=== PATIENT | male | born 1950 | race African-American/Black ===

== ENCOUNTER 2017-05-01 11:02 | Emergency (ER) | payer MEDICARE ==
--- NOTE | 2017-05-01 12:18 | RAD ---
PA AND LATERAL CHEST: INDICATIONS: Shortness of breath and upper back pain. COMPARISON: Prior exam dated 04/22/2005. FINDINGS: There is mild cardiomegaly, which has developed in the interim. Pulmonary vasculature is within nor mal limits. No air space consolidation or pleural effusion is evident. There is spondylosis of the thoracic spine. IMPRESSION: 1. Interval development of mild to moderate cardiomegaly. 2. No definite acute abnormality. POS: KATHY
[2017-05-01] MEDS ORDERED: Acetaminophen/Codeine 30-300mg Tablet ONE (13:12)
[2017-05-01] MEDS ORDERED: Diazepam 5 MG TAB ONE (13:13)
== END 2017-05-01 13:20 | disposition home or self-care (01) ==
LOC: SCSER 11:02
DX: T14.8XXA Other injury of unspecified body region, initial encounter (principal); M54.9 Dorsalgia, unspecified; E11.9 Type 2 diabetes mellitus without complications; E78.5 Hyperlipidemia, unspecified; I10 Essential (primary) hypertension; Z85.46 Personal history of malignant neoplasm of prostate
CPT/HCPCS: 71020; 93005

== ENCOUNTER 2017-05-27 09:46 | Outpatient (CLI) | payer MEDICARE ==
--- NOTE | 2017-05-27 15:34 | NM ---
WHOLE BODY BONE SCAN: HISTORY: Prostate cancer with bone mets. RADIOPHARMACEUTICAL: 33 mCi Technetium 99m-MDP injected intravenously. COMPARISON: 09/08/16. FINDINGS: There has been interval reduction in the number of foci of increased uptake in the skeleton including the skull, rib cage, spine, sacrum, sternum, and scapulae. There is tracer in the urinary bladder. Poor visualization of the kidneys is noted on the current and the comparison study. IMPRESSION: Interval improvement in osseous metastatic disease since 09/08/16. POS: ABDOUL
== END 2017-05-27 09:47 | disposition home or self-care (01) ==
LOC: NM 09:46
PROVIDERS: ATTEND Internal Medicine Hematology & Oncology
DX: C79.51 Secondary malignant neoplasm of bone (principal); Z85.46 Personal history of malignant neoplasm of prostate
CPT/HCPCS: 78306; A9503

== ENCOUNTER 2017-06-10 11:36 | Outpatient (CLI) | payer MEDICARE | END 2017-06-10 11:37 | disposition home or self-care (01) | LOC: BICRAD 11:36 | PROVIDERS: ATTEND Internal Medicine Gastroenterology | DX: K59.09 Other constipation (principal); K57.30 Diverticulosis of large intestine without perforation or abscess without bleeding; R14.0 Abdominal distension (gaseous); Z98.890 Other specified postprocedural states | CPT/HCPCS: 74020 ==

== ENCOUNTER 2017-10-02 15:06 | Outpatient (CLI) | payer MEDICARE | END 2017-10-02 15:07 | disposition home or self-care (01) | LOC: BICRAD 15:06 | PROVIDERS: ATTEND Family Medicine | DX: J20.8 Acute bronchitis due to other specified organisms (principal) | CPT/HCPCS: 71046 ==

== ENCOUNTER 2017-12-01 08:35 | Outpatient (CLI) | payer MEDICARE ==
--- NOTE | 2017-12-01 14:11 | NM ---
WHOLE BODY BONE SCAN: Date: 12/01/17 HISTORY: Prostate cancer with bone mets. RADIOPHARMACEUTICAL: 31 mCi technetium-99m MDP injected intravenously. COMPARISON: 05/27/17. FINDINGS: There has been interval development of focal increased uptake in the ribs and left calvarium. The foc i of increased uptake noted on the previous exam in the spine, sacrum, sternum, scapulae, and facial bones are again seen. There is tracer material in the urinary bladder. There is poor visualization of the kidneys, which wa s also noted on the previous exams. IMPRESSION: Interval worsening of osseous metastatic disease since 05/27/17. POS: KATHY
== END 2017-12-01 08:36 | disposition home or self-care (01) ==
LOC: NM 08:35
PROVIDERS: ATTEND Internal Medicine Hematology & Oncology
DX: C61 Malignant neoplasm of prostate (principal); C79.51 Secondary malignant neoplasm of bone
CPT/HCPCS: 78306; A9503

== ENCOUNTER 2017-12-07 12:16 | Emergency (ER) | payer MEDICARE ==
[2017-12-07] MEDS ORDERED: Mineral Oil ENEMA ONE (12:48)
[2017-12-07 13:25] LABS: #Basophils 0.1 thou/uL (0.0-0.2); #Eosinphils 0.1 thou/uL (0.0-0.7); #Lymphocytes 2.1 thou/uL (1.20-3.40); #Monocytes 0.8 thou/uL (0.11-0.59); #Neutrophils 5.2 thou/uL (1.40-6.50); %Basophils 1.2 % (0.0-1.0); %Eosinophils 1.1 % (0.0-10.0); %Lymphocytes 25.5 % (21.0-51.0); %Monocytes 9.5 % (0.0-10.0); %Neutrophils 62.7 % (42.0-75.0); Hemoglobin 10.6 g/dL (14.0-18.0); Mean Corpuscular HGB CONC 31.7 g/dL (32.0-36.0); Mean Corpuscular Hemoglobin 28.9 pg (27.0-31.0); Mean Platelet Volume 7.4 fL (7.4-10.4); Platelet Count 224 thou/uL (130-400); RBC Distribution Width 15.7 % (11.5-14.5); Red Blood Cell (RBC) Count 3.67 mill/uL (4.70-6.10); White Blood Cell (WBC) Count 8.3 thou/uL (4.8-10.8)
[2017-12-07] MEDS ORDERED: Acetaminophen/Codeine 30-300mg Tablet ONE ×2 (13:35)
== END 2017-12-07 13:41 | disposition home or self-care (01) ==
LOC: SCSER 12:16
DX: K59.00 Constipation, unspecified (principal); E11.9 Type 2 diabetes mellitus without complications; E78.5 Hyperlipidemia, unspecified; Z79.4 Long term (current) use of insulin; Z79.899 Other long term (current) drug therapy; Z79.82 Long term (current) use of aspirin
CPT/HCPCS: 85025; 99283

== ENCOUNTER → 2017-12-24 | Outpatient (CLI) | payer MEDICARE | LOC: SCSMRI 12:23 → SCSLAB 13:00 | PROVIDERS: ATTEND Internal Medicine Hematology & Oncology | DX: C61 Malignant neoplasm of prostate (principal); C79.51 Secondary malignant neoplasm of bone; M79.651 Pain in right thigh; M25.551 Pain in right hip | CPT/HCPCS: 82565 ==

== ENCOUNTER 2018-02-01 14:30 | Outpatient (CLI) | payer MEDICARE ==
[~2018-02-01 14:30] MED LIST: Gadobenate Dimeglumine 529 MG/1 ML (20ML VIAL) ONE
--- NOTE | 2018-02-01 19:52 | MRI ---
MRI LUMBAR SPINE WITH AND WITHOUT CONTRAST: 02/01/18 INDICATION: Malignant neoplasm of prostate, right thigh and hip pain. FINDINGS: Diffuse abnormal marrow signal with multifocal T1 hypointensities does indicate diffuse metastatic di sease in light of patient's history as well as a recent abnormal bone scan, 12/01/17. In addition, the re is an abnormal, ovoid, soft tissue lesion of the anterior right subarticular zone of the inferior L2-3 disc space level, through the cephalad L3-4 disc space level, resulting in obliteration of the r ight side nerve roots as well as impression upon the thecal sac. The largest extent of this finding i s craniocaudal in dimension, at approximately 2.4 cm. Suggestion of subtle, internal enhancement, alt fidelina no well defined peripheral enhancement to indicate disc material and therefore, a metastatic le [place] is favored based on the imaging characteristics. No significant mass effect upon the imaged conu s medullaris, which terminates at the T12-L1 level. No pathologic intramedullary enhancement is ident ified. Within the partially imaged osseous structures, of the pelvis, bilaterally, there are diffuse abnorma l foci of marrow signal alteration indicative of metastatic disease. Incidental note of bilateral renal cysts, marked atrophy of left kidney and prominent sized cystic ri ght renal plvis, incompletely evaluated on the basis of this exam. A partially imaged right lower anyi drant/right hemipelvic renal transplant is seen. Age expected degenerative findings are seen within the lumbar spine. There is trace spondylolisthesis at L5-S1. IMPRESSION: Diffuse osseous metastatic disease. In addition, there is a soft tissue lesion of the vertebral canal centered at the L3 level, right subarticular region with imaging features that favor metastatic lesi on over extruded disc material, as discussed above. POS: ABDOUL
--- NOTE | 2018-02-05 14:55 | MRI ---
MRI PELVIS WITH AND WITHOUT CONTRAST: Date: 02/01/18 HISTORY: C61 prostate cancer, C79.51 bone mets. COMPARISON: Nuclear medicine bone scan dated 12/01/17. FINDINGS: Prostate: There has been prior prostatectomy. No abnormal focal area of enhancement within the prostatectomy be d. The exam was not adequately performed for a prostate protocol. There is abnormal thickening of the sigmoid colon with extensive diverticular disease. No evidence fo r active inflammation. Bones: Extensive osseous metastatic disease throughout the hips bilaterally. No pathologic fracture is appre ciated. Severe degenerative change of the pubic symphysis. Lymph Nodes: No abnormal adenopathy of the pelvis. Right pelvic kidney is present. IMPRESSION: 1. No evidence of abnormal residual tumor within the prostatectomy bed. 2. Severe thickening of the sigmoid colon, may be sequelae of prior bouts of diverticulitis, althoug h mass cannot be totally excluded. Recommend correlation with patient's colonoscopy. 3. Extensive osseous metastatic disease. 4. Right pelvic kidney. 5. No obturator or internal iliac adenopathy. POS: ABDOUL
== END 2018-02-01 14:31 | disposition home or self-care (01) ==
LOC: TBSIIMAG 14:30
PROVIDERS: ATTEND Internal Medicine Hematology & Oncology
DX: C79.51 Secondary malignant neoplasm of bone (principal); M79.651 Pain in right thigh; K63.89 Other specified diseases of intestine; G95.89 Other specified diseases of spinal cord; Z85.46 Personal history of malignant neoplasm of prostate
CPT/HCPCS: 72158; 72197; 82565; A9579

== ENCOUNTER 2018-04-15 15:28 | Outpatient (CLI) | payer MEDICARE ==
--- NOTE | 2018-04-16 10:45 | CT ---
LEFT LOWER EXTREMITY CT WITHOUT IV CONTRAST: History: 68-year-old male with history of prostate CA with bone metastasis. FINDINGS: Noncontrast CT examination of the left lower extremity from the superior acetabular region down to ju st below the level of the knee. There is some heterogeneous mildly sclerotic changes within the left visualized pelvis, evidence for bone metastasis. In the left femoral shaft there are multiple endosteal foci of abnormal increased de nsity, evidence for metaphysis, the most prominent of which is at the junction of the subtrochanteric and femoral shaft. This focus measures 1 x 1.3 x 1.4 cm in size. There are multiple other foci of ab normal increased attenuation changes within the medullary canal in an endosteal location down the sha ft, evidence for multiple metastasis. No evidence for a pathologic fracture. IMPRESSION: Multiple endosteal metastasis from the subtrochanteric region down into the femoral shaft. Some scler otic foci within the left hemipelvis. No evidence for a pathologic fracture. POS: ABDOUL
--- NOTE | 2018-04-16 11:20 | CT ---
LUMBAR SPINE CT SCAN WITHOUT IV CONTRAST: History: 68-year-old male with history of prostate cancer with low back pain and left hip pain. Comparison: Prior lumbar spine MRI, 02-01-18; bone scan, 12-01-17. FINDINGS: Extensive sclerotic and lytic bone metastasis throughout the entire lumbar spine vertebrae including the sacrum. There is some central vertical height loss of T11 vertebral body which appears to be new when compared to the prior MRI which could represent a new mild, possibly pathologic central compress ion injury. The [place] kidneys are small and show some cystic changes, particularly on the right side . There is a 0.9 x 1.5 x 2.5 cm diameter extradural mass on the right side at the L3 vertebral body l evel, evidence for metastasis. This does not appear to be significantly changed from the prior MR. Th ere is a focal extruded disc at L4-5 in the left paracentral area containing gas. IMPRESSION: Extensive lytic and sclerotic bone metastasis throughout the lumbar spine. Minimal central vertical h eight loss at T11 vertebral body, new from the prior MRI study of 02-01-18 raising concern for an inte rvening pathologic compression fracture. Stable right extradural soft tissue mass, evidence for metas tasis at the L3 vertebral body, unchanged from prior MRI. Other findings as above. POS: ABDOUL
== END 2018-04-15 15:29 | disposition home or self-care (01) ==
LOC: BICCT 15:28
PROVIDERS: ATTEND Internal Medicine Hematology & Oncology
DX: C79.51 Secondary malignant neoplasm of bone (principal); Z85.46 Personal history of malignant neoplasm of prostate
CPT/HCPCS: 72131

== ENCOUNTER 2018-04-20 09:34 | Outpatient (CLI) | payer MEDICARE ==
[2018-04-20] MEDS ORDERED: Gadobenate Dimeglumine 529 MG/1 ML (20ML VIAL) ONE (10:39)
--- NOTE | 2018-04-20 16:01 | MRI ---
MRI OF THE THORACIC SPINE WITHOUT AND WITH CONTRAST: COMPARISON: None. HISTORY: Prostate cancer with bone metastases. Evaluate for impending spinal cord compression. TECHNIQUE: Multiplanar, multisequence MR images were obtained of the thoracic spine without and with IV contrast . FINDINGS: There is a heterogeneous appearance of the marrow signal with low signal on T1 images consistent with a diffuse marrow infiltrative process. This is consistent with the patient's diagnosis of osseous m etastases from prostate cancer. There is a 1.7 cm nodule along the right aspect of the lower thoraci c vertebral body. The visualized cord demonstrates normal signal throughout. The paraspinal soft ti ssues are unremarkable. No abnormal enhancement is seen within the central canal. No significant posterior bulging of the po sterior aspect of the vertebral body is seen. No significant posterior bulge or protrusion is seen t hroughout the thoracic spine. No neural foraminal stenosis. No central canal stenosis. IMPRESSION: 1. Diffuse osseous metastatic disease without significant central canal impingement or cord compress ion. 2. There is a nodule adjacent to the right aspect of the lower thoracic vertebral body which may rep resent an enlarged retroperitoneal or retrocrural lymph node. POS: TPC
== END 2018-04-20 09:35 | disposition home or self-care (01) ==
LOC: MRI 09:34
PROVIDERS: ATTEND Radiology Radiation Oncology
DX: C79.51 Secondary malignant neoplasm of bone (principal); C61 Malignant neoplasm of prostate; M89.9 Disorder of bone, unspecified
CPT/HCPCS: 72157; A9579

== ENCOUNTER 2018-04-25 09:38 | Inpatient (IN) | payer MEDICARE ==
[2018-04-25 10:24] LABS: #Eosinphils 0.1 thou/uL (0.0-0.7); #Lymphocytes 2.5 thou/uL (1.20-3.40); #Monocytes 0.9 thou/uL (0.11-0.59); #Neutrophils 6.9 thou/uL (1.40-6.50); %Basophils 0.3 % (0.0-1.0); %Eosinophils 1.3 % (0.0-10.0); %Lymphocytes 23.9 % (21.0-51.0); %Monocytes 8.5 % (0.0-10.0); %Neutrophils 66.1 % (42.0-75.0); Hemoglobin 10.9 g/dL (14.0-18.0); Mean Corpuscular HGB CONC 31.9 g/dL (32.0-36.0); Mean Corpuscular Hemoglobin 29.1 pg (27.0-31.0); Mean Corpuscular Volume 91.4 fL (78.0-98.0); Mean Platelet Volume 7.1 fL (7.4-10.4); Platelet Count 317 thou/uL (130-400); RBC Distribution Width 16.6 % (11.5-14.5); Red Blood Cell (RBC) Count 3.75 mill/uL (4.70-6.10); White Blood Cell (WBC) Count 10.5 thou/uL (4.8-10.8)
[2018-04-25] MEDS ORDERED: cefTRIAXone\\ROCEPHIN 2 GM VIAL ONE (10:31)
[2018-04-25] MEDS ORDERED: Acetaminophen 500 MG TAB ONE (10:32)
[2018-04-25 11:00] LABS: ALT (SGPT) Less than 7 U/L (8-55); AST (SGOT) 20 U/L (5-34); Albumin 3.8 g/dL (3.4-4.8); Alkaline Phosphatase 219 U/L (40-150); Anion Gap 17 mmol/L (10-20); BUN (Urea Nitrogen) 33 mg/dL (8.4-25.7); Bilirubin, Total 0.5 mg/dL (0.2-1.2); Calc. Creatinine Clearance 0 mL/min (70-130); Calcium 9.6 mg/dL (7.8-10.44); Carbon Dioxide 23 mmol/L (23-31); Chloride 96 mmol/L (98-107); Estimated GFR-MDRD 48; Globulin 3.3 g/dL (2.4-3.5); Glucose 196 mg/dL (80-115); Potassium 5.1 mmol/L (3.5-5.1); Protein, Total 7.1 g/dL (5.8-8.1); Sodium 131 mmol/L (136-145)
--- NOTE | 2018-04-25 11:38 | PDOC.FPRHP ---
- History of Present Illness Chief Complaint: AMS History of Present Illness: Mr. Joseph presents to the ED today with his family for AMS for two days He reports starting to feel bad a few days ago, multiple complaints including SOB, muscle aches, chills, fever. Denies any chest pain, weakness, urinary burning/incontinence or syncope. He had a renal transplant over 10 years ago, family is very cognizant of being careful with his kidneys, number for transplant doctor was provided. He has been taking all of his medications as prescribed, no sick contacts. ED Course: CBC, CMP, LA, CT, EKG, BCx rocephin, vanc, 1L NS refusing to give UA - Allergies/Adverse Reactions Allergies Allergy/AdvReac Type Severity Reaction Status Date / Time adhesive tape Allergy Verified 04/25/18 15:08 Latex, Natural Rubber Allergy Verified 04/25/18 15:08 morphine Allergy Verified 10/14/16 18:51 NSAIDS (Non-Steroidal Allergy Verified 04/25/18 15:08 Anti-Inflamma Penicillins Allergy Severe Verified 10/14/16 18:51 Hives povidone-iodine Allergy Rash Verified 10/14/16 18:51 [From Betadine] soap [From Betadine] Allergy Rash Verified 10/14/16 18:51 Tetracyclines Allergy Verified 10/14/16 18:51 lisinopril AdvReac Mild COUGHING Verified 10/14/16 18:51 - Home Medications Medication Instructions Recorded Confirmed Type Albuterol Sulfate [Albuterol 1.25 mg NEB Q8HR PRN 02/18/15 04/25/18 History Sulfate Neb] Amitriptyline HCl [Elavil] 20 mg PO HS 02/18/15 04/25/18 History Aspirin [Aspirin EC] 325 mg PO DAILY 02/18/15 04/25/18 History Atorvastatin Calcium [Lipitor] 10 mg PO DAILY 02/18/15 04/25/18 History Calcitriol 0.25 mcg PO DAILY 02/18/15 04/25/18 History Cetirizine HCl [Zyrtec] 10 mg PO QPM 02/18/15 04/25/18 History Esomeprazole Magnesium [NexIUM] 40 mg PO DAILY 02/18/15 04/25/18 History Metoprolol Succinate [Toprol XL] 1 tab PO BID 02/18/15 04/25/18 History Mycophenolate Mofetil 500 mg PO BID 02/18/15 04/25/18 History Tacrolimus 1 mg PO BID 02/18/15 04/25/18 History amLODIPine Besylate [Norvasc] 2.5 mg PO DAILY 02/18/15 04/25/18 History predniSONE 5 mg PO QAM- 02/18/15 04/25/18 History Allopurinol 3 tab PO DAILY 05/09/15 04/25/18 History Bumetanide [Bumex] 1 tab PO DAILY 10/14/16 04/25/18 History Gabapentin 0.5 tab PO DAILY 10/14/16 04/25/18 History Montelukast Sodium [Singulair] 10 mg PO QAM 10/14/16 04/25/18 History tiZANidine HCl [Tizanidine HCl] 1 tab PO TID PRN 10/14/16 04/25/18 History Abiraterone Acetate [Zytiga] 1,000 mg PO DAILY 04/25/18 04/25/18 History Albuterol Sulfate [Proair HFA] 2 puff INH Q4HR PRN 04/25/18 04/25/18 History Colchicine [Colcrys] 0.6 mg PO BID PRN 04/25/18 04/25/18 History Docusate [Colace] 100 mg PO DAILY 04/25/18 04/25/18 History Gabapentin 900 mg PO HS 04/25/18 04/25/18 History HYDROcodone/Acetaminophen [[place] 1 each PO QID PRN 04/25/18 04/25/18 History 10-325 Tablet] Ondansetron HCl [Zofran] 8 mg PO QID PRN 04/25/18 04/25/18 History Sennosides [Senna Lax] 8.6 mg PO BID PRN 04/25/18 04/25/18 History traMADol HCl [Tramadol HCl] 50 mg PO TID PRN 04/25/18 04/25/18 History - History PMHx: s/p renal transplant, COPD, DM, HTN, OA PSHx: renal transplant, cholecystectomy FHx: NC Social: No TAD - Review of Systems General: reports: fever/chills. denies: weight/appetite/sleep changes, night sweats Eyes: denies: eye pain, vision changes ENT: denies: nasal congestion, rhinorrhea Respiratory: reports: shortness of breath. denies: cough, congestion Cardiovascular: denies: chest pain, palpitation, edema Gastrointestinal: reports: nausea, diarrhea. denies: vomiting, constipation, GI bleeding Genitourinary: denies: incontinence, dysuria, polyuria Skin: denies: rashes, lesions Musculoskeletal: denies: pain, tenderness Neurological: denies: numbness, syncope - Vital signs BP: [185/90] HR: [96] RR: [20] Tmax: [99] Pox: [97]% on [RA] Wt: [121.56kg] - Physical Exam Constitutional: NAD, well developed HEENT: normocephalic and atraumatic, EOMI, grossly normal vision, grossly normal hearing Neck: supple, trachea midline Chest: no-tender to palpation Heart: RRR, normal S1/S2, no murmurs/rubs/gallops, no edema Lungs: CTAB, no respiratory distress Abdomen: soft, non-tender, bowel sounds present Musculoskeletal: normal structure, normal tone, ROM grossly normal Neurological: no focal deficit, CN II-XII intact Skin: no rash/lesions, good turgor Heme/Lymphatic: no unusual bruising or bleeding Psychiatric: normal mood and affect FMR H&P: Results - Labs Result Diagrams: 04/26/18 04:26 04/26/18 04:26 Lab results: WBC 10.5 thou/uL (4.8-10.8) 04/25/18 10:07 Hgb 10.9 g/dL (14.0-18.0) L 04/25/18 10:07 Hct 34.2 % (42.0-52.0) L 04/25/18 10:07 MCV 91.4 fL (78.0-98.0) 04/25/18 10:07 Plt Count 317 thou/uL (130-400) 04/25/18 10:07 Neutrophils % 66.1 % (42.0-75.0) 04/25/18 10:07 Sodium 131 mmol/L (136-145) L 04/25/18 10:07 Potassium 5.1 mmol/L (3.5-5.1) 04/25/18 10:07 Chloride 96 mmol/L (98-107) L 04/25/18 10:07 Carbon Dioxide 23 mmol/L (23-31) 04/25/18 10:07 BUN 33 mg/dL (8.4-25.7) H 04/25/18 10:07 Creatinine 1.71 mg/dL (0.6-1.3) H 04/25/18 10:07 Glucose 196 mg/dL (80-115) H 04/25/18 10:07 Lactic Acid 3.5 mmol/L (0.5-2.2) H 04/25/18 10:07 Calcium 9.6 mg/dL (7.8-10.44) 04/25/18 10:07 Total Bilirubin 0.5 mg/dL (0.2-1.2) 04/25/18 10:07 AST 20 U/L (5-34) 04/25/18 10:07 ALT Less than 7 U/L (8-55) L 04/25/18 10:07 Alkaline Phosphatase 219 U/L (40-150) H 04/25/18 10:07 Serum Total Protein 7.1 g/dL (5.8-8.1) 04/25/18 10:07 Albumin 3.8 g/dL (3.4-4.8) 04/25/18 10:07 FMR H&P: A/P - Problem List (1) SIRS (systemic inflammatory response syndrome) Current Visit: Yes Status: Acute Code(s): R65.10 - SIRS OF NON-INFECTIOUS ORIGIN W/O ACUTE ORGAN DYSFUNCTION (2) COPD (chronic obstructive pulmonary disease) Current Visit: No Status: Acute Qualifiers: COPD type: COPD with acute exacerbation Qualified Code(s): J44.1 - Chronic obstructive pulmonary disease with (acute) exacerbation (3) GERD (gastroesophageal reflux disease) Current Visit: No Status: Acute Code(s): K21.9 - GASTRO-ESOPHAGEAL REFLUX DISEASE WITHOUT ESOPHAGITIS (4) Hypothyroid Current Visit: No Status: Acute Code(s): E03.9 - HYPOTHYROIDISM, UNSPECIFIED (5) Prostate cancer Current Visit: No Status: Acute Code(s): C61 - MALIGNANT NEOPLASM OF PROSTATE (6) Hx of kidney transplant Current Visit: No Status: Chronic (7) IDDM (insulin dependent diabetes mellitus) Current Visit: No Status: Chronic Code(s): E11.9 - TYPE 2 DIABETES MELLITUS WITHOUT COMPLICATIONS; Z79.4 - MANAGER TRAVEL (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 OF INSULIN (8) JUDI on CPAP Current Visit: No Status: Chronic Code(s): G47.33 - OBSTRUCTIVE SLEEP APNEA (ADULT) (PEDIATRIC) - Plan SIRS - elevated temperature, LA, tachycardia - negative CXR, UA, CT brain, BCx pending - vanc (renal dose) cefepime - s/p 30ml/kg in ED Hx of Renal transplant - avoid nephrotoxic meds, renal dosing meds - contact transplant doctor in AM Prostate cancer - began radiation this week - consider reaction as possible source COPD - no concern for exacerbation - continue home meds GERD - continue home meds Hypothyroid -continue home meds JUDI on Bipap - ordered for nighttime use ppx: [facility] Code: full Disposition/LOS: treat for SIRS w/o a source, monitor on tele, possible DC in 2-3 days FMR H&P: Upper Level - Pertinent history Osbaldo Joseph is a 68 year old male brought to the ED by his and daughter due to acute confusion. Per pt's , he was mumbling and confused earlier this morning. He was found to have a rectal temperature of 102 in the ED. - Pertinent findings Physical Exam General: alert and oriented x 2 Heart: regular rate and rhythm, no murmurs, rubs, or gallops Lungs: clear to auscultation bilaterally Extremities: normal bulk and tone. Neuro: CN II-XII intact grossly; no focal deficits. Skin: no rashes or lesions. - Plan Date/Time: 04/25/18 1136 IMary have evaluated this patient and agree with findings/plan as outlined by manager internal resident. Pertinent changes/additions are listed here. SIRS - fever and pulse of 90s in ED. - blood cultures and urine cultures ordered in ED. - fluids and empiric antibiotics started in ED. - No source of infection identified yet. Acute encephalopathy - differentials include infection, toxin, metabolic, organic brain disease, etc. - CT head negative. - UDS pending - possibly related to infection, see above. Hypertension - resume home meds. CKD, s/p renal transplant - will appropriately renal dose medications - resume home antirejection meds. History of metastatic prostate cancer. - s/p partial prostatectomy; began radiation recently. - takes [place] at home for back pain Attending Addendum - Attending Addendum Date/Time: 04/25/18 426 I personally evaluated the patient and discussed the management with Dr. Peralta and Dr. Reyna I agree with the History, Examination, Assessment and Plan documented above with any addition or exceptions noted below. 68 yo male with multiple medical conditions admitted for AMS. Patient appears mildly confused on exam but able to answer questions and is aware of surroundings. Appears tired. Has to be redirected. VS reviewed. Labs reviewed. Imaging reviewed. 1. Encephalopathy: Infection workup negative at present. Concerned this possibly medication related. 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 Continue complete and comprehensive workup. Patient also with Severe range BP in ER. Concern this related to HTN encephalopathy. Will continue to improve BP by 20%. Rectal temp in ER concerning for infectious source but workup negative so far. Will treat empirically with antibiotics. If continues to fever and no source would rule out endocarditis. Consider fungal vs viral as well due to immuniocompromised state from renal transplant. Will check HIV and RPR if not recently done. Continue IV fluids as well. Trend lactic acid. Procal low risk for serious bacterial infection but would trend in AM to verify. Monitor closely. Trend trops for cardiac cause. Michael
--- NOTE | 2018-04-25 12:11 | RAD ---
PORTABLE CHEST: HISTORY: Sepsis. History of prostate cancer. COMPARISON: 02/17/2015 study. FINDINGS: Heart size is enlarged. Aorta is tortuous. The lungs are clear of infiltrates. IMPRESSION: Mild cardiomegaly. POS: KATHYH
--- NOTE | 2018-04-25 12:37 | CT ---
CT BRAIN WITHOUT CONTRAST: HISTORY: Altered mental status, weakness. Patient on radiation therapy for prostate cancer. FINDINGS: Comparison is made with the exam of 05/12/2014. 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 No evidence of acute infarct, hemorrha ge, midline shift, or abnormal extraaxial fluid collections is seen. The ventricular size is appropr iate and the basilar cisterns are patent. The bony calvarium is intact. The visualized paranasal si nuses and mastoid air cells are well aerated. IMPRESSION: No CT evidence of acute intracranial process. POS: [facility]
[2018-04-25] MEDS ORDERED: Ondansetron ODT 4 MG TAB PO PRN (14:01)
[2018-04-25] MEDS ORDERED: Acetaminophen 325 MG TAB PO PRN (14:01)
[2018-04-25] MEDS: Lactated Ringer's 1,000 ML IV SCH ×3 (14:55→17:31)
[2018-04-25 15:10] VITALS: BMI 39.5
[2018-04-25 15:55] LABS: Amphetamine Not Detected (NotDetected); Barbiturates Screen Not Detected (NotDetected); Benzodiazepine Screen Not Detected (NotDetected); Cocaine Metabolite Screen Not Detected (NotDetected); Medtox Control Line Valid? VALID (VALID); Medtox Reader # READER 4; Methadone Not Detected (NotDetected); Methamphetamine Not Detected (NotDetected); Opiate Screen Detected (NotDetected); Oxycodone Screen Not Detected (NotDetected); Phencyclidine (PCP) Not Detected (NotDetected); THC/Cannabinoid Screen Not Detected (NotDetected); Tricyclic Screen Detected (NotDetected)
[2018-04-25 17:42] LABS: Bilirubin Negative (Negative); Blood, Urine Negative (Negative); Clarity CLOUDY (Clear); Glucose, Urine (Dipstick) Negative (Negative); Leukocyte Negative (Negative); Nitrite Negative (Negative); Protein, Urine (Dipstick) Trace mg/dL (Neg-Trace); Specific Gravity, Urine 1.022 (1.002-1.036); pH, Urine 5.5 (5.0-9.0)
[2018-04-25] MEDS ORDERED: PROVENTIL INHALER 6.7 G (200 INHALATIONS) INH PRN (21:07)
[2018-04-25] MEDS ORDERED: Albuterol Sulfate 1.25 MG/3 ML NEB NEB PRN (21:07)
[2018-04-25] MEDS ORDERED: Senokot 8.6 MG TAB PO PRN (21:07)
[2018-04-25] MEDS ORDERED: tiZANidine HCl 4 MG TAB PO PRN (21:07)
[2018-04-25] MEDS ORDERED: Cetirizine HCl 10 MG TAB PO SCH (22:00)
[2018-04-25] MEDS ORDERED: Amitriptyline HCl 10 MG TAB PO SCH (22:00)
[2018-04-25] MEDS ORDERED: Gabapentin 300 MG CAP PO SCH (22:00)
[2018-04-25] MEDS ORDERED: Mycophenolate 250 MG CAP PO SCH (22:00)
[2018-04-25] MEDS ORDERED: Tacrolimus 0.5 MG CAP PO SCH (22:00)
[2018-04-25] MEDS ORDERED: Tacrolimus 1 MG CAP PO SCH (22:00)
[2018-04-25] MEDS: Cefepime 2 GM in Sodium Chloride 0.9% 100 ML IVPB SCH (22:07)
[2018-04-25] MEDS: HYDROcodone/Acetaminophen 10/325 mg Tablet PO PRN (22:10)
[2018-04-25] MEDS: Vancomycin HCl 1.75 GM in Sodium Chloride 0.9% 500 ML IVPB SCH (23:35)
[2018-04-26 04:49] LABS: #Eosinphils 0.1 thou/uL (0.0-0.7); #Lymphocytes 2.2 thou/uL (1.20-3.40); #Monocytes 0.9 thou/uL (0.11-0.59); #Neutrophils 6.1 thou/uL (1.40-6.50); %Basophils 0.5 % (0.0-1.0); %Eosinophils 1.1 % (0.0-10.0); %Lymphocytes 23.6 % (21.0-51.0); %Neutrophils 64.7 % (42.0-75.0); Hemoglobin 9.5 g/dL (14.0-18.0); Mean Corpuscular Hemoglobin 29.3 pg (27.0-31.0); Mean Corpuscular Volume 91.4 fL (78.0-98.0); Mean Platelet Volume 7.6 fL (7.4-10.4); Platelet Count 245 thou/uL (130-400); RBC Distribution Width 16.8 % (11.5-14.5); Red Blood Cell (RBC) Count 3.25 mill/uL (4.70-6.10); White Blood Cell (WBC) Count 9.4 thou/uL (4.8-10.8)
[2018-04-26 05:17] LABS: ALT (SGPT) Less than 7 U/L (8-55); AST (SGOT) 14 U/L (5-34); Alkaline Phosphatase 160 U/L (40-150); Anion Gap 15 mmol/L (10-20); BUN (Urea Nitrogen) 22 mg/dL (8.4-25.7); Bilirubin, Total 0.4 mg/dL (0.2-1.2); Calc. Creatinine Clearance 111 mL/min (70-130); Calcium 8.7 mg/dL (7.8-10.44); Carbon Dioxide 18 mmol/L (23-31); Chloride 106 mmol/L (98-107); Estimated GFR-MDRD 82; Globulin 3.4 g/dL (2.4-3.5); Glucose 155 mg/dL (80-115); Potassium 4.8 mmol/L (3.5-5.1); Protein, Total 6.4 g/dL (5.8-8.1); Sodium 134 mmol/L (136-145)
--- NOTE | 2018-04-26 06:55 | PDOC.FM ---
- Subjective Subjective: Patient is much improved this mornign. Does endorse some nausea. Otherwise, reports back to baseline mental state AOx3. No acute events overnight. Denies urinary problems, cp, sob, and seaman. - Objective MAR Reviewed: Yes Vital Signs & Weight: Vital Signs (12 hours) Temp Pulse Resp BP Pulse Ox 04/26/18 04:00 98.2 F 76 18 136/65 95 04/26/18 00:00 98.3 F 76 18 152/66 H 92 L 04/25/18 21:00 98.3 F 72 18 152/73 H 93 L 04/25/18 20:00 93 L Weight Weight 121.56 kg I&O: 04/24/18 04/25/18 04/26/18 07:59 06:59 06:59 Intake Total 2240 Output Total 200 Balance 2039 Result Diagrams: 04/26/18 04:26 04/26/18 04:26 Phys Exam - Physical Examination Constitutional: NAD HEENT: PERRLA, moist MMs Respiratory: no wheezing, no rales, clear to auscultation bilateral Cardiovascular: RRR, no significant murmur Gastrointestinal: soft, non-tender, positive bowel sounds mildly distended 1+ edema b/l Neurological: non-focal, normal sensation, moves all 4 limbs Psychiatric: normal affect, A&O x 3 Dx/Plan (1) SIRS (systemic inflammatory response syndrome) Code(s): R65.10 - SIRS OF NON-INFECTIOUS ORIGIN W/O ACUTE ORGAN DYSFUNCTION Status: Acute (2) Prostate cancer Code(s): C61 - MALIGNANT NEOPLASM OF PROSTATE Status: Acute (3) CKD (chronic kidney disease) stage 3, GFR 30-59 ml/min Status: Chronic (4) Hx of kidney transplant Status: Chronic (5) IDDM (insulin dependent diabetes mellitus) Code(s): E11.9 - TYPE 2 DIABETES MELLITUS WITHOUT COMPLICATIONS; Z79.4 - MACHINE SHOP APPRENTICE (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 OF INSULIN Status: Chronic (6) JUDI on CPAP Code(s): G47.33 - OBSTRUCTIVE SLEEP APNEA (ADULT) (PEDIATRIC) Status: Chronic - Plan Plan: SIRS - fever and pulse of 90s in ED, now resolved - blood cultures and urine cultures NGTD - currently on broad spec abx, Vanc and Cefepime, continue until cultures negative - No source of infection identified yet - procalcitonin 0.25, likely not infectious but with immunocompromised state will continue abx. Acute encephalopathy - differentials include infection, toxin, metabolic, organic brain disease, etc. - CT head negative. - UDS positive for opiods and TCA's which he is prescribed - possibly related to infection or recent radiation treatment Prostate Cancer with Metastasis - consult onc Hypertension - resume home meds. CKD, s/p renal transplant - will appropriately renal dose medications - resume home antirejection meds. - will touch base with transplant doctor History of metastatic prostate cancer. - s/p partial prostatectomy; began radiation recently. - takes [place] at home for back pain IDDM: - Continue home meds, currently BS at goal HLD: - continue home meds HTN: Continue amlodipine and bumex JUDI on CPAP: - continue CPAP use VTE Ppx: heparin Code status: Full IVF: LR at 120 Dispo: Likely d/c after 48 hours if cultures negative.
[2018-04-26] MEDS: Lactated Ringer's 1,000 ML IV SCH ×3 (07:47→17:35)
[2018-04-26] MEDS: Abiraterone Acetate [Zytiga] 250 MG PO SCH (07:53)
[2018-04-26] MEDS: Ondansetron ODT 8 MG TAB PO PRN ×2 (08:56→20:36)
[2018-04-26] MEDS: Cefepime 2 GM in Sodium Chloride 0.9% 100 ML IVPB SCH ×2 (08:56→20:32)
[2018-04-26] MEDS: Bumetanide 1 MG TAB PO SCH (09:20)
[2018-04-26] MEDS: Calcitriol 0.25 MCG CAP PO SCH (09:20)
[2018-04-26] MEDS: Montelukast Sodium 10 mg Tablet PO SCH (09:20)
[2018-04-26] MEDS: Tacrolimus 1 MG CAP PO SCH ×2 (09:20→20:31)
[2018-04-26] MEDS: Docusate 100 MG CAP PO SCH (09:21)
[2018-04-26] MEDS: predniSONE 5 MG TAB PO SCH (09:21)
[2018-04-26] MEDS: Allopurinol 300 MG TAB PO SCH (09:21)
[2018-04-26] MEDS: Atorvastatin Calcium 10 MG TAB PO SCH (09:21)
[2018-04-26] MEDS: HYDROcodone/Acetaminophen 10/325 mg Tablet PO PRN ×2 (09:22→16:48)
[2018-04-26] MEDS: Gabapentin 300 MG CAP PO SCH (09:23)
[2018-04-26] MEDS: traMADol HCl 50 MG TAB PO PRN ×2 (09:32→16:49)
[2018-04-26] MEDS: Mycophenolate 250 MG CAP PO SCH ×2 (09:32→20:31)
[2018-04-26] MEDS: Vancomycin HCl 1.75 GM in Sodium Chloride 0.9% 500 ML IVPB SCH (13:46)
[2018-04-26] MEDS ORDERED: Enoxaparin Sodium 40 MG/0.4 ML SYRINGE SC SCH (21:00)
[2018-04-26] MEDS ORDERED: Cetirizine HCl 10 MG TAB PO SCH (21:00)
[2018-04-26] MEDS ORDERED: Amitriptyline HCl 10 MG TAB PO SCH (21:00)
[2018-04-26] MEDS ORDERED: Gabapentin 300 MG CAP PO SCH (21:00)
[2018-04-26 23:37] LABS: Vancomycin, Trough 34.5 ug/mL
[2018-04-27] MEDS: HYDROcodone/Acetaminophen 10/325 mg Tablet PO PRN ×2 (03:06→08:48)
[2018-04-27] MEDS: traMADol HCl 50 MG TAB PO PRN (03:10)
[2018-04-27] MEDS: Ondansetron ODT 8 MG TAB PO PRN ×2 (03:15→08:42)
--- NOTE | 2018-04-27 05:31 | PDOC.FM ---
- Subjective Subjective: Patient is doing well although somewhat drowsy, reporting poor sleep overnight due to pain. Since receiving his home velasquez is feeling better and wants to sleep. present reports baseline mental state. Reports continued generalized weakness but improved. N/V is continued but denies urination difficulty, constipation/diarrhea, cough, fever/chills, SOB, and chest pain. No acute events overnight. - Objective MAR Reviewed: Yes Vital Signs & Weight: Vital Signs (12 hours) Temp Pulse Resp BP Pulse Ox 04/26/18 21:00 92 L 04/26/18 20:00 98.5 F 89 20 161/91 H 92 L Weight Admit Weight 121.56 kg Weight 121.56 kg I&O: 04/25/18 04/26/18 04/27/18 06:59 06:59 06:59 Intake Total 2240 Output Total 200 Balance 2039 Result Diagrams: 04/26/18 04:26 04/26/18 04:26 Phys Exam - Physical Examination Constitutional: NAD HEENT: moist MMs Respiratory: no wheezing, no rales, clear to auscultation bilateral Cardiovascular: RRR, no significant murmur Gastrointestinal: non-tender, no distention, positive bowel sounds b/l 1+ LE edema Neurological: moves all 4 limbs Dx/Plan (1) SIRS (systemic inflammatory response syndrome) Code(s): R65.10 - SIRS OF NON-INFECTIOUS ORIGIN W/O ACUTE ORGAN DYSFUNCTION Status: Acute (2) Prostate cancer Code(s): C61 - MALIGNANT NEOPLASM OF PROSTATE Status: Acute (3) CKD (chronic kidney disease) stage 3, GFR 30-59 ml/min Status: Chronic (4) Hx of kidney transplant Status: Chronic (5) IDDM (insulin dependent diabetes mellitus) Code(s): E11.9 - TYPE 2 DIABETES MELLITUS WITHOUT COMPLICATIONS; Z79.4 - USP (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 OF INSULIN Status: Chronic (6) JUDI on CPAP Code(s): G47.33 - OBSTRUCTIVE SLEEP APNEA (ADULT) (PEDIATRIC) Status: Chronic - Plan Plan: SIRS - fever and pulse of 90s in ED, now resolved - blood cultures and urine cultures NGTD - currently on broad spec abx, Vanc and Cefepime, discontinue abx with blood cx negative x48h - No source of infection identified, Prostate Cancer with Metastasis - consult onc - current treatment includes radiation therapy that was started last week Hypertension - slightly elevated. - resume home amlodipine CKD, s/p renal transplant - will appropriately renal dose medications - resume home antirejection meds. - will touch base with transplant doctor History of metastatic prostate cancer. - s/p partial prostatectomy; began radiation recently. - takes [place] at home for back pain IDDM: - Continue home meds, currently BS at goal HLD: - continue home meds HTN: Continue amlodipine and bumex JUDI on CPAP: - continue CPAP use Acute encephalopathy, resolved - differentials include infection, toxin, metabolic, organic brain disease, etc. - CT head negative. - UDS positive for opiods and TCA's which he is prescribed - possibly related to infection, dehydration, or metastatic disease. VTE Ppx: heparin Code status: Full IVF: LR at 120 Dispo: Likely d/c after 48 hours if cultures negative.
[2018-04-27 07:16] VITALS: BP 138/64; TEMP 99.2
[2018-04-27] MEDS: Calcitriol 0.25 MCG CAP PO SCH (08:41)
[2018-04-27] MEDS: Bumetanide 1 MG TAB PO SCH (08:41)
[2018-04-27] MEDS: Montelukast Sodium 10 mg Tablet PO SCH (08:41)
[2018-04-27] MEDS: Allopurinol 300 MG TAB PO SCH (08:42)
[2018-04-27] MEDS: Mycophenolate 250 MG CAP PO SCH (08:42)
[2018-04-27] MEDS: Atorvastatin Calcium 10 MG TAB PO SCH (08:43)
[2018-04-27] MEDS: predniSONE 5 MG TAB PO SCH (08:43)
[2018-04-27] MEDS: Gabapentin 300 MG CAP PO SCH (08:43)
[2018-04-27] MEDS: Docusate 100 MG CAP PO SCH (08:43)
[2018-04-27] MEDS: Tacrolimus 1 MG CAP PO SCH (08:43)
[2018-04-27] MEDS: Cefepime 2 GM in Sodium Chloride 0.9% 100 ML IVPB SCH (08:47)
[2018-04-27] MEDS: Abiraterone Acetate [Zytiga] 250 MG PO SCH (08:50)
[2018-04-27] MEDS ORDERED: Polyethylene Glycol 3350 17 GM Packet PO SCH (09:00)
[2018-04-27] MEDS ORDERED: Amlodipine 5 MG TAB PO SCH (09:15)
[2018-04-27 09:59] LABS: Hemoglobin A1c 7.4 % (4.0-6.0)
--- NOTE | 2018-04-27 12:10 | PRG ---
DATE OF SERVICE: 04/27/2018 Mr. Joseph looks and feels much better this morning. We are awaiting placement. His urine culture sven wed mixed skin shayna and his blood cultures have been negative. White count is 9400 with hemoglobin 9.5. He is afebrile with normal vital signs.
[2018-04-28] MEDS ORDERED: Amlodipine 5 MG TAB PO SCH (09:00)
== END 2018-04-27 13:14 | disposition home or self-care (01) | DRG 71 ==
LOC: ERS 09:38 → T4-A 13:46
PROVIDERS: ADMIT Student in an Organized Health Care Education/Training Program; ATTEND Student in an Organized Health Care Education/Training Program
DX: G93.40 Encephalopathy, unspecified (principal); Z94.0 Kidney transplant status; R65.10 Systemic inflammatory response syndrome (SIRS) of non-infectious origin without acute organ dysfunction; C79.51 Secondary malignant neoplasm of bone; Z79.82 Long term (current) use of aspirin; J44.9 Chronic obstructive pulmonary disease, unspecified; M19.90 Unspecified osteoarthritis, unspecified site; Z90.49 Acquired absence of other specified parts of digestive tract; K21.9 Gastro-esophageal reflux disease without esophagitis; E03.9 Hypothyroidism, unspecified; G47.33 Obstructive sleep apnea (adult) (pediatric); C61 Malignant neoplasm of prostate; F01.50 Vascular dementia, unspecified severity, without behavioral disturbance, psychotic disturbance, mood disturbance, and anxiety; I12.9 Hypertensive chronic kidney disease with stage 1 through stage 4 chronic kidney disease, or unspecified chronic kidney disease; E11.22 Type 2 diabetes mellitus with diabetic chronic kidney disease; N18.3 Chronic kidney disease, stage 3 (moderate)
CPT/HCPCS: 36415; 36416; 70450; 71045; 77336; 77412; 80053; 80202; 80306; 81003; 83036; 83605; 84145; 85025; 87040; 87086; 87804; 93005; 96360; 96361; 96365; 96366; 96375; J0692; J0696; J1650; J3370; J7050; J7507; J7517

== ENCOUNTER 2018-05-17 15:55 | Inpatient (IN) | payer MEDICARE ==
[~2018-05-17 15:55] MED LIST changes: -Gadobenate Dimeglumine 529 MG/1 ML (20ML VIAL) ONE; +Iopamidol 370 76% 100 ML VIAL ONE
--- NOTE | 2018-05-17 16:30 | RAD ---
FRONTAL VIEW CHEST: Comparison: 04-25-18 Indication: Altered mental status. FINDINGS: Stable enlargement of the cardiomediastinal silhouette. There is interstitial prominence of each lung and prominence of the pulmonary vasculature. IMPRESSION: Findings indicative of fluid overload related to CHF. Correlate clinically and if necessary, imaging follow up may be obtained. POS: [facility]
--- NOTE | 2018-05-17 16:42 | RAD ---
LEFT FOREARM: History: Altered mental status. Fall. Comparison: None. FINDINGS: The distal forearm appears to be intact. There is poor evaluation of the elbow. There is no radiopaque foreign object. IMPRESSION: Intact distal forearm. For evaluation of the elbow, dedicated elbow radiographs were would be recomme nded. POS: [facility]
[2018-05-17] MEDS ORDERED: Sodium Chloride 0.9% 100 ML ONE (16:44)
[2018-05-17] MEDS ORDERED: cefTRIAXone\\ROCEPHIN 2 GM VIAL ONE (16:44)
--- NOTE | 2018-05-17 16:44 | RAD ---
RIGHT HAND THREE VIEWS: History: Patient fell approximately 3-4 days ago. Now with hand pain. FINDINGS: There are no signs of any acute fracture or dislocation. There is bony fusion which is developmental across the lunotriquetral joint. IMPRESSION: No evidence of fracture. POS: [facility]
--- NOTE | 2018-05-17 16:45 | RAD ---
RIGHT WRIST THREE VIEWS: History: Wrist pain status post fall. 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 There are no signs of fracture or di slocation. If trauma is suspected to the scaphoid, a follow up in approximately 7-10 days would be re commended to exclude occult fracture. IMPRESSION: No evidence of fracture. POS: [facility]
[2018-05-17 16:50] LABS: #Eosinphils 0.3 thou/uL (0.0-0.7); #Lymphocytes 2.8 thou/uL (1.20-3.40); #Monocytes 0.8 thou/uL (0.11-0.59); %Basophils 0.4 % (0.0-1.0); %Eosinophils 3.7 % (0.0-10.0); %Lymphocytes 31.2 % (21.0-51.0); %Neutrophils 55.7 % (42.0-75.0); Mean Corpuscular HGB CONC 31.6 g/dL (32.0-36.0); Mean Corpuscular Hemoglobin 28.8 pg (27.0-31.0); Mean Corpuscular Volume 91.2 fL (78.0-98.0); Platelet Count 230 thou/uL (130-400); RBC Distribution Width 17.6 % (11.5-14.5); Red Blood Cell (RBC) Count 3.46 mill/uL (4.70-6.10); White Blood Cell (WBC) Count 8.9 thou/uL (4.8-10.8)
--- NOTE | 2018-05-17 17:03 | CT ---
CT BRAIN WITHOUT CONTRAST: Date: 05/17/18 HISTORY: Altered mental status. FINDINGS: Comparison made with exam of 04/25/18. No evidence of acute infarct, hemorrhage, midline shift, or abnormal extra-axial fluid collections ar e seen. 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 The ventricular size is sta ble and the basilar cisterns are patent. The bony calvarium is intact. The visualized paranasal sinus es and mastoid air cells are well aerated. IMPRESSION: No CT evidence of acute intracranial process. POS: [facility]
[2018-05-17 17:13] LABS: ALT (SGPT) Less than 7 U/L (8-55); AST (SGOT) 15 U/L (5-34); Albumin 3.1 g/dL (3.4-4.8); Alkaline Phosphatase 214 U/L (40-150); Anion Gap 13 mmol/L (10-20); BUN (Urea Nitrogen) 31 mg/dL (8.4-25.7); Bilirubin, Total 0.9 mg/dL (0.2-1.2); CK (CPK) 72 U/L (30-200); Calc. Creatinine Clearance 0 mL/min (70-130); Calcium 8.6 mg/dL (7.8-10.44); Carbon Dioxide 20 mmol/L (23-31); Chloride 103 mmol/L (98-107); Estimated GFR-MDRD 44; Glucose 202 mg/dL (80-115); Lipase 6 U/L (8-78); Potassium 4.9 mmol/L (3.5-5.1); Protein, Total 6.1 g/dL (5.8-8.1); Sodium 131 mmol/L (136-145)
[2018-05-17 17:17] LABS: CKMB 0.2 ng/mL (0-6.6); Troponin I Less than 0.010 ng/mL (< 0.028)
[2018-05-17 17:31] LABS: Bilirubin Small (Negative); Blood, Urine Negative (Negative); Clarity CLOUDY (Clear); Glucose, Urine (Dipstick) Negative (Negative); Leukocyte Negative (Negative); Nitrite Negative (Negative); Protein, Urine (Dipstick) Negative (Neg-Trace); Specific Gravity, Urine 1.024 (1.002-1.036); Urobilinogen 0.2 mg/dL (0.2-1.0)
[2018-05-17 18:30] LABS: Actual Bicarbonate (HCO3a) 20.3 mEq/L (22-28); Analyzer IN Cardio ER; Base Excess (BEa) -3.3 mEq/L (-2.0 to +3.0); CO2 Tension 31.7 mmHg (35.0-45.0); Calcium, Ionized 1.13 mmol/L (1.12-1.30); Carboxyhemoglobin (COHb) 0.3 gm% (0.0-3.0); Hemoglobin (Hb) 10.7 g/dL (14.0-18.0); Potassium - ABG Lab 4.42 mmol/L (3.70-5.30); pH, Arterial 7.43 (7.35-7.45)
[2018-05-17 18:33] LABS: O2 Tension (PaO2) 43.8 mmHg (> 80.0)
[2018-05-17 18:34] LABS: ALV-art Gradient 66.305 (0-20)
--- NOTE | 2018-05-17 19:50 | CT ---
CT ANGIOGRAM CHEST: 05/17/2018 HISTORY: Confusion. Lethargy. Recent fall. Assess for pulmonary embolism. COMPARISON: None. TECHNIQUE: Axial CT imaging at 2.5 mm intervals through the chest with IV contrast. Coronal and oblique sagitta l 3D reformatted imaging obtained. FINDINGS: Small sebaceous cyst noted posteriorly, in the upper left chest, on axial image 47. The axillary, me diastinal, and hilar regions demonstrate no evidence for lymphadenopathy. The imaged upper abdomen d emonstrates cholecystectomy clips. No evidence for aneurysm or dissection of the thoracic aorta. There is extensive atherosclerotic janna cification of the coronary arterial vasculature. No significant pleural, pericardial, or mediastinal fluid. No evidence for a central pulmonary arterial embolism. Mild motion artifact limits detailed assessme nt of the distal pulmonary arteries within the bilateral lower lobes. No pneumothorax on either side . Mild linear density in the lingula suggests scar and/or volume loss. No endobronchial lesion is evident. Review of the osseous structures demonstrates extensive abnormal increased density involving all osseous structures, which suggests osseous metastatic disease. Scat tered superimposed lytic areas are seen within multiple thoracic vertebral bodies, including T7, T9, and T12. IMPRESSION: 1. No evidence for pulmonary embolism. 2. Extensive coronary arterial calcification. 3. Extensive abnormal sclerosis of the osseous structures with scattered areas of lytic change, susp icious for osseous metastatic disease. POS: [facility]
--- NOTE | 2018-05-17 20:19 | PDOC.FPRHP ---
- History of Present Illness Chief Complaint: AMS History of Present Illness: This is a 68 yo AA M here for AMS per the . PMH significant for metastatic prostate cancer to the spine. The history for this patient was obtained mainly from the who is present in the room as patient was not fully cooperative. The reports that the patient was normal mental status at 0500 this AM and by 1000 had become confused and lethargic. He became more confused and lethargic throughout the day which is why she decided to call EMS. Patient was supposed to see PCP Dr. Christina in clinic today but states he was too altered to get him to the clinic. The spouse also reports that the patient fell 3-4 days ago and has been complaining of right wrist pain. Per the , the patient has not had fever, chills, NVD, SOB, chest or abdominal pain. Of note patient was here 2 weeks ago for a similar story and fever of unknown origin. was consulted at the time and stated that fever could be due to patients metastatic dz. ED Course: 1L NS, 500ml IV LR, 2g rocephin, 1900mg vanc, ofirmev 1000mg IV - Allergies/Adverse Reactions Allergies Allergy/AdvReac Type Severity Reaction Status Date / Time Latex, Natural Rubber Allergy Verified 04/25/18 15:08 morphine Allergy Verified 10/14/16 18:51 NSAIDS (Non-Steroidal Allergy Verified 04/25/18 15:08 Anti-Inflamma Penicillins Allergy Severe Verified 10/14/16 18:51 Hives povidone-iodine Allergy Rash Verified 10/14/16 18:51 [From Betadine] shellfish derived Allergy Verified 05/18/18 04:53 Tetracyclines Allergy Verified 10/14/16 18:51 lisinopril AdvReac Mild COUGHING Verified 10/14/16 18:51 - Home Medications Medication Instructions Recorded Confirmed Type Amitriptyline HCl [Elavil] 20 mg PO HS 02/18/15 05/18/18 History Aspirin [Aspirin EC] 325 mg PO DAILY 02/18/15 05/18/18 History Atorvastatin Calcium [Lipitor] 10 mg PO DAILY 02/18/15 05/18/18 History Calcitriol 0.25 mcg PO DAILY 02/18/15 05/18/18 History Cetirizine HCl [Zyrtec] 10 mg PO DAILY 02/18/15 05/18/18 History Esomeprazole Magnesium [NexIUM] 40 mg PO QPM 02/18/15 05/18/18 History Metoprolol Succinate [Toprol XL] 1 tab PO BID 02/18/15 05/18/18 History Mycophenolate Mofetil 500 mg PO BID 02/18/15 05/18/18 History Tacrolimus 1 mg PO BID 02/18/15 05/18/18 History amLODIPine Besylate [Norvasc] 2.5 mg PO DAILY 02/18/15 05/18/18 History predniSONE 5 mg PO QAM- 02/18/15 05/18/18 History Allopurinol 3 tab PO DAILY 05/09/15 05/18/18 History Bumetanide [Bumex] 1 tab PO DAILY 10/14/16 05/18/18 History Gabapentin 0.5 tab PO QAM 10/14/16 05/18/18 History Montelukast Sodium [Singulair] 10 mg PO QAM 10/14/16 05/18/18 History tiZANidine HCl [Tizanidine HCl] 1 tab PO TID PRN 10/14/16 05/18/18 History Abiraterone Acetate [Zytiga] 1,000 mg PO DAILY 04/25/18 05/18/18 History Colchicine [Colcrys] 0.6 mg PO BID PRN 04/25/18 05/18/18 History Docusate [Colace] 100 mg PO BID 04/25/18 05/18/18 History Gabapentin 900 mg PO QPM 04/25/18 05/18/18 History HYDROcodone/Acetaminophen [[place] 1 each PO Q6H PRN 04/25/18 05/18/18 History 10-325 Tablet] traMADol HCl [Tramadol HCl] 50 mg PO Q8H PRN 04/25/18 05/18/18 History Insulin Glargine,Hum.Rec.Anlog 52 units SQ QAM 05/18/18 05/18/18 History [Lantus] Ondansetron HCl [Zofran] 8 mg PO Q8H PRN 05/18/18 05/18/18 History Polyethylene Glycol 3350 [Miralax] 17 gm PO DAILY PRN 05/18/18 05/18/18 History - History PMHx: prostate cancer with mets to spine, gout, CKD stage3, DMII, diverticulitis PSHx: kidney transplant, abdominal and inguinal hernia repairs, cholecystectomy FHx: mother: DM, heart dz Social: denies tobacco drug or alcohol use - Review of Systems General: reports: fatigue. denies: fever/chills, weight/appetite/sleep changes , night sweats Respiratory: denies: cough, congestion, shortness of breath, exercise intolerance Cardiovascular: denies: chest pain, palpitation, edema Gastrointestinal: denies: nausea, vomiting, diarrhea, constipation Genitourinary: denies: dysuria Skin: denies: rashes, lesions Musculoskeletal: reports: pain (right wrist), tenderness Neurological: reports: weakness. denies: numbness, syncope, seizure - Vital signs BP: 129/72 HR: 118 RR: 24 Tmax: 102.9 Pox: 98% on RA Wt: 127kg - Physical Exam Constitutional: NAD, well developed -Constitutional: lethargic, non cooperative with questions HEENT: normocephalic and atraumatic, EOMI, conjunctiva clear, no scleral icterus , grossly normal vision, grossly normal hearing, MMM Neck: supple, FROM, trachea midline Chest: no-tender to palpation, no lesions Heart: RRR, normal S1/S2, no murmurs/rubs/gallops, pulses present -Heart: trace edema bilaterally Lungs: CTAB, no respiratory distress, good air movement, no wheezing Abdomen: soft, non-tender, bowel sounds present -Abdomen: morbidly obese body habitus Musculoskeletal: normal structure, normal tone -Musculoskeletal: limited ROM in right arm due to pain Neurological: no focal deficit -Neurological: Patient not cooperative w/ exam; per ED physician, normal neuro exam CN II-XII intact Skin: no rash/lesions, capillary refill <2 seconds -Psychiatric: ornery on exam FMR H&P: Results - Labs Result Diagrams: 05/18/18 04:41 05/18/18 04:41 Lab results: WBC 8.9 thou/uL (4.8-10.8) 05/17/18 16:36 Hgb 10.0 g/dL (14.0-18.0) L 05/17/18 16:36 Hct 31.5 % (42.0-52.0) L 05/17/18 16:36 MCV 91.2 fL (78.0-98.0) 05/17/18 16:36 Plt Count 230 thou/uL (130-400) 05/17/18 16:36 Neutrophils % 55.7 % (42.0-75.0) 05/17/18 16:36 ABG pH 7.43 (7.35-7.45) 05/17/18 18:25 ABG pCO2 31.7 mmHg (35.0-45.0) L 05/17/18 18:25 ABG pO2 43.8 mmHg (> 80.0) L* 05/17/18 18:25 Sodium 131 mmol/L (136-145) L 05/17/18 16:36 Potassium 4.9 mmol/L (3.5-5.1) 05/17/18 16:36 Chloride 103 mmol/L (98-107) 05/17/18 16:36 Carbon Dioxide 20 mmol/L (23-31) L 05/17/18 16:36 BUN 31 mg/dL (8.4-25.7) H 05/17/18 16:36 Creatinine 1.87 mg/dL (0.6-1.3) H 05/17/18 16:36 Glucose 202 mg/dL (80-115) H 05/17/18 16:36 Lactic Acid 1.5 mmol/L (0.5-2.2) 05/17/18 16:36 Calcium 8.6 mg/dL (7.8-10.44) 05/17/18 16:36 Total Bilirubin 0.9 mg/dL (0.2-1.2) 05/17/18 16:36 AST 15 U/L (5-34) 05/17/18 16:36 ALT Less than 7 U/L (8-55) L 05/17/18 16:36 Alkaline Phosphatase 214 U/L (40-150) H 05/17/18 16:36 Ammonia 18 umol/L (18-72) 05/17/18 16:36 Creatine Kinase 72 U/L (30-200) 05/17/18 16:36 CK-MB (CK-2) 0.2 ng/mL (0-6.6) 05/17/18 16:36 B-Natriuretic Peptide 52.8 pg/mL (0-100) 05/17/18 16:36 Serum Total Protein 6.1 g/dL (5.8-8.1) 05/17/18 16:36 Albumin 3.1 g/dL (3.4-4.8) L 05/17/18 16:36 Lipase 6 U/L (8-78) L 05/17/18 16:36 Urine Ketones Negative mg/dL (Negative) 05/17/18 17:08 Urine Blood Negative (Negative) 05/17/18 17:08 Urine Nitrite Negative (Negative) 05/17/18 17:08 Ur Leukocyte Esterase Negative (Negative) 05/17/18 17:08 - Radiology Interpretation Other Status: report reviewed by me (Xray Right Wrist, hand, forearm: no evidence of fracture) FMR H&P: A/P - Problem List (1) CAD (coronary artery disease) Current Visit: No Status: Acute Code(s): I25.10 - ATHSCL HEART DISEASE OF [place] CORONARY ARTERY W/O ANG PCTRS Qualifiers: Coronary Disease-Associated Artery/Lesion type: [place] artery Associated angina: without angina (2) Prostate cancer Current Visit: No Status: Acute Code(s): C61 - MALIGNANT NEOPLASM OF PROSTATE (3) SIRS (systemic inflammatory response syndrome) Current Visit: No Status: Acute Code(s): R65.10 - SIRS OF NON-INFECTIOUS ORIGIN W/O ACUTE ORGAN DYSFUNCTION (4) Hx of kidney transplant Current Visit: No Status: Chronic (5) Morbid obesity with BMI of 40.0-44.9, adult Current Visit: No Status: Chronic Code(s): E66.01 - MORBID (SEVERE) OBESITY DUE TO EXCESS CALORIES; Z68.41 - BODY MASS INDEX (BMI) 40.0-44.9, ADULT (6) Normocytic anemia Current Visit: No Status: Acute Code(s): D64.9 - ANEMIA, UNSPECIFIED (7) Hyperlipidemia Current Visit: No Status: Chronic Code(s): E78.5 - HYPERLIPIDEMIA, UNSPECIFIED (8) JUDI on CPAP Current Visit: No Status: Chronic Code(s): G47.33 - OBSTRUCTIVE SLEEP APNEA (ADULT) (PEDIATRIC) (9) Hyponatremia Current Visit: Yes Status: Acute Code(s): E87.1 - HYPO-OSMOLALITY AND HYPONATREMIA - Plan SIRS - Tachy 118, temp 102.9F - unknown source for fever at this time - UA neg - Vanc/rocephin given in ED - see below AMS for further work up AMS - Metabolic encephalopathy - unknown etiology - TIA vs discitis vs meningitis - Will obtain MRI and carotid dopplers - ESR and pro janna pending - AM lipid panel - Can consider Echo; previous echo in 2011 showed EF 65-70% - Can consider MRI of spine with contrast after resolution of NBA to look for epidural abscess vs osteomyelitis vs discitis - Pt refusing LP at this time to evaluate for meningitis - blood and urine cx pending - tacrolimus level pending - Resp viral panel pending - Fall precautions - Stroke team consulted, dysphagia screen Right wrist pain - XR neg for fracture - can consider MRI or CT if pain persists - Spica thumb splint placed Acute on Chronic Kidney Dz, s/p kidney transplant - GFR 44, base line GFR 60-82 - Stage 2 CKD - Cr 1.87, elevated from baseline - Will give IVF - recheck with AM labs Hyponatremia - Na 131, likely chronic as value at baseline from previous admissions - Will monitor w/ AM labs DM - aware, restart home meds, pt on insulin - mild SS, ACHS accuchecks Hx of Prostate cancer w/ mets to spine - aware, restart home meds - last radiation tx last week - Dr. William to place port in Wed this week HLD - aware, will restart home meds Hx of Gout - aware, will restart home meds JUDI on CPAP - aware, will continue CPAP here DISPO: admit to stroke, obs CODE: FULL VTE: heparin Case discussed with Dr. Garcia FMR H&P: Upper Level - Pertinent history Osbaldo Joseph is a 68 year old male with a history of metastatic prostate cancer currently undergoing radiation, and history of renal transplant on immunosuppressants who presents to the ED with lethargy, confusion, dysarthria since 0500 this morning. In discussing case with COURTNEYD, on initial presentation to ED, pt was arousable only to sternal rub. Over the course of several hours and after receiving antibiotics his mentation improved. He is currently at baseline per pt's who is at the bedside. Of note, pt was hospitalized on 04/25 with similar presentation. He was placed on broad-spectrum antibiotics. Infectious workup including blood and urine cultures and influenza testing were negative. He was discharged after 48 hours. - Pertinent findings Vitals: BP: 129/70 P: 115 RR: 24 Tmax: 102.9 (rectal) O2: 97% on RA Physical Exam: General: alert and oriented to person, place, and time. In no distress. Heart: mildy tachycardic, regular rhythm, no murmurs, rubs, or gallops. Lungs: clear to auscultation. Neuro: CN II-XII intact grossly. Extremities: tendernesss to palpation over anatomical snuff box and base of thumb. No swelling. CT head: negative for acute intracranial pathology - Plan Date/Time: 05/17/182015 I, Mary Reyna, have evaluated this patient and agree with findings/plan as outlined by multicultural internship resident. Pertinent changes/additions are listed here. Sirs without source - with fever and tachycardia. - No white count. UA wnl. No obvious source of infection on exam. - other sources of occult infections including meninigitis, vertebral osteomyelitis/discitis considered. - Vanc/Rocephin given in ED - Procal, ESR, CRP pending. Blood and urine cultures - continue broad spectrum antibiotics. - Pt declining LP at this time. Metabolic encephalopathy - differentials include infection, CVA/TIA, intoxication, organic brain disease - will obtain MRI brain in AM Right wrist pain, s/p fall - imaging negative for fracture. - thumb spica splint being placed. - pt will likely need repeat imaging in 1-2 weeks. Metastatic prostate cancer - currently undergoing radiation. - managed by Onc/Rad onc History or renal transplant - resume antirejection meds. Diabetes Mellitus - resume home meds - AC/HS accuchecks. Attending Addendum - Attending Addendum Date/Time: 05/18/18 1306 I personally evaluated the patient and discussed the management with Dr. Reyna. I agree with and repeated the History, Examination, Assessment and Plan documented above with any addition or exceptions noted below. Patient with acute encephalopathy of undetermined source. Had a fall over several days ago and was c/o some neck pain and head pain afterward, but did not complain of headache with his fever. Concerning his neck pain the family says this has been going on for years and occasionally flares. The patient rouses to voice and answers questions with intermittent lucidity. He denies headache to me. He is tachycardic, without murmur, his lungs are clear, a left SC CVC is in place. His abd is soft and nontender. His lower extremities are not edematous. I have discussed meningitis/encephalitis extensively with the family. The patient continues to decline and the does as well. We discussed that the diagnostic yield may be lower now that we were many hours post antibiotics, but I would advise pursuing it if his sensorium does not clear or an etiology is not found. On CT he has no mass effect. MRI to eval further. CT neck d/t neck pain, which could be meningismus as discussed with family but they feel is due to his chronic neck pain. He is not rigid. O/B are negative. RVP. Continue broad spectrum antibiotics. Monitor I/O's in light of NBA. Tacrolimus level and I would consider holding his next dose of immunosuppressive agents.
[2018-05-17 20:25] LABS: Troponin I 0.013 ng/mL (< 0.028)
--- NOTE | 2018-05-17 21:30 | RAD ---
PORTABLE SUPINE FRONTAL CHEST RADIOGRAPH: 05/17/2018 8:42 p.m. HISTORY: Central line placement. COMPARISON: 05/17/2018 at 4:13 p.m. FINDINGS: Supine imaging is provided, limiting assessment for pneumothorax and pleural fluid. A left-sided vas cular catheter is present, with the distal tip overlying the expected location of the superior vena c anuj. No focal consolidation. Heart and mediastinal contours are stable. IMPRESSION: Vascular catheter as above. POS: [facility]
[2018-05-17] MEDS ORDERED: Fentanyl 100 MCG/2 ML VIAL ONE (21:59)
[2018-05-17 23:26] LABS: Troponin I 0.014 ng/mL (< 0.028)
[2018-05-18] MEDS ORDERED: Cefepime 2 GM in Sodium Chloride 0.9% 100 ML IVPB SCH (00:15)
[2018-05-18] MEDS ORDERED: Dextrose 50% Abboject 50 ML SYRINGE SLOW IVP PRN (01:39)
[2018-05-18] MEDS ORDERED: Dextrose 5% in Water 1,000 ML IV PRN (01:39)
[2018-05-18] MEDS ORDERED: Ondansetron PF 4 MG/2 ML Vial IVP PRN (01:39)
[2018-05-18] MEDS ORDERED: Heparin 5,000 UNITS/ML VIAL SC SCH (02:00)
[2018-05-18] MEDS ORDERED: Lactated Ringer's 1,000 ML IV SCH (04:30)
[2018-05-18 05:05] LABS: #Eosinphils 0.3 thou/uL (0.0-0.7); #Lymphocytes 1.9 thou/uL (1.20-3.40); #Monocytes 0.7 thou/uL (0.11-0.59); #Neutrophils 5.3 thou/uL (1.40-6.50); %Basophils 0.3 % (0.0-1.0); %Eosinophils 3.3 % (0.0-10.0); %Lymphocytes 22.8 % (21.0-51.0); %Monocytes 8.4 % (0.0-10.0); %Neutrophils 65.2 % (42.0-75.0); Hemoglobin 9.3 g/dL (14.0-18.0); Mean Corpuscular HGB CONC 32.3 g/dL (32.0-36.0); Mean Corpuscular Hemoglobin 29.4 pg (27.0-31.0); Mean Corpuscular Volume 90.8 fL (78.0-98.0); Mean Platelet Volume 7.1 fL (7.4-10.4); Platelet Count 219 thou/uL (130-400); RBC Distribution Width 17.6 % (11.5-14.5); Red Blood Cell (RBC) Count 3.17 mill/uL (4.70-6.10); White Blood Cell (WBC) Count 8.2 thou/uL (4.8-10.8)
[2018-05-18 05:20] LABS: Anion Gap 14 mmol/L (10-20); BUN (Urea Nitrogen) 29 mg/dL (8.4-25.7); Calc. Creatinine Clearance 72 mL/min (70-130); Calcium 8.9 mg/dL (7.8-10.44); Carbon Dioxide 19 mmol/L (23-31); Cardiac Risk 4.8 (Less than 4.5); Chloride 103 mmol/L (98-107); Cholesterol 87 mg/dl (< 200 Desired); Estimated GFR-MDRD 52; Glucose 263 mg/dL (80-115); HDL Cholesterol 18 mg/dL (>60 Neg Risk); LDL Cholesterol, Calculated 51 mg/dL; Potassium 5.6 mmol/L (3.5-5.1); Sodium 130 mmol/L (136-145); Triglycerides 90 mg/dL (Less than 150)
[2018-05-18] MEDS ORDERED: tiZANidine HCl 4 MG TAB PO PRN (06:05)
[2018-05-18] MEDS ORDERED: Polyethylene Glycol 3350 17 GM Packet PO PRN (06:05)
[2018-05-18] MEDS ORDERED: Colchicine 0.6 MG TAB PO PRN (06:05)
[2018-05-18] MEDS: HumaLOG 300 UNITS/3 ML VIAL SC PRN ×3 (06:31→19:15)
[2018-05-18] MEDS ORDERED: Bumetanide 1 MG TAB PO SCH (07:30)
--- NOTE | 2018-05-18 10:03 | ULT ---
CAROTID ULTRASOUND WITH FENG SCALE AND DOPPLER DUPLEX COLOR FLOW IMAGING SPECTRAL ANALYSIS PERFORMED: CLINICAL INDICATION: TIA FINDINGS: PEAK SYSTOLIC VELOCITY (CM/S): Right CCA and ICA: Not obtainable due to patient inability to tolerate positioning Left CCA: 163 Left ICA: 76 Vertebral arteries are not reliable visualized. IMPRESSION: Markedly limited exam. As clinically necessary, consider CTA as follow up. POS: [facility]
[2018-05-18] MEDS: Cefepime 2 GM in Sodium Chloride 0.9% 100 ML IVPB SCH ×2 (10:15→17:39)
[2018-05-18] MEDS: Heparin 5,000 UNITS/ML VIAL SC SCH ×3 (10:16→21:16)
[2018-05-18] MEDS: Insulin Glargine 52 UNITS in Pre-Filled Syringe 1 EACH SC SCH (10:16)
[2018-05-18] MEDS: Montelukast Sodium 10 mg Tablet PO SCH (10:17)
[2018-05-18] MEDS: Calcitriol 0.25 MCG CAP PO SCH (10:17)
[2018-05-18] MEDS: Tacrolimus 0.5 MG CAP PO SCH ×2 (10:17→22:40)
[2018-05-18] MEDS: Gabapentin 300 MG CAP PO SCH ×2 (10:18→21:15)
[2018-05-18] MEDS: Bumetanide 1 MG TAB PO SCH ×2 (10:18→22:40)
[2018-05-18] MEDS: Aspirin 325 mg Enteric Coated Tablet PO SCH (10:18)
[2018-05-18] MEDS: Mycophenolate 250 MG CAP PO SCH ×2 (10:19→21:15)
[2018-05-18] MEDS: predniSONE 5 MG TAB PO SCH (10:19)
[2018-05-18] MEDS: Loratadine 10 MG TAB PO SCH (10:20)
[2018-05-18] MEDS: Amlodipine 5 MG TAB PO SCH (10:20)
[2018-05-18] MEDS: Allopurinol 300 MG TAB PO SCH (10:21)
[2018-05-18] MEDS: Atorvastatin Calcium 10 MG TAB PO SCH (10:21)
--- NOTE | 2018-05-18 11:02 | PDOC.FM ---
- Subjective Subjective: Patient alert this morning but not communicating. He makes sounds, but cannot formulate sentences. He appears to be in pain when moving extremities. reports that he is not at baseline. He has been refusing to move his neck to the left. - Objective MAR Reviewed: Yes Vital Signs & Weight: Vital Signs (12 hours) Temp Pulse Resp BP BP Pulse Ox 05/18/18 10:20 123 H 132/76 05/18/18 07:55 98.7 F 123 H 22 H 131/71 94 L 05/18/18 03:00 96 05/18/18 02:20 98.4 F 114 H 20 125/82 96 Weight Weight 117.565 kg I&O: 05/17/18 05/18/18 05/19/18 06:59 06:59 06:59 Intake Total 162.5 Balance 162.5 Result Diagrams: 05/18/18 04:41 05/18/18 04:41 EKG Reviewed by me: Yes Radiology Reviewed by me: Yes <Cintia Jackson - Last Filed: 05/18/18 11:00> - Objective Vital Signs & Weight: Vital Signs (12 hours) Temp Pulse Pulse Pulse Resp BP BP 05/18/18 11:43 100.6 F H 126 H 20 05/18/18 10:20 123 H 132/76 05/18/18 09:25 140 H 125 H 137/94 H 05/18/18 07:55 98.7 F 123 H 22 H 05/18/18 03:00 05/18/18 02:20 98.4 F 114 H 20 BP BP Pulse Ox 05/18/18 11:43 133/69 95 05/18/18 10:20 05/18/18 09:25 132/76 05/18/18 07:55 131/71 94 L 05/18/18 03:00 96 05/18/18 02:20 125/82 96 Weight Admit Weight 117.571 kg Weight 117.565 kg I&O: 05/17/18 05/18/18 05/19/18 06:59 06:59 06:59 Intake Total 162.5 Balance 162.5 Result Diagrams: 05/18/18 04:41 05/18/18 04:41 <Saman Velazquez - Last Filed: 05/18/18 13:36> Phys Exam - Physical Examination Not communicating. Appears to be in mild distress. HEENT: moist MMs Mild JVD Respiratory: clear to auscultation bilateral Cardiovascular: no significant murmur Tachycardic Gastrointestinal: soft, no distention Musculoskeletal: no edema Unable to evaluate fully d/t mental status Deviation from normal: A&O x0, occasionally follows commands Skin: cap refill <2 seconds <Cintia Jackson - Last Filed: 05/18/18 11:00> Dx/Plan (1) SIRS (systemic inflammatory response syndrome) Code(s): R65.10 - SIRS OF NON-INFECTIOUS ORIGIN W/O ACUTE ORGAN DYSFUNCTION Status: Acute (2) Hyponatremia Code(s): E87.1 - HYPO-OSMOLALITY AND HYPONATREMIA Status: Acute (3) CAD (coronary artery disease) Code(s): I25.10 - ATHSCL HEART DISEASE OF [place] CORONARY ARTERY W/O ANG PCTRS Status: Chronic Qualifiers: Coronary Disease-Associated Artery/Lesion type: [place] artery Associated angina: without angina (4) COPD (chronic obstructive pulmonary disease) Status: Chronic Qualifiers: COPD type: COPD with acute exacerbation Qualified Code(s): J44.1 - Chronic obstructive pulmonary disease with (acute) exacerbation (5) GERD (gastroesophageal reflux disease) Code(s): K21.9 - GASTRO-ESOPHAGEAL REFLUX DISEASE WITHOUT ESOPHAGITIS Status: Chronic (6) Hypothyroid Code(s): E03.9 - HYPOTHYROIDISM, UNSPECIFIED Status: Chronic (7) Normocytic anemia Code(s): D64.9 - ANEMIA, UNSPECIFIED Status: Chronic (8) Prostate cancer Code(s): C61 - MALIGNANT NEOPLASM OF PROSTATE Status: Chronic (9) CKD (chronic kidney disease) stage 3, GFR 30-59 ml/min Status: Chronic (10) Hx of kidney transplant Status: Chronic (11) Hyperlipidemia Code(s): E78.5 - HYPERLIPIDEMIA, UNSPECIFIED Status: Chronic (12) IDDM (insulin dependent diabetes mellitus) Code(s): E11.9 - TYPE 2 DIABETES MELLITUS WITHOUT COMPLICATIONS; Z79.4 - MANAGER SPEECH (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 OF INSULIN Status: Chronic (13) Morbid obesity with BMI of 40.0-44.9, adult Code(s): E66.01 - MORBID (SEVERE) OBESITY DUE TO EXCESS CALORIES; Z68.41 - BODY MASS INDEX (BMI) 40.0-44.9, ADULT Status: Chronic (14) JUDI on CPAP Code(s): G47.33 - OBSTRUCTIVE SLEEP APNEA (ADULT) (PEDIATRIC) Status: Chronic - Plan Plan: SIRS - Tachy 118, temp 102.9F, Tachypneic on admission - Patient still tachycardic - unknown source for fever at this time - UA neg; urine culture pending - Continue vanc and cefepime until blood cultures result - Blood cx NGTD - Uncertain source of infection, if present - TTE pending - Procalcitonin 0.58 Metabolic encephalopathy - unknown etiology - TIA vs infectious etiology - Carotid doppler study limited; patient unable to move next to left; MRI w/wo contrast of cervical spine pending - ESR elevated likely 2/2 metastatic prostate cancer - Lipid panel shows total cholesterol 87, LDL 51, and HDL 18 - Previous echo in 2011 showed EF 65-70%; Repeat TTE pending - Spoke to Dr. Willson. He states he finished radiation 2 weeks ago. Patient had decided to undergo chemotherapy with Dr. Coon. Uncertain if patient has undergone chemo. Will look into this. MRI of spine done at end of March which did not show anything concerning for infection at that time. Dr. Willson recommended possibly doing bone scan. Will touch base with Dr. Coon is patient has started chemotherapy. - Pt refused LP - Blood cultures NGTD, Urine culture pending - tacrolimus level pending - Resp viral panel pending - Fall precautions - Stroke team consulted, dysphagia screen pending - MRI brain pending Right wrist pain - XR neg for fracture - can consider MRI or CT if pain persists - Spica thumb splint placed Acute on Chronic Kidney Disease, s/p kidney transplant - GFR 44, baseline GFR 60-82 - Stage 2 CKD - Cr 1.87, elevated from baseline --> 1.6 this AM - Light IVF as patient had evidence of fluid overload on CXR Hyponatremia - Na 131, likely chronic as value at baseline from previous admissions DM - continue home medications - mild SS, ACHS accuchecks 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 Willson. Patient reportedly to undergo chemotherapy. Uncertain if he has started treatment. - Dr. William to place port in Wed this week HLD - continue home medications Hx of Gout - continue home medications JUDI on CPAP - aware, will continue CPAP here DISPO: admit to stroke, obs; due to nature of patient's symptoms, anticipate LOS >48 hours. Will consider transitioning to inpatient status. CODE: FULL VTE: heparin <Cintia Jackson - Last Filed: 05/18/18 11:00> Attending Addendum - Attending Addendum Date/Time: 05/18/18 7992 I personally evaluated the patient and discussed the management with Dr. Jackson. I agree with the History, Examination, Assessment and Plan documented above with any addition or exceptions noted below. We are empirically treating for infection. Source is being investigated. Work up for CVA also arranged. <Saman Velazquez - Last Filed: 05/18/18 13:36>
[2018-05-18] MEDS: Lactated Ringer's 1,000 ML IV SCH (11:47)
[2018-05-18] MEDS: Docusate 100 MG CAP PO SCH ×2 (11:47→21:16)
[2018-05-18] MEDS ORDERED: Fentanyl 100 MCG/2 ML VIAL SLOW IVP SCH (12:45)
[2018-05-18] MEDS ORDERED: traMADol HCl 50 MG TAB PO PRN (16:23)
--- NOTE | 2018-05-18 17:30 | MRI ---
MRI BRAIN NONCONTRAST: DATE: 05-18-18 HISTORY: 68-year-old male with altered mental status. CVA. COMPARISON: 04-23-2005 FINDINGS: There is a cluster of multiple small old lacunar infarctions in the right cerebellar hemisphere, unch anged since 2004. There is no restricted diffuse to indicate acute infarction. No obstructive hydroce phalus, mass effect, midline shift, or extraaxial fluid collection. No high grade chronic ischemic wh ite matter changes. No evidence of recent or remote intraaxial hemorrhage. No significant interval ch tanmay overall. IMPRESSION: 1. No acute intracranial findings. 2. A cluster of multiple small old lacunar infarctions in the right cerebellar hemisphere. 3. No major interval change since 04/23/2005. JORDON Bartlett POS: [facility]
[2018-05-18] MEDS ORDERED: Diltiazem 125 MG in Sodium Chloride 0.9% 100 ML IVPB SCH (17:45)
[2018-05-18] MEDS ORDERED: Vancomycin HCl 2.5 GM in Sodium Chloride 0.9% 500 ML IVPB SCH (19:00)
[2018-05-18 19:31] LABS: CKMB 0.7 ng/mL (0-6.6); Troponin I Less than 0.010 ng/mL (< 0.028)
--- NOTE | 2018-05-18 19:38 | MRI ---
MRI CERVICAL SPINE WITH AND WITHOUT CONTRAST: 05/18/18 INDICATION: Chronic neck pain. CVA. History of prostate cancer and metastases. FINDINGS: There is patient motion which limits the evaluation. There is a generalized low T1 narrow signal for which an infiltrative process cannot be excluded, particularly given the patient's history of prostat e malignancy. No intrinsic T2 intramedullary signal abnormality of significance is visualized. There is no pathologic intramedullary enhancement. No evidence of acute marrow edema or compression deformity. There is multilevel cervical spondylosis which is limited by the degree of patient motion although does result in multilevel mild to moderate central canal stenosis with associated areas of ventral cord effacement and bilateral mild to moderat e neural foraminal stenosis throughout the cervical spine, also limited by the degree of patient corrina on throughout the exam. The patient did decline completion of imaging which precluded acquisition of the full imaging exam, l imiting assessment. IMPRESSION: 1. Diffuse low T1 marrow signal, nonspecific. In light of the patient's history of metastatic pr ostate cancer, whole body bone scan may prove useful for more sensitive evaluation in this regard. 2. Limited exam by patient motion. No definite intrinsic cord signal abnormality or intramedulla ry enhancement. 3. Multilevel cervical spine degenerative change. POS: [facility]
[2018-05-18] MEDS ORDERED: Digoxin 0.5 MG/2 ML AMP SLOW IVP SCH ×2 (20:00→23:45)
--- NOTE | 2018-05-18 20:02 | PDOC.EVN ---
Event Note - Event Note Event Note: [facility] residents called to evaluate EKG with concern for ST elevation. Patient continued to be tachycardic this afternoon, dilt gtt not yet started, and family noted he seemed a little different therefore a STAT EKG was ordered which showed ST elevation in leads II, III and aVF. Patient also noted to be febrile. Patient not able to respond to questions or follow commands which is consistent with exam from earlier. BP 132/61 P 143 R20 SpO2 94% on RA T100.9 Initial troponin and CKMB negative Gen: awake, alert, makes good eye contact HEENT: atraumatic normocephalic CV: irregularly irregular rhythm RESP: coarse breath sounds ABD: soft, nontender, nondistended A/P: 68 yo M who presented with encephalopathy now with concern for inferior TX 1. ST elevation: Consistent on repeat EKG. Will trend troponins. Notified Dr. Contreras who recommends 0.5 mg of digoxin at this time and 0.25mg in 2-3 hours if needed for rate control. Will continue dilt gtt, now increased to 10. Last ate at 530 pm. 2. Encephalopathy: BCx pending, slightly different than earlier but no new focal deficits or facial droop. MRI pending. Continue vanc, cefepime. Will continue to monitor closely. <Joi Rahman - Last Filed: 05/19/18 06:44> Attending Addendum - Attending Addendum Date/Time: 05/19/18731 I personally evaluated the patient and discussed the management with Dr. Rahman on 05/18. I agree with and repeated the History, Examination, Assessment and Plan documented above with any addition or exceptions noted below. I discussed the case with Dr. Contreras. He prefers to hold off on cath d/t allergy and feels little benefit with cath. Will monitor. <Zaki Garcia - Last Filed: 05/19/18 07:32>
[2018-05-18] MEDS: Acetaminophen 325 MG TAB PO PRN (21:15)
[2018-05-18] MEDS: Amitriptyline HCl 10 MG TAB PO SCH (21:16)
[2018-05-19] MEDS: HumaLOG 300 UNITS/3 ML VIAL SC PRN ×5 (00:03→22:44)
[2018-05-19 00:20] LABS: CKMB 0.7 ng/mL (0-6.6); Troponin I Less than 0.010 ng/mL (< 0.028)
[2018-05-19] MEDS: Cefepime 2 GM in Sodium Chloride 0.9% 100 ML IVPB SCH ×3 (00:54→17:20)
[2018-05-19 01:02] LABS: Anion Gap 16 mmol/L (10-20); BUN (Urea Nitrogen) 31 mg/dL (8.4-25.7); Calc. Creatinine Clearance 70 mL/min (70-130); Calcium 8.4 mg/dL (7.8-10.44); Carbon Dioxide 15 mmol/L (23-31); Chloride 104 mmol/L (98-107); Estimated GFR-MDRD 50; Glucose 249 mg/dL (80-115); Potassium 5.1 mmol/L (3.5-5.1); Sodium 130 mmol/L (136-145)
[2018-05-19 02:50] LABS: #Lymphocytes 1.8 thou/uL (1.20-3.40); #Monocytes 0.7 thou/uL (0.11-0.59); #Neutrophils 5.9 thou/uL (1.40-6.50); %Basophils 0.5 % (0.0-1.0); %Eosinophils 0.5 % (0.0-10.0); %Lymphocytes 20.6 % (21.0-51.0); %Monocytes 8.6 % (0.0-10.0); %Neutrophils 69.7 % (42.0-75.0); Hemoglobin 8.7 g/dL (14.0-18.0); Mean Corpuscular HGB CONC 32.4 g/dL (32.0-36.0); Mean Corpuscular Hemoglobin 29.5 pg (27.0-31.0); Mean Corpuscular Volume 91.2 fL (78.0-98.0); Mean Platelet Volume 7.2 fL (7.4-10.4); Platelet Count 214 thou/uL (130-400); RBC Distribution Width 17.6 % (11.5-14.5); Red Blood Cell (RBC) Count 2.95 mill/uL (4.70-6.10); White Blood Cell (WBC) Count 8.5 thou/uL (4.8-10.8)
[2018-05-19] MEDS: Lactated Ringer's 1,000 ML IV SCH ×3 (03:01→20:40)
[2018-05-19 03:16] LABS: CKMB 0.8 ng/mL (0-6.6); Troponin I 0.014 ng/mL (< 0.028)
[2018-05-19 03:17] LABS: Anion Gap 16 mmol/L (10-20); BUN (Urea Nitrogen) 32 mg/dL (8.4-25.7); Calc. Creatinine Clearance 68 mL/min (70-130); Calcium 8.5 mg/dL (7.8-10.44); Carbon Dioxide 15 mmol/L (23-31); Chloride 106 mmol/L (98-107); Estimated GFR-MDRD 48; Glucose 269 mg/dL (80-115); Sodium 132 mmol/L (136-145)
--- NOTE | 2018-05-19 03:25 | PDOC.FM ---
- Subjective Subjective: Patient was initially doing well this AM. Several events occurred last night which were concerning. Patient suddenly started having tachycardia. It was difficult to assess whether the tachycardia was atrial flutter vs atrial tachycardia. EKG was performed which showed ST elevation in leads II, III, AVF. Patient asymptomatic at time. He was started on cardizem drip and digoxin. Pulse has since improved. Troponins were negative. Patient was alert and oriented this AM. Patient's states he was about back to baseline. He was requesting to get up and walk to the restroom I told him I did not feel comfortable letting him walk without assistance, so he asked if he could get up and move to the chair. He was conversational and praying with his family and friends. He spoke to me and thanked me for helping him to get better. PT came in to assess patient. They noted he was max assist. An hour or so after PT was completed, the team went back to evaluate patient and he was back in bed and not very responsive. He was awake and alert but not following commands or answering questions. That was a decline from when I had seen him earlier in the morning. - Objective MAR Reviewed: Yes Vital Signs & Weight: Vital Signs (12 hours) Temp Pulse Resp BP Pulse Ox 05/19/18 00:52 141 H 05/19/18 00:00 98.2 F 137 H 18 125/65 98 05/18/18 21:17 137 H 05/18/18 16:00 100.2 F H 143 H 24 H 131/60 91 L Weight Admit Weight 117.571 kg Weight 117.565 kg I&O: 05/17/18 05/18/18 05/19/18 06:59 06:59 06:59 Intake Total 162.5 Balance 162.5 Result Diagrams: 05/19/18 02:36 05/19/18 02:36 EKG Reviewed by me: Yes Radiology Reviewed by me: Yes <Cintia Jackson - Last Filed: 05/19/18 11:42> - Objective Vital Signs & Weight: Vital Signs (12 hours) Temp Pulse Pulse Pulse Resp BP BP 05/19/18 11:34 97.6 F 104 H 18 05/19/18 10:23 103 H 05/19/18 10:00 98 05/19/18 09:21 102 H 106 H 130/58 L 133/59 L 05/19/18 08:00 97.7 F 103 H 18 05/19/18 04:00 99 F 124 H 22 H BP Pulse Ox 05/19/18 11:34 131/63 95 05/19/18 10:23 05/19/18 10:00 05/19/18 09:21 05/19/18 08:00 123/61 98 05/19/18 04:00 121/80 98 Weight Admit Weight 117.571 kg Weight 116.619 kg I&O: 05/18/18 05/19/18 05/20/18 06:59 06:59 06:59 Intake Total 162.5 Balance 162.5 Result Diagrams: 05/19/18 02:36 05/19/18 02:36 <Saman Velazquez - Last Filed: 05/19/18 15:45> Phys Exam - Physical Examination Constitutional: NAD Alert and oriented on initial exam this AM. HEENT: moist MMs, sclera anicteric Neck: supple course rhonchi Cardiovascular: no significant murmur Tachycardic Gastrointestinal: soft mildly distended Musculoskeletal: no edema, pulses present Neurological: non-focal Deviation from normal: Alert and oriented on initial exam this AM Deviation from normal: Bilateral skin pigmentation changes on LE's <Cintia Jackson - Last Filed: 05/19/18 11:42> Dx/Plan (1) Acute respiratory failure with hypoxia Code(s): J96.01 - ACUTE RESPIRATORY FAILURE WITH HYPOXIA Status: Acute (2) SIRS (systemic inflammatory response syndrome) Code(s): R65.10 - SIRS OF NON-INFECTIOUS ORIGIN W/O ACUTE ORGAN DYSFUNCTION Status: Acute (3) Hyponatremia Code(s): E87.1 - HYPO-OSMOLALITY AND HYPONATREMIA Status: Acute (4) CAD (coronary artery disease) Code(s): I25.10 - ATHSCL HEART DISEASE OF [place] CORONARY ARTERY W/O ANG PCTRS Status: Chronic Qualifiers: Coronary Disease-Associated Artery/Lesion type: [place] artery Associated angina: without angina (5) COPD (chronic obstructive pulmonary disease) Status: Chronic Qualifiers: COPD type: COPD with acute exacerbation Qualified Code(s): J44.1 - Chronic obstructive pulmonary disease with (acute) exacerbation (6) GERD (gastroesophageal reflux disease) Code(s): K21.9 - GASTRO-ESOPHAGEAL REFLUX DISEASE WITHOUT ESOPHAGITIS Status: Chronic (7) Hypothyroid Code(s): E03.9 - HYPOTHYROIDISM, UNSPECIFIED Status: Chronic (8) Normocytic anemia Code(s): D64.9 - ANEMIA, UNSPECIFIED Status: Chronic (9) Prostate cancer Code(s): C61 - MALIGNANT NEOPLASM OF PROSTATE Status: Chronic (10) CKD (chronic kidney disease) stage 3, GFR 30-59 ml/min Status: Chronic (11) Hx of kidney transplant Status: Chronic (12) Hyperlipidemia Code(s): E78.5 - HYPERLIPIDEMIA, UNSPECIFIED Status: Chronic (13) IDDM (insulin dependent diabetes mellitus) Code(s): E11.9 - TYPE 2 DIABETES MELLITUS WITHOUT COMPLICATIONS; Z79.4 - SENIOR FIRE PROTECTION ENGINEER (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 OF INSULIN Status: Chronic (14) Morbid obesity with BMI of 40.0-44.9, adult Code(s): E66.01 - MORBID (SEVERE) OBESITY DUE TO EXCESS CALORIES; Z68.41 - BODY MASS INDEX (BMI) 40.0-44.9, ADULT Status: Chronic (15) JUDI on CPAP Code(s): G47.33 - OBSTRUCTIVE SLEEP APNEA (ADULT) (PEDIATRIC) Status: Chronic (16) Tachycardia Code(s): R00.0 - TACHYCARDIA, UNSPECIFIED Status: Acute - Plan Plan: SIRS, suspect underlying infection - Tachy 118, temp 102.9F, Tachypneic on admission. Patient has not fevered since yesterday - Differentials include discitis, osteomyelitis, epidural abscess, endocarditis - Patient had similar presentation 2 weeks ago. No source of infection was identified at that time. He was started on antibiotics, improved and was sent home. - UA neg; urine culture shows <5000 CFU's - Continue vanc and cefepime - Blood Cx NGTD - TTE pending - Procalcitonin 0.58, 1.69 (increased suspicion for infection) - Will consult Moustapha for further recommendations - Dr. Willson recommends bone scan; bone scan pending - Will repeat CXR and order KUB and abdominal ultrasound to further evaluate as pt is having some abdominal distention Metabolic encephalopathy - Unknown etiology; likely infectious as patient had no acute changes on CT or brain and MRI brain - Carotid doppler study limited; patient unable to move next to left; MRI w/wo contrast of cervical spine showed signal density likely related to mets. Bone scan was recommended - ESR elevated likely 2/2 metastatic prostate cancer - Lipid panel shows total cholesterol 87, LDL 51, and HDL 18 - Previous echo in 2011 showed EF 65-70%; Repeat TTE pending - Spoke to Dr. Willson. He states he finished radiation 2 weeks ago. Patient had decided to undergo chemotherapy with Dr. Coon. Patient is due to undergo chemo within the next week. He was supposed to have mediport placed by Dr. William this week. MRI of spine done at end of March which did not show anything concerning for infection at that time. Dr. Willson recommended possibly doing bone scan. - Pt refused LP on presentation - Blood cultures NGTD - Tacrolimus level pending - Resp viral panel negative - Fall precautions - Stroke team consulted, dysphagia screen passed - Will consult Dr. Gerard for further recommendations - Likely component of deliriumWil Tachycardia suscpisoius for atrial flutter vs. atrial tachycardia - EKG with ST elevations in II, III, AVF. - Cardiology consulted. Appreciate recs - EKG changes likely 2/2 tachycardia - Troponins negative, patient asymptomatic - No cardiac cath at this time per cards. - Continue cardizem drip with plans to titrate off of drip and transition to PO cardizem and digoxin. Acute hypoxic respiratory failure - ABG improved this AM - Now requiring 2-3 L O2 - CTA negative for PE - Repeat CXR this AM Right wrist pain - XR neg for fracture - can consider MRI or CT if pain persists - Spica thumb splint placed Acute on Chronic Kidney Disease, s/p kidney transplant - GFR 44, baseline GFR 60-82 - Stage 2 CKD - Cr 1.87, elevated from baseline --> 1.6 this AM - Light IVF as patient had evidence of fluid overload on CXR; TTE pending Hyponatremia - Na 132, likely chronic as value at baseline from previous admissions DM - continue home medications - mild SS, ACHS accuchecks - BG 269 this AM 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 Willson. Patient reportedly to undergo chemotherapy within the next week. - Dr. William to place port; port would have been placed today. Can consider consulting Nataliia while patient is here in hospital to have that done. HLD - continue home medications Hx of Gout - continue home medications JUDI on CPAP - aware, will continue CPAP here DISPO: admit to stroke. P CODE: FULL VTE: heparin Dispo: Guarded. Patient with improvement this AM and decline this afternoon. Seems to be waxing and waning. Appreciate recs from specialists. <Cintia Jackson - Last Filed: 05/19/18 11:42> Attending Addendum - Attending Addendum Date/Time: 05/19/18 4136 I personally evaluated the patient and discussed the management with Dr. Jackson. I agree with the History, Examination, Assessment and Plan documented above with any addition or exceptions noted below. Complicated picture. Appreciate input from our consultants. He mental status improved, then declined some this morning but over all better than yesterday. We are treating empirically for infection, but source is unclear. Oxygen support has been required. CXR ordered. Abdominal distention noted but it is soft and non-tedner. Xray and ultrasound ordered. We are avoiding contrast due to allergy. <Saman Velazquez - Last Filed: 05/19/18 15:45>
[2018-05-19 07:03] LABS: Troponin I 0.014 ng/mL (< 0.028)
[2018-05-19] MEDS ORDERED: Digoxin 0.5 MG/2 ML AMP SLOW IVP SCH (07:45)
[2018-05-19] MEDS ORDERED: Diltiazem 125 MG in Sodium Chloride 0.9% 100 ML IVPB SCH (07:48)
[2018-05-19 08:28] LABS: Actual Bicarbonate (HCO3a) 17.5 mEq/L (22-28); Base Excess (BEa) -5.8 mEq/L (-2.0 to +3.0); CO2 Tension 26.9 mmHg (35.0-45.0); Calcium, Ionized 1.09 mmol/L (1.12-1.30); Carboxyhemoglobin (COHb) 1.2 gm% (0.0-3.0); Hemoglobin (Hb) 9.3 g/dL (14.0-18.0); Potassium - ABG Lab 4.79 mmol/L (3.70-5.30); pH, Arterial 7.43 (7.35-7.45)
[2018-05-19 08:30] LABS: ALV-art Gradient 76.015 (0-20); Puncture Site RBA
[2018-05-19] MEDS: Heparin 5,000 UNITS/ML VIAL SC SCH ×3 (10:14→20:58)
[2018-05-19] MEDS: Ondansetron ODT 4 MG TAB PO PRN (10:15)
[2018-05-19] MEDS: Insulin Glargine 52 UNITS in Pre-Filled Syringe 1 EACH SC SCH (10:16)
[2018-05-19] MEDS: Bumetanide 1 MG TAB PO SCH ×2 (10:19→17:30)
[2018-05-19] MEDS: Calcitriol 0.25 MCG CAP PO SCH (10:22)
[2018-05-19] MEDS: Allopurinol 300 MG TAB PO SCH (10:22)
[2018-05-19] MEDS: Amlodipine 5 MG TAB PO SCH (10:23)
[2018-05-19] MEDS: Aspirin 325 mg Enteric Coated Tablet PO SCH (10:25)
[2018-05-19] MEDS: Docusate 100 MG CAP PO SCH ×3 (10:25→20:34)
[2018-05-19] MEDS: Gabapentin 300 MG CAP PO SCH ×2 (10:26→20:36)
[2018-05-19] MEDS: predniSONE 5 MG TAB PO SCH (10:26)
[2018-05-19] MEDS: Atorvastatin Calcium 10 MG TAB PO SCH (10:26)
[2018-05-19] MEDS: Montelukast Sodium 10 mg Tablet PO SCH (10:26)
[2018-05-19] MEDS: Loratadine 10 MG TAB PO SCH (10:27)
[2018-05-19] MEDS: Mycophenolate 250 MG CAP PO SCH ×2 (10:27→20:34)
[2018-05-19] MEDS: Tacrolimus 0.5 MG CAP PO SCH ×2 (10:28→20:58)
[2018-05-19] MEDS ORDERED: hydrALAZINE 20 MG/ML VIAL SLOW IVP PRN (14:34)
--- NOTE | 2018-05-19 15:37 | CON ---
DATE OF CONSULTATION: 05/19/2018 HISTORY OF PRESENT ILLNESS: Osbaldo Joseph is a 68-year-old black male with history of metastatic prostate cancer to the spine. He was admitted on May 17 with mental status changes as well as fever. Cultures have been unrevealing as far as a source of his fever. He then began to have an increase in his heart rate. He did have sinus tachycardia since the time of admission, but then began to have a supraventricular tachycardia at a rate of 142 per minute. He denied any chest discomfort. He has not had any cardiac arrhythmias in the past. He also denies any shortness of breath. PAST MEDICAL HISTORY: Remarkable for: 1. Prostate cancer with spine metastasis. 2. Diabetes mellitus. 3. Chronic kidney disease, stage 3. 4. History of renal transplant. 5. Diverticulitis. PAST SURGICAL HISTORY: 1. Renal transplant. 2. Abdominal and inguinal hernia repair. 3. Cholecystectomy. SOCIAL HISTORY: Does not smoke or drink. MEDICATIONS: At home include: 1. Zytiga 1000 mg daily. 2. Allopurinol 3 tablets daily. 3. Amitriptyline 20 nightly. 4. Amlodipine 2.5 daily. 5. Aspirin 325 daily. 6. Lipitor 10 mg daily. 7. Bumex daily. 8. Colchicine 0.6 mg b.i.d. p.r.n. 9. Zyrtec 10 mg daily. 10. Colace 100 b.i.d. 11. Nexium 40 mg q.p.m. 12. Gabapentin 900 mg q.p.m. 13. [place] p.r.n. 14. Insulin 52 units q.a.m. 15. Metoprolol 100 mg b.i.d. 16. Singulair 10 mg q.a.m. 17. Zofran 8 mg q.8 hours p.r.n. 18. MiraLax p.r.n. 19. Prednisone 5 mg q.a.m. 20. Tacrolimus 1 mg b.i.d. 21. Tizanidine 1 tablet t.i.d. 22. Tramadol 50 p.r.n. ALLERGIES: INCLUDE LATEX, MORPHINE, NSAIDS, BETADINE WHICH LEADS TO RASH, SHELLFISH ALLERGIES, TETRACYCLINE, LISINOPRIL CAUSES COUGHING, AND PENICILLIN. REVIEW OF SYSTEMS: Otherwise, unobtainable due to the patient's mental status. PHYSICAL EXAMINATION: VITAL SIGNS: Blood pressure 121/80 and pulse of 101 on the monitor, sinus tachycardia at the present time. HEENT: PERRL. NECK: Supple. CHEST: Clear. CARDIAC: S1 and S2 normal without any S3, S4, or murmurs. ABDOMEN: Obese. Normal bowel sounds. No tenderness. EXTREMITIES: Reveal 1+ pretibial edema. NEUROLOGIC: The patient is confused and does not answer questions at times, seems to be able to move all extremities. LABORATORY DATA: EKG reveals a supraventricular tachycardia with minor ST changes inferiorly. With intravenous Cardizem as well as digoxin a total of 0.75 mg, he is now definitely in sinus tachycardia with a rate of 101 per minute presently. Cardiac enzymes are unremarkable. Hemoglobin 8.7, hematocrit 26.9, white count 8500, and platelets 214,000. D-dimer 3.08. Sodium 132, potassium 5.0, chloride 106, carbon dioxide 15, BUN 32, and creatinine 1.72. TSH is normal. IMPRESSION: 1. Supraventricular tachycardia. From looking at the EKGs, it does not appear to be atrial flutter and may be a paroxysmal atrial tachycardia. With intravenous Cardizem and Digoxin, he is converted back to his baseline sinus tachycardia. 2. Metastatic prostate cancer. 3. Fever of unknown origin. 4. History of renal transplant. 5. Chronic kidney disease, stage 3. 6. Anemia. 7. Systemic inflammatory response syndrome. 8. Hyponatremia. 9. Chronic obstructive pulmonary disease. 10. Gastroesophageal reflux disease. 11. Hypothyroidism. 12. Hyperlipidemia. 13. Obesity. 14. Diabetes. PLAN: The patient will continue to be loaded with intravenous digoxin and we will transition over to p.o. Cardizem drip will be gradually decreased. If he has recurrence of his arrhythmia, consideration may be given to electrophysiology testing and possible ablation; however, hopefully, this can be controlled medically. He does have a history of iodine allergy and has some minor ST-segment abnormalities on his EKG. However, I feel that the risk of undergoing catheterization with his history of iodine allergy on an acute basis outweigh possible benefits. His cardiac enzymes remain normal and I have no evidence that he is having an acute myocardial infarction. Job ID: [id number] [facility]
--- NOTE | 2018-05-19 16:56 | RAD ---
CHEST ONE VIEW: 05/19/18 HISTORY: Hypoxia. Respiratory failure. COMPARISON: 05/17/18 study. Heart size is enlarged. Left subclavian line remains in place. Lungs are clear of any infiltrative pr ocess. The film was shot in a somewhat lordotic fashion. IMPRESSION: Cardiomegaly. No acute findings. Stable exam. POS: [facility]
--- NOTE | 2018-05-19 16:57 | RAD ---
KUB: 05/19/18 HISTORY: Abdominal distention. This is a portable exam and does not entirely include the pelvis. Bowel gas pattern appears nonobstructed. No radiopaque calculi are seen. IMPRESSION: Nonobstructed bowel gas pattern. POS: ABDOUL
--- NOTE | 2018-05-19 20:08 | EKG ---
Test Reason : Blood Pressure : / mmHG Vent. Rate : 145 BPM Atrial Rate : 145 BPM P-R Int : 000 ms QRS Dur : 072 ms QT Int : 302 ms P-R-T Axes : -02 060 084 degrees QTc Int : 469 ms Sinus tachycardia with short OK ST elevation consider inferior injury or acute infarct * ACUTE [place] * Abnormal ECG When compared with ECG of 17-MAY-2018 16:39, (Unconfirmed) ST elevation now present in Inferior leads ST less depressed in Lateral leads Nonspecific T wave abnormality no longer evident in Inferior leads T wave inversion no longer evident in Lateral leads Confirmed by SARAH ROMERO, DR. Corley ([id number]) on 05/19/2018 8:08:09 PM Referred By: Confirmed By:DR. Barney SMITH MD
--- NOTE | 2018-05-19 20:08 | EKG ---
Test Reason : Blood Pressure : / mmHG Vent. Rate : 142 BPM Atrial Rate : 142 BPM P-R Int : 000 ms QRS Dur : 072 ms QT Int : 304 ms P-R-T Axes : 000 058 086 degrees QTc Int : [address] elevation consider inferior injury or acute infarct * ACUTE CT * Abnormal ECG When compared with ECG of 18-MAY-2018 18:59, (Unconfirmed) No significant change was found Confirmed by SARAH ROMERO, . SMarin (4) on 05/19/2018 8:08:28 PM Referred By: Confirmed By:DR. Barney SMITH MD
--- NOTE | 2018-05-19 20:26 | ULT ---
ABDOMINAL ULTRASOUND: 05/19/18 HISTORY: Abdominal pain and distention. History of cholecystectomy. Hernia repair, prostatectomy and a kidney transplant. This examination is technically very difficult due to bowel gas and patient's difficulty in cooperati ng. The gallbladder has been removed. The common duct is in the 6 mm range. The liver measures approx imately 14 cm in length. It appears somewhat heterogeneous. No focal masses. The spleen is approximat nazario 9 cm in length. The pancreas is obscured as are the abdominal aorta and IVC . I do not definitively see either [place] kidney. Within the right side of the pelvis is what appears t o be the transplanted kidney. It measures 10.6 cm in length. It is not obstructed. IMPRESSION: 1. Postop cholecystectomy change. 2. Neither the right or left [place] kidneys are definitely visualized. Right sided renal transpl ant is not obstructed. POS: TAISHA
[2018-05-19] MEDS: Amitriptyline HCl 10 MG TAB PO SCH (20:35)
[2018-05-19] MEDS: Fentanyl 100 MCG/2 ML VIAL SLOW IVP PRN (20:45)
[2018-05-19] MEDS: Vancomycin HCl 1.75 GM in Sodium Chloride 0.9% 500 ML IVPB SCH (21:14)
[2018-05-19 21:22] LABS: Syphilis Antibody Nonreactive (Nonreactive); Syphilis Antibody Index 0.06 S/CO (<1.00 Non-Reactive)
[2018-05-19 23:49] LABS: HIV (1/2) Antibody/Antigen Non-Reactive (NonReactive)
[2018-05-20] MEDS: Lactated Ringer's 1,000 ML IV SCH ×3 (00:29→15:04)
[2018-05-20] MEDS: Cefepime 2 GM in Sodium Chloride 0.9% 100 ML IVPB SCH ×3 (00:49→18:56)
--- NOTE | 2018-05-20 02:08 | CON ---
DATE OF CONSULTATION: 05/19/2018 REASON FOR CONSULTATION: Fever. HISTORY OF PRESENT ILLNESS: A 68-year-old patient with a history of type 2 diabetes with prior end-stage renal disease with a previous renal transplant about 11 years ago in [place]. On chronic immunosuppressive medications including mycophenolate, tacrolimus, and low-dose prednisone as well as a history of gout and metastatic prostate cancer I believe since 2017 who was initially admitted at the beginning of this month with myalgias, fever, and some confusional state. Initial brain CT showed no evidence of acute intracranial process. Chest x-ray did not show any infiltrates. He was treated with broad-spectrum antimicrobial regimen and discharged on a long list of medications including Zyrtec, metoprolol, his immunosuppressive regimen, allopurinol, colchicine, and [place]. He was brought back by family members because of worsening mental state on the day of admission and low-grade temperature elevation. The patient had some pain in the right wrist. He does not recall any complaints of headaches. No dyspnea. No cough. No aspiration. No abdominal pain or diarrhea. No voiding difficulties. PAST MEDICAL HISTORY: Disseminated prostate cancer mostly to spine; gout; CKD, stage 3, with prior end-stage renal disease managed with transplantation 11 years ago; type 2 diabetes; and diverticulitis. FAMILY HISTORY: Noncontributory. SOCIAL HISTORY: Never smoker. ALLERGIES: ALLERGY HISTORY; LATEX, MORPHINE, IODINE, PENICILLIN WITH RASH, AND TETRACYCLINE. MEDICATIONS: Current meds are 1. Zyloprim. 2. Elavil. 3. Norvasc. 4. Ecotrin. 5. Lipitor. 6. Bumex. 7. Rocaltrol. 8. Cefepime. 9. Colchicine. 10. Digoxin. 11. Diltiazem. 12. Fentanyl. 13. Glucagon. 14. Insulin. 15. Metoprolol. 16. Zofran. 17. Protonix. 18. Vancomycin. 19. Tacrolimus. PHYSICAL EXAMINATION: VITAL SIGNS: Temperature max 100.6, currently 97.6. Blood pressure 130/60. Pulse 104. Respirations 18. O2 saturation 95%. SKIN: A little bit of redness in the presacral region, peripheral IV access, and voiding in the diaper. No lymphadenopathy. HEENT: Extraocular movements are conjugate. No nystagmus. Pupils are equal. Oral cavity, the patient did not cooperate further with the exam. NECK: Appears supple without jugular venous distention. LUNGS: Symmetric air entry with no obvious crackles or wheezing. HEART: S1 and S2, regular rate. No S3 or S4. Diminished heart sounds. No murmurs. ABDOMEN: Soft. Mildly distended. No obvious guarding. No ascites. No bladder distention or maybe a questionable bladder distention. No organomegaly. NEUROLOGIC: He has diffuse stiffness. He does not follow commands for him to move the extremities, so I cannot test his trunk. He is awake. He seems to be more responsive to his in a very limited fashion. He is disoriented. LABORATORY DATA: A pH of 7.4, a pCO2 of 31, and PO2 of 90. White cell count is 8.9 and 8.5. Hemoglobin 8.7. Platelets 214 with 69% neutrophils. Sodium 132. Creatinine 1.71 with a baseline of 1.08; May 06, 2018. Ammonia 18. Liver profile, albumin of 3.1. Transaminases normal. Alkaline phosphatase 214. Bilirubin 0.9. Troponin normal. BNP 52. Urinalysis fairly normal. Microbiology with negative blood culture x2. The urine culture from December 2017 was negative. Respiratory virus PCR negative. The patient had CHRISTOPHER complement which was unremarkable, that was many years ago. CMV DNA PCR was nonquantifiable, was less than 200 in December of this year. BK virus DNA PCR was negative in December of this year. Brain MRI completed yesterday with no abnormalities except for a clusters of multiple small old lacunar infarctions in the right cerebellar hemisphere. ASSESSMENT: 1. Metastatic prostate cancer. 2. End-stage renal disease in the past with renal transplant for 10 years now, on immunosuppressive medications. 3. Altered mental status with fever without obvious source with readmission because of the same symptoms. DISCUSSION: Differential diagnosis includes a chronic form of meningitis or encephalitis due to an opportunistic pathogen, for example, Cryptococcus neoformans, herpes simplex encephalitis, or other forms of encephalitis as well. Cytomegalovirus encephalitis would be less likely in view of the lack of MRI findings that are typical of this diagnosis. Fungal meningitis other than Cryptococcus neoformans including Histoplasma capsulatum meningitis is also considered. Toxo not likely in view of the absence of typical imaging findings. Toxic metabolic encephalopathy would be another possibility. We will submit serum testing for cryptococcus histoplasma antigen CMV DNA PCR. Order a fluoroscopy-guided spinal tap to access for the above opportunistic processes. Finally, lymphoma involving central nervous system would be less likely since usually mass lesions are seen with inflammatory changes in the leptomeninges. Job ID: [id number] MTDD
[2018-05-20] MEDS: Abiraterone Acetate [Zytiga] 1,000 MG PO SCH ×3 (06:10→08:36)
[2018-05-20] MEDS: HumaLOG 300 UNITS/3 ML VIAL SC PRN ×2 (06:57→22:12)
--- NOTE | 2018-05-20 10:17 | RAD ---
FLUOROSCOPICALLY DIRECTED LUMBAR PUNCTURE: HISTORY: Altered mental status encephalitis. Immunosuppression. After consent was obtained, the patient was prepped and draped in normal sterile fashion. Local anes thesia obtained with 1% Xylocaine. The patient was very uncooperative for the examination and was di fficult to hold in a single position. Initially, an L2-3 puncture was performed using a 22-gauge 5 i nch needle. A few drops of what appeared to be bloody CSF were obtained, but then no additional flow was obtained. Cross-table lateral views confirmed good positioning of the needle. After reviewing an MRCP examination, the L3-4, L4-5, and L5-S1 levels showed too small a thoracic spine to attempt at these levels and, therefore, an L1-2 puncture was subsequently performed using a 20-gauge 6-inch nee dle. Once again, a few drops of what appeared to be bloody fluid which could be bloody CSF or possib ly just blood was obtained. No additional flow was obtained through the needle. The needle on AP vi ew is exactly midline and in excellent position when a crosstable lateral view was obtained. We term inated the exam at this time. This small amount of that was obtained was sent to pathology. IMPRESSION: Fluoroscopically directed lumbar puncture as discussed above. POS: ABDOUL
--- NOTE | 2018-05-20 10:30 | PDOC.FM ---
- Subjective Subjective: Patient was being moved to stretcher to be taken to IR for LP this AM. He was aphasic but would acknowledge commands. - Objective MAR Reviewed: Yes Vital Signs & Weight: Vital Signs (12 hours) Temp Pulse Resp BP Pulse Ox 05/20/18 07:52 98.2 F 90 24 H 133/63 97 05/20/18 06:58 97 05/20/18 03:44 98.8 F 89 20 145/63 H 97 05/20/18 00:00 97.9 F 85 20 132/61 98 Weight Admit Weight 117.571 kg Weight 116.619 kg I&O: 05/19/18 05/20/18 05/21/18 06:59 06:59 06:59 Intake Total 162.5 823 Output Total 125 Balance 162.5 698 Result Diagrams: 05/19/18 02:36 05/19/18 02:36 EKG Reviewed by me: Yes Radiology Reviewed by me: Yes <Cintia Jackson - Last Filed: 05/20/18 10:31> - Objective Vital Signs & Weight: Vital Signs (12 hours) Temp Pulse Resp BP Pulse Ox 05/20/18 10:42 90 05/20/18 07:52 98.2 F 90 24 H 133/63 97 05/20/18 06:58 97 05/20/18 03:44 98.8 F 89 20 145/63 H 97 05/20/18 00:00 97.9 F 85 20 132/61 98 Weight Admit Weight 117.571 kg Weight 116.619 kg I&O: 05/19/18 05/20/18 05/21/18 06:59 06:59 06:59 Intake Total 162.5 823 Output Total 125 Balance 162.5 698 Result Diagrams: 05/19/18 02:36 05/19/18 02:36 <Saman Velazquez - Last Filed: 05/20/18 11:19> Phys Exam - Physical Examination Constitutional: NAD HEENT: moist MMs No acute respiratory distress. Gastrointestinal: soft mildly distended Musculoskeletal: pulses present Neurological: non-focal <Cintia Jackson - Last Filed: 05/20/18 10:31> Dx/Plan (1) Acute respiratory failure with hypoxia Code(s): J96.01 - ACUTE RESPIRATORY FAILURE WITH HYPOXIA Status: Acute (2) SIRS (systemic inflammatory response syndrome) Code(s): R65.10 - SIRS OF NON-INFECTIOUS ORIGIN W/O ACUTE ORGAN DYSFUNCTION Status: Acute (3) Hyponatremia Code(s): E87.1 - HYPO-OSMOLALITY AND HYPONATREMIA Status: Acute (4) CAD (coronary artery disease) Code(s): I25.10 - ATHSCL HEART DISEASE OF [place] CORONARY ARTERY W/O ANG PCTRS Status: Chronic Qualifiers: Coronary Disease-Associated Artery/Lesion type: [place] artery Associated angina: without angina (5) COPD (chronic obstructive pulmonary disease) Status: Chronic Qualifiers: COPD type: COPD with acute exacerbation Qualified Code(s): J44.1 - Chronic obstructive pulmonary disease with (acute) exacerbation (6) GERD (gastroesophageal reflux disease) Code(s): K21.9 - GASTRO-ESOPHAGEAL REFLUX DISEASE WITHOUT ESOPHAGITIS Status: Chronic (7) Hypothyroid Code(s): E03.9 - HYPOTHYROIDISM, UNSPECIFIED Status: Chronic (8) Normocytic anemia Code(s): D64.9 - ANEMIA, UNSPECIFIED Status: Chronic (9) Prostate cancer Code(s): C61 - MALIGNANT NEOPLASM OF PROSTATE Status: Chronic (10) CKD (chronic kidney disease) stage 3, GFR 30-59 ml/min Status: Chronic (11) Hx of kidney transplant Status: Chronic (12) Hyperlipidemia Code(s): E78.5 - HYPERLIPIDEMIA, UNSPECIFIED Status: Chronic (13) IDDM (insulin dependent diabetes mellitus) Code(s): E11.9 - TYPE 2 DIABETES MELLITUS WITHOUT COMPLICATIONS; Z79.4 - INTERMEDIATE (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 OF INSULIN Status: Chronic (14) Morbid obesity with BMI of 40.0-44.9, adult Code(s): E66.01 - MORBID (SEVERE) OBESITY DUE TO EXCESS CALORIES; Z68.41 - BODY MASS INDEX (BMI) 40.0-44.9, ADULT Status: Chronic (15) JUDI on CPAP Code(s): G47.33 - OBSTRUCTIVE SLEEP APNEA (ADULT) (PEDIATRIC) Status: Chronic (16) Tachycardia Code(s): R00.0 - TACHYCARDIA, UNSPECIFIED Status: Acute - Plan Plan: 68 year old male presents with encephalopathy SIRS, suspect underlying infection - Tachy 118, temp 102.9F, Tachypneic on admission. - Differentials include discitis, osteomyelitis, epidural abscess, endocarditis , meningitis, encephalitis - Patient had similar presentation 2 weeks ago. No source of infection was identified at that time. He was started on antibiotics, improved and was sent home. - UA neg; urine culture shows <5000 CFU's - Continue vanc and cefepime - Blood Cx NGTD - TTE showed EF 50-55% with grade II/III diastolic dysfunction. - Procalcitonin 0.58, 1.69 (increased suspicion for infection). Procalcitonin this AM pending - Moustapha consulted; appreciate recs. Plan for IR LP this AM. Concern for chronic meningitis vs. encephalitis 2/2 opportunistic infection. Orders have been placed to test CSF fluid and serum for things such as CMV, HSV, HIV, cryptococcus, etc. - Dr. Willson recommends bone scan; bone scan to be done today - CXR showed no acute findings. KUB negative for intraabdominal pathology or SBO. Abdominal sono nml. - Awaiting results of bone scan and LP to further evaluate cause of potential underlying etiology Metabolic encephalopathy - Unknown etiology; likely infectious as patient had no acute changes on CT or brain and MRI brain - Carotid doppler study limited; patient unable to move next to left; MRI w/wo contrast of cervical spine showed signal density likely related to mets. Bone scan was recommended - ESR elevated likely 2/2 metastatic prostate cancer - Lipid panel shows total cholesterol 87, LDL 51, and HDL 18 - Previous echo in 2011 showed EF 65-70%; Repeat TTE showed EF 50-55% with grade I/III diastolic infection - Spoke to Dr. Willson. He states he finished radiation appx 2 weeks ago. Patient had decided to undergo chemotherapy with Dr. Coon. Patient is due to undergo chemo within the next week, although that is likely to be delayed as patient is in hospital. He was supposed to have mediport placed by Dr. William this week. MRI of spine done at end of March which did not show anything concerning for infection at that time. Dr. Willson recommended possibly doing bone scan. Bone scan to be done today (05/20). - Pt refused LP on presentation; however, the signed consents for LP to be done under IR fluoroscopy. Patient went this AM. - Blood cultures NGTD - Tacrolimus level pending still - Resp viral panel negative - Fall precautions - Stroke team consulted, dysphagia screen passed. Patient having difficulty swallowing. Ulcers noted on tongue. Orders for opportunistic infections placed as indicated above. - Dr. Gerard consulted; appreciate recs - Likely component of delirium Tachycardia suscpisoius for atrial flutter vs. atrial tachycardia - EKG with ST elevations in II, III, AVF on 05/18 - Cardiology consulted. Appreciate recs - EKG changes likely 2/2 tachycardia - Troponins negative, patient asymptomatic - No cardiac cath at this time per cards. - Continue cardizem drip with plans to titrate off of drip and transition to PO cardizem and digoxin. Patient having difficulty tolerating PO, so may be more difficult to titrate off drip. Will continue to monitor. Acute hypoxic respiratory failure - ABG improved yesterday showed improved O2 - Now requiring 2-3 L O2 intermittently - CTA negative for PE - Repeat CXR this negative for any acute findings Right wrist pain - XR neg for fracture - can consider MRI or CT if pain persists - Spica thumb splint placed, continue to monitor Acute on Chronic Kidney Disease, s/p kidney transplant - GFR 44, baseline GFR 60-82 - Stage 2 CKD - Cr 1.87, elevated from baseline --> 1.6 this AM - IVF if patient not tolerating PO Hyponatremia - Na 132, likely chronic as value at baseline from previous admissions DM - continue home medications - mild SS, ACHS accuchecks 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 Willson. Patient reportedly to undergo chemotherapy within the next week. - Dr. William to place port; port would have been placed yesterday. Can consider consulting Nataliia while patient is here in hospital to have that done. HLD - continue home medications Hx of Gout - continue home medications JUDI on CPAP - aware, will continue CPAP here DISPO: admit to stroke. P CODE: FULL VTE: heparin Dispo: Guarded. Patient went for LP today by IR. Will follow up on results of LP and other studies that have been order. As of yet, we have been unable to identify cause of infection and encephalopathy. Moustapha has been consulted. We will continue to follow recommendations by specialists. <Cintia Jackson - Last Filed: 05/20/18 10:31> Attending Addendum - Attending Addendum Date/Time: 05/20/18 [id number] I personally evaluated the patient and discussed the management with Dr. Jackson. I agree with the History, Examination, Assessment and Plan documented above with any addition or exceptions noted below. <Saman Velazquez - Last Filed: 05/20/18 11:19>
[2018-05-20] MEDS: Bumetanide 1 MG TAB PO SCH ×2 (10:41→18:55)
[2018-05-20] MEDS: predniSONE 5 MG TAB PO SCH (10:41)
[2018-05-20] MEDS: Allopurinol 300 MG TAB PO SCH (10:41)
[2018-05-20] MEDS: Docusate 100 MG CAP PO SCH ×2 (10:42→21:18)
[2018-05-20] MEDS: Digoxin 0.125 MG TAB PO SCH (10:42)
[2018-05-20] MEDS: Atorvastatin Calcium 10 MG TAB PO SCH (10:42)
[2018-05-20] MEDS: Calcitriol 0.25 MCG CAP PO SCH (10:42)
[2018-05-20] MEDS: Aspirin 325 mg Enteric Coated Tablet PO SCH (10:42)
[2018-05-20] MEDS: Amlodipine 5 MG TAB PO SCH (10:42)
[2018-05-20] MEDS: Gabapentin 300 MG CAP PO SCH ×2 (10:43→21:19)
[2018-05-20] MEDS: Heparin 5,000 UNITS/ML VIAL SC SCH ×3 (10:43→21:18)
[2018-05-20] MEDS: Insulin Glargine 52 UNITS in Pre-Filled Syringe 1 EACH SC SCH (10:43)
[2018-05-20] MEDS: Tacrolimus 0.5 MG CAP PO SCH ×2 (10:44→21:20)
[2018-05-20] MEDS: Mycophenolate 250 MG CAP PO SCH ×2 (10:44→22:12)
[2018-05-20] MEDS: Loratadine 10 MG TAB PO SCH (10:44)
[2018-05-20] MEDS: Montelukast Sodium 10 mg Tablet PO SCH (10:44)
--- NOTE | 2018-05-20 12:11 | PDOC.EVN ---
Event Note - Event Note Event Note: Date/Time: 05/20/18 1205 Discussed care with Mr. Joseph's and daughter. They are frustrated that the LP was unsuccessful. They are frustrated that the while many potential diagnoses have been ruled out, we still don't know what the specific reason for his illness is. They are frustrated he has worsened over the past 3 days. They are frustrated that the paperwork completed wasn't satisfactory for the daughter's job to let her off for FMLA. They are requesting transfer to another facility. I reviewed his care so far with them, and affirmed their frustrations. I offered to review and complete any job related paperwork. We will initiate transfer process.
[2018-05-20] MEDS ORDERED: Sterile Water 10 ML VIAL IVP SCH ×2 (12:57→23:59)
[2018-05-20] MEDS ORDERED: Activase 2 MG VIAL CATH SCH ×2 (12:57→23:45)
--- NOTE | 2018-05-20 14:40 | PDOC.EVN ---
Event Note - Event Note Event Note: I met with patient's , Dianna, and daughter as I am Osbaldo's PCP in the office. We discussed all of the workup that been initiated and that a bone scan was ordered for this afternoon. We also discussed that we are still actively investigating and treating Mr. Joseph with broad spectrum antibiotics. We will be moving him to [facility] for higher level of care due to waning mentation. They felt satisfied with his care here and do not desire transfer at this time. We will continue close family meetings. Discussed plan with Dr. Jackson and Marcus.
--- NOTE | 2018-05-20 14:48 | NM ---
WHOLE BODY BONE SCAN: HISTORY: Prostate cancer with bone mets. RADIOPHARMACEUTICAL: 33 mCi Technetium 99-MDP injected intravenously. COMPARISON: 12/01/2017. FINDINGS: Foci of increased uptake in the skeleton including the ribs, left calvarium, spine, sacrum, sternum, scapulae, pelvic bones, and proximal femurs and humeri are again seen. There is increased uptake in the region of the clivus. The patient was unable to cooperate for a frontal view. What was thought to be facial bone involvement on the previous study is likely the involvement in the clivus. Tracer excretion through the kidneys within normal limits. IMPRESSION: Widespread osseous metastatic disease, essentially stable since 12/01/2017. POS: ABDOUL
[2018-05-20 16:11] LABS: #Eosinphils 0.3 thou/uL (0.0-0.7); #Lymphocytes 1.1 thou/uL (1.20-3.40); #Monocytes 0.4 thou/uL (0.11-0.59); #Neutrophils 4.5 thou/uL (1.40-6.50); %Basophils 0.3 % (0.0-1.0); %Eosinophils 4.5 % (0.0-10.0); %Lymphocytes 17.8 % (21.0-51.0); %Monocytes 6.7 % (0.0-10.0); %Neutrophils 70.7 % (42.0-75.0); Hemoglobin 8.2 g/dL (14.0-18.0); Mean Corpuscular Hemoglobin 29.5 pg (27.0-31.0); Mean Corpuscular Volume 92.1 fL (78.0-98.0); Platelet Count 218 thou/uL (130-400); RBC Distribution Width 17.5 % (11.5-14.5); Red Blood Cell (RBC) Count 2.78 mill/uL (4.70-6.10); White Blood Cell (WBC) Count 6.4 thou/uL (4.8-10.8)
[2018-05-20 16:16] LABS: INR-International Normal Ratio 1.5; Prothrombin Time 18.6 SEC (12.0-14.7)
[2018-05-20 16:35] LABS: ALT (SGPT) 7 U/L (8-55); AST (SGOT) 20 U/L (5-34); Albumin 2.6 g/dL (3.4-4.8); Alkaline Phosphatase 146 U/L (40-150); Anion Gap 13 mmol/L (10-20); BUN (Urea Nitrogen) 36 mg/dL (8.4-25.7); Bilirubin, Total 0.5 mg/dL (0.2-1.2); Calc. Creatinine Clearance 83 mL/min (70-130); Calcium 8.3 mg/dL (7.8-10.44); Carbon Dioxide 15 mmol/L (23-31); Chloride 111 mmol/L (98-107); Estimated GFR-MDRD 61; Globulin 3.3 g/dL (2.4-3.5); Glucose 273 mg/dL (80-115); Potassium 4.3 mmol/L (3.5-5.1); Protein, Total 5.9 g/dL (5.8-8.1); Sodium 135 mmol/L (136-145)
[2018-05-20 20:34] LABS: Vancomycin, Trough 28.9 ug/mL
[2018-05-20] MEDS: Vancomycin HCl 1.75 GM in Sodium Chloride 0.9% 500 ML IVPB SCH (21:38)
[2018-05-20] MEDS: Amitriptyline HCl 10 MG TAB PO SCH (22:16)
--- NOTE | 2018-05-20 22:18 | PRG ---
DATE OF SERVICE: 05/20/2018 SUBJECTIVE: Mr. Joseph is awake. He looks at his , but he cannot reply to questions. He has a hard time following commands and his spinal tap was unsuccessful, only clotted blood obtained. OBJECTIVE: VITAL SIGNS: His vital signs showed a T-max of 98.2, blood pressure 133/63. HEENT: His ocular movements are conjugate. He has very sluggish movements of his head. He looks around and has a hard time in replying to questions. It seems like he does not understand the questions sometimes very well. He seems to recognize his . LUNGS: Symmetric air entry. HEART: S1, S2. Regular rate. EXTREMITIES: Very sluggish movements in the extremities. NEUROLOGIC: His plantar responses are indifferent. No clonus. He is wearing a diaper. LABORATORY DATA: White cell count 6.4, hemoglobin 8.2, and platelets 211. Sodium 135, creatinine 1.39 which is less than admission. Liver profile is normal. Albumin 2.6. Urinalysis not remarkable. HIV and syphilis serologies nonreactive. Body fluid culture submitted, but it was just clotted blood, so that was not processed further. Cryptococcus antigen in the serum is negative. CSF assays were not submitted because of lack of proper specimen. Echocardiogram with EF of 65% , other findings were not remarkable. Nuclear medicine bone scan with wide spread osseous metastatic disease, stable since 12/01/2017. There is a foci of increased uptake in calvarium, left side spine, sacrum, and sternum. ASSESSMENT: 1. Renal transplant, on immunosuppressive medications. 2. Metastatic prostate cancer. 3. Mental status changes with some fever. DISCUSSION: Differential diagnosis includes COMPENSATION AGENT infection, encephalitis is one of the possibilities versus chronic meningitis including cryptococcal meningitis, histoplasma capsulatum meningitis versus the effects of metastatic disease in his brain. Metastatic prostate cancer can be associated with altered mental status when there is involvement of the dura. I do not think contrast was given at this time, so we cannot make statements as to that possibility at this point in time. Maybe another attempt can be made at fluoroscopy-guided tap. I have discussed the case with Dr. Jensen and he felt that the radiologist's approach would be still the one with better yield, maybe we could try a different radiologist for the procedure. Job ID: [id number] [facility]
[2018-05-21] MEDS: Cefepime 2 GM in Sodium Chloride 0.9% 100 ML IVPB SCH ×4 (01:27→23:27)
[2018-05-21] MEDS: Lactated Ringer's 1,000 ML IV SCH ×3 (01:27→16:58)
[2018-05-21] MEDS: HumaLOG 300 UNITS/3 ML VIAL SC PRN ×2 (05:28→20:57)
--- NOTE | 2018-05-21 05:36 | PDOC.FM ---
- Subjective Subjective: Patient on CPAP and not very arousable this AM. He was able to localize pain and open his eyes spontaneously at times. Family states that he is not talking or responding this AM. His vital signs have remained stable. Family is at bedside and a discussion was had regarding current plan of care. I explained the failed LP attempt, and Dr. Moustapha soto for repeating to obtain CSF pertinent for analysis. Informed family that Dr. Coon was called yesterday. She is aware patient is in hospital and is following case from [facility]. Explained need for NG tube to get patient medications and nutrients. Family was reluctant at first but agreed. - Objective MAR Reviewed: Yes Vital Signs & Weight: Vital Signs (12 hours) Temp Pulse Resp BP Pulse Ox 05/21/18 03:58 98.7 F 98 24 H 140/61 97 05/21/18 00:00 98.8 F 94 24 H 137/63 98 05/20/18 20:00 98.6 F 91 30 H 131/62 98 Weight Admit Weight 117.571 kg Weight 116.619 kg I&O: 05/19/18 05/20/18 05/21/18 06:59 06:59 06:59 Intake Total 162.5 823 Output Total 125 Balance 162.5 698 Result Diagrams: 05/20/18 15:59 05/21/18 06:54 EKG Reviewed by me: Yes Radiology Reviewed by me: Yes <Cintia Jackson - Last Filed: 05/21/18 11:20> - Objective Vital Signs & Weight: Vital Signs (12 hours) Temp Pulse Pulse Pulse Resp BP BP 05/21/18 12:25 103 H 103 H 151/73 H 165/73 H 05/21/18 11:32 97.1 F L 101 H 33 H 05/21/18 09:02 91 05/21/18 09:01 91 05/21/18 07:24 97.0 F L 91 17 05/21/18 06:40 05/21/18 03:58 98.7 F 98 24 H BP Pulse Ox 05/21/18 12:25 05/21/18 11:32 138/69 95 05/21/18 09:02 05/21/18 09:01 05/21/18 07:24 130/56 L 95 05/21/18 06:40 98 05/21/18 03:58 140/61 97 Weight Admit Weight 117.571 kg Weight 122.425 kg I&O: 05/20/18 05/21/18 05/22/18 06:59 06:59 06:59 Intake Total 823 1393 Output Total 125 Balance 698 1393 Result Diagrams: 05/20/18 15:59 05/21/18 06:54 <Josephine Christina - Last Filed: 05/21/18 15:45> Phys Exam - Physical Examination GCS 9 HEENT: PERRLA (sluggish to respond) Respiratory: no wheezing Cardiovascular: RRR, no significant murmur Gastrointestinal: soft, positive bowel sounds mildly distended left upper extremity edema of forearms and hand GCS 9, non-arousable Skin: no rash, cap refill <2 seconds <Cintia Jackson - Last Filed: 05/21/18 11:20> Dx/Plan (1) Acute respiratory failure with hypoxia Code(s): J96.01 - ACUTE RESPIRATORY FAILURE WITH HYPOXIA Status: Acute (2) SIRS (systemic inflammatory response syndrome) Code(s): R65.10 - SIRS OF NON-INFECTIOUS ORIGIN W/O ACUTE ORGAN DYSFUNCTION Status: Acute (3) Hyponatremia Code(s): E87.1 - HYPO-OSMOLALITY AND HYPONATREMIA Status: Acute (4) CAD (coronary artery disease) Code(s): I25.10 - ATHSCL HEART DISEASE OF [place] CORONARY ARTERY W/O ANG PCTRS Status: Chronic Qualifiers: Coronary Disease-Associated Artery/Lesion type: [place] artery Associated angina: without angina (5) COPD (chronic obstructive pulmonary disease) Status: Chronic Qualifiers: COPD type: COPD with acute exacerbation Qualified Code(s): J44.1 - Chronic obstructive pulmonary disease with (acute) exacerbation (6) GERD (gastroesophageal reflux disease) Code(s): K21.9 - GASTRO-ESOPHAGEAL REFLUX DISEASE WITHOUT ESOPHAGITIS Status: Chronic (7) Hypothyroid Code(s): E03.9 - HYPOTHYROIDISM, UNSPECIFIED Status: Chronic (8) Normocytic anemia Code(s): D64.9 - ANEMIA, UNSPECIFIED Status: Chronic (9) Prostate cancer Code(s): C61 - MALIGNANT NEOPLASM OF PROSTATE Status: Chronic (10) CKD (chronic kidney disease) stage 3, GFR 30-59 ml/min Status: Chronic (11) Hx of kidney transplant Status: Chronic (12) Hyperlipidemia Code(s): E78.5 - HYPERLIPIDEMIA, UNSPECIFIED Status: Chronic (13) IDDM (insulin dependent diabetes mellitus) Code(s): E11.9 - TYPE 2 DIABETES MELLITUS WITHOUT COMPLICATIONS; Z79.4 - SNF (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 OF INSULIN Status: Chronic (14) Morbid obesity with BMI of 40.0-44.9, adult Code(s): E66.01 - MORBID (SEVERE) OBESITY DUE TO EXCESS CALORIES; Z68.41 - BODY MASS INDEX (BMI) 40.0-44.9, ADULT Status: Chronic (15) JUDI on CPAP Code(s): G47.33 - OBSTRUCTIVE SLEEP APNEA (ADULT) (PEDIATRIC) Status: Chronic (16) Tachycardia Code(s): R00.0 - TACHYCARDIA, UNSPECIFIED Status: Acute - Plan Plan: 68 year old male presents with encephalopathy SIRS, suspect underlying infection - Tachy 118, temp 102.9F, Tachypneic on admission. - Differentials at this time include encephalitis from infectious or autoimmune cause, meningitis, brain mets not identified on prior imaging - Patient had similar presentation 2 weeks ago. No source of infection was identified at that time. He was started on antibiotics, improved and was sent home. - UA neg; urine culture shows <5000 CFU's - Continue vanc and cefepime for broad coverage spectrum of potential [employer] infection - Blood Cx NGTD - TTE showed EF 50-55% with grade II/III diastolic dysfunction. - Procalcitonin 0.58, 1.69, 0.99 (headed in right direction). - Moustapha consulted; appreciate recs. IR LP unsuccessful yesterday. Neurosurgery was called by Dr. Gerard for recs on other ways to get [employer] fluid. Neurosurgery recommends repeat LP with IR. Concern for chronic meningitis vs. encephalitis 2/ 2 opportunistic infection. Orders have been placed to test CSF fluid and serum for things such as CMV, HSV, HIV, cryptococcus, etc. - Dr. Willson recommended bone scan; bone scan performed showed diffuse metastases - CXR showed no acute findings. KUB negative for intraabdominal pathology or SBO. Abdominal sono nml. - Neurology consulted this AM for another opinion. 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 Appreciate neuro recs. - Patient has been off of chronic steroids for 2 days d/t not tolerating PO. Will give patient stress dose of steroids. Metabolic encephalopathy - Unknown etiology; likely infectious as patient had no acute changes on CT or brain and MRI brain that would suggest stroke. - Carotid doppler study limited; patient unable to move next to left; MRI w/wo contrast of cervical spine showed signal density likely related to mets. Bone scan was recommended - ESR elevated likely 2/2 metastatic prostate cancer - Lipid panel shows total cholesterol 87, LDL 51, and HDL 18 - Previous echo in 2011 showed EF 65-70%; Repeat TTE showed EF 50-55% with grade I/III diastolic infection - Spoke to Dr. Willson. He states he finished radiation appx 2 weeks ago. Patient had decided to undergo chemotherapy with Dr. Coon. Patient was due to start chemo yesterday. Dr. Coon was called yesterday, she states that she has been trying to get patient to do chemo for the last year. He was supposed to have mediport placed by Dr. William this week. MRI of spine done at end of March which did not show anything concerning for infection at that time. Dr. Willson recommended bone scan. Bone scan showed diffuse mets. Dr. Coon is following patient from a distance. - Pt refused LP on presentation; however, the signed consents for LP to be done under IR fluoroscopy. Initial LP with IR unsuccessful. Plan for repeat possibly today. - Blood cultures NGTD - Tacrolimus level pending still - Resp viral panel negative - Fall precautions - Stroke team consulted, dysphagia screen passed initially. However, patient is now minimally responsive and unable to take PO. He will be getting an NG tube for nutrients and medications. We will continue to watch neuro status and if it further declines patient may need intubation to help protect the airway. - Dr. Gerard consulted; appreciate recs - Neurology consulted; appreciate recs Tachycardia suscpisoius for atrial flutter vs. atrial tachycardia - EKG with ST elevations in II, III, AVF on 05/18 - Cardiology consulted. Appreciate recs. - EKG changes likely 2/2 tachycardia - Troponins negative, patient asymptomatic - No cardiac cath at this time per cards. - Patient off cardizem drip. He was transitioned to PO cardizem and digoxin. Patient having difficulty tolerating PO. NG tube being placed for nutrition and medications. Acute hypoxic respiratory failure - ABG with improved O2 several days ago - Requiring 2-3 L O2 intermittently along with CPAP for which patient uses at home when he sleeps - CTA negative for PE - Repeat CXR this negative for any acute findings - Continue to monitor O2 status Right wrist pain - XR neg for fracture - can consider MRI or CT if pain persists - Spica thumb splint placed, continue to monitor Acute on Chronic Kidney Disease, s/p kidney transplant - GFR 44, baseline GFR 60-82 - Stage 2 CKD - Cr 1.87, elevated from baseline --> 1.6 --> 1.2 Hyponatremia - Na 132, likely chronic as value at baseline from previous admissions DM - continue home medications - mild SS, ACHS accuchecks 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 Willson. Patient reportedly to undergo chemotherapy within the next week. - Dr. William to place port; port would have been placed Wed. Chemo delayed at this time HLD - continue home medications Hx of Gout - continue home medications JUDI on CPAP - aware, will continue CPAP here DISPO: Patient transferred to [facility] yesterday for closer observation and due to declining mental status. CODE: FULL VTE: heparin Dispo: Guarded. Pending repeat LP and results of studies. Appreciate neurology, infectious disease, Heme/onc, Radiation onc, and cardiology recs. Will continue to investigate potential sources of encephalopathy and update family as new information arises. <Cintia Jackson - Last Filed: 05/21/18 11:20> Attending Addendum - Attending Addendum Date/Time: 05/21/18 [id number] I personally evaluated the patient and discussed the management with Dr. Jackson at 9 am. I agree with the History, Examination, Assessment and Plan documented above with any addition or exceptions noted below. 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 This morning I saw patient and discussed case with patients daughter. At the time of my exam he was somnolent in bed with nasal CPAP in place. When talking to him he didn't open his eyes ( which is a change from yesterday at noon). He localizes pain and moves all extremities and will open his eyes to pain and moan. GCS is 9. Metabolic encephalopathy- Patient on Vanc/Cefepime/Acyclovir and procalcitonin decreasing. patient refused LP on arrival and unable to get fluid with IR attempt yesterday. Will try repeat today. Bone scan showed no interval change and no obvious intracranial mets. Will consult neurology for additional input. Will give a stress dose of steroids as well. Plan to place NGT for med administration (and probably NG feeds starting tomorrow). Differential at this time is viral or bacterial encephalitis or paraneoplastic autoimmune encephalitis. Appreciate ID and neurology recommendations. Will continue to update family of any changes. <Josephine Christina - Last Filed: 05/21/18 15:45>
[2018-05-21 07:21] LABS: Anion Gap 10 mmol/L (10-20); BUN (Urea Nitrogen) 33 mg/dL (8.4-25.7); Calc. Creatinine Clearance 98 mL/min (70-130); Calcium 8.3 mg/dL (7.8-10.44); Carbon Dioxide 19 mmol/L (23-31); Chloride 112 mmol/L (98-107); Estimated GFR-MDRD 71; Glucose 218 mg/dL (80-115); Sodium 137 mmol/L (136-145)
[2018-05-21] MEDS: Heparin 5,000 UNITS/ML VIAL SC SCH ×3 (08:47→20:52)
[2018-05-21] MEDS ORDERED: Vancomycin HCl 1.75 GM in Sodium Chloride 0.9% 500 ML IVPB SCH ×2 (09:00→10:00)
[2018-05-21] MEDS: Aspirin 325 mg Enteric Coated Tablet PO SCH (09:00)
[2018-05-21] MEDS: Bumetanide 1 MG TAB PO SCH ×2 (09:00→16:57)
[2018-05-21] MEDS: Allopurinol 300 MG TAB PO SCH (09:01)
[2018-05-21] MEDS: Docusate 100 MG CAP PO SCH ×2 (09:01→20:51)
[2018-05-21] MEDS: Digoxin 0.125 MG TAB PO SCH (09:01)
[2018-05-21] MEDS: Mycophenolate 250 MG CAP PO SCH ×2 (09:01→20:52)
[2018-05-21] MEDS: Loratadine 10 MG TAB PO SCH (09:01)
[2018-05-21] MEDS: Atorvastatin Calcium 10 MG TAB PO SCH (09:01)
[2018-05-21] MEDS: Tacrolimus 0.5 MG CAP PO SCH ×2 (09:01→20:52)
[2018-05-21] MEDS: Amlodipine 5 MG TAB PO SCH (09:02)
[2018-05-21] MEDS: Gabapentin 300 MG CAP PO SCH ×2 (09:02→20:52)
[2018-05-21] MEDS: Montelukast Sodium 10 mg Tablet PO SCH (09:03)
[2018-05-21] MEDS: Calcitriol 0.25 MCG CAP PO SCH (09:03)
[2018-05-21] MEDS: Insulin Glargine 52 UNITS in Pre-Filled Syringe 1 EACH SC SCH (09:03)
[2018-05-21] MEDS: Abiraterone Acetate [Zytiga] 1,000 MG PO SCH (09:04)
[2018-05-21] MEDS: Vancomycin HCl 1.75 GM in Sodium Chloride 0.9% 500 ML IVPB SCH (09:36)
[2018-05-21] MEDS ORDERED: VANCOMYCIN IVPB PRN (09:59)
[2018-05-21] MEDS ORDERED: methylPREDNISolone Sod Succ/PF 125 MG/2 ML VIAL IVP SCH (10:48)
[2018-05-21] MEDS: predniSONE 5 MG TAB PO SCH (11:26)
[2018-05-21 13:15] LABS: Tacrolimus 17.3 ng/mL (2.0-20.0)
[2018-05-21 16:14] LABS: Folate,Hemolysate 301.4 ng/mL (Not Estab.); Hematocrit 24.1 % (37.5-51.0); RBC Folate Test Component 1251 ng/mL (>498)
--- NOTE | 2018-05-21 17:28 | PDOC.EVN ---
Event Note - Event Note Event Note: Reevaluated pt due to concerns earlier in the day that pt's GCS was 8-9. Reviewed case with neurologist who stated she also had concerns over pt's ability to protect airway. She notified me that EEG was abnormal and pt was started on fosphenytoin. Discussed case with photovoltaic fabrication technician creative assistant who recommended assessing pt's gag reflex as ability to protect airway. Suction attempted by RN and pt had vigorous response with gag reflex intact. Will continue to monitor pt closely at this time and not proceed with intubation.
--- NOTE | 2018-05-21 17:44 | PRG ---
DATE OF SERVICE: 05/21/2018 SUBJECTIVE: He just had an EEG, which was read and it showed that he has epileptiform activity in the temporal areas, right greater than left. I will start him on dilantin IV. I would rather not start him on Keppra because of his renal function and his history of renal transplant. PLAN: We will start him on Cerebyx or dilantin 100 mg q.8 hours and follow the levels. Job ID: [id number] [facility]
[2018-05-21] MEDS: Amitriptyline HCl 10 MG TAB PO SCH (20:51)
--- NOTE | 2018-05-21 23:37 | CON ---
DATE OF CONSULTATION: 05/21/2018 TYPE OF CONSULTATION: Neurology REASON FOR REFERRAL: Altered mental status. HISTORY OF PRESENT ILLNESS: This is a 68-year-old male, who is here for altered mental status. This altered mental status started about 5 days ago and came on over several hours. His daughter is in the room, Maurice, who gives most of the history. The patient cannot give any history. PAST MEDICAL HISTORY: Significant for elevated cholesterol, metastatic prostate cancer, history of gout, and diabetes. PAST SURGICAL HISTORY: He has had a kidney transplant in the past. FAMILY HISTORY: Positive for diabetes and heart disease. SOCIAL HISTORY: He does not smoke or drink. REVIEW OF SYSTEMS: His family states that he fell around Thanksgiving time and injured his right wrist. He had been around his family with some young children around Thanksgiving time, which was about 3 days prior to the onset of his altered mental status. It is noted that the patient has difficulty getting around due to severe limb pain and back pain from his metastatic prostate cancer. He also is undergoing radiation therapy for his prostate cancer. His daughter notes that he did complain of a headache, and he had been having some fevers recently. PHYSICAL EXAMINATION: GENERAL: He is very obtunded. He does not follow any commands. He opens his eyes a little bit, not to command. He is obese. NECK: Does not appear to be stiff. Supple. VITAL SIGNS: Temperature has been as high as 102.9 and blood pressure 129/72. HEENT: Negative. LUNGS: Clear. HEART: No murmurs or gallops. ABDOMEN: Soft. Bowel sounds are present. He is obese. MUSCULOSKELETAL: He move his extremities. Limited in the right wrist due to pain. He is wearing a brace on his right wrist. SKIN: He does have some venous stasis changes of his lower extremities. There is no edema. LABORATORY AND DIAGNOSTIC DATA: Review of testing results shows a white count of 8.9, hemoglobin 10.4, and hematocrit 31.1. Ammonia level on 05/17/2018 was 18. AST 15 and ALT less than 7. UA did not show any white cells. X-ray was performed of the right wrist that did not show any fracture. Other test results showed a CT of the brain on 05/17/2018, which was normal. MRI of the brain on 05/18/2018, this was done without contrast, there were no acute intracranial findings. 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 No change since April 23, 2005. Contrast could not be given due to his renal status. A carotid doppler done on 05/18/2018 was limited due to the patient's inability to tolerate positioning. A cervical spine MRI was done on 05/18/2018, it showed diffuse low T1 marrow signal. The patient does have known spinal metastases from his prostate cancer. Echocardiogram showed an ejection fraction of 60% to 65%, left atrium abnormal size, mild tricuspid regurgitation, and trace mitral regurgitation. No vegetations were seen. Note that a lumbar puncture was attempted, but not successful. A lumbar puncture under fluoroscopy is pending by Interventional Radiology. IMPRESSION: Altered mental status. The patient has an immunosuppressed status due to renal transplant and prostate cancer. He could be at risk for central nervous system infections, or his fever and altered mental status could be due to intracerebral metastases. Note that contrast cannot be given because of his renal status. PLAN: I agree with getting a lumbar puncture by Interventional Radiology, and check for gram stain, cell count, glucose, protein, and herpes PCR. Note that Infectious Disease is seeing him at this time, and the patient is on antibiotics with vancomycin, and he is on antiviral agent, acyclovir. Also, I ordered an EEG to assess for any underlying seizures. I discussed in detail with the patient's daughter, Maurice, and answered her questions. Job ID: [id number]
[2018-05-22] MEDS: Lactated Ringer's 1,000 ML IV SCH ×2 (02:00→09:32)
[2018-05-22 04:28] LABS: Anion Gap 17 mmol/L (10-20); BUN (Urea Nitrogen) 28 mg/dL (8.4-25.7); Calc. Creatinine Clearance 105 mL/min (70-130); Calcium 8.2 mg/dL (7.8-10.44); Carbon Dioxide 13 mmol/L (23-31); Chloride 110 mmol/L (98-107); Estimated GFR-MDRD 76; Glucose 336 mg/dL (80-115); Potassium 4.3 mmol/L (3.5-5.1); Sodium 136 mmol/L (136-145)
[2018-05-22 04:31] LABS: Digoxin 1.24 ng/mL (0.8-2.0)
[2018-05-22] MEDS: Fosphenytoin Sodium 100 MG in Sodium Chloride 0.9% 50 ML IVPB SCH ×2 (05:09→15:47)
[2018-05-22] MEDS: Abiraterone Acetate [Zytiga] 1,000 MG PO SCH (05:10)
[2018-05-22] MEDS: HumaLOG 300 UNITS/3 ML VIAL SC PRN ×4 (05:13→23:28)
[2018-05-22 06:14] LABS: CMV IgG AB Greater than 10.00 U/mL (0.00-0.59)
--- NOTE | 2018-05-22 06:44 | PDOC.FM ---
- Subjective Subjective: Patient unchanged from yesterday during my exam this AM. However, on team rounds this AM, patient was noted to have repetitive chewing motion. This was a new finding as of today. The patient's reports that he was responding to commands this morning by squeezing the nurses hand when asked. He also reportedly opened his eye briefly this AM per the 's report. Patient has NG tube in place. - Objective MAR Reviewed: Yes Vital Signs & Weight: Vital Signs (12 hours) Temp Pulse Resp BP Pulse Ox 05/22/18 04:00 98.0 F 98 22 H 140/63 94 L 05/21/18 23:42 97.4 F L 91 30 H 130/62 97 05/21/18 19:55 98.0 F 97 35 H 152/62 H 96 05/21/18 19:30 97 Weight Admit Weight 122.425 kg Weight 123.74 kg I&O: 05/20/18 05/21/18 05/22/18 06:59 06:59 06:59 Intake Total 823 1393 1568 Output Total 125 1800 Balance 698 1393 -232 Result Diagrams: 05/20/18 15:59 05/22/18 03:55 EKG Reviewed by me: Yes Radiology Reviewed by me: Yes <Cintia Jackson - Last Filed: 05/22/18 18:02> - Objective Vital Signs & Weight: Vital Signs (12 hours) Temp Pulse Pulse Resp BP BP BP 05/23/18 11:05 98.9 F 83 18 05/23/18 09:40 84 124/52 L 05/23/18 09:36 84 05/23/18 09:34 84 124/52 L 05/23/18 08:40 84 124/61 117/55 L 05/23/18 07:38 05/23/18 07:21 98.9 F 84 18 05/23/18 05:44 05/23/18 04:00 97.2 F L 82 20 BP BP Pulse Ox Pulse Ox 05/23/18 11:05 116/56 L 95 05/23/18 09:40 05/23/18 09:36 05/23/18 09:34 05/23/18 08:40 124/52 L 95 05/23/18 07:38 98 05/23/18 07:21 114/49 L 97 05/23/18 05:44 98 05/23/18 04:00 119/65 98 Weight Admit Weight 122.425 kg Weight 124.103 kg I&O: 05/22/18 05/23/18 05/24/18 06:59 06:59 06:59 Intake Total 1568 1208 Output Total 1800 975 Balance -232 233 Result Diagrams: 05/20/18 15:59 05/23/18 04:58 <Debra Richey - Last Filed: 05/23/18 14:55> Phys Exam - Physical Examination GCS 9, gag reflex intact HEENT: moist MMs Rhonchi noted throughout Cardiovascular: RRR, no significant murmur Gastrointestinal: soft mildly distended edema of right hand which is improved minimally responsive Skin: cap refill <2 seconds <Cintia Jackson - Last Filed: 05/22/18 18:02> Dx/Plan (1) Acute respiratory failure with hypoxia Code(s): J96.01 - ACUTE RESPIRATORY FAILURE WITH HYPOXIA Status: Acute (2) SIRS (systemic inflammatory response syndrome) Code(s): R65.10 - SIRS OF NON-INFECTIOUS ORIGIN W/O ACUTE ORGAN DYSFUNCTION Status: Acute (3) Hyponatremia Code(s): E87.1 - HYPO-OSMOLALITY AND HYPONATREMIA Status: Acute (4) CAD (coronary artery disease) Code(s): I25.10 - ATHSCL HEART DISEASE OF [place] CORONARY ARTERY W/O ANG PCTRS Status: Chronic Qualifiers: Coronary Disease-Associated Artery/Lesion type: [place] artery Associated angina: without angina (5) COPD (chronic obstructive pulmonary disease) Status: Chronic Qualifiers: COPD type: COPD with acute exacerbation Qualified Code(s): J44.1 - Chronic obstructive pulmonary disease with (acute) exacerbation (6) GERD (gastroesophageal reflux disease) Code(s): K21.9 - GASTRO-ESOPHAGEAL REFLUX DISEASE WITHOUT ESOPHAGITIS Status: Chronic (7) Hypothyroid Code(s): E03.9 - HYPOTHYROIDISM, UNSPECIFIED Status: Chronic (8) Normocytic anemia Code(s): D64.9 - ANEMIA, UNSPECIFIED Status: Chronic (9) Prostate cancer Code(s): C61 - MALIGNANT NEOPLASM OF PROSTATE Status: Chronic (10) CKD (chronic kidney disease) stage 3, GFR 30-59 ml/min Status: Chronic (11) Hx of kidney transplant Status: Chronic (12) Hyperlipidemia Code(s): E78.5 - HYPERLIPIDEMIA, UNSPECIFIED Status: Chronic (13) IDDM (insulin dependent diabetes mellitus) Code(s): E11.9 - TYPE 2 DIABETES MELLITUS WITHOUT COMPLICATIONS; Z79.4 - VIBRATION TECHNICIAN (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 OF INSULIN Status: Chronic (14) Morbid obesity with BMI of 40.0-44.9, adult Code(s): E66.01 - MORBID (SEVERE) OBESITY DUE TO EXCESS CALORIES; Z68.41 - BODY MASS INDEX (BMI) 40.0-44.9, ADULT Status: Chronic (15) JUDI on CPAP Code(s): G47.33 - OBSTRUCTIVE SLEEP APNEA (ADULT) (PEDIATRIC) Status: Chronic (16) Tachycardia Code(s): R00.0 - TACHYCARDIA, UNSPECIFIED Status: Acute - Plan Plan: 68 year old male presents with encephalopathy SIRS, suspect underlying infection - Tachy 118, temp 102.9F, Tachypneic on admission. - Differentials at this time include encephalitis from infectious or autoimmune cause, meningitis, brain mets not identified on prior imaging - Patient had similar presentation 2 weeks ago. No source of infection was identified at that time. He was started on antibiotics, improved and was sent home. - UA neg; urine culture shows <5000 CFU's - Continue vanc and cefepime for broad coverage spectrum of potential ENCAPSULATOR infection - Blood Cx NGTD - TTE showed EF 50-55% with grade II/III diastolic dysfunction. - Procalcitonin 0.58, 1.69, 0.99, 0.53 (reassuring progression) - Moustapha consulted; appreciate recs. Initial IR LP unsuccessful. Neurosurgery was called by Dr. Gerard for recs on other ways to get ENCAPSULATOR fluid. Neurosurgery recommends repeat LP with IR. Concern for chronic meningitis vs. encephalitis 2/ 2 opportunistic infection. Orders have been placed to test CSF fluid and serum for things such as CMV, HSV, HIV, cryptococcus, etc. Will contact IR regarding repeat LP which is necessary to rule out the above etiologies. - Dr. 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 Fosphenytoin added as EEG showed evidence of epilpetiform activity. Will contact pharmacy about dosing as phenytoin level not therapeutic currently. Metabolic encephalopathy - Unknown etiology; likely infectious as patient had no acute changes on CT or brain and MRI brain that would suggest stroke. - Carotid doppler study limited; patient unable to move next to left; MRI w/wo contrast of cervical spine showed signal density likely related to mets. Bone scan was recommended - ESR elevated likely 2/2 metastatic prostate cancer - Lipid panel shows total cholesterol 87, LDL 51, and HDL 18 - Previous echo in 2011 showed EF 65-70%; Repeat TTE showed EF 50-55% with grade I/III diastolic infection - Spoke to Dr. Willson. He states he finished radiation appx 2 weeks ago. Patient had decided to undergo chemotherapy with Dr. Coon. Patient was due to start chemo yesterday. Dr. Coon was called yesterday, she states that she has been trying to get patient to do chemo for the last year. He was supposed to have mediport placed by Dr. William this week. MRI of spine done at end of March which did not show anything concerning for infection at that time. Dr. Willson recommended bone scan. Bone scan showed diffuse mets. Dr. Coon is following patient from a distance. - Blood cultures NGTD - Tacrolimus level pending still - Resp viral panel negative - Fall precautions - Stroke team consulted, dysphagia screen passed initially. However, patient is now minimally responsive and unable to take PO. He will be getting an NG tube for nutrients and medications. We will continue to watch neuro status and if it further declines patient may need intubation to help protect the airway. - Dr. Gerard consulted; appreciate recs - Neurology consulted; appreciate recs - CMV in the past as evidenced by CMV IgG ab's but no recent infection ( negative IgM ab's), negative HIV, negative RPR Tachycardia suspicious for atrial flutter vs. atrial tachycardia, resolved - EKG with ST elevations in II, III, AVF on 05/18 - Cardiology consulted. Appreciate recs. - EKG changes likely 2/2 tachycardia - Troponins negative, patient asymptomatic - No cardiac cath at this time per cards. - Patient off cardizem drip. He was transitioned to PO cardizem and digoxin. Patient having difficulty tolerating PO. NG tube in place for nutrition and medications. Patient not able to get chemotherapy drugs d/t NPO status and the fact that the medication cannot be crushed to be given through tube. Acute hypoxic respiratory failure - ABG with improved O2 several days ago; Bicarb of 18 on ABG today with pH of 7.45 - Requiring 2-3 L O2 intermittently. Was on RA this AM satting 94%. - CTA negative for PE - Repeat CXR this negative for any acute findings - Continue to monitor O2 status - Concern for aspiration and ability to protect airway. Patient's GCS 9, reflexes intact. Discussed with pulm. No intent to intubate at this time. Will monitor respiratory status. - Consider chest xray and addition of anaerobic coverage should patient become febrile or should respiratory status worsen. Right wrist pain - XR neg for fracture - can consider MRI or CT if pain persists - Spica thumb splint placed, continue to monitor - Swelling has improved Acute on Chronic Kidney Disease, s/p kidney transplant - GFR 44, baseline GFR 60-82 - Stage 2 CKD - Cr 1.87, elevated from baseline --> 1.6 --> 1.2 Hyponatremia - Na 132, likely chronic as value at baseline from previous admissions DM - continue home medications - mild SS, ACHS accuchecks 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 Willson. Patient reportedly to undergo chemotherapy within the next week. - Dr. William to place port; port would have been placed Wed. Chemo delayed at this time - Diffuse mets based on bone scan HLD - continue home medications Hx of Gout - continue home medications JUDI on CPAP - aware, will continue CPAP here DISPO: Patient transferred to [facility] yesterday for closer observation and due to declining mental status. His mental status is unchanged from yesterday. CODE: FULL VTE: heparin Dispo: Guarded. LP needs to be repeated. Will touch base with IR today. Will adjust dose of seizure medication to ensure therapeutic. Appreciate recommendations from specialists. <Cintia Jackson - Last Filed: 05/22/18 18:02> Attending Addendum - Attending Addendum Date/Time: 05/22/18 [id number] I personally evaluated the patient and discussed the management with Dr. Jackson. I agree with the History, Examination, Assessment and Plan documented above with any addition or exceptions noted below. The patient did not follow commands for us and exhibited a repetitive chewing motion with his mouth. We will ask IR to repeat the lumbar puncture as the 1st was insufficient. Pt is subtherapeutic on seizure medication, will adjusts dose. <Debra Richey - Last Filed: 05/23/18 14:55>
[2018-05-22 07:19] LABS: Actual Bicarbonate (HCO3a) 12.7 mEq/L (22-28); Base Excess (BEa) -9.6 mEq/L (-2.0 to +3.0); Calcium, Ionized 1.13 mmol/L (1.12-1.30); Carboxyhemoglobin (COHb) 0.6 gm% (0.0-3.0); O2 Tension (PaO2) 88.9 mmHg (> 80.0); Potassium - ABG Lab 3.98 mmol/L (3.70-5.30); pH, Arterial 7.45 (7.35-7.45)
[2018-05-22 07:27] LABS: CO2 Tension 18.8 mmHg (35.0-45.0); Puncture Site RB
[2018-05-22 09:04] LABS: Vancomycin, Random 23.6 ug/mL (See Comment)
[2018-05-22] MEDS: Insulin Glargine 52 UNITS in Pre-Filled Syringe 1 EACH SC SCH (09:32)
[2018-05-22] MEDS: Cefepime 2 GM in Sodium Chloride 0.9% 100 ML IVPB SCH ×3 (09:32→23:27)
[2018-05-22] MEDS: predniSONE 5 MG TAB PO SCH (09:32)
[2018-05-22] MEDS: Heparin 5,000 UNITS/ML VIAL SC SCH ×3 (09:33→20:38)
[2018-05-22] MEDS: Montelukast Sodium 10 mg Tablet PO SCH (09:33)
[2018-05-22] MEDS: Digoxin 0.125 MG TAB PO SCH (09:33)
[2018-05-22] MEDS: Calcitriol 0.25 MCG CAP PO SCH (09:33)
[2018-05-22] MEDS: Atorvastatin Calcium 10 MG TAB PO SCH (09:33)
[2018-05-22] MEDS: Docusate 100 MG CAP PO SCH ×2 (09:34→20:38)
[2018-05-22] MEDS: Gabapentin 300 MG CAP PO SCH (09:34)
[2018-05-22] MEDS: Amlodipine 5 MG TAB PO SCH (09:34)
[2018-05-22] MEDS: Aspirin 325 mg Enteric Coated Tablet PO SCH (09:34)
[2018-05-22] MEDS: Bumetanide 1 MG TAB PO SCH ×2 (09:35→16:27)
[2018-05-22] MEDS: Loratadine 10 MG TAB PO SCH (09:35)
[2018-05-22] MEDS: Mycophenolate 250 MG CAP PO SCH ×2 (09:37→20:38)
[2018-05-22] MEDS: Tacrolimus 0.5 MG CAP PO SCH ×2 (09:38→20:38)
[2018-05-22] MEDS: Allopurinol 300 MG TAB PO SCH (09:38)
[2018-05-22] MEDS: Vancomycin HCl 1.75 GM in Sodium Chloride 0.9% 500 ML IVPB SCH (09:42)
--- NOTE | 2018-05-22 14:13 | RAD ---
FLUOROSCOPIC GUIDED LUMBAR PUNCTURE: Date: 05/22/18 INDICATION:] Altered mental status. 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 TECHNIQUE: Informed consent was obtained. The patient was placed prone on the fluoroscopic table. The lower lumb ar spine was prepped and draped in the usual sterile fashion. Buffered 1% lidocaine was administered to the overlying subcutaneous tissues. Utilizing a slightly elongated 20 gauge spinal needle, attempt was made to access the interlaminar space at the right L2-3 level. Multiple attempts were made, whic h proved to be unsuccessful in accessing the intrathecal space. Site was then turned to the left L3-4 interlaminar space. Multiple attempts were obtained to gain access to the thecal sac that proved to be unsuccessful. Patient cooperation was somewhat limited due to uncontrolled movements/spasms. Total fluoroscopic time: 2.6 minutes. Total exposure: 2,410.7 mGy*cm^2. IMPRESSION: Unsuccessful fluoroscopic guided lumbar tap. Patient had difficulty in holding still and undergoing t he procedure. Will transfer this patient to the CT suite for a CT guided lumbar puncture. POS: ABDOUL
[2018-05-22 15:22] LABS: CSF Source CSF; Clarity Cloudy/Turbid (Clear); RBC Count - Manual 50500 /cumm (None Seen); Tube # 2; WBC/NonHematics Count - Manual 22 /cumm (0-5)
--- NOTE | 2018-05-22 15:23 | CT ---
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 TECHNIQUE: Preprocedure CT examination was performed for guidance purposes only. Site overlying the right L2-3 i nterlaminar space was marked. The site was prepped and draped in the usual sterile fashion. Buffered 1% lidocaine was administered to overlying subcutaneous tissues. Under CT fluoroscopic guidance, a 20 gauge spinal needle was guided down into the thecal sac. There was spontaneous returned of slightly blood-tinged, thickened, turbid appearing CSF fluid. 2 mL of CSF fluid was removed. The inner stylett e was replaced. The patient was moving throughout the examination and slightly uncooperative during e xamination. Therefore, no additional attempt was made to obtain more CSF fluid. The inner stylette wa s replaced and the needle was removed. Pressure was held at the sample site until hemostasis was obta ined. A bandage was placed overlying the lumbar puncture site. The patient was then transported to a rwest suffield and was seen moving all extremities during the examination and after the examination. The CSF fluid was then transported to pathology for further evaluation. IMPRESSION: Successful CT guided lumbar puncture with removal of 2 mL of slightly blood-tinged, turbid, and thick ened CSF fluid. POS: ABDOUL
[2018-05-22 15:45] LABS: Cell Count Non Hematic 2 %; Lymphocytes 24 %
[2018-05-22] MEDS: Sodium Bicarbonate 140 MEQ in Dextrose 5% in Water 1,000 ML IV SCH (15:46)
--- NOTE | 2018-05-22 17:53 | CON ---
DATE OF CONSULTATION: 05/22/2018 CONSULTING PHYSICIAN: [facility] Service. REASON FOR CONSULTATION: IMC placement. HISTORY OF PRESENT ILLNESS: This is a 68-year-old male who was admitted to the hospital by the Family Medicine Residency Service on 05/17. According to the patient's , he has had altered mental status since the time of admission. He has a history of metastatic prostate cancer. He has signs of possible SUPERVISOR COREMAKER involvement, but they have been unable to get a lumbar puncture despite an attempt. He has been evaluated by Neurology. I am not sure they have come up with a reason for his dramatically altered mental status. PAST MEDICAL HISTORY: 1. Metastatic prostate cancer. 2. Hyperlipidemia. 3. Gout. 4. Diabetes mellitus, type 2. 5. Chronic kidney disease, requiring kidney transplant. PAST SURGICAL HISTORY: Kidney transplant. FAMILY MEDICAL HISTORY: Remarkable for diabetes. SOCIAL HISTORY: Nonsmoker, nondrinker. 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 REVIEW OF SYSTEMS: Cannot be obtained as the patient has altered mental status. CURRENT INPATIENT MEDICATIONS: 1. Zytiga. 2. Tylenol. 3. Acyclovir. 4. Zyloprim. 5. Elavil. 6. Norvasc. 7. Ecotrin. 8. Lipitor. 9. Bumex. 10. Rocaltrol. 11. Cefepime. 12. Colchicine. 13. Digoxin. 14. Diltiazem. 15. Docusate. 16. Fentanyl. 17. Fosphenytoin. 18. Neurontin. 19. Heparin. 20. Hydralazine. 21. Glargine insulin. 22. Lispro insulin. 23. Lactated Ringer's at 125 mL/h. 24. Claritin. 25. Toprol-XL. 26. Singulair. 27. CellCept. 28. Zofran. 29. Protonix. 30. MiraLAX. 31. Prednisone. 32. Prograf. 33. Zanaflex. 34. Ultram. 35. Vancomycin. PHYSICAL EXAMINATION: VITAL SIGNS: Temperature is 96.8, pulse 93, blood pressure 136/77, and O2 saturation 98% on room air. GENERAL: The patient is grossly encephalopathic. He will follow with his eyes, but does not respond to commands and does not speak. HEENT: Remarkable for poor dentition. He does have positive gag reflex. NECK: Without adenopathy, JVD, or bruits. LUNGS: Coarse breath sounds without wheezing or rhonchi. CARDIAC: S1 and S2 regular without audible murmur. ABDOMEN: Somewhat distended. EXTREMITIES: No clubbing, cyanosis, or edema. LABORATORY DATA: White blood cell count 6.4, hematocrit 25.6, and platelet count 218 from 05/20/2018. INR 1.5, PTT is 56 from 05/20/2018. Blood gas, pH 7.45, pCO2 of 18, PO2 of 89% that is on room air. Sodium 136, potassium 4.3, chloride 110, CO2 of 13, BUN 28, creatinine 1.2, and glucose 336. Anion gap is 13. CMV titer was high. ASSESSMENT: The patient is presenting with profound altered mental status for reasons that are unclear. I suspect that he does have some type of central nervous system infection. Unfortunately, an lumbar puncture has been unsuccessful, so I do not think we know quite what we are treating. RECOMMENDATIONS: 1. Continue antibiotics and antivirals per Dr. Gerard. 2. Because of metabolic acidosis, I would go ahead and change his IV fluids to bicarbonate and D5W. 3. I would hold any type of medication that would lead to altered mental status. 4. His airway seems stable for the time being, but he could decompensate. I briefly discussed his code status with the patient's . She seems reluctant to put DNR on the chart. Again, the patient's prognosis is very poor, and code status needs to be continually readdressed. Job ID: [id number]
[2018-05-22] MEDS ORDERED: Dextrose 5% in Water 1,000 ML IV PRN (18:49)
[2018-05-22] MEDS ORDERED: Dextrose 50% Abboject 50 ML SYRINGE SLOW IVP PRN (18:49)
--- NOTE | 2018-05-22 20:20 | EKG ---
Test Reason : SEPSIS Blood Pressure : / mmHG Vent. Rate : 115 BPM Atrial Rate : 115 BPM P-R Int : 176 ms QRS Dur : 082 ms QT Int : 306 ms P-R-T Axes : 086 044 127 degrees QTc Int : 423 ms Sinus tachycardia T wave abnormality, consider lateral ischemia Abnormal ECG Confirmed by STANFORD ROMERO, OLIVER ([id number]), subeditor TOYA URIBE ([id number]) on 05/22/2018 8:19:54 PM Referred By: Confirmed By:OLIVER COYNE MD
[2018-05-22] MEDS: Pantoprazole 40 MG GRANULES PACKET PO SCH (20:38)
--- NOTE | 2018-05-22 21:18 | PRG ---
DATE OF SERVICE: 05/22/2018 BRIEF NOTE I did the calculation for the corrected dilantin level using the albumin level of 2.6 and dilantin level less than 1.8. This calculates to a corrected level of dilantin 2.3. PLAN: We will see what his dilantin level is tomorrow. A dilantin level and albumin level have been ordered for tomorrow. Note that he was loaded on Cerebyx today 1000 mg. Job ID: [id number]
--- NOTE | 2018-05-22 21:58 | PRG ---
DATE OF SERVICE: 05/22/2018 TYPE OF REPORT: Neurology followup note. HISTORY OF PRESENT ILLNESS: The patient is being followed up for altered mental status. His is present. She states that earlier in the day, he seem to open his eyes and focus. Now, later in the day he is not following any commands or opening his eyes. Yesterday, he was having some twitching movements. Today they are much less. He was started on Cerebyx yesterday because of epileptiform activity seen on his EEG. He went down today for lumbar puncture by Interventional Radiology. Not much liquid could be obtained, only about 2 mL, so just a cell count could be done. Protein and glucose could not be done. I am not sure if a PCR for herpes was able to be send or not. PHYSICAL EXAMINATION: GENERAL: He is extremely obtunded. He does not open his eyes or follow any commands. VITAL SIGNS: Temperature is 96.8, pulse 76, respiratory rate 27, blood pressure 125/68, and O2 sat was 97%. HEENT: Negative. Pupils are 2 mm and reactive to light. Note that he does try to squeeze his eye shut, when you try to open them to examine his pupils. EXTREMITIES: No edema. He is not following any commands with his extremities at this time and not moving them. DTRs are trace. Toes are downgoing. Reports show that lumbar puncture was performed by the radiologist Dr. Chen. Multiple attempts have to be made, which were not very successful. Possibly 1 or 2 mL were collected. Glucose and protein could not be performed. The cell count showed WBC of 22 and RBC of 50,500. There was not enough fluid to get . HIV in the blood has been negative. Note that Herpes type 1 and 2 were ordered and computer says that it was received in the lab; however, I am not sure if there was actually enough fluid to send or not, also there was no virus. IgG and IgM on the spinal fluid also says received in the lab, but I am not sure if there was enough fluid for that. Yesterday he had an EEG, which showed spike and wave activity in the temporal areas. This could be consistent with seizures and can be seen in herpes encephalitis, so he was placed on Cerebyx, which he is getting 100 mg IV q.8 hours. He was initially loaded on a 1000 mg today of Cerebyx. Keppra was not chosen because of his history of only one kidney after he received a kidney transplant. Other test show that there was a lumbar spine CT and that showed that the spinal tap needle was in good position but not very much could be obtained. This is a CT fluoroscopic guided for the lumbar puncture that was ordered by Radiology for guidance purposes only. The patient has also had bone scan, which demonstrated his known metastatic prostate cancer with up take in the skeleton involving the ribs, left calvarium, spine, sacrum, sternum, scapulae, pelvic bones, proximal femurs, and humerus, also increased uptake in the region of the clivus and that bone scan was reported to be stable since the bone scan done on 12/01/2017. There was a brain MRI that was done on 05/18. 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 Contrast was not given due to his renal status. MRI of the cervical spine was also done on 05/18/2018 without contrast. This showed diffuse low T1 marrow signal, which is non-specific but could be related to his metastatic prostate cancer. Dilantin level today is low at less than 1.8. Therapeutic is 10 to 20; however, he does have some low albumin level which on 05/20/2018, was pretty low at 2.6. Normal is 3.4 to 4.8. This could result in the Dilantin level being falsely low and he could actually have a therapeutic level of Dilantin as far as preventing seizures even with the Dilantin level being less than 10. He needs to have calculation of his actual dilantin level, which will be done. PLAN: We will get a followup Dilantin level tomorrow and albumin level. We will see what the calculated Dilantin level is and adjust Dilantin accordingly, I discussed all of this with the patient's , Dianna. Job ID: [id number]
[2018-05-23] MEDS: Sodium Bicarbonate 140 MEQ in Dextrose 5% in Water 1,000 ML IV SCH ×2 (00:26→23:55)
[2018-05-23] MEDS: Fosphenytoin Sodium 100 MG in Sodium Chloride 0.9% 50 ML IVPB SCH ×4 (00:27→23:55)
[2018-05-23] MEDS: HumaLOG 300 UNITS/3 ML VIAL SC PRN ×4 (03:23→21:11)
[2018-05-23] MEDS: Abiraterone Acetate [Zytiga] 1,000 MG PO SCH (05:23)
[2018-05-23 05:49] LABS: ALT (SGPT) 8 U/L (8-55); AST (SGOT) 16 U/L (5-34); Albumin 2.5 g/dL (3.4-4.8); Alkaline Phosphatase 126 U/L (40-150); Anion Gap 14 mmol/L (10-20); BUN (Urea Nitrogen) 31 mg/dL (8.4-25.7); Bilirubin, Total 0.2 mg/dL (0.2-1.2); Calc. Creatinine Clearance 102 mL/min (70-130); Carbon Dioxide 18 mmol/L (23-31); Chloride 111 mmol/L (98-107); Estimated GFR-MDRD 73; Globulin 3.2 g/dL (2.4-3.5); Glucose 324 mg/dL (80-115); Potassium 3.2 mmol/L (3.5-5.1); Protein, Total 5.7 g/dL (5.8-8.1); Sodium 140 mmol/L (136-145)
[2018-05-23 06:09] LABS: Dilantin 9.2 ug/mL (10.0-20.0)
--- NOTE | 2018-05-23 09:28 | PDOC.FM ---
- Subjective Subjective: Mild improvement in response this AM. When you call Mr. Joseph's name he will say , "yeah!". He also attempts to open up his eyes. He will mutter words that don' t necessarily make sense in the context of what is being said, but this is an improvement. He tries to follow some commands. He is breathing better today and clearing his secretions well. was by bedside and is really encouraged. She said he did well overnight. - Objective MAR Reviewed: Yes Vital Signs & Weight: Vital Signs (12 hours) Temp Pulse Resp BP Pulse Ox 05/23/18 07:38 98 05/23/18 07:21 98.9 F 84 18 114/49 L 97 05/23/18 05:44 98 05/23/18 04:00 97.2 F L 82 20 119/65 98 05/23/18 00:00 98.6 F 78 18 104/46 L 95 Weight Admit Weight 122.425 kg Weight 124.103 kg I&O: 05/22/18 05/23/18 05/24/18 06:59 06:59 06:59 Intake Total 1568 1208 Output Total 1800 975 Balance -232 233 Result Diagrams: 05/20/18 15:59 05/23/18 04:58 EKG Reviewed by me: Yes Radiology Reviewed by me: Yes <Cintia Jackson - Last Filed: 05/23/18 09:26> - Objective Vital Signs & Weight: Vital Signs (12 hours) Temp Pulse Pulse Resp BP BP BP 05/23/18 11:05 98.9 F 83 18 05/23/18 09:40 84 124/52 L 05/23/18 09:36 84 05/23/18 09:34 84 124/52 L 05/23/18 08:40 84 124/61 117/55 L 05/23/18 07:38 05/23/18 07:21 98.9 F 84 18 05/23/18 05:44 05/23/18 04:00 97.2 F L 82 20 BP BP Pulse Ox Pulse Ox 05/23/18 11:05 116/56 L 95 05/23/18 09:40 05/23/18 09:36 05/23/18 09:34 05/23/18 08:40 124/52 L 95 05/23/18 07:38 98 05/23/18 07:21 114/49 L 97 05/23/18 05:44 98 05/23/18 04:00 119/65 98 Weight Admit Weight 122.425 kg Weight 124.103 kg I&O: 05/22/18 05/23/18 05/24/18 06:59 06:59 06:59 Intake Total 1568 1208 Output Total 1800 975 Balance -232 233 Result Diagrams: 05/20/18 15:59 05/23/18 04:58 <Debra Richey - Last Filed: 05/23/18 15:37> Phys Exam - Physical Examination Minimally alert this AM. Responds "yeah" to questions. HEENT: moist MMs Respiratory: no wheezing, clear to auscultation bilateral Cardiovascular: RRR, no significant murmur Gastrointestinal: soft, positive bowel sounds Musculoskeletal: pulses present trace edema bilaterally GCS 10 Skin: cap refill <2 seconds <Cintia Jackson - Last Filed: 05/23/18 09:26> Dx/Plan (1) Acute respiratory failure with hypoxia Code(s): J96.01 - ACUTE RESPIRATORY FAILURE WITH HYPOXIA Status: Acute (2) SIRS (systemic inflammatory response syndrome) Code(s): R65.10 - SIRS OF NON-INFECTIOUS ORIGIN W/O ACUTE ORGAN DYSFUNCTION Status: Acute (3) Hyponatremia Code(s): E87.1 - HYPO-OSMOLALITY AND HYPONATREMIA Status: Acute (4) CAD (coronary artery disease) Code(s): I25.10 - ATHSCL HEART DISEASE OF [place] CORONARY ARTERY W/O ANG PCTRS Status: Chronic Qualifiers: Coronary Disease-Associated Artery/Lesion type: [place] artery Associated angina: without angina (5) COPD (chronic obstructive pulmonary disease) Status: Chronic Qualifiers: COPD type: COPD with acute exacerbation Qualified Code(s): J44.1 - Chronic obstructive pulmonary disease with (acute) exacerbation (6) GERD (gastroesophageal reflux disease) Code(s): K21.9 - GASTRO-ESOPHAGEAL REFLUX DISEASE WITHOUT ESOPHAGITIS Status: Chronic (7) Hypothyroid Code(s): E03.9 - HYPOTHYROIDISM, UNSPECIFIED Status: Chronic (8) Normocytic anemia Code(s): D64.9 - ANEMIA, UNSPECIFIED Status: Chronic (9) Prostate cancer Code(s): C61 - MALIGNANT NEOPLASM OF PROSTATE Status: Chronic (10) CKD (chronic kidney disease) stage 3, GFR 30-59 ml/min Status: Chronic (11) Hx of kidney transplant Status: Chronic (12) Hyperlipidemia Code(s): E78.5 - HYPERLIPIDEMIA, UNSPECIFIED Status: Chronic (13) IDDM (insulin dependent diabetes mellitus) Code(s): E11.9 - TYPE 2 DIABETES MELLITUS WITHOUT COMPLICATIONS; Z79.4 - DESIGN DRAFTSMAN (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 OF INSULIN Status: Chronic (14) Morbid obesity with BMI of 40.0-44.9, adult Code(s): E66.01 - MORBID (SEVERE) OBESITY DUE TO EXCESS CALORIES; Z68.41 - BODY MASS INDEX (BMI) 40.0-44.9, ADULT Status: Chronic (15) JUDI on CPAP Code(s): G47.33 - OBSTRUCTIVE SLEEP APNEA (ADULT) (PEDIATRIC) Status: Chronic (16) Tachycardia Code(s): R00.0 - TACHYCARDIA, UNSPECIFIED Status: Acute (17) Seizures Code(s): R56.9 - UNSPECIFIED CONVULSIONS Status: Acute (18) Adrenal insufficiency Code(s): E27.40 - UNSPECIFIED ADRENOCORTICAL INSUFFICIENCY Status: Suspected - Plan Plan: 68 year old male presents with encephalopathy SIRS, suspect underlying infection - Differentials at this time include encephalitis from infectious or autoimmune cause, meningitis, brain mets not identified on prior imaging - UA neg; urine culture shows <5000 CFU's - Continue vanc and cefepime for broad coverage spectrum of potential EDUCATION AND DEVELOPMENT MANAGER infection - Blood Cx NGTD - TTE showed EF 50-55% with grade II/III diastolic dysfunction. - Procalcitonin 0.58, 1.69, 0.99, 0.53 (reassuring progression) - Moustapha consulted; appreciate recs. - Repeat LP successful. Pending results. - Dr. 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 Fosphenytoin added as EEG showed evidence of epilpetiform activity. Temporal lobe epileptiform activity - EEG showed temporal lobe epileptiform activity bilaterally - Started on fosphenytoin - Initial phenytoin level subtherapeutic - Reloaded patient at recommendations of pharmacy, as the maintenance dose was started >8 hours after the loading dose. Patient reloaded with 1000 mg and restarted maintenance 8 hours later - Repeat level this AM 9.2; however, if you correct for the albumin, the phenytoin level is therapeutic at 11.7. Continue current dosing. - Neurology consulted; appreciate recs. Metabolic encephalopathy - Unknown etiology; likely infectious as patient had no acute changes on CT or brain and MRI brain that would suggest stroke. - Carotid doppler study limited; patient unable to move next to left; MRI w/wo contrast of cervical spine showed signal density likely related to mets. Bone scan was recommended - ESR elevated likely 2/2 metastatic prostate cancer - Previous echo in 2011 showed EF 65-70%; Repeat TTE showed EF 50-55% with grade I/III diastolic infection - Dr. Willson and Dr. Coon following from a distance - Blood cultures NGTD - Tacrolimus level nml - Resp viral panel negative - Dr. Gerard consulted; appreciate recs - Neurology consulted; appreciate recs - CMV in the past as evidenced by CMV IgG ab's but no recent infection ( negative IgM ab's), negative HIV, negative RPR - Additional EDUCATION AND DEVELOPMENT MANAGER studies pending - NG tube in place as patient unable to tolerate PO - Will start on tube feeds today. Tachycardia suspicious for atrial flutter vs. atrial tachycardia, resolved - EKG with ST elevations in II, III, AVF on 05/18 - Cardiology consulted. Appreciate recs. - EKG changes likely 2/2 tachycardia - Troponins negative, patient asymptomatic - No cardiac cath at this time per cards. - Patient on PO cardizem and digoxin Acute hypoxic respiratory failure - Requiring 2-3 L O2 intermittently. Of note, patient does use CPAP at night for JUDI. - CTA negative for PE - Continue to monitor O2 status Adrenal insufficiency - Likely 2/2 to recent severe illness - Cortisol this AM <1 - Will start patient on steroids Hypokalemia - Will replace potassium Right wrist pain - XR neg for fracture - Spica thumb splint placed, continue to monitor - Swelling has improved Acute on Chronic Kidney Disease, s/p kidney transplant - GFR 44, baseline GFR 60-82 - Stage 2 CKD - Cr 1.87, elevated from baseline --> 1.6 --> 1.2 - Unable to take immunosuppressive agents as patient NPO and medication cannot be crushed to take by NG tube Hyponatremia - Na 132, likely chronic as value at baseline from previous admissions DM - continue home medications - aggressive SS, ACHS accuchecks Hx of Prostate cancer w/ mets to spine - continue home medications - last radiation tx appx [address] Willson. - Patient has not yet started chemotherapy - Diffuse mets based on bone scan HLD - continue home medications Hx of Gout - continue home medications JUDI on CPAP - aware, will continue CPAP here DISPO: Stable. CODE: FULL VTE: heparin Dispo: Guarded. Maybe some mild improvements. Continue current course. Appreciate recommendations by all the specialists. Awaiting LP results. Will start patient on tube feeds today. <Cintia Jackson - Last Filed: 05/23/18 09:26> Attending Addendum - Attending Addendum Date/Time: 05/23/18 8928 I personally evaluated the patient and discussed the management with Dr. Jackson. I agree with the History, Examination, Assessment and Plan documented above with any addition or exceptions noted below. The patient was able to follow some commands overnight and answers "yeah" when you call his name. This is an improvement. Continuing anbitiotics. Seizure medication was adjusted yesterday. Recheck level today. <Debra Richey - Last Filed: 05/23/18 15:37>
[2018-05-23] MEDS: Insulin Glargine 52 UNITS in Pre-Filled Syringe 1 EACH SC SCH (09:31)
[2018-05-23] MEDS: Vancomycin HCl 1.75 GM in Sodium Chloride 0.9% 500 ML IVPB SCH (09:31)
[2018-05-23] MEDS: Mycophenolate 250 MG CAP PO SCH ×2 (09:33→21:12)
[2018-05-23] MEDS: Cefepime 2 GM in Sodium Chloride 0.9% 100 ML IVPB SCH (09:34)
[2018-05-23] MEDS: Calcitriol 0.25 MCG CAP PO SCH (09:35)
[2018-05-23] MEDS: Loratadine 10 MG TAB PO SCH (09:35)
[2018-05-23] MEDS: Montelukast Sodium 10 mg Tablet PO SCH (09:35)
[2018-05-23] MEDS: Atorvastatin Calcium 10 MG TAB PO SCH (09:35)
[2018-05-23] MEDS: Digoxin 0.125 MG TAB PO SCH (09:36)
[2018-05-23] MEDS: Aspirin 325 mg Enteric Coated Tablet PO SCH (09:39)
[2018-05-23] MEDS: predniSONE 5 MG TAB PO SCH (09:39)
[2018-05-23] MEDS: Amlodipine 5 MG TAB PO SCH (09:40)
[2018-05-23] MEDS: Docusate 100 MG CAP PO SCH ×2 (09:41→21:11)
[2018-05-23] MEDS: Heparin 5,000 UNITS/ML VIAL SC SCH ×3 (09:41→21:11)
[2018-05-23] MEDS: Tacrolimus 0.5 MG CAP PO SCH ×2 (09:41→21:12)
[2018-05-23] MEDS: Bumetanide 1 MG TAB PO SCH ×2 (09:42→15:56)
[2018-05-23] MEDS: Allopurinol 300 MG TAB PO SCH (09:42)
[2018-05-23] MEDS ORDERED: Potassium Chloride 40 MEQ in Premix Bag 1 BAG IVPB SCH (10:30)
[2018-05-23] MEDS: Pantoprazole 40 MG GRANULES PACKET PO SCH (21:12)
[2018-05-24] MEDS: HumaLOG 300 UNITS/3 ML VIAL SC PRN ×4 (00:41→23:02)
[2018-05-24] MEDS: Abiraterone Acetate [Zytiga] 1,000 MG PO SCH (05:37)
[2018-05-24 05:52] LABS: #Basophils 0.1 thou/uL (0.0-0.2); #Lymphocytes 0.9 thou/uL (1.20-3.40); #Monocytes 0.3 thou/uL (0.11-0.59); #Neutrophils 5.6 thou/uL (1.40-6.50); %Eosinophils 0.4 % (0.0-10.0); %Lymphocytes 12.9 % (21.0-51.0); %Monocytes 4.8 % (0.0-10.0); %Neutrophils 80.9 % (42.0-75.0); Hemoglobin 7.5 g/dL (14.0-18.0); Mean Corpuscular HGB CONC 32.8 g/dL (32.0-36.0); Mean Corpuscular Hemoglobin 29.3 pg (27.0-31.0); Mean Corpuscular Volume 89.2 fL (78.0-98.0); Mean Platelet Volume 7.1 fL (7.4-10.4); Platelet Count 269 thou/uL (130-400); RBC Distribution Width 17.8 % (11.5-14.5); Red Blood Cell (RBC) Count 2.56 mill/uL (4.70-6.10); White Blood Cell (WBC) Count 6.9 thou/uL (4.8-10.8)
[2018-05-24 06:05] LABS: ALT (SGPT) 12 U/L (8-55); AST (SGOT) 23 U/L (5-34); Albumin 2.8 g/dL (3.4-4.8); Alkaline Phosphatase 136 U/L (40-150); Anion Gap 13 mmol/L (10-20); BUN (Urea Nitrogen) 22 mg/dL (8.4-25.7); Bilirubin, Total 0.4 mg/dL (0.2-1.2); Calc. Creatinine Clearance 111 mL/min (70-130); Calcium 8.1 mg/dL (7.8-10.44); Carbon Dioxide 24 mmol/L (23-31); Chloride 108 mmol/L (98-107); Estimated GFR-MDRD 82; Globulin 3.4 g/dL (2.4-3.5); Glucose 326 mg/dL (80-115); Protein, Total 6.2 g/dL (5.8-8.1); Sodium 142 mmol/L (136-145)
[2018-05-24 06:15] LABS: Vancomycin, Trough 26.7 ug/mL
[2018-05-24 06:18] LABS: Potassium 2.9 mmol/L (3.5-5.1)
--- NOTE | 2018-05-24 07:44 | PDOC.FM ---
- Subjective Subjective: Patient awake and alert this AM. He did have an episode of emesis with his last NG tube feed. reports that yesterday morning he woke up and was awake. This AM, patient is awake and alert. He was able to tell me his name. He answered a few questions appropriately. He still has some confusion and will not make sense of most of his words and phrases. He was able to follow some commands this morning. He appears much improved from previous exams. - Objective MAR Reviewed: Yes Vital Signs & Weight: Vital Signs (12 hours) Temp Pulse Resp BP Pulse Ox 05/24/18 07:28 99.0 F 85 18 130/63 95 05/24/18 04:15 22 H 05/24/18 03:49 97.3 F L 85 30 H 142/67 H 95 05/24/18 00:00 99.0 F 85 20 137/69 96 Weight Admit Weight 122.425 kg Weight 121.194 kg I&O: 05/23/18 05/24/18 05/25/18 06:59 06:59 06:59 Intake Total 1208 1915 Output Total 975 4050 Balance 233 -2135 Result Diagrams: 05/24/18 05:20 05/24/18 05:20 EKG Reviewed by me: Yes Radiology Reviewed by me: Yes <Cintia Jackson - Last Filed: 05/24/18 08:04> - Objective Vital Signs & Weight: Vital Signs (12 hours) Temp Pulse Resp BP Pulse Ox 05/24/18 11:01 99.3 F 81 18 147/65 H 96 05/24/18 09:29 85 05/24/18 09:28 85 05/24/18 08:16 95 05/24/18 07:28 99.0 F 85 18 130/63 95 05/24/18 04:15 22 H 05/24/18 03:49 97.3 F L 85 30 H 142/67 H 95 Weight Admit Weight 122.425 kg Weight 121.194 kg I&O: 05/23/18 05/24/18 05/25/18 06:59 06:59 06:59 Intake Total 1208 1915 Output Total 975 4050 Balance 233 -2135 Result Diagrams: 05/24/18 05:20 05/24/18 05:20 <Debra Richey - Last Filed: 05/24/18 13:05> Phys Exam - Physical Examination Awake and alert. No acute distress. HEENT: moist MMs Neck: supple Respiratory: no wheezing, clear to auscultation bilateral Cardiovascular: RRR, no significant murmur Gastrointestinal: soft, non-tender, no distention, positive bowel sounds Musculoskeletal: pulses present trace edema bilaterally GCS 13 Deviation from normal: Oriented to person Skin: cap refill <2 seconds Deviation from normal: Right arm in thumb spica, swelling if hand improved <Jono Jacksonyn - Last Filed: 05/24/18 08:04> Dx/Plan (1) Acute respiratory failure with hypoxia Code(s): J96.01 - ACUTE RESPIRATORY FAILURE WITH HYPOXIA Status: Acute (2) SIRS (systemic inflammatory response syndrome) Code(s): R65.10 - SIRS OF NON-INFECTIOUS ORIGIN W/O ACUTE ORGAN DYSFUNCTION Status: Acute (3) Hyponatremia Code(s): E87.1 - HYPO-OSMOLALITY AND HYPONATREMIA Status: Acute (4) CAD (coronary artery disease) Code(s): I25.10 - ATHSCL HEART DISEASE OF [place] CORONARY ARTERY W/O ANG PCTRS Status: Chronic Qualifiers: Coronary Disease-Associated Artery/Lesion type: [place] artery Associated angina: without angina (5) COPD (chronic obstructive pulmonary disease) Status: Chronic Qualifiers: COPD type: COPD with acute exacerbation Qualified Code(s): J44.1 - Chronic obstructive pulmonary disease with (acute) exacerbation (6) GERD (gastroesophageal reflux disease) Code(s): K21.9 - GASTRO-ESOPHAGEAL REFLUX DISEASE WITHOUT ESOPHAGITIS Status: Chronic (7) Hypothyroid Code(s): E03.9 - HYPOTHYROIDISM, UNSPECIFIED Status: Chronic (8) Normocytic anemia Code(s): D64.9 - ANEMIA, UNSPECIFIED Status: Chronic (9) Prostate cancer Code(s): C61 - MALIGNANT NEOPLASM OF PROSTATE Status: Chronic (10) CKD (chronic kidney disease) stage 3, GFR 30-59 ml/min Status: Chronic (11) Hx of kidney transplant Status: Chronic (12) Hyperlipidemia Code(s): E78.5 - HYPERLIPIDEMIA, UNSPECIFIED Status: Chronic (13) IDDM (insulin dependent diabetes mellitus) Code(s): E11.9 - TYPE 2 DIABETES MELLITUS WITHOUT COMPLICATIONS; Z79.4 - [place] (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 OF INSULIN Status: Chronic (14) Morbid obesity with BMI of 40.0-44.9, adult Code(s): E66.01 - MORBID (SEVERE) OBESITY DUE TO EXCESS CALORIES; Z68.41 - BODY MASS INDEX (BMI) 40.0-44.9, ADULT Status: Chronic (15) JUDI on CPAP Code(s): G47.33 - OBSTRUCTIVE SLEEP APNEA (ADULT) (PEDIATRIC) Status: Chronic (16) Tachycardia Code(s): R00.0 - TACHYCARDIA, UNSPECIFIED Status: Acute (17) Seizures Code(s): R56.9 - UNSPECIFIED CONVULSIONS Status: Acute (18) Adrenal insufficiency Code(s): E27.40 - UNSPECIFIED ADRENOCORTICAL INSUFFICIENCY Status: Suspected - Plan Plan: 68 year old male presents with encephalopathy SIRS, suspect underlying infection - Differentials at this time include encephalitis from infectious or autoimmune cause, meningitis, brain mets not identified on prior imaging - UA neg; urine culture shows <5000 CFU's - Continue vanc and cefepime for broad coverage spectrum of potential SWAGE TENDER infection - Blood Cx NGTD - TTE showed EF 50-55% with grade II/III diastolic dysfunction. - Procalcitonin 0.58, 1.69, 0.99, 0.53 (reassuring progression) - Moustapha consulted; appreciate recs. - Repeat LP successful. Pending results. - Dr. 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 Fosphenytoin added as EEG showed evidence of epilpetiform activity. Temporal lobe epileptiform activity - EEG showed temporal lobe epileptiform activity bilaterally - Started on fosphenytoin - Initial phenytoin level subtherapeutic - Reloaded patient at recommendations of pharmacy, as the maintenance dose was started >8 hours after the loading dose. Patient reloaded with 1000 mg and restarted maintenance 8 hours later, - Repeat level yesterday 9.2; however, if you correct for the albumin, the phenytoin level is therapeutic at 11.7. Repeat dilantin level this AM 9.9. When corrected for albumin, level is 11.4, which is still in therapeutic range. Continue current dosing. - Neurology consulted; appreciate recs. Metabolic encephalopathy - Unknown etiology; likely infectious as patient had no acute changes on CT or brain and MRI brain that would suggest stroke. - Carotid doppler study limited; patient unable to move next to left; MRI w/wo contrast of cervical spine showed signal density likely related to mets. Bone scan was recommended - ESR elevated likely 2/2 metastatic prostate cancer - Previous echo in 2011 showed EF 65-70%; Repeat TTE showed EF 50-55% with grade I/III diastolic infection - Dr. Willson and Dr. Coon following from a distance - Blood cultures NGTD - Tacrolimus level nml - Resp viral panel negative - Dr. Gerard consulted; appreciate recs - Neurology consulted; appreciate recs - CMV in the past as evidenced by CMV IgG ab's but no recent infection ( negative IgM ab's), negative HIV, negative RPR - Additional SWAGE TENDER studies pending, some studies not performed and unsure why. Will contact lab. - NG tube in place as patient unable to tolerate PO - Tube feeds started yesterday. Will consult dietary to assist with feeds. Tachycardia suspicious for atrial flutter vs. atrial tachycardia, resolved - EKG with ST elevations in II, III, AVF on 05/18 - Cardiology consulted. Appreciate recs. - EKG changes likely 2/2 tachycardia - Troponins negative, patient asymptomatic - No cardiac cath at this time per cards. - Patient on PO cardizem and digoxin Acute hypoxic respiratory failure - Requiring 2-3 L O2 intermittently. Of note, patient does use CPAP at night for JUDI. - CTA negative for PE - Continue to monitor O2 status - Patient has been satting fine on RA for last several days. Adrenal insufficiency - Likely 2/2 to recent severe illness - Cortisol yesterday in AM <1 - Patient started on steroids - Will check cortisol level tomorrow AM Hypokalemia - Will replace potassium - Check Mg as potential cause of low potassium Right wrist pain - XR neg for fracture - Spica thumb splint placed, continue to monitor - Swelling has improved Acute on Chronic Kidney Disease, s/p kidney transplant - GFR 44, baseline GFR 60-82 - Stage 2 CKD - Cr 1.87, elevated from baseline --> 1.6 --> 1.2 - Unable to take immunosuppressive agents as patient NPO and medication cannot be crushed to take by NG tube Protein calorie malnutrition - Albumin low as 2.3-2.8 - Pre-albumin low at 10 - Dietary consulted to assist with feeds Anemia - Will run iron studies to further evaluate - B12 and folate high rather than low, so unlikely cause - Continue to monitor; transfuse if less than 7 Hyponatremia - Na 132, likely chronic as value at baseline from previous admissions DM - continue home medications - aggressive SS, ACHS accuchecks - will ensure patient receiving insulin as he still has significantly elevated BG Hx of Prostate cancer w/ mets to spine - continue home medications - last radiation tx appx [address] Willson. - Patient has not yet started chemotherapy - Diffuse mets based on bone scan HLD - continue home medications Hx of Gout - continue home medications JUDI on CPAP - aware. DISPO: Stable. CODE: FULL VTE: heparin Dispo: Guarded. Patient alert and awake this AM. Able to tell me his name and follow some commands. Improvement from prior exams. Awaiting LP results. Patient stable at this time. Appreciate recs from specialists. <Cintia Jackson - Last Filed: 05/24/18 08:04> Attending Addendum - Attending Addendum Date/Time: 05/24/18 1304 I personally evaluated the patient and discussed the management with Dr. Jackson. I agree with the History, Examination, Assessment and Plan documented above with any addition or exceptions noted below. Patient is hypokalemic this mornning. The patient is more awake and alert, he is able to say a few sentences though they do not completely make sense. Overall this is an improvement. Will continue tube feeds until he is a little better. Increase basal insulin for better glucose control. <Debra Richey - Last Filed: 05/24/18 13:05>
--- NOTE | 2018-05-24 07:49 | PRG ---
DATE OF SERVICE: 05/23/2018 SUBJECTIVE: The patient is better. He is actually able to talk some to me today, whereas he was totally noncommunicative yesterday. OBJECTIVE: VITAL SIGNS: On exam; temperature 98.9, pulse 83, respirations 18, O2 saturation 95% on room air, and blood pressure 116/56. HEENT: Pupils reactive. Sclerae intact. Oropharynx clear. NECK: No JVD. CHEST: Clear. CARDIAC: S1 and S2. Regular. ABDOMEN: Soft. EXTREMITIES: No edema. LABORATORY DATA: We are awaiting cultures from his spinal tap yesterday. The fluid itself showed some elevated red blood cells, some lymphocytes. Other laboratory data today includes a sodium of 140, potassium 3.3, BUN 31, creatinine 1.2, and glucose 324. ASSESSMENT: 1. Encephalopathy, which has improved. 2. Status post renal transplant. RECOMMENDATION: 1. 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 2. Deferred to Dr. Gerard on adding further antibiotic therapy. 3. His airway does not appear to be compromised at this time. 4. I would suggest more aggressive insulin regimen. Job ID: [id number]
--- NOTE | 2018-05-24 07:50 | PRG ---
DATE OF SERVICE: 05/23/2018 SUBJECTIVE: Mr. Joseph is much more alert. He recognized me and even remembers why I saw him a few years ago. He knows where he is. A repeat fluoroscopy-guided spinal tap was attempted but was not successful again. OBJECTIVE: VITAL SIGNS: His T-max was 98.9. Other vital signs are not remarkable. GENERAL: He is awake. He is able to establish eye contact. His eye movements are conjugate. He has a little bit of trouble in looking upwards with his gaze. LUNGS: Symmetric air entry. HEART: S1 and S2. No S3 or S4. ABDOMEN: Soft, not distended. : He has an indwelling Schaeffer catheter. EXTREMITIES: He is able to move extremities, but seems to be diffusely weak. LABORATORY DATA: White cell count 6.4, hemoglobin 8.2, platelets 280. Sodium 140, creatinine 1.2 with normal liver profile. Albumin 2.5. The CSF from May 22 that showed WBCs of 22 and 50,000 RBCs. There is a pathology review that is pending. It is not clear that they had enough sample to submit all the other assays requested. We will have to request re-submission of the assays for his serum cytomegalovirus PCR as well as histoplasma antigen in urine. He is currently receiving acyclovir adjusted for renal function and he is on cefepime as well. ASSESSMENT: 1. Renal transplant, on immunosuppressive medications. 2. Metastatic prostate cancer. 3. Mental status changes with possible encephalitis with difficulties in obtaining CSF sample to complete the workup. DISCUSSION: At this point in time, we will complete the treatment with acyclovir. The end date of therapy will be in about seven days. Unfortunately, we did not have enough sample to proceed with the opportunistic infection studies in the spinal fluid, looks like there was enough CSF for [place] PCR. They have submitted herpes simplex IgG and IgM, but that is not helpful for diagnosis of herpes simplex encephalitis and we will ask the lab to resubmit that and make it PCR instead. We will go ahead and discontinue the cefepime. Job ID: [id number]
--- NOTE | 2018-05-24 07:51 | PRG ---
DATE OF SERVICE: 05/23/2018 TYPE OF REPORT: Neurology Followup PRESENT ILLNESS: The patient is being followed up for altered mental status. At this time, he is a bit more awake than he was yesterday. He is not following any commands. He moves all extremities. He does open his eyes to voice and he looks at the examiner, and seems to focus on the examiner, but he is not following commands. There are some repetitive movements of his mouth, difficult to say if these are seizures. There is an occasional twitch of his left shoulder. OBJECTIVE: NEUROLOGICAL: He is more awake, not following commands, but seems to focus on the examiner. Motor: He moves all extremities. He did seem to move his feet to command one time. Sensation is grossly intact. LUNGS: Clear. HEART: No murmurs or gallops. ABDOMEN: Benign. EXTREMITIES: No edema seen. VITAL SIGNS: Showed a temperature earlier today at 11:05 a.m. of 98.9; at 4:18 p.m., it was 98.7; pulse 91, respiratory rate 16, O2 saturation 95, blood pressure 134/66. LABORATORY DATA: As mentioned yesterday, the spinal fluid showed 22 wbc's and 50,500 rbc's. Not much spinal fluid could be taken. The Dilantin level today is 9.2 and the albumin level is low at 2.5. We will calculate and see if that puts the Dilantin in the therapeutic range, but probably it does since the albumin level is low. Some serological tests showed HIV is negative. Syphilis, IgG and IgM antibodies were nonreactive. Albumin today was 2.5. BUN 31. Estimated GFR was 73. Note that he has only one kidney, having received a transplant years ago. Sodium is 140. MEDICATIONS: He is on: 1. Acyclovir. 2. Lipitor. 3. Colchicine for gout. 4. Allopurinol. 5. Digoxin. 6. Cardizem. 7. Colace. 8. Fosphenytoin 100 mg IV q.8 hours. Fosphenytoin was selected for seizures rather than Keppra due to his only having one kidney. LABORATORY DATA: His EEG did show some [id number] activity in the temporal areas. He is also on vancomycin. Review of his brain imaging did show MRI of the brain that was done without contrast due to concern regarding his one kidney. 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 No contrast was given. Note that the patient has a history of prostate cancer, which has metastasized to bones. Note that he had been trying to make some vocalizations earlier today. He did say yeah a couple of times. PLAN: We will continue with the Dilantin and Cerebyx, and monitor the albumin levels and Dilantin levels and do necessary corrected Dilantin levels depending on the albumin. Hopefully, there was enough spinal fluid to get the herpes PCR, but not much could be collected. He does seem to be a bit better. Job ID: [id number]
[2018-05-24 08:35] LABS: Phosphorus Less than 1.0 mg/dL (2.3-4.7)
[2018-05-24] MEDS ORDERED: Potassium Chloride 40 MEQ in Premix Bag 1 BAG IVPB SCH (08:45)
[2018-05-24] MEDS ORDERED: Magnesium Sulfate 4 GM in Sodium Chloride 0.9% 250 ML 250 ML IVPB SCH (09:00)
[2018-05-24] MEDS: Fosphenytoin Sodium 100 MG in Sodium Chloride 0.9% 50 ML IVPB SCH ×2 (09:28→16:51)
[2018-05-24] MEDS: Docusate 100 MG CAP PO SCH ×2 (09:28→22:04)
[2018-05-24] MEDS: predniSONE 5 MG TAB PO SCH (09:28)
[2018-05-24] MEDS: Aspirin 325 mg Enteric Coated Tablet PO SCH (09:28)
[2018-05-24] MEDS: Digoxin 0.125 MG TAB PO SCH (09:29)
[2018-05-24] MEDS: Loratadine 10 MG TAB PO SCH (09:29)
[2018-05-24] MEDS: Amlodipine 5 MG TAB PO SCH (09:29)
[2018-05-24] MEDS: Atorvastatin Calcium 10 MG TAB PO SCH (09:29)
[2018-05-24] MEDS: Calcitriol 0.25 MCG CAP PO SCH (09:30)
[2018-05-24] MEDS: Montelukast Sodium 10 mg Tablet PO SCH (09:30)
[2018-05-24] MEDS: Allopurinol 300 MG TAB PO SCH (09:31)
[2018-05-24] MEDS: Tacrolimus 0.5 MG CAP PO SCH ×2 (09:31→22:04)
[2018-05-24] MEDS: Bumetanide 1 MG TAB PO SCH ×2 (09:31→17:08)
[2018-05-24] MEDS: Mycophenolate 250 MG CAP PO SCH ×2 (09:31→22:04)
[2018-05-24] MEDS: Heparin 5,000 UNITS/ML VIAL SC SCH ×3 (09:33→22:05)
[2018-05-24] MEDS: Insulin Glargine 52 UNITS in Pre-Filled Syringe 1 EACH SC SCH (09:33)
--- NOTE | 2018-05-24 10:06 | PRG ---
DATE OF SERVICE: 05/24/2018 SUBJECTIVE: Mr. Joseph is awake. He is conversant. He still has some expressive aphasia. OBJECTIVE: VITAL SIGNS: Temperature 99.0, pulse 85, respirations 18, O2 sat 95% on 2 L, blood pressure 130/63. HEENT: Unremarkable. NECK: No JVD. He has a left NG tube in place. Oropharynx is clear. LUNGS: Clear. CARDIAC: S1 and S2. Regular. ABDOMEN: Soft. EXTREMITIES: No edema. LABORATORY DATA: White blood cell count 6.9, hematocrit 22.8, platelet count 269. Sodium 142, potassium 2.9, chloride 108, CO2 of 24, BUN 22, creatinine 1.0, glucose 326. Phosphorus level was less than 1. Magnesium 1.1. ASSESSMENT: 1. Severe electrolyte depletion. 2. 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 PLAN: 1. Replace electrolytes. 2. Can be moved to the floor at any time. Job ID: [id number]
[2018-05-24 10:14] LABS: Iron 108 ug/dL (65-175); Iron Binding Capacity, Total 145 mcg/dL (261-462)
[2018-05-24] MEDS: Vancomycin HCl 1.75 GM in Sodium Chloride 0.9% 500 ML IVPB SCH (10:56)
[2018-05-24] MEDS ORDERED: Magnesium 2 GM/50 ML 2 GM in Premix Bag 1 BAG IVPB SCH (11:45)
[2018-05-24] MEDS ORDERED: Vancomycin HCl 1.75 GM in Sodium Chloride 0.9% 500 ML IVPB SCH (12:00)
[2018-05-24 18:15] LABS: Anion Gap 13 mmol/L (10-20); BUN (Urea Nitrogen) 18 mg/dL (8.4-25.7); Calc. Creatinine Clearance 124 mL/min (70-130); Calcium 7.7 mg/dL (7.8-10.44); Carbon Dioxide 25 mmol/L (23-31); Chloride 107 mmol/L (98-107); Estimated GFR-MDRD Greater than 90; Glucose 327 mg/dL (80-115); Magnesium 1.9 mg/dL (1.6-2.6); Phosphorus 1.6 mg/dL (2.3-4.7); Potassium 3.1 mmol/L (3.5-5.1); Sodium 142 mmol/L (136-145)
[2018-05-24] MEDS: Pantoprazole 40 MG GRANULES PACKET PO SCH (22:04)
[2018-05-24] MEDS: Sodium Bicarbonate 140 MEQ in Dextrose 5% in Water 1,000 ML IV SCH (22:39)
[2018-05-25] MEDS: Fosphenytoin Sodium 100 MG in Sodium Chloride 0.9% 50 ML IVPB SCH ×3 (00:17→15:44)
[2018-05-25] MEDS: HumaLOG 300 UNITS/3 ML VIAL SC PRN ×5 (05:18→21:08)
[2018-05-25] MEDS: Abiraterone Acetate [Zytiga] 1,000 MG PO SCH (05:48)
[2018-05-25 05:56] LABS: #Monocytes 0.4 thou/uL (0.11-0.59); #Neutrophils 5.1 thou/uL (1.40-6.50); %Basophils 0.2 % (0.0-1.0); %Eosinophils 0.5 % (0.0-10.0); %Lymphocytes 15.8 % (21.0-51.0); %Monocytes 5.6 % (0.0-10.0); %Neutrophils 77.9 % (42.0-75.0); Hemoglobin 7.2 g/dL (14.0-18.0); Mean Corpuscular HGB CONC 32.8 g/dL (32.0-36.0); Mean Corpuscular Hemoglobin 29.5 pg (27.0-31.0); Mean Corpuscular Volume 90.1 fL (78.0-98.0); Platelet Count 257 thou/uL (130-400); RBC Distribution Width 17.8 % (11.5-14.5); Red Blood Cell (RBC) Count 2.45 mill/uL (4.70-6.10); White Blood Cell (WBC) Count 6.5 thou/uL (4.8-10.8)
[2018-05-25 06:07] LABS: ALT (SGPT) 13 U/L (8-55); AST (SGOT) 21 U/L (5-34); Albumin 2.9 g/dL (3.4-4.8); Alkaline Phosphatase 127 U/L (40-150); Anion Gap 13 mmol/L (10-20); BUN (Urea Nitrogen) 17 mg/dL (8.4-25.7); Bilirubin, Total 0.3 mg/dL (0.2-1.2); Calc. Creatinine Clearance 131 mL/min (70-130); Calcium 7.3 mg/dL (7.8-10.44); Carbon Dioxide 27 mmol/L (23-31); Chloride 105 mmol/L (98-107); Estimated GFR-MDRD Greater than 90; Glucose 341 mg/dL (80-115); Magnesium 1.3 mg/dL (1.6-2.6); Protein, Total 5.9 g/dL (5.8-8.1); Sodium 142 mmol/L (136-145)
[2018-05-25 06:10] LABS: Phosphorus 1.8 mg/dL (2.3-4.7)
[2018-05-25] MEDS ORDERED: Magnesium Sulfate 4 GM in Sodium Chloride 0.9% 250 ML 250 ML IVPB SCH (07:30)
--- NOTE | 2018-05-25 07:43 | PDOC.FM ---
- Subjective Subjective: Patient awake and alert this AM. No significant overnight events. He did have one episode of emesis at 5:00 AM this morning. His tube feeds have been held since yesterday due to an episode of emesis yesterday morning. Patient unable to accurately tell me his name, place, or time this AM. However, he was more conversational. The said that yesterday, he just wanted to go home. Discussed placement with patient's , and she agrees that a rehab facility would be most beneficial. - Objective MAR Reviewed: Yes Vital Signs & Weight: Vital Signs (12 hours) Temp Pulse Resp BP Pulse Ox 05/25/18 07:36 97.0 F L 81 17 137/64 96 05/25/18 03:59 97.4 F L 80 20 141/67 H 94 L 05/25/18 01:32 95 05/24/18 23:48 97.8 F 77 24 H 140/62 95 05/24/18 19:44 98.3 F 80 24 H 133/64 94 L Weight Admit Weight 122.425 kg Weight 120.826 kg I&O: 05/24/18 05/25/18 05/26/18 06:59 06:59 06:59 Intake Total 1915 3534.5 Output Total 4050 4000 Balance -2135 -465.5 Result Diagrams: 05/25/18 05:20 05/25/18 05:20 EKG Reviewed by me: Yes Radiology Reviewed by me: Yes <Cintia Jackson - Last Filed: 05/25/18 07:50> - Objective Vital Signs & Weight: Vital Signs (12 hours) Temp Pulse Resp BP Pulse Ox 05/25/18 11:39 96.9 F L 77 21 H 134/69 97 05/25/18 08:15 81 05/25/18 07:36 97.0 F L 81 17 137/64 96 05/25/18 03:59 97.4 F L 80 20 141/67 H 94 L Weight Admit Weight 122.425 kg Weight 120.826 kg I&O: 05/24/18 05/25/18 05/26/18 06:59 06:59 06:59 Intake Total 1915 3534.5 Output Total 4050 4000 Balance -2135 -465.5 Result Diagrams: 05/25/18 05:20 05/25/18 05:20 <Debra Richey - Last Filed: 05/25/18 15:23> Phys Exam - Physical Examination Awake and alert. Oriented x0 this AM. HEENT: PERRLA, moist MMs Respiratory: no wheezing, clear to auscultation bilateral Cardiovascular: RRR, no significant murmur Gastrointestinal: soft, non-tender, positive bowel sounds Musculoskeletal: pulses present trace edema Neurological: non-focal Deviation from normal: A&O x0 this AM. GCS 14 Skin: cap refill <2 seconds <Cintia Jackson - Last Filed: 05/25/18 07:50> Dx/Plan (1) Acute respiratory failure with hypoxia Code(s): J96.01 - ACUTE RESPIRATORY FAILURE WITH HYPOXIA Status: Acute (2) SIRS (systemic inflammatory response syndrome) Code(s): R65.10 - SIRS OF NON-INFECTIOUS ORIGIN W/O ACUTE ORGAN DYSFUNCTION Status: Acute (3) Hyponatremia Code(s): E87.1 - HYPO-OSMOLALITY AND HYPONATREMIA Status: Acute (4) CAD (coronary artery disease) Code(s): I25.10 - ATHSCL HEART DISEASE OF [place] CORONARY ARTERY W/O ANG PCTRS Status: Chronic Qualifiers: Coronary Disease-Associated Artery/Lesion type: [place] artery Associated angina: without angina (5) COPD (chronic obstructive pulmonary disease) Status: Chronic Qualifiers: COPD type: COPD with acute exacerbation Qualified Code(s): J44.1 - Chronic obstructive pulmonary disease with (acute) exacerbation (6) GERD (gastroesophageal reflux disease) Code(s): K21.9 - GASTRO-ESOPHAGEAL REFLUX DISEASE WITHOUT ESOPHAGITIS Status: Chronic (7) Hypothyroid Code(s): E03.9 - HYPOTHYROIDISM, UNSPECIFIED Status: Chronic (8) Normocytic anemia Code(s): D64.9 - ANEMIA, UNSPECIFIED Status: Chronic (9) Prostate cancer Code(s): C61 - MALIGNANT NEOPLASM OF PROSTATE Status: Chronic (10) CKD (chronic kidney disease) stage 3, GFR 30-59 ml/min Status: Chronic (11) Hx of kidney transplant Status: Chronic (12) Hyperlipidemia Code(s): E78.5 - HYPERLIPIDEMIA, UNSPECIFIED Status: Chronic (13) IDDM (insulin dependent diabetes mellitus) Code(s): E11.9 - TYPE 2 DIABETES MELLITUS WITHOUT COMPLICATIONS; Z79.4 - HORSEBACK EXCAVATOR (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 OF INSULIN Status: Chronic (14) Morbid obesity with BMI of 40.0-44.9, adult Code(s): E66.01 - MORBID (SEVERE) OBESITY DUE TO EXCESS CALORIES; Z68.41 - BODY MASS INDEX (BMI) 40.0-44.9, ADULT Status: Chronic (15) JUDI on CPAP Code(s): G47.33 - OBSTRUCTIVE SLEEP APNEA (ADULT) (PEDIATRIC) Status: Chronic (16) Tachycardia Code(s): R00.0 - TACHYCARDIA, UNSPECIFIED Status: Acute (17) Seizures Code(s): R56.9 - UNSPECIFIED CONVULSIONS Status: Acute (18) Adrenal insufficiency Code(s): E27.40 - UNSPECIFIED ADRENOCORTICAL INSUFFICIENCY Status: Suspected - Plan Plan: 68 year old male presents with encephalopathy 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 - Moustapha consulted; appreciate recs. - Dr. 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 Continue current dose. - Neurology consulted; appreciate recs. Metabolic encephalopathy 2/2 above - see above plans Tachycardia suspicious for atrial flutter vs. atrial tachycardia, resolved - EKG with ST elevations in II, III, AVF on 05/18 - Cardiology consulted. Appreciate recs. - EKG changes likely 2/2 tachycardia - Troponins negative, patient asymptomatic - No cardiac cath at this time per cards. - Patient on PO cardizem and digoxin Acute hypoxic respiratory failure - Requiring 2-3 L O2 intermittently. Of note, patient does use CPAP at night for JUDI. - CTA negative for PE - Continue to monitor O2 status - Patient has been satting fine on RA for last several days. Adrenal insufficiency - Likely 2/2 to recent severe illness - Cortisol yesterday in AM <1 - Patient started on steroids - AM cortisol level pending Hypokalemia - Will replace potassium - Mg contributing to low K - Replace electrolytes Hypomagnesemia - Replace electrolytes Hypophosphatemia - Replace electrolytes Right wrist pain - XR neg for fracture - Spica thumb splint placed, continue to monitor - Swelling has improved Acute on Chronic Kidney Disease, s/p kidney transplant - GFR 44, baseline GFR 60-82 - Stage 2 CKD - Cr 1.87, elevated from baseline --> 1.6 --> 1.2 Protein calorie malnutrition - Albumin low as 2.3-2.8 - Pre-albumin low at 10 - Dietary consulted to assist with feeds - Patient on NG tubes but has not been tolerating well. Dietary to assist. Serial bedside swallows. Attempt to wean off fluids once tolerating other form Anemia - Iron studies mixed - B12 and folate high rather than low, so unlikely cause - Continue to monitor; transfuse if less than 7 - Likely 2/2 to bone mets; will check retic count Hyponatremia - Na 132, likely chronic as value at baseline from previous admissions DM - continue home medications - aggressive SS, ACHS accuchecks - AM insulin increased; continue to adjust as necessary Hx of Prostate cancer w/ mets to spine - continue home medications - last radiation tx appx [address] Willson. - Patient has not yet started chemotherapy - Diffuse mets based on bone scan HLD - continue home medications Hx of Gout - continue home medications JUDI on CPAP - aware. DISPO: Stable. CODE: FULL VTE: heparin Dispo: Guarded. Patient stable for transition to telemetry floor. Alert and awake this AM. Continues to make slow improvement. Continue to replete electrolytes. Prepare dispo planning in upcoming days. Plan is potentially to go to rehab. Will continue to discuss with family. <Cintia Jackson - Last Filed: 05/25/18 07:50> Attending Addendum - Attending Addendum Date/Time: 05/25/18 1400 I personally evaluated the patient and discussed the management with Dr. Jackson. I agree with the History, Examination, Assessment and Plan documented above with any addition or exceptions noted below. The patient is more alert today and is speaking more though he is still confused. Pt failed bedside swallow eval yesterday. Trying to restart tube feeds. Continue acyclovir. <Debra Richey - Last Filed: 05/25/18 15:23>
[2018-05-25] MEDS: Heparin 5,000 UNITS/ML VIAL SC SCH ×3 (08:14→21:08)
[2018-05-25] MEDS: Atorvastatin Calcium 10 MG TAB PO SCH (08:14)
[2018-05-25] MEDS: Calcitriol 0.25 MCG CAP PO SCH (08:14)
[2018-05-25] MEDS: Docusate 100 MG CAP PO SCH ×2 (08:14→21:07)
[2018-05-25] MEDS: Aspirin 325 mg Enteric Coated Tablet PO SCH (08:14)
[2018-05-25] MEDS: Loratadine 10 MG TAB PO SCH (08:14)
[2018-05-25] MEDS: Montelukast Sodium 10 mg Tablet PO SCH (08:15)
[2018-05-25] MEDS: Amlodipine 5 MG TAB PO SCH (08:15)
[2018-05-25] MEDS: Digoxin 0.125 MG TAB PO SCH (08:15)
[2018-05-25] MEDS: Bumetanide 1 MG TAB PO SCH ×2 (08:16→15:43)
[2018-05-25] MEDS: Mycophenolate 250 MG CAP PO SCH ×2 (08:47→21:07)
[2018-05-25] MEDS: Allopurinol 300 MG TAB PO SCH (08:48)
[2018-05-25] MEDS: Tacrolimus 0.5 MG CAP PO SCH ×2 (08:48→21:07)
[2018-05-25] MEDS ORDERED: Insulin Glargine 64 UNITS in Pre-Filled Syringe 1 EACH SC SCH (09:00)
[2018-05-25] MEDS ORDERED: Vancomycin HCl 1.25 GM in Sodium Chloride 0.9% 250 ML 250 ML IVPB SCH (10:00)
--- NOTE | 2018-05-25 10:30 | PRG ---
DATE OF SERVICE: 05/25/2018 SUBJECTIVE: He is doing better. He is more conversant. OBJECTIVE: VITAL SIGNS: On exam, temperature 97.0, pulse 81, respirations 17, O2 saturation 96% on room air, blood pressure 137/64. HEENT: Unremarkable except for a left naris NG tube in place. Oropharynx clear. NECK: No JVD. CHEST: Clear. CARDIAC: S1 and S2, regular. ABDOMEN: Obese, soft, nontender. EXTREMITIES: No edema. LABORATORY DATA: White blood cell count 6.5, hematocrit 22.1, platelet count 257. Sodium 142, potassium 3.0, chloride 105, CO2 27, BUN 17, creatinine 0.9, glucose 341. ASSESSMENT: Encephalopathy, which has improved. It is assumed this may be due to herpes type encephalitis. PLAN: Continue acyclovir and current treatment. The patient can likely be moved to the medical floor as he has no acute issues that would require telemetry monitoring. Job ID: [id number]
--- NOTE | 2018-05-25 11:55 | PRG ---
DATE OF SERVICE: 05/24/2018 SUBJECTIVE: Mr. Joseph is quite alert, establishes eye contact, recognized me and family members. Follows commands. Pleasant. Denies headaches. No respiratory symptoms or abdominal pain. No diarrhea. OBJECTIVE: VITAL SIGNS: He has been afebrile with T-max 99.3. HEENT: His ocular movements are conjugate. LUNGS: Symmetrical breath sounds. HEART: S1 and S2. Regular rate. EXTREMITIES: Moves extremities with some limitation. He is able to wiggle his toes and hands, but has a hard time lifting them from the bed. LABORATORY DATA: WBC count is 6.9, hemoglobin 7.5, and platelets 269. Chemistry with a creatinine 0.96, calcium 7.7, and phosphorus 1.6. Liver profile normal. CMV and DNA PCR and histoplasma antigen pending. ASSESSMENT AND DISCUSSION: Metastatic prostate cancer with various areas of bone involvement, renal transplant, on immunosuppressive medications, and encephalopathies with possible encephalitis picture. 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 There has been clear-cut improvement. This could have been coincidental though. Job ID: [id number]
--- NOTE | 2018-05-25 14:38 | EEG ---
Referring Physician: Roxanne VAZ EEG # [id number] TEST TYPE: ROUTINE PORTABLE INPATIENT REPORT: AN EEG USING THE INTERNATIONAL TEN-TWENTY SYSTEM OF ELECTRODE PLACEMENT WAS PERFORMED. The background rhythm consists of irregular 4-5 hertz Theta seen in the right frontal-temporal area. There are some faster frequencies of 5-6 and 5-7 hertz Theta seen over the left hemisphere. There is occasional to frequent spike and spike and wave occurring in single units of spike and wave seen mainly in the right frontal-temporal area. This is occasionally seen also in the left frontal -temporal area and occasionally seen bilaterally. PHOTIC STIMULATION: Produces no abnormalities. IMPRESSION: ABNORMAL EEG DUE TO DIFFUSELY SLOW BACKGROUND RHYTHM AND DUE TO EPILEPTIFORM ACTIVITY SEEN IN BOTH TEMPORAL AREAS, BUT MORE PROMINENT IN THE RIGHT TEMPORAL AREA. THIS EEG IS CONSISTENT WITH AN ENCEPHALOPATHY AND WITH A SEIZURE DISORDER. CLINICAL CORRELATION IS SUGGESTED. Vice President Financial: JEWEL Brim Edge Trimmer: [email or web address] NAVARRETE
[2018-05-25 16:54] LABS: Anion Gap 14 mmol/L (10-20); BUN (Urea Nitrogen) 16 mg/dL (8.4-25.7); Calc. Creatinine Clearance 145 mL/min (70-130); Carbon Dioxide 26 mmol/L (23-31); Chloride 106 mmol/L (98-107); Estimated GFR-MDRD Greater than 90; Glucose 266 mg/dL (80-115); Magnesium 2.1 mg/dL (1.6-2.6); Phosphorus 2.4 mg/dL (2.3-4.7); Potassium 2.8 mmol/L (3.5-5.1); Sodium 143 mmol/L (136-145)
[2018-05-25] MEDS: Sodium Bicarbonate 140 MEQ in Dextrose 5% in Water 1,000 ML IV SCH ×2 (16:57→16:59)
[2018-05-25] MEDS: Pantoprazole 40 MG GRANULES PACKET PO SCH (21:08)
[2018-05-26] MEDS: Fosphenytoin Sodium 100 MG in Sodium Chloride 0.9% 50 ML IVPB SCH ×3 (00:28→15:26)
[2018-05-26] MEDS: Abiraterone Acetate [Zytiga] 1,000 MG PO SCH (06:23)
[2018-05-26] MEDS: HumaLOG 300 UNITS/3 ML VIAL SC PRN ×5 (06:28→22:42)
--- NOTE | 2018-05-26 07:56 | PDOC.FM ---
- Subjective Subjective: Patient continues to make minor improvements. He was requesting to get up and walk to the bathroom today. He was alert and awake this AM. He had just gotten changed which took a lot of energy, so he was a bit tired. The states he was up in the middle of the night talking. He was recognizing family yesterday. He still has confusion, but he has made some progress. - Objective MAR Reviewed: Yes Vital Signs & Weight: Vital Signs (12 hours) Temp Pulse Resp BP Pulse Ox 05/26/18 06:34 95 05/26/18 04:00 99.3 F 78 20 144/66 H 95 Weight Admit Weight 122.425 kg Weight 120.826 kg I&O: 05/25/18 05/26/18 05/27/18 06:59 06:59 06:59 Intake Total 3534.5 2310 Output Total 4000 2000 Balance -465.5 310 Result Diagrams: 05/25/18 05:20 05/25/18 16:15 EKG Reviewed by me: Yes Radiology Reviewed by me: Yes <Cintia Jackson - Last Filed: 05/26/18 08:04> - Objective Vital Signs & Weight: Vital Signs (12 hours) Temp Pulse Resp BP Pulse Ox 05/26/18 08:34 98.5 F 96 20 155/68 H 96 05/26/18 06:34 95 05/26/18 04:00 99.3 F 78 20 144/66 H 95 05/25/18 23:36 99.1 F 79 20 148/64 H 92 L Weight Admit Weight 122.425 kg Weight 120.826 kg I&O: 05/25/18 05/26/18 05/27/18 06:59 06:59 06:59 Intake Total 3534.5 3080 Output Total 4000 2925 Balance -465.5 155 Result Diagrams: 05/26/18 08:25 05/26/18 08:25 <Debra Richey - Last Filed: 05/26/18 10:54> Phys Exam - Physical Examination Alert and oriented x0; asked me for my name instead of telling me his HEENT: moist MMs Neck: supple Respiratory: no wheezing, clear to auscultation bilateral Cardiovascular: RRR, no significant murmur Gastrointestinal: soft, no distention, positive bowel sounds Musculoskeletal: no edema, pulses present Neurological: non-focal GCS 14, following some commands, responds to questions Responses not always in context Deviation from normal: A&O x0 Skin: cap refill <2 seconds <Cintia Jackson - Last Filed: 05/26/18 08:04> Dx/Plan (1) Acute respiratory failure with hypoxia Code(s): J96.01 - ACUTE RESPIRATORY FAILURE WITH HYPOXIA Status: Acute (2) SIRS (systemic inflammatory response syndrome) Code(s): R65.10 - SIRS OF NON-INFECTIOUS ORIGIN W/O ACUTE ORGAN DYSFUNCTION Status: Acute (3) Hyponatremia Code(s): E87.1 - HYPO-OSMOLALITY AND HYPONATREMIA Status: Acute (4) CAD (coronary artery disease) Code(s): I25.10 - ATHSCL HEART DISEASE OF [place] CORONARY ARTERY W/O ANG PCTRS Status: Chronic Qualifiers: Coronary Disease-Associated Artery/Lesion type: [place] artery Associated angina: without angina (5) COPD (chronic obstructive pulmonary disease) Status: Chronic Qualifiers: COPD type: COPD with acute exacerbation Qualified Code(s): J44.1 - Chronic obstructive pulmonary disease with (acute) exacerbation (6) GERD (gastroesophageal reflux disease) Code(s): K21.9 - GASTRO-ESOPHAGEAL REFLUX DISEASE WITHOUT ESOPHAGITIS Status: Chronic (7) Hypothyroid Code(s): E03.9 - HYPOTHYROIDISM, UNSPECIFIED Status: Chronic (8) Normocytic anemia Code(s): D64.9 - ANEMIA, UNSPECIFIED Status: Chronic (9) Prostate cancer Code(s): C61 - MALIGNANT NEOPLASM OF PROSTATE Status: Chronic (10) CKD (chronic kidney disease) stage 3, GFR 30-59 ml/min Status: Chronic (11) Hx of kidney transplant Status: Chronic (12) Hyperlipidemia Code(s): E78.5 - HYPERLIPIDEMIA, UNSPECIFIED Status: Chronic (13) IDDM (insulin dependent diabetes mellitus) Code(s): E11.9 - TYPE 2 DIABETES MELLITUS WITHOUT COMPLICATIONS; Z79.4 - LONGTERM (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 OF INSULIN Status: Chronic (14) Morbid obesity with BMI of 40.0-44.9, adult Code(s): E66.01 - MORBID (SEVERE) OBESITY DUE TO EXCESS CALORIES; Z68.41 - BODY MASS INDEX (BMI) 40.0-44.9, ADULT Status: Chronic (15) JUDI on CPAP Code(s): G47.33 - OBSTRUCTIVE SLEEP APNEA (ADULT) (PEDIATRIC) Status: Chronic (16) Tachycardia Code(s): R00.0 - TACHYCARDIA, UNSPECIFIED Status: Acute (17) Seizures Code(s): R56.9 - UNSPECIFIED CONVULSIONS Status: Acute (18) Adrenal insufficiency Code(s): E27.40 - UNSPECIFIED ADRENOCORTICAL INSUFFICIENCY Status: Suspected - Plan Plan: 68 year old male presents with encephalopathy 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 - Moustapha consulted; appreciate recs. - Dr. Anamika cohen consulted; appreciate recs - Neurology consulted; appreciate recs - Continue fosphenytoin: EEG showed temporal lobe epileptiform activity - Continue IV acyclovir with end date 05/30/[address] 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 Continue current dose. - Neurology consulted; appreciate recs. Metabolic encephalopathy 2/2 above - see above plans Tachycardia suspicious for atrial flutter vs. atrial tachycardia, resolved - EKG with ST elevations in II, III, AVF on 05/18 - Cardiology consulted. Appreciate recs. - EKG changes likely 2/2 tachycardia - Troponins negative, patient asymptomatic - No cardiac cath at this time per cards. - Patient on PO cardizem and digoxin - Patient transferred to telemetry Acute hypoxic respiratory failure. resolved - CTA negative for PE - Continue to monitor O2 status - CPAP at night as tolerated Adrenal insufficiency - Likely 2/2 to recent severe illness - Cortisol yesterday in AM <1 - Continue steroids Hypokalemia - Will replace potassium - Mg contributing to low K - Replace electrolytes Hypomagnesemia - Replace electrolytes Hypophosphatemia - Replace electrolytes Right wrist pain - XR neg for fracture - Spica thumb splint placed; was not on this AM. No pain - Swelling has improved, but still visible Acute on Chronic Kidney Disease, s/p kidney transplant - GFR 44, baseline GFR 60-82 - Stage 2 CKD - Cr 1.87, elevated from baseline --> 1.6 --> 1.2 --> 0.82 Protein calorie malnutrition - Albumin low as 2.3-2.8 - Pre-albumin low at 10 - Dietary consulted to assist with feeds - Patient tolerated NG tubes yesterday. Still NPO per recs of speech therapy, but serial bedside evals being done. Goal is for patient to tolerate PO. Will need to discuss PEG tube if patient not tolerating PO in next day or two. Discussed this with patient's who was at bedside Anemia - Iron studies mixed - B12 and folate high rather than low, so unlikely cause - Continue to monitor; transfuse if less than 7 - Type and screen today - AM CBC pending Hyponatremia - Na 132, likely chronic as value at baseline from previous admissions DM - continue home medications - aggressive SS, ACHS accuchecks - AM insulin increased; continue to adjust as necessary, will adjust again this AM Hx of Prostate cancer w/ mets to spine - continue home medications - last radiation tx appx [address] Willson - Patient has not yet started chemotherapy - Diffuse mets based on bone scan HLD - continue home medications Hx of Gout - continue home medications JUDI on CPAP - aware. DISPO: Stable. CODE: FULL VTE: heparin Dispo: Guarded. Continues to have some confusion, but marked improvement from initial presentation. Plan is to continue IV acyclovir to completion (05/30). Will need to discuss options for feeds custodial if patient still not able to tolerate PO. Discussed this with briefly this AM. Will continue to have discussion. Patient will likely need rehab or SNF upon discharge from hospital. Had honest conversation with this morning about further progression. We are unable to tell at this time whether patient will get back to baseline. She understands. <Cintia Jackson - Last Filed: 05/26/18 08:04> Attending Addendum - Attending Addendum Date/Time: 05/26/18 7024 I personally evaluated the patient and discussed the management with Dr. Jackson. I agree with the History, Examination, Assessment and Plan documented above with any addition or exceptions noted below. We will continue to replace electrolytes. Pt still confused but mentation is improving. Still not able to swallow at this time. Continue tube feeds. Started discussion about possible peg if he isn't able to swallow soon. <Debra Richey - Last Filed: 05/26/18 10:54>
[2018-05-26] MEDS ORDERED: INSULIN GLARGINE SC SCH (08:20)
[2018-05-26] MEDS ORDERED: PRE FILLED SC SCH (08:20)
[2018-05-26] MEDS: Heparin 5,000 UNITS/ML VIAL SC SCH ×3 (08:36→22:30)
[2018-05-26] MEDS ORDERED: Potassium Chloride 40 MEQ in Sodium Chloride 0.9% 250 ML 250 ML IVPB SCH (09:00)
[2018-05-26 09:31] LABS: Hemoglobin 7.1 g/dL (14.0-18.0); Mean Corpuscular HGB CONC 31.3 g/dL (32.0-36.0); Mean Corpuscular Hemoglobin 28.6 pg (27.0-31.0); Mean Corpuscular Volume 91.3 fL (78.0-98.0); Mean Platelet Volume 7.4 fL (7.4-10.4); Platelet Count 272 thou/uL (130-400); RBC Distribution Width 17.9 % (11.5-14.5); Red Blood Cell (RBC) Count 2.49 mill/uL (4.70-6.10); White Blood Cell (WBC) Count 7.7 thou/uL (4.8-10.8)
[2018-05-26 09:37] LABS: ALT (SGPT) 13 U/L (8-55); AST (SGOT) 20 U/L (5-34); Alkaline Phosphatase 126 U/L (40-150); Anion Gap 14 mmol/L (10-20); BUN (Urea Nitrogen) 16 mg/dL (8.4-25.7); Bilirubin, Total 0.4 mg/dL (0.2-1.2); Calc. Creatinine Clearance 147 mL/min (70-130); Calcium 6.8 mg/dL (7.8-10.44); Carbon Dioxide 26 mmol/L (23-31); Chloride 106 mmol/L (98-107); Estimated GFR-MDRD Greater than 90; Globulin 3.1 g/dL (2.4-3.5); Glucose 303 mg/dL (80-115); Magnesium 1.5 mg/dL (1.6-2.6); Phosphorus 1.4 mg/dL (2.3-4.7); Potassium 2.8 mmol/L (3.5-5.1); Protein, Total 6.1 g/dL (5.8-8.1); Sodium 143 mmol/L (136-145)
[2018-05-26] MEDS ORDERED: Pancrelipase DR 12000 1 CAP FS PRN (10:24)
[2018-05-26] MEDS ORDERED: Sodium Bicarbonate Tab 325 MG TAB PER TUBE PRN (10:24)
[2018-05-26 11:04] LABS: Band 12 % (5-11); Hypochromia SLIGHT = 6-15 cells (100X) (0-5/hpf); Lymphocytes 6 % (21-51); MDiff Complete? YES; Monocytes 3 % (0-10); Myelocyte 2 % (0-0); Neutrophil 75 % (42-75); Nucleated RBC 2 % (0); Platelet Morphology Comment Appears Adequate; Polychromasia MODERATE = 3-4 cells (100X) (0-2/hpf); Reactive Lymphocytes 2 % (0-10); Schistocytes SLIGHT = 2-5 cells (100X) (0-1/hpf)
[2018-05-26] MEDS: Atorvastatin Calcium 10 MG TAB PO SCH (11:31)
[2018-05-26] MEDS: Montelukast Sodium 10 mg Tablet PO SCH (11:32)
[2018-05-26] MEDS: Amlodipine 5 MG TAB PO SCH (11:32)
[2018-05-26] MEDS: Docusate 100 MG CAP PO SCH ×2 (11:32→22:31)
[2018-05-26] MEDS: Allopurinol 300 MG TAB PO SCH (11:32)
[2018-05-26] MEDS: Calcitriol 0.25 MCG CAP PO SCH (11:32)
[2018-05-26] MEDS: Bumetanide 1 MG TAB PO SCH ×2 (11:33→17:27)
[2018-05-26] MEDS: Digoxin 0.125 MG TAB PO SCH (11:34)
[2018-05-26] MEDS: Aspirin 325 mg Enteric Coated Tablet PO SCH (11:34)
[2018-05-26] MEDS: Mycophenolate 250 MG CAP PO SCH ×2 (11:34→22:30)
[2018-05-26] MEDS: Tacrolimus 0.5 MG CAP PO SCH ×2 (11:35→22:30)
[2018-05-26] MEDS: Loratadine 10 MG TAB PO SCH (11:35)
[2018-05-26] MEDS ORDERED: Potassium Chloride 40 MEQ in Premix Bag 1 BAG IVPB SCH (21:00)
[2018-05-26] MEDS ORDERED: SODIUM CHLORIDE 0.9% IVPB SCH (22:00)
[2018-05-26] MEDS ORDERED: SODIUM PHOSPHATE IVPB SCH (22:00)
[2018-05-26] MEDS: Pantoprazole 40 MG GRANULES PACKET PO SCH (22:32)
[2018-05-27] MEDS: Fosphenytoin Sodium 100 MG in Sodium Chloride 0.9% 50 ML IVPB SCH ×3 (01:03→18:42)
[2018-05-27] MEDS: Abiraterone Acetate [Zytiga] 1,000 MG PO SCH (06:10)
[2018-05-27 07:06] LABS: ALT (SGPT) 15 U/L (8-55); AST (SGOT) 22 U/L (5-34); Albumin 3.1 g/dL (3.4-4.8); Alkaline Phosphatase 122 U/L (40-150); Anion Gap 13 mmol/L (10-20); BUN (Urea Nitrogen) 15 mg/dL (8.4-25.7); Bilirubin, Total 0.5 mg/dL (0.2-1.2); Calc. Creatinine Clearance 159 mL/min (70-130); Calcium 6.8 mg/dL (7.8-10.44); Carbon Dioxide 24 mmol/L (23-31); Chloride 110 mmol/L (98-107); Estimated GFR-MDRD Greater than 90; Globulin 2.9 g/dL (2.4-3.5); Glucose 212 mg/dL (80-115); Magnesium 1.4 mg/dL (1.6-2.6); Potassium 3.4 mmol/L (3.5-5.1); Sodium 144 mmol/L (136-145)
[2018-05-27 07:13] LABS: Phosphorus 1.5 mg/dL (2.3-4.7)
[2018-05-27 08:56] LABS: Anisocytosis SLIGHT = 6-15 cells (100X) (0-5/hpf); Band 4 % (5-11); Hemoglobin 7.1 g/dL (14.0-18.0); Hypochromia SLIGHT = 6-15 cells (100X) (0-5/hpf); Lymphocytes 15 % (21-51); MDiff Complete? YES; Mean Corpuscular HGB CONC 31.2 g/dL (32.0-36.0); Mean Corpuscular Hemoglobin 28.4 pg (27.0-31.0); Mean Corpuscular Volume 91.1 fL (78.0-98.0); Mean Platelet Volume 7.4 fL (7.4-10.4); Monocytes 6 % (0-10); Neutrophil 72 % (42-75); Nucleated RBC 4 % (0); Platelet Count 256 thou/uL (130-400); Platelet Morphology Comment Appears Adequate; Polychromasia MODERATE = 3-4 cells (100X) (0-2/hpf); RBC Distribution Width 17.9 % (11.5-14.5); Reactive Lymphocytes 3 % (0-10); White Blood Cell (WBC) Count 9.2 thou/uL (4.8-10.8)
[2018-05-27] MEDS ORDERED: Magnesium 2 GM/50 ML 2 GM in Premix Bag 1 BAG IVPB SCH (10:45)
[2018-05-27] MEDS: Mycophenolate 250 MG CAP PO SCH ×2 (10:54→22:53)
[2018-05-27] MEDS: Tacrolimus 0.5 MG CAP PO SCH ×2 (10:59→22:52)
--- NOTE | 2018-05-27 10:59 | RAD ---
RADIOGRAPH ABDOMEN 1 VIEW: Date: 05/27/18 Time: 0955 hours HISTORY: 68-year-old male with abdominal distention and abdominal pain. FINDINGS: Bowel gas pattern is normal. Large number of surgical clips in the lower pelvis. Multiple titanium ta cks overlying the lower abdomen/pelvis. No evidence of organomegaly. IMPRESSION: 1. Normal bowel gas pattern. 2. Postsurgical changes in the pelvis and lower abdomen. POS: BEL
[2018-05-27] MEDS ORDERED: Potassium Chloride 10 MEQ in Premix Bag 1 BAG IVPB SCH (11:00)
[2018-05-27] MEDS ORDERED: Insulin Glargine 80 UNITS in Pre-Filled Syringe 1 EACH SC SCH (11:00)
[2018-05-27] MEDS: Atorvastatin Calcium 10 MG TAB PO SCH (11:01)
[2018-05-27] MEDS: Docusate 100 MG CAP PO SCH ×2 (11:01→22:53)
[2018-05-27] MEDS: Calcitriol 0.25 MCG CAP PO SCH (11:05)
[2018-05-27] MEDS: Montelukast Sodium 10 mg Tablet PO SCH (11:05)
[2018-05-27] MEDS: Allopurinol 300 MG TAB PO SCH (11:05)
[2018-05-27] MEDS: Amlodipine 5 MG TAB PO SCH (11:06)
[2018-05-27] MEDS: Aspirin 325 mg Enteric Coated Tablet PO SCH (11:10)
[2018-05-27] MEDS: Loratadine 10 MG TAB PO SCH (11:11)
[2018-05-27] MEDS: Bumetanide 1 MG TAB PO SCH ×2 (11:12→18:41)
[2018-05-27] MEDS: Acetaminophen 325 MG TAB PO PRN (11:13)
[2018-05-27] MEDS: Magnesium Oxide 400 MG TAB PO SCH (11:27)
[2018-05-27] MEDS: Heparin 5,000 UNITS/ML VIAL SC SCH ×3 (11:28→22:51)
[2018-05-27] MEDS: Potassium Chloride 10 MEQ in Premix Bag 1 BAG IVPB SCH ×4 (12:19→16:04)
[2018-05-27] MEDS: Digoxin 0.125 MG TAB PO SCH (12:25)
[2018-05-27] MEDS: Docusate Sodium 100 MG/10 ML UDCUP PO SCH ×2 (12:25→22:54)
[2018-05-27] MEDS: Polyethylene Glycol 3350 17 GM Packet PO SCH (12:26)
[2018-05-27] MEDS: HumaLOG 300 UNITS/3 ML VIAL SC PRN ×3 (13:34→22:52)
--- NOTE | 2018-05-27 14:52 | PDOC.FM ---
- Objective Vital Signs & Weight: Vital Signs (12 hours) Temp Pulse Resp BP Pulse Ox 05/27/18 12:25 70 05/27/18 11:46 98.8 F 70 16 148/72 H 95 05/27/18 11:06 76 05/27/18 11:03 76 05/27/18 08:07 92 L 05/27/18 07:41 98.5 F 76 20 153/82 H 92 L 05/27/18 04:00 97.6 F 79 20 137/67 94 L Weight Admit Weight 122.425 kg Weight 120.826 kg I&O: 05/26/18 05/27/18 05/28/18 06:59 06:59 06:59 Intake Total 3080 1465.7 Output Total 2925 2100 Balance 155 -634.3 Result Diagrams: 05/27/18 06:00 05/27/18 06:00 Dx/Plan (1) Acute respiratory failure with hypoxia Code(s): J96.01 - ACUTE RESPIRATORY FAILURE WITH HYPOXIA Status: Acute (2) SIRS (systemic inflammatory response syndrome) Code(s): R65.10 - SIRS OF NON-INFECTIOUS ORIGIN W/O ACUTE ORGAN DYSFUNCTION Status: Acute (3) Hyponatremia Code(s): E87.1 - HYPO-OSMOLALITY AND HYPONATREMIA Status: Acute (4) CAD (coronary artery disease) Code(s): I25.10 - ATHSCL HEART DISEASE OF [place] CORONARY ARTERY W/O ANG PCTRS Status: Chronic Qualifiers: Coronary Disease-Associated Artery/Lesion type: [place] artery Associated angina: without angina (5) COPD (chronic obstructive pulmonary disease) Status: Chronic Qualifiers: COPD type: COPD with acute exacerbation Qualified Code(s): J44.1 - Chronic obstructive pulmonary disease with (acute) exacerbation (6) GERD (gastroesophageal reflux disease) Code(s): K21.9 - GASTRO-ESOPHAGEAL REFLUX DISEASE WITHOUT ESOPHAGITIS Status: Chronic (7) Hypothyroid Code(s): E03.9 - HYPOTHYROIDISM, UNSPECIFIED Status: Chronic (8) Normocytic anemia Code(s): D64.9 - ANEMIA, UNSPECIFIED Status: Chronic (9) Prostate cancer Code(s): C61 - MALIGNANT NEOPLASM OF PROSTATE Status: Chronic (10) CKD (chronic kidney disease) stage 3, GFR 30-59 ml/min Status: Chronic (11) Hx of kidney transplant Status: Chronic (12) Hyperlipidemia Code(s): E78.5 - HYPERLIPIDEMIA, UNSPECIFIED Status: Chronic (13) IDDM (insulin dependent diabetes mellitus) Code(s): E11.9 - TYPE 2 DIABETES MELLITUS WITHOUT COMPLICATIONS; Z79.4 - CUSTODIAL (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 OF INSULIN Status: Chronic (14) Morbid obesity with BMI of 40.0-44.9, adult Code(s): E66.01 - MORBID (SEVERE) OBESITY DUE TO EXCESS CALORIES; Z68.41 - BODY MASS INDEX (BMI) 40.0-44.9, ADULT Status: Chronic (15) JUDI on CPAP Code(s): G47.33 - OBSTRUCTIVE SLEEP APNEA (ADULT) (PEDIATRIC) Status: Chronic (16) Tachycardia Code(s): R00.0 - TACHYCARDIA, UNSPECIFIED Status: Acute (17) Seizures Code(s): R56.9 - UNSPECIFIED CONVULSIONS Status: Acute (18) Adrenal insufficiency Code(s): E27.40 - UNSPECIFIED ADRENOCORTICAL INSUFFICIENCY Status: Suspected
--- NOTE | 2018-05-27 17:09 | PDOC.FM ---
- Subjective Subjective: Mr. Joseph was doing well this AM. He did state that he was having some mild abdominal pain. He was alert and oriented to person and time. He was a little confused about where he was. His was at bedside. He reportedly isn't eating much, but he was not eating much prior to hospitalization. - Objective MAR Reviewed: Yes Vital Signs & Weight: Vital Signs (12 hours) Temp Pulse Resp BP Pulse Ox 05/27/18 15:38 98.7 F 71 18 160/76 H 93 L 05/27/18 12:25 70 05/27/18 11:46 98.8 F 70 16 148/72 H 95 05/27/18 11:06 76 05/27/18 11:03 76 05/27/18 08:07 92 L 05/27/18 07:41 98.5 F 76 20 153/82 H 92 L Weight Admit Weight 122.425 kg Weight 120.826 kg I&O: 05/26/18 05/27/18 05/28/18 06:59 06:59 06:59 Intake Total 3080 1465.7 Output Total 2925 2100 Balance 155 -634.3 Result Diagrams: 05/27/18 06:00 05/27/18 06:00 EKG Reviewed by me: Yes Radiology Reviewed by me: Yes <Cintia Jackson - Last Filed: 05/27/18 17:53> - Objective Vital Signs & Weight: Vital Signs (12 hours) Temp Pulse Resp BP Pulse Ox 05/28/18 09:24 72 05/28/18 09:20 72 05/28/18 09:19 72 05/28/18 08:00 98.0 F 72 18 150/74 H 96 05/28/18 04:00 97.6 F 68 18 156/77 H 96 05/28/18 00:00 97.7 F 69 16 146/70 H 96 Weight Admit Weight 122.425 kg Weight 120.826 kg I&O: 05/27/18 05/28/18 05/29/18 06:59 06:59 06:59 Intake Total 1465.7 590 Output Total 2100 750 375 Balance -634.3 -160 -375 Result Diagrams: 05/27/18 06:00 05/27/18 17:22 <Debra Richey - Last Filed: 05/28/18 10:29> Phys Exam - Physical Examination Constitutional: NAD appears more tired today than yesterady HEENT: moist MMs Neck: supple Respiratory: clear to auscultation bilateral Cardiovascular: RRR, no significant murmur Gastrointestinal: soft, positive bowel sounds Mildly tender to palpation, mild distention Musculoskeletal: pulses present trace edema bilaterally Neurological: non-focal Deviation from normal: flat affect, alert and oriented to person and time Skin: cap refill <2 seconds <Cintia Jackson - Last Filed: 05/27/18 17:53> Dx/Plan (1) Encephalitis due to human herpes simplex virus (HSV) Code(s): B00.4 - HERPESVIRAL ENCEPHALITIS Status: Suspected (2) Acute respiratory failure with hypoxia Code(s): J96.01 - ACUTE RESPIRATORY FAILURE WITH HYPOXIA Status: Resolved (3) SIRS (systemic inflammatory response syndrome) Code(s): R65.10 - SIRS OF NON-INFECTIOUS ORIGIN W/O ACUTE ORGAN DYSFUNCTION Status: Resolved (4) Hyponatremia Code(s): E87.1 - HYPO-OSMOLALITY AND HYPONATREMIA Status: Acute (5) CAD (coronary artery disease) Code(s): I25.10 - ATHSCL HEART DISEASE OF [place] CORONARY ARTERY W/O ANG PCTRS Status: Chronic Qualifiers: Coronary Disease-Associated Artery/Lesion type: [place] artery Associated angina: without angina (6) COPD (chronic obstructive pulmonary disease) Status: Chronic Qualifiers: COPD type: COPD with acute exacerbation Qualified Code(s): J44.1 - Chronic obstructive pulmonary disease with (acute) exacerbation (7) GERD (gastroesophageal reflux disease) Code(s): K21.9 - GASTRO-ESOPHAGEAL REFLUX DISEASE WITHOUT ESOPHAGITIS Status: Chronic (8) Hypothyroid Code(s): E03.9 - HYPOTHYROIDISM, UNSPECIFIED Status: Chronic (9) Normocytic anemia Code(s): D64.9 - ANEMIA, UNSPECIFIED Status: Chronic (10) Prostate cancer Code(s): C61 - MALIGNANT NEOPLASM OF PROSTATE Status: Chronic (11) CKD (chronic kidney disease) stage 3, GFR 30-59 ml/min Status: Chronic (12) Hx of kidney transplant Status: Chronic (13) Hyperlipidemia Code(s): E78.5 - HYPERLIPIDEMIA, UNSPECIFIED Status: Chronic (14) IDDM (insulin dependent diabetes mellitus) Code(s): E11.9 - TYPE 2 DIABETES MELLITUS WITHOUT COMPLICATIONS; Z79.4 - ALF (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 OF INSULIN Status: Chronic (15) Morbid obesity with BMI of 40.0-44.9, adult Code(s): E66.01 - MORBID (SEVERE) OBESITY DUE TO EXCESS CALORIES; Z68.41 - BODY MASS INDEX (BMI) 40.0-44.9, ADULT Status: Chronic (16) JUDI on CPAP Code(s): G47.33 - OBSTRUCTIVE SLEEP APNEA (ADULT) (PEDIATRIC) Status: Chronic (17) Tachycardia Code(s): R00.0 - TACHYCARDIA, UNSPECIFIED Status: Acute (18) Seizures Code(s): R56.9 - UNSPECIFIED CONVULSIONS Status: Acute (19) Adrenal insufficiency Code(s): E27.40 - UNSPECIFIED ADRENOCORTICAL INSUFFICIENCY Status: Suspected - Plan Plan: 8 year old male presents with encephalopathy 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 - Moustapha consulted; appreciate recs. - Dr. Anamika cohen consulted; appreciate recs - Neurology consulted; appreciate recs - Continue fosphenytoin: EEG showed temporal lobe epileptiform activity - Continue IV acyclovir with end date 05/30/[address] 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 Metabolic encephalopathy 2/2 above - see above plans Tachycardia suspicious for atrial flutter vs. atrial tachycardia, resolved - EKG with ST elevations in II, III, AVF on 05/18 - Cardiology consulted. Appreciate recs. - EKG changes likely 2/2 tachycardia - Troponins negative, patient asymptomatic - No cardiac cath at this time per cards. - Patient on PO cardizem and digoxin Acute hypoxic respiratory failure. resolved - CTA negative for PE - Continue to monitor O2 status - CPAP at night as tolerated Adrenal insufficiency - Likely 2/2 to recent severe illness - Cortisol has remained <1 - Continue steroids Hypokalemia - Continue to replace as needed - Mg contributing to low K - Replace electrolytes Hypomagnesemia - Replace electrolytes Hypophosphatemia - Replace electrolytes Right wrist pain - XR neg for fracture - Spica thumb splint placed; was not on this AM. No pain - Swelling has improved, but still visible Acute on Chronic Kidney Disease, s/p kidney transplant - GFR 44, baseline GFR 60-82 - Stage 2 CKD - Cr 1.87, elevated from baseline --> 1.6 --> 1.2 --> 0.82 Protein calorie malnutrition - Albumin low as 2.3-2.8 - Pre-albumin low at 10 - Dietary consulted to assist with feeds - NG tube removed. Patient passed speech therapy. He is now on special diet. He is tolerating diet well but isn't eating much. Anemia - Iron studies mixed - B12 and folate high rather than low, so unlikely cause - Continue to monitor; transfuse if less than 7 - Hypoproliferation of BM Hyponatremia - Na 132, likely chronic as value at baseline from previous admissions DM - continue home medications - aggressive SS, ACHS accuchecks - AM insulin increased; continue to adjust as necessary Hx of Prostate cancer w/ mets to spine - continue home medications - last radiation tx appx [address] Willson - Patient has not yet started chemotherapy - Diffuse mets based on bone scan HLD - continue home medications Hx of Gout - continue home medications JUDI on CPAP - aware. Constipation - Add bowel regimen - KUB negative for signs of obstruction DISPO: Stable. CODE: FULL VTE: heparin Schaeffer removed today. Monitor for urine output. Dispo: Stable. Prognosis guarded. Realistic with family about prognosis given extensive cancer history and immunosuppression from medications. Patient is ready for d/c to SNF vs. rehab. He will need to continue IV acyclovir until 05/30. He will require PT, OT, speech therapy. We will begin dispo planning. <Cintia Jackson - Last Filed: 05/27/18 17:53> Attending Addendum - Attending Addendum Date/Time: 05/27/18 8948 I personally evaluated the patient and discussed the management with Dr. Jackson I agree with the History, Examination, Assessment and Plan documented above with any addition or exceptions noted below. The patient will get a kub today. Continue therapy. Waiting on placement. Continue IV acyclovir. Will work to transition meds to po. <Debra Richey - Last Filed: 05/28/18 10:29>
[2018-05-27 18:15] LABS: Anion Gap 15 mmol/L (10-20); BUN (Urea Nitrogen) 18 mg/dL (8.4-25.7); Calc. Creatinine Clearance 153 mL/min (70-130); Calcium 6.5 mg/dL (7.8-10.44); Carbon Dioxide 21 mmol/L (23-31); Chloride 108 mmol/L (98-107); Estimated GFR-MDRD Greater than 90; Glucose 337 mg/dL (80-115); Magnesium 1.5 mg/dL (1.6-2.6); Phosphorus 2.8 mg/dL (2.3-4.7); Sodium 140 mmol/L (136-145)
[2018-05-27] MEDS ORDERED: Clopidogrel Bisulfate 75 MG TAB ONE (18:28)
[2018-05-27 22:09] LABS: CMV DNA-PCR Test Positive < 200 IU/mL (Negative)
[2018-05-27] MEDS: Pantoprazole 40 MG GRANULES PACKET PO SCH (23:24)
[2018-05-28] MEDS ORDERED: Nitroglycerin 0.4 MG TAB (25 Tab Bottle) ONE (00:23)
[2018-05-28] MEDS: Fosphenytoin Sodium 100 MG in Sodium Chloride 0.9% 50 ML IVPB SCH ×2 (00:37→09:08)
[2018-05-28] MEDS: HumaLOG 300 UNITS/3 ML VIAL SC PRN ×3 (01:50→12:31)
[2018-05-28] MEDS: Abiraterone Acetate [Zytiga] 1,000 MG PO SCH (06:45)
[2018-05-28] MEDS: Bumetanide 1 MG TAB PO SCH ×2 (06:45→17:00)
[2018-05-28] MEDS: Docusate 100 MG CAP PO SCH ×2 (08:32→21:50)
[2018-05-28] MEDS: Calcitriol 0.25 MCG CAP PO SCH (09:17)
[2018-05-28] MEDS: Montelukast Sodium 10 mg Tablet PO SCH (09:20)
[2018-05-28] MEDS: Atorvastatin Calcium 10 MG TAB PO SCH (09:20)
[2018-05-28] MEDS: Tacrolimus 0.5 MG CAP PO SCH ×2 (09:20→21:50)
[2018-05-28] MEDS: Digoxin 0.125 MG TAB PO SCH (09:20)
[2018-05-28] MEDS: Loratadine 10 MG TAB PO SCH (09:22)
[2018-05-28] MEDS: Allopurinol 300 MG TAB PO SCH (09:22)
[2018-05-28] MEDS: Magnesium Oxide 400 MG TAB PO SCH (09:23)
[2018-05-28] MEDS: Mycophenolate 250 MG CAP PO SCH ×2 (09:23→21:50)
[2018-05-28] MEDS: Amlodipine 5 MG TAB PO SCH (09:24)
[2018-05-28] MEDS: Aspirin 325 mg Enteric Coated Tablet PO SCH (09:24)
[2018-05-28] MEDS: Insulin Glargine 80 UNITS in Pre-Filled Syringe 1 EACH SC SCH (09:48)
[2018-05-28] MEDS: Heparin 5,000 UNITS/ML VIAL SC SCH ×3 (09:48→21:51)
[2018-05-28] MEDS: Docusate Sodium 100 MG/10 ML UDCUP PO SCH (09:49)
[2018-05-28] MEDS: Polyethylene Glycol 3350 17 GM Packet PO SCH (10:35)
--- NOTE | 2018-05-28 13:50 | PDOC.FM ---
- Subjective Subjective: Patient was asleep during exam this AM. He was slow to respond. Patient's states that he was up all night saying he was hungry. He has been making mild improvements each day. Discussed with that we would touch base with heme/ onc regarding chemotherapy. Had honest discussion with stating that patient may not be a candidate for chemo at this point in time. understood. Patient was too tired this morning to have any input. If patient is candidate for chemo, and family opts to continue forward with chemo, then we discussed placement of mediport during hospitalization. - Objective MAR Reviewed: Yes Vital Signs & Weight: Vital Signs (12 hours) Temp Pulse Pulse Pulse Resp BP BP 05/28/18 11:30 98.1 F 70 18 05/28/18 10:23 74 74 140/72 145/72 H 05/28/18 09:24 72 05/28/18 09:20 72 05/28/18 09:19 72 05/28/18 08:15 05/28/18 08:00 98.0 F 72 18 05/28/18 04:00 97.6 F 68 18 BP Pulse Ox 05/28/18 11:30 140/72 98 05/28/18 10:23 05/28/18 09:24 05/28/18 09:20 05/28/18 09:19 05/28/18 08:15 96 05/28/18 08:00 150/74 H 96 05/28/18 04:00 156/77 H 96 Weight Admit Weight 122.425 kg Weight 120.826 kg I&O: 05/27/18 05/28/18 05/29/18 06:59 06:59 06:59 Intake Total 1465.7 590 300 Output Total 2100 750 375 Balance -634.3 -160 -75 Result Diagrams: 05/27/18 06:00 05/27/18 17:22 EKG Reviewed by me: Yes Radiology Reviewed by me: Yes <Cintia Jackson - Last Filed: 05/28/18 13:51> - Objective Vital Signs & Weight: Vital Signs (12 hours) Temp Pulse Pulse Pulse Resp BP BP 05/28/18 11:30 98.1 F 70 18 05/28/18 10:23 74 74 140/72 145/72 H 05/28/18 09:24 72 05/28/18 09:20 72 05/28/18 09:19 72 05/28/18 08:15 05/28/18 08:00 98.0 F 72 18 05/28/18 04:00 97.6 F 68 18 BP Pulse Ox 05/28/18 11:30 140/72 98 05/28/18 10:23 05/28/18 09:24 05/28/18 09:20 05/28/18 09:19 05/28/18 08:15 96 05/28/18 08:00 150/74 H 96 05/28/18 04:00 156/77 H 96 Weight Admit Weight 122.425 kg Weight 120.826 kg I&O: 05/27/18 05/28/18 05/29/18 06:59 06:59 06:59 Intake Total 1465.7 590 600 Output Total 2100 750 375 Balance -634.3 -160 225 Result Diagrams: 05/27/18 06:00 05/27/18 17:22 <Debra Richey - Last Filed: 05/28/18 14:45> Phys Exam - Physical Examination Tired this morning. Not very interactive. Respiratory: no wheezing, clear to auscultation bilateral Cardiovascular: RRR, no significant murmur Gastrointestinal: soft, non-tender, no distention, positive bowel sounds trace bilateral edema Patient tired this morning. Deviation from normal: Unable to assess during visit Skin: cap refill <2 seconds <Cintia Jackson - Last Filed: 05/28/18 13:51> Dx/Plan (1) Encephalitis due to human herpes simplex virus (HSV) Code(s): B00.4 - HERPESVIRAL ENCEPHALITIS Status: Suspected (2) Acute respiratory failure with hypoxia Code(s): J96.01 - ACUTE RESPIRATORY FAILURE WITH HYPOXIA Status: Resolved (3) SIRS (systemic inflammatory response syndrome) Code(s): R65.10 - SIRS OF NON-INFECTIOUS ORIGIN W/O ACUTE ORGAN DYSFUNCTION Status: Resolved (4) Hyponatremia Code(s): E87.1 - HYPO-OSMOLALITY AND HYPONATREMIA Status: Acute (5) CAD (coronary artery disease) Code(s): I25.10 - ATHSCL HEART DISEASE OF [place] CORONARY ARTERY W/O ANG PCTRS Status: Chronic Qualifiers: Coronary Disease-Associated Artery/Lesion type: [place] artery Associated angina: without angina (6) COPD (chronic obstructive pulmonary disease) Status: Chronic Qualifiers: COPD type: COPD with acute exacerbation Qualified Code(s): J44.1 - Chronic obstructive pulmonary disease with (acute) exacerbation (7) GERD (gastroesophageal reflux disease) Code(s): K21.9 - GASTRO-ESOPHAGEAL REFLUX DISEASE WITHOUT ESOPHAGITIS Status: Chronic (8) Hypothyroid Code(s): E03.9 - HYPOTHYROIDISM, UNSPECIFIED Status: Chronic (9) Normocytic anemia Code(s): D64.9 - ANEMIA, UNSPECIFIED Status: Chronic (10) Prostate cancer Code(s): C61 - MALIGNANT NEOPLASM OF PROSTATE Status: Chronic (11) CKD (chronic kidney disease) stage 3, GFR 30-59 ml/min Status: Chronic (12) Hx of kidney transplant Status: Chronic (13) Hyperlipidemia Code(s): E78.5 - HYPERLIPIDEMIA, UNSPECIFIED Status: Chronic (14) IDDM (insulin dependent diabetes mellitus) Code(s): E11.9 - TYPE 2 DIABETES MELLITUS WITHOUT COMPLICATIONS; Z79.4 - ROTATING FIELD [employer]SEM[employer]ER (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 OF INSULIN Status: Chronic (15) Morbid obesity with BMI of 40.0-44.9, adult Code(s): E66.01 - MORBID (SEVERE) OBESITY DUE TO EXCESS CALORIES; Z68.41 - BODY MASS INDEX (BMI) 40.0-44.9, ADULT Status: Chronic (16) JUDI on CPAP Code(s): G47.33 - OBSTRUCTIVE SLEEP APNEA (ADULT) (PEDIATRIC) Status: Chronic (17) Tachycardia Code(s): R00.0 - TACHYCARDIA, UNSPECIFIED Status: Acute (18) Seizures Code(s): R56.9 - UNSPECIFIED CONVULSIONS Status: Acute (19) Adrenal insufficiency Code(s): E27.40 - UNSPECIFIED ADRENOCORTICAL INSUFFICIENCY Status: Suspected - Plan Plan: 8 year old male presents with encephalopathy 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 - Moustapha consulted; appreciate recs. - Dr. Anamika cohen consulted; appreciate recs - Neurology consulted; appreciate recs - Continue fosphenytoin: EEG showed temporal lobe epileptiform activity - Continue IV acyclovir with end date 05/30/[address] 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 Metabolic encephalopathy 2/2 above - see above plans Tachycardia suspicious for atrial flutter vs. atrial tachycardia, resolved - EKG with ST elevations in II, III, AVF on 05/18 - Cardiology consulted. Appreciate recs. - EKG changes likely 2/2 tachycardia - Troponins negative, patient asymptomatic - No cardiac cath at this time per cards. - Patient on PO cardizem and digoxin Acute hypoxic respiratory failure. resolved - CTA negative for PE - Continue to monitor O2 status - CPAP at night as tolerated Adrenal insufficiency - Likely 2/2 to recent severe illness - Cortisol has remained <1 - Continue steroids; will start prednisone 20 mg PO BID x1 wk, prednisone 10 mg PO BID x1 wk, prednisone 5 mg PO BID x1 wk, and then prednisone 5 mg PO daily indefinitely Hypokalemia - Continue to replace as needed - Mg contributing to low K - Replace electrolytes Hypomagnesemia - Replace electrolytes Hypophosphatemia - Replace electrolytes Right wrist pain - XR neg for fracture - Spica thumb splint placed; was not on this AM. No pain - Swelling has improved, but still visible Acute on Chronic Kidney Disease, s/p kidney transplant - GFR 44, baseline GFR 60-82 - Stage 2 CKD - Cr 1.87, elevated from baseline --> 1.6 --> 1.2 --> 0.82 Protein calorie malnutrition - Albumin low as 2.3-2.8 - Pre-albumin low at 10 - Dietary consulted to assist with feeds - Patient on special diet per speech therapy. Tolerating well, but not eating much. Anemia - Iron studies mixed - B12 and folate high rather than low, so unlikely cause - Continue to monitor; transfuse if less than 7 - Hypoproliferation of BM Hyponatremia - Na 132, likely chronic as value at baseline from previous admissions DM - continue home medications - aggressive SS, ACHS accuchecks - AM insulin increased; continue to adjust as necessary Hx of Prostate cancer w/ mets to spine - continue home medications - last radiation tx appx [address] Willson - Patient has not yet started chemotherapy - Diffuse mets based on bone scan - Patient was supposed to undergo chemotherapy last week. Since his hospitalization that was put on hold. Discussed case with heme/onc today. They will notify our team if they decide to proceed with chemotherapy. If chemotherapy is an option and family/patient agrees, then we will contact Dr. William regarding placement of mediport. HLD - continue home medications Hx of Gout - continue home medications JUDI on CPAP - aware. Constipation - Continue bowel regimen - KUB negative for signs of obstruction DISPO: Stable. CODE: FULL VTE: heparin Dispo: Stable. Prognosis guarded. Realistic with family about prognosis given extensive cancer history and immunosuppression from medications. Patient is ready for d/c to SNF vs. rehab. He will need to continue IV acyclovir until 05/30. He will require PT, OT, speech therapy. Continue dispo planning. <Cintia Jackson - Last Filed: 05/28/18 13:51> Attending Addendum - Attending Addendum Date/Time: 05/28/18 1429 I personally evaluated the patient and discussed the management with Dr. Jackson. I agree with the History, Examination, Assessment and Plan documented above with any addition or exceptions noted below. The patient was awake and alert and interacting with Dr. Christina during our visit. He will continue IV acyclovir through May 30. Monitoring po intake. Waiting on acceptance to inpatient rehab. <Debra Richey - Last Filed: 05/28/18 14:45>
[2018-05-28] MEDS ORDERED: Phenytoin 125 MG/5 ML UDCUP PO SCH ×2 (15:00→16:00)
[2018-05-28] MEDS: Pantoprazole 40 MG GRANULES PACKET PO SCH (21:50)
[2018-05-28] MEDS: predniSONE 20 MG TAB PO SCH (21:50)
[2018-05-28] MEDS: Calcium Carbonate 500 MG ChewTAB PO SCH (21:51)
[2018-05-29] MEDS: Fentanyl 100 MCG/2 ML VIAL SLOW IVP PRN (01:40)
[2018-05-29] MEDS: Abiraterone Acetate [Zytiga] 1,000 MG PO SCH (06:51)
--- NOTE | 2018-05-29 07:44 | PDOC.FM ---
- Subjective Subjective: Patient appears tired this AM, but he is arousable. He did not want to answer many questions. states that he has improved day by day. Yesterday he took a few steps with PT. He was alert and oriented x3 during the day per family. I spoke with this morning about the chemo port. After discussion with heme/ onc yesterday, they do not think patient is currently a candidate for chemo and recommend against getting a port, particularly during this hospitalization. I discussed this at length with the who understood. - Objective MAR Reviewed: Yes Vital Signs & Weight: Vital Signs (12 hours) Temp Pulse Resp BP Pulse Ox 05/29/18 07:33 99.1 F 70 18 174/74 H 98 05/29/18 04:00 98.0 F 73 16 148/72 H 99 05/29/18 00:00 98.3 F 71 16 141/69 H 98 05/28/18 19:59 98.6 F 70 16 131/61 97 Weight Admit Weight 122.425 kg Weight 120.826 kg I&O: 05/28/18 05/29/18 05/30/18 06:59 06:59 06:59 Intake Total 590 900 Output Total 750 825 Balance -160 75 Result Diagrams: 05/29/18 07:22 05/29/18 07:22 EKG Reviewed by me: Yes Radiology Reviewed by me: Yes <Cintia Jackson - Last Filed: 05/29/18 10:11> - Objective Vital Signs & Weight: Vital Signs (12 hours) Temp Pulse Resp BP BP Pulse Ox 05/29/18 11:45 98.3 F 70 16 140/70 97 05/29/18 09:31 68 174/74 H 05/29/18 09:30 68 05/29/18 09:29 68 174/74 H 05/29/18 07:33 99.1 F 70 18 174/74 H 98 05/29/18 04:00 98.0 F 73 16 148/72 H 99 Weight Admit Weight 122.425 kg Weight 120.826 kg I&O: 05/28/18 05/29/18 05/30/18 06:59 06:59 06:59 Intake Total 590 900 Output Total 750 825 500 Balance -160 75 -500 Result Diagrams: 05/29/18 07:22 05/29/18 07:22 <Josephine Christina - Last Filed: 05/29/18 12:56> Phys Exam - Physical Examination Tired, but arousable. Did not answer many questions this AM HEENT: moist MMs Neck: supple Respiratory: no wheezing, clear to auscultation bilateral Cardiovascular: RRR, no significant murmur Gastrointestinal: soft, non-tender, no distention Musculoskeletal: pulses present trace bilateral LE edema Neurological: non-focal Skin: cap refill <2 seconds <Cintia Jackson - Last Filed: 05/29/18 10:11> Dx/Plan (1) Encephalitis due to human herpes simplex virus (HSV) Code(s): B00.4 - HERPESVIRAL ENCEPHALITIS Status: Suspected (2) Acute respiratory failure with hypoxia Code(s): J96.01 - ACUTE RESPIRATORY FAILURE WITH HYPOXIA Status: Resolved (3) SIRS (systemic inflammatory response syndrome) Code(s): R65.10 - SIRS OF NON-INFECTIOUS ORIGIN W/O ACUTE ORGAN DYSFUNCTION Status: Resolved (4) Hyponatremia Code(s): E87.1 - HYPO-OSMOLALITY AND HYPONATREMIA Status: Acute (5) CAD (coronary artery disease) Code(s): I25.10 - ATHSCL HEART DISEASE OF [place] CORONARY ARTERY W/O ANG PCTRS Status: Chronic Qualifiers: Coronary Disease-Associated Artery/Lesion type: [place] artery Associated angina: without angina (6) COPD (chronic obstructive pulmonary disease) Status: Chronic Qualifiers: COPD type: COPD with acute exacerbation Qualified Code(s): J44.1 - Chronic obstructive pulmonary disease with (acute) exacerbation (7) GERD (gastroesophageal reflux disease) Code(s): K21.9 - GASTRO-ESOPHAGEAL REFLUX DISEASE WITHOUT ESOPHAGITIS Status: Chronic (8) Hypothyroid Code(s): E03.9 - HYPOTHYROIDISM, UNSPECIFIED Status: Chronic (9) Normocytic anemia Code(s): D64.9 - ANEMIA, UNSPECIFIED Status: Chronic (10) Prostate cancer Code(s): C61 - MALIGNANT NEOPLASM OF PROSTATE Status: Chronic (11) CKD (chronic kidney disease) stage 3, GFR 30-59 ml/min Status: Chronic (12) Hx of kidney transplant Status: Chronic (13) Hyperlipidemia Code(s): E78.5 - HYPERLIPIDEMIA, UNSPECIFIED Status: Chronic (14) IDDM (insulin dependent diabetes mellitus) Code(s): E11.9 - TYPE 2 DIABETES MELLITUS WITHOUT COMPLICATIONS; Z79.4 - CODING SPECIALIST HOME HEALTH (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 OF INSULIN Status: Chronic (15) Morbid obesity with BMI of 40.0-44.9, adult Code(s): E66.01 - MORBID (SEVERE) OBESITY DUE TO EXCESS CALORIES; Z68.41 - BODY MASS INDEX (BMI) 40.0-44.9, ADULT Status: Chronic (16) JUDI on CPAP Code(s): G47.33 - OBSTRUCTIVE SLEEP APNEA (ADULT) (PEDIATRIC) Status: Chronic (17) Tachycardia Code(s): R00.0 - TACHYCARDIA, UNSPECIFIED Status: Acute (18) Seizures Code(s): R56.9 - UNSPECIFIED CONVULSIONS Status: Acute (19) Adrenal insufficiency Code(s): E27.40 - UNSPECIFIED ADRENOCORTICAL INSUFFICIENCY Status: Suspected - Plan Plan: 68 year old male presents with encephalopathy 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 - Moustapha consulted; appreciate recs. - Dr. Anamika cohen consulted; appreciate recs - Neurology consulted; appreciate recs - Continue fosphenytoin: EEG showed temporal lobe epileptiform activity - Continue IV acyclovir with end date 05/30/[address] 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 Will adjust medications and reassess tomorrow. - Neurology consulted; appreciate recs. Metabolic encephalopathy 2/2 above, resolved - see above plans Tachycardia suspicious for atrial flutter vs. atrial tachycardia, resolved - EKG with ST elevations in II, III, AVF on 05/18 - Cardiology consulted. Appreciate recs. - EKG changes likely 2/2 tachycardia - Troponins negative, patient asymptomatic - No cardiac cath at this time per cards. - Patient on PO cardizem and digoxin Acute hypoxic respiratory failure. resolved - CTA negative for PE - Continue to monitor O2 status - CPAP at night as tolerated Adrenal insufficiency - Likely 2/2 to recent severe illness - Cortisol has remained <1 - Continue steroids; will start prednisone 20 mg PO BID x1 wk, prednisone 10 mg PO BID x1 wk, prednisone 5 mg PO BID x1 wk, and then prednisone 5 mg PO daily indefinitely Hypokalemia - Continue to replace as needed - Mg contributing to low K - Replace electrolytes Hypomagnesemia - Replace electrolytes Hypophosphatemia - Replace electrolytes Right wrist pain - XR neg for fracture - Spica thumb splint placed; was not on this AM. No pain - Swelling has improved, but still visible Acute on Chronic Kidney Disease, s/p kidney transplant - GFR 44, baseline GFR 60-82 - Stage 2 CKD - Cr 1.87, elevated from baseline --> 1.6 --> 1.2 --> 0.82 Protein calorie malnutrition - Albumin low as 2.3-2.8 - Pre-albumin low at 10 - Dietary consulted to assist with feeds - Patient on special diet per speech therapy. Tolerating well, but not eating much. Anemia - Iron studies mixed - B12 and folate high rather than low, so unlikely cause - Continue to monitor; transfuse if less than 7 - Hypoproliferation of BM, not at level for transfusion currently Hyponatremia - Na 132, likely chronic as value at baseline from previous admissions DM - continue home medications - aggressive SS, ACHS accuchecks - AM insulin increased; continue to adjust as necessary Hx of Prostate cancer w/ mets to spine - continue home medications - last radiation tx appx [address] Willson - Patient has not yet started chemotherapy - Diffuse mets based on bone scan - Patient was supposed to undergo chemotherapy last week. Since his hospitalization that was put on hold. Discussed case with heme/onc yesterday. They do not think patient is a good candidate for chemo currently and recommend against port placement at this time. Discussed with patient's in detail. HLD - continue home medications Hx of Gout - continue home medications JUDI on CPAP - aware. Constipation - Continue bowel regimen - KUB negative for signs of obstruction DISPO: Stable. CODE: FULL VTE: heparin Central line in place since admission: unable to obtain peripheral access. Will d/c tomorrow after completion of acyclovir. Dispo: Stable. Prognosis guarded. Realistic with family about prognosis given extensive cancer history and immunosuppression from medications. Patient is ready for d/c to SNF vs. rehab. He will need to continue IV acyclovir until 05/30. He will require PT, OT, speech therapy. Continue dispo planning. <Cintia Jackson - Last Filed: 05/29/18 10:11> Attending Addendum - Attending Addendum Date/Time: 05/29/18 9341 I personally evaluated the patient and discussed the management with Dr. Jackson I agree with the History, Examination, Assessment and Plan documented above with any addition or exceptions noted below. HSV encephalitis and subsequent seizure activity- slow improvement. IV acyclovir through tomorrow 05/30. Transition to po dil[place] and adjust dose until therapeutic. Deconditioning-PT/OT/ST- will need inpt rehab vs SNF (hopefully Thursday or Thursday of next week). Replace electrolytes per protocol <Josephine Christina - Last Filed: 05/29/18 12:56>
[2018-05-29 08:42] LABS: Band 10 % (5-11); Hemoglobin 7.3 g/dL (14.0-18.0); Lymphocytes 14 % (21-51); MDiff Complete? YES; Mean Corpuscular HGB CONC 31.5 g/dL (32.0-36.0); Mean Corpuscular Hemoglobin 29.3 pg (27.0-31.0); Mean Corpuscular Volume 92.8 fL (78.0-98.0); Mean Platelet Volume 7.8 fL (7.4-10.4); Metamyelocyte 1 % (0-0); Monocytes 2 % (0-10); Neutrophil 73 % (42-75); Nucleated RBC 3 % (0); Platelet Count 242 thou/uL (130-400); Polychromasia SLIGHT = 2-3 cells (100X) (0-2/hpf); RBC Distribution Width 19.2 % (11.5-14.5); Red Blood Cell (RBC) Count 2.48 mill/uL (4.70-6.10); White Blood Cell (WBC) Count 9.6 thou/uL (4.8-10.8)
[2018-05-29 08:45] LABS: ALT (SGPT) 15 U/L (8-55); AST (SGOT) 23 U/L (5-34); Alkaline Phosphatase 107 U/L (40-150); Anion Gap 13 mmol/L (10-20); BUN (Urea Nitrogen) 16 mg/dL (8.4-25.7); Bilirubin, Total 0.5 mg/dL (0.2-1.2); Calc. Creatinine Clearance 181 mL/min (70-130); Calcium 6.8 mg/dL (7.8-10.44); Carbon Dioxide 21 mmol/L (23-31); Chloride 112 mmol/L (98-107); Estimated GFR-MDRD Greater than 90; Globulin 2.7 g/dL (2.4-3.5); Glucose 127 mg/dL (80-115); Magnesium 1.3 mg/dL (1.6-2.6); Phosphorus 1.1 mg/dL (2.3-4.7); Potassium 3.5 mmol/L (3.5-5.1); Protein, Total 5.7 g/dL (5.8-8.1); Sodium 142 mmol/L (136-145)
[2018-05-29] MEDS: Polyethylene Glycol 3350 17 GM Packet PO SCH (09:28)
[2018-05-29] MEDS: Calcitriol 0.25 MCG CAP PO SCH (09:28)
[2018-05-29] MEDS: Tacrolimus 0.5 MG CAP PO SCH ×2 (09:28→20:49)
[2018-05-29] MEDS: Calcium Carbonate 500 MG ChewTAB PO SCH ×2 (09:29→20:44)
[2018-05-29] MEDS: Magnesium Oxide 400 MG TAB PO SCH (09:30)
[2018-05-29] MEDS: Digoxin 0.125 MG TAB PO SCH (09:30)
[2018-05-29] MEDS: Atorvastatin Calcium 10 MG TAB PO SCH (09:30)
[2018-05-29] MEDS: Aspirin 325 mg Enteric Coated Tablet PO SCH (09:30)
[2018-05-29] MEDS: Loratadine 10 MG TAB PO SCH (09:30)
[2018-05-29] MEDS: Mycophenolate 250 MG CAP PO SCH ×2 (09:30→20:46)
[2018-05-29] MEDS: Montelukast Sodium 10 mg Tablet PO SCH (09:31)
[2018-05-29] MEDS: Docusate 100 MG CAP PO SCH ×2 (09:31→20:44)
[2018-05-29] MEDS: Amlodipine 5 MG TAB PO SCH (09:31)
[2018-05-29] MEDS: predniSONE 20 MG TAB PO SCH ×2 (09:31→20:48)
[2018-05-29] MEDS: Allopurinol 300 MG TAB PO SCH (09:31)
[2018-05-29] MEDS: Bumetanide 1 MG TAB PO SCH ×2 (09:32→16:24)
[2018-05-29] MEDS: Heparin 5,000 UNITS/ML VIAL SC SCH ×3 (09:32→20:55)
[2018-05-29] MEDS ORDERED: Magnesium Sulfate 1 GM/2 ML VIAL IM SCH (10:15)
[2018-05-29] MEDS ORDERED: Potassium Phosphate 40 MMOL in Sodium Chloride 0.9% 500 ML IVPB SCH (11:15)
[2018-05-29] MEDS ORDERED: Magnesium 2 GM/50 ML 2 GM in Premix Bag 1 BAG IVPB SCH (11:15)
[2018-05-29] MEDS: Insulin Glargine 80 UNITS in Pre-Filled Syringe 1 EACH SC SCH (12:04)
[2018-05-29] MEDS ORDERED: Calcium Carbonate 500 MG ChewTAB PO ONE (13:45)
[2018-05-29] MEDS: Pantoprazole 40 MG GRANULES PACKET PO SCH (20:46)
[2018-05-29] MEDS: traMADol HCl 50 MG TAB PO PRN (20:49)
[2018-05-30] MEDS: Abiraterone Acetate [Zytiga] 1,000 MG PO SCH (05:47)
[2018-05-30] MEDS: Calcium Carbonate 500 MG ChewTAB PO SCH ×2 (09:45→20:47)
[2018-05-30] MEDS: Bumetanide 1 MG TAB PO SCH ×2 (09:49→16:58)
[2018-05-30] MEDS: Allopurinol 300 MG TAB PO SCH (09:50)
[2018-05-30] MEDS: Amlodipine 5 MG TAB PO SCH (09:50)
[2018-05-30] MEDS: Calcitriol 0.25 MCG CAP PO SCH (09:51)
[2018-05-30] MEDS: Digoxin 0.125 MG TAB PO SCH (09:51)
[2018-05-30] MEDS: Atorvastatin Calcium 10 MG TAB PO SCH (09:51)
[2018-05-30] MEDS: Aspirin 325 mg Enteric Coated Tablet PO SCH (09:51)
[2018-05-30] MEDS: Docusate 100 MG CAP PO SCH ×2 (09:52→20:48)
[2018-05-30] MEDS: Tacrolimus 0.5 MG CAP PO SCH ×2 (09:52→20:50)
[2018-05-30] MEDS: predniSONE 20 MG TAB PO SCH ×2 (09:52→20:50)
[2018-05-30] MEDS: Mycophenolate 250 MG CAP PO SCH ×2 (09:52→20:48)
[2018-05-30] MEDS: Loratadine 10 MG TAB PO SCH (09:52)
[2018-05-30] MEDS: Montelukast Sodium 10 mg Tablet PO SCH (09:52)
[2018-05-30] MEDS: Polyethylene Glycol 3350 17 GM Packet PO SCH (09:52)
[2018-05-30] MEDS: Magnesium Oxide 400 MG TAB PO SCH (09:52)
[2018-05-30] MEDS: traMADol HCl 50 MG TAB PO PRN (09:53)
[2018-05-30] MEDS: Heparin 5,000 UNITS/ML VIAL SC SCH ×3 (10:06→20:48)
[2018-05-30] MEDS: Insulin Glargine 80 UNITS in Pre-Filled Syringe 1 EACH SC SCH (10:06)
[2018-05-30 10:24] LABS: ALT (SGPT) 14 U/L (8-55); AST (SGOT) 19 U/L (5-34); Alkaline Phosphatase 112 U/L (40-150); Anion Gap 12 mmol/L (10-20); BUN (Urea Nitrogen) 12 mg/dL (8.4-25.7); Bilirubin, Total 0.5 mg/dL (0.2-1.2); Calc. Creatinine Clearance 169 mL/min (70-130); Calcium 7.6 mg/dL (7.8-10.44); Carbon Dioxide 21 mmol/L (23-31); Chloride 109 mmol/L (98-107); Dilantin 9.2 ug/mL (10.0-20.0); Estimated GFR-MDRD Greater than 90; Globulin 2.8 g/dL (2.4-3.5); Glucose 124 mg/dL (80-115); Magnesium 1.2 mg/dL (1.6-2.6); Potassium 3.5 mmol/L (3.5-5.1); Protein, Total 5.8 g/dL (5.8-8.1); Sodium 138 mmol/L (136-145)
[2018-05-30 10:25] LABS: Phosphorus 1.3 mg/dL (2.3-4.7)
--- NOTE | 2018-05-30 13:42 | PDOC.FM ---
- Subjective Subjective: Patient is fatigued this AM but is answering questions appropriately. at bedside reports no issues or concerns at this time, and feels he is slowly improving. Nursing reports no issues overnight with VSS. - Objective MAR Reviewed: Yes Vital Signs & Weight: Vital Signs (12 hours) Temp Pulse Pulse Pulse Resp BP BP 05/30/18 12:00 97.9 F 76 16 05/30/18 09:52 71 149/67 H 05/30/18 09:51 71 05/30/18 09:50 71 149/67 H 05/30/18 08:47 74 70 137/74 05/30/18 08:00 98.1 F 71 18 05/30/18 07:30 05/30/18 04:00 97.5 F L 68 16 BP BP Pulse Ox 05/30/18 12:00 149/67 H 96 05/30/18 09:52 05/30/18 09:51 05/30/18 09:50 05/30/18 08:47 151/73 H 05/30/18 08:00 149/67 H 98 05/30/18 07:30 98 05/30/18 04:00 157/72 H 98 Weight Admit Weight 122.425 kg Weight 119.323 kg I&O: 05/29/18 05/30/18 05/31/18 06:59 06:59 06:59 Intake Total 900 920 600 Output Total 825 1450 300 Balance 75 -530 300 Result Diagrams: 06/01/18 05:00 06/01/18 05:00 Phys Exam - Physical Examination Constitutional: NAD HEENT: moist MMs Neck: supple Respiratory: no wheezing, no rales Cardiovascular: RRR, no significant murmur Gastrointestinal: soft, non-tender trace pitting edema bilaterally to ankles Psychiatric: normal affect, A&O x 3 Dx/Plan (1) Encephalitis due to human herpes simplex virus (HSV) Code(s): B00.4 - HERPESVIRAL ENCEPHALITIS Status: Suspected (2) Acute respiratory failure with hypoxia Code(s): J96.01 - ACUTE RESPIRATORY FAILURE WITH HYPOXIA Status: Resolved (3) SIRS (systemic inflammatory response syndrome) Code(s): R65.10 - SIRS OF NON-INFECTIOUS ORIGIN W/O ACUTE ORGAN DYSFUNCTION Status: Resolved (4) Hyponatremia Code(s): E87.1 - HYPO-OSMOLALITY AND HYPONATREMIA Status: Acute (5) Seizures Code(s): R56.9 - UNSPECIFIED CONVULSIONS Status: Acute (6) Tachycardia Code(s): R00.0 - TACHYCARDIA, UNSPECIFIED Status: Acute (7) Adrenal insufficiency Code(s): E27.40 - UNSPECIFIED ADRENOCORTICAL INSUFFICIENCY Status: Suspected (8) CAD (coronary artery disease) Code(s): I25.10 - ATHSCL HEART DISEASE OF [place] CORONARY ARTERY W/O ANG PCTRS Status: Chronic Qualifiers: Coronary Disease-Associated Artery/Lesion type: [place] artery Associated angina: without angina (9) CKD (chronic kidney disease) stage 3, GFR 30-59 ml/min Status: Chronic (10) COPD (chronic obstructive pulmonary disease) Status: Chronic Qualifiers: COPD type: COPD with acute exacerbation Qualified Code(s): J44.1 - Chronic obstructive pulmonary disease with (acute) exacerbation (11) GERD (gastroesophageal reflux disease) Code(s): K21.9 - GASTRO-ESOPHAGEAL REFLUX DISEASE WITHOUT ESOPHAGITIS Status: Chronic (12) Hyperlipidemia Code(s): E78.5 - HYPERLIPIDEMIA, UNSPECIFIED Status: Chronic (13) IDDM (insulin dependent diabetes mellitus) Code(s): E11.9 - TYPE 2 DIABETES MELLITUS WITHOUT COMPLICATIONS; Z79.4 - HALFWAY (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 OF INSULIN Status: Chronic (14) Hypothyroid Code(s): E03.9 - HYPOTHYROIDISM, UNSPECIFIED Status: Chronic (15) Prostate cancer Code(s): C61 - MALIGNANT NEOPLASM OF PROSTATE Status: Chronic (16) Normocytic anemia Code(s): D64.9 - ANEMIA, UNSPECIFIED Status: Chronic (17) Morbid obesity with BMI of 40.0-44.9, adult Code(s): E66.01 - MORBID (SEVERE) OBESITY DUE TO EXCESS CALORIES; Z68.41 - BODY MASS INDEX (BMI) 40.0-44.9, ADULT Status: Chronic (18) JUDI on CPAP Code(s): G47.33 - OBSTRUCTIVE SLEEP APNEA (ADULT) (PEDIATRIC) Status: Chronic (19) Hx of kidney transplant Status: Chronic - Plan Plan: HSV encephalitis: Recommendations per ID, patient has finished Acyclovir. Patient has had temporal lobe epileptiform activity by EEG, likely related to infection. Will continue fosphenytoin per Neurology recommendations. Adrenal insufficiency: continue steroid taper Acute hypoxic respiratory failure: resolved- continue to monitor O2 sats. Continue CPAP at night Hypokalemia: 3.5 this AM. Continue monitoring and replacement as indicated Hypomagnesemia: 1.2 this AM. Replace today and recheck in AM Hypophosphatemia: 1.3 this morning. Start daily Phos-nak with recheck in AM Protein calorie malnutrition: albumin and pre-albumin low. Continue current diet. DMII: continue home medications. aggressive SSI, accuchecks qACHS Hx of Prostate cancer w/ mets to spine: continue home medications. No port at this time after extensive discussions with Heme/Onc and family. HLD: continue home medications Hx of Gout: continue home medications Patient stable for d/c to [facility], pending placement. Addendum - Attending - Attending Attestation Date/Time: 07/03/182124 I personally evaluated the patient and discussed the management with Dr. Patton on 05/30/18. I agree with the History, Examination, Assessment and Plan documented above with any addition or exceptions noted below. Pt. stable for d/c. Awaiting placement.
[2018-05-30] MEDS: Pantoprazole 40 MG GRANULES PACKET PO SCH (20:49)
[2018-05-30] MEDS: Ondansetron ODT 4 MG TAB PO PRN (20:51)
[2018-05-31] MEDS: HumaLOG 300 UNITS/3 ML VIAL SC PRN ×4 (04:31→20:54)
[2018-05-31] MEDS: Abiraterone Acetate [Zytiga] 1,000 MG PO SCH (05:20)
[2018-05-31] MEDS: Tacrolimus 0.5 MG CAP PO SCH ×2 (09:02→20:53)
[2018-05-31] MEDS: traMADol HCl 50 MG TAB PO PRN (09:03)
[2018-05-31] MEDS: Heparin 5,000 UNITS/ML VIAL SC SCH ×3 (09:04→20:51)
[2018-05-31] MEDS: Montelukast Sodium 10 mg Tablet PO SCH (09:04)
[2018-05-31] MEDS: Digoxin 0.125 MG TAB PO SCH (09:04)
[2018-05-31] MEDS: Mycophenolate 250 MG CAP PO SCH ×2 (09:04→20:52)
[2018-05-31] MEDS: Calcium Carbonate 500 MG ChewTAB PO SCH ×2 (09:04→20:51)
[2018-05-31] MEDS: Aspirin 325 mg Enteric Coated Tablet PO SCH (09:05)
[2018-05-31] MEDS: Calcitriol 0.25 MCG CAP PO SCH (09:05)
[2018-05-31] MEDS: Magnesium Oxide 400 MG TAB PO SCH (09:05)
[2018-05-31] MEDS: Amlodipine 5 MG TAB PO SCH (09:05)
[2018-05-31] MEDS: Atorvastatin Calcium 10 MG TAB PO SCH (09:06)
[2018-05-31] MEDS: predniSONE 20 MG TAB PO SCH ×2 (09:06→20:53)
[2018-05-31] MEDS: Polyethylene Glycol 3350 17 GM Packet PO SCH (09:06)
[2018-05-31] MEDS: Docusate 100 MG CAP PO SCH ×2 (09:06→20:51)
[2018-05-31] MEDS: Loratadine 10 MG TAB PO SCH (09:06)
[2018-05-31] MEDS: Insulin Glargine 80 UNITS in Pre-Filled Syringe 1 EACH SC SCH (09:06)
[2018-05-31] MEDS: Allopurinol 300 MG TAB PO SCH (09:07)
[2018-05-31] MEDS: Bumetanide 1 MG TAB PO SCH ×2 (10:23→15:42)
--- NOTE | 2018-05-31 14:11 | PDOC.FM ---
- Subjective Subjective: Patient doing well this AM. No significant overnight events. Patient's daughter was at bedside this AM. Patient was alert and conversational. He states that he is feeling good. He does endorse some back pain and had just asked the nurse for some of his pain medication. Daughter was concerned about placement issue. She would prefer her father go to rehab, and the patient also desires rehab. - Objective MAR Reviewed: Yes Vital Signs & Weight: Vital Signs (12 hours) Temp Pulse Resp BP BP Pulse Ox 05/31/18 12:00 97.3 F L 72 20 143/73 H 99 05/31/18 09:06 67 139/68 05/31/18 09:05 67 139/68 05/31/18 09:04 73 05/31/18 07:59 97.9 F 67 20 139/68 98 05/31/18 07:03 97 05/31/18 04:00 97.9 F 72 18 150/72 H 97 Weight Admit Weight 122.425 kg Weight 119.323 kg I&O: 05/30/18 05/31/18 06/01/18 06:59 06:59 06:59 Intake Total 920 1140 840 Output Total 1450 850 Balance -530 290 840 Result Diagrams: 05/29/18 07:22 05/30/18 09:36 EKG Reviewed by me: Yes Radiology Reviewed by me: Yes <Cintia Jackson - Last Filed: 05/31/18 14:55> - Objective Vital Signs & Weight: Vital Signs (12 hours) Temp Pulse Resp BP BP Pulse Ox 05/31/18 15:34 97.8 F 63 16 138/71 97 05/31/18 12:00 97.3 F L 72 20 143/73 H 99 05/31/18 09:06 67 139/68 05/31/18 09:05 67 139/68 05/31/18 09:04 73 05/31/18 07:59 97.9 F 67 20 139/68 98 05/31/18 07:03 97 Weight Admit Weight 122.425 kg Weight 119.323 kg I&O: 05/30/18 05/31/18 06/01/18 06:59 06:59 06:59 Intake Total 920 1140 840 Output Total 1450 850 Balance -530 290 840 Result Diagrams: 05/29/18 07:22 05/30/18 09:36 <Zaki Garcia - Last Filed: 05/31/18 16:14> Phys Exam - Physical Examination Constitutional: NAD HEENT: moist MMs Neck: supple Respiratory: no wheezing, clear to auscultation bilateral Cardiovascular: no significant murmur Few PACs Gastrointestinal: soft, no distention, positive bowel sounds Musculoskeletal: pulses present Trace bilateral LE edema Neurological: non-focal Psychiatric: normal affect, A&O x 3 Skin: cap refill <2 seconds <RenettaJonoCintia - Last Filed: 05/31/18 14:55> Dx/Plan (1) Encephalitis due to human herpes simplex virus (HSV) Code(s): B00.4 - HERPESVIRAL ENCEPHALITIS Status: Suspected (2) Acute respiratory failure with hypoxia Code(s): J96.01 - ACUTE RESPIRATORY FAILURE WITH HYPOXIA Status: Resolved (3) SIRS (systemic inflammatory response syndrome) Code(s): R65.10 - SIRS OF NON-INFECTIOUS ORIGIN W/O ACUTE ORGAN DYSFUNCTION Status: Resolved (4) Hyponatremia Code(s): E87.1 - HYPO-OSMOLALITY AND HYPONATREMIA Status: Acute (5) CAD (coronary artery disease) Code(s): I25.10 - ATHSCL HEART DISEASE OF [place] CORONARY ARTERY W/O ANG PCTRS Status: Chronic Qualifiers: Coronary Disease-Associated Artery/Lesion type: [place] artery Associated angina: without angina (6) COPD (chronic obstructive pulmonary disease) Status: Chronic Qualifiers: COPD type: COPD with acute exacerbation Qualified Code(s): J44.1 - Chronic obstructive pulmonary disease with (acute) exacerbation (7) GERD (gastroesophageal reflux disease) Code(s): K21.9 - GASTRO-ESOPHAGEAL REFLUX DISEASE WITHOUT ESOPHAGITIS Status: Chronic (8) Hypothyroid Code(s): E03.9 - HYPOTHYROIDISM, UNSPECIFIED Status: Chronic (9) Normocytic anemia Code(s): D64.9 - ANEMIA, UNSPECIFIED Status: Chronic (10) Prostate cancer Code(s): C61 - MALIGNANT NEOPLASM OF PROSTATE Status: Chronic (11) CKD (chronic kidney disease) stage 3, GFR 30-59 ml/min Status: Chronic (12) Hx of kidney transplant Status: Chronic (13) Hyperlipidemia Code(s): E78.5 - HYPERLIPIDEMIA, UNSPECIFIED Status: Chronic (14) IDDM (insulin dependent diabetes mellitus) Code(s): E11.9 - TYPE 2 DIABETES MELLITUS WITHOUT COMPLICATIONS; Z79.4 - GROUP HOME (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 OF INSULIN Status: Chronic (15) Morbid obesity with BMI of 40.0-44.9, adult Code(s): E66.01 - MORBID (SEVERE) OBESITY DUE TO EXCESS CALORIES; Z68.41 - BODY MASS INDEX (BMI) 40.0-44.9, ADULT Status: Chronic (16) JUDI on CPAP Code(s): G47.33 - OBSTRUCTIVE SLEEP APNEA (ADULT) (PEDIATRIC) Status: Chronic (17) Tachycardia Code(s): R00.0 - TACHYCARDIA, UNSPECIFIED Status: Acute (18) Seizures Code(s): R56.9 - UNSPECIFIED CONVULSIONS Status: Acute (19) Adrenal insufficiency Code(s): E27.40 - UNSPECIFIED ADRENOCORTICAL INSUFFICIENCY Status: Suspected - Plan Plan: 68 year old male presents with encephalopathy 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 Will recheck level tomorrow as dose was increased less than 2 days ago Metabolic encephalopathy 2/2 above, resolved - see above plans Tachycardia suspicious for atrial flutter vs. atrial tachycardia, resolved - Continue cardizem and digoxin - Patient has been in SR with occasional PAC's Acute hypoxic respiratory failure. resolved - Likely 2/2 encephalopathy and JUDI - Continue CPAP as tolerated Adrenal insufficiency - Likely 2/2 to recent severe illness - Continue steroids; will start prednisone 20 mg PO BID x1 wk, prednisone 10 mg PO BID x1 wk, prednisone 5 mg PO BID x1 wk, and then prednisone 5 mg PO daily indefinitely Hypokalemia - Replace electrolytes PRN - Recheck in AM Hypomagnesemia - Replace electrolytes; on MgO PO - Recheck in AM Hypophosphatemia - Replace electrolytes; On supplementation PO - Recheck in AM Right wrist pain - XR neg for fracture - Spica thumb splint placed; was not on this AM. No pain - Swelling has improved, but still visible Acute on Chronic Kidney Disease, s/p kidney transplant - Improved Protein calorie malnutrition - Albumin low - Tolerating PO, but not eating much. Supplement with glucerna Anemia - Likely 2/2 hypoproliferation of BM - Stable at 7.3; will recheck CBC in AM Hyponatremia, resolved DM - [place] home medications - Aggressive SS, ACHS accuchecks - BG better controlled, although not ideal - Continue to monitor and adjust insulin as necessary Hx of Prostate cancer w/ mets to spine - continue home medications - Diffuse mets based on bone scan - Patient was supposed to undergo chemotherapy last week. Since his hospitalization that was put on hold. Discussed case with heme/onc. They do not think patient is a good candidate for chemo currently and recommend against port placement at this time. Discussed with patient's in detail. HLD - continue home medications Hx of Gout - continue home medications JUDI on CPAP - aware. Constipation - Continue bowel regimen DISPO: Stable. CODE: FULL VTE: heparin Dispo: Stable. Prognosis guarded. Patient ready for d/c to SNF or Inpatient Rehab. Patient denied to inpatient rehab today 05/31 d/t PT requirement. We will plan on proceeding with SNF at this time. During peer to peer, it was discussed that if patient meets the requirements from SNF, they would accept him into inpatient rehab from there. This was discussed with patient. I will discuss with family when they arrive. <Cintia Jackson - Last Filed: 05/31/18 14:55> (1) CAD (coronary artery disease) Code(s): I25.10 - ATHSCL HEART DISEASE OF [place] CORONARY ARTERY W/O ANG PCTRS Status: Chronic Qualifiers: Coronary Disease-Associated Artery/Lesion type: [place] artery Associated angina: without angina (2) Prostate cancer Code(s): C61 - MALIGNANT NEOPLASM OF PROSTATE Status: Chronic (3) SIRS (systemic inflammatory response syndrome) Code(s): R65.10 - SIRS OF NON-INFECTIOUS ORIGIN W/O ACUTE ORGAN DYSFUNCTION Status: Resolved (4) Hx of kidney transplant Status: Chronic (5) Morbid obesity with BMI of 40.0-44.9, adult Code(s): E66.01 - MORBID (SEVERE) OBESITY DUE TO EXCESS CALORIES; Z68.41 - BODY MASS INDEX (BMI) 40.0-44.9, ADULT Status: Chronic (6) Normocytic anemia Code(s): D64.9 - ANEMIA, UNSPECIFIED Status: Chronic (7) Hyperlipidemia Code(s): E78.5 - HYPERLIPIDEMIA, UNSPECIFIED Status: Chronic (8) JUDI on CPAP Code(s): G47.33 - OBSTRUCTIVE SLEEP APNEA (ADULT) (PEDIATRIC) Status: Chronic (9) Hyponatremia Code(s): E87.1 - HYPO-OSMOLALITY AND HYPONATREMIA Status: Acute <Zaki Garcia - Last Filed: 05/31/18 16:14> Attending Addendum - Attending Addendum Date/Time: 05/31/18 [id number] I personally evaluated the patient and discussed the management with Dr. Jackson. I agree with and repeated the History, Examination, Assessment and Plan documented above with any addition or exceptions noted below. D/c acyclovir as directed by Dr. Gerard. Continue other medications. <Zaki Garcia - Last Filed: 05/31/18 16:14>
[2018-05-31] MEDS: Pantoprazole 40 MG GRANULES PACKET PO SCH (20:52)
[2018-06-01] MEDS: HumaLOG 300 UNITS/3 ML VIAL SC PRN ×3 (05:34→17:12)
[2018-06-01] MEDS: Abiraterone Acetate [Zytiga] 1,000 MG PO SCH (05:37)
[2018-06-01 05:39] LABS: #Eosinphils 0.1 thou/uL (0.0-0.7); #Lymphocytes 1.1 thou/uL (1.20-3.40); #Monocytes 0.7 thou/uL (0.11-0.59); #Neutrophils 7.7 thou/uL (1.40-6.50); %Basophils 0.1 % (0.0-1.0); %Eosinophils 1.1 % (0.0-10.0); %Lymphocytes 11.6 % (21.0-51.0); %Monocytes 7.6 % (0.0-10.0); %Neutrophils 79.6 % (42.0-75.0); Hemoglobin 8.5 g/dL (14.0-18.0); Mean Corpuscular HGB CONC 30.9 g/dL (32.0-36.0); Mean Corpuscular Hemoglobin 28.7 pg (27.0-31.0); Mean Corpuscular Volume 92.9 fL (78.0-98.0); Platelet Count 176 thou/uL (130-400); RBC Distribution Width 20.1 % (11.5-14.5); Red Blood Cell (RBC) Count 2.94 mill/uL (4.70-6.10); White Blood Cell (WBC) Count 9.7 thou/uL (4.8-10.8)
[2018-06-01 05:55] LABS: ALT (SGPT) 14 U/L (8-55); AST (SGOT) 12 U/L (5-34); Albumin 3.1 g/dL (3.4-4.8); Alkaline Phosphatase 110 U/L (40-150); Anion Gap 12 mmol/L (10-20); BUN (Urea Nitrogen) 11 mg/dL (8.4-25.7); Bilirubin, Total 0.4 mg/dL (0.2-1.2); Calc. Creatinine Clearance 147 mL/min (70-130); Calcium 8.2 mg/dL (7.8-10.44); Carbon Dioxide 22 mmol/L (23-31); Chloride 106 mmol/L (98-107); Estimated GFR-MDRD Greater than 90; Globulin 2.7 g/dL (2.4-3.5); Glucose 248 mg/dL (80-115); Magnesium 1.5 mg/dL (1.6-2.6); Phosphorus 1.7 mg/dL (2.3-4.7); Potassium 4.3 mmol/L (3.5-5.1); Protein, Total 5.8 g/dL (5.8-8.1); Sodium 136 mmol/L (136-145)
--- NOTE | 2018-06-01 07:34 | PDOC.FM ---
- Subjective Subjective: Patient sitting up in bed this AM eating breakfast. No significant overnight events. Patient's by bedside. They understand that patient does not qualify for IP rehab at this time and have signed choice letters for [facility] and [facility]. - Objective MAR Reviewed: Yes Vital Signs & Weight: Vital Signs (12 hours) Temp Pulse Resp BP Pulse Ox 06/01/18 04:00 98.2 F 69 19 160/74 H 100 06/01/18 00:00 98.0 F 66 18 125/49 L 98 05/31/18 20:10 97 05/31/18 20:00 98.3 F 68 19 120/59 L 97 Weight Admit Weight 122.425 kg Weight 119.323 kg I&O: 05/31/18 06/01/18 06/02/18 06:59 06:59 06:59 Intake Total 1140 2360 Output Total 850 600 Balance 290 1760 Result Diagrams: 06/01/18 05:00 06/01/18 05:00 EKG Reviewed by me: Yes Radiology Reviewed by me: Yes <Cintia Jackson - Last Filed: 06/01/18 08:12> - Objective Vital Signs & Weight: Vital Signs (12 hours) Temp Pulse Resp BP BP Pulse Ox 06/01/18 09:20 74 06/01/18 09:08 161/83 H 06/01/18 09:05 69 161/83 H 06/01/18 07:48 97.7 F 69 18 161/83 H 100 06/01/18 07:38 100 06/01/18 04:00 98.2 F 69 19 160/74 H 100 06/01/18 00:00 98.0 F 66 18 125/49 L 98 Weight Admit Weight 122.425 kg Weight 119.323 kg I&O: 05/31/18 06/01/18 06/02/18 06:59 06:59 06:59 Intake Total 1140 2360 Output Total 850 600 Balance 290 1760 Result Diagrams: 06/01/18 05:00 06/01/18 05:00 <Zaki Garcia - Last Filed: 06/01/18 11:28> Phys Exam - Physical Examination Constitutional: NAD HEENT: moist MMs Neck: supple Respiratory: clear to auscultation bilateral Cardiovascular: RRR, no significant murmur Gastrointestinal: soft, no distention, positive bowel sounds Musculoskeletal: pulses present trace bilateral lower extremity edema Neurological: non-focal Psychiatric: A&O x 3 Skin: cap refill <2 seconds <Cintia Jackson - Last Filed: 06/01/18 08:12> Dx/Plan (1) Encephalitis due to human herpes simplex virus (HSV) Code(s): B00.4 - HERPESVIRAL ENCEPHALITIS Status: Suspected (2) Acute respiratory failure with hypoxia Code(s): J96.01 - ACUTE RESPIRATORY FAILURE WITH HYPOXIA Status: Resolved (3) SIRS (systemic inflammatory response syndrome) Code(s): R65.10 - SIRS OF NON-INFECTIOUS ORIGIN W/O ACUTE ORGAN DYSFUNCTION Status: Resolved (4) Hyponatremia Code(s): E87.1 - HYPO-OSMOLALITY AND HYPONATREMIA Status: Acute (5) CAD (coronary artery disease) Code(s): I25.10 - ATHSCL HEART DISEASE OF [place] CORONARY ARTERY W/O ANG PCTRS Status: Chronic Qualifiers: Coronary Disease-Associated Artery/Lesion type: [place] artery Associated angina: without angina (6) COPD (chronic obstructive pulmonary disease) Status: Chronic Qualifiers: COPD type: COPD with acute exacerbation Qualified Code(s): J44.1 - Chronic obstructive pulmonary disease with (acute) exacerbation (7) GERD (gastroesophageal reflux disease) Code(s): K21.9 - GASTRO-ESOPHAGEAL REFLUX DISEASE WITHOUT ESOPHAGITIS Status: Chronic (8) Hypothyroid Code(s): E03.9 - HYPOTHYROIDISM, UNSPECIFIED Status: Chronic (9) Normocytic anemia Code(s): D64.9 - ANEMIA, UNSPECIFIED Status: Chronic (10) Prostate cancer Code(s): C61 - MALIGNANT NEOPLASM OF PROSTATE Status: Chronic (11) CKD (chronic kidney disease) stage 3, GFR 30-59 ml/min Status: Chronic (12) Hx of kidney transplant Status: Chronic (13) Hyperlipidemia Code(s): E78.5 - HYPERLIPIDEMIA, UNSPECIFIED Status: Chronic (14) IDDM (insulin dependent diabetes mellitus) Code(s): E11.9 - TYPE 2 DIABETES MELLITUS WITHOUT COMPLICATIONS; 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 Status: Chronic (15) Morbid obesity with BMI of 40.0-44.9, adult Code(s): E66.01 - MORBID (SEVERE) OBESITY DUE TO EXCESS CALORIES; Z68.41 - BODY MASS INDEX (BMI) 40.0-44.9, ADULT Status: Chronic (16) JUDI on CPAP Code(s): G47.33 - OBSTRUCTIVE SLEEP APNEA (ADULT) (PEDIATRIC) Status: Chronic (17) Tachycardia Code(s): R00.0 - TACHYCARDIA, UNSPECIFIED Status: Acute (18) Seizures Code(s): R56.9 - UNSPECIFIED CONVULSIONS Status: Acute (19) Adrenal insufficiency Code(s): E27.40 - UNSPECIFIED ADRENOCORTICAL INSUFFICIENCY Status: Suspected - Plan Plan: 68 year old male presents with encephalopathy 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 atrial tachycardia, resolved - Continue cardizem and digoxin - Patient has been in SR with occasional PAC's Acute hypoxic respiratory failure. resolved - Likely 2/2 encephalopathy and JUDI - Continue CPAP as tolerated Adrenal insufficiency - Likely 2/2 to recent severe illness - Continue steroids; will start prednisone 20 mg PO BID x1 wk, prednisone 10 mg PO BID x1 wk, prednisone 5 mg PO BID x1 wk, and then prednisone 5 mg PO daily indefinitely Hypokalemia - Replace electrolytes PRN - Recheck in AM Hypomagnesemia - Replace electrolytes; on MgO PO BID Hypophosphatemia - Replace electrolytes; On supplementation PO Right wrist pain - XR neg for fracture Acute on Chronic Kidney Disease, s/p kidney transplant - Improved Protein calorie malnutrition - Albumin low - Tolerating PO, but not eating much. Supplement with glucerna Anemia - Likely 2/2 hypoproliferation of BM - Stable at 7.3; Hg >8 this AM Hyponatremia, resolved DM - [place]ue home medications - Aggressive SS, ACHS accuchecks - BG better controlled, although not ideal - Continue to monitor and adjust insulin as necessary Hx of Prostate cancer w/ mets to spine - continue home medications - Diffuse mets based on bone scan - Patient was supposed to undergo chemotherapy last week. Since his hospitalization that was put on hold. Discussed case with heme/onc. They do not think patient is a good candidate for chemo currently and recommend against port placement at this time. Discussed with patient's in detail. HLD - continue home medications Hx of Gout - continue home medications JUDI on CPAP - aware. Constipation - Continue bowel regimen DISPO: Stable. CODE: FULL VTE: heparin Dispo: Stable. Prognosis guarded. Patient ready for d/c to SNF or Inpatient Rehab. Patient denied to inpatient rehab 05/31 d/t PT requirement. We will plan on proceeding with SNF at this time. During peer to peer, it was discussed that if patient meets the requirements from SNF, they would accept him into inpatient rehab from there. Family signed letters for SNF placement at [place] and [facility] yesterday. <Cintia Jackson - Last Filed: 06/01/18 08:12> (1) CAD (coronary artery disease) Code(s): I25.10 - ATHSCL HEART DISEASE OF [place] CORONARY ARTERY W/O ANG PCTRS Status: Chronic Qualifiers: Coronary Disease-Associated Artery/Lesion type: [place] artery Associated angina: without angina (2) Prostate cancer Code(s): C61 - MALIGNANT NEOPLASM OF PROSTATE Status: Chronic (3) SIRS (systemic inflammatory response syndrome) Code(s): R65.10 - SIRS OF NON-INFECTIOUS ORIGIN W/O ACUTE ORGAN DYSFUNCTION Status: Resolved (4) Hx of kidney transplant Status: Chronic (5) Morbid obesity with BMI of 40.0-44.9, adult Code(s): E66.01 - MORBID (SEVERE) OBESITY DUE TO EXCESS CALORIES; Z68.41 - BODY MASS INDEX (BMI) 40.0-44.9, ADULT Status: Chronic (6) Normocytic anemia Code(s): D64.9 - ANEMIA, UNSPECIFIED Status: Chronic (7) Hyperlipidemia Code(s): E78.5 - HYPERLIPIDEMIA, UNSPECIFIED Status: Chronic (8) JUDI on CPAP Code(s): G47.33 - OBSTRUCTIVE SLEEP APNEA (ADULT) (PEDIATRIC) Status: Chronic (9) Hyponatremia Code(s): E87.1 - HYPO-OSMOLALITY AND HYPONATREMIA Status: Acute <Zaki Garcia - Last Filed: 06/01/18 11:28> Attending Addendum - Attending Addendum Date/Time: 06/01/18 1128 I personally evaluated the patient and discussed the management with Dr. Jackson. I agree with and repeated the History, Examination, Assessment and Plan documented above with any addition or exceptions noted below. Awaiting placement. <Zaki Garcia - Last Filed: 06/01/18 11:28>
[2018-06-01] MEDS: Ondansetron ODT 8 MG TAB PO PRN (09:04)
[2018-06-01] MEDS: Polyethylene Glycol 3350 17 GM Packet PO SCH (09:04)
[2018-06-01] MEDS: traMADol HCl 50 MG TAB PO PRN ×2 (09:04→21:54)
[2018-06-01] MEDS: Amlodipine 5 MG TAB PO SCH (09:05)
[2018-06-01] MEDS: Heparin 5,000 UNITS/ML VIAL SC SCH ×3 (09:06→21:57)
[2018-06-01] MEDS: Bumetanide 1 MG TAB PO SCH ×2 (09:07→15:52)
[2018-06-01] MEDS: Calcium Carbonate 500 MG ChewTAB PO SCH ×2 (09:07→21:54)
[2018-06-01] MEDS: Docusate 100 MG CAP PO SCH ×2 (09:07→21:54)
[2018-06-01] MEDS: Calcitriol 0.25 MCG CAP PO SCH (09:08)
[2018-06-01] MEDS: Montelukast Sodium 10 mg Tablet PO SCH (09:08)
[2018-06-01] MEDS: Loratadine 10 MG TAB PO SCH (09:08)
[2018-06-01] MEDS: Allopurinol 300 MG TAB PO SCH (09:08)
[2018-06-01] MEDS: Aspirin 325 mg Enteric Coated Tablet PO SCH (09:08)
[2018-06-01] MEDS: predniSONE 20 MG TAB PO SCH ×2 (09:09→21:55)
[2018-06-01] MEDS: Atorvastatin Calcium 10 MG TAB PO SCH (09:09)
[2018-06-01] MEDS: Mycophenolate 250 MG CAP PO SCH ×2 (09:09→22:07)
[2018-06-01] MEDS: Tacrolimus 0.5 MG CAP PO SCH ×2 (09:09→21:56)
[2018-06-01] MEDS: Insulin Glargine 80 UNITS in Pre-Filled Syringe 1 EACH SC SCH (09:10)
[2018-06-01] MEDS: Digoxin 0.125 MG TAB PO SCH (09:20)
[2018-06-01] MEDS: Magnesium Oxide 400 MG TAB PO SCH ×2 (11:00→21:54)
[2018-06-01] MEDS: Pantoprazole 40 MG GRANULES PACKET PO SCH (21:54)
[2018-06-02] MEDS: Abiraterone Acetate [Zytiga] 1,000 MG PO SCH (06:27)
--- NOTE | 2018-06-02 07:29 | PDOC.FM ---
- Subjective Subjective: Patient doing well this AM. No significant overnight events. Patient denies being in any pain this AM. Family is frustrated because patient was denied from rehaba and several preferred SNF's. They now desire to go home with home health. - Objective MAR Reviewed: Yes Vital Signs & Weight: Vital Signs (12 hours) Temp Pulse Resp BP Pulse Ox 06/02/18 04:00 98.0 F 66 19 148/57 H 98 06/02/18 00:00 97.8 F 72 18 141/62 H 100 06/01/18 20:45 98 06/01/18 20:00 97.6 F 68 18 139/60 98 Weight Admit Weight 122.425 kg Weight 119.323 kg I&O: 06/01/18 06/02/18 06/03/18 06:59 06:59 06:59 Intake Total 2360 1080 Output Total 600 500 Balance 1760 580 Result Diagrams: 06/01/18 05:00 06/01/18 05:00 EKG Reviewed by me: Yes Radiology Reviewed by me: Yes <Cintia Jackson - Last Filed: 06/02/18 11:43> - Objective Vital Signs & Weight: Vital Signs (12 hours) Temp Pulse Pulse Pulse Pulse Resp BP 06/02/18 15:51 98 F 61 16 06/02/18 11:47 97.8 F 64 16 06/02/18 11:30 65 65 06/02/18 10:36 65 68 06/02/18 08:34 65 141/73 H 06/02/18 08:33 65 141/73 H 06/02/18 08:00 98 F 65 18 BP BP BP BP Pulse Ox 06/02/18 15:51 140/66 94 L 06/02/18 11:47 128/65 98 06/02/18 11:30 139/67 128/65 06/02/18 10:36 129/55 L 144/68 H 06/02/18 08:34 06/02/18 08:33 06/02/18 08:00 141/73 H 98 Weight Admit Weight 122.425 kg Weight 119.323 kg I&O: 06/01/18 06/02/18 06/03/18 06:59 06:59 06:59 Intake Total 2360 1680 600 Output Total 600 500 Balance 1760 1180 600 Result Diagrams: 06/01/18 05:00 06/01/18 05:00 <Garcia,Brandon - Last Filed: 06/02/18 16:41> Phys Exam - Physical Examination Constitutional: NAD HEENT: moist MMs Respiratory: no wheezing, clear to auscultation bilateral Cardiovascular: RRR, no significant murmur Gastrointestinal: soft, no distention, positive bowel sounds Musculoskeletal: pulses present trace bilateral lower extremity edema Neurological: non-focal Psychiatric: normal affect, A&O x 3 Skin: cap refill <2 seconds <Cintia Jackson - Last Filed: 06/02/18 11:43> Dx/Plan (1) Encephalitis due to human herpes simplex virus (HSV) Code(s): B00.4 - HERPESVIRAL ENCEPHALITIS Status: Suspected (2) Acute respiratory failure with hypoxia Code(s): J96.01 - ACUTE RESPIRATORY FAILURE WITH HYPOXIA Status: Resolved (3) SIRS (systemic inflammatory response syndrome) Code(s): R65.10 - SIRS OF NON-INFECTIOUS ORIGIN W/O ACUTE ORGAN DYSFUNCTION Status: Resolved (4) Hyponatremia Code(s): E87.1 - HYPO-OSMOLALITY AND HYPONATREMIA Status: Acute (5) CAD (coronary artery disease) Code(s): I25.10 - ATHSCL HEART DISEASE OF [place] CORONARY ARTERY W/O ANG PCTRS Status: Chronic Qualifiers: Coronary Disease-Associated Artery/Lesion type: [place] artery Associated angina: without angina (6) COPD (chronic obstructive pulmonary disease) Status: Chronic Qualifiers: COPD type: COPD with acute exacerbation Qualified Code(s): J44.1 - Chronic obstructive pulmonary disease with (acute) exacerbation (7) GERD (gastroesophageal reflux disease) Code(s): K21.9 - GASTRO-ESOPHAGEAL REFLUX DISEASE WITHOUT ESOPHAGITIS Status: Chronic (8) Hypothyroid Code(s): E03.9 - HYPOTHYROIDISM, UNSPECIFIED Status: Chronic (9) Normocytic anemia Code(s): D64.9 - ANEMIA, UNSPECIFIED Status: Chronic (10) Prostate cancer Code(s): C61 - MALIGNANT NEOPLASM OF PROSTATE Status: Chronic (11) CKD (chronic kidney disease) stage 3, GFR 30-59 ml/min Status: Chronic (12) Hx of kidney transplant Status: Chronic (13) Hyperlipidemia Code(s): E78.5 - HYPERLIPIDEMIA, UNSPECIFIED Status: Chronic (14) IDDM (insulin dependent diabetes mellitus) Code(s): E11.9 - TYPE 2 DIABETES MELLITUS WITHOUT COMPLICATIONS; 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 Status: Chronic (15) Morbid obesity with BMI of 40.0-44.9, adult Code(s): E66.01 - MORBID (SEVERE) OBESITY DUE TO EXCESS CALORIES; Z68.41 - BODY MASS INDEX (BMI) 40.0-44.9, ADULT Status: Chronic (16) JUDI on CPAP Code(s): G47.33 - OBSTRUCTIVE SLEEP APNEA (ADULT) (PEDIATRIC) Status: Chronic (17) Tachycardia Code(s): R00.0 - TACHYCARDIA, UNSPECIFIED Status: Acute (18) Seizures Code(s): R56.9 - UNSPECIFIED CONVULSIONS Status: Acute (19) Adrenal insufficiency Code(s): E27.40 - UNSPECIFIED ADRENOCORTICAL INSUFFICIENCY Status: Suspected - Plan Plan: 68 year old male presents with encephalopathy 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 atrial tachycardia, resolved - Continue cardizem and digoxin - Patient has been in SR with occasional PAC's Acute hypoxic respiratory failure. resolved - Likely 2/2 encephalopathy and JUDI - Continue CPAP as tolerated Adrenal insufficiency - Likely 2/2 to recent severe illness - Continue steroids; will start prednisone 20 mg PO BID x1 wk, prednisone 10 mg PO BID x1 wk, prednisone 5 mg PO BID x1 wk, and then prednisone 5 mg PO daily indefinitely Hypokalemia - Replace electrolytes PRN Hypomagnesemia - Replace electrolytes; on MgO PO BID Hypophosphatemia - Replace electrolytes; On supplementation PO Right wrist pain - XR neg for fracture Acute on Chronic Kidney Disease, s/p kidney transplant - Improved Protein calorie malnutrition - Albumin low - Tolerating PO, but not eating much. Supplement with glucerna Anemia - Likely 2/2 hypoproliferation of BM - Stable Hyponatremia, resolved DM - [place] home medications - Aggressive SS, ACHS accuchecks - BG better controlled, although not ideal - Continue to monitor and adjust insulin as necessary Hx of Prostate cancer w/ mets to spine - Continue home medications - Diffuse mets based on bone scan - Patient was supposed to undergo chemotherapy last week. Since his hospitalization that was put on hold. Discussed case with heme/onc. They do not think patient is a good candidate for chemo currently and recommend against port placement at this time. Discussed with patient's in detail. HLD - continue home medications Hx of Gout - continue home medications JUDI on CPAP - aware. Constipation - Continue bowel regimen DISPO: Stable. CODE: FULL VTE: heparin Dispo: Stable. Prognosis guarded. Patient was denied for IP rehab and several preferred SNF's. He now desires to go home with HH. Family agrees with that decision. They think they will be able to care for him at home. I will discuss with attending and patient's PCP regarding this decision. <Cintia Jackson - Last Filed: 06/02/18 11:43> (1) CAD (coronary artery disease) Code(s): I25.10 - ATHSCL HEART DISEASE OF [place] CORONARY ARTERY W/O ANG PCTRS Status: Chronic Qualifiers: Coronary Disease-Associated Artery/Lesion type: [place] artery Associated angina: without angina (2) Prostate cancer Code(s): C61 - MALIGNANT NEOPLASM OF PROSTATE Status: Chronic (3) SIRS (systemic inflammatory response syndrome) Code(s): R65.10 - SIRS OF NON-INFECTIOUS ORIGIN W/O ACUTE ORGAN DYSFUNCTION Status: Resolved (4) Hx of kidney transplant Status: Chronic (5) Morbid obesity with BMI of 40.0-44.9, adult Code(s): E66.01 - MORBID (SEVERE) OBESITY DUE TO EXCESS CALORIES; Z68.41 - BODY MASS INDEX (BMI) 40.0-44.9, ADULT Status: Chronic (6) Normocytic anemia Code(s): D64.9 - ANEMIA, UNSPECIFIED Status: Chronic (7) Hyperlipidemia Code(s): E78.5 - HYPERLIPIDEMIA, UNSPECIFIED Status: Chronic (8) JUDI on CPAP Code(s): G47.33 - OBSTRUCTIVE SLEEP APNEA (ADULT) (PEDIATRIC) Status: Chronic (9) Hyponatremia Code(s): E87.1 - HYPO-OSMOLALITY AND HYPONATREMIA Status: Acute <Zaki Garcia - Last Filed: 06/02/18 16:41> Attending Addendum - Attending Addendum Date/Time: 06/02/18 1640 I personally evaluated the patient and discussed the management with Dr. Jackson. I agree with the History, Examination, Assessment and Plan documented above with any addition or exceptions noted below. Attempting to get placement still. <Zaki Garcia - Last Filed: 06/02/18 16:41>
[2018-06-02] MEDS: Bumetanide 1 MG TAB PO SCH ×2 (08:28→15:58)
[2018-06-02] MEDS: Polyethylene Glycol 3350 17 GM Packet PO SCH (08:32)
[2018-06-02] MEDS: Calcium Carbonate 500 MG ChewTAB PO SCH ×2 (08:32→20:51)
[2018-06-02] MEDS: Aspirin 325 mg Enteric Coated Tablet PO SCH (08:33)
[2018-06-02] MEDS: Mycophenolate 250 MG CAP PO SCH ×2 (08:33→20:53)
[2018-06-02] MEDS: Atorvastatin Calcium 10 MG TAB PO SCH (08:33)
[2018-06-02] MEDS: Montelukast Sodium 10 mg Tablet PO SCH (08:33)
[2018-06-02] MEDS: predniSONE 20 MG TAB PO SCH ×2 (08:33→20:54)
[2018-06-02] MEDS: Digoxin 0.125 MG TAB PO SCH (08:33)
[2018-06-02] MEDS: Loratadine 10 MG TAB PO SCH (08:33)
[2018-06-02] MEDS: Calcitriol 0.25 MCG CAP PO SCH (08:33)
[2018-06-02] MEDS: Magnesium Oxide 400 MG TAB PO SCH ×2 (08:33→20:53)
[2018-06-02] MEDS: Allopurinol 300 MG TAB PO SCH (08:33)
[2018-06-02] MEDS: Tacrolimus 0.5 MG CAP PO SCH ×2 (08:34→20:54)
[2018-06-02] MEDS: Amlodipine 5 MG TAB PO SCH (08:34)
[2018-06-02] MEDS: Heparin 5,000 UNITS/ML VIAL SC SCH ×3 (08:34→20:52)
[2018-06-02] MEDS: Docusate 100 MG CAP PO SCH ×2 (08:34→20:52)
[2018-06-02] MEDS: Insulin Glargine 80 UNITS in Pre-Filled Syringe 1 EACH SC SCH (08:35)
[2018-06-02] MEDS: Ondansetron ODT 8 MG TAB PO PRN (10:57)
[2018-06-02] MEDS: traMADol HCl 50 MG TAB PO PRN (10:58)
[2018-06-02] MEDS: HumaLOG 300 UNITS/3 ML VIAL SC PRN ×2 (10:59→16:50)
[2018-06-02 13:15] VITALS: BMI 38.8
[2018-06-02] MEDS: Pantoprazole 40 MG GRANULES PACKET PO SCH (20:53)
[2018-06-03] MEDS: Abiraterone Acetate [Zytiga] 1,000 MG PO SCH (05:27)
[2018-06-03] MEDS: HumaLOG 300 UNITS/3 ML VIAL SC PRN ×2 (06:06→11:08)
--- NOTE | 2018-06-03 07:35 | PDOC.FM ---
- Subjective Subjective: Patient resting in bed this AM. No significant overnight events. Patient awaiting placement. - Objective MAR Reviewed: Yes Vital Signs & Weight: Vital Signs (12 hours) Temp Pulse Resp BP Pulse Ox 06/03/18 04:00 67 156/77 H 06/03/18 00:00 98.3 F 67 16 128/69 94 L 06/02/18 20:30 98 06/02/18 20:00 98.0 F 63 16 127/61 98 Weight Admit Weight 122.425 kg Weight 119.323 kg I&O: 06/02/18 06/03/18 06/04/18 06:59 06:59 06:59 Intake Total 1680 1930 Output Total 500 300 Balance 1180 1630 Result Diagrams: 06/01/18 05:00 06/01/18 05:00 EKG Reviewed by me: Yes Radiology Reviewed by me: Yes <Cintia Jackson - Last Filed: 06/03/18 07:36> - Objective Vital Signs & Weight: Weight Admit Weight 122.425 kg Weight 119.323 kg I&O: 06/03/18 06/04/18 06/05/18 06:59 06:59 06:59 Intake Total 1930 Output Total 300 Balance 1630 Result Diagrams: 06/01/18 05:00 06/01/18 05:00 <Zaki Garcia - Last Filed: 06/04/18 11:58> Phys Exam - Physical Examination Constitutional: NAD HEENT: moist MMs Respiratory: no wheezing Cardiovascular: RRR Gastrointestinal: soft, no distention Musculoskeletal: pulses present Neurological: non-focal Deviation from normal: resting comfortably in bed Skin: cap refill <2 seconds <Cintia Jackson - Last Filed: 06/03/18 07:36> Dx/Plan (1) Encephalitis due to human herpes simplex virus (HSV) Code(s): B00.4 - HERPESVIRAL ENCEPHALITIS Status: Suspected (2) Acute respiratory failure with hypoxia Code(s): J96.01 - ACUTE RESPIRATORY FAILURE WITH HYPOXIA Status: Resolved (3) Hyponatremia Code(s): E87.1 - HYPO-OSMOLALITY AND HYPONATREMIA Status: Acute (4) CAD (coronary artery disease) Code(s): I25.10 - ATHSCL HEART DISEASE OF [place] CORONARY ARTERY W/O ANG PCTRS Status: Chronic Qualifiers: Coronary Disease-Associated Artery/Lesion type: [place] artery Associated angina: without angina (5) COPD (chronic obstructive pulmonary disease) Status: Chronic Qualifiers: COPD type: COPD with acute exacerbation Qualified Code(s): J44.1 - Chronic obstructive pulmonary disease with (acute) exacerbation (6) GERD (gastroesophageal reflux disease) Code(s): K21.9 - GASTRO-ESOPHAGEAL REFLUX DISEASE WITHOUT ESOPHAGITIS Status: Chronic (7) Hypothyroid Code(s): E03.9 - HYPOTHYROIDISM, UNSPECIFIED Status: Chronic (8) Normocytic anemia Code(s): D64.9 - ANEMIA, UNSPECIFIED Status: Chronic (9) Prostate cancer Code(s): C61 - MALIGNANT NEOPLASM OF PROSTATE Status: Chronic (10) CKD (chronic kidney disease) stage 3, GFR 30-59 ml/min Status: Chronic (11) Hx of kidney transplant Status: Chronic (12) Hyperlipidemia Code(s): E78.5 - HYPERLIPIDEMIA, UNSPECIFIED Status: Chronic (13) IDDM (insulin dependent diabetes mellitus) Code(s): E11.9 - TYPE 2 DIABETES MELLITUS WITHOUT COMPLICATIONS; 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 Status: Chronic (14) Morbid obesity with BMI of 40.0-44.9, adult Code(s): E66.01 - MORBID (SEVERE) OBESITY DUE TO EXCESS CALORIES; Z68.41 - BODY MASS INDEX (BMI) 40.0-44.9, ADULT Status: Chronic (15) JUDI on CPAP Code(s): G47.33 - OBSTRUCTIVE SLEEP APNEA (ADULT) (PEDIATRIC) Status: Chronic (16) Tachycardia Code(s): R00.0 - TACHYCARDIA, UNSPECIFIED Status: Acute (17) Seizures Code(s): R56.9 - UNSPECIFIED CONVULSIONS Status: Acute (18) Adrenal insufficiency Code(s): E27.40 - UNSPECIFIED ADRENOCORTICAL INSUFFICIENCY Status: Suspected - Plan Plan: 68 year old male presents with encephalopathy 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 atrial tachycardia, resolved - Continue cardizem and digoxin Acute hypoxic respiratory failure. resolved - Likely 2/2 encephalopathy and JUDI - Continue CPAP as tolerated Adrenal insufficiency - Likely 2/2 to recent severe illness - Continue steroids; will start prednisone 20 mg PO BID x1 wk, prednisone 10 mg PO BID x1 wk, prednisone 5 mg PO BID x1 wk, and then prednisone 5 mg PO daily indefinitely Hypokalemia - Replace electrolytes PRN Hypomagnesemia - Replace electrolytes; on MgO PO BID Hypophosphatemia - Replace electrolytes; On supplementation PO Right wrist pain - XR neg for fracture Acute on Chronic Kidney Disease, s/p kidney transplant - Improved Protein calorie malnutrition - Albumin low - Tolerating PO, but not eating much. Supplement with glucerna Anemia - Likely 2/2 hypoproliferation of BM - Stable Hyponatremia, resolved DM - [place] home medications - Aggressive SS, ACHS accuchecks - BG better controlled, although not ideal - Continue to monitor and adjust insulin as necessary Hx of Prostate cancer w/ mets to spine - Continue home medications - Diffuse mets based on bone scan - Patient was supposed to undergo chemotherapy last week. Since his hospitalization that was put on hold. Discussed case with heme/onc. They do not think patient is a good candidate for chemo currently and recommend against port placement at this time. Discussed with patient's in detail. HLD - continue home medications Hx of Gout - continue home medications JUDI on CPAP - aware. Constipation - Continue bowel regimen DISPO: Stable. CODE: FULL VTE: heparin Dispo: Stable. [facility] has agreed to accept patient. Awaiting insurance approval. Hopeful that patient will be d/c'd to SNF facility in next 24 hours. <Cintia Jackson - Last Filed: 06/03/18 07:36> (1) CAD (coronary artery disease) Code(s): I25.10 - ATHSCL HEART DISEASE OF [place] CORONARY ARTERY W/O ANG PCTRS Status: Chronic Qualifiers: Coronary Disease-Associated Artery/Lesion type: [place] artery Associated angina: without angina (2) Prostate cancer Code(s): C61 - MALIGNANT NEOPLASM OF PROSTATE Status: Chronic (3) SIRS (systemic inflammatory response syndrome) Code(s): R65.10 - SIRS OF NON-INFECTIOUS ORIGIN W/O ACUTE ORGAN DYSFUNCTION Status: Resolved (4) Hx of kidney transplant Status: Chronic (5) Morbid obesity with BMI of 40.0-44.9, adult Code(s): E66.01 - MORBID (SEVERE) OBESITY DUE TO EXCESS CALORIES; Z68.41 - BODY MASS INDEX (BMI) 40.0-44.9, ADULT Status: Chronic (6) Normocytic anemia Code(s): D64.9 - ANEMIA, UNSPECIFIED Status: Chronic (7) Hyperlipidemia Code(s): E78.5 - HYPERLIPIDEMIA, UNSPECIFIED Status: Chronic (8) JUDI on CPAP Code(s): G47.33 - OBSTRUCTIVE SLEEP APNEA (ADULT) (PEDIATRIC) Status: Chronic (9) Hyponatremia Code(s): E87.1 - HYPO-OSMOLALITY AND HYPONATREMIA Status: Acute <Zaki Garcia - Last Filed: 06/04/18 11:58> Attending Addendum - Attending Addendum Date/Time: 06/04/18 1157 I personally evaluated the patient and discussed the management with Dr. Jackson. I agree with the History, Examination, Assessment and Plan documented above with any addition or exceptions noted below. <Zaki Garcia - Last Filed: 06/04/18 11:58>
[2018-06-03] MEDS: Bumetanide 1 MG TAB PO SCH (08:59)
[2018-06-03] MEDS: Allopurinol 300 MG TAB PO SCH (09:00)
[2018-06-03] MEDS: Insulin Glargine 80 UNITS in Pre-Filled Syringe 1 EACH SC SCH (09:01)
[2018-06-03] MEDS: Montelukast Sodium 10 mg Tablet PO SCH (09:01)
[2018-06-03] MEDS: Mycophenolate 250 MG CAP PO SCH (09:02)
[2018-06-03] MEDS: Polyethylene Glycol 3350 17 GM Packet PO SCH (09:03)
[2018-06-03] MEDS: Aspirin 325 mg Enteric Coated Tablet PO SCH (09:04)
[2018-06-03] MEDS: Calcium Carbonate 500 MG ChewTAB PO SCH (09:04)
[2018-06-03] MEDS: Magnesium Oxide 400 MG TAB PO SCH (09:04)
[2018-06-03] MEDS: Docusate 100 MG CAP PO SCH (09:04)
[2018-06-03] MEDS: Amlodipine 5 MG TAB PO SCH (09:05)
[2018-06-03] MEDS: Loratadine 10 MG TAB PO SCH (09:08)
[2018-06-03] MEDS: Digoxin 0.125 MG TAB PO SCH (09:08)
[2018-06-03] MEDS: predniSONE 20 MG TAB PO SCH (09:08)
[2018-06-03] MEDS: Calcitriol 0.25 MCG CAP PO SCH (09:08)
[2018-06-03] MEDS: Atorvastatin Calcium 10 MG TAB PO SCH (09:08)
[2018-06-03] MEDS: Heparin 5,000 UNITS/ML VIAL SC SCH ×2 (09:10→14:28)
[2018-06-03] MEDS: Tacrolimus 0.5 MG CAP PO SCH (09:13)
[2018-06-03 11:52] VITALS: BP 138/70; TEMP 97.9
--- NOTE | 2018-06-04 13:30 | DIS ---
DATE OF ADMISSION: 05/17/2018 DATE OF DISCHARGE: 06/03/2018 ADMITTING ATTENDING PHYSICIAN: Zaki Garcia MD DISCHARGE ATTENDING PHYSICIAN: Zaki Garcia Md RESIDENT PHYSICIAN: Cintia Jackson DO PROCEDURES PERFORMED: 1. Initial chest x-ray: Findings indicative of fluid overload related to congestive heart failure. 2. Brain CT showed no evidence of intracranial process. 3. Forearm x-ray, right: Intact distal forearm. 4. Right hand x-ray shows no evidence of fracture. 5. Right wrist x-ray shows no evidence of fracture. 6. EKG showed sinus tachycardia with T-wave abnormalities in the lateral leads. 7. Chest/thorax CTA showed no evidence for pulmonary embolism. There is extensive coronary arterial calcification. There is extensive abnormal sclerosis to the osseous structures with scattered areas of lytic changes that is suspicious for osseous metastatic disease. 8. Followup chest x-ray showed vascular catheter in place after central line placement. 9. 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 No major interval changes since 04/23/2005. 10. Carotid Doppler showed markedly limited exam due to the patient's tolerance and positioning issues. 11. Cervical spine MRI showed diffuse low T1 marrow signal, which is nonspecific. In light of the patient's history of metastatic prostate cancer, whole body bone scan may prove useful for more sensitive evaluation. The exam was limited by the patient's motion. No definite intrinsic cord signal abnormality or intramedullary enhancement. There is multilevel cervical spine degenerative change. 12. EKG on 05/18 showed sinus tachycardia with short VA. There was some ST- elevation suggestive of inferior acute infarct. 13. Abdomen ultrasound showed postop cholecystectomy changes, neither right or left kidneys were definitely visualized. There was right-sided renal transplant that was not obstructive. 14. Abdominal x-ray showed non-obstructive bowel gas pattern. 15. Followup chest x-ray showed cardiomegaly with no acute findings. Echocardiogram showed ejection fraction visually estimated at 60% to 65% with grade 1/3 diastolic dysfunction. There is normal right ventricular size and function. Left atrium was normal in size. Normal right atrium in size. Trace mitral regurgitation present. Individual aortic valve leak was not clearly visualized. Mild tricuspid regurgitation. 16. Bone scan showed widespread osseous metastatic disease, which seems stable since 12/01/2017. 17. Lumbar puncture fluoroscopy initially considered L2-L3 with 22-gauge 5-inch needle. This was unsuccessful, thus a puncture was performed at L1-L2 with 20- gauze 6-inch needle. Only bloody fluid was obtained, which clotted, it was not useful for analysis. 18. Abdominal x-ray followup after NG tube placement showed tube in good position. 19. EEG showed diffusely slow background with an epileptiform activity in both temporal areas, somewhat prominent in the right temporal area. 20. EEG was consistent with an encephalopathy and seizure disorder. 21. Lumbar spine CT-guided lumbar puncture shows successful CT-guided lumbar puncture with removal of 2 mL of slightly tinged turbid and thickened CSF fluid at the level of L3-L3. 22. Abdominal x-ray showed normal valve gas pattern with postsurgical changes in pelvis and lower abdomen. CONSULTS: 1. Cardiology, Dr. Vasyl Contreras. 2. Infectious Disease, Dr. Angel Gerard. 3. Neurology, Dr. Florecita Herbert. 4. Pulmonology, Dr. José Antonio Govea. 5. PT. 6. OT. 7. Palliative Care. 8. Relay Checker. 9. Rehab. 10. Spiritual Care. 11. Speech Therapy. 12. Stroke Team. 13. Case Management. PRIMARY DIAGNOSES: 1. 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 2. 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 3. Tachycardia suspicious for atrial flutter versus atrial tachycardia, resolved. 4. Acute hypoxic respiratory failure, resolved. 5. Adrenal insufficiency. 6. Hypokalemia. 7. Hypomagnesemia. 8. Hypophosphatemia. 9. Status post fall at home. 10. Right wrist pain. 11. [id number] kidney disease, status post kidney transplant. 12. Protein-calorie malnutrition. 13. Normocytic anemia, secondary to hypoproliferation of bone marrow. 14. Hyponatremia, resolved. 15. Diabetes mellitus type 2. 16. 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 17. Hyperlipidemia. 18. History of gout. 19. Obstructive sleep apnea, on CPAP. 20. Constipation. DISCHARGE MEDICATIONS: 1. Zytiga 250 mg tablet. The patient is to take 1000 mg p.o. daily. 2. Allopurinol 100 mg tablet. The patient is to take 3 tablets p.o. daily. 3. Amitriptyline 10 mg tablet. The patient is to take 20 mg p.o. nightly. 4. Amlodipine 2.5 mg p.o. daily. 5. Aspirin 325 mg p.o. daily. 6. Atorvastatin 10 mg p.o. daily. 7. Bumex 0.5 mg tablet. The patient is to take one tablet p.o. daily. 8. Calcitriol 0.25 mcg p.o. daily. 9. Zyrtec 10 mg p.o. daily. 10. Colchicine 0.6 mg p.o. b.i.d. p.r.n. 11. Docusate 100 mg p.o. b.i.d. 12. Omeprazole 40 mg p.o. q.p.m. 13. Gabapentin 300 mg q.a.m. 14. Gabapentin 900 mg q.p.m. 15. Hydrocodone 10/325 one tablet p.o. q.6 hours p.r.n. 16. Metoprolol 100 mg p.o. b.i.d. 17. Montelukast sodium 10 mg p.o. q.a.m. 18. Mycophenolate 500 mg p.o. b.i.d. 19. Ondansetron 8 mg p.o. q.8 hours p.r.n. 20. MiraLax 17 g p.o. daily. 21. Tacrolimus 1 mg p.o. b.i.d. 22. Tramadol 50 mg p.o. q.8 hours. 23. Acetaminophen 650 mg p.o. q.4 hours. 24. Calcium carbonate 1000 mg p.o. b.i.d. 25. Digoxin 0.125 mg p.o. daily. 26. Diltiazem 240 mg p.o. daily. 27. Insulin glargine 80 units subcu q.a.m. 28. Magnesium oxide 400 mg p.o. b.i.d. 29. Phenytoin 150 mg p.o. t.i.d. 30. Phosphorus/electrolyte supplement 1 packet p.o. q.a.m. 31. Prednisone to be on a schedule for 20 mg b.i.d. for an additional 1.5 days with in date of 06/04, then 10 mg b.i.d. x7 days, then 5 mg b.i.d. x7 days, and then 5 mg q.a.m. thereafter. HISTORY OF PRESENT ILLNESS/HOSPITAL COURSE: This is a sukhwinder 68-year-old -[place] gentleman, who presented with altered mental status, brought in by his . Past medical history is significant for metastatic prostate cancer to the spine. On initial presentation, the patient was unable to provide much of his history and the patient's history was obtained mostly from the , who is present in the room with the patient. Of note, the patient was not fully cooperative. The reported that the patient had normal mentation at approximately 5 on the morning of arrival, but by 10 had became confused and lethargic. He became more confused and lethargic throughout the day, which is why she decided to call EMS. The patient was supposed to see Dr. Christina in clinic on the day of arrival, but due to his altered mentation they asked to forego the appointment. His also reported that the patient fell 3 to 4 days prior and have been complaining of right wrist pain. Per the , the patient has not had any fever, chills, nausea, vomiting, diarrhea, shortness of breath, chest pain, abdominal pain. Of note, the patient was here 2 weeks prior for a similar story and fever of unknown origin. Dr. Willson was consulted at that time and stated that the fever could be due to the patient's metastatic disease. The patient was treated with antibiotics and improved. He was discharged home in stable condition at that time. No source of infection was determined despite a thorough workup. The patient was given 1 L of normal saline in the ED as well as 500 mL IV of Lactated Ringer's, 2 g of Rocephin, 1900 mg of Vancomycin, 1000 mg IV tylenol, and cefepime 2g. The patient was initially admitted for observation to the Stroke Unit as there was concern for a stroke on initial presentation. The patient had a brain CT, which was normal. He also had brain MRI, which did not show any acute infarction. There were some chronic changes with lacunar infarcts that did not explain his current mental status. Carotid Dopplers were not very helpful because the patient was unable to turn his neck to have this procedure performed properly. Thus, a cervical spine MRI was performed, which did not show any cervical stenosis, but it showed some areas where the cervical spine was affected from the metastatic prostate cancer. Based on these studies, stroke was ruled out as the cause of the patient's metabolic encephalopathy. Other workup included CBC, which showed white count initially of 8.9, hemoglobin 10, hematocrit 31.5, and platelet count of 230. Blood gas initially showed a pH of 7.43, pCO2 of 31.7, and PO2 of 43.8 and base excess of -2.3. CMP initially on presentation, showed sodium 131, potassium 4.9, chloride 103, bicarbonate of 20, BUN of 31, creatinine of 1.87, and glucose of 202. Calcium 8.6. T-bilirubin of 0.9. AST 15, ALT less than 7, and alkaline phosphatase 214. Ammonia of 18. Creatine kinase of 72 and CK-MB of 0.2. Troponin less than 0.010. BNP of 52.8. Total protein 6.1, albumin 3.1. TSH of 1.2. Procalcitonin 0.58. Of note, there was some mild hyponatremia, which seemed stable from prior hospitalizations. The patient was also noted to have an acute kidney injury on top of presumed chronic kidney disease secondary to renal transplant, for which the patient is currently on immunosuppressive agent. With an indeterminate procalcitonin 0.58 and the fact that the patient's mental status was not otherwise explained by other findings, it was determined a lumbar puncture would be helpful for further evaluation. This was discussed at length with the patient, who at that time of discussion, was alert, oriented, and capable of making his own decisions. It was also discussed with the , who was present at the patient's bedside. This was already done in the emergency department by the admitting team and the patient and the patient's at that time had refused lumbar puncture. Thus, it was decided to go ahead and start antibiotics for treatment of presumed infection. The patient was given vancomycin and Rocephin down in the emergency department. As stated previously, he was transferred to the Stroke Unit, where initially he was doing okay, but did have a decline the following day in his mental status. The day after admission, the patient was noted to be tachycardic in the 140s to 150s. Initially, it appeared to be sinus tachycardia; however, EKG was performed and could not rule out atrial flutter versus atrial tachycardia. Due to the sudden nature of this tachycardia and the fact that it was unexplained, troponins were drawn, which were normal and an EKG was performed, which did show ST-elevation concerning for an acute NV, an echocardiogram was also performed and echocardiogram showed normal left ventricular function with grade 1/3 diastolic dysfunction. Cardiology was consulted due to the abnormal EKG and new onset of the patient's symptoms. Cardiology recommended starting a Cardizem drip which the patient was on for several days. The patient was eventually transitioned to p.o. digoxin and p.o. Cardizem for treatment of his tachycardia. A cardiac catheterization was not performed as the patient was not a good candidate for the procedure and Cardiology did not want to undergo cardiac cath given the patient's mental state as well as his iodine allergy. Of note, the patient was treated with heparin during the course of his hospital stay. For DVT prophylaxis, he was on heparin therapeutic for a short period of time, when there was concern for the acute myocardial infarction. The patient's mental status did not improve despite the antibiotic, the negative workup. Since his oxygen was noted to be low on ABG despite having a normal pH, the patient was started on supplemental oxygen, until repeat ABGs showed adequate oxygenation. The patient was transferred to [facility] after lengthy discussion with the patient's family and consulting physicians as the patient was difficult to manage on the floor due to his mentation, the degree of care that he was requiring. Dr. Gerard was eventually consulted for recommendations regarding the patient's underlying etiology. I will note that I did give report of that patient complaining of difficulty swallowing and at one point when I looked in his mouth although I cannot see the back of the throat as he was unable to open the mouth, and I did see some lesion from the tongue, which were concerning for viral etiology. Thus, orders were placed to have levels of HSV, CMV, and HIV checked. Based on the laboratory findings, it looks the patient likely had CMV in the distant past and for some reason HSV study never got performed despite orders being written. When Dr. Gerard was consulted, he also had concern for HSV. 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 As the patient's mental status was still not improving despite our treatment, Neurology was consulted. Neurology did an EEG, which showed epileptiform activity in the temporal lobe, right greater than left which suggested seizure-like activity and encephalopathy. The temporal lobe findings are suggestive of locations which HSV would likely affect. The patient was continued on the acyclovir and antibiotics. Eventually, antibiotics were discontinued. Blood cultures came back negative and procalcitonin did down trend after up trending initially. The patient was to continue the course of acyclovir for a total of [address] Gerard. Acyclovir was given though left subclavian central line as the patient did not have peripheral access due to difficulty obtaining it. The patient did slowly start to improve after several days of treatment. It was a slow, but progressive improvement over the course of days to weeks. 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 Eventually, the patient's mental status was back to baseline, he was communicating days prior to discharge, however, it was recommended that patient go to a short-term, or senior living facility, or inpatient rehab. As the patient was unable to complete 3 hours of physical therapy per day, the patient's rehab was denied despite performing a doc-to-doc; however , the patient was approved for senior living at [facility], where he was eventually discharged. The patient was noted to have adrenal insufficiency with cortisol level less than 1, so he was given stress dose of steroid. Of note, he is on a very low dose of steroid chronically 5 mg p.o. daily. He did not receive these for a few days because he is not tolerating p.o. eventually, an NG-tube was placed to help the patient with feeds as well as with medication administration. He had that NG-tube in place for several days before removal. The patient was discharged to [facility] on a course of steroid. That medication regimen has been listed in the discharge medication above. Additionally, Dr. Willson was consulted, vicki consulted. He states that the patient has been done with radiation for the past several weeks. He is to undergo chemotherapy sometime soon. Dr. Coon was called. She states that the patient was supposed to have gotten a port and started chemo although he is very reluctant to do so, but since the patient's current state, she did not think he is a candidate any longer for chemotherapy and stated it would not be worthwhile at this time for a port to be placed during the hospitalization. This was discussed with the family , who understood and agreed that this was the best course of action. He was stable prior to discharge. He was in need of physical therapy and occupational therapy before discharge home. Again, he was discharged to [facility] for senior living. DISPOSITION: Stable. PROGNOSIS: Guarded. DISCHARGE INSTRUCTIONS: 1. Location: [facility]. 2. Activity as tolerated. 3. Diet, diabetic diet, heart healthy diet. 4. Followup: The patient will be followed at [facility]. He will follow with his primary care physician Dr. Bean after discharge to senior living. Job ID: [id number] [facility]
== END 2018-06-03 15:30 | DRG 97 ==
LOC: ERS 15:55 → ERHOLD 19:30 → 2SE 05-18 02:17 → IMCU/EMU 05-20 15:41 → 2SE 05-25 23:37
PROVIDERS: ADMIT Emergency Medicine; ATTEND Emergency Medicine
PROC: 009U3ZX Drainage of Spinal Canal, Percutaneous Approach, Diagnostic (ICD-10-PCS; principal; 2018-05-20)
DX: B00.4 Herpesviral encephalitis (principal); G93.41 Metabolic encephalopathy; J96.01 Acute respiratory failure with hypoxia; R65.10 Systemic inflammatory response syndrome (SIRS) of non-infectious origin without acute organ dysfunction; E87.1 Hypo-osmolality and hyponatremia; N17.9 Acute kidney failure, unspecified; I47.1 Supraventricular tachycardia; J44.1 Chronic obstructive pulmonary disease with (acute) exacerbation; C79.51 Secondary malignant neoplasm of bone; Z94.0 Kidney transplant status; E27.40 Unspecified adrenocortical insufficiency; E46 Unspecified protein-calorie malnutrition; C61 Malignant neoplasm of prostate; N18.3 Chronic kidney disease, stage 3 (moderate); E11.22 Type 2 diabetes mellitus with diabetic chronic kidney disease; I25.10 Atherosclerotic heart disease of native coronary artery without angina pectoris; E66.01 Morbid (severe) obesity due to excess calories; Z68.38 Body mass index [BMI] 38.0-38.9, adult; K21.9 Gastro-esophageal reflux disease without esophagitis; G47.33 Obstructive sleep apnea (adult) (pediatric); E78.5 Hyperlipidemia, unspecified; Z91.040 Latex allergy status; Z88.0 Allergy status to penicillin; Z88.6 Allergy status to analgesic agent; Z91.013 Allergy to seafood; Z91.041 Radiographic dye allergy status; Z88.8 Allergy status to other drugs, medicaments and biological substances; Z79.899 Other long term (current) drug therapy; Z79.82 Long term (current) use of aspirin; Z79.52 Long term (current) use of systemic steroids; Z79.891 Long term (current) use of opiate analgesic; Z79.4 Long term (current) use of insulin; M10.9 Gout, unspecified; D64.9 Anemia, unspecified; Z92.3 Personal history of irradiation; R50.9 Fever, unspecified; E87.6 Hypokalemia; E83.42 Hypomagnesemia; E83.39 Other disorders of phosphorus metabolism; R56.9 Unspecified convulsions; K59.00 Constipation, unspecified; E03.9 Hypothyroidism, unspecified; M25.531 Pain in right wrist
CPT/HCPCS: 36415; 36416; 36556; 62270; 70450; 70551; 71045; 71275; 72131; 72156; 74018; 76700; 77002; 78306; 80048; 80053; 80061; 80162; 80185; 80197; 80202; 81003; 82140; 82533; 82550; 82553; 82607; 82728; 82747; 82805; 83540; 83550; 83605; 83690; 83735; 83880; 84100; 84134; 84145; 84443; 84484; 85025; 85046; 85060; 85379; 85610; 85652; 85730; 86644; 86645; 86694; 86695; 86696; 86780; 86788; 86789; 86850; 86900; 86901; 87040; 87070; 87086; 87205; 87385; 87389; 87497; 87529; 87633; 87899; 89051; 93005; 93010; 93306; 93880; 94760; 95816; 95819; 96360; 96361; 96365; 96366; 96367; 96375; A4216; A9503; G8978-GP-CL; G8978-GP-CN; G8979-GP-CK; G8979-GP-CL; G8981-GP-CN; G8982-GP-CK; G8987-GO-CL; G8987-GO-CM; G8987-GO-CN; G8988-GO-CK; G8988-GO-CL; G8988-GO-CN; G8989-GO-CN; G8996-GN-CI; G8996-GN-CK; G8996-GN-CM; G8997-GN-CH; G8997-GN-CI; G8997-GN-CK; J0131; J0133; J0692; J0696; J1160; J1644; J2405; J2920; J2930; J2997; J3010; J3370; J3475; J3480; J7050; J7070; J7506; J7507; J7517; Q0162; Q2009

== ENCOUNTER 2018-06-23 13:32 | Inpatient (IN) | payer MEDICARE ==
--- NOTE | 2018-06-23 14:47 | RAD ---
PORTABLE AP CHEST: Date: 06/23/18 HISTORY: Altered mental status. COMPARISON: 05/19/18. FINDINGS: The left subclavian central venous catheter has been removed. There has been improved aeration at eac h lung base compared to the prior study. Cardiac silhouette is magnified by projection. Pulmonary vas culature is within normal limits. The lungs do appear clear. Degenerative changes are present in the spine. IMPRESSION: No acute cardiopulmonary process. POS: [facility]
[2018-06-23 14:53] LABS: Bilirubin Negative (Negative); Blood, Urine Moderate (Negative); Clarity TURBID (Clear); Glucose, Urine (Dipstick) Negative (Negative); Leukocyte Large (Negative); Nitrite Negative (Negative); Protein, Urine (Dipstick) 30 mg/dL (Neg-Trace); Specific Gravity, Urine 1.019 (1.002-1.036); Urobilinogen 0.2 mg/dL (0.2-1.0); pH, Urine 5.5 (5.0-9.0)
[2018-06-23 14:55] LABS: Bacteria/HPF 4+ HPF (None Seen); Squamous Epithelial 0-3 HPF (0-3)
[2018-06-23 14:55] LABS: Hemoglobin 10.2 g/dL (14.0-18.0); Mean Corpuscular HGB CONC 31.1 g/dL (32.0-36.0); Mean Corpuscular Hemoglobin 30.9 pg (27.0-31.0); Mean Corpuscular Volume 99.4 fL (78.0-98.0); Mean Platelet Volume 6.2 fL (7.4-10.4); Platelet Count 432 thou/uL (130-400); RBC Distribution Width 21.4 % (11.5-14.5)
[2018-06-23 15:01] LABS: Pathc Cast-AUWi Flag 3.19 (0-2.49)
[2018-06-23 15:02] LABS: Acetaminophen Less than 6.0 mcg/mL (10.0-30.0); Alcohol Less than 10 mg/dL (Less than 10); Salicylate Less than 8.0 mg/dL (15.0-30.0)
[2018-06-23 15:03] LABS: ALT (SGPT) 20 U/L (8-55); AST (SGOT) 25 U/L (5-34); Albumin 3.5 g/dL (3.4-4.8); Alkaline Phosphatase 237 U/L (40-150); Anion Gap 19 mmol/L (10-20); BUN (Urea Nitrogen) 38 mg/dL (8.4-25.7); Bilirubin, Total 0.3 mg/dL (0.2-1.2); CK (CPK) 16 U/L (30-200); Calc. Creatinine Clearance 0 mL/min (70-130); Calcium 9.2 mg/dL (7.8-10.44); Carbon Dioxide 21 mmol/L (23-31); Chloride 96 mmol/L (98-107); Estimated GFR-MDRD 70; Globulin 3.2 g/dL (2.4-3.5); Glucose 194 mg/dL (80-115); Potassium 5.9 mmol/L (3.5-5.1); Protein, Total 6.7 g/dL (5.8-8.1); Sodium 130 mmol/L (136-145)
[2018-06-23 15:05] LABS: Amphetamine Not Detected (NotDetected); Barbiturates Screen Detected (NotDetected); Benzodiazepine Screen Not Detected (NotDetected); Cocaine Metabolite Screen Not Detected (NotDetected); Medtox Control Line Valid? VALID (VALID); Medtox Reader # READER 4; Methadone Not Detected (NotDetected); Methamphetamine Not Detected (NotDetected); Opiate Screen Not Detected (NotDetected); Oxycodone Screen Not Detected (NotDetected); Phencyclidine (PCP) Not Detected (NotDetected); THC/Cannabinoid Screen Not Detected (NotDetected); Tricyclic Screen Detected (NotDetected)
[2018-06-23 15:10] LABS: Anisocytosis MODERATE=16-30 cells (100X) (0-5/hpf); Band 10 % (5-11); Eosinophils 1 % (0-10); Hypochromia SLIGHT = 6-15 cells (100X) (0-5/hpf); Lymphocytes 30 % (21-51); MDiff Complete? YES; Metamyelocyte 1 % (0-0); Monocytes 8 % (0-10); Neutrophil 50 % (42-75); Ovalocytes SLIGHT = 2-5 cells (100X) (0-1/hpf); Platelet Morphology Comment Appears Increased; Poikilocytosis SLIGHT = 6-15 cells (100X) (0-5/hpf); Polychromasia SLIGHT = 2-3 cells (100X) (0-2/hpf); Schistocytes SLIGHT = 2-5 cells (100X) (0-1/hpf); Target Cells SLIGHT = 2-5 cells (100X) (0-1/hpf); Tear Drops SLIGHT = 2-5 cells (100X) (0-1/hpf)
[2018-06-23 15:12] LABS: Hyaline Casts/LPF 0-3 HYALINE CAST LPF (0-3 Hyaline); Other Casts/LPF None Seen LPF (0-3 Hyaline)
[2018-06-23 15:33] LABS: INR-International Normal Ratio 1.1; PTT 23.9 SEC (22.9-36.1); Prothrombin Time 13.8 SEC (12.0-14.7)
[2018-06-23] MEDS ORDERED: cefTRIAXone\\ROCEPHIN 2 GM VIAL ONE (15:37)
--- NOTE | 2018-06-23 15:44 | PDOC.FPRHP ---
- History of Present Illness Chief Complaint: less alert, not working with PT as well, weak, garbled speech History of Present Illness: Osbaldo Joseph is a 68 year old M with a PMH of CAD, COPD, GERD, JUDI, HLD, s/p right kidney transplant on immunosuppressants, hx of prostate cancer who was sent over from [facility] for altered mental status and speech changes x2 days. These symptoms have been progressive over the last 2-3 days. states that he has not been drinking or eating as much. In addition reports physical weakness as he has not been as engaged in his rehab sessions seeming less alert. 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 He completed his two week course of acyclovir. states that he has had some diarrhea and n/v over the last couple days. Denies any fever, pain, chest pain, dyspnea. ED Course: Given 1 L NS and 2g ceftriaxone - Allergies/Adverse Reactions Allergies Allergy/AdvReac Type Severity Reaction Status Date / Time Latex, Natural Rubber Allergy Verified 04/25/18 15:08 morphine Allergy Verified 10/14/16 18:51 NSAIDS (Non-Steroidal Allergy Verified 04/25/18 15:08 Anti-Inflamma Penicillins Allergy Severe Verified 10/14/16 18:51 Hives povidone-iodine Allergy Rash Verified 10/14/16 18:51 [From Betadine] shellfish derived Allergy Verified 05/18/18 04:53 Tetracyclines Allergy Verified 10/14/16 18:51 lisinopril AdvReac Mild COUGHING Verified 10/14/16 18:51 - Home Medications Medication Instructions Recorded Confirmed Type Amitriptyline HCl [Elavil] 20 mg PO HS 02/18/15 06/23/18 History Aspirin [Aspirin EC] 325 mg PO DAILY 02/18/15 06/23/18 History Atorvastatin Calcium [Lipitor] 10 mg PO DAILY 02/18/15 06/23/18 History Calcitriol 0.25 mcg PO DAILY 02/18/15 06/23/18 History Cetirizine HCl [Zyrtec] 10 mg PO DAILY 02/18/15 06/23/18 History Metoprolol Succinate [Toprol XL] 1 tab PO BID 02/18/15 06/23/18 History Mycophenolate Mofetil 500 mg PO BID 02/18/15 06/23/18 History Tacrolimus 1 mg PO BID 02/18/15 06/23/18 History amLODIPine Besylate [Norvasc] 2.5 mg PO DAILY 02/18/15 06/23/18 History Allopurinol 3 tab PO DAILY 05/09/15 06/23/18 History Bumetanide [Bumex] 1 tab PO DAILY 10/14/16 06/23/18 History Gabapentin 0.5 tab PO QAM 10/14/16 06/23/18 History Montelukast Sodium [Singulair] 10 mg PO QAM 10/14/16 06/23/18 History Abiraterone Acetate [Zytiga] 1,000 mg PO DAILY 04/25/18 06/23/18 History Colchicine [Colcrys] 0.6 mg PO BID 04/25/18 06/23/18 History Docusate [Colace] 100 mg PO BID 04/25/18 06/23/18 History Gabapentin 900 mg PO QPM 04/25/18 06/23/18 History HYDROcodone/Acetaminophen [Ramona 1 each PO Q6H PRN 04/25/18 06/23/18 History 10-325 Tablet] traMADol HCl [Tramadol HCl] 50 mg PO Q8H PRN 04/25/18 06/23/18 History Ondansetron HCl [Zofran] 8 mg PO Q8H PRN 05/18/18 06/23/18 History Polyethylene Glycol 3350 [Miralax] 17 gm PO DAILY PRN 05/18/18 06/23/18 History Acetaminophen [Tylenol Regular 650 mg PO Q4H PRN tab 06/03/18 06/23/18 Rx Strength] Calcium Carbonate [Tums] 1,000 mg PO BID tab 06/03/18 06/23/18 Rx Digoxin [Lanoxin] 0.125 mg PO DAILY tab 06/03/18 06/23/18 Rx Diltiazem HCl [Cardizem CD] 240 mg PO DAILY cap 06/03/18 06/23/18 Rx Magnesium Oxide 400 mg PO BID tab 06/03/18 06/23/18 Rx Phenytoin [Dilantin Suspension] 150 mg PO TID udcup 06/03/18 06/23/18 Rx Phosphorus/Electrolyte Suppl 1 pkt PO QAM pack 06/03/18 06/23/18 Rx [Phos-NaK] predniSONE 5 mg PO QAM-WM #30 tab 06/03/18 06/23/18 Rx Insulin Glargine [Lantus Vial] 45 units SC BID 06/23/18 06/23/18 History Insulin Lispro [Humalog Kwikpen] 100 unit SQ DAILY-AC PRN 06/23/18 06/23/18 History Loperamide HCl [Imodium A-D] 2 mg PO Q4HR PRN 06/23/18 06/23/18 History Pantoprazole Sodium [Protonix] 20 mg PO DAILY 06/23/18 06/23/18 History traZODone HCl [Trazodone HCl] 100 mg PO QPM 06/23/18 06/23/18 History - History PMHx: DM2, Adrenal Insufficiency, CKD s/p kidney transplant on immunosuppressants, HLD, COPD, JUDI, HTN, GERD, Gout PSHx: Kidney Transplant, Hernia repair X3, Cholecystectomy FHx: AR in mother, DM2 Social: Denies drug, alcohol, tobacco use - Review of Systems General: reports: weight/appetite/sleep changes (decreased appetite). denies: fever/chills Eyes: reports: vision changes (transient double vision a couple days ago that resolved on its own) ENT: denies: nasal congestion, rhinorrhea Respiratory: denies: cough, congestion, shortness of breath Cardiovascular: denies: chest pain, palpitation Gastrointestinal: reports: nausea, vomiting, diarrhea Skin: denies: rashes, lesions Musculoskeletal: denies: pain, tenderness, stiffness Neurological: reports: weakness. denies: syncope, seizure Psychological: reports: depression - Vital signs BP: 142/76 HR: 79 RR: 16 Tmax: 97.6 Pox: 99% on RA Wt: 106 kg - Physical Exam Constitutional: NAD, other (awake, fluctuating consciousness) -Constitutional: A&O X2 HEENT: normocephalic and atraumatic, PERRLA, EOMI, conjunctiva clear Neck: FROM Chest: no-tender to palpation, no lesions Heart: RRR, normal S1/S2 Lungs: CTAB, no respiratory distress Abdomen: soft, non-tender, bowel sounds present Musculoskeletal: normal structure, normal tone, ROM grossly normal Neurological: no focal deficit, CN II-XII intact Skin: no rash/lesions -Skin: dec skin turgor Heme/Lymphatic: no unusual bruising or bleeding, no purpura Psychiatric: other (unable to assess due to incomprehensible speech) FMR H&P: Results - Labs Result Diagrams: 06/24/18 05:44 06/24/18 05:44 Lab results: WBC 7.0 thou/uL (4.8-10.8) 06/23/18 14:04 Hgb 10.2 g/dL (14.0-18.0) L 06/23/18 14:04 Hct 32.8 % (42.0-52.0) L 06/23/18 14:04 MCV 99.4 fL (78.0-98.0) H 06/23/18 14:04 Plt Count 432 thou/uL (130-400) H 06/23/18 14:04 Band Neuts % (Manual) 10 % (5-11) 06/23/18 14:04 Sodium 130 mmol/L (136-145) L 06/23/18 14:04 Potassium 5.9 mmol/L (3.5-5.1) H 06/23/18 14:04 Chloride 96 mmol/L (98-107) L 06/23/18 14:04 Carbon Dioxide 21 mmol/L (23-31) L 06/23/18 14:04 BUN 38 mg/dL (8.4-25.7) H 06/23/18 14:04 Creatinine 1.24 mg/dL (0.7-1.3) 06/23/18 14:04 Glucose 194 mg/dL (80-115) H 06/23/18 14:04 Lactic Acid 2.9 mmol/L (0.5-2.2) H 06/23/18 14:04 Calcium 9.2 mg/dL (7.8-10.44) 06/23/18 14:04 Total Bilirubin 0.3 mg/dL (0.2-1.2) 06/23/18 14:04 AST 25 U/L (5-34) 06/23/18 14:04 ALT 20 U/L (8-55) 06/23/18 14:04 Alkaline Phosphatase 237 U/L (40-150) H 06/23/18 14:04 Ammonia 27 umol/L (18-72) 06/23/18 14:04 Creatine Kinase 16 U/L (30-200) L 06/23/18 14:04 Serum Total Protein 6.7 g/dL (5.8-8.1) 06/23/18 14:04 Albumin 3.5 g/dL (3.4-4.8) 06/23/18 14:04 Urine Ketones Negative mg/dL (Negative) 06/23/18 13:45 Urine Blood Moderate (Negative) H 06/23/18 13:45 Urine Nitrite Negative (Negative) 06/23/18 13:45 Ur Leukocyte Esterase Large (Negative) H 06/23/18 13:45 Urine RBC 7-10 HPF (0-3) H 06/23/18 13:45 Urine WBC Greater Than 50-TNTC HPF (0-3) H 06/23/18 13:45 Ur Squamous Epith Cells 0-3 HPF (0-3) 06/23/18 13:45 Urine Bacteria 4+ HPF (None Seen) H 06/23/18 13:45 - Radiology Interpretation CT scan - head Status: report reviewed by me (no acute IC processess) Chest x-ray Status: image reviewed by me (no acute processes), report reviewed by me FMR H&P: A/P - Problem List (1) UTI (urinary tract infection) Current Visit: Yes Status: Acute (2) Acute encephalopathy Current Visit: Yes Status: Acute Code(s): G93.40 - ENCEPHALOPATHY, UNSPECIFIED (3) Hyponatremia Current Visit: No Status: Acute Code(s): E87.1 - HYPO-OSMOLALITY AND HYPONATREMIA (4) Seizures Current Visit: No Status: Acute Code(s): R56.9 - UNSPECIFIED CONVULSIONS (5) Tachycardia Current Visit: No Status: Acute Code(s): R00.0 - TACHYCARDIA, UNSPECIFIED (6) CAD (coronary artery disease) Current Visit: No Status: Chronic Code(s): I25.10 - ATHSCL HEART DISEASE OF [place] CORONARY ARTERY W/O ANG PCTRS Qualifiers: Coronary Disease-Associated Artery/Lesion type: [place] artery Associated angina: without angina (7) CKD (chronic kidney disease) stage 3, GFR 30-59 ml/min Current Visit: No Status: Chronic (8) COPD (chronic obstructive pulmonary disease) Current Visit: No Status: Chronic Qualifiers: COPD type: COPD with acute exacerbation Qualified Code(s): J44.1 - Chronic obstructive pulmonary disease with (acute) exacerbation (9) GERD (gastroesophageal reflux disease) Current Visit: No Status: Chronic Code(s): K21.9 - GASTRO-ESOPHAGEAL REFLUX DISEASE WITHOUT ESOPHAGITIS (10) Hx of kidney transplant Current Visit: No Status: Chronic (11) Hyperlipidemia Current Visit: No Status: Chronic Code(s): E78.5 - HYPERLIPIDEMIA, UNSPECIFIED (12) IDDM (insulin dependent diabetes mellitus) Current Visit: No Status: Chronic Code(s): E11.9 - TYPE 2 DIABETES MELLITUS WITHOUT COMPLICATIONS; Z79.4 - 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 INSULIN (13) Normocytic anemia Current Visit: No Status: Chronic Code(s): D64.9 - ANEMIA, UNSPECIFIED (14) JUDI on CPAP Current Visit: No Status: Chronic Code(s): G47.33 - OBSTRUCTIVE SLEEP APNEA (ADULT) (PEDIATRIC) (15) Prostate cancer Current Visit: No Status: Chronic Code(s): C61 - MALIGNANT NEOPLASM OF PROSTATE (16) Encephalitis due to human herpes simplex virus (HSV) Current Visit: No Status: Suspected Code(s): B00.4 - HERPESVIRAL ENCEPHALITIS - Plan 68 yo M with history of HSV encephalitis, metastatic prostate cancer admitted for acute encephalopathy, UTI. Acute encephalopathy suspected 2/2 UTI -UA: +LE, mod blood, bacteria -s/p Rocephin 2g in ED, 1L NS -Continue rocephin 1g daily -No systemic signs of infection: no WBC, AVSS -Urine & blood cx culture sent -Due to hx of HSV encephalitis, can consider ID consult for continuation of Acyclovir if mental status does not improve with rocephin -Hx of prostate CA with mets, however no new CT changes today -Flu swab due to immunosuppresd state -Bedside swallow test--> can start HH diet after -Admit to tele/inpt Diarrhea -Cdiff Hyperkalemia -5.9, no peaked T waves -Will recheck at 1900 after fluids -After home insulin will likely dec -Monitor in tele -If cardiac change or repeat increased, will give kayex Lactic acidosis -2.9, likely 2/2 to dehydration -reflex to repeat Mild dehydration -due to dec po intake & emesis -zofran PRN -will start on NS mIVF Hyponatremia -mointor with AM BMP Macrocytic anemia -Will check folate & b12 IDDM2 -mild SS -ACHS -restart home meds Physical deconditioning -PT/OT consult -Seen by palliative care last admission -Can consider re-consulting palliative care & possible hospice consult after talking with family 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 Coon -elevated ALP JUDI on CPAP -resume home CPAP HLD -home meds COPD -resume home meds dvt ppx: lovenox gi ppx: home FMR H&P: Upper Level - Pertinent history Osbaldo Joseph is a 68 year old M with a PMH of Metastatic Adenocarcinoma of the Prostate, CKD s/p Kidney Transplant on chronic immunosuppressants, HTN, CAD , JUDI, GERD, HLD who was sent from the [facility] for a 2 day history of generalized weakness and speech changes. These symptoms have been progressive over the last two days. He has not been able to participate as well with physical therapy due to the weakness. present with pt in the ED. He denies fever, chills, chest pain, dyspnea. does state that he has had nausea, vomiting, and diarrhea. He does not complain of urinary symptoms but he is not a great historian. states that his speech is slower than normal and he is more fatigued than normal. He was discharged two weeks ago after about a 20 day admission for acute infectious encephalitis. He was on a 2 wk course of acyclovir after that admission, per ID recs. In the ED, he had a UA showing 4+ bact, mod leuk est, >50 WBCs. Urine and blood cultures were drawn. IM rocephin and 1 L NS was given. - Pertinent findings Laboratory Tests 06/23/18 06/23/18 06/23/18 13:45 14:04 14:04 WBC Hgb Hct Plt Count Sodium 130 L Potassium 5.9 H Chloride 96 L Carbon Dioxide 21 L BUN 38 H Creatinine 1.24 Glucose 194 H Lactic Acid 2.9 H Alkaline Phosphatase 237 H Ammonia Troponin I Urine Blood Moderate H Ur Leukocyte Esterase Large H Urine RBC 7-10 H Urine WBC Greater Than 50-TNTC H Urine Bacteria 4+ H 06/23/18 06/23/1819 14:04 14:04 14:04 WBC 7.0 Hgb 10.2 L Hct 32.8 L Plt Count 432 H Sodium Potassium Chloride Carbon Dioxide BUN Creatinine Glucose Lactic Acid Alkaline Phosphatase Ammonia 27 Troponin I 0.011 Urine Blood Ur Leukocyte Esterase Urine RBC Urine WBC Urine Bacteria EKG: NSR, T wave inversions in lateral leads, same as previous EKG from previous admission - Plan Date/Time: 06/23/18 [id number] I, Jc Sanchez MD, have evaluated this patient and agree with findings/plan as outlined by environmental engineering intern resident. Pertinent changes/additions are listed here. (1) Acute Infectious Encephalopathy - Progressive generalized weakness and dysarthria - Recent history of encephalitis thought possibly due to HSV1, completed 2 wk course of antibiotic - Admit to Telemetry - Likely that encephalopathy is 2/2 UTI, but with recent history of suspected HSV encephalitis, will have low threshold to consult ID. - Continue IV rocephin, IVFs, tylenol for fever/pain - Blood and Urine Cx pending - Flu swab pending (2) UTI - See #1 (3) Diarrhea - 3 day history of diarrhea - with hx of recent antibiotic use, checking c diff (4) Hyperkalemia - K+ of 5.9, no EKG changes from previous, no peaked T waves - IVFs and recheck BMP (5) Lactic acidosis - 2.9 in ED - IVFs and recheck (6) Mild dehydration - Has had decreased PO intake over the several days - IVFs (7) DM2 -mild SS -ACHS -restart home meds (8) Deconditioning - Was getting PT/OT at [facility] - Consulted PT/OT PPx: Lovenox Code Status: Full Addendum - Attending - Attending Attestation Date/Time: 06/24/18 1251 I personally evaluated the patient and discussed the management with Dr. Samuels and team. Seen on day of admission. I agree with and repeated the History, Examination, Assessment and Plan documented above with any addition or exceptions noted below. Patient confused, intermittently somnolent but occasionally answers questions appropriately. Nonfocal exam. I feel most likely working diagnosis is complicated UTI, with no current evidence of sepsis. Will treat accordingly. His imaging at his last hospitalization was unremarkable and did not reveal signs of encephalitis, but will consider repeat imaging. Will watch closely and consider ID consultation.
[2018-06-23] MEDS ORDERED: Dextrose 50% Abboject 50 ML SYRINGE SLOW IVP PRN (16:30)
[2018-06-23] MEDS ORDERED: Dextrose 5% in Water 1,000 ML IV PRN (16:30)
--- NOTE | 2018-06-23 16:31 | CT ---
CT BRAIN WITHOUT CONTRAST: Date: 06/23/18 HISTORY: Slurred speech. FINDINGS: Comparison made with exam of 05/17/18. No evidence of acute infarct, hemorrhage, midline shift, or abnormal extra-axial fluid collections ar e seen. 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 The ventricular size is stab le and the basilar cisterns are patent. The bony calvarium is intact. The visualized paranasal sinuse s and mastoid air cells are well aerated. IMPRESSION: Stable exam. No CT evidence of acute intracranial process. POS: OFF
[2018-06-23] MEDS ORDERED: Ondansetron ODT 4 MG TAB PO PRN (17:22)
[2018-06-23 19:25] LABS: Lactic Acid 1.3 mmol/L (0.5-2.2)
[2018-06-23 19:30] LABS: Anion Gap 13 mmol/L (10-20); BUN (Urea Nitrogen) 34 mg/dL (8.4-25.7); Calc. Creatinine Clearance 0 mL/min (70-130); Calcium 8.4 mg/dL (7.8-10.44); Carbon Dioxide 24 mmol/L (23-31); Chloride 99 mmol/L (98-107); Estimated GFR-MDRD 83; Glucose 138 mg/dL (80-115); Potassium 4.6 mmol/L (3.5-5.1); Sodium 131 mmol/L (136-145)
[2018-06-23 20:15] LABS: Folate (Folic Acid) 2.5 ng/mL (7.0-31.4)
[2018-06-24] MEDS: Sodium Chloride 0.9% 1,000 ML IV SCH ×5 (02:45→17:28)
[2018-06-24 06:18] LABS: Anion Gap 12 mmol/L (10-20); BUN (Urea Nitrogen) 26 mg/dL (8.4-25.7); Calc. Creatinine Clearance 123 mL/min (70-130); Calcium 8.2 mg/dL (7.8-10.44); Carbon Dioxide 24 mmol/L (23-31); Chloride 102 mmol/L (98-107); Estimated GFR-MDRD Greater than 90; Glucose 147 mg/dL (80-115); Potassium 4.3 mmol/L (3.5-5.1); Sodium 134 mmol/L (136-145)
[2018-06-24 06:31] LABS: Band 9 % (5-11); Hemoglobin 8.7 g/dL (14.0-18.0); Hypochromia SLIGHT = 6-15 cells (100X) (0-5/hpf); Lymphocytes 24 % (21-51); MDiff Complete? YES; Mean Corpuscular HGB CONC 32.2 g/dL (32.0-36.0); Mean Corpuscular Hemoglobin 31.5 pg (27.0-31.0); Mean Corpuscular Volume 97.9 fL (78.0-98.0); Mean Platelet Volume 6.2 fL (7.4-10.4); Monocytes 7 % (0-10); Neutrophil 60 % (42-75); Platelet Count 368 thou/uL (130-400); Platelet Morphology Comment Appears Adequate; RBC Distribution Width 21.2 % (11.5-14.5); Red Blood Cell (RBC) Count 2.77 mill/uL (4.70-6.10); White Blood Cell (WBC) Count 5.8 thou/uL (4.8-10.8)
--- NOTE | 2018-06-24 06:48 | PDOC.FM ---
Addendum entered and electronically signed by Jc Sanchez MD 06/24/18 11:12: Correction: Error in Subjective: Name is Osbaldo Joseph, not Mati Moncada Remainder of note is correct for this patient Original Note: - Subjective Subjective: Mati Moncada seen at bedside this morning. He states that he is doing better and ability to communicate is improving. His agrees, but states that he is not quite back to his baseline. Denies any acute events overnight. Denies fever, chills, chest pain, nausea, vomiting. Complains of intermittent suprapubic abdominal pain. - Objective MAR Reviewed: Yes Vital Signs & Weight: Vital Signs (12 hours) Temp Pulse Resp BP Pulse Ox 06/24/18 03:18 100.2 F H 97 14 146/70 H 92 L 06/24/18 00:00 98.0 F 91 16 168/77 H 94 L 06/23/18 20:45 99.4 F 86 18 143/78 H 99 Weight Weight 106.367 kg Result Diagrams: 06/24/18 05:44 06/24/18 05:44 Phys Exam - Physical Examination Constitutional: NAD HEENT: moist MMs, sclera anicteric Neck: no JVD, supple, full ROM Respiratory: no wheezing, no rales, no rhonchi, clear to auscultation bilateral Cardiovascular: RRR, no significant murmur Gastrointestinal: soft, no distention mild suprapubic ttp Musculoskeletal: no edema, pulses present Neurological: non-focal, normal sensation, moves all 4 limbs dysarthria, improvement from yesterdays exam Psychiatric: normal affect, A&O x 3 Dx/Plan (1) UTI (urinary tract infection) Status: Acute (2) Acute encephalopathy Code(s): G93.40 - ENCEPHALOPATHY, UNSPECIFIED Status: Acute (3) Hyponatremia Code(s): E87.1 - HYPO-OSMOLALITY AND HYPONATREMIA Status: Acute (4) Seizures Code(s): R56.9 - UNSPECIFIED CONVULSIONS Status: Acute (5) Tachycardia Code(s): R00.0 - TACHYCARDIA, UNSPECIFIED Status: Acute (6) CAD (coronary artery disease) Code(s): I25.10 - ATHSCL HEART DISEASE OF [place] CORONARY ARTERY W/O ANG PCTRS Status: Chronic Qualifiers: Coronary Disease-Associated Artery/Lesion type: [place] artery Associated angina: without angina (7) CKD (chronic kidney disease) stage 3, GFR 30-59 ml/min Status: Chronic (8) COPD (chronic obstructive pulmonary disease) Status: Chronic Qualifiers: COPD type: COPD with acute exacerbation Qualified Code(s): J44.1 - Chronic obstructive pulmonary disease with (acute) exacerbation (9) GERD (gastroesophageal reflux disease) Code(s): K21.9 - GASTRO-ESOPHAGEAL REFLUX DISEASE WITHOUT ESOPHAGITIS Status: Chronic (10) Hx of kidney transplant Status: Chronic (11) Hyperlipidemia Code(s): E78.5 - HYPERLIPIDEMIA, UNSPECIFIED Status: Chronic (12) IDDM (insulin dependent diabetes mellitus) Code(s): E11.9 - TYPE 2 DIABETES MELLITUS WITHOUT COMPLICATIONS; Z79.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 (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 OF INSULIN Status: Chronic (13) Normocytic anemia Code(s): D64.9 - ANEMIA, UNSPECIFIED Status: Chronic (14) JUDI on CPAP Code(s): G47.33 - OBSTRUCTIVE SLEEP APNEA (ADULT) (PEDIATRIC) Status: Chronic (15) Prostate cancer Code(s): C61 - MALIGNANT NEOPLASM OF PROSTATE Status: Chronic (16) Encephalitis due to human herpes simplex virus (HSV) Code(s): B00.4 - HERPESVIRAL ENCEPHALITIS Status: Suspected - Plan Plan: (1) Acute Infectious Encephalopathy - Progressive generalized weakness and dysarthria - 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 - Continue IV rocephin, IVFs, tylenol for fever/pain - Influenza neg - Blood Cx no growth to date - Urine Cx shows gram Neg ana m (2) UTI - See #1 (3) Diarrhea - 3 day history of diarrhea - with hx of recent antibiotic use, checking c diff - precautions in place until neg test (4) Hyperkalemia: resolved - K+ of 5.9, no EKG changes from previous, no peaked T waves - IVFs and recheck BMP showed K+ of 4.3 (5) Lactic acidosis-resolved - 2.9 in ED - IVFs and recheck was 1.3 (6) Mild dehydration - Has had decreased PO intake over the several days - IVFs (7) DM2 -mild SS -ACHS -restart home meds (8) Deconditioning - Was getting PT/OT at [facility] - Consulted PT/OT Addendum - Attending - Attending Attestation Date/Time: 06/24/18 [id number] I personally evaluated the patient and discussed the management with Dr. Sanchez. I agree with the History, Examination, Assessment and Plan documented above with any addition or exceptions noted below. UA showing gram neg. rods. Waiting on final culture. Continue IV rocephin. Pt is speaking clearer today though though processes are slowed and he tires easily. Pt worked with PT who tried to ambulate.
[2018-06-24] MEDS: Enoxaparin Sodium 40 MG/0.4 ML SYRINGE SC SCH (08:18)
[2018-06-24] MEDS: Phenazopyridine HCl 97.5 MG TABLET PO SCH ×3 (11:17→17:24)
[2018-06-24] MEDS: Acetaminophen 325 MG TAB PO PRN ×2 (13:42→21:11)
[2018-06-24] MEDS: cefTRIAXone\\ROCEPHIN 1 GM in Sodium Chloride 0.9% 100 ML IVPB SCH (16:31)
[2018-06-24] MEDS ORDERED: traMADol HCl 50 MG TAB PO PRN (22:56)
[2018-06-24] MEDS ORDERED: Polyethylene Glycol 3350 17 GM Packet PO PRN (22:56)
[2018-06-24] MEDS ORDERED: Non-Formulary Item 1 EACH (Insulin Lispro [Humalog Kwikpen U-100] 100 UNIT) SQ PRN (22:56)
[2018-06-24] MEDS ORDERED: HYDROcodone/Acetaminophen 10/325 mg Tablet PO PRN (22:56)
[2018-06-24] MEDS ORDERED: Loperamide HCl 2 MG CAP PO PRN (22:56)
[2018-06-25] MEDS: Sodium Chloride 0.9% 1,000 ML IV SCH ×3 (01:32→17:12)
[2018-06-25 05:46] LABS: Anion Gap 14 mmol/L (10-20); BUN (Urea Nitrogen) 13 mg/dL (8.4-25.7); Calc. Creatinine Clearance 152 mL/min (70-130); Calcium 7.4 mg/dL (7.8-10.44); Carbon Dioxide 18 mmol/L (23-31); Chloride 107 mmol/L (98-107); Estimated GFR-MDRD Greater than 90; Glucose 158 mg/dL (80-115); Potassium 3.8 mmol/L (3.5-5.1); Sodium 135 mmol/L (136-145)
[2018-06-25 06:04] LABS: Band 14 % (5-11); Hemoglobin 7.9 g/dL (14.0-18.0); Lymphocytes 19 % (21-51); MDiff Complete? YES; Mean Corpuscular Hemoglobin 31.4 pg (27.0-31.0); Mean Corpuscular Volume 98.1 fL (78.0-98.0); Mean Platelet Volume 6.2 fL (7.4-10.4); Monocytes 11 % (0-10); Neutrophil 56 % (42-75); Platelet Count 351 thou/uL (130-400); RBC Distribution Width 20.8 % (11.5-14.5); White Blood Cell (WBC) Count 4.6 thou/uL (4.8-10.8)
--- NOTE | 2018-06-25 06:49 | PDOC.FM ---
- Subjective Subjective: Osbaldo Joseph seen at bedside this morning. Overnight, he did complain of nausea and had worsened word finding difficulty, per patient's . Other than nausea , he denies any complaints. His words are spoken more clearly than previously. He became tachycardic yesterday. He was tachycardic during his previous admissions and his rate control/antihypertensive medications have not been initiated yet because medication reconciliation was just completed last night. - Objective MAR Reviewed: Yes Vital Signs & Weight: Vital Signs (12 hours) Temp Pulse Resp BP Pulse Ox 06/25/18 04:00 99.4 F 113 H 18 158/70 H 92 L 06/24/18 19:55 98.7 F 116 H 19 134/78 100 Weight Admit Weight 106.367 kg Weight 106.367 kg I&O: 06/23/18 06/24/18 06/25/18 06:59 06:59 06:59 Intake Total 1000 1870 Output Total 750 Balance 250 1870 Result Diagrams: 06/25/18 05:02 06/25/18 09:37 Phys Exam - Physical Examination Constitutional: NAD HEENT: moist MMs, sclera anicteric Neck: supple, full ROM Respiratory: no wheezing, no rales, no rhonchi, clear to auscultation bilateral Cardiovascular: no significant murmur tachycardic, regular Gastrointestinal: soft, non-tender, no distention Musculoskeletal: no edema, pulses present Neurological: non-focal, normal sensation Deviation from normal: A&O X2, seems restless Dx/Plan (1) Acute encephalopathy Code(s): G93.40 - ENCEPHALOPATHY, UNSPECIFIED Status: Acute (2) UTI (urinary tract infection) Status: Acute (3) Hyponatremia Code(s): E87.1 - HYPO-OSMOLALITY AND HYPONATREMIA Status: Acute (4) Seizures Code(s): R56.9 - UNSPECIFIED CONVULSIONS Status: Acute (5) Tachycardia Code(s): R00.0 - TACHYCARDIA, UNSPECIFIED Status: Acute (6) CAD (coronary artery disease) Code(s): I25.10 - ATHSCL HEART DISEASE OF [place] CORONARY ARTERY W/O ANG PCTRS Status: Chronic Qualifiers: Coronary Disease-Associated Artery/Lesion type: [place] artery Associated angina: without angina (7) CKD (chronic kidney disease) stage 3, GFR 30-59 ml/min Status: Chronic (8) COPD (chronic obstructive pulmonary disease) Status: Chronic Qualifiers: COPD type: COPD with acute exacerbation Qualified Code(s): J44.1 - Chronic obstructive pulmonary disease with (acute) exacerbation (9) GERD (gastroesophageal reflux disease) Code(s): K21.9 - GASTRO-ESOPHAGEAL REFLUX DISEASE WITHOUT ESOPHAGITIS Status: Chronic (10) Hx of kidney transplant Status: Chronic (11) Hyperlipidemia Code(s): E78.5 - HYPERLIPIDEMIA, UNSPECIFIED Status: Chronic (12) IDDM (insulin dependent diabetes mellitus) Code(s): E11.9 - TYPE 2 DIABETES MELLITUS WITHOUT COMPLICATIONS; 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 Status: Chronic (13) Normocytic anemia Code(s): D64.9 - ANEMIA, UNSPECIFIED Status: Chronic (14) JUDI on CPAP Code(s): G47.33 - OBSTRUCTIVE SLEEP APNEA (ADULT) (PEDIATRIC) Status: Chronic (15) Prostate cancer Code(s): C61 - MALIGNANT NEOPLASM OF PROSTATE Status: Chronic (16) Encephalitis due to human herpes simplex virus (HSV) Code(s): B00.4 - HERPESVIRAL ENCEPHALITIS Status: Suspected - Plan Plan: (1) Acute Infectious Encephalopathy - Progressive generalized weakness and dysarthria - 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 - Continue IV rocephin, IVFs, tylenol for fever/pain - Influenza neg - Blood Cx no growth to date - Urine Cx grew E. coli and Klebsiella, both sensitive to rocephin - waxing and waning sensorium and agitation overnight, possibly delirium. - Neurology consulted, Dr. Sr, appreciate recs. - ID consulted, Dr. Gerard, appreciate recs. Will consider restarting acyclovir as patient responded to this at prev admission. (2) UTI - See #1 (3) Diarrhea - 3 day history of diarrhea - with hx of recent antibiotic use, checking c diff - precautions in place until neg test (4) Hyperkalemia: resolved - K+ of 5.9, no EKG changes from previous, no peaked T waves - IVFs and recheck BMP showed K+ of 4.3 - 3.8 on 1/4/19 (5) Lactic acidosis-resolved - 2.9 in ED - IVFs and recheck was 1.3 (6) Mild dehydration - Has had decreased PO intake over the several days - IVFs (7) DM2 - mild SS - ACHS - restart home meds (8) Deconditioning - Was getting PT/OT at [facility] - Consulted PT/OT (9) Hypertension - Restarting home medications Addendum - Attending - Attending Attestation Date/Time: 06/25/18 2540 I personally evaluated the patient and discussed the management with Dr. Sanchez. I agree with the History, Examination, Assessment and Plan documented above with any addition or exceptions noted below. The patient is still confused and is restless in bed. EKG this morning shows sinus tach. Have asked nursing to give morning meds but he became nauseated. Gave pt zofran and they will retry giving morning meds. Consulting neurology for evaluation on the encephalopathy. May consider ID consult if needed. Pt will remain on rocephin for uti.
[2018-06-25] MEDS ORDERED: Ziprasidone 20 MG CAP PO SCH (07:30)
[2018-06-25] MEDS ORDERED: Amlodipine 5 MG TAB PO SCH ×3 (07:30→11:30)
[2018-06-25] MEDS ORDERED: Digoxin 0.125 MG TAB PO SCH ×3 (07:30→11:30)
[2018-06-25] MEDS ORDERED: Bumetanide 1 MG TAB PO SCH (09:00)
[2018-06-25] MEDS ORDERED: MYCOPHENOLATE MOFETIL 500 MG PO SCH (09:00)
[2018-06-25] MEDS: Mycophenolate 250 MG CAP PO SCH ×2 (09:05→22:01)
[2018-06-25] MEDS: Enoxaparin Sodium 40 MG/0.4 ML SYRINGE SC SCH (09:06)
[2018-06-25] MEDS: Allopurinol 100 MG TAB PO SCH (09:06)
[2018-06-25] MEDS: Calcium Carbonate 500 MG ChewTAB PO SCH ×2 (09:06→22:00)
[2018-06-25] MEDS: Colchicine 0.6 MG TAB PO SCH ×2 (09:07→22:00)
[2018-06-25] MEDS: Phenazopyridine HCl 97.5 MG TABLET PO SCH ×3 (09:07→17:12)
[2018-06-25] MEDS: Folic Acid/Vit B Comp W-C PO SCH (09:07)
[2018-06-25] MEDS: Calcitriol 0.25 MCG CAP PO SCH (09:07)
[2018-06-25] MEDS: Montelukast Sodium 10 mg Tablet PO SCH (09:07)
[2018-06-25] MEDS: predniSONE 5 MG TAB PO SCH (09:08)
[2018-06-25] MEDS: Docusate 100 MG CAP PO SCH ×2 (09:08→22:00)
[2018-06-25] MEDS: Atorvastatin Calcium 10 MG TAB PO SCH (09:09)
[2018-06-25] MEDS: Gabapentin 300 MG CAP PO SCH ×2 (09:10→22:00)
[2018-06-25] MEDS: Magnesium Oxide 400 MG TAB PO SCH ×2 (09:10→22:01)
[2018-06-25] MEDS: Aspirin 325 mg Enteric Coated Tablet PO SCH (09:10)
[2018-06-25] MEDS: Tacrolimus 0.5 MG CAP PO SCH ×2 (09:11→22:02)
[2018-06-25] MEDS: Cetirizine HCl 10 MG TAB PO SCH (09:13)
[2018-06-25] MEDS: Ondansetron ODT 4 MG TAB PO PRN (09:26)
[2018-06-25] MEDS ORDERED: Insulin Glargine 45 UNITS in Pre-Filled Syringe 1 EACH SC SCH (09:45)
[2018-06-25 10:09] LABS: Anion Gap 17 mmol/L (10-20); BUN (Urea Nitrogen) 11 mg/dL (8.4-25.7); Calc. Creatinine Clearance 150 mL/min (70-130); Calcium 7.9 mg/dL (7.8-10.44); Carbon Dioxide 17 mmol/L (23-31); Chloride 108 mmol/L (98-107); Estimated GFR-MDRD Greater than 90; Glucose 170 mg/dL (80-115); Potassium 4.1 mmol/L (3.5-5.1); Sodium 138 mmol/L (136-145)
[2018-06-25 10:16] LABS: Troponin I 0.041 ng/mL (< 0.028)
[2018-06-25] MEDS: Acetaminophen 325 MG TAB PO PRN ×2 (11:35→17:23)
[2018-06-25 13:58] LABS: CKMB 1.7 ng/mL (0-6.6)
[2018-06-25] MEDS: cefTRIAXone\\ROCEPHIN 1 GM in Sodium Chloride 0.9% 100 ML IVPB SCH (14:11)
[2018-06-25] MEDS ORDERED: Cosyntropin 250 MCG VIAL SLOW IVP SCH (16:00)
[2018-06-25 16:24] LABS: Digoxin 1.55 ng/mL (0.8-2.0)
[2018-06-25] MEDS: HumaLOG 300 UNITS/3 ML VIAL SC PRN (17:12)
[2018-06-25] MEDS: Amitriptyline HCl 10 MG TAB PO SCH (22:00)
[2018-06-25] MEDS: Insulin Glargine 45 UNITS in Pre-Filled Syringe 1 EACH SC SCH (22:01)
[2018-06-25] MEDS: traZODone HCl 50 MG TAB PO SCH (22:02)
[2018-06-26] MEDS: Sodium Chloride 0.9% 1,000 ML IV SCH ×3 (00:37→21:11)
--- NOTE | 2018-06-26 01:23 | CON ---
DATE OF CONSULTATION: 06/25/2018 CHIEF COMPLAINT: Altered mental status and possible encephalitis. HISTORY OF PRESENT ILLNESS: History was obtained both from his physician and the patient's . The patient was actually admitted to [facility] in April. He had complete workup and they were suspecting possible herpes encephalitis; however, CSF was incomplete for the physician due to inability to obtain sufficient CSF and he was subsequently discharged to [facility]. Lately, he has had poor coordination, loss of muscle control, and floppiness. His appetite is poor and he is making some progress with the physical therapist. He would go in and out of alertness sometimes and he is unable to participate in PT. Overall, he has declined recently and question now is whether there is any encephalitis persistent at this point or if there a concern for metabolic disturbance. PAST MEDICAL HISTORY: 1. Renal transplant 11 years ago. 2. Gallbladder surgery more than five years ago. 3. Diabetes. 4. Adrenal insufficiency. He also has: 1. Hyperlipidemia. 2. COPD. 3. Osteoarthritis. 4. Gastroesophageal reflux disease. 5. Hypertension. 6. Gout. SOCIAL HISTORY: Father from blood clots. ALLERGIES: HE IS ALLERGIC TO LATEX, MORPHINE, NSAIDS, PENICILLIN CAUSES SEVERE HIVES, POVIDONE IODINE CAUSES RASH, SHELLFISH ALLERGIES, TETRACYCLINES AND LISINOPRIL CAUSES COUGHING. MEDICATIONS: At home are extremely extensive. He is on: 1. Amitriptyline 20 mg per day. 2. Aspirin 325 mg per day. 3. Atorvastatin 10 mg per day. 4. Calcitriol 0.25 mcg per day. 5. Cetirizine 10 mg per day. 6. Metoprolol one tablet b.i.d. 7. Mycophenolate 500 mg b.i.d. 8. Tacrolimus 1 mg p.o. b.i.d. 9. Amlodipine 2.5 mg per day. 10. Allopurinol 300 mg per day. 11. Bumetanide 1 tablet per day. 12. Gabapentin 0.5 tablet per day. 13. Montelukast sodium 10 mg per day. 14. Abiraterone acetate once daily. 15. Colchicine 0.6 mg per day. 16. Docusate 100 mg b.i.d. 17. Gabapentin 900 mg at night. 18. Hydrocodone as needed. 19. Tramadol as needed. 20. Ondansetron as needed. 21. MiraLAX as needed. He is also on Tylenol, calcium carbonate, digoxin, diltiazem, magnesium oxide, phenytoin 150 mg t.i.d., prednisone, insulin, loperamide, pantoprazole, and trazodone. FAMILY HISTORY: Mother from [place]. SOCIAL HISTORY: Lives with his . 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 REVIEW OF SYSTEMS: Unreliable. Workup so far during this current admission the patient had a CT of the head, which shows stable exam with no old infarcts in the cerebellar hemispheres and no acute infarct. LABORATORY DATA: White count 4.6, hemoglobin 7.9, hematocrit 24.5, and platelets 351. Sodium 138, potassium 4.1, chloride 108, BUN 11, and creatinine 0.7. PHYSICAL EXAMINATION: VITAL SIGNS: Temperature 100.1, pulse 130, blood pressure 167/74, O2 saturations 97%. GENERAL APPEARANCE: He has generalized edema. CHEST: Shows bilateral rhonchi in the bases. CARDIOVASCULAR: S1 and S2 heard. No murmurs in the left upper extremity as the AV fistula with normal bruit. ABDOMEN: Soft. NEUROLOGICAL: Higher intellectual function. He knows that this is June but only with cuing. He knows he is at the hospital. He is not oriented to time but oriented to person and place. He is able to follow simple commands. Cranial nerves 2 through 12. Pupils size is 3 to 4 mm, reactive to light. No facial asymmetry. Tongue deviates to the left side and sensory exam normal bilaterally. Normal hearing bilaterally. Motor exam, bulk normal. Tone normal. Generally, he has generalized decreased strength. It is difficult to assess individual muscle groups, but he was cooperative. Overall strength is 4/5. Involuntary movements; he has movements in his face and the jaw mainly and also tongue. This is consistent with tardive dyskinesia, could be due to prior anti-nausea medicine use. In sensory exam, he has decreased sensation on the right side to touch and absent reflexes throughout. Cerebellar; normal [id number]. [id number], difficult to evaluate. IMPRESSION: The patient is a 68-year-old immunocompromised individuals with prior renal transplant and suspicion for herpes simplex encephalitis. His examination shows overall global decline in strength which could be due to generalized deconditioning and he is somewhat confused, not oriented to time, but oriented to place and person. His examination also shows tongue deviation to the left as decrease in sensation mainly in the right lower extremity and it is difficult to assess whether he has acute encephalitis, but this could be a continuing process which is suspicious for some kind of SOLAR RESOURCE ASSESSOR infectious etiology in this patient, which needs to be further evaluated. TREATMENT RECOMMENDATIONS: 1. I will request MRI of the brain without contrast. 2. Please consult our Infectious Disease specialist as well to see if we need to obtain any additional workup from an Infectious Disease point of view. He will need lumbar puncture again with workup for other SOLAR RESOURCE ASSESSOR infections mainly herpes simplex and other organisms. I will request my Neurology colleagues to follow up on this patient. Job ID: [id number]
--- NOTE | 2018-06-26 05:41 | PDOC.FM ---
- Subjective Subjective: Osbaldo Joseph seen at bedside this morning. Mr. Joseph has show impressive improvement overnight. He is answering questions much more quickly and appropriately. Does not appear as confused or easily fatigued. agrees with improvement. He denies any complaints and there were no acute events overnight. He denies fever, chills, chest pain, dyspnea, n/v/d, abdominal pain. He is scheduled for repeat brain MRI today. - Objective MAR Reviewed: Yes Vital Signs & Weight: Vital Signs (12 hours) Temp Pulse Resp BP Pulse Ox 06/26/18 04:00 98.1 F 91 18 134/60 95 06/26/18 00:40 94 L 06/25/18 23:32 98.6 F 80 16 147/67 H 94 L 06/25/18 21:40 99 06/25/18 21:34 98.5 F 82 16 119/56 L 99 Weight Admit Weight 106.367 kg Weight 106.367 kg I&O: 06/24/18 06/25/18 06/26/18 06:59 06:59 06:59 Intake Total 1000 3550 1920 Output Total 750 800 300 Balance 250 2750 1620 Result Diagrams: 06/26/18 08:20 06/26/18 06:40 Phys Exam - Physical Examination Constitutional: NAD HEENT: moist MMs, sclera anicteric Neck: no JVD, supple, full ROM Respiratory: no wheezing, no rales, no rhonchi, clear to auscultation bilateral Cardiovascular: RRR, no significant murmur Gastrointestinal: soft, non-tender, no distention Musculoskeletal: no edema, pulses present Neurological: non-focal, normal sensation, moves all 4 limbs Psychiatric: normal affect, A&O x 3 Skin: no rash Dx/Plan (1) Acute encephalopathy Code(s): G93.40 - ENCEPHALOPATHY, UNSPECIFIED Status: Acute (2) UTI (urinary tract infection) Status: Acute (3) Hyponatremia Code(s): E87.1 - HYPO-OSMOLALITY AND HYPONATREMIA Status: Acute (4) Seizures Code(s): R56.9 - UNSPECIFIED CONVULSIONS Status: Acute (5) Tachycardia Code(s): R00.0 - TACHYCARDIA, UNSPECIFIED Status: Acute (6) CAD (coronary artery disease) Code(s): I25.10 - ATHSCL HEART DISEASE OF [place] CORONARY ARTERY W/O ANG PCTRS Status: Chronic Qualifiers: Coronary Disease-Associated Artery/Lesion type: [place] artery Associated angina: without angina (7) CKD (chronic kidney disease) stage 3, GFR 30-59 ml/min Status: Chronic (8) COPD (chronic obstructive pulmonary disease) Status: Chronic Qualifiers: COPD type: COPD with acute exacerbation Qualified Code(s): J44.1 - Chronic obstructive pulmonary disease with (acute) exacerbation (9) GERD (gastroesophageal reflux disease) Code(s): K21.9 - GASTRO-ESOPHAGEAL REFLUX DISEASE WITHOUT ESOPHAGITIS Status: Chronic (10) Hx of kidney transplant Status: Chronic (11) Hyperlipidemia Code(s): E78.5 - HYPERLIPIDEMIA, UNSPECIFIED Status: Chronic (12) IDDM (insulin dependent diabetes mellitus) Code(s): E11.9 - TYPE 2 DIABETES MELLITUS WITHOUT COMPLICATIONS; 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 Status: Chronic (13) Normocytic anemia Code(s): D64.9 - ANEMIA, UNSPECIFIED Status: Chronic (14) JUDI on CPAP Code(s): G47.33 - OBSTRUCTIVE SLEEP APNEA (ADULT) (PEDIATRIC) Status: Chronic (15) Prostate cancer Code(s): C61 - MALIGNANT NEOPLASM OF PROSTATE Status: Chronic (16) Encephalitis due to human herpes simplex virus (HSV) Code(s): B00.4 - HERPESVIRAL ENCEPHALITIS Status: Suspected - Plan Plan: (1) Acute Infectious Encephalopathy - Progressive generalized weakness and dysarthria - 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 coli and Klebsiella, both sensitive to rocephin - Neurology consulted, Dr. Sr, appreciate recs. - Will officially consulted ID, Dr. Gerard today, as recommended by neurology. 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 Sanchez. I agree with the History, Examination, Assessment and Plan documented above with any addition or exceptions noted below. Patient with significant improvement in mental baseline this morning. Still unknown etiology. Neurology on board and has requested repeat brain imaging that will occur today. In previous hospitalizations, his cortisol level was extremely low and he possibly has some component of untreated adrenal insufficiency. Electrolytes were consistent with that upon admission. BP stable. Obtain cortisol stim test this morning, results pending. Will start hydrocortisone if abnormal. Otherwise continuing treatment for infection and workup of other causes of his recurrent encephalopathy.
[2018-06-26 07:35] LABS: Anion Gap 12 mmol/L (10-20); BUN (Urea Nitrogen) 9 mg/dL (8.4-25.7); Calc. Creatinine Clearance 161 mL/min (70-130); Calcium 7.1 mg/dL (7.8-10.44); Carbon Dioxide 20 mmol/L (23-31); Chloride 111 mmol/L (98-107); Estimated GFR-MDRD Greater than 90; Glucose 137 mg/dL (80-115); Sodium 139 mmol/L (136-145)
[2018-06-26 08:37] LABS: #Eosinphils 0.1 thou/uL (0.0-0.7); #Monocytes 0.5 thou/uL (0.11-0.59); #Neutrophils 2.1 thou/uL (1.40-6.50); %Basophils 0.6 % (0.0-1.0); %Eosinophils 2.4 % (0.0-10.0); %Lymphocytes 25.7 % (21.0-51.0); %Neutrophils 57.4 % (42.0-75.0); Hemoglobin 7.6 g/dL (14.0-18.0); Mean Corpuscular HGB CONC 31.9 g/dL (32.0-36.0); Mean Corpuscular Hemoglobin 31.5 pg (27.0-31.0); Mean Corpuscular Volume 98.9 fL (78.0-98.0); Mean Platelet Volume 5.9 fL (7.4-10.4); Platelet Count 324 thou/uL (130-400); RBC Distribution Width 20.9 % (11.5-14.5); Red Blood Cell (RBC) Count 2.42 mill/uL (4.70-6.10); White Blood Cell (WBC) Count 3.7 thou/uL (4.8-10.8)
[2018-06-26] MEDS: Allopurinol 100 MG TAB PO SCH (09:19)
[2018-06-26] MEDS: predniSONE 5 MG TAB PO SCH (09:19)
[2018-06-26] MEDS: Amlodipine 5 MG TAB PO SCH (09:20)
[2018-06-26] MEDS: Aspirin 325 mg Enteric Coated Tablet PO SCH (09:20)
[2018-06-26] MEDS: Calcitriol 0.25 MCG CAP PO SCH (09:21)
[2018-06-26] MEDS: Atorvastatin Calcium 10 MG TAB PO SCH (09:21)
[2018-06-26] MEDS: Calcium Carbonate 500 MG ChewTAB PO SCH ×2 (09:21→21:12)
[2018-06-26] MEDS: Gabapentin 300 MG CAP PO SCH ×2 (09:22→21:13)
[2018-06-26] MEDS: Magnesium Oxide 400 MG TAB PO SCH ×2 (09:22→21:15)
[2018-06-26] MEDS: Folic Acid/Vit B Comp W-C PO SCH (09:22)
[2018-06-26] MEDS: Montelukast Sodium 10 mg Tablet PO SCH (09:23)
[2018-06-26] MEDS: Mycophenolate 250 MG CAP PO SCH ×2 (09:24→21:16)
[2018-06-26] MEDS: Tacrolimus 0.5 MG CAP PO SCH ×2 (09:25→21:17)
[2018-06-26] MEDS: Docusate 100 MG CAP PO SCH ×2 (09:26→21:13)
[2018-06-26] MEDS: Phenazopyridine HCl 97.5 MG TABLET PO SCH (09:26)
[2018-06-26] MEDS: Digoxin 0.125 MG TAB PO SCH (09:27)
[2018-06-26] MEDS: Colchicine 0.6 MG TAB PO SCH ×2 (09:27→21:13)
[2018-06-26] MEDS: Insulin Glargine 45 UNITS in Pre-Filled Syringe 1 EACH SC SCH ×2 (09:28→21:15)
[2018-06-26] MEDS: Enoxaparin Sodium 40 MG/0.4 ML SYRINGE SC SCH (09:28)
[2018-06-26] MEDS: Cetirizine HCl 10 MG TAB PO SCH (10:09)
[2018-06-26] MEDS ORDERED: Hydrocortisone 10 mg Tablet PO SCH (13:30)
[2018-06-26] MEDS: cefTRIAXone\\ROCEPHIN 1 GM in Sodium Chloride 0.9% 100 ML IVPB SCH (14:49)
--- NOTE | 2018-06-26 15:15 | MRI ---
MRI BRAIN WITHOUT CONTRAST: Date: 06/26/18 HISTORY: Encephalitis. COMPARISON: CT brain dated 06/23/18 and MRI dated 05/18/18. FINDINGS: On the diffusion-weighted imaging sequence, there are no abnormal areas of diffusion restriction. Thi s is confirmed on the ADC map. Mild atrophy. No midline shift. No mass effect. On the susceptibility-weighted imaging sequence, there are no abnor mal areas of hemorrhage. The [place] flow-voids are maintained. Calvarial marrow signal appears maintained, although is limited due to motion. Corpus callosum is normal. IMPRESSION: No acute intracranial abnormality. POS: [facility]
--- NOTE | 2018-06-26 16:31 | PRG ---
DATE OF SERVICE: 06/26/2018 FOLLOWUP NEUROLOGY NOTE. PRESENT ILLNESS: This is followup for confusion. He reportedly is a lot more alert and oriented today. He was previously admitted to the hospital back in late April for altered mental status, and at that time was found to have seizures and thought to have encephalitis, possibly herpes. Note that inadequate spinal fluid was obtained. There was an elevated white count, but protein and glucose could not be measured and neither could herpes PCR be obtained. The lumbar puncture was tried several times including under fluoroscopy and Radiology, but only a minute amount of fluid could be obtained. He was treated presumptively for herpes encephalitis due to his symptoms and clinical symptomology and he was treated with acyclovir. He was also covered with antibiotics. He was started on Dilantin at that time for twitching and seizure activity, and his EEG was also abnormal showing epileptiform activity coming from the temporal lobe areas. Today, he is much more alert and awake. OBJECTIVE: VITAL SIGNS: Blood pressure 145/69, pulse 89 and regular, respiratory rate 18, and temperature 98.6. HEENT: Normal. NEUROLOGIC: Motor 5/5 strength. DTRs 1+. Toes downgoing. Sensation is normal. He is now awake and alert. He is oriented x3. He is calm and cooperative. DIAGNOSTIC STUDIES: Test results are reviewed. There was an MRI of the brain done today without contrast, which just showed mild atrophy and was negative. There was no areas of increased or decreased intensity, and no temporal lobe changes. There was some atrophy. Note that a Dilantin level on 06/25/2018, it was slightly elevated at 21.7, therapeutic being 10 to 20. A serum albumin level on June 23, 2018, was borderline low at 3.5. Renal function shows a creatinine of 0.67 and BUN of 9. Note that he has a history of having one kidney. He is a renal transplant patient. He has been found to have a urinary tract infection with E coli and Klebsiella pneumoniae on June 23, 2018. 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 He has much improved from that. He may have been encephalopathic this time due to urinary tract infection. Consider possible role of Dilantin elevation level. He does not appear to be having any clinical seizures at this time. PLAN: We will order a followup Dilantin level in the morning as well as albumin level and adjust his Dilantin dose accordingly. Job ID: [id number]
[2018-06-26] MEDS: Ondansetron ODT 4 MG TAB PO PRN (16:34)
[2018-06-26] MEDS: HumaLOG 300 UNITS/3 ML VIAL SC PRN (18:40)
[2018-06-26] MEDS: Amitriptyline HCl 10 MG TAB PO SCH (21:11)
[2018-06-26] MEDS: Hydrocortisone 10 mg Tablet PO SCH (21:14)
[2018-06-26] MEDS: traZODone HCl 50 MG TAB PO SCH (21:18)
[2018-06-27] MEDS: Sodium Chloride 0.9% 1,000 ML IV SCH ×3 (00:27→14:21)
--- NOTE | 2018-06-27 05:42 | PDOC.FM ---
- Subjective Subjective: Osbaldo Joseph seen at bedside this morning. He is doing well, his is with him. She states that she feels like he has continued to improve since yesterday. He had a normal Brain MRI yesterday. He had an abnormal cosyntropin stimulation test and was started on hydrocortisone yesterday 06/26 as well. He denies any fever, chills, chest pain, dyspnea, n/v. - Objective MAR Reviewed: Yes Vital Signs & Weight: Vital Signs (12 hours) Temp Pulse Resp BP Pulse Ox 06/27/18 04:03 97.1 F L 77 17 144/73 H 93 L 06/26/18 19:15 98.4 F 84 18 133/61 92 L Weight Admit Weight 106.367 kg Weight 109.452 kg I&O: 06/25/18 06/26/18 06/27/18 06:59 06:59 06:59 Intake Total 3550 3280 600 Output Total 800 1000 650 Balance 2750 2280 -50 Result Diagrams: 06/26/18 08:20 06/26/18 06:40 Radiology Reviewed by me: Yes (Brain MRI unremarkable) Phys Exam - Physical Examination Constitutional: NAD HEENT: moist MMs, sclera anicteric Neck: supple, full ROM Respiratory: no wheezing, no rales, no rhonchi, clear to auscultation bilateral Cardiovascular: RRR, no significant murmur Gastrointestinal: soft, non-tender Musculoskeletal: no edema, pulses present Neurological: normal sensation, moves all 4 limbs Psychiatric: normal affect, A&O x 3 Dx/Plan (1) Acute encephalopathy Code(s): G93.40 - ENCEPHALOPATHY, UNSPECIFIED Status: Acute (2) UTI (urinary tract infection) Status: Acute (3) Hyponatremia Code(s): E87.1 - HYPO-OSMOLALITY AND HYPONATREMIA Status: Acute (4) Seizures Code(s): R56.9 - UNSPECIFIED CONVULSIONS Status: Acute (5) Tachycardia Code(s): R00.0 - TACHYCARDIA, UNSPECIFIED Status: Acute (6) CAD (coronary artery disease) Code(s): I25.10 - ATHSCL HEART DISEASE OF [place] CORONARY ARTERY W/O ANG PCTRS Status: Chronic Qualifiers: Coronary Disease-Associated Artery/Lesion type: [place] artery Associated angina: without angina (7) CKD (chronic kidney disease) stage 3, GFR 30-59 ml/min Status: Chronic (8) COPD (chronic obstructive pulmonary disease) Status: Chronic Qualifiers: COPD type: COPD with acute exacerbation Qualified Code(s): J44.1 - Chronic obstructive pulmonary disease with (acute) exacerbation (9) GERD (gastroesophageal reflux disease) Code(s): K21.9 - GASTRO-ESOPHAGEAL REFLUX DISEASE WITHOUT ESOPHAGITIS Status: Chronic (10) Hx of kidney transplant Status: Chronic (11) Hyperlipidemia Code(s): E78.5 - HYPERLIPIDEMIA, UNSPECIFIED Status: Chronic (12) IDDM (insulin dependent diabetes mellitus) Code(s): E11.9 - TYPE 2 DIABETES MELLITUS WITHOUT COMPLICATIONS; 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 Status: Chronic (13) Normocytic anemia Code(s): D64.9 - ANEMIA, UNSPECIFIED Status: Chronic (14) JUDI on CPAP Code(s): G47.33 - OBSTRUCTIVE SLEEP APNEA (ADULT) (PEDIATRIC) Status: Chronic (15) Prostate cancer Code(s): C61 - MALIGNANT NEOPLASM OF PROSTATE Status: Chronic (16) Encephalitis due to human herpes simplex virus (HSV) Code(s): B00.4 - HERPESVIRAL ENCEPHALITIS Status: Suspected - Plan Plan: (1) Acute Infectious vs Metabolic Encephalopathy - Progressive generalized weakness and dysarthria - 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 coli and Klebsiella, both sensitive to rocephin - Neurology consulted, Dr. Sr, appreciate recs. 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 Sanchez. I agree with the History, Examination, Assessment and Plan documented above with any addition or exceptions noted below. Patient improved, no issues with somnolence overnight. Formally diagnosed with adrenal insufficiency and now on hydrocortisone for treatment. Monitor electrolytes closely. MRI revealed nothing acute. No new neuro recs. Afebrile and labs reassuring. Continue therapy and await pending labs. Continue current mgmt.
[2018-06-27] MEDS: Allopurinol 100 MG TAB PO SCH (09:25)
[2018-06-27] MEDS: predniSONE 5 MG TAB PO SCH (09:25)
[2018-06-27] MEDS: Amlodipine 5 MG TAB PO SCH (09:26)
[2018-06-27] MEDS: Atorvastatin Calcium 10 MG TAB PO SCH (09:26)
[2018-06-27] MEDS: Aspirin 325 mg Enteric Coated Tablet PO SCH (09:26)
[2018-06-27] MEDS: Calcitriol 0.25 MCG CAP PO SCH (09:27)
[2018-06-27] MEDS: Calcium Carbonate 500 MG ChewTAB PO SCH ×2 (09:27→21:57)
[2018-06-27] MEDS: Cetirizine HCl 10 MG TAB PO SCH (09:27)
[2018-06-27] MEDS: Colchicine 0.6 MG TAB PO SCH ×2 (09:27→21:58)
[2018-06-27] MEDS: Digoxin 0.125 MG TAB PO SCH (09:28)
[2018-06-27] MEDS: Docusate 100 MG CAP PO SCH ×2 (09:29→21:59)
[2018-06-27] MEDS: Folic Acid/Vit B Comp W-C PO SCH (09:29)
[2018-06-27] MEDS: Gabapentin 300 MG CAP PO SCH ×2 (09:29→21:57)
[2018-06-27] MEDS: Hydrocortisone 10 mg Tablet PO SCH ×2 (09:30→21:57)
[2018-06-27] MEDS: Montelukast Sodium 10 mg Tablet PO SCH (09:30)
[2018-06-27] MEDS: Magnesium Oxide 400 MG TAB PO SCH ×2 (09:30→21:59)
[2018-06-27] MEDS: Tacrolimus 0.5 MG CAP PO SCH ×2 (09:31→21:58)
[2018-06-27] MEDS: Enoxaparin Sodium 40 MG/0.4 ML SYRINGE SC SCH (09:32)
[2018-06-27] MEDS: Mycophenolate 250 MG CAP PO SCH ×2 (09:58→21:59)
[2018-06-27] MEDS: Insulin Glargine 45 UNITS in Pre-Filled Syringe 1 EACH SC SCH ×2 (09:59→22:00)
[2018-06-27 11:47] LABS: #Eosinphils 0.1 thou/uL (0.0-0.7); #Lymphocytes 1.1 thou/uL (1.20-3.40); #Monocytes 0.5 thou/uL (0.11-0.59); %Basophils 0.8 % (0.0-1.0); %Eosinophils 1.9 % (0.0-10.0); %Lymphocytes 29.5 % (21.0-51.0); %Monocytes 13.8 % (0.0-10.0); %Neutrophils 53.9 % (42.0-75.0); Hemoglobin 7.8 g/dL (14.0-18.0); Mean Corpuscular HGB CONC 31.8 g/dL (32.0-36.0); Mean Corpuscular Hemoglobin 31.6 pg (27.0-31.0); Mean Corpuscular Volume 99.4 fL (78.0-98.0); Mean Platelet Volume 6.1 fL (7.4-10.4); Platelet Count 328 thou/uL (130-400); Red Blood Cell (RBC) Count 2.46 mill/uL (4.70-6.10); White Blood Cell (WBC) Count 3.7 thou/uL (4.8-10.8)
[2018-06-27 12:03] LABS: Albumin 2.5 g/dL (3.4-4.8); Dilantin 20.1 ug/mL (10.0-20.0)
[2018-06-27 12:04] LABS: Anion Gap 12 mmol/L (10-20); BUN (Urea Nitrogen) 6 mg/dL (8.4-25.7); Calc. Creatinine Clearance 159 mL/min (70-130); Calcium 7.2 mg/dL (7.8-10.44); Carbon Dioxide 18 mmol/L (23-31); Chloride 111 mmol/L (98-107); Estimated GFR-MDRD Greater than 90; Glucose 178 mg/dL (80-115); Potassium 3.8 mmol/L (3.5-5.1); Sodium 137 mmol/L (136-145)
[2018-06-27] MEDS: Ondansetron ODT 4 MG TAB PO PRN (14:18)
[2018-06-27] MEDS: cefTRIAXone\\ROCEPHIN 1 GM in Sodium Chloride 0.9% 100 ML IVPB SCH (15:53)
--- NOTE | 2018-06-27 19:52 | PRG ---
DATE OF SERVICE: 06/27/2018 NEUROLOGY FOLLOWUP NOTE SUBJECTIVE: Neurology followup for altered mental status. He is awake and alert and feels well today. He is oriented and not having any complaints. His is present. OBJECTIVE: VITAL SIGNS: Blood pressure 139/63, pulse 79, respiratory rate 16, temperature 97.7, O2 saturation is 100% on room air. Motor 5/5 strength in the arms and legs. Test results showed that he had an MRI of the brain on 06/26/2018, it was normal. There was some mild atrophy. No diminished or increased intensities. Labs showed today a Dilantin level of 20.1. His albumin level was low at 2.5. The corrected Dilantin level with the calculation showed that this corresponds to a Dilantin level of 27. The patient is not exhibiting any signs of Dilantin toxicity. 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 He also had an EEG at that time that was consistent with encephalitis, and he had some focal seizures then too and was started on Dilantin. Dilantin was chosen rather than Keppra because of his one kidney status. Note that the patient is on chronic immunosuppressive therapy in order to not reject his kidney transplant. He had a urinary tract infection upon admission at this time, which could have contributed to his altered mental status as well as he had adrenal insufficiency and his medication has been adjusted. No signs of any central nervous system infection at this time and no sign of any ongoing seizures or strokes. PLAN: Discussed with the patient and his . We will lower the Dilantin dose. He is currently on Dilantin 150 mg p.o. 3 times a day. I will reduce this to 150 mg p.o. twice a day. Recommend that his Dilantin level and albumin level be followed. He needs to follow up with Neurology when he gets out of the hospital. He is advised to not drive due to the seizures that he had back in April. Recommend Neurology followup regarding his Dilantin and albumin levels tomorrow. Job ID: [id number] [facility]
[2018-06-27] MEDS ORDERED: Phenytoin 125 MG/5 ML UDCUP PO SCH (21:00)
[2018-06-27] MEDS ORDERED: Phenytoin 50 MG Chewable Tablet PO SCH (21:00)
[2018-06-27] MEDS: traZODone HCl 50 MG TAB PO SCH (21:58)
[2018-06-27] MEDS: Amitriptyline HCl 10 MG TAB PO SCH (21:58)
[2018-06-28] MEDS: Sodium Chloride 0.9% 1,000 ML IV SCH (03:00)
[2018-06-28 05:45] LABS: #Eosinphils 0.1 thou/uL (0.0-0.7); #Lymphocytes 1.2 thou/uL (1.20-3.40); #Monocytes 0.5 thou/uL (0.11-0.59); #Neutrophils 2.4 thou/uL (1.40-6.50); %Basophils 0.3 % (0.0-1.0); %Eosinophils 1.3 % (0.0-10.0); %Lymphocytes 29.4 % (21.0-51.0); %Neutrophils 56.9 % (42.0-75.0); Hemoglobin 7.8 g/dL (14.0-18.0); Mean Corpuscular HGB CONC 31.2 g/dL (32.0-36.0); Mean Corpuscular Hemoglobin 31.5 pg (27.0-31.0); Mean Platelet Volume 6.3 fL (7.4-10.4); Platelet Count 321 thou/uL (130-400); RBC Distribution Width 21.1 % (11.5-14.5); Red Blood Cell (RBC) Count 2.46 mill/uL (4.70-6.10); White Blood Cell (WBC) Count 4.2 thou/uL (4.8-10.8)
[2018-06-28 05:52] LABS: Albumin 2.4 g/dL (3.4-4.8); Dilantin 17.9 ug/mL (10.0-20.0)
[2018-06-28 05:53] LABS: Anion Gap 13 mmol/L (10-20); BUN (Urea Nitrogen) 4 mg/dL (8.4-25.7); Calc. Creatinine Clearance 164 mL/min (70-130); Calcium 7.3 mg/dL (7.8-10.44); Carbon Dioxide 17 mmol/L (23-31); Chloride 110 mmol/L (98-107); Estimated GFR-MDRD Greater than 90; Glucose 194 mg/dL (80-115); Potassium 3.9 mmol/L (3.5-5.1); Sodium 136 mmol/L (136-145)
--- NOTE | 2018-06-28 08:43 | PDOC.FM ---
- Subjective Subjective: This morning patient is AxOx3. He was able to walk 46ft with PT assistance yesterday. States he has been walking to the restroom without difficulty. Family states his mentation is much improved since time of admission. Patient denies CP, SOB, cough, N/V. Patient states he had a few episodes of non-bloody diarrhea overnight, states he thinks he took too much colace. - Objective Vital Signs & Weight: Vital Signs (12 hours) Temp Pulse Resp BP Pulse Ox 06/28/18 03:48 97 F L 78 19 143/67 H 96 Weight Admit Weight 106.367 kg Weight 113.625 kg I&O: 06/27/18 06/28/18 06/29/18 06:59 06:59 06:59 Intake Total 600 2870 Output Total 650 1000 Balance -50 1870 Result Diagrams: 06/28/18 04:48 06/28/18 04:49 Phys Exam - Physical Examination Constitutional: NAD HEENT: PERRLA, moist MMs Neck: supple Respiratory: no wheezing, clear to auscultation bilateral Cardiovascular: RRR, no significant murmur Gastrointestinal: soft, non-tender, no distention, positive bowel sounds Musculoskeletal: no edema, pulses present Neurological: moves all 4 limbs Psychiatric: normal affect, A&O x 3 Skin: no rash, cap refill <2 seconds Dx/Plan (1) Acute encephalopathy Code(s): G93.40 - ENCEPHALOPATHY, UNSPECIFIED Status: Acute (2) UTI (urinary tract infection) Status: Acute (3) Seizures Code(s): R56.9 - UNSPECIFIED CONVULSIONS Status: Acute (4) CKD (chronic kidney disease) stage 3, GFR 30-59 ml/min Status: Chronic (5) COPD (chronic obstructive pulmonary disease) Status: Chronic Qualifiers: COPD type: COPD with acute exacerbation Qualified Code(s): J44.1 - Chronic obstructive pulmonary disease with (acute) exacerbation (6) Hx of kidney transplant Status: Chronic (7) IDDM (insulin dependent diabetes mellitus) Code(s): E11.9 - TYPE 2 DIABETES MELLITUS WITHOUT COMPLICATIONS; Z79.4 - NURSING HOME (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 OF INSULIN Status: Chronic (8) Morbid obesity with BMI of 40.0-44.9, adult Code(s): E66.01 - MORBID (SEVERE) OBESITY DUE TO EXCESS CALORIES; Z68.41 - BODY MASS INDEX (BMI) 40.0-44.9, ADULT Status: Chronic (9) JUDI on CPAP Code(s): G47.33 - OBSTRUCTIVE SLEEP APNEA (ADULT) (PEDIATRIC) Status: Chronic (10) Prostate cancer Code(s): C61 - MALIGNANT NEOPLASM OF PROSTATE Status: Chronic - Plan Plan: # Acute Infectious vs Metabolic Encephalopathy, suspect adrenal insufficiency - on admit reported progressive generalized weakness and dysarthria, now much improved - 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 coli and Klebsiella, both sensitive to rocephin - Neurology consulted, Dr. Sr, appreciate recs. - abnormal cosyntropin stim test - Started hydrocortisone on 06/26/18 # Elevated Dilantin level, hx of seizures - corrected level 31 today - suspect will need to continue titrating down - neuro recs appreciated # UTI- resolved - asymptomatic - on rocephin since 06/24 # Diarrhea - 1 episode overnight # Hyperkalemia: resolved # Lactic acidosis-resolved # Mild dehydration- resolved # DM2 - mild SS - ACHS - home meds # Deconditioning - Was getting PT/OT at [facility] - Consulted PT/OT # Hypertension - home medications Dispo: 1-2 days pending neuro recs Addendum - Attending - Attending Attestation Date/Time: 06/28/18 0532 I personally evaluated the patient and discussed the management with Dr. Samuels. I agree with the History, Examination, Assessment and Plan documented above with any addition or exceptions noted below. Patient doing well and A&Ox4 this morning. He is requesting to go home upon discharge. Afebrile and labs stable. Continue to work with PT and to decide if he would be a good candidate to return home or if he should go to rehab after discharge. Electrolytes stable on Cortef, continue dose for now. Decreasing Dilantin per Neuro recs and monitoring levels.
[2018-06-28] MEDS: Colchicine 0.6 MG TAB PO SCH ×2 (09:11→21:28)
[2018-06-28] MEDS: Tacrolimus 0.5 MG CAP PO SCH ×2 (09:11→21:41)
[2018-06-28] MEDS: Calcium Carbonate 500 MG ChewTAB PO SCH ×2 (09:11→21:31)
[2018-06-28] MEDS: Enoxaparin Sodium 40 MG/0.4 ML SYRINGE SC SCH (09:11)
[2018-06-28] MEDS: Calcitriol 0.25 MCG CAP PO SCH (09:16)
[2018-06-28] MEDS: Allopurinol 100 MG TAB PO SCH (09:16)
[2018-06-28] MEDS: Hydrocortisone 10 mg Tablet PO SCH ×2 (09:16→21:30)
[2018-06-28] MEDS: Aspirin 325 mg Enteric Coated Tablet PO SCH (09:17)
[2018-06-28] MEDS: Montelukast Sodium 10 mg Tablet PO SCH (09:17)
[2018-06-28] MEDS: predniSONE 5 MG TAB PO SCH (09:17)
[2018-06-28] MEDS: Atorvastatin Calcium 10 MG TAB PO SCH (09:17)
[2018-06-28] MEDS: Docusate 100 MG CAP PO SCH ×2 (09:17→21:28)
[2018-06-28] MEDS: Digoxin 0.125 MG TAB PO SCH (09:17)
[2018-06-28] MEDS: Folic Acid/Vit B Comp W-C PO SCH (09:17)
[2018-06-28] MEDS: Amlodipine 5 MG TAB PO SCH (09:18)
[2018-06-28] MEDS: Magnesium Oxide 400 MG TAB PO SCH ×2 (09:18→21:28)
[2018-06-28] MEDS: Gabapentin 300 MG CAP PO SCH ×2 (09:20→21:27)
[2018-06-28] MEDS: Phenytoin 125 MG/5 ML UDCUP PO SCH ×2 (09:35→21:33)
[2018-06-28] MEDS: Mycophenolate 250 MG CAP PO SCH ×2 (09:35→21:31)
[2018-06-28] MEDS: Cetirizine HCl 10 MG TAB PO SCH (09:35)
[2018-06-28] MEDS: Insulin Glargine 45 UNITS in Pre-Filled Syringe 1 EACH SC SCH ×2 (09:35→21:39)
[2018-06-28 13:59] VITALS: BMI 37.0
[2018-06-28] MEDS: cefTRIAXone\\ROCEPHIN 1 GM in Sodium Chloride 0.9% 100 ML IVPB SCH (15:19)
[2018-06-28] MEDS: traZODone HCl 50 MG TAB PO SCH (21:28)
[2018-06-28] MEDS: Amitriptyline HCl 10 MG TAB PO SCH (21:29)
[2018-06-29 08:05] LABS: Anion Gap 10 mmol/L (10-20); BUN (Urea Nitrogen) Less than 4 mg/dL (8.4-25.7); Calc. Creatinine Clearance 187 mL/min (70-130); Calcium 7.2 mg/dL (7.8-10.44); Carbon Dioxide 21 mmol/L (23-31); Chloride 111 mmol/L (98-107); Estimated GFR-MDRD Greater than 90; Potassium 3.9 mmol/L (3.5-5.1); Sodium 138 mmol/L (136-145)
[2018-06-29 08:10] LABS: Glucose 53 mg/dL (80-115)
--- NOTE | 2018-06-29 08:13 | PDOC.FM ---
- Subjective Subjective: This morning patient is a&ox4. He states he slept well overnight and denies any pain this AM. Long discussion was had regarding dipso location. Patient and family agree that patient would benefit from time at [place] to gain his strength back. He denies headache, sob, or cough overnight. He has been eating well and is hungry at time of exam. - Objective Vital Signs & Weight: Vital Signs (12 hours) Temp Pulse Resp BP Pulse Ox 06/29/18 04:00 97.6 F 76 18 148/73 H 98 06/29/18 00:00 98.4 F 78 18 159/84 H 100 Weight Admit Weight 106.367 kg Weight 113.625 kg I&O: 06/28/18 06/29/18 06/30/18 06:59 06:59 06:59 Intake Total 2870 980 Output Total 1000 1000 Balance 1870 -20 Result Diagrams: 06/29/18 07:30 06/29/18 07:31 Phys Exam - Physical Examination Constitutional: NAD HEENT: PERRLA, moist MMs Respiratory: no wheezing, clear to auscultation bilateral Cardiovascular: RRR, no significant murmur Gastrointestinal: soft, non-tender, no distention, positive bowel sounds Musculoskeletal: no edema, pulses present Neurological: non-focal, moves all 4 limbs Psychiatric: normal affect, A&O x 3 Skin: no rash, cap refill <2 seconds Dx/Plan (1) Acute encephalopathy Code(s): G93.40 - ENCEPHALOPATHY, UNSPECIFIED Status: Acute (2) UTI (urinary tract infection) Status: Acute (3) Seizures Code(s): R56.9 - UNSPECIFIED CONVULSIONS Status: Acute (4) CKD (chronic kidney disease) stage 3, GFR 30-59 ml/min Status: Chronic (5) COPD (chronic obstructive pulmonary disease) Status: Chronic Qualifiers: COPD type: COPD with acute exacerbation Qualified Code(s): J44.1 - Chronic obstructive pulmonary disease with (acute) exacerbation (6) Hx of kidney transplant Status: Chronic (7) IDDM (insulin dependent diabetes mellitus) Code(s): E11.9 - TYPE 2 DIABETES MELLITUS WITHOUT COMPLICATIONS; Z79.4 - [employer] (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 OF INSULIN Status: Chronic (8) Morbid obesity with BMI of 40.0-44.9, adult Code(s): E66.01 - MORBID (SEVERE) OBESITY DUE TO EXCESS CALORIES; Z68.41 - BODY MASS INDEX (BMI) 40.0-44.9, ADULT Status: Chronic (9) JUDI on CPAP Code(s): G47.33 - OBSTRUCTIVE SLEEP APNEA (ADULT) (PEDIATRIC) Status: Chronic (10) Prostate cancer Code(s): C61 - MALIGNANT NEOPLASM OF PROSTATE Status: Chronic - Plan Plan: # Acute Infectious vs Metabolic Encephalopathy, suspect adrenal insufficiency - on admit reported progressive generalized weakness and dysarthria, now much improved - 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 coli and Klebsiella, both sensitive to rocephin - Neurology consulted, Dr. Sr, appreciate recs. - abnormal cosyntropin stim test - Started hydrocortisone on 06/26/18, since this time patient has improved considerably - overall suspect multifactorial cause of encephalopathy both adrenal insufficiency and UTI likely contributed # Elevated Dilantin level, hx of seizures - corrected level 31 yesterday - suspect will need to continue titrating down - neuro recs appreciated # UTI- resolved - asymptomatic - on rocephin since # Diarrhea- resolved # Hyperkalemia: resolved # Lactic acidosis-resolved # Mild dehydration- resolved # DM2 - mild SS - ACHS - home meds # Deconditioning - Was getting PT/OT at [facility] - Consulted PT/OT # Hypertension - home medications Dispo: stable for d/c to [place] Addendum - Attending - Attending Attestation Date/Time: 06/29/18 1020 I personally evaluated the patient and discussed the management with Dr. Samuels. I agree with the History, Examination, Assessment and Plan documented above with any addition or exceptions noted below. Patient continues to make improvements daily. He ambulated 150 feet yesterday with PT and continues to advance. His electrolytes are stable on hydrocortisone and BP at goal. Afebrile and labs stable. Has completed course of Rocephin for UTI. Stable for discharge once he is accepted at [facility].
[2018-06-29 08:17] LABS: Hemoglobin 7.6 g/dL (14.0-18.0); Mean Corpuscular HGB CONC 31.7 g/dL (32.0-36.0); Mean Corpuscular Hemoglobin 31.6 pg (27.0-31.0); Mean Corpuscular Volume 99.5 fL (78.0-98.0); Mean Platelet Volume 5.9 fL (7.4-10.4); Platelet Count 342 thou/uL (130-400); RBC Distribution Width 21.5 % (11.5-14.5); White Blood Cell (WBC) Count 4.8 thou/uL (4.8-10.8)
[2018-06-29 09:42] LABS: Albumin 2.5 g/dL (3.4-4.8)
--- NOTE | 2018-06-29 09:43 | PDOC.EVN ---
Event Note - Event Note Event Note: corrected phenytoin 24.1 decreased phenytoin to 100mg BID
[2018-06-29 09:44] LABS: Band 15 % (5-11); Eosinophils 2 % (0-10); Hypochromia SLIGHT = 6-15 cells (100X) (0-5/hpf); Lymphocytes 39 % (21-51); MDiff Complete? YES; Monocytes 9 % (0-10); Myelocyte 1 % (0-0); Neutrophil 34 % (42-75); Ovalocytes SLIGHT = 2-5 cells (100X) (0-1/hpf); Polychromasia MODERATE = 3-4 cells (100X) (0-2/hpf)
[2018-06-29] MEDS: Tacrolimus 0.5 MG CAP PO SCH ×2 (09:48→20:57)
[2018-06-29] MEDS: Cetirizine HCl 10 MG TAB PO SCH (09:49)
[2018-06-29] MEDS: Allopurinol 100 MG TAB PO SCH (09:49)
[2018-06-29] MEDS: Aspirin 325 mg Enteric Coated Tablet PO SCH (09:50)
[2018-06-29] MEDS: Folic Acid/Vit B Comp W-C PO SCH (09:50)
[2018-06-29] MEDS: predniSONE 5 MG TAB PO SCH (09:50)
[2018-06-29] MEDS: Docusate 100 MG CAP PO SCH ×2 (09:50→20:55)
[2018-06-29] MEDS: Mycophenolate 250 MG CAP PO SCH ×2 (09:50→21:05)
[2018-06-29] MEDS: Calcitriol 0.25 MCG CAP PO SCH (09:51)
[2018-06-29] MEDS: Montelukast Sodium 10 mg Tablet PO SCH (09:51)
[2018-06-29] MEDS: Calcium Carbonate 500 MG ChewTAB PO SCH ×2 (09:51→20:56)
[2018-06-29] MEDS: Digoxin 0.125 MG TAB PO SCH (09:51)
[2018-06-29] MEDS: Colchicine 0.6 MG TAB PO SCH ×2 (09:51→20:55)
[2018-06-29] MEDS: Magnesium Oxide 400 MG TAB PO SCH ×2 (09:51→20:56)
[2018-06-29] MEDS: Gabapentin 300 MG CAP PO SCH ×2 (09:52→20:54)
[2018-06-29] MEDS: Atorvastatin Calcium 10 MG TAB PO SCH (09:52)
[2018-06-29] MEDS: Amlodipine 5 MG TAB PO SCH (09:52)
[2018-06-29] MEDS: Insulin Glargine 45 UNITS in Pre-Filled Syringe 1 EACH SC SCH ×2 (09:53→21:40)
[2018-06-29] MEDS: Enoxaparin Sodium 40 MG/0.4 ML SYRINGE SC SCH (09:54)
[2018-06-29] MEDS: Hydrocortisone 10 mg Tablet PO SCH ×2 (10:02→21:04)
[2018-06-29] MEDS: Ondansetron ODT 4 MG TAB PO PRN (14:27)
[2018-06-29] MEDS: traZODone HCl 50 MG TAB PO SCH (20:55)
[2018-06-29] MEDS: Amitriptyline HCl 10 MG TAB PO SCH (20:56)
--- NOTE | 2018-06-30 08:55 | PDOC.FM ---
- Subjective Subjective: Patient walked 162 ft yesterday with PT asstitance. Has no complaints this morning. AxOx4. Patient denies pain, cough, fevers, chills, sweats, N/V/D. - Objective Vital Signs & Weight: Vital Signs (12 hours) Temp Pulse Resp BP Pulse Ox 06/30/18 07:39 98.0 F 67 16 135/72 98 06/30/18 04:00 97.6 F 67 18 117/67 96 Weight Admit Weight 106.367 kg Weight 113.625 kg I&O: 06/29/18 06/30/18 07/01/18 06:59 06:59 06:59 Intake Total 980 600 Output Total 1000 Balance -20 600 Result Diagrams: 06/29/18 07:30 06/29/18 07:31 Phys Exam - Physical Examination Constitutional: NAD HEENT: PERRLA, moist MMs Respiratory: no wheezing, clear to auscultation bilateral Cardiovascular: RRR, no significant murmur Gastrointestinal: soft, non-tender, no distention, positive bowel sounds Musculoskeletal: no edema, pulses present Neurological: non-focal, moves all 4 limbs Psychiatric: normal affect, A&O x 3 Skin: no rash, cap refill <2 seconds Dx/Plan (1) Acute encephalopathy Code(s): G93.40 - ENCEPHALOPATHY, UNSPECIFIED Status: Acute (2) UTI (urinary tract infection) Status: Acute (3) Seizures Code(s): R56.9 - UNSPECIFIED CONVULSIONS Status: Acute (4) CKD (chronic kidney disease) stage 3, GFR 30-59 ml/min Status: Chronic (5) COPD (chronic obstructive pulmonary disease) Status: Chronic Qualifiers: COPD type: COPD with acute exacerbation Qualified Code(s): J44.1 - Chronic obstructive pulmonary disease with (acute) exacerbation (6) Hx of kidney transplant Status: Chronic (7) IDDM (insulin dependent diabetes mellitus) Code(s): E11.9 - TYPE 2 DIABETES MELLITUS WITHOUT COMPLICATIONS; Z79.4 - CLINICAL TECHNOLOGIST (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 OF INSULIN Status: Chronic (8) Morbid obesity with BMI of 40.0-44.9, adult Code(s): E66.01 - MORBID (SEVERE) OBESITY DUE TO EXCESS CALORIES; Z68.41 - BODY MASS INDEX (BMI) 40.0-44.9, ADULT Status: Chronic (9) JUDI on CPAP Code(s): G47.33 - OBSTRUCTIVE SLEEP APNEA (ADULT) (PEDIATRIC) Status: Chronic (10) Prostate cancer Code(s): C61 - MALIGNANT NEOPLASM OF PROSTATE Status: Chronic - Plan Plan: # Acute Infectious vs Metabolic Encephalopathy, suspect adrenal insufficiency- resolved - on admit reported progressive generalized weakness and dysarthria, now much improved - 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 coli and Klebsiella, both sensitive to rocephin - Neurology consulted, Dr. Sr, appreciate recs. - abnormal cosyntropin stim test - Started hydrocortisone on 06/26/18, since this time patient has improved considerably - overall suspect multifactorial cause of encephalopathy both adrenal insufficiency and UTI likely contributed # Elevated Dilantin level, hx of seizures - corrected level 31 06/29, titrated down to 100mg BID - neuro recs appreciated # UTI- resolved - asymptomatic # Diarrhea- resolved # Hyperkalemia: resolved # Lactic acidosis-resolved # Mild dehydration- resolved # DM2 - mild SS - ACHS - home meds # Deconditioning - Was getting PT/OT at [facility] - Consulted PT/OT # Hypertension - home medications Dispo: stable for d/c to [place] Addendum - Attending - Attending Attestation Date/Time: 06/30/18 1031 I personally evaluated the patient and discussed the management with Dr. Samuels. I agree with the History, Examination, Assessment and Plan documented above with any addition or exceptions noted below. Patient doing well. Continues to advance with PT. Will check electrolytes q2d while here to ensure his dosing of hydrocortisone is adequate. BP improved. Continues to be afebrile with normal mentation and has completed treatment for UTI.
[2018-06-30] MEDS: Hydrocortisone 10 mg Tablet PO SCH ×3 (09:30→21:07)
[2018-06-30] MEDS: Insulin Glargine 45 UNITS in Pre-Filled Syringe 1 EACH SC SCH ×2 (09:45→21:08)
[2018-06-30] MEDS: Allopurinol 100 MG TAB PO SCH (09:46)
[2018-06-30] MEDS: Calcium Carbonate 500 MG ChewTAB PO SCH ×2 (09:46→21:06)
[2018-06-30] MEDS: Mycophenolate 250 MG CAP PO SCH ×2 (09:47→21:08)
[2018-06-30] MEDS: Folic Acid/Vit B Comp W-C PO SCH (09:47)
[2018-06-30] MEDS: Amlodipine 5 MG TAB PO SCH (09:48)
[2018-06-30] MEDS: Montelukast Sodium 10 mg Tablet PO SCH (09:51)
[2018-06-30] MEDS: Atorvastatin Calcium 10 MG TAB PO SCH (09:52)
[2018-06-30] MEDS: Calcitriol 0.25 MCG CAP PO SCH (09:52)
[2018-06-30] MEDS: predniSONE 5 MG TAB PO SCH (09:53)
[2018-06-30] MEDS: Magnesium Oxide 400 MG TAB PO SCH ×2 (09:53→21:08)
[2018-06-30] MEDS: Tacrolimus 0.5 MG CAP PO SCH ×2 (09:53→21:09)
[2018-06-30] MEDS: Colchicine 0.6 MG TAB PO SCH ×2 (09:53→21:06)
[2018-06-30] MEDS: Aspirin 325 mg Enteric Coated Tablet PO SCH (09:53)
[2018-06-30] MEDS: Enoxaparin Sodium 40 MG/0.4 ML SYRINGE SC SCH (09:54)
[2018-06-30] MEDS: Cetirizine HCl 10 MG TAB PO SCH (09:54)
[2018-06-30] MEDS: Digoxin 0.125 MG TAB PO SCH (09:55)
[2018-06-30] MEDS: Docusate 100 MG CAP PO SCH ×2 (09:57→21:06)
[2018-06-30] MEDS: Gabapentin 300 MG CAP PO SCH ×2 (10:03→21:07)
[2018-06-30] MEDS ORDERED: Bumetanide 1 MG TAB PO SCH (11:30)
[2018-06-30 11:58] LABS: Hemoglobin 7.9 g/dL (14.0-18.0); Mean Corpuscular HGB CONC 31.7 g/dL (32.0-36.0); Mean Corpuscular Hemoglobin 31.7 pg (27.0-31.0); Mean Platelet Volume 6.3 fL (7.4-10.4); Platelet Count 342 thou/uL (130-400); RBC Distribution Width 21.7 % (11.5-14.5); Red Blood Cell (RBC) Count 2.48 mill/uL (4.70-6.10); White Blood Cell (WBC) Count 4.6 thou/uL (4.8-10.8)
[2018-06-30 12:16] LABS: Anion Gap 13 mmol/L (10-20); BUN (Urea Nitrogen) 6 mg/dL (8.4-25.7); Calc. Creatinine Clearance 158 mL/min (70-130); Calcium 7.7 mg/dL (7.8-10.44); Carbon Dioxide 21 mmol/L (23-31); Chloride 107 mmol/L (98-107); Estimated GFR-MDRD Greater than 90; Glucose 142 mg/dL (80-115); Potassium 3.9 mmol/L (3.5-5.1); Sodium 137 mmol/L (136-145)
[2018-06-30 12:48] LABS: Anisocytosis MODERATE=16-30 cells (100X) (0-5/hpf); Band 13 % (5-11); Eosinophils 3 % (0-10); Hypochromia SLIGHT = 6-15 cells (100X) (0-5/hpf); Lymphocytes 40 % (21-51); MDiff Complete? YES; Metamyelocyte 1 % (0-0); Monocytes 11 % (0-10); Neutrophil 32 % (42-75); Platelet Morphology Comment Appears Adequate; Polychromasia SLIGHT = 2-3 cells (100X) (0-2/hpf); Schistocytes SLIGHT = 2-5 cells (100X) (0-1/hpf)
[2018-06-30] MEDS: Abiraterone Acetate [Zytiga] 1,000 MG PO SCH ×2 (19:19→19:20)
[2018-06-30] MEDS: Phenytoin 125 MG/5 ML UDCUP PO SCH (19:22)
[2018-06-30] MEDS: Amitriptyline HCl 10 MG TAB PO SCH (21:05)
[2018-06-30] MEDS: traZODone HCl 50 MG TAB PO SCH (21:09)
[2018-07-01 07:41] LABS: Hemoglobin 8.1 g/dL (14.0-18.0); Mean Corpuscular HGB CONC 30.9 g/dL (32.0-36.0); Mean Corpuscular Hemoglobin 31.1 pg (27.0-31.0); Mean Platelet Volume 6.5 fL (7.4-10.4); Platelet Count 364 thou/uL (130-400); RBC Distribution Width 21.7 % (11.5-14.5); Red Blood Cell (RBC) Count 2.61 mill/uL (4.70-6.10); White Blood Cell (WBC) Count 4.6 thou/uL (4.8-10.8)
[2018-07-01 07:56] LABS: Anion Gap 14 mmol/L (10-20); BUN (Urea Nitrogen) 6 mg/dL (8.4-25.7); Calc. Creatinine Clearance 162 mL/min (70-130); Calcium 7.9 mg/dL (7.8-10.44); Carbon Dioxide 22 mmol/L (23-31); Chloride 106 mmol/L (98-107); Estimated GFR-MDRD Greater than 90; Glucose 77 mg/dL (80-115); Potassium 3.9 mmol/L (3.5-5.1); Sodium 138 mmol/L (136-145)
[2018-07-01] MEDS: Allopurinol 100 MG TAB PO SCH (08:13)
[2018-07-01] MEDS: Docusate 100 MG CAP PO SCH ×2 (08:13→20:35)
[2018-07-01] MEDS: Mycophenolate 250 MG CAP PO SCH ×2 (08:13→20:36)
[2018-07-01] MEDS: Calcitriol 0.25 MCG CAP PO SCH (08:13)
[2018-07-01] MEDS: Colchicine 0.6 MG TAB PO SCH ×2 (08:14→20:35)
[2018-07-01] MEDS: Folic Acid/Vit B Comp W-C PO SCH (08:14)
[2018-07-01] MEDS: Magnesium Oxide 400 MG TAB PO SCH ×2 (08:14→20:35)
[2018-07-01] MEDS: Hydrocortisone 10 mg Tablet PO SCH ×2 (08:14→20:36)
[2018-07-01] MEDS: Aspirin 325 mg Enteric Coated Tablet PO SCH (08:14)
[2018-07-01] MEDS: Amlodipine 5 MG TAB PO SCH (08:15)
[2018-07-01] MEDS: Montelukast Sodium 10 mg Tablet PO SCH (08:15)
[2018-07-01] MEDS: Atorvastatin Calcium 10 MG TAB PO SCH (08:17)
[2018-07-01] MEDS: predniSONE 5 MG TAB PO SCH (08:17)
[2018-07-01] MEDS: Calcium Carbonate 500 MG ChewTAB PO SCH ×2 (08:18→20:34)
[2018-07-01] MEDS: Bumetanide 1 MG TAB PO SCH (08:19)
[2018-07-01] MEDS: Enoxaparin Sodium 40 MG/0.4 ML SYRINGE SC SCH (08:20)
[2018-07-01] MEDS: Cetirizine HCl 10 MG TAB PO SCH (08:21)
[2018-07-01] MEDS: Tacrolimus 0.5 MG CAP PO SCH ×2 (08:22→20:37)
[2018-07-01] MEDS: Digoxin 0.125 MG TAB PO SCH (08:23)
[2018-07-01] MEDS: Insulin Glargine 45 UNITS in Pre-Filled Syringe 1 EACH SC SCH (08:31)
[2018-07-01] MEDS: Ondansetron ODT 4 MG TAB PO PRN ×2 (08:43→20:33)
--- NOTE | 2018-07-01 08:56 | PDOC.FM ---
Addendum entered and electronically signed by Hayes Samuels MD 07/01/18 10:36: Please note Adrenal Insufficiency contributing to encephalopathy as diagnosed problem Original Note: - Subjective Subjective: This morning patient denies pain. He was able to walk 166ft yesterday. He is eating well per his . States they are looking forward to going to [place]. - Objective Vital Signs & Weight: Vital Signs (12 hours) Temp Pulse Resp BP BP Pulse Ox 07/01/18 08:23 73 07/01/18 08:18 73 166/73 H 07/01/18 08:15 73 166/73 H 07/01/18 07:54 97.5 F L 73 18 166/73 H 94 L 07/01/18 04:00 97.2 F L 69 16 142/80 H 100 07/01/18 00:00 98.0 F 73 18 117/68 99 06/30/18 21:02 98.1 F 77 20 126/78 100 Weight Admit Weight 106.367 kg Weight 113.625 kg I&O: 06/30/18 07/01/18 07/02/18 06:59 06:59 06:59 Intake Total 600 1060 Balance 600 1060 Result Diagrams: 07/01/18 06:45 07/01/18 06:45 Phys Exam - Physical Examination Constitutional: NAD HEENT: PERRLA, moist MMs Neck: no nodes Respiratory: no wheezing, clear to auscultation bilateral Cardiovascular: RRR, no significant murmur Gastrointestinal: soft, non-tender, no distention, positive bowel sounds Musculoskeletal: no edema, pulses present Neurological: non-focal, moves all 4 limbs Psychiatric: normal affect, A&O x 3 Skin: no rash, cap refill <2 seconds Dx/Plan (1) Acute encephalopathy Code(s): G93.40 - ENCEPHALOPATHY, UNSPECIFIED Status: Acute (2) UTI (urinary tract infection) Status: Acute (3) Seizures Code(s): R56.9 - UNSPECIFIED CONVULSIONS Status: Acute (4) CKD (chronic kidney disease) stage 3, GFR 30-59 ml/min Status: Chronic (5) COPD (chronic obstructive pulmonary disease) Status: Chronic Qualifiers: COPD type: COPD with acute exacerbation Qualified Code(s): J44.1 - Chronic obstructive pulmonary disease with (acute) exacerbation (6) Hx of kidney transplant Status: Chronic (7) IDDM (insulin dependent diabetes mellitus) Code(s): E11.9 - TYPE 2 DIABETES MELLITUS WITHOUT COMPLICATIONS; Z79.4 - SENIOR LIVING (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 OF INSULIN Status: Chronic (8) Morbid obesity with BMI of 40.0-44.9, adult Code(s): E66.01 - MORBID (SEVERE) OBESITY DUE TO EXCESS CALORIES; Z68.41 - BODY MASS INDEX (BMI) 40.0-44.9, ADULT Status: Chronic (9) JUDI on CPAP Code(s): G47.33 - OBSTRUCTIVE SLEEP APNEA (ADULT) (PEDIATRIC) Status: Chronic (10) Prostate cancer Code(s): C61 - MALIGNANT NEOPLASM OF PROSTATE Status: Chronic (11) Adrenal insufficiency Code(s): E27.40 - UNSPECIFIED ADRENOCORTICAL INSUFFICIENCY Status: Chronic - Plan Plan: # Acute Infectious vs Metabolic Encephalopathy, suspect adrenal insufficiency- resolved - a&ox3, walking with PT, doing well - on admit reported progressive generalized weakness and dysarthria, now much improved - 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 coli and Klebsiella, both sensitive to rocephin - Neurology consulted, Dr. Sr, appreciate recs. - abnormal cosyntropin stim test - Started hydrocortisone on 06/26/18, since this time patient has improved considerably - overall suspect multifactorial cause of encephalopathy both adrenal insufficiency and UTI likely contributed # Elevated Dilantin level, hx of seizures - corrected level 31 06/29, titrated down to 100mg BID - neuro recs appreciated # UTI- resolved - asymptomatic # Diarrhea- resolved # Hyperkalemia: resolved # Lactic acidosis-resolved # Mild dehydration- resolved # DM2 - mild SS - ACHS - home meds - decreased night time dose of insulin today # Deconditioning - Was getting PT/OT at [facility] - Consulted PT/OT # Hypertension - home medications Dispo: stable for d/c to [place] Addendum - Attending - Attending Attestation Date/Time: 07/01/18 1107 I personally evaluated the patient and discussed the management with Dr. Samuels. I agree with the History, Examination, Assessment and Plan documented above with any addition or exceptions noted below. Patient doing well. Electrolytes and BP wnl. Continues to work well with PT. Awaiting SNF acceptance.
[2018-07-01] MEDS ORDERED: Bumetanide 1 MG TAB PO SCH (09:00)
[2018-07-01] MEDS ORDERED: Insulin Glargine 45 UNITS in Pre-Filled Syringe 1 EACH SC SCH (09:00)
[2018-07-01 09:09] LABS: Anisocytosis SLIGHT = 6-15 cells (100X) (0-5/hpf); Band 15 % (5-11); Hypochromia SLIGHT = 6-15 cells (100X) (0-5/hpf); Lymphocytes 35 % (21-51); MDiff Complete? YES; Metamyelocyte 1 % (0-0); Monocytes 17 % (0-10); Myelocyte 1 % (0-0); Neutrophil 27 % (42-75); Platelet Morphology Comment Appears Adequate; Polychromasia MODERATE = 3-4 cells (100X) (0-2/hpf); Reactive Lymphocytes 4 % (0-10)
[2018-07-01] MEDS: Gabapentin 300 MG CAP PO SCH ×2 (10:24→20:35)
--- NOTE | 2018-07-01 19:11 | EKG ---
Test Reason : C/O CHEST PAIN Blood Pressure : / mmHG Vent. Rate : 129 BPM Atrial Rate : 129 BPM P-R Int : 206 ms QRS Dur : 074 ms QT Int : 290 ms P-R-T Axes : 086 046 242 degrees QTc Int : 424 ms Unusual P axis, possible ectopic atrial tachycardia Abnormal ECG Confirmed by CAROLINA RAMOS ([id number]) on 07/01/2018 7:11:03 PM Referred By: EMILIA Confirmed By:CAROLINA RAMOS
[2018-07-01] MEDS: traZODone HCl 50 MG TAB PO SCH (20:34)
[2018-07-01] MEDS: Amitriptyline HCl 10 MG TAB PO SCH (20:35)
[2018-07-01] MEDS ORDERED: Insulin Glargine 25 UNITS in Pre-Filled Syringe 1 EACH SC SCH (21:00)
--- NOTE | 2018-07-02 06:58 | PDOC.FM ---
- Subjective Subjective: This morning patient states he slept well. He did have one low sugar overnight, but ate a snack and it improved. He has been walking around 160ft everyday which is quite the improvement from time of admission. He denies fevers, chills , sweats, N/V/D. He is AxOx4. - Objective Vital Signs & Weight: Vital Signs (12 hours) Temp Pulse Resp BP Pulse Ox 07/02/18 06:20 97.4 F L 72 16 126/73 99 07/02/18 00:00 97.4 F L 72 18 138/84 99 07/01/18 20:45 97.5 F L 72 18 134/82 98 07/01/18 20:30 98 Weight Admit Weight 106.367 kg Weight 113.625 kg I&O: 06/30/18 07/01/18 07/02/18 06:59 06:59 06:59 Intake Total 600 1060 1270 Balance 600 1060 1270 Result Diagrams: 07/02/18 07:25 07/02/18 07:25 Phys Exam - Physical Examination Constitutional: NAD HEENT: PERRLA, moist MMs Respiratory: no wheezing, clear to auscultation bilateral Cardiovascular: RRR, no significant murmur Gastrointestinal: soft, non-tender, no distention, positive bowel sounds Musculoskeletal: no edema, pulses present Neurological: non-focal, moves all 4 limbs Psychiatric: normal affect, A&O x 3 Skin: no rash, cap refill <2 seconds Dx/Plan (1) Acute encephalopathy Code(s): G93.40 - ENCEPHALOPATHY, UNSPECIFIED Status: Acute (2) UTI (urinary tract infection) Status: Acute (3) Seizures Code(s): R56.9 - UNSPECIFIED CONVULSIONS Status: Acute (4) CKD (chronic kidney disease) stage 3, GFR 30-59 ml/min Status: Chronic (5) COPD (chronic obstructive pulmonary disease) Status: Chronic Qualifiers: COPD type: COPD with acute exacerbation Qualified Code(s): J44.1 - Chronic obstructive pulmonary disease with (acute) exacerbation (6) Hx of kidney transplant Status: Chronic (7) IDDM (insulin dependent diabetes mellitus) Code(s): E11.9 - TYPE 2 DIABETES MELLITUS WITHOUT COMPLICATIONS; Z79.4 - TECHNICAL AID (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 OF INSULIN Status: Chronic (8) Morbid obesity with BMI of 40.0-44.9, adult Code(s): E66.01 - MORBID (SEVERE) OBESITY DUE TO EXCESS CALORIES; Z68.41 - BODY MASS INDEX (BMI) 40.0-44.9, ADULT Status: Chronic (9) JUDI on CPAP Code(s): G47.33 - OBSTRUCTIVE SLEEP APNEA (ADULT) (PEDIATRIC) Status: Chronic (10) Prostate cancer Code(s): C61 - MALIGNANT NEOPLASM OF PROSTATE Status: Chronic - Plan Plan: # Adrenal Insufficiency - confirmed with AM cortisol, cosyntropin stim test - patient's mentation improved after starting cortisone - will send home on current regimen of 10mg AM, 5mg PM # Acute Infectious vs Metabolic Encephalopathy- resolved - a&ox3, walking with PT, doing well - on admit reported progressive generalized weakness and dysarthria, now much improved - 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 coli and Klebsiella, both sensitive to rocephin - Neurology consulted, Dr. Sr, appreciate recs. - abnormal cosyntropin stim test - Started hydrocortisone on 06/26/18, since this time patient has improved considerably # Elevated Dilantin level, hx of seizures - corrected level 31 06/29, titrated down to 100mg BID - neuro recs appreciated # UTI- resolved - asymptomatic # Diarrhea- resolved # Hyperkalemia: resolved # Lactic acidosis-resolved # Mild dehydration- resolved # DM2 - mild SS - ACHS - home meds - decreased night time dose of insulin once again today # Deconditioning - Was getting PT/OT at [facility] - Consulted PT/OT # Hypertension - home medications Dispo: stable for d/c to [place], accepted, will go this AM Addendum - Attending - Attending Attestation Date/Time: 07/02/18 1013 I personally evaluated the patient and discussed the management with Dr. Samuels. I agree with the History, Examination, Assessment and Plan documented above with any addition or exceptions noted below. Patient feeling poorly this morning due to hypoglycemia. We have adjusted his insulin levels and will likely need mcc adjustment due to appetite changes as well as hormonal changes now that we are treating his adrenal insufficiency correctly. He has been accepted for SNF placement and will be discharged there today. Will need routine monitoring of glucose, BP, and electrolytes in that setting with adjusting insulin and diabetic regimen as needed. He is doing well with therapy and stable for discharge.
[2018-07-02 08:11] LABS: Anion Gap 10 mmol/L (10-20); BUN (Urea Nitrogen) 7 mg/dL (8.4-25.7); Calc. Creatinine Clearance 172 mL/min (70-130); Calcium 7.6 mg/dL (7.8-10.44); Carbon Dioxide 26 mmol/L (23-31); Chloride 107 mmol/L (98-107); Estimated GFR-MDRD Greater than 90; Potassium 4.3 mmol/L (3.5-5.1); Sodium 139 mmol/L (136-145)
[2018-07-02 08:19] LABS: Glucose 40 mg/dL (80-115)
[2018-07-02 08:34] LABS: Hemoglobin 7.2 g/dL (14.0-18.0); Mean Corpuscular HGB CONC 32.1 g/dL (32.0-36.0); Mean Corpuscular Hemoglobin 31.7 pg (27.0-31.0); Mean Corpuscular Volume 98.8 fL (78.0-98.0); Mean Platelet Volume 6.2 fL (7.4-10.4); Platelet Count 331 thou/uL (130-400); RBC Distribution Width 22.1 % (11.5-14.5); Red Blood Cell (RBC) Count 2.26 mill/uL (4.70-6.10); White Blood Cell (WBC) Count 4.3 thou/uL (4.8-10.8)
[2018-07-02] MEDS: Colchicine 0.6 MG TAB PO SCH (08:54)
[2018-07-02] MEDS: Bumetanide 1 MG TAB PO SCH (08:54)
[2018-07-02] MEDS: Montelukast Sodium 10 mg Tablet PO SCH (08:54)
[2018-07-02] MEDS: Folic Acid/Vit B Comp W-C PO SCH (08:55)
[2018-07-02] MEDS: Calcitriol 0.25 MCG CAP PO SCH (08:55)
[2018-07-02] MEDS: Allopurinol 100 MG TAB PO SCH (08:55)
[2018-07-02] MEDS: predniSONE 5 MG TAB PO SCH (08:56)
[2018-07-02] MEDS: Docusate 100 MG CAP PO SCH (08:56)
[2018-07-02] MEDS: Magnesium Oxide 400 MG TAB PO SCH (08:56)
[2018-07-02] MEDS: Atorvastatin Calcium 10 MG TAB PO SCH (08:56)
[2018-07-02] MEDS: Tacrolimus 0.5 MG CAP PO SCH (08:56)
[2018-07-02] MEDS: Calcium Carbonate 500 MG ChewTAB PO SCH (08:56)
[2018-07-02] MEDS: Digoxin 0.125 MG TAB PO SCH (08:57)
[2018-07-02] MEDS: Gabapentin 300 MG CAP PO SCH (08:59)
[2018-07-02] MEDS: Aspirin 325 mg Enteric Coated Tablet PO SCH (08:59)
[2018-07-02] MEDS: Enoxaparin Sodium 40 MG/0.4 ML SYRINGE SC SCH (08:59)
[2018-07-02] MEDS ORDERED: Amlodipine 10 MG TAB PO SCH (09:00)
[2018-07-02] MEDS ORDERED: Insulin Glargine 35 UNITS in Pre-Filled Syringe SC SCH (09:00)
[2018-07-02] MEDS: Cetirizine HCl 10 MG TAB PO SCH (09:01)
[2018-07-02] MEDS: Hydrocortisone 10 mg Tablet PO SCH (09:07)
[2018-07-02] MEDS: Ondansetron ODT 4 MG TAB PO PRN (09:15)
[2018-07-02] MEDS: Mycophenolate 250 MG CAP PO SCH (09:15)
[2018-07-02 09:22] LABS: Anisocytosis SLIGHT = 6-15 cells (100X) (0-5/hpf); Band 11 % (5-11); Eosinophils 2 % (0-10); Hypochromia SLIGHT = 6-15 cells (100X) (0-5/hpf); Lymphocytes 49 % (21-51); MDiff Complete? YES; Metamyelocyte 1 % (0-0); Monocytes 6 % (0-10); Neutrophil 31 % (42-75); Polychromasia SLIGHT = 2-3 cells (100X) (0-2/hpf)
[2018-07-02 11:55] VITALS: BP 144/74; TEMP 97.9
--- NOTE | 2018-07-03 08:27 | DIS ---
DATE OF ADMISSION: 06/23/2018 DATE OF DISCHARGE: 07/02/2018 ADMITTING ATTENDING: Zaki Garcia MD. DISCHARGE ATTENDING: Edison Ureña MD CONSULTS: Neurology. PROCEDURES: Brain MRI on 06/26, shows no acute intracranial abnormality. PRIMARY DIAGNOSIS: Acute encephalopathy, multifactorial. SECONDARY DIAGNOSIS: Adrenal insufficiency, urinary tract infection, seizures, chronic kidney disease, chronic obstructive pulmonary disease, history of kidney transplant, insulin-dependent diabetes mellitus, morbid obesity, obstructive sleep apnea, prostate cancer, elevated Dilantin level, diarrhea, hyperkalemia, lactic acidosis resolved, mild dehydration, deconditioning, hypertension. DISCHARGE MEDICATIONS: 1. Hydrocortisone 10 mg every morning. 2. Hydrocortisone 5 mg nightly. 3. Amlodipine 10 mg daily. 4. Levemir 25 units at bedtime, 35 units in the morning. 5. Dilantin 100 mg twice daily. 6. Metoprolol. 7. Calcitriol. 8. Tacrolimus. 9. Amitriptyline. 10. Atorvastatin. 11. Aspirin. 12. Mycophenolate mofetil. 13. Allopurinol. 14. Bumetanide. 15. Montelukast. 16. Gabapentin. 17. Zytiga. 18. Colace. 19. Colcrys. 20. [place]. 21. Gabapentin. 22. MiraLAX. 23. Zofran. 24. Digoxin. 25. Diltiazem. 26. Protonix. Discontinued medications: 1. Dilantin 150 mg twice daily, changed to 100 mg twice daily. 2. Insulin dose decreased to 35 units in the morning, 25 at night. HISTORY OF PRESENT ILLNESS/HOSPITAL COURSE: This is a 68-year-old gentleman, who presented to the ER from [place] with Past medical history of CAD, COPD, GERD, history of JUDI, hyperlipidemia, and prostate cancer for altered mental status and speech changes for 2 days. stated that changes have been progressive over the past 2 or 3 days. He had not been drinking or eating as much. The reported physical weakness. 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 He completed a 2-week course of acyclovir. Denied any fevers, chills, or sweats. The patient was A and O x2 at the time of admission. Throughout the course of this admission, the patient's encephalopathy was thought to be due to multifactorial causes. The first of which was a UTI, which was treated. The second of which was adrenal insufficiency. The patient had abnormal a.m. cortisol and cosyntropin stim test. The patient was started on hydrocortisone. It was thought that the adrenal insufficiency may have been going on for some time. During the patient's previous admission, when he was treated for HSV encephalitis, he received stress dose of steroids and his mentation improved and was on a taper. As the steroids were tapered off, his mentation decreased and was ultimately brought back. Once hydrocortisone was started, his mentation rapidly improved. The third contributing factor to his encephalopathy was elevated Dilantin levels. When corrected for his hypoalbuminemia, his Dilantin levels were mildly elevated, and ultimately, the dose was decreased to 100 mg b.i.d. The patient stayed in the hospital for an extra 3 to 4 days awaiting placement and is ultimately placed at [facility] for additional rehabilitation. The patient's sugars varied throughout the stay. Towards the end of the stay, he had been having hypoglycemic episodes and his insulin regimen was gradually tapered down. This could be secondary to his body relieving the sympathetic from adrenal insufficiency from his changing diet in the hospital or from being on the steroids. His sugars will need to be watched closely and insulin regimen titrated appropriately over at [place]. He uses Levemir at home and uses Lantus inpatient. This also could have been a contributing factor. Please co-sign this note to Dr. Edison Ureña. DISPOSITION: Stable. DISCHARGE INSTRUCTIONS: 1. Location, [place]. 2. Diet, diabetic. 3. Activity, as tolerated. 4. Follow up, Dr. Josephine Christina in 7 days. Job ID: [id number]
--- NOTE | 2018-07-03 20:11 | EKG ---
Test Reason : Blood Pressure : / mmHG Vent. Rate : 077 BPM Atrial Rate : 077 BPM P-R Int : 206 ms QRS Dur : 090 ms QT Int : 344 ms P-R-T Axes : 095 070 -78 degrees QTc Int : 389 ms Normal sinus rhythm Cannot rule out Inferior infarct , age undetermined Abnormal ECG Confirmed by SHRUTHI ANGELO ([id number]), book or script editor TOYA URIBE ([id number]) on 07/03/2018 8:10:50 PM Referred By: Confirmed By:SHRUTHI ANGELO
== END 2018-07-02 11:54 | DRG 643 ==
LOC: ERS 13:32 → ERHOLD 16:43 → 2NO 20:55 → T4-B 06-28 18:21
PROVIDERS: ADMIT Emergency Medicine; ATTEND Emergency Medicine
DX: E27.40 Unspecified adrenocortical insufficiency (principal); G93.41 Metabolic encephalopathy; N39.0 Urinary tract infection, site not specified; Z94.0 Kidney transplant status; E87.1 Hypo-osmolality and hyponatremia; E87.2 Acidosis; C79.51 Secondary malignant neoplasm of bone; J44.1 Chronic obstructive pulmonary disease with (acute) exacerbation; Z68.41 Body mass index [BMI] 40.0-44.9, adult; G93.49 Other encephalopathy; R79.89 Other specified abnormal findings of blood chemistry; I25.10 Atherosclerotic heart disease of native coronary artery without angina pectoris; K21.9 Gastro-esophageal reflux disease without esophagitis; E78.5 Hyperlipidemia, unspecified; G47.33 Obstructive sleep apnea (adult) (pediatric); Z79.899 Other long term (current) drug therapy; Z88.8 Allergy status to other drugs, medicaments and biological substances; Z91.040 Latex allergy status; Z88.5 Allergy status to narcotic agent; Z91.013 Allergy to seafood; Z79.82 Long term (current) use of aspirin; I12.9 Hypertensive chronic kidney disease with stage 1 through stage 4 chronic kidney disease, or unspecified chronic kidney disease; E11.22 Type 2 diabetes mellitus with diabetic chronic kidney disease; N18.3 Chronic kidney disease, stage 3 (moderate); Z79.4 Long term (current) use of insulin; D63.8 Anemia in other chronic diseases classified elsewhere; E86.0 Dehydration; E87.5 Hyperkalemia; C61 Malignant neoplasm of prostate; R19.7 Diarrhea, unspecified; G40.909 Epilepsy, unspecified, not intractable, without status epilepticus; E66.01 Morbid (severe) obesity due to excess calories; E88.09 Other disorders of plasma-protein metabolism, not elsewhere classified; E11.649 Type 2 diabetes mellitus with hypoglycemia without coma; R47.1 Dysarthria and anarthria; B96.20 Unspecified Escherichia coli [E. coli] as the cause of diseases classified elsewhere; B96.1 Klebsiella pneumoniae [K. pneumoniae] as the cause of diseases classified elsewhere
CPT/HCPCS: 36415; 36416; 51701; 70450; 70551; 71045; 80048; 80053; 80162; 80185; 80306; 80307; 80400; 81003; 81015; 82040; 82140; 82550; 82553; 82607; 82746; 83605; 84145; 84484; 85025; 85610; 85730; 87040; 87077; 87086; 87186; 87804; 93005; 93010; 94760; 96361; 96365; A4353; J0696; J0834; J1650; J7050; J7507; J7517; Q0162

== ENCOUNTER 2018-07-13 16:58 | Inpatient (IN) | payer MEDICARE ==
[2018-07-13 20:02] LABS: Calcium 7.7 mg/dL (7.8-10.44); Chloride 94 mmol/L (98-107); Glucose 189 mg/dL (80-115); Sodium 125 mmol/L (136-145)
[2018-07-13 20:03] LABS: Anion Gap 15 mmol/L (10-20); Bilirubin, Total 0.5 mg/dL (0.2-1.2); Carbon Dioxide 21 mmol/L (23-31)
[2018-07-13 20:05] LABS: Alkaline Phosphatase 346 U/L (40-150); Calc. Creatinine Clearance 0 mL/min (70-130); Estimated GFR-MDRD 81
[2018-07-13 20:06] LABS: BUN (Urea Nitrogen) 12 mg/dL (8.4-25.7)
[2018-07-13 20:07] LABS: AST (SGOT) 32 U/L (5-34)
[2018-07-13 20:08] LABS: ALT (SGPT) 21 U/L (8-55); Lipase 8 U/L (8-78)
[2018-07-13 20:14] LABS: CK (CPK) 28 U/L (30-200)
--- NOTE | 2018-07-13 23:26 | RAD ---
FRONTAL RADIOGRAPH CHEST 07/13/18 COMPARISON: 06/23/18. HISTORY: Weakness. FINDINGS: Heart and mediastinal contours are stable. No pneumothorax, pleural fluid, focal consolidation or darrel eolar edema. Stable prominence of the cardiac silhouette. IMPRESSION: No acute findings. POS: [facility]
[2018-07-13 23:32] LABS: Hemoglobin 9.1 g/dL (14.0-18.0); Mean Corpuscular HGB CONC 30.9 g/dL (32.0-36.0); Mean Corpuscular Hemoglobin 31.2 pg (27.0-31.0); Mean Platelet Volume 6.4 fL (7.4-10.4); Platelet Count 388 thou/uL (130-400); RBC Distribution Width 21.7 % (11.5-14.5); Red Blood Cell (RBC) Count 2.91 mill/uL (4.70-6.10); White Blood Cell (WBC) Count 8.7 thou/uL (4.8-10.8)
[2018-07-13 23:49] LABS: Anisocytosis SLIGHT = 6-15 cells (100X) (0-5/hpf); Band 6 % (5-11); Eosinophils 1 % (0-10); Hypochromia SLIGHT = 6-15 cells (100X) (0-5/hpf); Lymphocytes 23 % (21-51); MDiff Complete? YES; Monocytes 15 % (0-10); Neutrophil 55 % (42-75)
--- NOTE | 2018-07-14 00:01 | CT ---
CT ABDOMEN AND PELVIS 07/13/18 COMPARISON: 05/19/12 HISTORY: Weakness with nausea, vomiting and diarrhea. TECHNIQUE: Axial CT imaging is obtained at 5 mm intervals from lung bases through pubic symphysis without contra st. Coronal reformatted imaging obtained. FINDINGS: There is atherosclerotic calcification of the coronary arteries. Evaluation of the viscera, bowel, va scular structures and for lymphadenopathy is limited without contrast media. The imaged lung bases are unremarkable. No free intraperitoneal air is noted. Gallbladder is surgically absent. The liver, spleen, pancreas, adrenal glands are unremarkable. The kidneys are markedly atrophic. Ther e are numerous cysts associated with the right kidney measuring up to 4.8 cm, stable when compared to prior imaging. There is a renal transplant in the right lower quadrant, stable as well. There are nu merous postoperative clips within the pelvis. There is sigmoid diverticulosis without evidence for diverticulitis. No bowel inflammatory change or evidence of bowel obstruction. Small hiatal hernia noted. There is scattered atherosclerotic calcification of the abdominal aorta and the pelvic arterial branc hes. The bones demonstrate extensive abnormal sclerosis with mottled areas of lytic change noted. This is consistent with extensive osseous metastatic disease. There is multilevel degenerative change noted within the lumbar spine as well. IMPRESSION: Numerous chronic findings as detailed above. No evidence for free intraperitoneal air or small bowel obstruction. POS: [facility]
--- NOTE | 2018-07-14 00:29 | PDOC.FPRHP ---
- History of Present Illness Chief Complaint: AMS History of Present Illness: 68 yo M presents from [place] with for 3 day history nausea/vomiting/ diarrhea with associated weakness and worsening altered mental status. Notes patient was doing really well with therapy. Was able to transfer with assist, typically got around with wheelchair but was working with walker with PT. Started to decline 3 days ago, dropping utensils. Says stool studies were sent Thursday, but have not received results yet. Patient follows commands. ED Course: 1L NS - Allergies/Adverse Reactions Allergies Allergy/AdvReac Type Severity Reaction Status Date / Time Latex, Natural Rubber Allergy Verified 07/14/18 18:42 morphine Allergy Verified 07/14/18 18:42 NSAIDS (Non-Steroidal Allergy Verified 07/14/18 18:42 Anti-Inflamma Penicillins Allergy Severe Verified 07/14/18 18:42 Hives povidone-iodine Allergy Rash Verified 07/14/18 18:42 [From Betadine] shellfish derived Allergy Verified 07/14/18 18:42 Tetracyclines Allergy Verified 07/14/18 18:42 lisinopril AdvReac Mild COUGHING Verified 07/14/18 18:42 - Home Medications Medication Instructions Recorded Confirmed Type Amitriptyline HCl [Elavil] 20 mg PO HS 02/18/15 07/14/18 History Aspirin [Aspirin EC] 325 mg PO DAILY 02/18/15 07/14/18 History Atorvastatin Calcium [Lipitor] 10 mg PO DAILY 02/18/15 07/14/18 History Calcitriol 0.25 mcg PO DAILY 02/18/15 07/14/18 History Cetirizine HCl [Zyrtec] 10 mg PO DAILY 02/18/15 07/14/18 History Metoprolol Succinate [Toprol XL] 1 tab PO BID 02/18/15 07/14/18 History Mycophenolate Mofetil 500 mg PO BID 02/18/15 07/14/18 History Tacrolimus 1 mg PO BID 02/18/15 07/14/18 History amLODIPine Besylate [Norvasc] 2.5 mg PO DAILY 02/18/15 07/14/18 History Allopurinol 3 tab PO DAILY 05/09/15 07/14/18 History Bumetanide [Bumex] 1 tab PO DAILY 10/14/16 07/14/18 History Gabapentin 0.5 tab PO QAM 10/14/16 07/14/18 History Montelukast Sodium [Singulair] 10 mg PO QAM 10/14/16 07/14/18 History Abiraterone Acetate [Zytiga] 1,000 mg PO DAILY 04/25/18 07/14/18 History Colchicine [Colcrys] 0.6 mg PO BID 04/25/18 07/14/18 History Docusate [Colace] 100 mg PO BID 04/25/18 07/14/18 History Gabapentin 900 mg PO QPM 04/25/18 07/14/18 History HYDROcodone/Acetaminophen [[place] 1 each PO Q6H PRN 04/25/18 07/14/18 History 10-325 Tablet] Ondansetron HCl [Zofran] 8 mg PO Q8H PRN 05/18/18 07/14/18 History Polyethylene Glycol 3350 [Miralax] 17 gm PO DAILY PRN 05/18/18 07/14/18 History Acetaminophen [Tylenol Regular 650 mg PO Q4H PRN tab 06/03/18 07/14/18 Rx Strength] Calcium Carbonate [Tums] 1,000 mg PO BID tab 06/03/18 07/14/18 Rx Digoxin [Lanoxin] 0.125 mg PO DAILY tab 06/03/18 07/14/18 Rx Diltiazem HCl [Cardizem CD] 240 mg PO DAILY cap 06/03/18 07/14/18 Rx Magnesium Oxide 400 mg PO BID tab 06/03/18 07/14/18 Rx Phosphorus/Electrolyte Suppl 1 pkt PO QAM pack 06/03/18 07/14/18 Rx [Phos-NaK] Insulin Lispro [Humalog Kwikpen 100 unit SQ DAILY-AC PRN 06/23/18 07/14/18 History U-100] Loperamide HCl [Imodium A-D] 2 mg PO Q4HR PRN 06/23/18 07/14/18 History Pantoprazole Sodium [Protonix] 20 mg PO DAILY 06/23/18 07/14/18 History traZODone HCl [Trazodone HCl] 100 mg PO QPM 06/23/18 07/14/18 History Hydrocortisone [Cortef] 5 mg PO HS 30 Days #30 tab 06/29/18 07/14/18 Rx Hydrocortisone [Cortef] 10 mg PO QAM 30 Days #30 tab 06/29/18 07/14/18 Rx Amlodipine [Norvasc] 10 mg PO DAILY 30 Days #30 tab 07/01/18 07/14/18 Rx Insulin Glargine [Lantus Vial] 25 units SC HS 30 Days #1 vial 07/01/18 07/14/18 Rx Phenytoin Sodium Extended 100 mg PO BID 30 Days #60 cap 07/01/18 07/14/18 Rx [Dilantin ER] Insulin Glargine [Lantus Vial] 35 units SC QAM 30 Days #1 vial 07/02/18 Rx - History PMHx: IDDM2, adrenal insufficiency, CKD s/p kidney transplant on immunosuppression, HLD, COPD, JUDI, HTN, GERD, gout, metastatic prostate cancer, seizure disorder, HFpEF, neuropathy PSHx: kidney transplant, hernia x3, cholecystectomy FHx: RI in mother, DM2 Social: No current tobacco, alcohol, drug use. - Review of Systems ROS unobtainable: due to mental status - Vital signs BP: 100/61 HR: 67 RR: 18 Tmax: 98.7 Pox: 100% on RA Wt: 95 kg - Physical Exam Constitutional: NAD (follows to commands, mumbles, does not answer questions, not saying comprehensible words) HEENT: normocephalic and atraumatic, PERRLA, oropharynx clear, other (mucus membranes dry) Heart: RRR, normal S1/S2 (difficult to ausculate d/t body habitus), pulses present Lungs: CTAB, no respiratory distress Abdomen: soft, non-tender, bowel sounds present, no masses/distention Musculoskeletal: normal structure, normal tone Skin: no rash/lesions, capillary refill <2 seconds, other (chronic venous stasis changes) Heme/Lymphatic: no unusual bruising or bleeding FMR H&P: Results - Labs Result Diagrams: 07/15/18 05:04 07/15/18 05:04 Lab results: WBC 8.7 thou/uL (4.8-10.8) 07/13/18 23:14 Hgb 9.1 g/dL (14.0-18.0) L 07/13/18 23:14 Hct 29.4 % (42.0-52.0) L 07/13/18 23:14 MCV 101.0 fL (78.0-98.0) H 07/13/18 23:14 Plt Count 388 thou/uL (130-400) 07/13/18 23:14 Band Neuts % (Manual) 6 % (5-11) 07/13/18 23:14 Sodium 125 mmol/L (136-145) L 07/13/18 19:46 Potassium 5.0 mmol/L (3.5-5.1) 07/13/18 19:46 Chloride 94 mmol/L (98-107) L 07/13/18 19:46 Carbon Dioxide 21 mmol/L (23-31) L 07/13/18 19:46 BUN 12 mg/dL (8.4-25.7) 07/13/18 19:46 Creatinine 1.09 mg/dL (0.7-1.3) 07/13/18 19:46 Glucose 189 mg/dL (80-115) H 07/13/18 19:46 Lactic Acid 1.7 mmol/L (0.5-2.2) 07/13/18 23:14 Calcium 7.7 mg/dL (7.8-10.44) L 07/13/18 19:46 Total Bilirubin 0.5 mg/dL (0.2-1.2) 07/13/18 19:46 AST 32 U/L (5-34) 07/13/18 19:46 ALT 21 U/L (8-55) 07/13/18 19:46 Alkaline Phosphatase 346 U/L (40-150) H 07/13/18 19:46 Creatine Kinase 28 U/L (30-200) L 07/13/18 19:46 B-Natriuretic Peptide 60.2 pg/mL (0-100) 07/13/18 23:14 Serum Total Protein 5.0 g/dL (5.8-8.1) L 07/13/18 19:46 Albumin 3.0 g/dL (3.4-4.8) L 07/13/18 19:46 Lipase 8 U/L (8-78) 07/13/18 19:46 FMR H&P: A/P - Problem List (1) Altered mental status Current Visit: Yes Status: Acute Code(s): R41.82 - ALTERED MENTAL STATUS, UNSPECIFIED (2) Viral gastroenteritis Current Visit: Yes Status: Acute Code(s): A08.4 - VIRAL INTESTINAL INFECTION , UNSPECIFIED (3) Hyponatremia Current Visit: Yes Status: Acute Code(s): E87.1 - HYPO-OSMOLALITY AND HYPONATREMIA (4) Seizures Current Visit: No Status: Acute Code(s): R56.9 - UNSPECIFIED CONVULSIONS (5) CKD (chronic kidney disease) stage 3, GFR 30-59 ml/min Current Visit: No Status: Chronic (6) GERD (gastroesophageal reflux disease) Current Visit: No Status: Chronic Code(s): K21.9 - GASTRO-ESOPHAGEAL REFLUX DISEASE WITHOUT ESOPHAGITIS (7) Hx of kidney transplant Current Visit: No Status: Chronic (8) Hyperlipidemia Current Visit: No Status: Chronic Code(s): E78.5 - HYPERLIPIDEMIA, UNSPECIFIED (9) IDDM (insulin dependent diabetes mellitus) Current Visit: No Status: Chronic Code(s): E11.9 - TYPE 2 DIABETES MELLITUS WITHOUT COMPLICATIONS; Z79.4 - LAB MANAGER (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 OF INSULIN (10) Normocytic anemia Current Visit: No Status: Chronic Code(s): D64.9 - ANEMIA, UNSPECIFIED (11) JUDI on CPAP Current Visit: No Status: Chronic Code(s): G47.33 - OBSTRUCTIVE SLEEP APNEA (ADULT) (PEDIATRIC) (12) Adrenal insufficiency Current Visit: No Status: Suspected Code(s): E27.40 - UNSPECIFIED ADRENOCORTICAL INSUFFICIENCY - Plan AMS, likely 2/2 viral gastroenteritis with hyponatremia - recent head CT negative - notes pt has been able to take all home medications to her knowledge - clinical picture most consistent with viral gastroenteritis with associated hypovolemic hyponatremia. - had period of low BP, MAP 55 in ED in addition to need for IV access, L femoral line placed - hold home bumex tonight Moderate hyponatremia - likely 2/2 hypovolemia, improved with IVF. SIADH also in differential. - unable to get urine studies as IVF already given in ED - continue to monitor sodium, goal increase of 8 per 24 hrs - 125->128 - plan to continue IVF, recheck BMP, and adjust plan as necessary Adrenal insufficiency - continue home hydrocortisone when med rec complete CKD s/p kidney transplant - continue home tacrolimus, mycophenolate mofetil, zytiga HTN - continue home amlodipine, metoprolol, diltiazem, digoxin when confirmed HFpEF - Echo 04/2018 showed EF 60-65%, 1/3 diastolic dysfunction IDDM2 - achs accuchecks, mild SSI - continue home insulin Seizure disorder - dilantin level supratherapeutic, 21.8. Noted to have dilantin toxicity on previous admission - will hold dose, then recheck level and consider decreasing dose. GERD - continue home protonix Gout - continue home allopurinol HLD - continue home lipitor Neuropathy - continue home amitriptyline, gabapentin Ppx: lovenox Diet: CC, HH Dispo: admit to inpatient IMCU FMR H&P: Upper Level - Pertinent history 68 y/o M w/ PMHx of prostate cancer presents for 3 day hx of worsening altered mentation associated w/ N/V/D. Reportedly norovirus is going around his NH and it was felt to be secondary to this. Pt w/ frequent hospitalizations over the past few months for similar complaints. Reports decreased PO intake, but normal UOP and stooling normally. No fevers. For further details of hx refer to internet marketing coordinator note. - Pertinent findings NA - 125 Cl - 94 CO2 - 21 Gluc - 189 WBC - 8.7 CT-AB - no SBO, no free air. lytic bone lesions concerning for metastatic disease CXR - NAD GEN: Somnelent, but folling directions CARD: Distant heart sounds, no overt murmur GI: mild distention w/ tinkling noted PULM: Distant breath sounds, no overt wheezing or rhonci - Plan Date/Time: 07/14/18 0029 [email or web address]. Jimmy Dial MD, have evaluated this patient and agree with findings/plan as outlined by internet marketing coordinator resident. Pertinent changes/additions are listed here. 68 y/o M w/: 1) Altered Mental Status likely 2/2 Viral Gastroenteritis w/ hypovolemic hyponatrermia - Recent Head CT negative for metastatic disease - Pt w/ GI sxs consistent w/ gastroeneteritis - Doubt stroke w/ patient moving limbs equally and following commands - Possibly 2/2 hyponatremia, but would be unusual as it is a mild decrease from baseline - Will repeat BMP to eval sodium level s/p 1L IVF given in ER [facility]ol increase of Na of 8-10 within the first 24 hours - Unable to obtain urine studies as patient has already received IVF in the ER - Pt did have transient low BP prompting central line placement in the ER w/ MAP <65. Will admit to the IMCU for close monitoring 2) Likely Hypovolemic Hyponatremia - As noted above. Continued IVF and repeat BMP s/p IV bolus in ER w/ goal increase 8-10 in the first 24 hours - Unable to obtain reliable urine studies 2/2 pt receiving IVF in the ER - If pt's sxs worsen, will consider SIADH as possible cause in patient w/ known metastatic prostate cancer. However, as he has not had issues with this in the past, hypovolemic hyponatremia is more likey given his GI sxs and associated low chloride and bicarb 3) Supratherapeutic dilantin level - Pt w/ hx of dilantin toxicity in the past. Levels mildly above therapeutic levels, but not in toxic rage of >30 at this time - Will hold next dose of dilantin and repeat level. Will consider decreasing daily dose of dilantin when levels drop to normal range 4) Other chronic problems per internet marketing coordinator note Assessment and Plan discussed w/ Dr. Yi who is in agreement. Addendum - Attending - Attending Attestation Date/Time: 07/13/18 6000 I personally evaluated the patient and discussed the management with Dr. Moreno and Dr. Dial I agree with the History, Examination, Assessment and Plan documented above with any addition or exceptions noted below. 68 yo male with multiple medical conditions including metastatic prostate cancer presents to ER with AMS. Patient has N/V/D over the past 3 days. Recent outbreak at correction. Poor intake per . Increasing altered throughout the day. Denies fever or chills. Stool studies collected at [place]. VS reviewed. Labs reviewed. Imaging reviewed. PE repeated and agree with above. 1. Metabolic encephalopathy: Multiple etiologies. Correct electrolyte abnormalities. Add stress dose steroids. Hold dilantin level. Monitor closely. Imaging of head needed. 2. Moderate hyponatriemia: Last normal value noted on 07/02/18. Likely multi- factorial. Will order serum and urine studies along with osmol. Presumed hypovolemic hyponatriemic at present and will treat with NS replacement. Monitor increase. Keep around 8 mEq in first 24. Switch to 3% as needed. Trend labs q 4. If need to give 3% trend q 1 to 2. 3. Severe dehydration: Map down to 55 in ER during evaluation. Prior to this was WNL. Central line placed. 1L bolus given. Improved. Will place in IMCu overnight incase pressor support needed. Rule out sepsis. CT abdomen/pelvis reviewed. No white count. Likely GI fluid loss. 4. Hypovolemia with brief hypotension: Multi-factorial. Rule out sepsis. Labs pending (lactic acid and procal). Continue IFVs. Monitor closely. Give stress dose steroids via IV. 5. Viral gastroenteritis: Stool studies repeat. Hold antidiarrheals until studies returned. Request stool studies from [place]. Continue IVF hydration. PO as tolerated. Treat N/V and pain. 6. Adrenal insufficiency: Monitor and correct electrolytes. Stress dose steroids at least 3 days. May discuss with endo. 7. CKD s/p renal transplant: Monitor. On immuno suppressive agents. Risk. 8. Seizure d/o with elevated dilantin level: Hold meds. Need to decrease dose. Has occurred multiple times. Adjust other home meds based on chronic conditions. Michael
[2018-07-14 01:21] LABS: Bilirubin Negative (Negative); Blood, Urine Negative (Negative); Clarity CLEAR (Clear); Glucose, Urine (Dipstick) Negative (Negative); Leukocyte Negative (Negative); Nitrite Negative (Negative); Protein, Urine (Dipstick) Negative (Neg-Trace); Specific Gravity, Urine 1.011 (1.002-1.036); Urobilinogen 0.2 mg/dL (0.2-1.0); pH, Urine 5.5 (5.0-9.0)
[2018-07-14] MEDS ORDERED: Dextrose 5% in Water 1,000 ML IV PRN (02:14)
[2018-07-14] MEDS ORDERED: Sodium Chloride 0.9% 1,000 ML IV SCH ×2 (02:14→03:02)
[2018-07-14] MEDS ORDERED: Dextrose 50% Abboject 50 ML SYRINGE SLOW IVP PRN (02:14)
[2018-07-14 02:18] LABS: Anion Gap 13 mmol/L (10-20); BUN (Urea Nitrogen) 13 mg/dL (8.4-25.7); Calc. Creatinine Clearance 0 mL/min (70-130); Calcium 7.4 mg/dL (7.8-10.44); Carbon Dioxide 21 mmol/L (23-31); Chloride 98 mmol/L (98-107); Estimated GFR-MDRD 90; Glucose 129 mg/dL (80-115); Potassium 4.3 mmol/L (3.5-5.1); Sodium 128 mmol/L (136-145)
[2018-07-14 04:13] LABS: Hemoglobin 8.3 g/dL (14.0-18.0); Mean Corpuscular HGB CONC 31.4 g/dL (32.0-36.0); Mean Corpuscular Hemoglobin 31.9 pg (27.0-31.0); Mean Platelet Volume 6.2 fL (7.4-10.4); Platelet Count 329 thou/uL (130-400); RBC Distribution Width 21.4 % (11.5-14.5); Red Blood Cell (RBC) Count 2.61 mill/uL (4.70-6.10); White Blood Cell (WBC) Count 6.8 thou/uL (4.8-10.8)
[2018-07-14 04:33] LABS: Anion Gap 13 mmol/L (10-20); BUN (Urea Nitrogen) 12 mg/dL (8.4-25.7); Calc. Creatinine Clearance 0 mL/min (70-130); Calcium 7.2 mg/dL (7.8-10.44); Carbon Dioxide 19 mmol/L (23-31); Chloride 98 mmol/L (98-107); Estimated GFR-MDRD Greater than 90; Glucose 170 mg/dL (80-115); Potassium 4.3 mmol/L (3.5-5.1); Sodium 126 mmol/L (136-145)
[2018-07-14 04:41] LABS: Anisocytosis SLIGHT = 6-15 cells (100X) (0-5/hpf); Band 3 % (5-11); Eosinophils 2 % (0-10); Lymphocytes 23 % (21-51); MDiff Complete? YES; Monocytes 15 % (0-10); Neutrophil 57 % (42-75)
--- NOTE | 2018-07-14 05:43 | PDOC.FM ---
- Subjective Subjective: NAEO. Further ROS unobtainable due to patient mental status. Per family, patient has been more conversant and aware as compared to the last 2 days. - Objective MAR Reviewed: Yes Result Diagrams: 07/14/18 04:01 07/14/18 04:01 Phys Exam - Physical Examination Constitutional: NAD HEENT: PERRLA, moist MMs, sclera anicteric Neck: supple, full ROM Respiratory: clear to auscultation bilateral Cardiovascular: RRR Gastrointestinal: soft, non-tender, no distention, positive bowel sounds Musculoskeletal: no edema Neurological: non-focal Deviation from normal: lethargic, arousabale, incomprehensible sounds Dx/Plan (1) Altered mental status Code(s): R41.82 - ALTERED MENTAL STATUS, UNSPECIFIED Status: Acute (2) Hyponatremia Code(s): E87.1 - HYPO-OSMOLALITY AND HYPONATREMIA Status: Acute (3) Viral gastroenteritis Code(s): A08.4 - VIRAL INTESTINAL INFECTION, UNSPECIFIED Status: Acute (4) Acute encephalopathy Code(s): G93.40 - ENCEPHALOPATHY, UNSPECIFIED Status: Acute (5) Seizures Code(s): R56.9 - UNSPECIFIED CONVULSIONS Status: Acute (6) Adrenal insufficiency Code(s): E27.40 - UNSPECIFIED ADRENOCORTICAL INSUFFICIENCY Status: Chronic (7) CAD (coronary artery disease) Code(s): I25.10 - ATHSCL HEART DISEASE OF [place] CORONARY ARTERY W/O ANG PCTRS Status: Chronic Qualifiers: Coronary Disease-Associated Artery/Lesion type: [place] artery Associated angina: without angina (8) CKD (chronic kidney disease) stage 3, GFR 30-59 ml/min Status: Chronic (9) COPD (chronic obstructive pulmonary disease) Status: Chronic Qualifiers: COPD type: COPD with acute exacerbation Qualified Code(s): J44.1 - Chronic obstructive pulmonary disease with (acute) exacerbation (10) GERD (gastroesophageal reflux disease) Code(s): K21.9 - GASTRO-ESOPHAGEAL REFLUX DISEASE WITHOUT ESOPHAGITIS Status: Chronic (11) Hx of kidney transplant Status: Chronic (12) Hyperlipidemia Code(s): E78.5 - HYPERLIPIDEMIA, UNSPECIFIED Status: Chronic (13) Morbid obesity with BMI of 40.0-44.9, adult Code(s): E66.01 - MORBID (SEVERE) OBESITY DUE TO EXCESS CALORIES; Z68.41 - BODY MASS INDEX (BMI) 40.0-44.9, ADULT Status: Chronic (14) JUDI on CPAP Code(s): G47.33 - OBSTRUCTIVE SLEEP APNEA (ADULT) (PEDIATRIC) Status: Chronic (15) Prostate cancer Code(s): C61 - MALIGNANT NEOPLASM OF PROSTATE Status: Chronic - Plan Plan: AMS, likely 2/2 viral gastroenteritis with hyponatremia clinical picture most consistent with viral gastroenteritis with associated hypovolemic hyponatremia. - recent head CT negative - notes pt has been able to take all home medications to her knowledge - had period of low BP, MAP 55 in ED in addition to need for IV access, L femoral line placed; BP stabilized for now - hold home bumex tonight Moderate hyponatremia likely 2/2 hypovolemia, improved with IVF. SIADH also in differential. - unable to get urine studies as IVF already given in ED - continue to monitor sodium, goal increase of 8 per 24 hrs - 125->128 - plan to continue IVF, recheck BMP, and adjust plan as necessary Adrenal insufficiency - continue home hydrocortisone when med rec complete - Will give loading dose of steroids 3x home dose CKD s/p kidney transplant - continue home tacrolimus, mycophenolate mofetil, zytiga HTN - continue home amlodipine, metoprolol, diltiazem, digoxin when confirmed HFpEF, present on admission - Echo 04/2018 showed EF 60-65%, 1/3 diastolic dysfunction IDDM2 - achs accuchecks, mild SSI - continue home insulin Seizure disorder - dilantin level supratherapeutic, 21.8. Noted to have dilantin toxicity on previous admission - will hold dose, then recheck level and consider decreasing dose. GERD - continue home protonix Gout - continue home allopurinol HLD - continue home lipitor Neuropathy - continue home amitriptyline, gabapentin Ppx: lovenox Diet: CC, HH Dispo: monitor in IMCU, downgrade if pressures stable Addendum - Attending - Attending Attestation Date/Time: 07/14/18 5509 I personally evaluated the patient and discussed the management with Dr. Wilkins I agree with the History, Examination, Assessment and Plan documented above with any addition or exceptions noted below. Metabolic encephalopaty secondary to hypontremic hyponatremia secondary to dehydration from acute viral gastroenteritis- IVF and trend Na levels. F/U on stool studies done at [facility]. Dilantin supratherapeutic- will hold dilatin today an restart at lower dose. Adrenal insufficiency- stress dose steroids.
[2018-07-14] MEDS ORDERED: Hydrocortisone 10 mg Tablet PO SCH ×4 (09:00→21:00)
[2018-07-14] MEDS ORDERED: Enoxaparin Sodium 40 MG/0.4 ML SYRINGE ONE (11:47)
[2018-07-14] MEDS ORDERED: traMADol HCl 50 MG TAB ONE (11:47)
[2018-07-14] MEDS: traMADol HCl 50 MG TAB PO PRN ×2 (12:00→20:30)
[2018-07-14] MEDS: Enoxaparin Sodium 40 MG/0.4 ML SYRINGE SC SCH (12:04)
[2018-07-14] MEDS ORDERED: Hydrocortisone Sod Succ/PF 100 mg/2 ml Vial IVP SCH (12:30)
[2018-07-14] MEDS ORDERED: Ondansetron ODT 8 MG TAB ONE (12:47)
[2018-07-14] MEDS: Ondansetron ODT 8 MG TAB SL PRN (12:54)
[2018-07-14] MEDS ORDERED: Hydrocortisone Sod Succ/PF 100 mg/2 ml Vial ONE (14:49)
[2018-07-14] MEDS ORDERED: Acetaminophen 325 MG TAB ONE (15:04)
[2018-07-14] MEDS: Acetaminophen 325 MG TAB PO PRN (15:08)
[2018-07-14] MEDS: Sodium Chloride 0.9% 1,000 ML IV SCH ×3 (16:31→23:04)
[2018-07-14 18:48] LABS: Anion Gap 13 mmol/L (10-20); BUN (Urea Nitrogen) 11 mg/dL (8.4-25.7); Calc. Creatinine Clearance 122 mL/min (70-130); Calcium 7.1 mg/dL (7.8-10.44); Carbon Dioxide 19 mmol/L (23-31); Chloride 99 mmol/L (98-107); Estimated GFR-MDRD Greater than 90; Glucose 175 mg/dL (80-115); Potassium 4.7 mmol/L (3.5-5.1); Sodium 126 mmol/L (136-145)
[2018-07-14] MEDS: Hydrocortisone Sod Succ/PF 100 mg/2 ml Vial IVP SCH (20:29)
[2018-07-14] MEDS: Ondansetron ODT 4 MG TAB PO PRN (21:39)
[2018-07-14] MEDS ORDERED: Acetaminophen 1,000 MG in Premix Bag 1 BAG IVPB SCH (22:45)
--- NOTE | 2018-07-14 23:56 | ULT ---
BILATERAL LOWER EXTREMITY VENOUS DOPPLER ULTRASOUND 07/14/18 COMPARISON: None. HISTORY: Bilateral lower extremity pain, assess for DVT. TECHNIQUE: Multiplanar chong scale sonographic imaging of the venous structures bilateral lower extremities [place]rent with color flow and spectral analysis. FINDINGS: Bilateral common femoral veins, greater saphenous veins, profunda femoral veins, femoral veins, popli teal veins and posterior tibial veins are patent. Normal blood flow, augmentation and compression wit hin the deep venous system bilaterally. No evidence for DVT on either side. IMPRESSION: No evidence for deep venous thrombosis of either lower extremity. POS: KATHY
[2018-07-15 06:07] LABS: #Lymphocytes 1.5 thou/uL (1.20-3.40); #Monocytes 0.8 thou/uL (0.11-0.59); #Neutrophils 4.6 thou/uL (1.40-6.50); %Basophils 0.5 % (0.0-1.0); %Eosinophils 0.1 % (0.0-10.0); %Lymphocytes 21.4 % (21.0-51.0); %Monocytes 11.9 % (0.0-10.0); %Neutrophils 66.1 % (42.0-75.0); Hemoglobin 7.7 g/dL (14.0-18.0); Mean Corpuscular HGB CONC 31.3 g/dL (32.0-36.0); Mean Corpuscular Hemoglobin 31.5 pg (27.0-31.0); Mean Platelet Volume 6.4 fL (7.4-10.4); Platelet Count 333 thou/uL (130-400); RBC Distribution Width 21.2 % (11.5-14.5); Red Blood Cell (RBC) Count 2.45 mill/uL (4.70-6.10); White Blood Cell (WBC) Count 6.9 thou/uL (4.8-10.8)
--- NOTE | 2018-07-15 06:09 | PDOC.FM ---
- Subjective Subjective: NAEO. Patient is able to converse better today. Able to answer questions appropriately and is slightly lethargic. Denies chest pain, SOB, abdominal pain , NVD. - Objective MAR Reviewed: Yes Vital Signs & Weight: Vital Signs (12 hours) Temp Pulse Resp BP Pulse Ox 07/15/18 04:00 98.3 F 95 16 107/57 L 100 07/14/18 20:00 97 Weight Weight 110.223 kg Result Diagrams: 07/15/18 05:04 07/15/18 05:04 Phys Exam - Physical Examination Constitutional: NAD HEENT: PERRLA, moist MMs, sclera anicteric Neck: supple, full ROM Respiratory: clear to auscultation bilateral Cardiovascular: RRR Gastrointestinal: soft, non-tender, no distention, positive bowel sounds Musculoskeletal: no edema Neurological: non-focal Deviation from normal: AXOX1; some comprehensible and incomprehensible sounds Dx/Plan (1) Altered mental status Code(s): R41.82 - ALTERED MENTAL STATUS, UNSPECIFIED Status: Acute (2) Hyponatremia Code(s): E87.1 - HYPO-OSMOLALITY AND HYPONATREMIA Status: Acute (3) Viral gastroenteritis Code(s): A08.4 - VIRAL INTESTINAL INFECTION, UNSPECIFIED Status: Acute (4) Acute encephalopathy Code(s): G93.40 - ENCEPHALOPATHY, UNSPECIFIED Status: Acute (5) Seizures Code(s): R56.9 - UNSPECIFIED CONVULSIONS Status: Acute (6) Adrenal insufficiency Code(s): E27.40 - UNSPECIFIED ADRENOCORTICAL INSUFFICIENCY Status: Chronic (7) CAD (coronary artery disease) Code(s): I25.10 - ATHSCL HEART DISEASE OF [place] CORONARY ARTERY W/O ANG PCTRS Status: Chronic Qualifiers: Coronary Disease-Associated Artery/Lesion type: [place] artery Associated angina: without angina (8) CKD (chronic kidney disease) stage 3, GFR 30-59 ml/min Status: Chronic (9) COPD (chronic obstructive pulmonary disease) Status: Chronic Qualifiers: COPD type: COPD with acute exacerbation Qualified Code(s): J44.1 - Chronic obstructive pulmonary disease with (acute) exacerbation (10) GERD (gastroesophageal reflux disease) Code(s): K21.9 - GASTRO-ESOPHAGEAL REFLUX DISEASE WITHOUT ESOPHAGITIS Status: Chronic (11) Hx of kidney transplant Status: Chronic (12) Hyperlipidemia Code(s): E78.5 - HYPERLIPIDEMIA, UNSPECIFIED Status: Chronic (13) Morbid obesity with BMI of 40.0-44.9, adult Code(s): E66.01 - MORBID (SEVERE) OBESITY DUE TO EXCESS CALORIES; Z68.41 - BODY MASS INDEX (BMI) 40.0-44.9, ADULT Status: Chronic (14) JUDI on CPAP Code(s): G47.33 - OBSTRUCTIVE SLEEP APNEA (ADULT) (PEDIATRIC) Status: Chronic (15) Prostate cancer Code(s): C61 - MALIGNANT NEOPLASM OF PROSTATE Status: Chronic - Plan Plan: AMS, likely 2/2 viral gastroenteritis with hyponatremia clinical picture most consistent with viral gastroenteritis with associated hypovolemic hyponatremia. - recent head CT negative - had period of low BP, MAP 55 in ED in addition to need for IV access, L femoral line placed; BP stabilized for now - hold home bumex for now - blood cx showing 1/2 gram + enterococcus - likely contaminant, no abx for now. Procal 0.16. Moderate hyponatremia likely 2/2 hypovolemia, improved with IVF. SIADH also in differential. - unable to get urine studies as IVF already given in ED - continue to monitor sodium, goal increase of 8 per 24 hrs - 125->128 ->127 - plan to continue IVF, recheck BMP, and adjust plan as necessary Adrenal insufficiency - continue home hydrocortisone when med rec complete - Will give loading dose of steroids 3x home dose for 3 days CKD s/p kidney transplant - continue home tacrolimus, mycophenolate mofetil, zytiga HTN - continue home amlodipine, metoprolol, diltiazem, digoxin when confirmed HFpEF, present on admission - Echo 04/2018 showed EF 60-65%, 1/3 diastolic dysfunction IDDM2 - achs accuchecks, mild SSI - continue home insulin Seizure disorder - dilantin level supratherapeutic, 21.8. Noted to have dilantin toxicity on previous admission - will hold dose, then recheck level and consider decreasing dose GERD - continue home protonix Gout - continue home allopurinol HLD - continue home lipitor Neuropathy - continue home amitriptyline, gabapentin Ppx: lovenox Diet: CC, HH Dispo: monitor on telemetry, dispo in 2-3 days Addendum - Attending - Attending Attestation Date/Time: 07/15/18 4221 I personally evaluated the patient and discussed the management with Dr. Wilkins. I agree with the History, Examination, Assessment and Plan documented above with any addition or exceptions noted below. Patient is A&O x3 this morning and near his baseline. No focal deficits Metabolic encephalopathy-resolved Dehydration and hypovolemic hyponatremia from gastroenteritis-continue IVF and await stool studies. Dilantin supratherapeutic- continue to hold and recheck level prior to discharge adrenal insufficiency- continue 3 days of stress dose steroids 1/2 enterococcus blood culture positive- from central line immediately after placement. Will get a peripheral IV and no longer needs central access. Do a repeat blood culture from periphery as well as from the line and then pull the line and culture the tip to ensure no active infection. No abx at this time
[2018-07-15] MEDS: Ondansetron ODT 4 MG TAB PO PRN ×2 (06:20→17:14)
[2018-07-15] MEDS: Sodium Chloride 0.9% 1,000 ML IV SCH ×4 (06:21→23:08)
[2018-07-15 06:25] LABS: Anion Gap 11 mmol/L (10-20); BUN (Urea Nitrogen) 13 mg/dL (8.4-25.7); Calc. Creatinine Clearance 128 mL/min (70-130); Carbon Dioxide 19 mmol/L (23-31); Chloride 101 mmol/L (98-107); Estimated GFR-MDRD Greater than 90; Glucose 159 mg/dL (80-115); Potassium 4.4 mmol/L (3.5-5.1); Sodium 127 mmol/L (136-145)
[2018-07-15] MEDS ORDERED: Non-Formulary Item 1 EACH (Pantoprazole Sodium [Protonix] 20 MG) PO SCH (09:00)
[2018-07-15] MEDS ORDERED: ABIRATERONE ACETATE 1000 MG PO SCH (09:00)
[2018-07-15] MEDS ORDERED: MYCOPHENOLATE MOFETIL 500 MG PO SCH (09:00)
[2018-07-15] MEDS ORDERED: Hydrocortisone 10 mg Tablet PO SCH (09:00)
[2018-07-15] MEDS ORDERED: Tacrolimus 0.5 MG CAP PO SCH (09:00)
[2018-07-15] MEDS ORDERED: Allopurinol 100 MG TAB PO SCH (09:00)
[2018-07-15] MEDS: Hydrocortisone Sod Succ/PF 100 mg/2 ml Vial IVP SCH ×2 (09:06→20:50)
[2018-07-15] MEDS: Enoxaparin Sodium 40 MG/0.4 ML SYRINGE SC SCH (09:07)
[2018-07-15] MEDS: Colchicine 0.6 MG TAB PO SCH ×2 (09:08→20:59)
[2018-07-15] MEDS: Pantoprazole 40 MG GRANULES PACKET PO SCH (09:08)
[2018-07-15] MEDS: Allopurinol 300 MG TAB PO SCH (09:08)
[2018-07-15] MEDS: Montelukast Sodium 10 mg Tablet PO SCH (09:08)
[2018-07-15] MEDS: Aspirin 325 mg Enteric Coated Tablet PO SCH (09:08)
[2018-07-15] MEDS: Atorvastatin Calcium 10 MG TAB PO SCH (09:08)
[2018-07-15] MEDS: Mycophenolate 250 MG CAP PO SCH ×2 (10:14→20:57)
[2018-07-15] MEDS: Tacrolimus 1 MG CAP PO SCH ×2 (10:14→20:58)
--- NOTE | 2018-07-15 13:38 | PQF ---
CLINICAL DOCUMENTATION IMPROVEMENT CLARIFICATION FORM: ICD-10 Updated PLEASE DO AN ADDENDUM TO THE PROGRESS NOTE WITH ANY DOCUMENTATION UPDATES OR ADDITIONS AND CARRY THROUGH TO DC SUMMARY. THANK YOU. DATE: 07/15/18 ATTN: DR. CURRIE Please exercise your independent, professional judgment in responding to the clarification form. Clinical indicators are provided on the bottom of this form for your review Please check appropriate box(s): [X ] Encephalopathy: Type: [ X ] Acute [ ] Subacute [ ] Chronic Etiology: [ ] Hypertensive [ X ] Metabolic [ ] Toxic [ ] Hepatic with Coma [ ] Hepatic w/o Coma [ ] Hypoxic [ ] Septic [ ] Drug induced: [ ] Unspecified [ ] in the setting of underlying dementia [ ] Other (please specify) [ ] Transient Alteration of Awareness [ ] Other diagnosis [ ] Unable to determine In addition, please specify: Present on Admission (POA): [ X ] Yes [ ] No [ ] Unable to determine For continuity of documentation, please document condition throughout progress notes and discharge summary. Thank You. CLINICAL INDICATORS - SIGNS / SYMPTOMS / LABS ER NOTE: " MENTAL STATUS CHANGES" PROGRESS NOTE 07/14: "ACUTE ENCEPHALOPATHY" RISKS: HYPONATREMIA HTN TREATMENT: IV LEVAQUIN (ER) IV VANCOMYCIN (ER) IV FLUIDS (ER-PRESENT) ELECTROLYTE SUPPLEMENT (07/15) (This form is maintained as a part of the permanent medical record) 2014 [employer]. All Rights Reserved [facility]
[2018-07-15] MEDS: HumaLOG 300 UNITS/3 ML VIAL SC PRN (17:11)
[2018-07-15] MEDS: Calcium Carbonate 500 MG ChewTAB PO SCH (20:58)
[2018-07-15] MEDS: Magnesium Oxide 400 MG TAB PO SCH (20:59)
[2018-07-15] MEDS: traZODone HCl 50 MG TAB PO SCH (20:59)
[2018-07-15] MEDS ORDERED: Amitriptyline HCl 10 MG TAB PO SCH (21:00)
[2018-07-15] MEDS ORDERED: Non-Formulary Item 1 EACH (Trazodone Hcl [Trazodone Hcl] 100 MG) PO SCH (21:00)
[2018-07-16 05:45] LABS: #Lymphocytes 1.1 thou/uL (1.20-3.40); #Monocytes 0.5 thou/uL (0.11-0.59); #Neutrophils 2.8 thou/uL (1.40-6.50); %Basophils 0.2 % (0.0-1.0); %Eosinophils 0.6 % (0.0-10.0); %Lymphocytes 25.1 % (21.0-51.0); %Monocytes 11.2 % (0.0-10.0); Hemoglobin 6.6 g/dL (14.0-18.0); Mean Corpuscular HGB CONC 32.2 g/dL (32.0-36.0); Mean Corpuscular Hemoglobin 32.9 pg (27.0-31.0); Mean Platelet Volume 6.4 fL (7.4-10.4); Platelet Count 291 thou/uL (130-400); RBC Distribution Width 21.7 % (11.5-14.5); Red Blood Cell (RBC) Count 2.01 mill/uL (4.70-6.10); White Blood Cell (WBC) Count 4.5 thou/uL (4.8-10.8)
[2018-07-16 06:08] LABS: Anion Gap 11 mmol/L (10-20); BUN (Urea Nitrogen) 10 mg/dL (8.4-25.7); Calc. Creatinine Clearance 162 mL/min (70-130); Calcium 6.6 mg/dL (7.8-10.44); Carbon Dioxide 18 mmol/L (23-31); Chloride 108 mmol/L (98-107); Estimated GFR-MDRD Greater than 90; Glucose 148 mg/dL (80-115); Potassium 3.8 mmol/L (3.5-5.1); Sodium 133 mmol/L (136-145)
--- NOTE | 2018-07-16 06:14 | PDOC.FM ---
- Subjective Subjective: NAEO. Patient responds to questions appropriately. More alert and awake. States he feels good today. Denies pain. - Objective MAR Reviewed: Yes Vital Signs & Weight: Vital Signs (12 hours) Temp Pulse Resp BP Pulse Ox 07/16/18 03:39 98.3 F 91 20 132/63 100 07/15/18 23:47 98.3 F 97 18 118/59 L 97 07/15/18 20:00 98.1 F 104 H 20 105/55 L 98 Weight Weight 110.268 kg I&O: 07/14/18 07/15/18 07/16/18 06:59 06:59 06:59 Intake Total 4025 Output Total 900 Balance 3125 Result Diagrams: 07/16/18 05:21 07/16/18 05:21 Phys Exam - Physical Examination Constitutional: NAD HEENT: PERRLA, moist MMs, sclera anicteric Neck: full ROM Respiratory: clear to auscultation bilateral Cardiovascular: RRR Gastrointestinal: soft, non-tender, no distention, positive bowel sounds Musculoskeletal: no edema Neurological: non-focal, moves all 4 limbs Psychiatric: normal affect Dx/Plan (1) Altered mental status Code(s): R41.82 - ALTERED MENTAL STATUS, UNSPECIFIED Status: Acute (2) Hyponatremia Code(s): E87.1 - HYPO-OSMOLALITY AND HYPONATREMIA Status: Acute (3) Viral gastroenteritis Code(s): A08.4 - VIRAL INTESTINAL INFECTION, UNSPECIFIED Status: Acute (4) Acute encephalopathy Code(s): G93.40 - ENCEPHALOPATHY, UNSPECIFIED Status: Acute (5) Seizures Code(s): R56.9 - UNSPECIFIED CONVULSIONS Status: Acute (6) Adrenal insufficiency Code(s): E27.40 - UNSPECIFIED ADRENOCORTICAL INSUFFICIENCY Status: Chronic (7) CAD (coronary artery disease) Code(s): I25.10 - ATHSCL HEART DISEASE OF [place] CORONARY ARTERY W/O ANG PCTRS Status: Chronic Qualifiers: Coronary Disease-Associated Artery/Lesion type: [place] artery Associated angina: without angina (8) CKD (chronic kidney disease) stage 3, GFR 30-59 ml/min Status: Chronic (9) COPD (chronic obstructive pulmonary disease) Status: Chronic Qualifiers: COPD type: COPD with acute exacerbation Qualified Code(s): J44.1 - Chronic obstructive pulmonary disease with (acute) exacerbation (10) GERD (gastroesophageal reflux disease) Code(s): K21.9 - GASTRO-ESOPHAGEAL REFLUX DISEASE WITHOUT ESOPHAGITIS Status: Chronic (11) Hx of kidney transplant Status: Chronic (12) Hyperlipidemia Code(s): E78.5 - HYPERLIPIDEMIA, UNSPECIFIED Status: Chronic (13) Morbid obesity with BMI of 40.0-44.9, adult Code(s): E66.01 - MORBID (SEVERE) OBESITY DUE TO EXCESS CALORIES; Z68.41 - BODY MASS INDEX (BMI) 40.0-44.9, ADULT Status: Chronic (14) JUDI on CPAP Code(s): G47.33 - OBSTRUCTIVE SLEEP APNEA (ADULT) (PEDIATRIC) Status: Chronic (15) Prostate cancer Code(s): C61 - MALIGNANT NEOPLASM OF PROSTATE Status: Chronic - Plan Plan: AMS, likely 2/2 viral gastroenteritis with hyponatremia, improved clinical picture most consistent with viral gastroenteritis with associated hypovolemic hyponatremia. - recent head CT negative - had period of low BP, MAP 55 in ED in addition to need for IV access, L femoral line placed; BP stable - blood cx showing 1/2 gram + enterococcus from the femoral line - likely contaminant, no abx for now. Procal 0.16. Blood cultures redrawn - 1 from peripheral, 1 from line. Patient got peripheral IV access and femoral central line removed. Cath tip culture drawn as well. These cultures are still pending - no growth to date. Moderate hyponatremia likely 2/2 hypovolemia, improved with IVF. - unable to get urine studies as IVF already given in ED - continue to monitor sodium, goal increase of 8 per 24 hrs - 125->128 ->127 -> 133 - Will d/c fluids and PO hydrate as Na is improving Anemia On admission 9.1, chronically anemia - on 07/16: Hgb 6.6, will transfuse 1unit Adrenal insufficiency - continue home hydrocortisone when med rec complete - Will give loading dose of steroids 3x home dose for 3 days CKD s/p kidney transplant - continue home tacrolimus, mycophenolate mofetil, zytiga HTN - continue home amlodipine, metoprolol, diltiazem, digoxin when confirmed HFpEF, present on admission - Echo 04/2018 showed EF 60-65%, 1/3 diastolic dysfunction IDDM2 - achs accuchecks, mild SSI - continue home insulin Seizure disorder - dilantin level supratherapeutic, 21.8. Noted to have dilantin toxicity on previous admission - will hold dose, then recheck level and consider decreasing dose at a third of current dose GERD - continue home protonix Gout - continue home allopurinol/colchicine HLD - continue home lipitor Neuropathy - continue home amitriptyline, gabapentin Ppx: lovenox Diet: CC, HH Dispo: monitor on telemetry, dispo in 1-2 days Addendum - Attending - Attending Attestation Date/Time: 07/16/18 6927 I personally evaluated the patient and discussed the management with Dr. Wilkins I agree with the History, Examination, Assessment and Plan documented above with any addition or exceptions noted below. Patient improving slowly but still deconditioned and will need continue treatment at SNF for PT. AMS secondary to hyponatremia- resolved hypovolemic hyponatremia-improving with IVF Anemia-macrocytic- most likely combination of chronic disease but folate low earlier this month. Will transfuse 1U PRBCs at Hgb <7 and will start folate replacement Addisons disease- today is day 3 of stress dose steroids- return to normal dosing tomorrow Deconditioning- SNF set up. Expect d/c in the next 1-2 days.
[2018-07-16] MEDS: Sodium Chloride 0.9% 1,000 ML IV SCH (07:20)
[2018-07-16 09:28] LABS: Albumin 1.9 g/dL (3.4-4.8); Dilantin 13.3 ug/mL (10.0-20.0)
[2018-07-16] MEDS: Mycophenolate 250 MG CAP PO SCH ×2 (11:51→21:10)
[2018-07-16] MEDS: Hydrocortisone Sod Succ/PF 100 mg/2 ml Vial IVP SCH (11:52)
[2018-07-16] MEDS: Enoxaparin Sodium 40 MG/0.4 ML SYRINGE SC SCH (11:54)
[2018-07-16] MEDS: Loratadine 10 MG TAB PO SCH (11:55)
[2018-07-16] MEDS: Atorvastatin Calcium 10 MG TAB PO SCH (11:55)
[2018-07-16] MEDS: Calcitriol 0.25 MCG CAP PO SCH (11:55)
[2018-07-16] MEDS: Montelukast Sodium 10 mg Tablet PO SCH (11:55)
[2018-07-16] MEDS: Bumetanide 1 MG TAB PO SCH (11:55)
[2018-07-16] MEDS: Allopurinol 300 MG TAB PO SCH (11:55)
[2018-07-16] MEDS: Magnesium Oxide 400 MG TAB PO SCH ×2 (11:55→21:14)
[2018-07-16] MEDS: Pantoprazole 40 MG GRANULES PACKET PO SCH (11:56)
[2018-07-16] MEDS: Aspirin 325 mg Enteric Coated Tablet PO SCH (11:56)
[2018-07-16] MEDS: Docusate 100 MG CAP PO SCH ×2 (11:56→21:13)
[2018-07-16] MEDS: Tacrolimus 1 MG CAP PO SCH ×2 (11:56→21:11)
[2018-07-16] MEDS: Digoxin 0.125 MG TAB PO SCH (11:57)
[2018-07-16] MEDS: Calcium Carbonate 500 MG ChewTAB PO SCH (13:59)
[2018-07-16] MEDS: Colchicine 0.6 MG TAB PO SCH (13:59)
[2018-07-16] MEDS: traMADol HCl 50 MG TAB PO PRN (14:09)
[2018-07-16] MEDS ORDERED: Hydrocortisone 10 mg Tablet PO SCH (21:00)
[2018-07-16] MEDS: traZODone HCl 50 MG TAB PO SCH (21:13)
--- NOTE | 2018-07-17 06:33 | PDOC.FM ---
- Subjective Subjective: NAEO. Patient states he feels back to his baseline this morning. He states he does have some pain in his feet. He also endorses a cough. Otherwise, denies SOB , chest pain, abdominal pain, LE swelling, NVD. - Objective MAR Reviewed: Yes Vital Signs & Weight: Vital Signs (12 hours) Temp Pulse Resp BP Pulse Ox 07/17/18 03:05 98.2 F 84 20 130/69 97 07/17/18 00:00 18 07/16/18 20:00 98.2 F 88 20 131/63 97 Weight Weight 109.089 kg I&O: 07/15/18 07/16/18 07/17/18 06:59 06:59 06:59 Intake Total 4025 470 Output Total 900 1000 Balance 3125 -530 Result Diagrams: 07/17/18 08:47 07/17/18 07:18 Phys Exam - Physical Examination Constitutional: NAD HEENT: PERRLA, moist MMs, sclera anicteric Neck: supple, full ROM Respiratory: clear to auscultation bilateral Cardiovascular: RRR Gastrointestinal: soft, non-tender, no distention, positive bowel sounds Musculoskeletal: no edema Neurological: non-focal Psychiatric: normal affect, A&O x 3 Dx/Plan (1) Altered mental status Code(s): R41.82 - ALTERED MENTAL STATUS, UNSPECIFIED Status: Acute (2) Hyponatremia Code(s): E87.1 - HYPO-OSMOLALITY AND HYPONATREMIA Status: Acute (3) Viral gastroenteritis Code(s): A08.4 - VIRAL INTESTINAL INFECTION, UNSPECIFIED Status: Acute (4) Acute encephalopathy Code(s): G93.40 - ENCEPHALOPATHY, UNSPECIFIED Status: Acute (5) Seizures Code(s): R56.9 - UNSPECIFIED CONVULSIONS Status: Acute (6) Adrenal insufficiency Code(s): E27.40 - UNSPECIFIED ADRENOCORTICAL INSUFFICIENCY Status: Chronic (7) CAD (coronary artery disease) Code(s): I25.10 - ATHSCL HEART DISEASE OF [place] CORONARY ARTERY W/O ANG PCTRS Status: Chronic Qualifiers: Coronary Disease-Associated Artery/Lesion type: [place] artery Associated angina: without angina (8) CKD (chronic kidney disease) stage 3, GFR 30-59 ml/min Status: Chronic (9) COPD (chronic obstructive pulmonary disease) Status: Chronic Qualifiers: COPD type: COPD with acute exacerbation Qualified Code(s): J44.1 - Chronic obstructive pulmonary disease with (acute) exacerbation (10) GERD (gastroesophageal reflux disease) Code(s): K21.9 - GASTRO-ESOPHAGEAL REFLUX DISEASE WITHOUT ESOPHAGITIS Status: Chronic (11) Hx of kidney transplant Status: Chronic (12) Hyperlipidemia Code(s): E78.5 - HYPERLIPIDEMIA, UNSPECIFIED Status: Chronic (13) Morbid obesity with BMI of 40.0-44.9, adult Code(s): E66.01 - MORBID (SEVERE) OBESITY DUE TO EXCESS CALORIES; Z68.41 - BODY MASS INDEX (BMI) 40.0-44.9, ADULT Status: Chronic (14) JUDI on CPAP Code(s): G47.33 - OBSTRUCTIVE SLEEP APNEA (ADULT) (PEDIATRIC) Status: Chronic (15) Prostate cancer Code(s): C61 - MALIGNANT NEOPLASM OF PROSTATE Status: Chronic - Plan Plan: AMS, likely 2/2 viral gastroenteritis with hyponatremia, improved clinical picture most consistent with viral gastroenteritis with associated hypovolemic hyponatremia. - recent head CT negative - had period of low BP, MAP 55 in ED in addition to need for IV access, L femoral line placed; BP stable - blood cx showing 1/2 gram + enterococcus from the femoral line - likely contaminant, no abx for now. Procal 0.16. Blood cultures redrawn - 1 from peripheral, 1 from line. Patient got peripheral IV access and femoral central line removed. Cath tip culture drawn as well. These cultures are still pending - no growth to date. Moderate hyponatremia likely 2/2 hypovolemia, improved with IVF. - unable to get urine studies as IVF already given in ED - continue to monitor sodium, goal increase of 8 per 24 hrs - 125->128 ->127 -> 133 -> 132 - Will d/c fluids and PO hydrate as Na is improving Anemia On admission 9.1, chronically anemia - on 07/16: Hgb 6.6, 1uPRBC given on 07/16 w/ appropriate increase in hgb - hx of folate deficiency; will start replacement w/ folvite Adrenal insufficiency - Stress dose of steroids given then will restart home hydrocortisone CKD s/p kidney transplant - continue home tacrolimus, mycophenolate mofetil, zytiga HTN - continue home amlodipine, metoprolol, diltiazem, digoxin when confirmed HFpEF, present on admission - Echo 04/2018 showed EF 60-65%, 1/3 diastolic dysfunction IDDM2 - achs accuchecks, mild SSI - continue home insulin Seizure disorder - dilantin level supratherapeutic, 21.8. Noted to have dilantin toxicity on previous admission - will hold dose, then recheck level and consider decreasing dose at a third of current home dose GERD - continue home protonix Gout - continue home allopurinol/colchicine HLD - continue home lipitor Neuropathy - continue home amitriptyline, gabapentin Ppx: lovenox Diet: CC, HH Dispo: pending placement Addendum - Attending - Attending Attestation Date/Time: 07/17/182117 I personally evaluated the patient at 1020 am and discussed the management with Dr. Wilkins I agree with the History, Examination, Assessment and Plan documented above with any addition or exceptions noted below. AMS-resolved. Patient back at baseline Anemia- chronic disease and folate deficiency- improved with 1U prbc xfusion. Replace folate Hypoalbuminemia-nutrition consult Supratherapeutic dilantin- cont hold and restart on d/c at lower dose Mild hyponatremia dec bicarb- continue IVF for now. Recheck BMP tomorrow Deconditioning- await transfer to SNF (hoping for [facility])
[2018-07-17 08:35] LABS: Anion Gap 15 mmol/L (10-20); BUN (Urea Nitrogen) 6 mg/dL (8.4-25.7); Calc. Creatinine Clearance 158 mL/min (70-130); Calcium 7.3 mg/dL (7.8-10.44); Carbon Dioxide 14 mmol/L (23-31); Chloride 107 mmol/L (98-107); Estimated GFR-MDRD Greater than 90; Glucose 129 mg/dL (80-115); Sodium 132 mmol/L (136-145)
[2018-07-17] MEDS ORDERED: guaiFENesin 100 MG/5 ML UDCUP PO PRN (08:52)
[2018-07-17 08:58] LABS: #Eosinphils 0.1 thou/uL (0.0-0.7); #Lymphocytes 1.1 thou/uL (1.20-3.40); #Monocytes 0.6 thou/uL (0.11-0.59); #Neutrophils 2.2 thou/uL (1.40-6.50); %Basophils 0.3 % (0.0-1.0); %Monocytes 14.7 % (0.0-10.0); %Neutrophils 55.1 % (42.0-75.0); Hemoglobin 8.5 g/dL (14.0-18.0); Mean Corpuscular HGB CONC 32.2 g/dL (32.0-36.0); Mean Corpuscular Hemoglobin 31.6 pg (27.0-31.0); Mean Corpuscular Volume 98.3 fL (78.0-98.0); Mean Platelet Volume 6.1 fL (7.4-10.4); Platelet Count 310 thou/uL (130-400); RBC Distribution Width 20.8 % (11.5-14.5); Red Blood Cell (RBC) Count 2.69 mill/uL (4.70-6.10)
[2018-07-17] MEDS: Aspirin 325 mg Enteric Coated Tablet PO SCH (09:16)
[2018-07-17] MEDS: Atorvastatin Calcium 10 MG TAB PO SCH (09:16)
[2018-07-17] MEDS: Allopurinol 300 MG TAB PO SCH (09:16)
[2018-07-17] MEDS: Bumetanide 1 MG TAB PO SCH (09:17)
[2018-07-17] MEDS: Calcitriol 0.25 MCG CAP PO SCH (09:18)
[2018-07-17] MEDS: Digoxin 0.125 MG TAB PO SCH (09:18)
[2018-07-17] MEDS: Hydrocortisone 10 mg Tablet PO SCH ×2 (09:19→20:57)
[2018-07-17] MEDS: Folic Acid 1 MG TAB PO SCH (09:19)
[2018-07-17] MEDS: Enoxaparin Sodium 40 MG/0.4 ML SYRINGE SC SCH (09:19)
[2018-07-17] MEDS: Docusate 100 MG CAP PO SCH ×2 (09:19→20:59)
[2018-07-17] MEDS: Loratadine 10 MG TAB PO SCH (09:20)
[2018-07-17] MEDS: Montelukast Sodium 10 mg Tablet PO SCH (09:20)
[2018-07-17] MEDS: Pantoprazole 40 MG GRANULES PACKET PO SCH (09:20)
[2018-07-17] MEDS: Magnesium Oxide 400 MG TAB PO SCH ×2 (09:20→20:58)
[2018-07-17] MEDS: Mycophenolate 250 MG CAP PO SCH ×2 (09:20→21:02)
[2018-07-17] MEDS: Tacrolimus 1 MG CAP PO SCH ×2 (09:21→20:59)
[2018-07-17] MEDS: Sodium Chloride 0.9% 1,000 ML IV SCH ×3 (09:54→23:30)
[2018-07-17] MEDS: Benzonatate 100 MG CAP PO PRN ×2 (09:55→20:57)
[2018-07-17] MEDS: traZODone HCl 50 MG TAB PO SCH (20:58)
--- NOTE | 2018-07-18 00:05 | EKG ---
Test Reason : Blood Pressure : / mmHG Vent. Rate : 065 BPM Atrial Rate : 065 BPM P-R Int : 208 ms QRS Dur : 086 ms QT Int : 356 ms P-R-T Axes : 097 036 238 degrees QTc Int : 370 ms Normal sinus rhythm Abnormal ECG Confirmed by STANFORD ROMERO, OLIVER ([id number]), web editor TOYA URIBE ([id number]) on 07/18/2018 12:04:13 AM Referred By: Confirmed By:OLIVER COYNE MD
[2018-07-18 05:43] LABS: #Eosinphils 0.1 thou/uL (0.0-0.7); #Lymphocytes 1.1 thou/uL (1.20-3.40); #Monocytes 0.4 thou/uL (0.11-0.59); #Neutrophils 1.5 thou/uL (1.40-6.50); %Basophils 0.5 % (0.0-1.0); %Eosinophils 3.7 % (0.0-10.0); %Lymphocytes 35.8 % (21.0-51.0); %Monocytes 12.1 % (0.0-10.0); %Neutrophils 47.8 % (42.0-75.0); Hemoglobin 7.2 g/dL (14.0-18.0); Mean Corpuscular HGB CONC 32.7 g/dL (32.0-36.0); Mean Corpuscular Hemoglobin 32.4 pg (27.0-31.0); Mean Corpuscular Volume 98.9 fL (78.0-98.0); Mean Platelet Volume 6.2 fL (7.4-10.4); Platelet Count 251 thou/uL (130-400); RBC Distribution Width 20.9 % (11.5-14.5); Red Blood Cell (RBC) Count 2.24 mill/uL (4.70-6.10); White Blood Cell (WBC) Count 3.2 thou/uL (4.8-10.8)
[2018-07-18 06:01] LABS: Anion Gap 7 mmol/L (10-20); BUN (Urea Nitrogen) Less than 4 mg/dL (8.4-25.7); Calc. Creatinine Clearance 220 mL/min (70-130); Calcium 5.9 mg/dL (7.8-10.44); Carbon Dioxide 18 mmol/L (23-31); Chloride 116 mmol/L (98-107); Estimated GFR-MDRD Greater than 90; Glucose 98 mg/dL (80-115); Potassium 2.9 mmol/L (3.5-5.1); Sodium 138 mmol/L (136-145)
[2018-07-18] MEDS ORDERED: Potassium Chloride 20 MEQ TAB PO SCH (06:15)
--- NOTE | 2018-07-18 06:20 | PDOC.FM ---
- Subjective Subjective: NAEO. Patient reports feeling well this morning. Does endorse pain on the bottoms of his feet. Otherwise, denies SOB, chest pain, abdominal pain. at the bedside states patient is at his mental baseline. No other complaints or issues. - Objective MAR Reviewed: Yes Vital Signs & Weight: Vital Signs (12 hours) Temp Pulse Resp BP Pulse Ox 07/18/18 04:40 98 F 83 20 126/61 98 07/18/18 00:00 80 20 07/17/18 20:00 98.3 F 83 20 117/56 L 97 Weight Weight 109.089 kg I&O: 07/16/18 07/17/18 07/18/18 06:59 06:59 06:59 Intake Total 4025 470 1828 Output Total 900 1000 100 Balance 3125 -530 1728 Result Diagrams: 07/18/18 04:45 07/18/18 04:45 Phys Exam - Physical Examination Constitutional: NAD HEENT: PERRLA, moist MMs, sclera anicteric Neck: supple, full ROM Respiratory: clear to auscultation bilateral Cardiovascular: RRR Gastrointestinal: soft, non-tender, no distention, positive bowel sounds Musculoskeletal: no edema Neurological: non-focal, normal sensation, moves all 4 limbs TTP of bilateral plantar surface of feet Psychiatric: normal affect, A&O x 3 Dx/Plan (1) Altered mental status Code(s): R41.82 - ALTERED MENTAL STATUS, UNSPECIFIED Status: Acute (2) Hyponatremia Code(s): E87.1 - HYPO-OSMOLALITY AND HYPONATREMIA Status: Acute (3) Viral gastroenteritis Code(s): A08.4 - VIRAL INTESTINAL INFECTION, UNSPECIFIED Status: Acute (4) Acute encephalopathy Code(s): G93.40 - ENCEPHALOPATHY, UNSPECIFIED Status: Acute (5) Seizures Code(s): R56.9 - UNSPECIFIED CONVULSIONS Status: Acute (6) Adrenal insufficiency Code(s): E27.40 - UNSPECIFIED ADRENOCORTICAL INSUFFICIENCY Status: Chronic (7) CAD (coronary artery disease) Code(s): I25.10 - ATHSCL HEART DISEASE OF [place] CORONARY ARTERY W/O ANG PCTRS Status: Chronic Qualifiers: Coronary Disease-Associated Artery/Lesion type: [place] artery Associated angina: without angina (8) CKD (chronic kidney disease) stage 3, GFR 30-59 ml/min Status: Chronic (9) COPD (chronic obstructive pulmonary disease) Status: Chronic Qualifiers: COPD type: COPD with acute exacerbation Qualified Code(s): J44.1 - Chronic obstructive pulmonary disease with (acute) exacerbation (10) GERD (gastroesophageal reflux disease) Code(s): K21.9 - GASTRO-ESOPHAGEAL REFLUX DISEASE WITHOUT ESOPHAGITIS Status: Chronic (11) Hx of kidney transplant Status: Chronic (12) Hyperlipidemia Code(s): E78.5 - HYPERLIPIDEMIA, UNSPECIFIED Status: Chronic (13) Morbid obesity with BMI of 40.0-44.9, adult Code(s): E66.01 - MORBID (SEVERE) OBESITY DUE TO EXCESS CALORIES; Z68.41 - BODY MASS INDEX (BMI) 40.0-44.9, ADULT Status: Chronic (14) JUDI on CPAP Code(s): G47.33 - OBSTRUCTIVE SLEEP APNEA (ADULT) (PEDIATRIC) Status: Chronic (15) Prostate cancer Code(s): C61 - MALIGNANT NEOPLASM OF PROSTATE Status: Chronic - Plan Plan: AMS, likely 2/2 viral gastroenteritis with hyponatremia, improved clinical picture most consistent with viral gastroenteritis with associated hypovolemic hyponatremia. - recent head CT negative - had period of low BP, MAP 55 in ED in addition to need for IV access, L femoral line placed; BP stable - blood cx showing 1/2 gram + enterococcus from the femoral line - likely contaminant, no abx for now. Procal 0.16. Blood cultures redrawn - 1 from peripheral, 1 from line. Patient got peripheral IV access and femoral central line removed. Cath tip culture drawn as well. Results: Gram pos ana m grown from central line 1/2 cultures. No growth from the catheter tip. No growth from peripheral. Likely contaminant. Will not start abx. Hypokalemia - K 2.9 on 07/18, Will continue to monitor and replace as needed Moderate hyponatremia likely 2/2 hypovolemia, improved with IVF. - unable to get urine studies as IVF already given in ED - continue to monitor sodium, goal increase of 8 per 24 hrs - 125->128 ->127 -> 133 -> 132 -> 138 - Will d/c fluids and PO hydrate as Na is improving Anemia On admission 9.1, chronically anemia - on 07/16: Hgb 6.6, 1uPRBC given on 07/16 w/ appropriate increase in hgb - hx of folate deficiency; will start replacement w/ folvite Adrenal insufficiency - Stress dose of steroids given then will restart home hydrocortisone CKD s/p kidney transplant - continue home tacrolimus, mycophenolate mofetil, zytiga HTN - continue home amlodipine, metoprolol, diltiazem, digoxin when confirmed HFpEF, present on admission - Echo 04/2018 showed EF 60-65%, 1/3 diastolic dysfunction IDDM2 - achs accuchecks, mild SSI - continue home insulin Seizure disorder - dilantin level supratherapeutic, 21.8. Noted to have dilantin toxicity on previous admission - will hold dose, then recheck level and consider decreasing dose at a third of current home dose GERD - continue home protonix Gout - continue home allopurinol/colchicine HLD - continue home lipitor Neuropathy - continue home amitriptyline, gabapentin - if patient becomes altered, consider decreasing dosage Ppx: lovenox Diet: THOMAS CASTELLANOS Dispo: pending placement Addendum - Attending - Attending Attestation Date/Time: 07/18/18 4300 I personally evaluated the patient at 1035 am and discussed the management with Dr. Wilkins. I agree with the History, Examination, Assessment and Plan documented above with any addition or exceptions noted below. AMS-resolved Hypomagnesemia, hypocalcemia, hypokalemia- replace eletrolytes Hypoalbuminemia- appreciate nutrition recs for dietary supplements Macrocytic anemia secondary to folate deficiency and chronic disease- replace folate Neo's disease- hydrocortisone
[2018-07-18] MEDS ORDERED: Calcium Chloride 13.6 MEQ in Sodium Chloride 0.9% 100 ML IVPB SCH (08:00)
[2018-07-18] MEDS ORDERED: GABAPENTIN PO SCH (09:00)
[2018-07-18] MEDS: Potassium Chloride 20 MEQ TAB PO SCH ×2 (09:11→17:34)
[2018-07-18] MEDS: Ondansetron ODT 8 MG TAB SL PRN (09:14)
[2018-07-18] MEDS: Allopurinol 300 MG TAB PO SCH (09:15)
[2018-07-18] MEDS: Loratadine 10 MG TAB PO SCH (09:15)
[2018-07-18] MEDS: Montelukast Sodium 10 mg Tablet PO SCH (09:15)
[2018-07-18] MEDS: Calcium Carbonate 500 MG ChewTAB PO SCH ×2 (09:17→21:28)
[2018-07-18] MEDS: Bumetanide 1 MG TAB PO SCH (09:18)
[2018-07-18] MEDS: Hydrocortisone 10 mg Tablet PO SCH ×2 (09:18→21:27)
[2018-07-18] MEDS: Calcitriol 0.25 MCG CAP PO SCH (09:18)
[2018-07-18] MEDS: Folic Acid 1 MG TAB PO SCH (09:19)
[2018-07-18] MEDS: Digoxin 0.125 MG TAB PO SCH (09:20)
[2018-07-18] MEDS: Tacrolimus 1 MG CAP PO SCH ×2 (09:20→21:28)
[2018-07-18] MEDS: Mycophenolate 250 MG CAP PO SCH ×2 (09:21→21:28)
[2018-07-18] MEDS: Atorvastatin Calcium 10 MG TAB PO SCH (09:23)
[2018-07-18] MEDS: Gabapentin 300 MG CAP PO SCH ×2 (09:23→21:27)
[2018-07-18] MEDS: Magnesium Oxide 400 MG TAB PO SCH ×2 (09:24→21:27)
[2018-07-18] MEDS: Benzonatate 100 MG CAP PO PRN (09:24)
[2018-07-18] MEDS: Pantoprazole 40 MG GRANULES PACKET PO SCH (09:25)
[2018-07-18] MEDS: Aspirin 325 mg Enteric Coated Tablet PO SCH (09:25)
[2018-07-18] MEDS: Enoxaparin Sodium 40 MG/0.4 ML SYRINGE SC SCH (09:26)
[2018-07-18] MEDS: Docusate 100 MG CAP PO SCH ×2 (09:29→21:28)
[2018-07-18] MEDS: traMADol HCl 50 MG TAB PO PRN ×2 (14:49→22:00)
[2018-07-18] MEDS ORDERED: MAGNESIUM IVPB SCH (15:00)
[2018-07-18] MEDS ORDERED: Magnesium Sulfate 6 GM in Sodium Chloride 0.9% 250 ML 250 ML IVPB SCH (15:30)
[2018-07-18] MEDS ORDERED: Magnesium Sulfate 1 GM/2 ML VIAL IM SCH (17:30)
[2018-07-18] MEDS: Acetaminophen 325 MG TAB PO PRN (17:31)
--- NOTE | 2018-07-18 18:38 | PDOC.EVN ---
Event Note - Event Note Event Note: Transition of Care This is a 68 yo M who presented to the ED from [facility] due to AMS. The patient has a complicated PMH consisting of adrenal insufficiency, CKD s/p kidney transplant on immunosuppression, HLD, COPD, JUDI, HTN, GERD, gout, metastatic prostate cancer, seizure disorder, HFpEF, and neuropathy. The patient presented with a 3 day history nausea/vomiting/diarrhea with associated weakness and worsening altered mental status. Due to patient's illness, patient had not been taking medications, including his steroids for the past several days. On presentation, the patient had period of low BP, MAP 55 in ED and a L femoral line was placed. The patient's BP responded to IVF. THe patient was also found to be hyponatremic with a sodium of 127. The patient was continued on NS IVF. It is thought that the patient's AMS was due to a his viral gastroenteritis causing him to become volume depleted as well as adrenal insufficieny and the patient not taking his medications recently. The patient was given a stress dose of steroids for the first three days and then transitioned to his home steroids. The patient's AMS returned to baseline on day 2. The patient was found to have electrolyte abnormalities including K, Mg, and Phos which were monitored and replaced as necessary. The patient has a hx of chronic anemia and was found to have a Hgb of 6.5 on 07/17/18 and was given 1 unit of PRBCs. The patient was also started on folvite due to hx of folate deficiency. The patient denied any symptoms including dizziness or lightheadedness. Of note, the patient had a central line blood culture positive for Enterococcus fecalis - 1/ 2 cultures. It was thought that this was a contaminant - blood cultures were drawn from the peripheral, central line, and the cath tip was cultured. These resulted in a positive central line 1/2 cultures for gram positive ana m, also thought to be a contaminant. The patient has remained afebrile and WBC has trended down. The patient's procal was negative on admission and no abx were started. The patient's dilantin level was also found to be supratherapeutic. The patient's phenytoin has been held throughout his stay while we wait for the level to be therapeutic. The plan is to start the patient back on his phenytoin upon discharge at a decreased dosage of 6.7mL PO daily (167.5mg) - The phenytoin need may need to be adjusted to patient's current albumin level closer to discharge. The patient is going to be placed into a SNF. He was denied [facility] and is awaiting placement at [facility].
[2018-07-18 19:37] LABS: Anion Gap 14 mmol/L (10-20); BUN (Urea Nitrogen) Less than 4 mg/dL (8.4-25.7); Calc. Creatinine Clearance 163 mL/min (70-130); Calcium 7.9 mg/dL (7.8-10.44); Carbon Dioxide 18 mmol/L (23-31); Chloride 107 mmol/L (98-107); Estimated GFR-MDRD Greater than 90; Glucose 152 mg/dL (80-115); Magnesium 1.1 mg/dL (1.6-2.6); Potassium 4.8 mmol/L (3.5-5.1); Sodium 134 mmol/L (136-145)
[2018-07-18] MEDS ORDERED: Gabapentin 300 MG CAP PO SCH (21:00)
[2018-07-18] MEDS: traZODone HCl 50 MG TAB PO SCH (21:27)
--- NOTE | 2018-07-19 06:12 | PDOC.FM ---
- Subjective Subjective: Mr. Joseph is sitting comfortably in his chair, he fells well and would [place] [facility] [place] manor - Objective Vital Signs & Weight: Vital Signs (12 hours) Temp Pulse Resp BP Pulse Ox 07/19/18 03:19 97.5 F L 72 20 137/63 98 07/18/18 21:28 97 07/18/18 21:22 97.8 F 71 18 132/60 97 Weight Weight 110.858 kg I&O: 07/17/18 07/18/18 07/19/18 06:59 06:59 06:59 Intake Total 470 3588 720 Output Total 1000 500 375 Balance -530 3088 345 Result Diagrams: 07/19/18 06:01 07/19/18 06:01 Phys Exam - Physical Examination Constitutional: NAD HEENT: moist MMs Neck: no JVD Musculoskeletal: no edema Neurological: moves all 4 limbs Psychiatric: normal affect Skin: no rash Dx/Plan (1) Altered mental status Code(s): R41.82 - ALTERED MENTAL STATUS, UNSPECIFIED Status: Acute (2) Hyponatremia Code(s): E87.1 - HYPO-OSMOLALITY AND HYPONATREMIA Status: Acute (3) Viral gastroenteritis Code(s): A08.4 - VIRAL INTESTINAL INFECTION, UNSPECIFIED Status: Acute (4) Seizures Code(s): R56.9 - UNSPECIFIED CONVULSIONS Status: Acute (5) Adrenal insufficiency Code(s): E27.40 - UNSPECIFIED ADRENOCORTICAL INSUFFICIENCY Status: Chronic (6) CKD (chronic kidney disease) stage 3, GFR 30-59 ml/min Status: Chronic (7) COPD (chronic obstructive pulmonary disease) Status: Chronic Qualifiers: COPD type: COPD with acute exacerbation Qualified Code(s): J44.1 - Chronic obstructive pulmonary disease with (acute) exacerbation (8) GERD (gastroesophageal reflux disease) Code(s): K21.9 - GASTRO-ESOPHAGEAL REFLUX DISEASE WITHOUT ESOPHAGITIS Status: Chronic (9) Hx of kidney transplant Status: Chronic (10) Hyperlipidemia Code(s): E78.5 - HYPERLIPIDEMIA, UNSPECIFIED Status: Chronic (11) Hypothyroid Code(s): E03.9 - HYPOTHYROIDISM, UNSPECIFIED Status: Chronic (12) Adrenal insufficiency Code(s): E27.40 - UNSPECIFIED ADRENOCORTICAL INSUFFICIENCY Status: Suspected - Plan Plan: AMS, likely 2/2 viral gastroenteritis with hyponatremia, improved clinical picture most consistent with viral gastroenteritis with associated hypovolemic hyponatremia. - recent head CT negative - had period of low BP, MAP 55 in ED in addition to need for IV access, L femoral line placed; BP stable - blood cx showing 1/2 gram + enterococcus from the femoral line - likely contaminant, no abx for now. Procal 0.16. Blood cultures redrawn - 1 from peripheral, 1 from line. Patient got peripheral IV access and femoral central line removed. Cath tip culture drawn as well. Results: Gram pos ana m grown from central line 1/2 cultures. No growth from the catheter tip. No growth from peripheral. Likely contaminant. Will not start abx. Hypokalemia - Will continue to monitor and replace as needed Moderate hyponatremia likely 2/2 hypovolemia, improved with IVF. - unable to get urine studies as IVF already given in ED - continue to monitor sodium, PO hydration Anemia On admission 9.1, near baseline - 9.3 on 07/19 - hx of folate deficiency; will continue replacement w/ folvite - worked up extensively on current and past admission, no bleeding found Adrenal insufficiency - Stress dose of steroids given then will restart home hydrocortisone CKD s/p kidney transplant - continue home tacrolimus, mycophenolate mofetil, zytiga HTN - continue home amlodipine, metoprolol, diltiazem, digoxin HFpEF, present on admission - Echo 04/2018 showed EF 60-65%, 1/3 diastolic dysfunction IDDM2 - achs accuchecks, mild SSI - continue home insulin Seizure disorder - dilantin level supratherapeutic, 21.8. Noted to have dilantin toxicity on previous admission - will hold dose, then recheck level and consider decreasing dose at a third of current home dose GERD - continue home protonix Gout - continue home allopurinol/colchicine HLD - continue home lipitor Neuropathy - continue home amitriptyline, gabapentin - if patient becomes altered, consider decreasing dosage Ppx: lovenox Diet: THOMAS CASTELLANOS Dispo: pending placement Addendum - Attending - Attending Attestation Date/Time: 07/19/18 3633 I personally evaluated the patient and discussed the management with Dr. Peralta I agree with the History, Examination, Assessment and Plan documented above with any addition or exceptions noted below - Patient without complaints. Afebrile VSS. A/P: Hypovolemic hyponatremia- resolved. 2) Hypokalemia- resolved. 3) AMS- resolved; most likely secondary to dehydration/electrolyte abnormalities. 4) Supratherapeutic dilantin- recheck level and albumin tomorrow. 5) Deconditioning- awaiting SNF placement; continue PT.
[2018-07-19 06:24] LABS: Anion Gap 10 mmol/L (10-20); BUN (Urea Nitrogen) Less than 4 mg/dL (8.4-25.7); Calc. Creatinine Clearance 172 mL/min (70-130); Calcium 8.1 mg/dL (7.8-10.44); Carbon Dioxide 20 mmol/L (23-31); Chloride 109 mmol/L (98-107); Estimated GFR-MDRD Greater than 90; Glucose 115 mg/dL (80-115); Potassium 4.7 mmol/L (3.5-5.1); Sodium 134 mmol/L (136-145)
[2018-07-19 06:34] LABS: Eosinophils 5 % (0-10); Hemoglobin 9.3 g/dL (14.0-18.0); Lymphocytes 22 % (21-51); MDiff Complete? YES; Mean Corpuscular HGB CONC 31.6 g/dL (32.0-36.0); Mean Corpuscular Hemoglobin 31.3 pg (27.0-31.0); Mean Corpuscular Volume 99.1 fL (78.0-98.0); Mean Platelet Volume 6.7 fL (7.4-10.4); Monocytes 16 % (0-10); Neutrophil 57 % (42-75); Platelet Count 267 thou/uL (130-400); Platelet Morphology Comment Appears Adequate; RBC Distribution Width 21.5 % (11.5-14.5); Red Blood Cell (RBC) Count 2.95 mill/uL (4.70-6.10); White Blood Cell (WBC) Count 3.4 thou/uL (4.8-10.8)
[2018-07-19] MEDS: Potassium Chloride 20 MEQ TAB PO SCH ×2 (09:50→17:40)
[2018-07-19] MEDS: Atorvastatin Calcium 10 MG TAB PO SCH (09:50)
[2018-07-19] MEDS: Docusate 100 MG CAP PO SCH ×2 (09:50→20:43)
[2018-07-19] MEDS: Digoxin 0.125 MG TAB PO SCH (09:51)
[2018-07-19] MEDS: Aspirin 325 mg Enteric Coated Tablet PO SCH (09:52)
[2018-07-19] MEDS: Magnesium Oxide 400 MG TAB PO SCH ×2 (09:52→20:43)
[2018-07-19] MEDS: Montelukast Sodium 10 mg Tablet PO SCH (09:53)
[2018-07-19] MEDS: Allopurinol 300 MG TAB PO SCH (09:53)
[2018-07-19] MEDS: Calcitriol 0.25 MCG CAP PO SCH (09:53)
[2018-07-19] MEDS: Folic Acid 1 MG TAB PO SCH (09:53)
[2018-07-19] MEDS: Gabapentin 300 MG CAP PO SCH ×2 (09:53→20:45)
[2018-07-19] MEDS: Bumetanide 1 MG TAB PO SCH (09:53)
[2018-07-19] MEDS: Tacrolimus 1 MG CAP PO SCH ×2 (09:54→20:43)
[2018-07-19] MEDS: Loratadine 10 MG TAB PO SCH (09:54)
[2018-07-19] MEDS: Hydrocortisone 10 mg Tablet PO SCH ×2 (09:56→20:44)
[2018-07-19] MEDS: Mycophenolate 250 MG CAP PO SCH ×2 (09:56→20:43)
[2018-07-19] MEDS: Calcium Carbonate 500 MG ChewTAB PO SCH (09:58)
[2018-07-19] MEDS: Pantoprazole 40 MG GRANULES PACKET PO SCH (10:35)
[2018-07-19] MEDS: Enoxaparin Sodium 40 MG/0.4 ML SYRINGE SC SCH (11:57)
[2018-07-19] MEDS: Benzonatate 100 MG CAP PO PRN (20:43)
[2018-07-19] MEDS: traZODone HCl 50 MG TAB PO SCH (20:44)
--- NOTE | 2018-07-20 06:46 | PDOC.FM ---
- Subjective Subjective: pt is resting comfortably in bed, he continues to feel well, no pain or fever. they report if he is not placed somewhere today, they would like to go home with home health. - Objective Vital Signs & Weight: Vital Signs (12 hours) Temp Pulse Resp BP Pulse Ox 07/20/18 03:56 98 F 74 18 139/62 95 07/19/18 20:43 99 07/19/18 20:34 98.1 F 76 16 137/64 99 Weight Admit Weight 109.769 kg Weight 111.13 kg I&O: 07/18/18 07/19/18 07/20/18 06:59 06:59 06:59 Intake Total 3588 1100 2370 Output Total 225 636 8889 Balance 3088 325 -1230 Result Diagrams: 07/20/18 07:15 07/20/18 07:15 Phys Exam - Physical Examination Constitutional: NAD HEENT: moist MMs Neck: no JVD Gastrointestinal: no distention Musculoskeletal: no edema Neurological: moves all 4 limbs Psychiatric: normal affect Skin: no rash Dx/Plan (1) Altered mental status Code(s): R41.82 - ALTERED MENTAL STATUS, UNSPECIFIED Status: Acute (2) Hyponatremia Code(s): E87.1 - HYPO-OSMOLALITY AND HYPONATREMIA Status: Acute (3) Viral gastroenteritis Code(s): A08.4 - VIRAL INTESTINAL INFECTION, UNSPECIFIED Status: Acute (4) Seizures Code(s): R56.9 - UNSPECIFIED CONVULSIONS Status: Acute (5) Adrenal insufficiency Code(s): E27.40 - UNSPECIFIED ADRENOCORTICAL INSUFFICIENCY Status: Chronic (6) CKD (chronic kidney disease) stage 3, GFR 30-59 ml/min Status: Chronic (7) COPD (chronic obstructive pulmonary disease) Status: Chronic Qualifiers: COPD type: COPD with acute exacerbation Qualified Code(s): J44.1 - Chronic obstructive pulmonary disease with (acute) exacerbation (8) GERD (gastroesophageal reflux disease) Code(s): K21.9 - GASTRO-ESOPHAGEAL REFLUX DISEASE WITHOUT ESOPHAGITIS Status: Chronic (9) Hx of kidney transplant Status: Chronic (10) Hyperlipidemia Code(s): E78.5 - HYPERLIPIDEMIA, UNSPECIFIED Status: Chronic (11) Hypothyroid Code(s): E03.9 - HYPOTHYROIDISM, UNSPECIFIED Status: Chronic (12) Adrenal insufficiency Code(s): E27.40 - UNSPECIFIED ADRENOCORTICAL INSUFFICIENCY Status: Suspected - Plan Plan: AMS, likely 2/2 viral gastroenteritis with hyponatremia, improved clinical picture most consistent with viral gastroenteritis with associated hypovolemic hyponatremia. - recent head CT negative - had period of low BP, MAP 55 in ED in addition to need for IV access, L femoral line placed; BP stable - blood cx showing 1/2 gram + enterococcus from the femoral line - likely contaminant, no abx for now. Procal 0.16. Blood cultures redrawn - 1 from peripheral, 1 from line. Patient got peripheral IV access and femoral central line removed. Cath tip culture drawn as well. Results: Gram pos ana m grown from central line 1/2 cultures. No growth from the catheter tip. No growth from peripheral. Likely contaminant. Will not start abx. Hypokalemia - Will continue to monitor and replace as needed Moderate hyponatremia likely 2/2 hypovolemia, improved with IVF. - unable to get urine studies as IVF already given in ED - continue to monitor sodium, PO hydration Anemia On admission 9.1, near baseline - 9.3 on 07/19 continue to monitor - hx of folate deficiency; will continue replacement w/ folvite - worked up extensively on current and past admission, no bleeding found Adrenal insufficiency - Stress dose of steroids given then will restart home hydrocortisone CKD s/p kidney transplant - continue home tacrolimus, mycophenolate mofetil, zytiga HTN - continue home amlodipine, metoprolol, diltiazem, digoxin HFpEF, present on admission - Echo 04/2018 showed EF 60-65%, 1/3 diastolic dysfunction IDDM2 - achs accuchecks, mild SSI - continue home insulin Seizure disorder - dilantin level supratherapeutic, 21.8. Noted to have dilantin toxicity on previous admission - will hold dose, then recheck level and consider decreasing dose at a third of current home dose GERD - continue home protonix Gout - continue home allopurinol/colchicine HLD - continue home lipitor Neuropathy - continue home amitriptyline, gabapentin - if patient becomes altered, consider decreasing dosage Ppx: lovenox Diet: THOMAS CASTELLANOS Dispo: pending placement Addendum - Attending - Attending Attestation Date/Time: 07/20/18 0635 I personally evaluated the patient and discussed the management with Dr. Peralta I agree with the History, Examination, Assessment and Plan documented above with any addition or exceptions noted below- Patient without complaints. [place] weak after BM this morning and had to help him to the floor. Did not hit his head or otherwise injury himself. Afebrile VSS. A/P: 1) Dehydration- resolved. 2) Hypokalemia- resolved. 3) Adrenal insufficiency - continue hydrocortisone. 4) supratherapeutic dilantin- Corrected level=15 today; plan to restart dilantin at lower dose and monitor closely. 5) Protein calorie malnutrition- continue supplements as per nutrition. 6) DM- stable. 7) D/c planning- awaiting SNF acceptance.
[2018-07-20 07:30] LABS: #Basophils 0.1 thou/uL (0.0-0.2); #Eosinphils 0.2 thou/uL (0.0-0.7); #Lymphocytes 1.9 thou/uL (1.20-3.40); #Monocytes 0.7 thou/uL (0.11-0.59); #Neutrophils 2.1 thou/uL (1.40-6.50); %Basophils 1.1 % (0.0-1.0); %Eosinophils 3.4 % (0.0-10.0); %Lymphocytes 38.5 % (21.0-51.0); %Neutrophils 42.9 % (42.0-75.0); Hemoglobin 9.2 g/dL (14.0-18.0); Mean Corpuscular Hemoglobin 31.4 pg (27.0-31.0); Mean Platelet Volume 6.4 fL (7.4-10.4); Platelet Count 280 thou/uL (130-400); RBC Distribution Width 21.4 % (11.5-14.5); Red Blood Cell (RBC) Count 2.94 mill/uL (4.70-6.10); White Blood Cell (WBC) Count 4.9 thou/uL (4.8-10.8)
[2018-07-20 07:48] LABS: Anion Gap 12 mmol/L (10-20); BUN (Urea Nitrogen) 6 mg/dL (8.4-25.7); Calc. Creatinine Clearance 169 mL/min (70-130); Calcium 8.2 mg/dL (7.8-10.44); Carbon Dioxide 22 mmol/L (23-31); Chloride 106 mmol/L (98-107); Estimated GFR-MDRD Greater than 90; Glucose 127 mg/dL (80-115); Potassium 5.8 mmol/L (3.5-5.1); Sodium 134 mmol/L (136-145)
[2018-07-20 07:50] LABS: Albumin 2.4 g/dL (3.4-4.8); Dilantin 8.7 ug/mL (10.0-20.0)
[2018-07-20] MEDS: Calcitriol 0.25 MCG CAP PO SCH (08:36)
[2018-07-20] MEDS: Enoxaparin Sodium 40 MG/0.4 ML SYRINGE SC SCH (08:36)
[2018-07-20] MEDS: Montelukast Sodium 10 mg Tablet PO SCH (08:36)
[2018-07-20] MEDS: Digoxin 0.125 MG TAB PO SCH (08:36)
[2018-07-20] MEDS: Folic Acid 1 MG TAB PO SCH (08:37)
[2018-07-20] MEDS: Magnesium Oxide 400 MG TAB PO SCH ×2 (08:37→21:09)
[2018-07-20] MEDS: Aspirin 325 mg Enteric Coated Tablet PO SCH (08:38)
[2018-07-20] MEDS: Docusate 100 MG CAP PO SCH ×2 (08:38→21:10)
[2018-07-20] MEDS: Bumetanide 1 MG TAB PO SCH (08:38)
[2018-07-20] MEDS: Atorvastatin Calcium 10 MG TAB PO SCH (08:39)
[2018-07-20] MEDS: Potassium Chloride 20 MEQ TAB PO SCH ×2 (08:39→18:22)
[2018-07-20] MEDS: Allopurinol 300 MG TAB PO SCH (08:39)
[2018-07-20] MEDS: Loratadine 10 MG TAB PO SCH (08:39)
[2018-07-20] MEDS: Hydrocortisone 10 mg Tablet PO SCH ×2 (08:40→21:09)
[2018-07-20] MEDS: Gabapentin 300 MG CAP PO SCH ×2 (08:40→21:09)
[2018-07-20] MEDS: Mycophenolate 250 MG CAP PO SCH ×2 (08:41→21:10)
[2018-07-20] MEDS: Tacrolimus 1 MG CAP PO SCH ×2 (08:41→21:10)
[2018-07-20 09:24] LABS: Anisocytosis MODERATE=16-30 cells (100X) (0-5/hpf); Hypochromia SLIGHT = 6-15 cells (100X) (0-5/hpf); MDiff Complete? YES; Platelet Morphology Comment Appears Adequate; Polychromasia MODERATE = 3-4 cells (100X) (0-2/hpf)
[2018-07-20] MEDS: HumaLOG 300 UNITS/3 ML VIAL SC PRN (18:22)
[2018-07-20] MEDS: traZODone HCl 50 MG TAB PO SCH (21:09)
--- NOTE | 2018-07-21 06:21 | PDOC.FM ---
- Subjective Subjective: pt is resting comfortably in bed, he reports he has regained his appetite. He and his are eagerly awaiting placement - Objective Vital Signs & Weight: Vital Signs (12 hours) Temp Pulse Resp BP BP Pulse Ox 07/21/18 04:00 97.8 F 93 16 106/49 L 94 L 07/20/18 21:10 98 07/20/18 20:57 98.1 F 79 18 137/63 98 Weight Admit Weight 109.769 kg Weight 109.679 kg I&O: 07/19/18 07/20/18 07/21/18 06:59 06:59 06:59 Intake Total 1100 2370 810 Output Total 775 3600 2300 Balance 325 -3750 -1490 Result Diagrams: 07/21/18 05:44 07/22/18 06:40 Phys Exam - Physical Examination Constitutional: NAD HEENT: moist MMs Neck: no JVD Gastrointestinal: no distention Musculoskeletal: no edema Neurological: moves all 4 limbs Psychiatric: normal affect Skin: no rash Dx/Plan (1) Altered mental status Code(s): R41.82 - ALTERED MENTAL STATUS, UNSPECIFIED Status: Acute (2) Hyponatremia Code(s): E87.1 - HYPO-OSMOLALITY AND HYPONATREMIA Status: Acute (3) Viral gastroenteritis Code(s): A08.4 - VIRAL INTESTINAL INFECTION, UNSPECIFIED Status: Acute (4) Seizures Code(s): R56.9 - UNSPECIFIED CONVULSIONS Status: Acute (5) Adrenal insufficiency Code(s): E27.40 - UNSPECIFIED ADRENOCORTICAL INSUFFICIENCY Status: Chronic (6) CKD (chronic kidney disease) stage 3, GFR 30-59 ml/min Status: Chronic (7) COPD (chronic obstructive pulmonary disease) Status: Chronic Qualifiers: COPD type: COPD with acute exacerbation Qualified Code(s): J44.1 - Chronic obstructive pulmonary disease with (acute) exacerbation (8) GERD (gastroesophageal reflux disease) Code(s): K21.9 - GASTRO-ESOPHAGEAL REFLUX DISEASE WITHOUT ESOPHAGITIS Status: Chronic (9) Hx of kidney transplant Status: Chronic (10) Hyperlipidemia Code(s): E78.5 - HYPERLIPIDEMIA, UNSPECIFIED Status: Chronic (11) Hypothyroid Code(s): E03.9 - HYPOTHYROIDISM, UNSPECIFIED Status: Chronic (12) Adrenal insufficiency Code(s): E27.40 - UNSPECIFIED ADRENOCORTICAL INSUFFICIENCY Status: Suspected - Plan Plan: AMS, likely 2/2 viral gastroenteritis with hyponatremia, improved clinical picture most consistent with viral gastroenteritis with associated hypovolemic hyponatremia. - recent head CT negative - had period of low BP, MAP 55 in ED in addition to need for IV access, L femoral line placed; BP stable - blood cx showing 1/2 gram + enterococcus from the femoral line - likely contaminant, no abx for now. Procal 0.16. Blood cultures redrawn - 1 from peripheral, 1 from line. Patient got peripheral IV access and femoral central line removed. Cath tip culture drawn as well. Results: Gram pos ana m grown from central line 1/2 cultures. No growth from the catheter tip. No growth from peripheral. Likely contaminant. Will not start abx. Hypokalemia - Will continue to monitor and replace as needed Moderate hyponatremia likely 2/2 hypovolemia, improved with IVF. - unable to get urine studies as IVF already given in ED - continue to monitor sodium, PO hydration Anemia On admission 9.1, near baseline - 9.3 on 07/19 continue to monitor - hx of folate deficiency; will continue replacement w/ folvite - worked up extensively on current and past admission, no bleeding found Adrenal insufficiency - Stress dose of steroids given then will restart home hydrocortisone CKD s/p kidney transplant - continue home tacrolimus, mycophenolate mofetil, zytiga HTN - continue home amlodipine, metoprolol, diltiazem, digoxin HFpEF, present on admission - Echo 04/2018 showed EF 60-65%, 1/3 diastolic dysfunction IDDM2 - achs accuchecks, mild SSI - continue home insulin Seizure disorder - dilantin level in therapeutic range when calculated considering albumin level - will consult with pharmacy for correct dosing/monitoring GERD - continue home protonix Gout - continue home allopurinol/colchicine HLD - continue home lipitor Neuropathy - continue home amitriptyline, gabapentin - if patient becomes altered, consider decreasing dosage Ppx: lovenox Diet: THOMAS CASTELLANOS Dispo: pending placement Addendum - Attending - Attending Attestation Date/Time: 07/22/18 6104 I personally evaluated the patient and discussed the management with Dr. Peralta on 07/21/2018 I agree with the History, Examination, Assessment and Plan documented above with any addition or exceptions noted below- Patient without complaints. Afebrile VSS. A/P: 1) Dehydration- resolved. 2) DM- stable. 3) Deconditioning- awaiting SNF placement.
[2018-07-21 06:29] LABS: #Eosinphils 0.3 thou/uL (0.0-0.7); #Lymphocytes 1.6 thou/uL (1.20-3.40); #Monocytes 0.6 thou/uL (0.11-0.59); #Neutrophils 2.5 thou/uL (1.40-6.50); %Basophils 0.4 % (0.0-1.0); %Eosinophils 6.4 % (0.0-10.0); %Monocytes 11.6 % (0.0-10.0); %Neutrophils 49.7 % (42.0-75.0); Hemoglobin 9.1 g/dL (14.0-18.0); Mean Corpuscular HGB CONC 30.9 g/dL (32.0-36.0); Mean Corpuscular Hemoglobin 30.9 pg (27.0-31.0); Mean Platelet Volume 6.8 fL (7.4-10.4); Platelet Count 297 thou/uL (130-400); RBC Distribution Width 21.4 % (11.5-14.5); Red Blood Cell (RBC) Count 2.94 mill/uL (4.70-6.10); White Blood Cell (WBC) Count 4.9 thou/uL (4.8-10.8)
[2018-07-21 06:49] LABS: Anion Gap 14 mmol/L (10-20); BUN (Urea Nitrogen) 7 mg/dL (8.4-25.7); Calc. Creatinine Clearance 172 mL/min (70-130); Calcium 8.6 mg/dL (7.8-10.44); Carbon Dioxide 19 mmol/L (23-31); Chloride 105 mmol/L (98-107); Estimated GFR-MDRD Greater than 90; Glucose 128 mg/dL (80-115); Potassium 5.6 mmol/L (3.5-5.1); Sodium 132 mmol/L (136-145)
[2018-07-21] MEDS: Digoxin 0.125 MG TAB PO SCH (09:29)
[2018-07-21] MEDS: Calcitriol 0.25 MCG CAP PO SCH (09:30)
[2018-07-21] MEDS: Loratadine 10 MG TAB PO SCH (09:30)
[2018-07-21] MEDS: Magnesium Oxide 400 MG TAB PO SCH ×2 (09:30→20:46)
[2018-07-21] MEDS: Hydrocortisone 10 mg Tablet PO SCH ×2 (09:30→20:46)
[2018-07-21] MEDS: Atorvastatin Calcium 10 MG TAB PO SCH (09:30)
[2018-07-21] MEDS: Gabapentin 300 MG CAP PO SCH ×2 (09:30→20:46)
[2018-07-21] MEDS: Montelukast Sodium 10 mg Tablet PO SCH (09:30)
[2018-07-21] MEDS: Bumetanide 1 MG TAB PO SCH (09:31)
[2018-07-21] MEDS: Docusate 100 MG CAP PO SCH ×3 (09:32→20:47)
[2018-07-21] MEDS: Aspirin 325 mg Enteric Coated Tablet PO SCH (09:32)
[2018-07-21] MEDS: Allopurinol 300 MG TAB PO SCH (09:32)
[2018-07-21] MEDS: Enoxaparin Sodium 40 MG/0.4 ML SYRINGE SC SCH (09:34)
[2018-07-21] MEDS: Folic Acid 1 MG TAB PO SCH (09:44)
[2018-07-21] MEDS: Tacrolimus 1 MG CAP PO SCH ×2 (09:52→20:45)
[2018-07-21] MEDS: Mycophenolate 250 MG CAP PO SCH ×2 (09:52→20:45)
[2018-07-21] MEDS: Potassium Chloride 20 MEQ TAB PO SCH (11:22)
[2018-07-21] MEDS: HumaLOG 300 UNITS/3 ML VIAL SC PRN (17:09)
[2018-07-21] MEDS: traZODone HCl 50 MG TAB PO SCH (20:46)
[2018-07-21] MEDS: traMADol HCl 50 MG TAB PO PRN (22:57)
--- NOTE | 2018-07-22 06:35 | PDOC.FM ---
- Subjective Subjective: Mr. Joseph is resting comfortably in bed, enjoying his breakfast. He reports the food has been much better since we changed his diet. - Objective Vital Signs & Weight: Vital Signs (12 hours) Temp Pulse Resp BP BP Pulse Ox 07/22/18 04:00 97.9 F 85 16 115/69 98 07/21/18 23:35 99 07/21/18 23:25 97.9 F 89 18 145/76 H 99 07/21/18 20:44 98.4 F 90 18 128/62 97 07/21/18 20:43 97 Weight Admit Weight 109.769 kg Weight 107.3 kg I&O: 07/20/18 07/21/18 07/22/18 06:59 06:59 06:59 Intake Total 2370 810 790 Output Total 3600 2300 1800 Balance -1230 -1490 -1010 Result Diagrams: 07/21/18 05:44 07/22/18 06:40 Phys Exam - Physical Examination Constitutional: NAD HEENT: moist MMs Neck: no JVD Gastrointestinal: no distention Musculoskeletal: no edema Neurological: moves all 4 limbs Psychiatric: normal affect Skin: no rash Dx/Plan (1) Altered mental status Code(s): R41.82 - ALTERED MENTAL STATUS, UNSPECIFIED Status: Acute (2) Hyponatremia Code(s): E87.1 - HYPO-OSMOLALITY AND HYPONATREMIA Status: Acute (3) Viral gastroenteritis Code(s): A08.4 - VIRAL INTESTINAL INFECTION, UNSPECIFIED Status: Acute (4) Seizures Code(s): R56.9 - UNSPECIFIED CONVULSIONS Status: Acute (5) Adrenal insufficiency Code(s): E27.40 - UNSPECIFIED ADRENOCORTICAL INSUFFICIENCY Status: Chronic (6) CKD (chronic kidney disease) stage 3, GFR 30-59 ml/min Status: Chronic (7) COPD (chronic obstructive pulmonary disease) Status: Chronic Qualifiers: COPD type: COPD with acute exacerbation Qualified Code(s): J44.1 - Chronic obstructive pulmonary disease with (acute) exacerbation (8) GERD (gastroesophageal reflux disease) Code(s): K21.9 - GASTRO-ESOPHAGEAL REFLUX DISEASE WITHOUT ESOPHAGITIS Status: Chronic (9) Hx of kidney transplant Status: Chronic (10) Hyperlipidemia Code(s): E78.5 - HYPERLIPIDEMIA, UNSPECIFIED Status: Chronic (11) Hypothyroid Code(s): E03.9 - HYPOTHYROIDISM, UNSPECIFIED Status: Chronic (12) Adrenal insufficiency Code(s): E27.40 - UNSPECIFIED ADRENOCORTICAL INSUFFICIENCY Status: Suspected - Plan Plan: AMS, likely 2/2 viral gastroenteritis with hyponatremia, improved clinical picture most consistent with viral gastroenteritis with associated hypovolemic hyponatremia. - recent head CT negative - had period of low BP, MAP 55 in ED in addition to need for IV access, L femoral line placed; BP stable - blood cx showing 1/2 gram + enterococcus from the femoral line - likely contaminant, no abx for now. Procal 0.16. Blood cultures redrawn - 1 from peripheral, 1 from line. Patient got peripheral IV access and femoral central line removed. Cath tip culture drawn as well. Results: Gram pos ana m grown from central line 1/2 cultures. No growth from the catheter tip. No growth from peripheral. Likely contaminant. Will not start abx. Hypokalemia - Will continue to monitor and replace as needed Moderate hyponatremia likely 2/2 hypovolemia, improved with IVF. - unable to get urine studies as IVF already given in ED - continue to monitor sodium, PO hydration Anemia On admission 9.1, near baseline - 9.3 on 07/19 continue to monitor - hx of folate deficiency; will continue replacement w/ folvite - worked up extensively on current and past admission, no bleeding found Adrenal insufficiency - Stress dose of steroids given then will restart home hydrocortisone CKD s/p kidney transplant - continue home tacrolimus, mycophenolate mofetil, zytiga HTN - continue home amlodipine, metoprolol, diltiazem, digoxin HFpEF, present on admission - Echo 04/2018 showed EF 60-65%, 1/3 diastolic dysfunction IDDM2 - achs accuchecks, mild SSI - continue home insulin Seizure disorder - dilantin level in therapeutic range when calculated considering albumin level - will consult with pharmacy for correct dosing/monitoring GERD - continue home protonix Gout - continue home allopurinol/colchicine HLD - continue home lipitor Neuropathy - continue home amitriptyline, gabapentin - if patient becomes altered, consider decreasing dosage Ppx: lovenox Diet: THOMAS CASTELLANOS Dispo: pending placement Addendum - Attending - Attending Attestation Date/Time: 07/22/18 1312 I personally evaluated the patient and discussed the management with Dr. Peralta I agree with the History, Examination, Assessment and Plan documented above with any addition or exceptions noted below - Patient without complaints. Wants to go home. Afebrile VSS. A/P: 1) Dehydration secondary to gastroenteritis - resolved. 2) Hyperkalemia- resolved. 3) Supratherapeutic dilantin- will restart dilantin. 4) DM- stable. 5) Deconditioning - Patient progressing with PT. Has been denied by [facility] due to insurance. Patient wanting to go home with home health/PT. Discussed with patient and concerns for his ability to be cared for at home due to his decreased strength and fall risk. Discussed pursuing another SNF and patient willing to try one more. Discussed with CM and will see if [facility] accepts his insurance.
[2018-07-22 08:10] LABS: Anion Gap 10 mmol/L (10-20); BUN (Urea Nitrogen) 7 mg/dL (8.4-25.7); Calc. Creatinine Clearance 158 mL/min (70-130); Calcium 8.4 mg/dL (7.8-10.44); Carbon Dioxide 24 mmol/L (23-31); Chloride 103 mmol/L (98-107); Estimated GFR-MDRD Greater than 90; Glucose 137 mg/dL (80-115); Potassium 4.7 mmol/L (3.5-5.1); Sodium 132 mmol/L (136-145)
[2018-07-22] MEDS: Enoxaparin Sodium 40 MG/0.4 ML SYRINGE SC SCH (09:28)
[2018-07-22] MEDS: Magnesium Oxide 400 MG TAB PO SCH ×2 (09:30→21:37)
[2018-07-22] MEDS: Folic Acid 1 MG TAB PO SCH (09:30)
[2018-07-22] MEDS: Mycophenolate 250 MG CAP PO SCH ×2 (09:30→21:38)
[2018-07-22] MEDS: Atorvastatin Calcium 10 MG TAB PO SCH (09:30)
[2018-07-22] MEDS: Loratadine 10 MG TAB PO SCH (09:30)
[2018-07-22] MEDS: Montelukast Sodium 10 mg Tablet PO SCH (09:30)
[2018-07-22] MEDS: Calcitriol 0.25 MCG CAP PO SCH (09:31)
[2018-07-22] MEDS: Aspirin 325 mg Enteric Coated Tablet PO SCH (09:31)
[2018-07-22] MEDS: Allopurinol 300 MG TAB PO SCH (09:31)
[2018-07-22] MEDS: Potassium Chloride 20 MEQ TAB PO SCH (09:31)
[2018-07-22] MEDS: Hydrocortisone 10 mg Tablet PO SCH ×2 (09:31→21:38)
[2018-07-22] MEDS: Docusate 100 MG CAP PO SCH ×2 (09:31→21:38)
[2018-07-22] MEDS: Bumetanide 1 MG TAB PO SCH (09:32)
[2018-07-22] MEDS: Gabapentin 300 MG CAP PO SCH ×2 (09:33→21:37)
[2018-07-22] MEDS: Tacrolimus 1 MG CAP PO SCH ×2 (09:34→21:38)
[2018-07-22] MEDS: Digoxin 0.125 MG TAB PO SCH (09:34)
[2018-07-22 14:02] VITALS: BMI 34.9
[2018-07-22] MEDS: traZODone HCl 50 MG TAB PO SCH (21:37)
--- NOTE | 2018-07-23 06:39 | PDOC.FM ---
- Subjective Subjective: Mr. Joseph is sleeping comfortably in bed, his reports no acute events overnight. He continues to eat well and is awaiting approval for [facility] - Objective Vital Signs & Weight: Vital Signs (12 hours) Temp Pulse Resp BP Pulse Ox 07/22/18 21:36 97.7 F 81 16 106/64 98 07/22/18 20:00 98 Weight Admit Weight 109.769 kg Weight 107.3 kg I&O: 07/21/18 07/22/18 07/23/18 06:59 06:59 06:59 Intake Total 300 514 6521 Output Total 2300 1800 Balance -1490 -1010 2120 Result Diagrams: 07/21/18 05:44 07/23/18 09:20 Phys Exam - Physical Examination Constitutional: NAD HEENT: moist MMs Neck: no JVD Gastrointestinal: no distention Musculoskeletal: no edema Neurological: moves all 4 limbs Psychiatric: normal affect Skin: no rash Dx/Plan (1) Altered mental status Code(s): R41.82 - ALTERED MENTAL STATUS, UNSPECIFIED Status: Acute (2) Hyponatremia Code(s): E87.1 - HYPO-OSMOLALITY AND HYPONATREMIA Status: Acute (3) Viral gastroenteritis Code(s): A08.4 - VIRAL INTESTINAL INFECTION, UNSPECIFIED Status: Acute (4) Seizures Code(s): R56.9 - UNSPECIFIED CONVULSIONS Status: Acute (5) Adrenal insufficiency Code(s): E27.40 - UNSPECIFIED ADRENOCORTICAL INSUFFICIENCY Status: Chronic (6) CKD (chronic kidney disease) stage 3, GFR 30-59 ml/min Status: Chronic (7) COPD (chronic obstructive pulmonary disease) Status: Chronic Qualifiers: COPD type: COPD with acute exacerbation Qualified Code(s): J44.1 - Chronic obstructive pulmonary disease with (acute) exacerbation (8) GERD (gastroesophageal reflux disease) Code(s): K21.9 - GASTRO-ESOPHAGEAL REFLUX DISEASE WITHOUT ESOPHAGITIS Status: Chronic (9) Hx of kidney transplant Status: Chronic (10) Hyperlipidemia Code(s): E78.5 - HYPERLIPIDEMIA, UNSPECIFIED Status: Chronic (11) Hypothyroid Code(s): E03.9 - HYPOTHYROIDISM, UNSPECIFIED Status: Chronic (12) Adrenal insufficiency Code(s): E27.40 - UNSPECIFIED ADRENOCORTICAL INSUFFICIENCY Status: Suspected - Plan Plan: AMS, likely 2/2 viral gastroenteritis with hyponatremia, improved clinical picture most consistent with viral gastroenteritis with associated hypovolemic hyponatremia. - recent head CT negative - had period of low BP, MAP 55 in ED in addition to need for IV access, L femoral line placed; BP stable - blood cx showing 1/2 gram + enterococcus from the femoral line - likely contaminant, no abx for now. Procal 0.16. Blood cultures redrawn - 1 from peripheral, 1 from line. Patient got peripheral IV access and femoral central line removed. Cath tip culture drawn as well. Results: Gram pos ana m grown from central line 1/2 cultures. No growth from the catheter tip. No growth from peripheral. Likely contaminant. Will not start abx. Hypokalemia - Will continue to monitor and replace as needed Moderate hyponatremia likely 2/2 hypovolemia, improved with IVF. - unable to get urine studies as IVF already given in ED - continue to monitor sodium, PO hydration Anemia On admission 9.1, near baseline - 9.3 on 07/19 continue to monitor - hx of folate deficiency; will continue replacement w/ folvite - worked up extensively on current and past admission, no bleeding found Adrenal insufficiency - Stress dose of steroids given then will restart home hydrocortisone CKD s/p kidney transplant - continue home tacrolimus, mycophenolate mofetil, zytiga HTN - continue home amlodipine, metoprolol, diltiazem, digoxin HFpEF, present on admission - Echo 04/2018 showed EF 60-65%, 1/3 diastolic dysfunction IDDM2 - achs accuchecks, mild SSI - continue home insulin Seizure disorder - dilantin level in therapeutic range when calculated considering albumin level - will consult with pharmacy for correct dosing/monitoring GERD - continue home protonix Gout - continue home allopurinol/colchicine HLD - continue home lipitor Neuropathy - continue home amitriptyline, gabapentin - if patient becomes altered, consider decreasing dosage Ppx: lovenox Diet: CCTHOMAS Dispo: pending placement Addendum - Attending - Attending Attestation Date/Time: 07/23/181813 I personally evaluated the patient and discussed the management with Dr. Peralta I agree with the History, Examination, Assessment and Plan documented above with any addition or exceptions noted below- Patinet denies any complaints. Afebrile. VSS. A/P: 1) AMS- resolved. 2) Seizure d/o- restart dilantin as his level has finally decreased to therapeutc range. 3) Deconditioning- referrals sent to [facility] and [facility]. Awaiting insurance approval. Continue PT/OT.
[2018-07-23] MEDS: Potassium Chloride 20 MEQ TAB PO SCH (09:44)
[2018-07-23] MEDS: Mycophenolate 250 MG CAP PO SCH ×2 (09:45→20:01)
[2018-07-23] MEDS: Folic Acid 1 MG TAB PO SCH (09:45)
[2018-07-23] MEDS: Atorvastatin Calcium 10 MG TAB PO SCH (09:46)
[2018-07-23] MEDS: Montelukast Sodium 10 mg Tablet PO SCH (09:46)
[2018-07-23] MEDS: Aspirin 325 mg Enteric Coated Tablet PO SCH (09:46)
[2018-07-23] MEDS: Tacrolimus 1 MG CAP PO SCH ×2 (09:46→20:01)
[2018-07-23] MEDS: Calcitriol 0.25 MCG CAP PO SCH (09:46)
[2018-07-23] MEDS: Hydrocortisone 10 mg Tablet PO SCH ×2 (09:46→20:01)
[2018-07-23] MEDS: Bumetanide 1 MG TAB PO SCH (09:47)
[2018-07-23] MEDS: Magnesium Oxide 400 MG TAB PO SCH ×2 (09:47→20:01)
[2018-07-23] MEDS: Loratadine 10 MG TAB PO SCH (09:47)
[2018-07-23] MEDS: Allopurinol 300 MG TAB PO SCH (09:47)
[2018-07-23] MEDS: Gabapentin 300 MG CAP PO SCH ×2 (09:48→20:01)
[2018-07-23] MEDS: Digoxin 0.125 MG TAB PO SCH (09:48)
[2018-07-23] MEDS: Enoxaparin Sodium 40 MG/0.4 ML SYRINGE SC SCH (09:48)
[2018-07-23] MEDS: Docusate 100 MG CAP PO SCH ×2 (09:48→19:45)
[2018-07-23 10:01] LABS: Anion Gap 11 mmol/L (10-20); BUN (Urea Nitrogen) 9 mg/dL (8.4-25.7); Calc. Creatinine Clearance 158 mL/min (70-130); Calcium 8.6 mg/dL (7.8-10.44); Carbon Dioxide 25 mmol/L (23-31); Chloride 102 mmol/L (98-107); Estimated GFR-MDRD Greater than 90; Glucose 145 mg/dL (80-115); Potassium 4.5 mmol/L (3.5-5.1); Sodium 133 mmol/L (136-145)
[2018-07-23] MEDS: HumaLOG 300 UNITS/3 ML VIAL SC PRN (17:29)
[2018-07-23] MEDS: traZODone HCl 50 MG TAB PO SCH (20:01)
[2018-07-23] MEDS: traMADol HCl 50 MG TAB PO PRN (20:02)
[2018-07-23] MEDS: Acetaminophen 325 MG TAB PO PRN (20:02)
[2018-07-23] MEDS ORDERED: Phenytoin 125 MG/5 ML UDCUP PO SCH (21:00)
--- NOTE | 2018-07-24 06:45 | PDOC.FM ---
- Subjective Subjective: Mr. Joseph is resting comfortably in bed, he reports strange sensations in his feet. similar to in the past, for which he takes gabapentin. - Objective Vital Signs & Weight: Vital Signs (12 hours) Temp Pulse Resp BP Pulse Ox 07/23/18 20:00 97.5 F L 90 18 106/63 98 Weight Admit Weight 109.769 kg Weight 107.3 kg I&O: 07/22/18 07/23/18 07/24/18 06:59 06:59 06:59 Intake Total 790 2120 2610 Output Total 1800 Balance -1010 2120 2610 Result Diagrams: 07/21/18 05:44 07/23/18 09:20 Phys Exam - Physical Examination Constitutional: NAD HEENT: moist MMs Neck: no JVD Gastrointestinal: no distention Musculoskeletal: no edema, pulses present Neurological: moves all 4 limbs Psychiatric: normal affect Skin: no rash Dx/Plan (1) Altered mental status Code(s): R41.82 - ALTERED MENTAL STATUS, UNSPECIFIED Status: Acute (2) Hyponatremia Code(s): E87.1 - HYPO-OSMOLALITY AND HYPONATREMIA Status: Acute (3) Viral gastroenteritis Code(s): A08.4 - VIRAL INTESTINAL INFECTION, UNSPECIFIED Status: Acute (4) Seizures Code(s): R56.9 - UNSPECIFIED CONVULSIONS Status: Acute (5) Adrenal insufficiency Code(s): E27.40 - UNSPECIFIED ADRENOCORTICAL INSUFFICIENCY Status: Chronic (6) CKD (chronic kidney disease) stage 3, GFR 30-59 ml/min Status: Chronic (7) COPD (chronic obstructive pulmonary disease) Status: Chronic Qualifiers: COPD type: COPD with acute exacerbation Qualified Code(s): J44.1 - Chronic obstructive pulmonary disease with (acute) exacerbation (8) GERD (gastroesophageal reflux disease) Code(s): K21.9 - GASTRO-ESOPHAGEAL REFLUX DISEASE WITHOUT ESOPHAGITIS Status: Chronic (9) Hx of kidney transplant Status: Chronic (10) Hyperlipidemia Code(s): E78.5 - HYPERLIPIDEMIA, UNSPECIFIED Status: Chronic (11) Hypothyroid Code(s): E03.9 - HYPOTHYROIDISM, UNSPECIFIED Status: Chronic (12) Adrenal insufficiency Code(s): E27.40 - UNSPECIFIED ADRENOCORTICAL INSUFFICIENCY Status: Suspected - Plan Plan: AMS, likely 2/2 viral gastroenteritis with hyponatremia, improved clinical picture most consistent with viral gastroenteritis with associated hypovolemic hyponatremia. - recent head CT negative - had period of low BP, MAP 55 in ED in addition to need for IV access, L femoral line placed; BP stable - blood cx showing 1/2 gram + enterococcus from the femoral line - likely contaminant, no abx for now. Procal 0.16. Blood cultures redrawn - 1 from peripheral, 1 from line. Patient got peripheral IV access and femoral central line removed. Cath tip culture drawn as well. Results: Gram pos ana m grown from central line 1/2 cultures. No growth from the catheter tip. No growth from peripheral. Likely contaminant. Will not start abx. Hypokalemia - Will continue to monitor and replace as needed Moderate hyponatremia likely 2/2 hypovolemia, improved with IVF. - unable to get urine studies as IVF already given in ED - continue to monitor sodium, PO hydration Anemia On admission 9.1, near baseline - 9.3 on 07/19 continue to monitor - hx of folate deficiency; will continue replacement w/ folvite - worked up extensively on current and past admission, no bleeding found Adrenal insufficiency - Stress dose of steroids given then will restart home hydrocortisone CKD s/p kidney transplant - continue home tacrolimus, mycophenolate mofetil, zytiga HTN - continue home amlodipine, metoprolol, diltiazem, digoxin HFpEF, present on admission - Echo 04/2018 showed EF 60-65%, 1/3 diastolic dysfunction IDDM2 - achs accuchecks, mild SSI - continue home insulin Seizure disorder - dilantin level in therapeutic range when calculated considering albumin level - will consult with pharmacy for correct dosing/monitoring GERD - continue home protonix Gout - continue home allopurinol/colchicine HLD - continue home lipitor Neuropathy - continue home amitriptyline, gabapentin - if patient becomes altered, consider decreasing dosage Ppx: lovenox Diet: THOMAS CASTELLANOS Dispo: pending placement
[2018-07-24] MEDS: Mycophenolate 250 MG CAP PO SCH ×2 (08:48→21:04)
[2018-07-24] MEDS: Hydrocortisone 10 mg Tablet PO SCH ×2 (08:48→21:03)
[2018-07-24] MEDS: Bumetanide 1 MG TAB PO SCH (08:49)
[2018-07-24] MEDS: Montelukast Sodium 10 mg Tablet PO SCH (08:49)
[2018-07-24 08:51] LABS: Anion Gap 11 mmol/L (10-20); BUN (Urea Nitrogen) 11 mg/dL (8.4-25.7); Calc. Creatinine Clearance 141 mL/min (70-130); Calcium 8.2 mg/dL (7.8-10.44); Carbon Dioxide 24 mmol/L (23-31); Chloride 103 mmol/L (98-107); Estimated GFR-MDRD Greater than 90; Glucose 190 mg/dL (80-115); Potassium 4.5 mmol/L (3.5-5.1); Sodium 133 mmol/L (136-145)
[2018-07-24] MEDS: Magnesium Oxide 400 MG TAB PO SCH ×2 (08:51→21:04)
[2018-07-24] MEDS: Allopurinol 300 MG TAB PO SCH (08:51)
[2018-07-24] MEDS: Digoxin 0.125 MG TAB PO SCH (08:51)
[2018-07-24] MEDS: Folic Acid 1 MG TAB PO SCH (08:51)
[2018-07-24] MEDS: Tacrolimus 1 MG CAP PO SCH ×2 (08:51→21:03)
[2018-07-24] MEDS: Aspirin 325 mg Enteric Coated Tablet PO SCH (08:52)
[2018-07-24] MEDS: Gabapentin 300 MG CAP PO SCH ×2 (08:52→21:03)
[2018-07-24] MEDS: Potassium Chloride 20 MEQ TAB PO SCH (08:52)
[2018-07-24] MEDS: Loratadine 10 MG TAB PO SCH (08:52)
[2018-07-24] MEDS: Docusate 100 MG CAP PO SCH ×2 (08:54→21:03)
[2018-07-24] MEDS: Enoxaparin Sodium 40 MG/0.4 ML SYRINGE SC SCH (08:54)
[2018-07-24] MEDS: Atorvastatin Calcium 10 MG TAB PO SCH (08:54)
[2018-07-24] MEDS: Calcitriol 0.25 MCG CAP PO SCH (08:59)
[2018-07-24] MEDS: Ondansetron ODT 4 MG TAB PO PRN (12:19)
[2018-07-24] MEDS: HumaLOG 300 UNITS/3 ML VIAL SC PRN ×2 (12:21→17:14)
[2018-07-24] MEDS: Acetaminophen 325 MG TAB PO PRN ×2 (13:48→21:24)
[2018-07-24] MEDS: traMADol HCl 50 MG TAB PO PRN ×2 (14:33→21:22)
[2018-07-24] MEDS: traZODone HCl 50 MG TAB PO SCH (21:04)
[2018-07-24] MEDS ORDERED: Calcium Carbonate 500 MG ChewTAB PO SCH (22:00)
[2018-07-25] MEDS: HumaLOG 300 UNITS/3 ML VIAL SC PRN ×2 (05:57→15:42)
--- NOTE | 2018-07-25 06:56 | PDOC.FM ---
- Subjective Subjective: Mr. Joseph is resting comfortably in bed, denies fever/reports hunger - Objective Vital Signs & Weight: Vital Signs (12 hours) Temp Pulse Resp BP Pulse Ox 07/24/18 20:00 97.8 F 88 18 131/70 99 07/24/18 19:43 99 Weight Admit Weight 109.769 kg Weight 107.3 kg I&O: 07/23/18 07/24/18 07/25/18 06:59 06:59 06:59 Intake Total 2120 2610 2700 Balance 2120 2610 2700 Result Diagrams: 07/21/18 05:44 07/24/18 08:21 Phys Exam - Physical Examination Constitutional: NAD HEENT: moist MMs Neck: no JVD Gastrointestinal: no distention Musculoskeletal: no edema Neurological: moves all 4 limbs Psychiatric: normal affect Skin: no rash Dx/Plan (1) Altered mental status Code(s): R41.82 - ALTERED MENTAL STATUS, UNSPECIFIED Status: Acute (2) Hyponatremia Code(s): E87.1 - HYPO-OSMOLALITY AND HYPONATREMIA Status: Acute (3) Viral gastroenteritis Code(s): A08.4 - VIRAL INTESTINAL INFECTION, UNSPECIFIED Status: Acute (4) Seizures Code(s): R56.9 - UNSPECIFIED CONVULSIONS Status: Acute (5) Adrenal insufficiency Code(s): E27.40 - UNSPECIFIED ADRENOCORTICAL INSUFFICIENCY Status: Chronic (6) CKD (chronic kidney disease) stage 3, GFR 30-59 ml/min Status: Chronic (7) COPD (chronic obstructive pulmonary disease) Status: Chronic Qualifiers: COPD type: COPD with acute exacerbation Qualified Code(s): J44.1 - Chronic obstructive pulmonary disease with (acute) exacerbation (8) GERD (gastroesophageal reflux disease) Code(s): K21.9 - GASTRO-ESOPHAGEAL REFLUX DISEASE WITHOUT ESOPHAGITIS Status: Chronic (9) Hx of kidney transplant Status: Chronic (10) Hyperlipidemia Code(s): E78.5 - HYPERLIPIDEMIA, UNSPECIFIED Status: Chronic (11) Hypothyroid Code(s): E03.9 - HYPOTHYROIDISM, UNSPECIFIED Status: Chronic (12) Adrenal insufficiency Code(s): E27.40 - UNSPECIFIED ADRENOCORTICAL INSUFFICIENCY Status: Suspected - Plan Plan: AMS, likely 2/2 viral gastroenteritis with hyponatremia, improved clinical picture most consistent with viral gastroenteritis with associated hypovolemic hyponatremia. - recent head CT negative - had period of low BP, MAP 55 in ED in addition to need for IV access, L femoral line placed; BP stable - blood cx showing 1/2 gram + enterococcus from the femoral line - likely contaminant, no abx for now. Procal 0.16. Blood cultures redrawn - 1 from peripheral, 1 from line. Patient got peripheral IV access and femoral central line removed. Cath tip culture drawn as well. Results: Gram pos ana m grown from central line 1/2 cultures. No growth from the catheter tip. No growth from peripheral. Likely contaminant. Will not start abx. Hypokalemia - Will continue to monitor and replace as needed Moderate hyponatremia likely 2/2 hypovolemia, improved with IVF. - unable to get urine studies as IVF already given in ED - continue to monitor sodium, PO hydration Anemia On admission 9.1, near baseline - 9.3 on 07/19 continue to monitor - hx of folate deficiency; will continue replacement w/ folvite - worked up extensively on current and past admission, no bleeding found Adrenal insufficiency - Stress dose of steroids given then will restart home hydrocortisone CKD s/p kidney transplant - continue home tacrolimus, mycophenolate mofetil, zytiga HTN - continue home amlodipine, metoprolol, diltiazem, digoxin HFpEF, present on admission - Echo 04/2018 showed EF 60-65%, 1/3 diastolic dysfunction IDDM2 - achs accuchecks, mild SSI - continue home insulin Seizure disorder - dilantin level in therapeutic range when calculated considering albumin level - will consult with pharmacy for correct dosing/monitoring GERD - continue home protonix Gout - continue home allopurinol/colchicine HLD - continue home lipitor Neuropathy - continue home amitriptyline, gabapentin - if patient becomes altered, consider decreasing dosage Ppx: lovenox Diet: CC, HH Dispo: pending placement
[2018-07-25 08:06] LABS: Anion Gap 11 mmol/L (10-20); BUN (Urea Nitrogen) 10 mg/dL (8.4-25.7); Calc. Creatinine Clearance 145 mL/min (70-130); Calcium 8.4 mg/dL (7.8-10.44); Carbon Dioxide 23 mmol/L (23-31); Chloride 103 mmol/L (98-107); Estimated GFR-MDRD Greater than 90; Glucose 146 mg/dL (80-115); Potassium 4.4 mmol/L (3.5-5.1); Sodium 133 mmol/L (136-145)
[2018-07-25] MEDS: Enoxaparin Sodium 40 MG/0.4 ML SYRINGE SC SCH (08:21)
[2018-07-25] MEDS: Docusate 100 MG CAP PO SCH ×2 (08:21→21:58)
[2018-07-25] MEDS: Bumetanide 1 MG TAB PO SCH (08:22)
[2018-07-25] MEDS: Hydrocortisone 10 mg Tablet PO SCH ×2 (08:22→21:50)
[2018-07-25] MEDS: Calcitriol 0.25 MCG CAP PO SCH (08:23)
[2018-07-25] MEDS: Calcium Carbonate 500 MG ChewTAB PO SCH ×2 (08:23→21:49)
[2018-07-25] MEDS: Montelukast Sodium 10 mg Tablet PO SCH (08:23)
[2018-07-25] MEDS: Tacrolimus 1 MG CAP PO SCH ×2 (08:23→21:50)
[2018-07-25] MEDS: Loratadine 10 MG TAB PO SCH (08:24)
[2018-07-25] MEDS: Potassium Chloride 20 MEQ TAB PO SCH (08:24)
[2018-07-25] MEDS: Aspirin 325 mg Enteric Coated Tablet PO SCH (08:24)
[2018-07-25] MEDS: Allopurinol 300 MG TAB PO SCH (08:24)
[2018-07-25] MEDS: Atorvastatin Calcium 10 MG TAB PO SCH (08:25)
[2018-07-25] MEDS: Folic Acid 1 MG TAB PO SCH (08:25)
[2018-07-25] MEDS: Magnesium Oxide 400 MG TAB PO SCH ×2 (08:25→21:51)
[2018-07-25] MEDS: Mycophenolate 250 MG CAP PO SCH ×2 (08:25→21:51)
[2018-07-25] MEDS: Gabapentin 400 MG CAP PO SCH (08:25)
[2018-07-25] MEDS: Digoxin 0.125 MG TAB PO SCH (08:25)
[2018-07-25] MEDS: traMADol HCl 50 MG TAB PO PRN (17:51)
[2018-07-25] MEDS: traZODone HCl 50 MG TAB PO SCH (21:49)
[2018-07-25] MEDS: Gabapentin 300 MG CAP PO SCH (21:50)
[2018-07-26] MEDS: HumaLOG 300 UNITS/3 ML VIAL SC PRN ×2 (06:02→18:06)
--- NOTE | 2018-07-26 06:54 | PDOC.FM ---
- Subjective Subjective: Mr. Joseph is resting comfortably in bed, he denies fever/chills, sob - Objective Vital Signs & Weight: Vital Signs (12 hours) Temp Pulse Resp BP Pulse Ox 07/25/18 21:30 97.8 F 93 18 122/66 98 07/25/18 19:43 98 Weight Admit Weight 109.769 kg Weight 107.3 kg I&O: 07/24/18 07/25/18 07/26/18 06:59 06:59 06:59 Intake Total 2610 2700 2710 Balance 2610 2700 2710 Result Diagrams: 07/21/18 05:44 07/26/18 06:44 Phys Exam - Physical Examination Constitutional: NAD HEENT: moist MMs Neck: no JVD Gastrointestinal: no distention Musculoskeletal: no edema Neurological: moves all 4 limbs Psychiatric: normal affect Skin: no rash Dx/Plan (1) Altered mental status Code(s): R41.82 - ALTERED MENTAL STATUS, UNSPECIFIED Status: Acute (2) Hyponatremia Code(s): E87.1 - HYPO-OSMOLALITY AND HYPONATREMIA Status: Acute (3) Viral gastroenteritis Code(s): A08.4 - VIRAL INTESTINAL INFECTION, UNSPECIFIED Status: Acute (4) Seizures Code(s): R56.9 - UNSPECIFIED CONVULSIONS Status: Acute (5) Adrenal insufficiency Code(s): E27.40 - UNSPECIFIED ADRENOCORTICAL INSUFFICIENCY Status: Chronic (6) CKD (chronic kidney disease) stage 3, GFR 30-59 ml/min Status: Chronic (7) COPD (chronic obstructive pulmonary disease) Status: Chronic Qualifiers: COPD type: COPD with acute exacerbation Qualified Code(s): J44.1 - Chronic obstructive pulmonary disease with (acute) exacerbation (8) GERD (gastroesophageal reflux disease) Code(s): K21.9 - GASTRO-ESOPHAGEAL REFLUX DISEASE WITHOUT ESOPHAGITIS Status: Chronic (9) Hx of kidney transplant Status: Chronic (10) Hyperlipidemia Code(s): E78.5 - HYPERLIPIDEMIA, UNSPECIFIED Status: Chronic (11) Hypothyroid Code(s): E03.9 - HYPOTHYROIDISM, UNSPECIFIED Status: Chronic (12) Adrenal insufficiency Code(s): E27.40 - UNSPECIFIED ADRENOCORTICAL INSUFFICIENCY Status: Suspected - Plan Plan: AMS, likely 2/2 viral gastroenteritis with hyponatremia, improved clinical picture most consistent with viral gastroenteritis with associated hypovolemic hyponatremia. - recent head CT negative - had period of low BP, MAP 55 in ED in addition to need for IV access, L femoral line placed; BP stable - blood cx showing 1/2 gram + enterococcus from the femoral line - likely contaminant, no abx for now. Procal 0.16. Blood cultures redrawn - 1 from peripheral, 1 from line. Patient got peripheral IV access and femoral central line removed. Cath tip culture drawn as well. Results: Gram pos ana m grown from central line 1/2 cultures. No growth from the catheter tip. No growth from peripheral. Likely contaminant. Will not start abx. Hypokalemia - Will continue to monitor and replace as needed Moderate hyponatremia likely 2/2 hypovolemia, improved with IVF. - unable to get urine studies as IVF already given in ED - continue to monitor sodium, PO hydration Anemia On admission 9.1, near baseline - 9.3 on 07/19 continue to monitor - hx of folate deficiency; will continue replacement w/ folvite - worked up extensively on current and past admission, no bleeding found Adrenal insufficiency - Stress dose of steroids given then will restart home hydrocortisone CKD s/p kidney transplant - continue home tacrolimus, mycophenolate mofetil, zytiga HTN - continue home amlodipine, metoprolol, diltiazem, digoxin HFpEF, present on admission - Echo 04/2018 showed EF 60-65%, 1/3 diastolic dysfunction IDDM2 - achs accuchecks, mild SSI - continue home insulin Seizure disorder - dilantin level in therapeutic range when calculated considering albumin level - will consult with pharmacy for correct dosing/monitoring GERD - continue home protonix Gout - continue home allopurinol/colchicine HLD - continue home lipitor Neuropathy - continue home amitriptyline, gabapentin - if patient becomes altered, consider decreasing dosage Ppx: lovenox Diet: CC, HH Dispo: pending placement
[2018-07-26 07:06] LABS: Anion Gap 16 mmol/L (10-20); BUN (Urea Nitrogen) 10 mg/dL (8.4-25.7); Calc. Creatinine Clearance 143 mL/min (70-130); Carbon Dioxide 17 mmol/L (23-31); Chloride 107 mmol/L (98-107); Estimated GFR-MDRD Greater than 90; Glucose 204 mg/dL (80-115); Potassium 5.9 mmol/L (3.5-5.1); Sodium 134 mmol/L (136-145)
[2018-07-26] MEDS: Calcium Carbonate 500 MG ChewTAB PO SCH ×2 (08:18→20:50)
[2018-07-26] MEDS: Mycophenolate 250 MG CAP PO SCH ×2 (08:23→20:55)
[2018-07-26] MEDS: Potassium Chloride 20 MEQ TAB PO SCH (08:23)
[2018-07-26] MEDS: Allopurinol 300 MG TAB PO SCH (08:24)
[2018-07-26] MEDS: Montelukast Sodium 10 mg Tablet PO SCH (08:24)
[2018-07-26] MEDS: Aspirin 325 mg Enteric Coated Tablet PO SCH (08:24)
[2018-07-26] MEDS: Calcitriol 0.25 MCG CAP PO SCH (08:24)
[2018-07-26] MEDS: Magnesium Oxide 400 MG TAB PO SCH ×2 (08:24→20:51)
[2018-07-26] MEDS: Gabapentin 400 MG CAP PO SCH (08:24)
[2018-07-26] MEDS: Loratadine 10 MG TAB PO SCH (08:24)
[2018-07-26] MEDS: Folic Acid 1 MG TAB PO SCH (08:24)
[2018-07-26] MEDS: Digoxin 0.125 MG TAB PO SCH (08:24)
[2018-07-26] MEDS: Atorvastatin Calcium 10 MG TAB PO SCH (08:25)
[2018-07-26] MEDS: Hydrocortisone 10 mg Tablet PO SCH ×2 (08:25→20:50)
[2018-07-26] MEDS: Docusate 100 MG CAP PO SCH ×2 (08:26→20:50)
[2018-07-26] MEDS: Tacrolimus 1 MG CAP PO SCH ×2 (08:26→20:51)
[2018-07-26] MEDS: Enoxaparin Sodium 40 MG/0.4 ML SYRINGE SC SCH (08:26)
[2018-07-26] MEDS: Bumetanide 1 MG TAB PO SCH (08:27)
--- NOTE | 2018-07-26 10:13 | PRG ---
DATE OF SERVICE: ADDENDUM: Please see note from Dr. Peralta, for which I agree. The patient is here initially with some altered mental status that seems to have improved, but has had a lot of other issues, came in initially with diarrhea and felt like he has been intermittently having diarrhea and constipation for a while, had hyponatremia needed fluids improved, and a lot of electrolyte abnormalities that are improved. Chronic adrenal insufficiency likely from medications for the kidney transplant and bottom line here is just some general deconditioning and weakness and the plan is to hopefully be able to discharge him to a some type of rehab facility or jail facility and we were waiting on that placement, and otherwise, doing physical therapy here in the meantime. Job ID: [id number]
--- NOTE | 2018-07-26 11:10 | PRG ---
DATE OF SERVICE: ADDENDUM: The patient was seen, evaluated, and discussed with the residents. Please see Dr. Peralta's note, for which I concur. Really no change. His diarrhea is better. He is back to normal mental status, feels better, and we are really just trying to get him placed to go to rehab just to get him strengthen from a deconditioning standpoint and we will continue same medications as everything otherwise has been stable. Job ID: [id number]
--- NOTE | 2018-07-26 14:36 | PRG ---
DATE OF SERVICE: 07/26/2018 ADDENDUM: This is an addendum to the note of Dr. Jesús Peralta. Mr. Joseph is a 68-year-old man, who was admitted with a hypovolemic hyponatremia, which has since mostly been corrected. This was initiated by likely viral gastroenteritis, from which he is making a good recovery. Job ID: [id number]
--- NOTE | 2018-07-26 17:27 | EKG ---
Test Reason : Blood Pressure : / mmHG Vent. Rate : 096 BPM Atrial Rate : 096 BPM P-R Int : 208 ms QRS Dur : 084 ms QT Int : 340 ms P-R-T Axes : 067 031 -13 degrees QTc Int : 429 ms Normal sinus rhythm Possible Inferior infarct , age undetermined Abnormal ECG When compared with ECG of 13-JUL-2018 21:45, Nonspecific T wave abnormality, improved in Lateral leads QT has lengthened Confirmed by SARAH ROMERO, . SMarin (4) on 07/26/2018 5:27:01 PM Referred By: JAMES Confirmed By:DR. Barney SMITH MD
[2018-07-26] MEDS: Ondansetron ODT 4 MG TAB PO PRN (19:32)
[2018-07-26] MEDS: Gabapentin 300 MG CAP PO SCH (20:50)
[2018-07-26] MEDS: traZODone HCl 50 MG TAB PO SCH (20:52)
[2018-07-26] MEDS: Phenytoin 125 MG/5 ML UDCUP PO SCH (20:56)
[2018-07-26] MEDS: traMADol HCl 50 MG TAB PO PRN (21:01)
[2018-07-27] MEDS: HumaLOG 300 UNITS/3 ML VIAL SC PRN (05:44)
--- NOTE | 2018-07-27 07:39 | PDOC.FM ---
- Subjective Subjective: Mr. Joseph is sitting up in bed, feeling well. ready to go, peer to peer yesterday denied placement 2/2 no PT/OT records - Objective Vital Signs & Weight: Vital Signs (12 hours) Temp Pulse Resp BP Pulse Ox 07/26/18 19:41 98.5 F 92 18 112/57 L 96 07/26/18 19:40 96 Weight Admit Weight 109.769 kg Weight 107.3 kg I&O: 07/26/18 07/27/18 07/28/18 06:59 06:59 06:59 Intake Total 2710 480 Output Total 250 Balance 2710 230 Result Diagrams: 07/21/18 05:44 07/27/18 07:21 Phys Exam - Physical Examination Constitutional: NAD HEENT: moist MMs Neck: no JVD Gastrointestinal: no distention Musculoskeletal: no edema Neurological: moves all 4 limbs Psychiatric: normal affect Skin: no rash Dx/Plan (1) Altered mental status Code(s): R41.82 - ALTERED MENTAL STATUS, UNSPECIFIED Status: Acute (2) Hyponatremia Code(s): E87.1 - HYPO-OSMOLALITY AND HYPONATREMIA Status: Acute (3) Viral gastroenteritis Code(s): A08.4 - VIRAL INTESTINAL INFECTION, UNSPECIFIED Status: Acute (4) Seizures Code(s): R56.9 - UNSPECIFIED CONVULSIONS Status: Acute (5) Adrenal insufficiency Code(s): E27.40 - UNSPECIFIED ADRENOCORTICAL INSUFFICIENCY Status: Chronic (6) CKD (chronic kidney disease) stage 3, GFR 30-59 ml/min Status: Chronic (7) COPD (chronic obstructive pulmonary disease) Status: Chronic Qualifiers: COPD type: COPD with acute exacerbation Qualified Code(s): J44.1 - Chronic obstructive pulmonary disease with (acute) exacerbation (8) GERD (gastroesophageal reflux disease) Code(s): K21.9 - GASTRO-ESOPHAGEAL REFLUX DISEASE WITHOUT ESOPHAGITIS Status: Chronic (9) Hx of kidney transplant Status: Chronic (10) Hyperlipidemia Code(s): E78.5 - HYPERLIPIDEMIA, UNSPECIFIED Status: Chronic (11) Hypothyroid Code(s): E03.9 - HYPOTHYROIDISM, UNSPECIFIED Status: Chronic (12) Adrenal insufficiency Code(s): E27.40 - UNSPECIFIED ADRENOCORTICAL INSUFFICIENCY Status: Suspected - Plan Plan: AMS, likely 2/2 viral gastroenteritis with hyponatremia, improved clinical picture most consistent with viral gastroenteritis with associated hypovolemic hyponatremia. - recent head CT negative - had period of low BP, MAP 55 in ED in addition to need for IV access, L femoral line placed; BP stable - blood cx showing 1/2 gram + enterococcus from the femoral line - likely contaminant, no abx for now. Procal 0.16. Blood cultures redrawn - 1 from peripheral, 1 from line. Patient got peripheral IV access and femoral central line removed. Cath tip culture drawn as well. Results: Gram pos ana m grown from central line 1/2 cultures. No growth from the catheter tip. No growth from peripheral. Likely contaminant. Will not start abx. Hypokalemia - Will continue to monitor and replace as needed Moderate hyponatremia likely 2/2 hypovolemia, improved with IVF. - unable to get urine studies as IVF already given in ED - continue to monitor sodium, PO hydration Anemia On admission 9.1, near baseline - 9.3 on 07/19 continue to monitor - hx of folate deficiency; will continue replacement w/ folvite - worked up extensively on current and past admission, no bleeding found Adrenal insufficiency - Stress dose of steroids given then will restart home hydrocortisone CKD s/p kidney transplant - continue home tacrolimus, mycophenolate mofetil, zytiga HTN - continue home amlodipine, metoprolol, diltiazem, digoxin HFpEF, present on admission - Echo 04/2018 showed EF 60-65%, 1/3 diastolic dysfunction IDDM2 - achs accuchecks, mild SSI - continue home insulin Seizure disorder - dilantin level in therapeutic range when calculated considering albumin level - will consult with pharmacy for correct dosing/monitoring GERD - continue home protonix Gout - continue home allopurinol/colchicine HLD - continue home lipitor Neuropathy - continue home amitriptyline, gabapentin - if patient becomes altered, consider decreasing dosage Ppx: lovenox Diet: CC, HH Dispo: denied from placement 07/24 to no PT/OT notes indicating need for therapy. will follow up
[2018-07-27 07:50] LABS: Anion Gap 13 mmol/L (10-20); BUN (Urea Nitrogen) 9 mg/dL (8.4-25.7); Calc. Creatinine Clearance 158 mL/min (70-130); Calcium 8.5 mg/dL (7.8-10.44); Carbon Dioxide 21 mmol/L (23-31); Chloride 104 mmol/L (98-107); Estimated GFR-MDRD Greater than 90; Glucose 159 mg/dL (80-115); Potassium 4.8 mmol/L (3.5-5.1); Sodium 133 mmol/L (136-145)
[2018-07-27] MEDS: Calcium Carbonate 500 MG ChewTAB PO SCH ×2 (08:42→20:51)
[2018-07-27] MEDS: Calcitriol 0.25 MCG CAP PO SCH (08:43)
[2018-07-27] MEDS: Gabapentin 400 MG CAP PO SCH (08:43)
[2018-07-27] MEDS: Magnesium Oxide 400 MG TAB PO SCH ×2 (08:43→20:50)
[2018-07-27] MEDS: Folic Acid 1 MG TAB PO SCH (08:43)
[2018-07-27] MEDS: Allopurinol 300 MG TAB PO SCH (08:43)
[2018-07-27] MEDS: Montelukast Sodium 10 mg Tablet PO SCH (08:43)
[2018-07-27] MEDS: Atorvastatin Calcium 10 MG TAB PO SCH (08:44)
[2018-07-27] MEDS: Loratadine 10 MG TAB PO SCH (08:44)
[2018-07-27] MEDS: Digoxin 0.125 MG TAB PO SCH (08:44)
[2018-07-27] MEDS: Docusate 100 MG CAP PO SCH ×2 (08:45→20:42)
[2018-07-27] MEDS: Aspirin 325 mg Enteric Coated Tablet PO SCH (08:45)
[2018-07-27] MEDS: Potassium Chloride 20 MEQ TAB PO SCH (08:45)
[2018-07-27] MEDS: Phenytoin 125 MG/5 ML UDCUP PO SCH ×2 (08:46→20:52)
[2018-07-27] MEDS: Bumetanide 1 MG TAB PO SCH (08:46)
[2018-07-27] MEDS: Tacrolimus 1 MG CAP PO SCH ×2 (08:47→20:50)
[2018-07-27] MEDS: Enoxaparin Sodium 40 MG/0.4 ML SYRINGE SC SCH (08:47)
[2018-07-27] MEDS: Mycophenolate 250 MG CAP PO SCH ×2 (08:51→20:51)
[2018-07-27] MEDS: Hydrocortisone 10 mg Tablet PO SCH ×2 (08:51→20:51)
--- NOTE | 2018-07-27 13:08 | PRG ---
DATE OF SERVICE: 07/27/2018 Mr. Joseph is resting quietly in bed, in no distress. We are still awaiting placement. Job ID: [id number]
[2018-07-27] MEDS: Benzonatate 100 MG CAP PO PRN ×2 (15:39→21:10)
[2018-07-27] MEDS: traMADol HCl 50 MG TAB PO PRN ×2 (15:39→21:09)
[2018-07-27] MEDS: Ondansetron ODT 4 MG TAB SL PRN (15:40)
[2018-07-27] MEDS ORDERED: Methyl Salicylate/Menthol 85 GM TUBE TOP PRN (17:03)
[2018-07-27] MEDS: Gabapentin 300 MG CAP PO SCH (20:50)
[2018-07-27] MEDS: traZODone HCl 50 MG TAB PO SCH (20:51)
[2018-07-27 22:16] LABS: Band 3 % (5-11); Eosinophils 2 % (0-10); Hemoglobin 8.8 g/dL (14.0-18.0); Lymphocytes 37 % (21-51); MDiff Complete? YES; Mean Corpuscular HGB CONC 32.1 g/dL (32.0-36.0); Mean Corpuscular Hemoglobin 31.6 pg (27.0-31.0); Mean Corpuscular Volume 98.5 fL (78.0-98.0); Mean Platelet Volume 6.7 fL (7.4-10.4); Monocytes 14 % (0-10); Neutrophil 44 % (42-75); Platelet Count 308 thou/uL (130-400); RBC Distribution Width 20.3 % (11.5-14.5); Red Blood Cell (RBC) Count 2.77 mill/uL (4.70-6.10); White Blood Cell (WBC) Count 7.6 thou/uL (4.8-10.8)
[2018-07-28 08:34] LABS: Anion Gap 14 mmol/L (10-20); BUN (Urea Nitrogen) 9 mg/dL (8.4-25.7); Calc. Creatinine Clearance 147 mL/min (70-130); Calcium 8.2 mg/dL (7.8-10.44); Carbon Dioxide 19 mmol/L (23-31); Chloride 102 mmol/L (98-107); Estimated GFR-MDRD Greater than 90; Glucose 208 mg/dL (80-115); Potassium 4.8 mmol/L (3.5-5.1); Sodium 130 mmol/L (136-145)
[2018-07-28] MEDS: Calcitriol 0.25 MCG CAP PO SCH (08:38)
[2018-07-28] MEDS: Montelukast Sodium 10 mg Tablet PO SCH (08:38)
[2018-07-28] MEDS: Calcium Carbonate 500 MG ChewTAB PO SCH ×2 (08:38→20:12)
[2018-07-28] MEDS: Digoxin 0.125 MG TAB PO SCH (08:39)
[2018-07-28] MEDS: Allopurinol 300 MG TAB PO SCH (08:39)
[2018-07-28] MEDS: Potassium Chloride 20 MEQ TAB PO SCH (08:39)
[2018-07-28] MEDS: Gabapentin 400 MG CAP PO SCH (08:39)
[2018-07-28] MEDS: Loratadine 10 MG TAB PO SCH (08:39)
[2018-07-28] MEDS: Folic Acid 1 MG TAB PO SCH (08:39)
[2018-07-28] MEDS: Phenytoin 125 MG/5 ML UDCUP PO SCH ×2 (08:40→20:11)
[2018-07-28] MEDS: Atorvastatin Calcium 10 MG TAB PO SCH (08:40)
[2018-07-28] MEDS: Aspirin 325 mg Enteric Coated Tablet PO SCH (08:40)
[2018-07-28] MEDS: Magnesium Oxide 400 MG TAB PO SCH ×2 (08:40→20:14)
[2018-07-28] MEDS: Bumetanide 1 MG TAB PO SCH (08:41)
[2018-07-28] MEDS: Tacrolimus 1 MG CAP PO SCH ×2 (08:41→20:13)
[2018-07-28] MEDS: Docusate 100 MG CAP PO SCH ×2 (08:42→20:03)
[2018-07-28] MEDS: Enoxaparin Sodium 40 MG/0.4 ML SYRINGE SC SCH (08:45)
[2018-07-28] MEDS: HumaLOG 300 UNITS/3 ML VIAL SC PRN ×3 (08:48→17:03)
[2018-07-28] MEDS: Mycophenolate 250 MG CAP PO SCH ×2 (08:59→20:13)
[2018-07-28] MEDS: Hydrocortisone 10 mg Tablet PO SCH ×2 (08:59→20:13)
[2018-07-28] MEDS: Ondansetron ODT 4 MG TAB SL PRN (09:10)
--- NOTE | 2018-07-28 09:23 | PDOC.FM ---
- Subjective Subjective: Mr. Joseph is resting comfortably in bed, he is feeling well and ready to go home. he will be working stairs with PT today - Objective Vital Signs & Weight: Vital Signs (12 hours) Temp Pulse Resp BP BP Pulse Ox 07/28/18 08:39 94 07/28/18 07:39 98.5 F 94 20 115/74 98 07/28/18 04:00 97.8 F 97 20 127/74 96 07/28/18 01:30 109 H Weight Admit Weight 109.769 kg Weight 107.3 kg I&O: 07/27/18 07/28/18 07/29/18 06:59 06:59 06:59 Intake Total 480 440 240 Output Total 250 Balance 230 440 240 Result Diagrams: 07/27/18 21:41 07/28/18 08:00 Phys Exam - Physical Examination Constitutional: NAD HEENT: moist MMs Neck: no JVD Gastrointestinal: no distention Musculoskeletal: no edema Neurological: non-focal Psychiatric: normal affect Skin: no rash Dx/Plan (1) Altered mental status Code(s): R41.82 - ALTERED MENTAL STATUS, UNSPECIFIED Status: Acute (2) Hyponatremia Code(s): E87.1 - HYPO-OSMOLALITY AND HYPONATREMIA Status: Acute (3) Viral gastroenteritis Code(s): A08.4 - VIRAL INTESTINAL INFECTION, UNSPECIFIED Status: Acute (4) Seizures Code(s): R56.9 - UNSPECIFIED CONVULSIONS Status: Acute (5) Adrenal insufficiency Code(s): E27.40 - UNSPECIFIED ADRENOCORTICAL INSUFFICIENCY Status: Chronic (6) CKD (chronic kidney disease) stage 3, GFR 30-59 ml/min Status: Chronic (7) COPD (chronic obstructive pulmonary disease) Status: Chronic Qualifiers: COPD type: COPD with acute exacerbation Qualified Code(s): J44.1 - Chronic obstructive pulmonary disease with (acute) exacerbation (8) GERD (gastroesophageal reflux disease) Code(s): K21.9 - GASTRO-ESOPHAGEAL REFLUX DISEASE WITHOUT ESOPHAGITIS Status: Chronic (9) Hx of kidney transplant Status: Chronic (10) Hyperlipidemia Code(s): E78.5 - HYPERLIPIDEMIA, UNSPECIFIED Status: Chronic (11) Hypothyroid Code(s): E03.9 - HYPOTHYROIDISM, UNSPECIFIED Status: Chronic (12) Adrenal insufficiency Code(s): E27.40 - UNSPECIFIED ADRENOCORTICAL INSUFFICIENCY Status: Suspected - Plan Plan: AMS, likely 2/2 viral gastroenteritis with hyponatremia, improved clinical picture most consistent with viral gastroenteritis with associated hypovolemic hyponatremia. - recent head CT negative - had period of low BP, MAP 55 in ED in addition to need for IV access, L femoral line placed; BP stable - blood cx showing 1/2 gram + enterococcus from the femoral line - likely contaminant, no abx for now. Procal 0.16. Blood cultures redrawn - 1 from peripheral, 1 from line. Patient got peripheral IV access and femoral central line removed. Cath tip culture drawn as well. Results: Gram pos ana m grown from central line 1/2 cultures. No growth from the catheter tip. No growth from peripheral. Likely contaminant. Will not start abx. Hypokalemia - Will continue to monitor and replace as needed Moderate hyponatremia likely 2/2 hypovolemia, improved with IVF. - unable to get urine studies as IVF already given in ED - continue to monitor sodium, PO hydration Anemia On admission 9.1, near baseline - 9.3 on 07/19 continue to monitor - hx of folate deficiency; will continue replacement w/ folvite - worked up extensively on current and past admission, no bleeding found Adrenal insufficiency - Stress dose of steroids given then will restart home hydrocortisone CKD s/p kidney transplant - continue home tacrolimus, mycophenolate mofetil, zytiga HTN - continue home amlodipine, metoprolol, diltiazem, digoxin HFpEF, present on admission - Echo 04/2018 showed EF 60-65%, 1/3 diastolic dysfunction IDDM2 - achs accuchecks, mild SSI - continue home insulin Seizure disorder - dilantin level in therapeutic range when calculated considering albumin level - will consult with pharmacy for correct dosing/monitoring GERD - continue home protonix Gout - continue home allopurinol/colchicine HLD - continue home lipitor Neuropathy - continue home amitriptyline, gabapentin - if patient becomes altered, consider decreasing dosage Ppx: lovenox Diet: CC, HH Dispo: DC home with home health, needs walker for safety and ambulation.
--- NOTE | 2018-07-28 10:34 | EKG ---
Test Reason : Blood Pressure : / mmHG Vent. Rate : 105 BPM Atrial Rate : 105 BPM P-R Int : 200 ms QRS Dur : 068 ms QT Int : 304 ms P-R-T Axes : 071 052 179 degrees QTc Int : 401 ms Sinus tachycardia Abnormal ECG When compared with ECG of 24-JUL-2018 13:32, Borderline criteria for Inferior infarct are no longer Present Confirmed by DR. Aminta GARCÍA ([id number]) on 07/28/2018 10:33:53 AM Referred By: Confirmed By:DR. Aminta GARCÍA
--- NOTE | 2018-07-28 14:28 | PRG ---
DATE OF SERVICE: 07/28/2018 Mr. Joseph is sitting in his chair quietly. We are awaiting placement and likely discharge him today. Job ID: [id number]
[2018-07-28] MEDS: Gabapentin 300 MG CAP PO SCH (20:13)
[2018-07-28] MEDS: traZODone HCl 50 MG TAB PO SCH (20:14)
[2018-07-28] MEDS: Benzonatate 100 MG CAP PO PRN (21:08)
[2018-07-28] MEDS: traMADol HCl 50 MG TAB PO PRN (21:08)
[2018-07-29] MEDS: Benzonatate 100 MG CAP PO PRN ×2 (05:36→08:14)
[2018-07-29 05:50] LABS: Anion Gap 13 mmol/L (10-20); BUN (Urea Nitrogen) 11 mg/dL (8.4-25.7); Calc. Creatinine Clearance 134 mL/min (70-130); Calcium 8.5 mg/dL (7.8-10.44); Carbon Dioxide 22 mmol/L (23-31); Chloride 101 mmol/L (98-107); Estimated GFR-MDRD Greater than 90; Glucose 237 mg/dL (80-115); Potassium 4.7 mmol/L (3.5-5.1); Sodium 131 mmol/L (136-145)
[2018-07-29] MEDS: HumaLOG 300 UNITS/3 ML VIAL SC PRN (06:01)
--- NOTE | 2018-07-29 07:06 | PDOC.FM ---
- Subjective Subjective: Mr. Joseph is resting comfortably in bed, did stairs well yesterday and would like to go home - Objective Vital Signs & Weight: Vital Signs (12 hours) Temp Pulse Resp BP Pulse Ox 07/28/18 21:28 98 07/28/18 20:00 98.2 F 108 H 20 123/76 98 Weight Admit Weight 109.769 kg Weight 107.3 kg I&O: 07/28/18 07/29/18 07/30/18 06:59 06:59 06:59 Intake Total 440 640 Balance 440 640 Result Diagrams: 07/27/18 21:41 07/29/18 05:18 Phys Exam - Physical Examination Constitutional: NAD HEENT: moist MMs Neck: no JVD Gastrointestinal: soft, no distention Musculoskeletal: no edema Neurological: moves all 4 limbs Psychiatric: normal affect Skin: no rash Dx/Plan (1) Altered mental status Code(s): R41.82 - ALTERED MENTAL STATUS, UNSPECIFIED Status: Acute (2) Hyponatremia Code(s): E87.1 - HYPO-OSMOLALITY AND HYPONATREMIA Status: Acute (3) Viral gastroenteritis Code(s): A08.4 - VIRAL INTESTINAL INFECTION, UNSPECIFIED Status: Acute (4) Seizures Code(s): R56.9 - UNSPECIFIED CONVULSIONS Status: Acute (5) Adrenal insufficiency Code(s): E27.40 - UNSPECIFIED ADRENOCORTICAL INSUFFICIENCY Status: Chronic (6) CKD (chronic kidney disease) stage 3, GFR 30-59 ml/min Status: Chronic (7) COPD (chronic obstructive pulmonary disease) Status: Chronic Qualifiers: COPD type: COPD with acute exacerbation Qualified Code(s): J44.1 - Chronic obstructive pulmonary disease with (acute) exacerbation (8) GERD (gastroesophageal reflux disease) Code(s): K21.9 - GASTRO-ESOPHAGEAL REFLUX DISEASE WITHOUT ESOPHAGITIS Status: Chronic (9) Hx of kidney transplant Status: Chronic (10) Hyperlipidemia Code(s): E78.5 - HYPERLIPIDEMIA, UNSPECIFIED Status: Chronic (11) Hypothyroid Code(s): E03.9 - HYPOTHYROIDISM, UNSPECIFIED Status: Chronic (12) Adrenal insufficiency Code(s): E27.40 - UNSPECIFIED ADRENOCORTICAL INSUFFICIENCY Status: Suspected - Plan Plan: AMS, likely 2/2 viral gastroenteritis with hyponatremia, improved clinical picture most consistent with viral gastroenteritis with associated hypovolemic hyponatremia. - recent head CT negative - had period of low BP, MAP 55 in ED in addition to need for IV access, L femoral line placed; BP stable - blood cx showing 1/2 gram + enterococcus from the femoral line - likely contaminant, no abx for now. Procal 0.16. Blood cultures redrawn - 1 from peripheral, 1 from line. Patient got peripheral IV access and femoral central line removed. Cath tip culture drawn as well. Results: Gram pos ana m grown from central line 1/2 cultures. No growth from the catheter tip. No growth from peripheral. Likely contaminant. Will not start abx. Hypokalemia - Will continue to monitor and replace as needed Moderate hyponatremia likely 2/2 hypovolemia, improved with IVF. - unable to get urine studies as IVF already given in ED - continue to monitor sodium, PO hydration Anemia On admission 9.1, near baseline - 9.3 on 07/19 continue to monitor - hx of folate deficiency; will continue replacement w/ folvite - worked up extensively on current and past admission, no bleeding found Adrenal insufficiency - Stress dose of steroids given then will restart home hydrocortisone CKD s/p kidney transplant - continue home tacrolimus, mycophenolate mofetil, zytiga HTN - continue home amlodipine, metoprolol, diltiazem, digoxin HFpEF, present on admission - Echo 04/2018 showed EF 60-65%, 1/3 diastolic dysfunction IDDM2 - achs accuchecks, mild SSI - continue home insulin Seizure disorder - dilantin level in therapeutic range when calculated considering albumin level - will consult with pharmacy for correct dosing/monitoring GERD - continue home protonix Gout - continue home allopurinol/colchicine HLD - continue home lipitor Neuropathy - continue home amitriptyline, gabapentin - if patient becomes altered, consider decreasing dosage Ppx: lovenox Diet: CC, HH Dispo: DC to SNF vs home with home health, needs walker for safety and ambulation.
[2018-07-29] MEDS: Phenytoin 125 MG/5 ML UDCUP PO SCH (08:02)
[2018-07-29] MEDS: Montelukast Sodium 10 mg Tablet PO SCH (08:03)
[2018-07-29] MEDS: Calcitriol 0.25 MCG CAP PO SCH (08:03)
[2018-07-29] MEDS: Calcium Carbonate 500 MG ChewTAB PO SCH (08:03)
[2018-07-29] MEDS: Bumetanide 1 MG TAB PO SCH (08:04)
[2018-07-29] MEDS: Digoxin 0.125 MG TAB PO SCH (08:04)
[2018-07-29] MEDS: Folic Acid 1 MG TAB PO SCH (08:04)
[2018-07-29] MEDS: Atorvastatin Calcium 10 MG TAB PO SCH (08:05)
[2018-07-29] MEDS: Allopurinol 300 MG TAB PO SCH (08:05)
[2018-07-29] MEDS: Hydrocortisone 10 mg Tablet PO SCH (08:05)
[2018-07-29] MEDS: Gabapentin 400 MG CAP PO SCH (08:05)
[2018-07-29] MEDS: Loratadine 10 MG TAB PO SCH (08:05)
[2018-07-29] MEDS: Docusate 100 MG CAP PO SCH (08:05)
[2018-07-29] MEDS: Potassium Chloride 20 MEQ TAB PO SCH (08:06)
[2018-07-29] MEDS: Aspirin 325 mg Enteric Coated Tablet PO SCH (08:06)
[2018-07-29] MEDS: Magnesium Oxide 400 MG TAB PO SCH (08:06)
[2018-07-29] MEDS: Enoxaparin Sodium 40 MG/0.4 ML SYRINGE SC SCH (08:07)
[2018-07-29] MEDS: Tacrolimus 1 MG CAP PO SCH (08:07)
[2018-07-29] MEDS: Mycophenolate 250 MG CAP PO SCH (08:07)
[2018-07-29 08:23] VITALS: BP 121/69; TEMP 97.8
--- NOTE | 2018-07-29 11:57 | PRG ---
DATE OF SERVICE: 07/29/2018 Mr. Joseph is being discharged this morning. He is in good spirits. No distress. Job ID: [id number]
--- NOTE | 2018-08-02 06:12 | DIS ---
DATE OF ADMISSION: 07/13/2018 DATE OF DISCHARGE: 07/29/2018 ADMITTING ATTENDING: Stephanie Yi MD. DISCHARGE ATTENDING: Pal Urbano MD. RESIDENT: Jesús Peralta DO. CONSULTS: None. PROCEDURES: None. IMAGIN. Abdomen and pelvis CT, impression, numerous prior findings as detailed above. No evidence for free intraperitoneal air. 2. Chest x-ray, impression, no acute findings. 3. No evidence of DVT of either lower extremity. PRIMARY DIAGNOSES: Altered mental status likely secondary to viral gastroenteritis with hyponatremia. SECONDARY DIAGNOSES: 1. Hypokalemia. 2. Anemia. 3. Adrenal insufficiency. 4. Chronic kidney disease, status post kidney transplant. 5. Hypertension. 6. Heart failure with preserved ejection fraction. 7. Diabetes mellitus, type 2. 8. Seizure disorder. 9. Gastroesophageal reflux disease. 10. Gout. 11. Hyperlipidemia. 12. Neuropathy. DISCHARGE MEDICATIONS: 1. Zyrtec 10 mg p.o. daily. 2. Amlodipine 2.5 mg p.o. daily. 3. Metoprolol 100 mg p.o. b.i.d. 4. Calcitriol 0.25 mcg p.o. daily. 5. Tacrolimus 1 mg p.o. b.i.d. 6. Amitriptyline 20 mg p.o. at bedtime. 7. Lipitor 10 mg p.o. daily. 8. Aspirin 325 mg daily. 9. Mycophenolate mofetil 500 mg p.o. b.i.d. 10. Allopurinol 3 tab p.o. daily. 11. Bumex 1 tab p.o. daily. 12. Singulair 10 mg p.o. q.a.m. 13. Gabapentin 300 mg p.o. q.a.m. 14. Zytiga 1000 mg p.o. daily. 15. Colace 100 mg p.o. b.i.d. 16. Colchicine 0.6 mg p.o. b.i.d. 17. [place] 10/325. 18. MiraLAX 17 g p.o. daily. 19. Zofran 8 mg p.o. q.8 hours p.r.n. 20. Tums 1000 mg p.o. b.i.d. 21. Digoxin 0.125 mg p.o. daily. 22. Cardizem 240 mg p.o. daily. 23. Magnesium oxide 400 mg p.o. b.i.d. 24. Phos-Nak 1 packet p.o. q.a.m. 25. Protonix 20 mg p.o. daily. 26. Trazodone 100 mg p.o. q.p.m. 27. Loperamide 2 mg p.o. q.4 hours p.r.n. 28. Humalog KwikPen prn. 29. Hydrocortisone 10 mg p.o. q.a.m. 30. Amlodipine 10 mg p.o. daily. 31. Lantus 25 units SC h.s. 32. Lantus 35 units SC q.a.m. 33. Folvite 1 mg p.o. daily. 34. K-Dur 40 mEq p.o. q.a.m. 35. Dilantin 60 mg p.o. b.i.d. Discontinued medications: Dilantin 100mg p.o. b.i.d. HISTORY OF PRESENT ILLNESS/HOSPITAL COURSE: Please see event note on 07/18/2018 , for transfer of care from Dr. Yesi Wilkins care assumed on 07/19/2018. The patient had been medically stable and at that point, electrolytes has been normalized, awaiting placement in half-way facility, receiving PT and OT daily. The patient did not develop any acute events and remained afebrile. Mental status remained at baseline per family and the patient. The patient tolerated diet well and Dilantin dose was optimized. Back and forth communication with insurance, home health, and Case Management eventually ended with the patient being able to walk over 350 feet and travel up and down 4 to 5 steps, which he was able to. He was deemed stable to go home, okay on his own. DISCHARGE INSTRUCTIONS: 1. Location: Home with home health. 2. Diet: Diabetic, heart healthy, low-sodium. 3. Activity: As tolerated. 4. Followup: Follow up with PCP, Dr. Josephine Christina, in the next 3 to 4 days. Job ID: [id number] MTDD
== END 2018-07-29 12:06 | disposition home health service (06) | DRG 391 ==
LOC: ERS 16:58 → ERHOLD 23:16 → 2NO 07-14 16:21 → T4-B 07-21 23:20
PROVIDERS: ADMIT Student in an Organized Health Care Education/Training Program; ATTEND Student in an Organized Health Care Education/Training Program
PROC: 06HN33Z Insertion of Infusion Device into Left Femoral Vein, Percutaneous Approach (ICD-10-PCS; 2018-07-13)
PROC: 30233N1 Transfusion of Nonautologous Red Blood Cells into Peripheral Vein, Percutaneous Approach (ICD-10-PCS; principal; 2018-07-16)
DX: A08.4 Viral intestinal infection, unspecified (principal); G93.41 Metabolic encephalopathy; E27.40 Unspecified adrenocortical insufficiency; I13.0 Hypertensive heart and chronic kidney disease with heart failure and stage 1 through stage 4 chronic kidney disease, or unspecified chronic kidney disease; I50.32 Chronic diastolic (congestive) heart failure; Z94.0 Kidney transplant status; E87.1 Hypo-osmolality and hyponatremia; C79.9 Secondary malignant neoplasm of unspecified site; E86.0 Dehydration; E11.22 Type 2 diabetes mellitus with diabetic chronic kidney disease; E78.5 Hyperlipidemia, unspecified; J44.9 Chronic obstructive pulmonary disease, unspecified; G47.33 Obstructive sleep apnea (adult) (pediatric); K21.9 Gastro-esophageal reflux disease without esophagitis; M10.9 Gout, unspecified; G40.909 Epilepsy, unspecified, not intractable, without status epilepticus; E11.40 Type 2 diabetes mellitus with diabetic neuropathy, unspecified; N18.3 Chronic kidney disease, stage 3 (moderate); D64.9 Anemia, unspecified; C61 Malignant neoplasm of prostate; Z79.82 Long term (current) use of aspirin; Z79.4 Long term (current) use of insulin; Z88.8 Allergy status to other drugs, medicaments and biological substances; Z88.6 Allergy status to analgesic agent; Z91.040 Latex allergy status; Z88.0 Allergy status to penicillin; Z91.013 Allergy to seafood; Z90.49 Acquired absence of other specified parts of digestive tract; Z82.49 Family history of ischemic heart disease and other diseases of the circulatory system; Z83.3 Family history of diabetes mellitus
CPT/HCPCS: 36415; 36416; 36430; 36556; 51701; 71045; 74176; 80048; 80053; 80185; 81003; 82040; 82550; 83605; 83690; 83735; 83880; 84145; 84443; 84484; 85025; 86850; 86900; 86901; 87040; 87071; 87077; 87149; 87186; 87798; 87804; 93005; 93010; 93970; 96361; 96365; J0131; J1650; J1720; J1956; J3370; J3475; J7050; J7507; J7517; P9016; Q0162

== ENCOUNTER 2018-08-02 17:48 | Emergency (ER) | payer MEDICARE ==
--- NOTE | 2018-08-02 19:08 | RAD ---
PORTABLE CHEST: HISTORY: Altered mental status. Syncope. COMPARISON: 07/13/2018 FINDINGS: The heart size is within normal limits. The aorta is tortuous. The lungs are clear of any infiltrat jolene process. IMPRESSION: No active intrathoracic disease. POS: [facility]
--- NOTE | 2018-08-02 19:37 | CT ---
CT ABDOMEN AND PELVIS WITHOUT CONTRAST: HISTORY: Abdominal pain. Vomiting. COMPARISON: CT examination from 07/13/2018. FINDINGS: ABDOMEN: The lung bases are clear of infiltrative process. Coronary calcifications are seen. A sma ll hiatal hernia is noted. The liver, spleen, and pancreas appear unremarkable on this noncontrast study. The gallbladder has b een removed. The right and left adrenal glands are normal. Both right and left kidneys are severely atrophic. Th ere is what appears to be a dilated, hydronephrotic, atrophic right kidney. There appears to be a layton rgical clip related to the more distal right ureter. This is a stable appearance as compared to the prior exam. There is no significant periaortic or mesenteric adenopathy. Colonic diverticulosis is seen. PELVIS: Surgical clips are seen in the pelvis. A right renal transplant is noted. The patient appe ars to have undergone a ventral hernia repair. Bones show diffuse abnormal sclerosis, which is probably on the basis of renal osteodystrophy. It is a stable finding. IMPRESSION: 1. Colonic diverticulosis. 2. Other chronic findings as discussed above. No acute process identified on today's examination. POS: [facility]
[2018-08-02 20:06] LABS: #Eosinphils 0.2 thou/uL (0.0-0.7); #Lymphocytes 1.6 thou/uL (1.20-3.40); #Monocytes 0.5 thou/uL (0.11-0.59); #Neutrophils 1.9 thou/uL (1.40-6.50); %Basophils 0.4 % (0.0-1.0); %Eosinophils 3.7 % (0.0-10.0); %Lymphocytes 39.2 % (21.0-51.0); %Monocytes 12.5 % (0.0-10.0); %Neutrophils 44.2 % (42.0-75.0); Hemoglobin 11.5 g/dL (14.0-18.0); Mean Corpuscular HGB CONC 31.1 g/dL (32.0-36.0); Mean Corpuscular Hemoglobin 31.4 pg (27.0-31.0); Mean Platelet Volume 6.6 fL (7.4-10.4); Platelet Count 321 thou/uL (130-400); RBC Distribution Width 19.9 % (11.5-14.5); Red Blood Cell (RBC) Count 3.67 mill/uL (4.70-6.10); White Blood Cell (WBC) Count 4.2 thou/uL (4.8-10.8)
[2018-08-02 20:40] LABS: ALT (SGPT) Less than 7 U/L (8-55); AST (SGOT) 14 U/L (5-34); Albumin 3.1 g/dL (3.4-4.8); Alkaline Phosphatase 185 U/L (40-150); Anion Gap 15 mmol/L (10-20); BUN (Urea Nitrogen) 15 mg/dL (8.4-25.7); Bilirubin, Total 0.4 mg/dL (0.2-1.2); CK (CPK) 16 U/L (30-200); Calc. Creatinine Clearance 0 mL/min (70-130); Calcium 8.7 mg/dL (7.8-10.44); Carbon Dioxide 18 mmol/L (23-31); Chloride 97 mmol/L (98-107); Estimated GFR-MDRD 60; Globulin 2.6 g/dL (2.4-3.5); Glucose 191 mg/dL (80-115); Lipase 14 U/L (8-78); Potassium 4.2 mmol/L (3.5-5.1); Protein, Total 5.7 g/dL (5.8-8.1); Sodium 126 mmol/L (136-145)
== END 2018-08-02 21:49 | disposition home or self-care (01) ==
LOC: ERS 17:48
DX: R11.2 Nausea with vomiting, unspecified (principal); I25.10 Atherosclerotic heart disease of native coronary artery without angina pectoris; E11.9 Type 2 diabetes mellitus without complications; K21.9 Gastro-esophageal reflux disease without esophagitis; E78.5 Hyperlipidemia, unspecified; J44.9 Chronic obstructive pulmonary disease, unspecified; Z79.899 Other long term (current) drug therapy; Z79.82 Long term (current) use of aspirin; Z79.4 Long term (current) use of insulin
CPT/HCPCS: 36415; 71045; 74176; 80053; 82550; 83605; 83690; 83880; 84484; 85025; 87040; 87804; 93005; 96360; 96361

== ENCOUNTER 2018-08-05 15:00 | Inpatient (IN) | payer MEDICARE ==
[2018-08-05] MEDS ORDERED: Lidocaine 2% 10 ML INJ ONE (15:39)
--- NOTE | 2018-08-05 15:42 | RAD ---
PORTABLE CHEST 1 VIEW: Date: 08/05/18 Time: 1526 hours HISTORY: Altered mental status. FINDINGS: Comparison made with exam of 08/02/18. The heart size is borderline. No focal areas of consolidation, pneumothoraces, sandra pulmonary edema, or pleural effusions are seen. IMPRESSION: No acute process. POS: [facility]
[2018-08-05] MEDS ORDERED: Acetaminophen 500 MG TAB ONE (16:29)
[2018-08-05] MEDS ORDERED: cefTRIAXone\\ROCEPHIN 2 GM VIAL ONE (16:29)
[2018-08-05 16:52] LABS: Bilirubin Small (Negative); Blood, Urine Negative (Negative); Clarity CLEAR (Clear); Glucose, Urine (Dipstick) Negative (Negative); Leukocyte Negative (Negative); Nitrite Negative (Negative); Protein, Urine (Dipstick) Negative (Neg-Trace); Specific Gravity, Urine 1.021 (1.002-1.036); pH, Urine 5.5 (5.0-9.0)
--- NOTE | 2018-08-05 16:52 | PDOC.FPRHP ---
- History of Present Illness Chief Complaint: AMS History of Present Illness: History taken from . states that patient started to have generalized weakness yesterday. Patient has been at home since discharge 1 week ago. She states he was barely able to transfer from bed to chair. Prior to this was able to ambulate from bed to bathroom without issue. She states he started to feel hot last night but did not have a fever. She states he has been coughing since going home from the hospital 1 week ago. She states he has had 1 episode of non-bloody vomiting Thursday. States he has been able to take all his medications except his potassium. States he has had mild decreased appetite. Has had a headache for the last 2 days, located in center of forehead. Denies abdominal pain. Has not been complaining of SOB. Has been complaining of R leg pain, chronic. She denies any new erythema or sores. She states he has a little bit of a wound from the L femoral line he had at the last admission. ED Course: R femoral central line placed Rocephin, vanc, 2L, tylenol - Allergies/Adverse Reactions Allergies Allergy/AdvReac Type Severity Reaction Status Date / Time Latex, Natural Rubber Allergy Verified 07/14/18 18:42 morphine Allergy Verified 07/14/18 18:42 NSAIDS (Non-Steroidal Allergy Verified 07/14/18 18:42 Anti-Inflamma Penicillins Allergy Severe Verified 07/14/18 18:42 Hives povidone-iodine Allergy Rash Verified 07/14/18 18:42 [From Betadine] shellfish derived Allergy Verified 07/14/18 18:42 Tetracyclines Allergy Verified 07/14/18 18:42 lisinopril AdvReac Mild COUGHING Verified 07/14/18 18:42 - Home Medications Medication Instructions Recorded Confirmed Type Amitriptyline HCl [Elavil] 25 mg PO HS 02/18/15 08/06/18 History Aspirin [Aspirin EC] 325 mg PO DAILY 02/18/15 08/06/18 History Atorvastatin Calcium [Lipitor] 10 mg PO DAILY 02/18/15 07/14/18 History Calcitriol 0.25 mcg PO DAILY 02/18/15 08/06/18 History Cetirizine HCl [Zyrtec] 10 mg PO DAILY 02/18/15 07/14/18 History Metoprolol Succinate [Toprol XL] 1 tab PO BID 02/18/15 08/06/18 History Mycophenolate Mofetil 500 mg PO BID 02/18/15 08/06/18 History Tacrolimus 1 mg PO BID 02/18/15 08/06/18 History amLODIPine Besylate [Norvasc] 2.5 mg PO DAILY 02/18/15 08/06/18 History Allopurinol 3 tab PO DAILY 05/09/15 08/06/18 History Bumetanide [Bumex] 1 tab PO DAILY 10/14/16 08/06/18 History Gabapentin 0.5 tab PO QAM 10/14/16 08/06/18 History Montelukast Sodium [Singulair] 10 mg PO QAM 10/14/16 08/06/18 History Abiraterone Acetate [Zytiga] 1,000 mg PO DAILY 04/25/18 08/06/18 History Colchicine [Colcrys] 0.6 mg PO BID 04/25/18 07/14/18 History Docusate [Colace] 100 mg PO BID 04/25/18 08/06/18 History HYDROcodone/Acetaminophen [Archer 1 each PO Q6H PRN 04/25/18 07/14/18 History 10-325 Tablet] Ondansetron HCl [Zofran] 4 mg PO Q6H PRN 05/18/18 08/06/18 History Polyethylene Glycol 3350 [Miralax] 17 gm PO DAILY PRN 05/18/18 07/14/18 History Acetaminophen [Tylenol Regular 650 mg PO Q4H PRN tab 06/03/18 07/14/18 Rx Strength] Calcium Carbonate [Tums] 1,000 mg PO BID tab 06/03/18 07/14/18 Rx Digoxin [Lanoxin] 0.125 mg PO DAILY tab 06/03/18 07/14/18 Rx Diltiazem HCl [Cardizem CD] 240 mg PO DAILY cap 06/03/18 07/14/18 Rx Magnesium Oxide 400 mg PO BID tab 06/03/18 08/06/18 Rx Phosphorus/Electrolyte Suppl 1 pkt PO QAM pack 06/03/18 08/06/18 Rx [Phos-NaK] Insulin Lispro [Humalog Kwikpen 100 unit SQ DAILY-AC PRN 06/23/18 07/14/18 History U-100] Loperamide HCl [Imodium A-D] 2 mg PO Q4HR PRN 06/23/18 07/14/18 History traZODone HCl [Trazodone HCl] 100 mg PO QPM 06/23/18 08/06/18 History Hydrocortisone [Cortef] 5 mg PO HS 30 Days #30 tab 06/29/18 08/06/18 Rx Hydrocortisone [Cortef] 10 mg PO QAM 30 Days #30 tab 06/29/18 07/14/18 Rx Amlodipine [Norvasc] 10 mg PO DAILY 30 Days #30 tab 07/01/18 07/14/18 Rx Insulin Glargine [Lantus Vial] 25 units SC HS 30 Days #1 vial 07/01/18 07/14/18 Rx Insulin Glargine [Lantus Vial] 35 units SC QAM 30 Days #1 vial 07/02/18 Rx Folic Acid [Folvite] 1 mg PO DAILY #30 tab 07/21/18 08/06/18 Rx Potassium Chloride [K-Dur] 40 meq PO QAM-WM #30 tab 07/21/18 08/06/18 Rx Pantoprazole [Protonix] 40 mg PO DAILY 08/06/18 08/06/18 History Phenytoin [Dilantin Suspension] 2.4 ml PO BID 08/06/18 08/06/18 History - History PMHx: COPD, JUDI, HTN, GERD, gout, metastatic prostate cancer, seizure disorder, HFpEF, neuropathy, HLD, adrenal insufficiency, HSV encephalitis, s/p kidney transplant on immunosuppresion PSHx: kidney transplant, hernia x3, cholecystectomy FHx: CT in mother, DM2 Social: no current tobacco, alcohol, drug use - Review of Systems General: reports: fever/chills. denies: weight/appetite/sleep changes, fatigue Eyes: denies: eye pain, vision changes ENT: reports: other (headache). denies: nasal congestion, rhinorrhea Respiratory: denies: cough, congestion, shortness of breath Cardiovascular: denies: chest pain, palpitation, edema Gastrointestinal: reports: vomiting. denies: nausea, diarrhea, abdominal pain, GI bleeding Genitourinary: denies: dysuria, polyuria Skin: reports: lesions (wound at left fem). denies: rashes Musculoskeletal: denies: pain, tenderness Neurological: reports: weakness. denies: seizure - Vital signs BP: 106/51 HR: 99 RR: 20 Tmax: 103.0 Pox: 95% on 3L Wt: 108.68kg - Physical Exam Constitutional: well developed (Awake but drowsy, oriented to person, not to place or time. Follows commands.) HEENT: normocephalic and atraumatic, PERRLA, EOMI, TM's clear and intact, grossly normal hearing, MMM Heart: RRR, normal S1/S2, no murmurs/rubs/gallops, pulses present, no edema Lungs: no respiratory distress, no retractions, other (diffuse wheezing) Abdomen: soft, non-tender, bowel sounds present Musculoskeletal: normal structure Neurological: CN II-XII intact, normal sensation -Neurological: Babinski normal, no clonus. Neuro exam limited by generalized weakness - difficult to complete finger to nose test. Muscle strength 4/5 in all extremities. Skin: other (Healing wound at previous L femoral central vein placement) Heme/Lymphatic: no unusual bruising or bleeding FMR H&P: Results - Labs Result Diagrams: 08/06/18 04:52 08/06/18 04:52 FMR H&P: A/P - Problem List (1) Acute encephalopathy Current Visit: No Status: Acute Code(s): G93.40 - ENCEPHALOPATHY, UNSPECIFIED (2) Altered mental status Current Visit: No Status: Acute Code(s): R41.82 - ALTERED MENTAL STATUS, UNSPECIFIED (3) Hyponatremia Current Visit: No Status: Acute Code(s): E87.1 - HYPO-OSMOLALITY AND HYPONATREMIA (4) Seizures Current Visit: No Status: Acute Code(s): R56.9 - UNSPECIFIED CONVULSIONS (5) Adrenal insufficiency Current Visit: No Status: Chronic Code(s): E27.40 - UNSPECIFIED ADRENOCORTICAL INSUFFICIENCY (6) CKD (chronic kidney disease) stage 3, GFR 30-59 ml/min Current Visit: No Status: Chronic (7) COPD (chronic obstructive pulmonary disease) Current Visit: No Status: Chronic Qualifiers: COPD type: COPD with acute exacerbation Qualified Code(s): J44.1 - Chronic obstructive pulmonary disease with (acute) exacerbation (8) Prostate cancer Current Visit: No Status: Chronic Code(s): C61 - MALIGNANT NEOPLASM OF PROSTATE (9) Adrenal insufficiency Current Visit: No Status: Suspected Code(s): E27.40 - UNSPECIFIED ADRENOCORTICAL INSUFFICIENCY (10) SIRS (systemic inflammatory response syndrome) Current Visit: No Status: Resolved Code(s): R65.10 - SIRS OF NON-INFECTIOUS ORIGIN W/O ACUTE ORGAN DYSFUNCTION - Plan SIRS with unknown infectious source - tachycardia 114, Fever max 103.8 in ED - nonproductive cough for >1 wk. CXR negative. Could consider bronchitis, URI. - UA negative - procalcitonin pending - small L groin wound could be infectious source, however appears very superficial. Wound care order placed. - pending dilantin and dig levels - received rocephin and vanc in ED 08/05 - tylenol prn fever AMS - not likely metabolic. Has tremor and generalized weakness but does not appear to have neurologic deficit. - CT brain pending. Without contrast ordered in ED so will be unable to rule out brain metastasis w/ hx of metastatic prostate cancer New headache - CT brain and tylenol as above Hyponatremia - Na+ 131, better compared to previous admissions - not likely contributing to presentation - am BMP Hypomagnesemia - 1.2, replaced with 2g mag - recheck in am Hypophosphatemia - 2.0, given one pack of phos tonight - recheck in am and further replace as necessary Physical deconditioning - PT/OT consult - CM consulted. Pt would likely benefit from facility placement at discharge. COPD - requiring 3L NC in ED, wean O2 as tolerated - no respiratory distress - duonebs angela considering wheezing on exam Adrenal Insufficiency - stress dose steroids - 30 mg hydrocortisone x 3 days (home dose 10mg daily) IDDM2 - continue home insulin - accuchecks and SSI s/p kidney transplant on immunosuppression - continue home meds Chronic macrocytic anemia - Hgb 9.1, at baseline - on folic acid supplements HLD - continue home meds HTN - continue home meds Gout - continue home meds Seizure disorder - dilantin dose decreased at last visit - will check level HFpEF - echo on 05/19/18 showed EF 60-65%, 1/3 diastolic dysfunction Metastatic prostate carcinoma Code: full code Diet: CC Dispo: admit to [facility] inpatient FMR H&P: Upper Level - Pertinent history 68 yr old male with significant PMH of kidney transplant on immunosuppressvie therapy, metastatic prostate cancer, adrenal insufficiency, seizure d/o who presents for AMS. Mom states he was unable to walk from his bedroom to the living room due to severe generalized weakness. He had nausea and vomiting 4 days ago and came into ER but was found to have baseline labs and essentially non revealing CT abd/pelvis-at that time he was treated with 1L NS and zofran. Nausea and vomiting have improved and only current symptoms are headache in frontal region, cough which states is present since last hospitalization. His speech was somewhat garbled today and he was altered. ER course: Difficulty establishing IV access upon presentation. Dr. Bennett of gen surg gained access via right femoral central line. Since receiving 2 liter bolus, he has improved orientation to person and knows he is in a hospital. - Pertinent findings Gen: no acute distress, lying in hospital bed with diffuse tremors Eyes: pupils 2 mm and nonreactive to light Mouth: no pharyngeal erythema or exudates, dry peeling lips Heart: tachycardic with reg rhythem, no murmurs Lungs: diffuse wheezing with course breath sounds in BLL, no rhales, rhonchi Abd: protuberant, soft, nontender, BS normal active EXT: right groin femoral line, left groin with skin breakdown at site of previous central line- clean and dry. no swelling, no edema - Plan Date/Time: 08/05/181651 I, [Maria A Franklin], have evaluated this patient and agree with findings/plan as outlined by help desk intern resident. Pertinent changes/additions are listed here. 68 yr old male with extensive PMH of kidney transplant, metastatic prostate cancer, who presents with generalized weakness and tremors SIRS with unknown source -temp to 103.8, tachycardia, nml wbc -CXR negative, diffuse wheezing on lung exam -small area of skin breakdown in left groin -metastatic cancer -flu negative -consider viral resp panel -will cont vanc and rocephin, may add meropenem if no improvment for broader coverage Acute encephalopathy -possibly 2/2 volume depletion and sepsis -slight improvement with 2 liter bolus -pending CT brain -patient hospitalized approx 2 month ago for encephalopathy 2/2 HSV encephalitis treated with acyclovir -UA clean -mild hyponatremia but likely not significant for AMS -only neurological findings of tremors and generalized weakness which make neuro exam somewhat limited IDDM2 -cont home insulin regiment Adrenal insufficiency -will give stress dose of steroids hx of kidney transplant on immunosuppresvie therapy seizure disorder -will check dilantin levels metastatic prostate cancer chronic macrocytic anemia -stable CAD HLD HFpEF echo 04/2018 EF 60-65% with grade 1/3 diastolic dysfunction severe deconditioning -patient likely would benefit from placement in rehab or SNF.
[2018-08-05 16:55] LABS: ALT (SGPT) 13 U/L (8-55); AST (SGOT) 39 U/L (5-34); Albumin 2.9 g/dL (3.4-4.8); Alkaline Phosphatase 229 U/L (40-150); Anion Gap 16 mmol/L (10-20); BUN (Urea Nitrogen) 12 mg/dL (8.4-25.7); Bilirubin, Total 0.5 mg/dL (0.2-1.2); CK (CPK) 52 U/L (30-200); Calc. Creatinine Clearance 0 mL/min (70-130); Calcium 8.2 mg/dL (7.8-10.44); Carbon Dioxide 18 mmol/L (23-31); Chloride 100 mmol/L (98-107); Estimated GFR-MDRD 87; Globulin 2.2 g/dL (2.4-3.5); Glucose 175 mg/dL (80-115); Potassium 6.4 mmol/L (3.5-5.1); Protein, Total 5.1 g/dL (5.8-8.1); Sodium 128 mmol/L (136-145)
[2018-08-05 17:03] LABS: Hemoglobin 5.1 g/dL (14.0-18.0); Mean Corpuscular Volume 99.9 fL (78.0-98.0); Platelet Count 4 thou/uL (130-400); RBC Distribution Width 18.9 % (11.5-14.5); White Blood Cell (WBC) Count 1.4 thou/uL (4.8-10.8)
[2018-08-05 17:06] LABS: Anisocytosis SLIGHT = 6-15 cells (100X) (0-5/hpf); Band 30 % (5-11); Elliptocytes SLIGHT = 2-5 cells (100X) (0-1/hpf); Eosinophils 4 % (0-10); Lymphocytes 36 % (21-51); MDiff Complete? YES; Neutrophil 30 % (42-75); Nucleated RBC 7 % (0); Platelet Morphology Comment Appears Decreased; Poikilocytosis SLIGHT = 6-15 cells (100X) (0-5/hpf); Polychromasia SLIGHT = 2-3 cells (100X) (0-2/hpf); Tear Drops SLIGHT = 2-5 cells (100X) (0-1/hpf)
[2018-08-05] MEDS ORDERED: Vancomycin HCl 1.5 GM in Sodium Chloride 0.9% 250 ML 300 ML IVPB SCH (17:15)
--- NOTE | 2018-08-05 17:57 | RAD ---
PORTABLE CHEST: Date: 08/05/18 HISTORY: Attempt at central line placement. The side of the attempt is not specified. COMPARISON: Early exam same date. FINDINGS: Heart size is within normal limits. Aorta is tortuous. Lungs are clear of infiltrates. No pneumothora x. IMPRESSION: No signs of pneumothorax. POS: [facility]
[2018-08-05] MEDS ORDERED: Senokot S 8.6-50 MG TAB PO PRN (19:18)
[2018-08-05 19:30] LABS: Hemoglobin 9.1 g/dL (14.0-18.0); Mean Corpuscular HGB CONC 32.2 g/dL (32.0-36.0); Mean Corpuscular Hemoglobin 32.3 pg (27.0-31.0); Mean Platelet Volume 6.2 fL (7.4-10.4); Platelet Count 384 thou/uL (130-400); RBC Distribution Width 19.2 % (11.5-14.5); Red Blood Cell (RBC) Count 2.82 mill/uL (4.70-6.10); White Blood Cell (WBC) Count 7.1 thou/uL (4.8-10.8)
[2018-08-05 19:47] LABS: ALT (SGPT) Less than 7 U/L (8-55); AST (SGOT) 20 U/L (5-34); Albumin 2.9 g/dL (3.4-4.8); Alkaline Phosphatase 182 U/L (40-150); Anion Gap 13 mmol/L (10-20); BUN (Urea Nitrogen) 11 mg/dL (8.4-25.7); Bilirubin, Total 0.4 mg/dL (0.2-1.2); Calc. Creatinine Clearance 0 mL/min (70-130); Calcium 8.3 mg/dL (7.8-10.44); Carbon Dioxide 20 mmol/L (23-31); Chloride 103 mmol/L (98-107); Estimated GFR-MDRD 88; Globulin 2.5 g/dL (2.4-3.5); Glucose 175 mg/dL (80-115); Magnesium 1.2 mg/dL (1.6-2.6); Potassium 4.5 mmol/L (3.5-5.1); Protein, Total 5.4 g/dL (5.8-8.1); Sodium 131 mmol/L (136-145)
[2018-08-05 20:02] LABS: #Basophils 0.1 thou/uL (0.0-0.2); #Eosinphils 0.1 thou/uL (0.0-0.7); #Lymphocytes 2.9 thou/uL (1.20-3.40); #Monocytes 0.7 thou/uL (0.11-0.59); #Neutrophils 3.3 thou/uL (1.40-6.50); %Basophils 0.9 % (0.0-1.0); %Lymphocytes 40.5 % (21.0-51.0); %Monocytes 10.1 % (0.0-10.0); %Neutrophils 46.5 % (42.0-75.0); Anisocytosis SLIGHT = 6-15 cells (100X) (0-5/hpf); MDiff Complete? YES; Platelet Morphology Comment Appears Adequate; Schistocytes SLIGHT = 2-5 cells (100X) (0-1/hpf)
--- NOTE | 2018-08-05 20:27 | CT ---
CT BRAIN WITHOUT CONTRAST: HISTORY: Stroke alert. Left arm tingling. COMPARISON: 06/23/2018 FINDINGS: There is mild generalized ventricular and sulcal prominence. There are no signs of intracerebral hem orrhage or extraaxial fluid collections. No mass lesion or mass effect. The mastoid air cells and v isualized sinuses are clear. IMPRESSION: No acute intracranial abnormalities. Findings telephoned to Dr. Iraheta at 1956 hours. CODE CR POS: [facility]
[2018-08-05] MEDS ORDERED: Ondansetron PF 4 MG/2 ML Vial ONE (21:56)
[2018-08-05] MEDS ORDERED: Hydrocortisone 10 mg Tablet PO SCH (22:00)
[2018-08-05] MEDS: Acetaminophen 325 MG TAB PO PRN (22:57)
[2018-08-05] MEDS: Sodium Chloride 0.9% 1,000 ML IV SCH (22:57)
[2018-08-05] MEDS ORDERED: Magnesium 2 GM/50 ML 2 GM in Premix Bag 1 BAG IVPB SCH (23:00)
--- NOTE | 2018-08-05 23:13 | PDOC.OP ---
Operative Note - Operative Note Operative Note: PROCEDURE: Femoral central venous catheter placement with ultrasound guidance DATE OF PROCEDURE: 08/05/2018 SURGEON: Kavitha Bennett M.D. PREOPERATIVE DIAGNOSES: Sepsis with inadequate IV access POSTOPERATIVE DIAGNOSIS: Sepsis with inadequate IV access HISTORY: Patient with sepsis and inadequate IV access. Multiple attempts at central venous catheter placement by the ER physician were unsuccessful. He placed an intraosseous device in the right humerus and the patient has received some IV fluids and antibiotics. Peripheral IVs have been unable to be placed and the patient requires ongoing access for lab draws and administration of IV fluids and medications. Central venous catheter placement has been requested for this. PROCEDURE IN DETAIL: After informed consent was obtained and an ultrasound used to confirm presence of a patent compressible femoral vein, the right groin was prepped and draped in standard sterile fashion. Local anesthesia was infused over the femoral vein which was accessed under direct ultrasound guidance with excellent flow of dark venous nonpulsatile blood. Ultrasound was used to confirm the presence of the wire within the patent compressible femoral vein. A skin incision was made and the tract was serially dilated over the wire. The triple-lumen catheter was placed over the wire and secured to the skin with sutures. All ports easily aspirated and easily flushed without resistance. A Biopatch and Tegaderm dressing was placed. The patient tolerated the procedure well. Estimated blood loss was minimal. There were no complications. There were no specimens.
[2018-08-06] MEDS: Sodium Chloride 0.9% 1,000 ML IV SCH ×4 (00:17→21:34)
[2018-08-06] MEDS ORDERED: Dextrose 50% Abboject 50 ML SYRINGE SLOW IVP PRN (02:48)
[2018-08-06] MEDS ORDERED: Dextrose 5% in Water 1,000 ML IV PRN (02:48)
[2018-08-06 05:03] LABS: #Basophils 0.1 thou/uL (0.0-0.2); #Lymphocytes 1.4 thou/uL (1.20-3.40); #Monocytes 0.7 thou/uL (0.11-0.59); #Neutrophils 4.4 thou/uL (1.40-6.50); %Basophils 0.9 % (0.0-1.0); %Eosinophils 0.8 % (0.0-10.0); %Lymphocytes 21.7 % (21.0-51.0); %Monocytes 10.4 % (0.0-10.0); %Neutrophils 66.4 % (42.0-75.0); Mean Corpuscular HGB CONC 31.7 g/dL (32.0-36.0); Mean Corpuscular Hemoglobin 32.1 pg (27.0-31.0); Mean Platelet Volume 6.1 fL (7.4-10.4); Platelet Count 302 thou/uL (130-400); RBC Distribution Width 19.2 % (11.5-14.5); Red Blood Cell (RBC) Count 2.49 mill/uL (4.70-6.10); White Blood Cell (WBC) Count 6.6 thou/uL (4.8-10.8)
[2018-08-06 05:20] LABS: Digoxin 0.33 ng/mL (0.8-2.0)
[2018-08-06 05:22] LABS: ALT (SGPT) Less than 7 U/L (8-55); AST (SGOT) 17 U/L (5-34); Albumin 2.6 g/dL (3.4-4.8); Alkaline Phosphatase 150 U/L (40-150); Anion Gap 14 mmol/L (10-20); BUN (Urea Nitrogen) 11 mg/dL (8.4-25.7); Bilirubin, Total 0.4 mg/dL (0.2-1.2); Calc. Creatinine Clearance 109 mL/min (70-130); Calcium 7.9 mg/dL (7.8-10.44); Carbon Dioxide 19 mmol/L (23-31); Chloride 103 mmol/L (98-107); Estimated GFR-MDRD Greater than 90; Globulin 2.1 g/dL (2.4-3.5); Glucose 226 mg/dL (80-115); Magnesium 2.1 mg/dL (1.6-2.6); Potassium 4.6 mmol/L (3.5-5.1); Protein, Total 4.7 g/dL (5.8-8.1); Sodium 131 mmol/L (136-145)
[2018-08-06 05:34] LABS: Phosphorus 2.8 mg/dL (2.3-4.7)
[2018-08-06] MEDS: MEROPENEM 1 GM/50 ML 1 GM in Premix Bag 1 BAG IVPB SCH ×2 (06:14→14:42)
--- NOTE | 2018-08-06 06:16 | PDOC.FM ---
Addendum entered and electronically signed by Hayes Samuels MD 08/06/18 06:59: ordered CTA to r/o PE Hx: metastatic prostate cancer, recent long hospitalization, tachycardic, diaphoretic Original Note: - Subjective Subjective: This morning patient is AxOx2. He is sleepy but arousable. states that they woke up around 0300 and he seemed pretty normal at that time. Patient denies chest pain, leg pain, or abdominal pain this morning. He follows commands but must be stimulated to be awoken. - Objective Vital Signs & Weight: Vital Signs (12 hours) Temp Pulse Resp Pulse Ox 08/06/18 04:00 97.2 F L 08/06/18 02:33 111 H 22 H 100 08/06/18 00:13 99.6 F 08/05/18 22:30 124 H 20 96 08/05/18 22:09 100.2 F H 100 Weight Weight 104.871 kg Most Recent Monitor Data Heart Rate from ECG 104 NIBP 102/61 NIBP BP-Mean 74 Respiration from ECG 18 SpO2 99 Result Diagrams: 08/06/18 04:52 08/06/18 04:52 Phys Exam - Physical Examination Constitutional: NAD diaphoretic HEENT: PERRLA, moist MMs Respiratory: no wheezing, clear to auscultation bilateral Cardiovascular: no significant murmur Gastrointestinal: soft, non-tender, no distention, positive bowel sounds Musculoskeletal: no edema, pulses present Neurological: non-focal, moves all 4 limbs Skin: no rash, cap refill <2 seconds Deviation from normal: open wound from old L fem central line, not erythematous/ weeping Dx/Plan (1) Acute encephalopathy Code(s): G93.40 - ENCEPHALOPATHY, UNSPECIFIED Status: Acute (2) Altered mental status Code(s): R41.82 - ALTERED MENTAL STATUS, UNSPECIFIED Status: Acute (3) Hyponatremia Code(s): E87.1 - HYPO-OSMOLALITY AND HYPONATREMIA Status: Acute (4) Seizures Code(s): R56.9 - UNSPECIFIED CONVULSIONS Status: Acute (5) Adrenal insufficiency Code(s): E27.40 - UNSPECIFIED ADRENOCORTICAL INSUFFICIENCY Status: Chronic (6) CKD (chronic kidney disease) stage 3, GFR 30-59 ml/min Status: Chronic (7) COPD (chronic obstructive pulmonary disease) Status: Chronic Qualifiers: COPD type: COPD with acute exacerbation Qualified Code(s): J44.1 - Chronic obstructive pulmonary disease with (acute) exacerbation (8) Prostate cancer Code(s): C61 - MALIGNANT NEOPLASM OF PROSTATE Status: Chronic (9) Adrenal insufficiency Code(s): E27.40 - UNSPECIFIED ADRENOCORTICAL INSUFFICIENCY Status: Suspected (10) SIRS (systemic inflammatory response syndrome) Code(s): R65.10 - SIRS OF NON-INFECTIOUS ORIGIN W/O ACUTE ORGAN DYSFUNCTION Status: Resolved - Plan Plan: This is a 68 yo M being admitted for AMS. 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, seizure disorder) - Sedation: none - AxOx2 - dilantin level low, restarted home meds, ordered prolactin - CT Head w contrast to r/o mets to brain, MRI normal on 06/26/18 Resp (hypoxia, JUDI) - CXR no acute process - 2-3 L overnight, no cough CV (normotensive, hx CAD) - Pressors: none - trop neg x1 - dig level subtherapeutic GI () - adv diet as tolerated /Renal (s/p transplant) -Cr 0.95 - mag and phos low, replete Infection (L groin wound) - open but not erythematous/weeping - cont vanc, yolanda- consider MRSA from wound and pseudomonas from long hospital stay - CXR, UA, WBC all WNL - Procal 0.82 Endo () Lines/Tubes: rt fem central line Code status: full PPx: lovenox Dispo: >2 midnights Addendum - Attending - Attending Attestation Date/Time: 08/06/18 1206 I personally evaluated the patient and discussed the management with Dr. Samuels. I agree with and repeated the History, Examination, Assessment and Plan documented above with any addition or exceptions noted below. Patient AOx3 today and has no complaints. Denies cp/sob/palp/dizziness. No f/ c this AM. Adrenal crisis possible with sepsis possibly 2/2 complicated UTI vs viral URI vs other -stress dose, continue antibiotics, monitor; no cortisol send on admit h/o kidney transplant -consult Dr. Kay as he is in IC0 drugs h/o seizure disorder -restart home meds Prostate CA -monitor At this point I have low suspicion of PE and the family declines further testing for them.
[2018-08-06] MEDS ORDERED: CCU Electrolyte Replacement 1 EACH IVPB SCH (06:27)
[2018-08-06] MEDS: HumaLOG 300 UNITS/3 ML VIAL SC PRN (06:27)
[2018-08-06] MEDS ORDERED: Potassium Phosphate 15 MMOL in Sodium Chloride 0.9% 250 ML 250 ML IV PRN (06:45)
[2018-08-06] MEDS ORDERED: Magnesium 2 GM/NS 0.9% 100 ML 2 GM in Premix Bag 1 BAG IVPB PRN (06:45)
[2018-08-06] MEDS ORDERED: Potassium Chloride 40 MEQ in Sodium Chloride 0.9% 250 ML 250 ML IVPB PRN (06:45)
[2018-08-06] MEDS ORDERED: Potassium Chloride 20 MEQ TAB PO PRN (06:45)
[2018-08-06] MEDS ORDERED: Potassium Phosphate 12 MMOL in Sodium Chloride 0.9% 250 ML 250 ML IV PRN (06:45)
[2018-08-06] MEDS ORDERED: Potassium Phosphate 9 MMOL in Sodium Chloride 0.9% 100 ML IVPB PRN (06:45)
[2018-08-06] MEDS ORDERED: CCU ELECTROLYTE REPLACEMENT PROTOCOL FS PRN (06:45)
[2018-08-06] MEDS ORDERED: Magnesium Oxide 400 MG TAB PO PRN ×2 (06:45)
[2018-08-06] MEDS ORDERED: Potassium Chloride 40 MEQ in Premix Bag 1 BAG IVPB PRN (06:45)
[2018-08-06 06:58] LABS: Troponin I 0.016 ng/mL (< 0.028)
[2018-08-06] MEDS ORDERED: Potassium Chloride 20 MEQ TAB PO SCH (08:00)
[2018-08-06] MEDS: Allopurinol 100 MG TAB PO SCH (08:35)
[2018-08-06] MEDS: Calcium Carbonate 500 MG ChewTAB PO SCH ×2 (08:36→21:24)
[2018-08-06] MEDS: Digoxin 0.125 MG TAB PO SCH (08:36)
[2018-08-06] MEDS: Montelukast Sodium 10 mg Tablet PO SCH (08:37)
[2018-08-06] MEDS: Folic Acid 1 MG TAB PO SCH (08:38)
[2018-08-06] MEDS: Atorvastatin Calcium 10 MG TAB PO SCH (08:38)
[2018-08-06] MEDS: Calcitriol 0.25 MCG CAP PO SCH (08:38)
[2018-08-06] MEDS: Gabapentin 300 MG CAP PO SCH (08:39)
[2018-08-06] MEDS: Aspirin 325 mg Enteric Coated Tablet PO SCH (08:39)
[2018-08-06] MEDS: Docusate 100 MG CAP PO SCH ×2 (08:40→21:34)
[2018-08-06] MEDS: Enoxaparin Sodium 40 MG/0.4 ML SYRINGE SC SCH (08:40)
[2018-08-06] MEDS: Magnesium Oxide 250 MG TAB PO SCH (08:42)
[2018-08-06] MEDS ORDERED: Bumetanide 1 MG TAB PO SCH (09:00)
[2018-08-06] MEDS ORDERED: Vancomycin HCl 1.5 GM in Sodium Chloride 0.9% 250 ML 300 ML IVPB SCH (09:00)
[2018-08-06] MEDS ORDERED: Magnesium Oxide 400 MG TAB PO SCH (09:00)
[2018-08-06] MEDS ORDERED: Amlodipine 5 MG TAB PO SCH (09:00)
[2018-08-06] MEDS ORDERED: Abiraterone Acetate [Zytiga] 1,000 MG PO SCH (09:00)
[2018-08-06] MEDS ORDERED: Insulin Glargine 35 UNITS in Pre-Filled Syringe 1 EACH SC SCH (09:00)
--- NOTE | 2018-08-06 10:05 | PDOC.EVN ---
Event Note - Event Note Event Note: Patient and decline CT with contrast at this time 2/ fear of kidney injury Will hold off for now and await pre owned sales consultant input Nephro consulted to review meds in regards to kidney transplant ID consulted in regards to fever without source + history of possible HSV encephalitis On further review states he has been vomiting up his meds for 2 days so did not receive steroids Patients is much better this AM, does not remember last night at all AMS could be related to Adrenal crisis as patient has responded to stress dose steroids. Addendum - Attending - Attending Attestation Date/Time: 08/06/18 1210 Low suspicion for PE at this time. Will consider BLE dopplers V/Q scan. Discussed in detail with family.
[2018-08-06] MEDS: Mycophenolate 250 MG CAP PO SCH ×2 (10:30→21:23)
[2018-08-06 11:44] VITALS: BMI 34.9
[2018-08-06] MEDS: Acetaminophen 325 MG TAB PO PRN (11:49)
--- NOTE | 2018-08-06 18:52 | CON ---
DATE OF CONSULTATION: REASON FOR CONSULTATION: Weakness, cough, and change in mental status. HISTORY OF PRESENT ILLNESS: Mr. Joseph is a 68-year-old patient, whom I had seen at the end of last year with a history of type 2 diabetes and renal transplant on chronic immunosuppressive medications as well as history of gout and metastatic prostate cancer. I had seen him in 2017 with some myalgias fever and confusional state. He was treated with broad-spectrum antimicrobial regimen and improved. Subsequently, he was brought back at the end of 18 with decreased mental state and low-grade temperature elevation. His temperature then was 100.6, blood pressure 130/60, pulse 104, and O2 saturation 95%. The patient was currently drowsy and did not cooperate with the examination. The abdomen was mildly distended. Lungs without any abnormalities. The heart exam was normal except for diminished heart sounds. The patient had diffuse stiffness. His labs showed pH 7.4, pCO2 of 31 , and pO2 of 90. WBC count 8.9, platelets 214 with 69% neutrophils. Sodium 132, creatinine 1.71 with a baseline of 1.08. Ammonia was 18, albumin 3.1. Liver functions otherwise normal. Bilirubin 0.9. CMV DNA PCR in December 2017 was negative. Brain MRI had some clusters of multiple small old lacunar infarctions in the past. CSF evaluation was attempted, but the radiologists could not obtain CSF. He was treated empirically for herpes simplex encephalitis. He did improve over the course of the hospitalization; although, we were not convinced that the herpes simplex treatment anything to do with it. The patient had a nonreactive syphilis antibody. Urine histoplasma antigen was negative. Complement C4 was high at 46. CHRISTOPHER screen was negative. Blood cultures remained negative through the hospital stay except for 1 sample with Corynebacterium, which was felt to represent contaminant and another sample of Enterococcus faecalis, which was felt to be colonization of the left common femoral central line. At this time, he was brought in from home with inability to ambulate and change in mental status, confusional state. There was no vomiting reported by the . His heart rate was 80s to 90s, blood pressure 135/70, blood glucose 131. The patient has been given DuoNeb, Zyloprim, Elavil, Ecotrin, Lipitor, Tums, Benadryl, Colace, Folvite, Neurontin, meropenem, mycophenolate, ondansetron, anti-androgen, Zytiga, and phenytoin. Currently, Mr. Joseph is drowsy. He will arouse when I call his name and he will answer some questions, but immediately falls back to sleep. He will follow some commands. I could not get much of a history from him. 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 FAMILY HISTORY: Noncontributory. SOCIAL HISTORY: Never smoker. ALLERGIES: LATEX, MORPHINE, IODINE, PENICILLIN, AND TETRACYCLINE. CURRENT MEDICATIONS: Include: 1. Tylenol. 2. DuoNeb. 3. Zyloprim. 4. Elavil. 5. Ecotrin. 6. Lipitor. 7. Tums. 8. Colace. 9. Folvite. 10. Meropenem. 11. Montelukast. 12. Mycophenolate. 13. Ondansetron. 14. Pantoprazole. 15. Zytiga. 16. Phenytoin. PHYSICAL EXAMINATION: VITAL SIGNS: T-max 100.2, currently 98.4, blood pressure 125/64, pulse 16, and O2 saturation 100%. SKIN: Not remarkable. The patient has a peripheral IV access and is voiding in the urinal. HEENT: There is no lymphadenopathy. Ocular movements are conjugate. Sclerae are white. Pupils are equal. Oral cavity with only a few remaining teeth. NECK: Supple. LUNGS: Symmetric air entry. HEART: S1 and S2. Regular rate. No S3 or S4. ABDOMEN: Soft. Not distended or tender. No ascites. No bladder distention. : No genital abnormalities. EXTREMITIES: He moves extremities, but is diffusely weak. Plantar responses are indifferent. No clonus. He is drowsy, will wake up briefly when his name was called, answered few questions but not many, immediately fell asleep. CURRENT LABORATORY DATA: White cell count is 1.4 and now is up to 7.1 and 6.6, hemoglobin is up from 5.1 to 9.1, and platelets are up from initial results. I believe that the original initial lab values are probably diluted and I do not believe that the first set is accurate. There is no way that the platelet count would increase from 4k to normal in just 3 hours even with transfusions of platelets. The direct smear showed a little bit of various abnormalities in the red cells, but nothing really tremendous. He did have slight schistocytes noted. Sodium was 131, creatinine 1.02, phosphorus 2.0, and magnesium 1.2. Albumin 2.9, lactic acid 1.3. Urinalysis was essentially normal. Phenytoin was less than 1.0 and digoxin 0.33. Microbiology with gram-negative ana m in the urine. Quantitation showed less than 5000 CFUs most likely contaminant. Cryptococcus antigen was negative and respiratory virus PCR panel with no virus detected. Two sets of blood cultures with no growth thus far. Chest x-ray with no infiltrates. The patient had an abdomen and pelvis CT scan a few days ago, which showed no lung infiltrates. Liver, spleen, and pancreas normal. Kidneys severely atrophic. Dilated hydronephrotic atrophic right kidney. The patient had a respiratory virus nucleic acid amplification test, which showed influenza A. ASSESSMENT: 1. Type 2 diabetes with end-stage renal disease and eventual renal transplant. 2. Adrenal insufficiency, which is iatrogenic from chronic corticosteroids. 3. Episodes of fever with toxic metabolic encephalopathy, which have resulted in admissions in the past. Those are from different etiologies. Full CSF evaluation was not completed because the fluoroscopy-guided tap was not successful in the recent admission. He was treated empirically for herpes simplex, but I do not believe that he did actually have herpes simplex encephalitis, although, I cannot rule that out completely. 4. Influenza A infection with fever and encephalopathy. DISCUSSION: The patient has been diagnosed with influenza A per nucleic acid amplification test and this is the likely reason for the current syndrome. We would advise treating this and I do not think he needs a spinal fluid evaluation at this point in time since it is pretty straightforward diagnosis. Influenza virus can be associated with encephalitis but in his case this is more likely to represent encephalopathy which should improve quickly. If not we might have to consider another attempt at CSF evaluation but not yet. Other possibilities including other opportunistic processes are not completely ruled out in view of his immunosuppression, but we will not initiate workup until the issue of the influenza is resolved to see what his clinical response to treatment is. Job ID: [id number] [facility]
[2018-08-06] MEDS ORDERED: Insulin Glargine 25 UNITS in Pre-Filled Syringe 1 EACH SC SCH (21:00)
[2018-08-06] MEDS: Ondansetron ODT 4 MG TAB PO PRN (21:22)
[2018-08-06] MEDS: guaiFENesin ER 600 MG TAB PO SCH (21:23)
[2018-08-06] MEDS: Amitriptyline HCl 10 MG TAB PO SCH (21:23)
[2018-08-06] MEDS: Oseltamivir 75 MG CAP PO SCH (21:24)
[2018-08-07] MEDS: Acetaminophen 325 MG TAB PO PRN ×3 (01:09→09:48)
[2018-08-07] MEDS: diphenhydrAMINE 25 MG CAP PO PRN ×2 (01:09→22:39)
[2018-08-07] MEDS: Sodium Chloride 0.9% 1,000 ML IV SCH ×4 (03:19→22:42)
[2018-08-07] MEDS: Ondansetron ODT 4 MG TAB PO PRN (05:32)
--- NOTE | 2018-08-07 05:35 | PDOC.FM ---
- Subjective Subjective: Nauseated this morning. Reports he has pain where IO cath was inserted in ED when they were not able to gain vascular access. He reports taking tramadol at home. Appetite is low due to nausea. He is A&O x4. Still feels weak. No other complaints. - Objective MAR Reviewed: Yes Vital Signs & Weight: Vital Signs (12 hours) Temp Pulse Resp Pulse Ox 08/07/18 04:00 98.5 F 08/07/18 02:35 109 H 20 98 08/07/18 00:00 98.9 F 08/06/18 22:50 98 20 100 08/06/18 20:00 98.6 F 100 08/06/18 19:03 90 18 97 Weight Admit Weight 104.871 kg Weight 104.372 kg Most Recent Monitor Data Heart Rate from ECG 107 NIBP 161/68 NIBP BP-Mean 99 Respiration from ECG 16 SpO2 100 I&O: 08/05/18 08/06/18 08/07/18 06:59 06:59 06:59 Intake Total 1095 2640 Output Total 850 Balance 1095 1790 Result Diagrams: 08/07/18 05:42 08/07/18 05:42 Phys Exam - Physical Examination Constitutional: NAD HEENT: moist MMs Neck: supple Respiratory: no wheezing, clear to auscultation bilateral Cardiovascular: RRR, no significant murmur Gastrointestinal: soft, non-tender, positive bowel sounds Musculoskeletal: pulses present Neurological: non-focal Psychiatric: normal affect, A&O x 3 Skin: normal turgor Dx/Plan (1) Acute encephalopathy Code(s): G93.40 - ENCEPHALOPATHY, UNSPECIFIED Status: Acute (2) Altered mental status Code(s): R41.82 - ALTERED MENTAL STATUS, UNSPECIFIED Status: Acute (3) Seizures Code(s): R56.9 - UNSPECIFIED CONVULSIONS Status: Acute (4) Adrenal insufficiency Code(s): E27.40 - UNSPECIFIED ADRENOCORTICAL INSUFFICIENCY Status: Chronic (5) CAD (coronary artery disease) Code(s): I25.10 - ATHSCL HEART DISEASE OF [place] CORONARY ARTERY W/O ANG PCTRS Status: Chronic Qualifiers: Coronary Disease-Associated Artery/Lesion type: [place] artery Associated angina: without angina (6) CKD (chronic kidney disease) stage 3, GFR 30-59 ml/min Status: Chronic (7) COPD (chronic obstructive pulmonary disease) Status: Chronic Qualifiers: COPD type: COPD with acute exacerbation Qualified Code(s): J44.1 - Chronic obstructive pulmonary disease with (acute) exacerbation (8) GERD (gastroesophageal reflux disease) Code(s): K21.9 - GASTRO-ESOPHAGEAL REFLUX DISEASE WITHOUT ESOPHAGITIS Status: Chronic (9) Hx of kidney transplant Status: Chronic (10) Hyperlipidemia Code(s): E78.5 - HYPERLIPIDEMIA, UNSPECIFIED Status: Chronic (11) Hypothyroid Code(s): E03.9 - HYPOTHYROIDISM, UNSPECIFIED Status: Chronic (12) IDDM (insulin dependent diabetes mellitus) Code(s): E11.9 - TYPE 2 DIABETES MELLITUS WITHOUT COMPLICATIONS; Z79.4 - SKILLED NURSING (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 OF INSULIN Status: Chronic (13) Morbid obesity with BMI of 40.0-44.9, adult Code(s): E66.01 - MORBID (SEVERE) OBESITY DUE TO EXCESS CALORIES; Z68.41 - BODY MASS INDEX (BMI) 40.0-44.9, ADULT Status: Chronic (14) Normocytic anemia Code(s): D64.9 - ANEMIA, UNSPECIFIED Status: Chronic (15) JUDI on CPAP Code(s): G47.33 - OBSTRUCTIVE SLEEP APNEA (ADULT) (PEDIATRIC) Status: Chronic (16) Prostate cancer Code(s): C61 - MALIGNANT NEOPLASM OF PROSTATE Status: Chronic - Plan Plan: 68 yo male presented with acute encephalopathy likely 2/2 influenza Influenza - Continue Tamiflu - Dr Gerard consulted, apprec recs E coli UTI - Adequately treated with Ceftriaxone and Meropenem - Not currently on antibiotics Encephalopathy - A&O x3 - CT Head w contrast to r/o mets to brain, MRI normal on 06/26/18 Seizure disorder - Dilantin level low - Continue home meds Acute Hypoxia - CXR no acute process - 2-3 L overnight, no cough L groin wound - Vanc, yolanda stopped 08/07 - CXR, UA, WBC all WNL - Procal 0.82 CAD - trop neg x1 s/p Renal transplant on immunosuppresion - Continue home meds - Nephrology consulted, apprec recs HLD - Continue home meds Adrenal insufficiency 2/2 chronic steroid use - Given stress dose steroids DMII - Lantus 35U in AM, 25U HS - Mild SSI & Hypoglycemic protocol - CC diet - Accuchecks ACHS GERD - continue home meds Gout - Continue home meds Neuropathy - Continue home meds Hx of HSV encephalitis - IR guided LP recommended in future. Physical deconditioning - PT/OT Hypomagnesium, resolved Hypophosphatemia, resolved Prostate Cancer Lines/Tubes: rt fem central line Code status: FULL DVT ppx: Lovenox PCP: Dr Christina Addendum - Attending - Attending Attestation Date/Time: 08/07/18 3970 I personally evaluated the patient and discussed the management with Dr. Cristobal I agree with the History, Examination, Assessment and Plan documented above with any addition or exceptions noted below.Patient appears to be slowly improved. Deconditioned and continue observation advance activities as tolerated.
[2018-08-07 05:51] LABS: #Eosinphils 0.1 thou/uL (0.0-0.7); #Lymphocytes 1.6 thou/uL (1.20-3.40); #Monocytes 0.5 thou/uL (0.11-0.59); %Basophils 0.7 % (0.0-1.0); %Eosinophils 2.3 % (0.0-10.0); %Lymphocytes 30.5 % (21.0-51.0); %Monocytes 8.7 % (0.0-10.0); %Neutrophils 57.8 % (42.0-75.0); Hemoglobin 7.8 g/dL (14.0-18.0); Mean Corpuscular HGB CONC 32.1 g/dL (32.0-36.0); Mean Corpuscular Hemoglobin 32.4 pg (27.0-31.0); Mean Platelet Volume 5.9 fL (7.4-10.4); Platelet Count 295 thou/uL (130-400); RBC Distribution Width 19.4 % (11.5-14.5); White Blood Cell (WBC) Count 5.2 thou/uL (4.8-10.8)
[2018-08-07 06:17] LABS: ALT (SGPT) 11 U/L (8-55); AST (SGOT) 54 U/L (5-34); Albumin 2.6 g/dL (3.4-4.8); Alkaline Phosphatase 141 U/L (40-150); Anion Gap 12 mmol/L (10-20); BUN (Urea Nitrogen) 9 mg/dL (8.4-25.7); Bilirubin, Total 0.3 mg/dL (0.2-1.2); Calc. Creatinine Clearance 138 mL/min (70-130); Calcium 7.9 mg/dL (7.8-10.44); Carbon Dioxide 19 mmol/L (23-31); Chloride 106 mmol/L (98-107); Estimated GFR-MDRD Greater than 90; Globulin 2.1 g/dL (2.4-3.5); Glucose 113 mg/dL (80-115); Potassium 3.8 mmol/L (3.5-5.1); Protein, Total 4.7 g/dL (5.8-8.1); Sodium 133 mmol/L (136-145)
[2018-08-07 07:08] LABS: Vancomycin, Trough 14.1 ug/mL
[2018-08-07] MEDS ORDERED: traMADol HCl 50 MG TAB PO SCH (08:30)
[2018-08-07] MEDS: Calcium Carbonate 500 MG ChewTAB PO SCH ×3 (09:46→22:38)
[2018-08-07] MEDS: Oseltamivir 75 MG CAP PO SCH ×2 (09:46→22:37)
[2018-08-07] MEDS: Mycophenolate 250 MG CAP PO SCH ×2 (09:46→22:37)
[2018-08-07] MEDS: Magnesium Oxide 250 MG TAB PO SCH (09:46)
[2018-08-07] MEDS: Folic Acid 1 MG TAB PO SCH (09:47)
[2018-08-07] MEDS: Aspirin 325 mg Enteric Coated Tablet PO SCH (09:47)
[2018-08-07] MEDS: Calcitriol 0.25 MCG CAP PO SCH (09:47)
[2018-08-07] MEDS: Gabapentin 300 MG CAP PO SCH (09:47)
[2018-08-07] MEDS: Allopurinol 100 MG TAB PO SCH (09:47)
[2018-08-07] MEDS: guaiFENesin ER 600 MG TAB PO SCH ×2 (09:47→22:38)
[2018-08-07] MEDS: Digoxin 0.125 MG TAB PO SCH (09:48)
[2018-08-07] MEDS: Atorvastatin Calcium 10 MG TAB PO SCH (09:48)
[2018-08-07] MEDS: Montelukast Sodium 10 mg Tablet PO SCH (09:48)
[2018-08-07] MEDS: Enoxaparin Sodium 40 MG/0.4 ML SYRINGE SC SCH (09:48)
[2018-08-07] MEDS: Ondansetron PF 4 MG/2 ML Vial IVP PRN ×2 (09:49→15:59)
[2018-08-07] MEDS: Docusate 100 MG CAP PO SCH ×2 (10:59→22:38)
[2018-08-07] MEDS: Metoclopramide HCl 10 MG/2 ML VIAL IVP SCH (22:36)
[2018-08-07] MEDS: Amitriptyline HCl 10 MG TAB PO SCH (22:39)
[2018-08-07] MEDS: Hydrocortisone 10 mg Tablet PO SCH (22:42)
[2018-08-08] MEDS: Acetaminophen 325 MG TAB PO PRN ×2 (05:28→07:44)
[2018-08-08] MEDS: Metoclopramide HCl 10 MG/2 ML VIAL IVP SCH ×3 (05:28→20:30)
[2018-08-08 05:57] LABS: #Basophils 0.1 thou/uL (0.0-0.2); #Eosinphils 0.3 thou/uL (0.0-0.7); #Monocytes 0.4 thou/uL (0.11-0.59); #Neutrophils 1.9 thou/uL (1.40-6.50); %Basophils 1.8 % (0.0-1.0); %Eosinophils 6.1 % (0.0-10.0); %Lymphocytes 42.9 % (21.0-51.0); %Monocytes 8.6 % (0.0-10.0); %Neutrophils 40.6 % (42.0-75.0); Hemoglobin 7.3 g/dL (14.0-18.0); Mean Corpuscular HGB CONC 31.8 g/dL (32.0-36.0); Mean Corpuscular Hemoglobin 32.2 pg (27.0-31.0); Mean Platelet Volume 6.2 fL (7.4-10.4); Platelet Count 280 thou/uL (130-400); RBC Distribution Width 19.4 % (11.5-14.5); Red Blood Cell (RBC) Count 2.28 mill/uL (4.70-6.10); White Blood Cell (WBC) Count 4.6 thou/uL (4.8-10.8)
--- NOTE | 2018-08-08 05:59 | PDOC.FM ---
- Subjective Subjective: Had nausea overnight resolved with reglan. Also elevated blood pressures labetalol was added. He is feeling better just having a lot of coughing and some wheezing. He has been getting neb treatments q4h scheduled. Voiding and stooling. - Objective MAR Reviewed: Yes Vital Signs & Weight: Vital Signs (12 hours) Temp Pulse Ox 08/08/18 03:48 99.0 F 08/08/18 03:18 98 08/08/18 00:00 98.3 F 08/07/18 23:31 98 08/07/18 20:00 99.2 F 100 08/07/18 19:17 96 08/07/18 19:16 99 Weight Admit Weight 104.871 kg Weight 106.594 kg Most Recent Monitor Data Heart Rate from ECG 94 NIBP 166/75 NIBP BP-Mean 105 Respiration from ECG 26 SpO2 99 I&O: 08/06/18 08/07/18 08/08/18 06:59 06:59 06:59 Intake Total 1095 4472 Output Total 1650 Balance 1095 2822 Result Diagrams: 08/08/18 05:47 08/08/18 05:47 Phys Exam - Physical Examination Constitutional: NAD HEENT: moist MMs Neck: supple Respiratory: wheezing present Cardiovascular: RRR, no significant murmur Gastrointestinal: soft, positive bowel sounds mild tenderness diffusely Musculoskeletal: no edema Neurological: non-focal, moves all 4 limbs Psychiatric: normal affect, A&O x 3 Skin: cap refill <2 seconds Dx/Plan (1) Acute encephalopathy Code(s): G93.40 - ENCEPHALOPATHY, UNSPECIFIED Status: Acute (2) Altered mental status Code(s): R41.82 - ALTERED MENTAL STATUS, UNSPECIFIED Status: Acute (3) Seizures Code(s): R56.9 - UNSPECIFIED CONVULSIONS Status: Acute (4) Adrenal insufficiency Code(s): E27.40 - UNSPECIFIED ADRENOCORTICAL INSUFFICIENCY Status: Chronic (5) CAD (coronary artery disease) Code(s): I25.10 - ATHSCL HEART DISEASE OF [place] CORONARY ARTERY W/O ANG PCTRS Status: Chronic Qualifiers: Coronary Disease-Associated Artery/Lesion type: [place] artery Associated angina: without angina (6) CKD (chronic kidney disease) stage 3, GFR 30-59 ml/min Status: Chronic (7) COPD (chronic obstructive pulmonary disease) Status: Chronic Qualifiers: COPD type: COPD with acute exacerbation Qualified Code(s): J44.1 - Chronic obstructive pulmonary disease with (acute) exacerbation (8) GERD (gastroesophageal reflux disease) Code(s): K21.9 - GASTRO-ESOPHAGEAL REFLUX DISEASE WITHOUT ESOPHAGITIS Status: Chronic (9) Hx of kidney transplant Status: Chronic (10) Hyperlipidemia Code(s): E78.5 - HYPERLIPIDEMIA, UNSPECIFIED Status: Chronic (11) Hypothyroid Code(s): E03.9 - HYPOTHYROIDISM, UNSPECIFIED Status: Chronic (12) IDDM (insulin dependent diabetes mellitus) Code(s): E11.9 - TYPE 2 DIABETES MELLITUS WITHOUT COMPLICATIONS; Z79.4 - CLASSIFIED ADVERTISING SUPERVISOR (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 OF INSULIN Status: Chronic (13) Morbid obesity with BMI of 40.0-44.9, adult Code(s): E66.01 - MORBID (SEVERE) OBESITY DUE TO EXCESS CALORIES; Z68.41 - BODY MASS INDEX (BMI) 40.0-44.9, ADULT Status: Chronic (14) Normocytic anemia Code(s): D64.9 - ANEMIA, UNSPECIFIED Status: Chronic (15) JUDI on CPAP Code(s): G47.33 - OBSTRUCTIVE SLEEP APNEA (ADULT) (PEDIATRIC) Status: Chronic (16) Prostate cancer Code(s): C61 - MALIGNANT NEOPLASM OF PROSTATE Status: Chronic - Plan Plan: 68 yo male presented with acute encephalopathy likely 2/2 influenza Influenza - Sepsis resolved. Fem line still in place. Pt refusing peripheral access. Will monitor closely. - Continue Tamiflu - Dr Gerard consulted, apprec recs - Transfer to medical E coli UTI - Adequately treated with Ceftriaxone and Meropenem - Not currently on antibiotics Encephalopathy - A&O x3 - CT Head w contrast to r/o mets to brain, MRI normal on 06/26/18 Seizure disorder - Dilantin level initally low - Continue home meds L groin wound - Vanc, yolanda stopped 08/07 - CXR, UA, WBC all WNL - Procal 0.82 CAD - trop neg x1 s/p Renal transplant on immunosuppresion - Continue home meds - Nephrology consulted, apprec recs HLD - Continue home meds Adrenal insufficiency 2/2 chronic steroid use - Given stress dose steroids DMII - Lantus 35U in AM, 25U HS - Mild SSI & Hypoglycemic protocol - CC diet - Accuchecks ACHS GERD - continue home meds Gout - Continue home meds Neuropathy - Continue home meds Hx of HSV encephalitis - IR guided LP recommended in future. Physical deconditioning - PT/OT Hypomagnesium, resolved Hypophosphatemia, resolved Acute Hypoxia, resolved - CXR no acute process Prostate Cancer Lines/Tubes: rt fem central line Code status: FULL DVT ppx: Lovenox PCP: Dr Christina Addendum - Attending - Attending Attestation Date/Time: 08/09/18 8492 I personally evaluated the patient and discussed the management with Dr. Cristobal I agree with the History, Examination, Assessment and Plan documented above with any addition or exceptions noted below.
[2018-08-08 06:17] LABS: ALT (SGPT) 9 U/L (8-55); AST (SGOT) 43 U/L (5-34); Albumin 2.3 g/dL (3.4-4.8); Alkaline Phosphatase 124 U/L (40-150); Anion Gap 12 mmol/L (10-20); BUN (Urea Nitrogen) 6 mg/dL (8.4-25.7); Bilirubin, Total 0.3 mg/dL (0.2-1.2); Calc. Creatinine Clearance 175 mL/min (70-130); Calcium 7.1 mg/dL (7.8-10.44); Carbon Dioxide 17 mmol/L (23-31); Chloride 110 mmol/L (98-107); Estimated GFR-MDRD Greater than 90; Globulin 1.7 g/dL (2.4-3.5); Glucose 109 mg/dL (80-115); Potassium 3.2 mmol/L (3.5-5.1); Sodium 136 mmol/L (136-145)
[2018-08-08] MEDS ORDERED: traMADol HCl 50 MG TAB PO PRN (08:15)
[2018-08-08] MEDS: Digoxin 0.125 MG TAB PO SCH (09:02)
[2018-08-08] MEDS: Allopurinol 100 MG TAB PO SCH (09:02)
[2018-08-08] MEDS: Enoxaparin Sodium 40 MG/0.4 ML SYRINGE SC SCH (09:02)
[2018-08-08] MEDS: Gabapentin 300 MG CAP PO SCH (09:03)
[2018-08-08] MEDS: Aspirin 325 mg Enteric Coated Tablet PO SCH (09:03)
[2018-08-08] MEDS: Atorvastatin Calcium 10 MG TAB PO SCH (09:03)
[2018-08-08] MEDS: guaiFENesin ER 600 MG TAB PO SCH ×2 (09:04→20:45)
[2018-08-08] MEDS: Montelukast Sodium 10 mg Tablet PO SCH (09:04)
[2018-08-08] MEDS: Magnesium Oxide 250 MG TAB PO SCH (09:04)
[2018-08-08] MEDS: Calcitriol 0.25 MCG CAP PO SCH (09:04)
[2018-08-08] MEDS: Mycophenolate 250 MG CAP PO SCH ×2 (09:04→20:41)
[2018-08-08] MEDS: Calcium Carbonate 500 MG ChewTAB PO SCH ×2 (09:05→20:36)
[2018-08-08] MEDS: Folic Acid 1 MG TAB PO SCH (09:05)
[2018-08-08] MEDS: Docusate 100 MG CAP PO SCH ×2 (09:07→20:51)
[2018-08-08] MEDS: Oseltamivir 75 MG CAP PO SCH ×2 (09:14→20:38)
[2018-08-08] MEDS: Hydrocortisone 10 mg Tablet PO SCH ×2 (09:14→20:39)
[2018-08-08] MEDS: Ondansetron PF 4 MG/2 ML Vial IVP PRN (09:19)
[2018-08-08] MEDS: Sodium Chloride 0.9% 1,000 ML IV SCH ×2 (13:00→20:29)
--- NOTE | 2018-08-08 17:15 | PRG ---
DATE OF SERVICE: 08/08/2018 SUBJECTIVE: He is feeling much better. He is oriented and some cough, but not much. No abdominal pain or diarrhea. No headaches. He seems to have defervesced. OBJECTIVE: VITAL SIGNS: Other vital signs are unremarkable. GENERAL: Awake, alert, oriented. HEENT: Ocular movements normal. LUNGS: With few rhonchi scattered. HEART: S1 and S2, regular rate. ABDOMEN: Soft. Not distended or tender. No ascites. No bladder distention. EXTREMITIES: Moves all extremities equally. LABORATORY DATA: White cell count 4.6, hemoglobin 7.3, MCV 101, platelets 280. Sodium 136, creatinine 0.6. AST 43. Other enzymes normal. Albumin 2.3. Urinalysis unremarkable. Microbiology with influenza A detected in the respiratory virus PCR panel. ASSESSMENT AND DISCUSSION: Type 2 diabetes, end-stage renal disease with renal transplant and renal insufficiency in the past, now with influenza A with toxic metabolic encephalopathy, which has recovered or resolved after treatment. The patient should be eligible for discharge planning starting tomorrow. Job ID: [id number]
[2018-08-08] MEDS: Amitriptyline HCl 10 MG TAB PO SCH (20:43)
[2018-08-08] MEDS: diphenhydrAMINE 25 MG CAP PO PRN (22:13)
[2018-08-09] MEDS: Sodium Chloride 0.9% 1,000 ML IV SCH ×4 (01:17→21:44)
[2018-08-09] MEDS: Metoclopramide HCl 10 MG/2 ML VIAL IVP SCH ×3 (04:32→21:44)
[2018-08-09 05:01] LABS: #Eosinphils 0.3 thou/uL (0.0-0.7); #Lymphocytes 1.9 thou/uL (1.20-3.40); #Monocytes 0.2 thou/uL (0.11-0.59); #Neutrophils 1.9 thou/uL (1.40-6.50); %Basophils 0.9 % (0.0-1.0); %Eosinophils 7.2 % (0.0-10.0); %Lymphocytes 44.3 % (21.0-51.0); %Monocytes 5.3 % (0.0-10.0); %Neutrophils 42.4 % (42.0-75.0); Hemoglobin 7.4 g/dL (14.0-18.0); Mean Corpuscular HGB CONC 31.6 g/dL (32.0-36.0); Mean Corpuscular Hemoglobin 32.1 pg (27.0-31.0); Mean Platelet Volume 6.4 fL (7.4-10.4); Platelet Count 265 thou/uL (130-400); RBC Distribution Width 19.3 % (11.5-14.5); White Blood Cell (WBC) Count 4.4 thou/uL (4.8-10.8)
[2018-08-09 05:22] LABS: ALT (SGPT) 8 U/L (8-55); AST (SGOT) 32 U/L (5-34); Albumin 2.4 g/dL (3.4-4.8); Alkaline Phosphatase 123 U/L (40-150); Anion Gap 12 mmol/L (10-20); BUN (Urea Nitrogen) 4 mg/dL (8.4-25.7); Bilirubin, Total 0.3 mg/dL (0.2-1.2); Calc. Creatinine Clearance 187 mL/min (70-130); Calcium 7.4 mg/dL (7.8-10.44); Carbon Dioxide 18 mmol/L (23-31); Chloride 109 mmol/L (98-107); Estimated GFR-MDRD Greater than 90; Globulin 1.9 g/dL (2.4-3.5); Glucose 121 mg/dL (80-115); Potassium 3.2 mmol/L (3.5-5.1); Protein, Total 4.3 g/dL (5.8-8.1); Sodium 136 mmol/L (136-145)
[2018-08-09] MEDS ORDERED: Potassium Chloride 20 MEQ TAB PO SCH (08:00)
[2018-08-09] MEDS: Calcium Carbonate 500 MG ChewTAB PO SCH ×2 (09:14→21:41)
[2018-08-09] MEDS: Benzonatate 100 MG CAP PO PRN ×3 (09:14→21:47)
[2018-08-09] MEDS: Mycophenolate 250 MG CAP PO SCH ×2 (09:14→21:42)
[2018-08-09] MEDS: Allopurinol 100 MG TAB PO SCH (09:14)
[2018-08-09] MEDS: Gabapentin 300 MG CAP PO SCH (09:15)
[2018-08-09] MEDS: Aspirin 325 mg Enteric Coated Tablet PO SCH (09:15)
[2018-08-09] MEDS: guaiFENesin ER 600 MG TAB PO SCH ×2 (09:15→21:41)
[2018-08-09] MEDS: Montelukast Sodium 10 mg Tablet PO SCH (09:15)
[2018-08-09] MEDS: Atorvastatin Calcium 10 MG TAB PO SCH (09:15)
[2018-08-09] MEDS: Folic Acid 1 MG TAB PO SCH (09:17)
[2018-08-09] MEDS: Magnesium Oxide 250 MG TAB PO SCH (09:17)
[2018-08-09] MEDS: Oseltamivir 75 MG CAP PO SCH ×2 (09:17→21:43)
[2018-08-09] MEDS: Digoxin 0.125 MG TAB PO SCH (09:17)
[2018-08-09] MEDS: Calcitriol 0.25 MCG CAP PO SCH (09:18)
[2018-08-09] MEDS: Hydrocortisone 10 mg Tablet PO SCH ×2 (09:19→21:41)
[2018-08-09] MEDS: Docusate 100 MG CAP PO SCH ×2 (09:20→21:41)
[2018-08-09] MEDS: Enoxaparin Sodium 40 MG/0.4 ML SYRINGE SC SCH (09:20)
[2018-08-09 12:12] LABS: Tacrolimus 3.8 ng/mL (2.0-20.0)
--- NOTE | 2018-08-09 13:13 | PDOC.EVN ---
Addendum - Attending - Attending Attestation Date/Time: 08/09/18 1312 I personally evaluated the patient and discussed the management with Dr. Cristobal. I agree with the History, Examination, Assessment and Plan documented in the progress note with any addition or exceptions noted below. Patient doing well today. Encourage ambulation and working with PT. He and desire to go home on discharge. He is afebrile and labs stable. Anticipate his issues were related to influenza for which he is on Tamiflu. Stop IV fluids and if tolerating PO well and does well today, consider discharge tomorrow.
--- NOTE | 2018-08-09 13:19 | PDOC.FM ---
- Subjective Subjective: Feeling good this morning. Would not like to go forward with lumbar puncture. Wants to go home with home health. Endorses coughing. Nausea has improved. Denies chills. Appetite is improving. - Objective MAR Reviewed: Yes Vital Signs & Weight: Vital Signs (12 hours) Temp Pulse Resp BP Pulse Ox 08/09/18 11:05 98.3 F 95 18 161/85 H 100 08/09/18 09:33 89 18 98 08/09/18 09:17 88 08/09/18 08:00 98.2 F 82 16 153/74 H 100 08/09/18 06:39 92 20 99 08/09/18 04:29 98.1 F 86 18 160/77 H 100 08/09/18 03:00 96 08/09/18 01:19 98.0 F 87 18 143/72 H 100 Weight Admit Weight 104.871 kg Weight 110.223 kg Most Recent Monitor Data Heart Rate from ECG 98 NIBP 177/70 NIBP BP-Mean 105 Respiration from ECG 41 SpO2 100 I&O: 08/08/18 08/09/18 08/10/18 06:59 06:59 06:59 Intake Total 2500 4100 Output Total 700 2800 Balance 1800 1300 Result Diagrams: 08/09/18 04:30 08/09/18 04:30 Phys Exam - Physical Examination Constitutional: NAD HEENT: moist MMs Neck: supple Respiratory: wheezing present Cardiovascular: RRR, no significant murmur Gastrointestinal: soft, non-tender, positive bowel sounds Musculoskeletal: no edema Neurological: moves all 4 limbs Psychiatric: normal affect, A&O x 3 Skin: cap refill <2 seconds Dx/Plan (1) Acute encephalopathy Code(s): G93.40 - ENCEPHALOPATHY, UNSPECIFIED Status: Acute (2) Altered mental status Code(s): R41.82 - ALTERED MENTAL STATUS, UNSPECIFIED Status: Acute (3) Seizures Code(s): R56.9 - UNSPECIFIED CONVULSIONS Status: Acute (4) Adrenal insufficiency Code(s): E27.40 - UNSPECIFIED ADRENOCORTICAL INSUFFICIENCY Status: Chronic (5) CAD (coronary artery disease) Code(s): I25.10 - ATHSCL HEART DISEASE OF [place] CORONARY ARTERY W/O ANG PCTRS Status: Chronic Qualifiers: Coronary Disease-Associated Artery/Lesion type: [place] artery Associated angina: without angina (6) CKD (chronic kidney disease) stage 3, GFR 30-59 ml/min Status: Chronic (7) COPD (chronic obstructive pulmonary disease) Status: Chronic Qualifiers: COPD type: COPD with acute exacerbation Qualified Code(s): J44.1 - Chronic obstructive pulmonary disease with (acute) exacerbation (8) GERD (gastroesophageal reflux disease) Code(s): K21.9 - GASTRO-ESOPHAGEAL REFLUX DISEASE WITHOUT ESOPHAGITIS Status: Chronic (9) Hx of kidney transplant Status: Chronic (10) Hyperlipidemia Code(s): E78.5 - HYPERLIPIDEMIA, UNSPECIFIED Status: Chronic (11) Hypothyroid Code(s): E03.9 - HYPOTHYROIDISM, UNSPECIFIED Status: Chronic (12) IDDM (insulin dependent diabetes mellitus) Code(s): E11.9 - TYPE 2 DIABETES MELLITUS WITHOUT COMPLICATIONS; Z79.4 - MCC (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 OF INSULIN Status: Chronic (13) Morbid obesity with BMI of 40.0-44.9, adult Code(s): E66.01 - MORBID (SEVERE) OBESITY DUE TO EXCESS CALORIES; Z68.41 - BODY MASS INDEX (BMI) 40.0-44.9, ADULT Status: Chronic (14) Normocytic anemia Code(s): D64.9 - ANEMIA, UNSPECIFIED Status: Chronic (15) JUDI on CPAP Code(s): G47.33 - OBSTRUCTIVE SLEEP APNEA (ADULT) (PEDIATRIC) Status: Chronic (16) Prostate cancer Code(s): C61 - MALIGNANT NEOPLASM OF PROSTATE Status: Chronic - Plan Plan: 68 yo male presented with acute encephalopathy likely 2/2 influenza Influenza - Sepsis resolved. Fem line still in place. Pt refusing peripheral access. Will monitor closely. Remove prior to D/c - Continue Tamiflu - Dr Gerard consulted, apprec recs [facility] CXR ordered today due to worsening of wheezing E coli UTI - Adequately treated with Ceftriaxone and Meropenem - Not currently on antibiotics Encephalopathy 2/2 influenza, improved - A&O x3 - CT Head w contrast to r/o mets to brain, MRI normal on 06/26/18 Seizure disorder - Dilantin level initially low - Continue home meds L groin wound - Vanc, yolanda stopped 08/07 - CXR, UA, WBC all WNL - Procal 0.82 CAD - trop neg x1 s/p Renal transplant on immunosuppresion - Continue home meds - Nephrology consulted, apprec recs HLD - Continue home meds Adrenal insufficiency 2/2 chronic steroid use - Given stress dose steroids DMII - Lantus 35U in AM, 25U HS - Mild SSI & Hypoglycemic protocol - CC diet - Accuchecks ACHS GERD - continue home meds Gout - Continue home meds Neuropathy - Continue home meds Hx of HSV encephalitis - IR guided LP recommended in future. Physical deconditioning - PT/OT Hypomagnesium, resolved Hypophosphatemia, resolved Acute Hypoxia, resolved - CXR no acute process Prostate Cancer Lines/Tubes: rt fem central line Code status: FULL DVT ppx: Lovenox PCP: Dr Christina
[2018-08-09] MEDS: Amitriptyline HCl 10 MG TAB PO SCH (21:39)
--- NOTE | 2018-08-09 21:47 | RAD ---
CHEST ONE VIEW: INDICATIONS: wheezing COMPARISON: 08/05/2018 FINDINGS: The examination does not appear appreciably changed. Heart size is within normal limits. No air spa ce consolidation, pleural effusion, or pneumothorax is evident. No acute osseous abnormality is note d. IMPRESSION: No acute abnormality. POS: [facility]
[2018-08-10] MEDS: Metoclopramide HCl 10 MG/2 ML VIAL IVP SCH (05:33)
[2018-08-10] MEDS: Sodium Chloride 0.9% 1,000 ML IV SCH ×3 (05:33→17:34)
--- NOTE | 2018-08-10 06:50 | PDOC.FM ---
- Subjective Subjective: Feeling better. Nausea has improved. He and his feel ready to go home but pt expressed he would like to stay due to the rain outside. Denies fevers, chills. Wheezing and coughing are stable from yesterday. - Objective MAR Reviewed: Yes Vital Signs & Weight: Vital Signs (12 hours) Temp Pulse Resp BP Pulse Ox 08/10/18 06:47 100 08/10/18 06:44 79 18 100 08/09/18 23:13 97 08/09/18 20:14 97.4 F L 94 20 167/79 H 96 08/09/18 20:00 98.1 F 95 18 179/93 H 95 08/09/18 19:44 96 08/09/18 19:43 98 Weight Admit Weight 104.871 kg Weight 110.223 kg Most Recent Monitor Data Heart Rate from ECG 98 NIBP 177/70 NIBP BP-Mean 105 Respiration from ECG 41 SpO2 100 I&O: 08/08/18 08/09/18 08/10/18 06:59 06:59 06:59 Intake Total 2500 4100 975 Output Total 700 2800 700 Balance 1800 1300 275 Result Diagrams: 08/09/18 04:30 08/10/18 08:08 Phys Exam - Physical Examination Constitutional: NAD HEENT: moist MMs Neck: supple Respiratory: wheezing present Cardiovascular: RRR, no significant murmur Gastrointestinal: soft, non-tender, positive bowel sounds Musculoskeletal: no edema Neurological: moves all 4 limbs Psychiatric: normal affect, A&O x 3 Skin: normal turgor Dx/Plan (1) Acute encephalopathy Code(s): G93.40 - ENCEPHALOPATHY, UNSPECIFIED Status: Acute (2) Altered mental status Code(s): R41.82 - ALTERED MENTAL STATUS, UNSPECIFIED Status: Acute (3) Seizures Code(s): R56.9 - UNSPECIFIED CONVULSIONS Status: Acute (4) Adrenal insufficiency Code(s): E27.40 - UNSPECIFIED ADRENOCORTICAL INSUFFICIENCY Status: Chronic (5) CAD (coronary artery disease) Code(s): I25.10 - ATHSCL HEART DISEASE OF [place] CORONARY ARTERY W/O ANG PCTRS Status: Chronic Qualifiers: Coronary Disease-Associated Artery/Lesion type: [place] artery Associated angina: without angina (6) CKD (chronic kidney disease) stage 3, GFR 30-59 ml/min Status: Chronic (7) COPD (chronic obstructive pulmonary disease) Status: Chronic Qualifiers: COPD type: COPD with acute exacerbation Qualified Code(s): J44.1 - Chronic obstructive pulmonary disease with (acute) exacerbation (8) GERD (gastroesophageal reflux disease) Code(s): K21.9 - GASTRO-ESOPHAGEAL REFLUX DISEASE WITHOUT ESOPHAGITIS Status: Chronic (9) Hx of kidney transplant Status: Chronic (10) Hyperlipidemia Code(s): E78.5 - HYPERLIPIDEMIA, UNSPECIFIED Status: Chronic (11) Hypothyroid Code(s): E03.9 - HYPOTHYROIDISM, UNSPECIFIED Status: Chronic (12) IDDM (insulin dependent diabetes mellitus) Code(s): E11.9 - TYPE 2 DIABETES MELLITUS WITHOUT COMPLICATIONS; Z79.4 - HALF-WAY (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 OF INSULIN Status: Chronic (13) Morbid obesity with BMI of 40.0-44.9, adult Code(s): E66.01 - MORBID (SEVERE) OBESITY DUE TO EXCESS CALORIES; Z68.41 - BODY MASS INDEX (BMI) 40.0-44.9, ADULT Status: Chronic (14) Normocytic anemia Code(s): D64.9 - ANEMIA, UNSPECIFIED Status: Chronic (15) JUDI on CPAP Code(s): G47.33 - OBSTRUCTIVE SLEEP APNEA (ADULT) (PEDIATRIC) Status: Chronic (16) Prostate cancer Code(s): C61 - MALIGNANT NEOPLASM OF PROSTATE Status: Chronic - Plan Plan: 68 yo male presented with acute encephalopathy likely 2/2 influenza Influenza - Sepsis resolved. Fem line still in place. Pt refusing peripheral access. Will monitor closely. Remove prior to D/c - Continue Tamiflu - Dr Gerard consulted, apprec recs - [facility] 24hr - CXR ordered today due to worsening of wheezing E coli UTI - Adequately treated with Ceftriaxone and Meropenem - Not currently on antibiotics Encephalopathy 2/2 influenza, improved - A&O x3 - CT Head w contrast to r/o mets to brain, MRI normal on 06/26/18 Seizure disorder - Dilantin level initially low - Continue home meds L groin wound - Vanc, yolanda stopped 08/07 - CXR, UA, WBC all WNL - Procal 0.82 CAD - trop neg x1 s/p Renal transplant on immunosuppresion - Continue home meds - Nephrology consulted, apprec recs HLD - Continue home meds Adrenal insufficiency 2/2 chronic steroid use - Given stress dose steroids DMII - Lantus 35U in AM, 25U HS - Mild SSI & Hypoglycemic protocol - CC diet - Accuchecks ACHS GERD - continue home meds Gout - Continue home meds Neuropathy - Continue home meds Hx of HSV encephalitis - IR guided LP recommended in future. Physical deconditioning - PT/OT Hypomagnesium, resolved Hypophosphatemia, resolved Acute Hypoxia, resolved - CXR no acute process Prostate Cancer Lines/Tubes: rt fem central line Code status: FULL DVT ppx: Lovenox PCP: Dr Christina Addendum - Attending - Attending Attestation Date/Time: 08/10/18 0281 I personally evaluated the patient and discussed the management with Dr. Cristobal. I agree with the History, Examination, Assessment and Plan documented above with any addition or exceptions noted below. Patient stable and doing well. He is stable for discharge. It has been recommended multiple times that he go to rehab or SNF, but he and prefer to go home. Encouraged PT session today and ambulation to ensure he feels safe to go home. Will give Reglan PO PRN for nausea and send home with that. Will complete Tamiflu tomorrow but has been afebrile and labs stable. If ambulates today, he will likely be discharged home later today.
[2018-08-10] MEDS: Calcitriol 0.25 MCG CAP PO SCH (08:37)
[2018-08-10] MEDS: Calcium Carbonate 500 MG ChewTAB PO SCH (08:37)
[2018-08-10] MEDS: Mycophenolate 250 MG CAP PO SCH (08:37)
[2018-08-10] MEDS: Aspirin 325 mg Enteric Coated Tablet PO SCH (08:37)
[2018-08-10] MEDS: Digoxin 0.125 MG TAB PO SCH (08:38)
[2018-08-10] MEDS: Folic Acid 1 MG TAB PO SCH (08:38)
[2018-08-10] MEDS: Allopurinol 100 MG TAB PO SCH (08:38)
[2018-08-10] MEDS: Docusate 100 MG CAP PO SCH (08:38)
[2018-08-10] MEDS: Atorvastatin Calcium 10 MG TAB PO SCH (08:38)
[2018-08-10] MEDS: Montelukast Sodium 10 mg Tablet PO SCH (08:38)
[2018-08-10] MEDS: Gabapentin 300 MG CAP PO SCH (08:38)
[2018-08-10] MEDS: Magnesium Oxide 250 MG TAB PO SCH (08:38)
[2018-08-10] MEDS: Oseltamivir 75 MG CAP PO SCH (08:39)
[2018-08-10] MEDS: Hydrocortisone 10 mg Tablet PO SCH (08:39)
[2018-08-10] MEDS: guaiFENesin ER 600 MG TAB PO SCH (08:39)
[2018-08-10] MEDS: Enoxaparin Sodium 40 MG/0.4 ML SYRINGE SC SCH (08:40)
[2018-08-10 09:08] LABS: ALT (SGPT) 10 U/L (8-55); AST (SGOT) 32 U/L (5-34); Albumin 2.6 g/dL (3.4-4.8); Alkaline Phosphatase 133 U/L (40-150); Anion Gap 13 mmol/L (10-20); BUN (Urea Nitrogen) Less than 4 mg/dL (8.4-25.7); Bilirubin, Total 0.4 mg/dL (0.2-1.2); Calc. Creatinine Clearance 198 mL/min (70-130); Calcium 7.5 mg/dL (7.8-10.44); Carbon Dioxide 17 mmol/L (23-31); Chloride 109 mmol/L (98-107); Estimated GFR-MDRD Greater than 90; Globulin 1.9 g/dL (2.4-3.5); Glucose 121 mg/dL (80-115); Potassium 3.4 mmol/L (3.5-5.1); Protein, Total 4.5 g/dL (5.8-8.1); Sodium 136 mmol/L (136-145)
[2018-08-10] MEDS ORDERED: Metoclopramide 10 MG/10 ML UDCUP PO PRN (09:15)
[2018-08-10] MEDS: HumaLOG 300 UNITS/3 ML VIAL SC PRN (12:57)
[2018-08-10] MEDS: Benzonatate 100 MG CAP PO PRN (14:27)
[2018-08-10 16:54] VITALS: BP 165/81; TEMP 97.6
--- NOTE | 2018-08-11 14:06 | DIS ---
DATE OF ADMISSION: 08/05/2018 DATE OF DISCHARGE: 08/10/2018 RESIDENT: Berta Cristobal MD, PGY-1 ADMITTING ATTENDING: Brenda Reagan MD DISCHARGE ATTENDING: Edison Ureña MD CONSULTS: 1. Surgery. 2. Infectious Disease, Dr. Gerard. PROCEDURES: 1. Chest x-ray, no acute process. 2. Brain CT, no acute intracranial abnormalities. 3. Chest x-ray, no signs of pneumothorax. 4. Femoral central venous catheter placement with ultrasound guidance. 5. Chest x-ray, no acute abnormality. PRIMARY DIAGNOSES: 1. Acute encephalopathy secondary to influenza, resolved. 2. Influenza. SECONDARY DIAGNOSES: 1. Escherichia coli urinary tract infection. 2. Seizure disorder. 3. Left groin wound. 4. Coronary artery disease. 5. Status post renal transplant, on immunosuppression. 6. Hyperlipidemia. 7. Adrenal insufficiency secondary to chronic steroid use. 8. Type 2 diabetes. 9. Gastroesophageal reflux disease. 10. Gout. 11. Neuropathy. 12. History of HSV encephalitis. 13. Physical deconditioning. 14. Hypomagnesium, resolved. 15. Hypophosphatemia, resolved. 16. Acute hypoxia, resolved. 17. Prostate cancer. DISCHARGE MEDICATIONS: 1. Zytiga 1000 mg daily. 2. Allopurinol 3 tabs daily. 3. Amitriptyline 25 mg at bedtime. 4. Norvasc 2.5 mg daily. 5. Aspirin 325 mg daily. 6. Atorvastatin 10 mg daily. 7. Tessalon Perles 100 mg p.o. t.i.d. p.r.n. 8. Bumex 0.5 mg daily. 9. Calcitriol 0.25 mcg daily. 10. Tums 1000 mg b.i.d. p.r.n. 11. Zyrtec 10 mg daily. 12. Colchicine 0.6 mg b.i.d. 13. Digoxin 0.125 mg daily. 14. Colace 100 mg b.i.d. 15. Folic acid 1 mg daily. 16. Gabapentin 300 mg q.a.m. 17. Guaifenesin 600 mg q.12 hours p.r.n. 18. Raymond 10/325 q.6 hours p.r.n. 19. Hydrocortisone 10 mg q.a.m. 20. Hydrocortisone 5 mg at bedtime. 21. Insulin glargine 25 units at bedtime. 22. Insulin glargine 35 units q.a.m. 23. Loperamide 2 mg q.4 hours p.r.n. 24. Magnesium oxide 400 mg b.i.d. 25. Metoclopramide 10 mg t.i.d. 26. Metoprolol 100 mg b.i.d. 27. Montelukast 10 mg q.a.m. 28. Mycophenolate mofetil 500 mg b.i.d. 29. Ondansetron 4 mg q.6 hours p.r.n. 30. Tamiflu 75 mg b.i.d. x1 day. 31. Protonix 40 mg daily. 32. Phenytoin 2.4 mL p.o. b.i.d. . 33. Phosphorus electrolyte supplementation one packet p.o. q.a.m. 34. MiraLAX 17 g p.o. daily p.r.n. 35. Potassium chloride 40 mEq p.o. q.a.m. 36. Senokot 2 tabs b.i.d. p.r.n. 37. Tacrolimus 0.5 mg capsule b.i.d. 38. Ultram 50 mg q.6 hours p.r.n. 39. Trazodone 100 mg p.o. at bedtime. HISTORY OF PRESENT ILLNESS/HOSPITAL COURSE: Mr. Joseph is a 68-year-old male, who presented with generalized weakness and altered mental status. A peripheral line was unable to be placed, so therefore, right IJ was attempted by ED doc and eventually Surgery was consulted for a right femoral central line placement. During that time, IO was placed and 1 L bolus was started. Labs were drawn from IO that showed hemoglobin 5.1, platelets 4, these labs can be disregarded as they are not accurate. The patient received Rocephin, vancomycin, 2 L of normal saline, and Tylenol. Blood pressure on admission 106/51, temperature 103. The patient met SIRS criteria with an unknown infectious source, tachycardic at 114, and max fever was 103.8. UA was negative for. Procalcitonin 0.89. Alkaline phosphatase 182. Phosphorus 2, magnesium 1.2, sodium 131. Dilantin, digoxin, and tacrolimus levels were obtained. CT of the brain was normal. Blood cultures were negative. Urine culture grew out E coli. Influenza A/B by nasal swab was initially negative, RVP although was positive for influenza A, the patient was started on Tamiflu and showed improvement in altered mental status. Chest x-ray was obtained due to the patient's wheezing, that was normal. He was continued on DuoNeb scheduled. For his UTI, it was adequately treated with ceftriaxone and meropenem x2. continued on antibiotics and remained afebrile. For seizure disorder, he was continued on home medication. He has a history of renal transplant, he is on immunosuppression, and these medications were continued. He was given a stress dose of steroids for history of adrenal insufficiency secondary to chronic steroid use. Diabetes was managed with Lantus 35 units in a.m., 25 units at bedtime, and mild sliding scale. He was continued on home medications for hyperlipidemia, GERD, gout, and nephropathy. Dr. Gerard was consulted prior to the positive influenza A due to his complicated history. Please see prior discharge summary for more information. Two hospitalizations ago, he had a history of presumed HSV encephalitis, although CSF was not able to be obtained because they were unable to perform lumbar puncture. Dr. Gerard recommended IR-guided lumbar puncture, but the patient declined. For his physical deconditioning, PT and OT were consulted. They recommended inpatient versus rehab. and the patient expressed desire to go home with home health OT and PT instead. His hypomagnesium and hypophosphatemia were resolved with replacement. He had a right femoral central line in throughout the course of the stay, but due to the nurses being unable to obtain peripheral access or midline access, it was taken out at discharge. DISPOSITION: Stable. DISCHARGE INSTRUCTIONS: 1. Location: Home with home health. 2. Diet: Carb consistent, heart healthy. 3. Activity: As tolerated. 4. Follow up with Dr. Christina or another provider at [facility] within 7 days. Job ID: [id number]
== END 2018-08-10 18:59 | disposition home health service (06) | DRG 871 ==
LOC: ERS 15:00 → ERHOLD 16:31 → IMCU/EMU 22:12 → SURG B 08-08 08:02 → T4-B 08-09 20:16
PROVIDERS: ADMIT Family Medicine; ATTEND Family Medicine
PROC: 06HM33Z Insertion of Infusion Device into Right Femoral Vein, Percutaneous Approach (ICD-10-PCS; principal; 2018-08-05)
PROC: B54BZZA Ultrasonography of Right Lower Extremity Veins, Guidance (ICD-10-PCS; 2018-08-05)
DX: A41.9 Sepsis, unspecified organism (principal); G93.41 Metabolic encephalopathy; Z94.0 Kidney transplant status; E87.1 Hypo-osmolality and hyponatremia; I13.0 Hypertensive heart and chronic kidney disease with heart failure and stage 1 through stage 4 chronic kidney disease, or unspecified chronic kidney disease; E27.40 Unspecified adrenocortical insufficiency; J44.1 Chronic obstructive pulmonary disease with (acute) exacerbation; I50.30 Unspecified diastolic (congestive) heart failure; N39.0 Urinary tract infection, site not specified; Z68.41 Body mass index [BMI] 40.0-44.9, adult; G47.33 Obstructive sleep apnea (adult) (pediatric); K21.9 Gastro-esophageal reflux disease without esophagitis; M10.9 Gout, unspecified; G40.909 Epilepsy, unspecified, not intractable, without status epilepticus; B96.20 Unspecified Escherichia coli [E. coli] as the cause of diseases classified elsewhere; E78.5 Hyperlipidemia, unspecified; G62.9 Polyneuropathy, unspecified; E66.01 Morbid (severe) obesity due to excess calories; Z79.899 Other long term (current) drug therapy; J10.1 Influenza due to other identified influenza virus with other respiratory manifestations; N18.3 Chronic kidney disease, stage 3 (moderate); I25.10 Atherosclerotic heart disease of native coronary artery without angina pectoris; R51 Headache; E83.42 Hypomagnesemia; S30.92XA Unspecified superficial injury of abdominal wall, initial encounter; D53.9 Nutritional anemia, unspecified; E11.22 Type 2 diabetes mellitus with diabetic chronic kidney disease; C61 Malignant neoplasm of prostate; Z79.4 Long term (current) use of insulin; Z86.61 Personal history of infections of the central nervous system; Z79.82 Long term (current) use of aspirin; Z88.8 Allergy status to other drugs, medicaments and biological substances; Z88.0 Allergy status to penicillin; Z91.040 Latex allergy status
CPT/HCPCS: 36415; 36416; 36556; 36680; 51701; 70450; 71045; 74176; 80053; 80162; 80185; 80197; 80202; 81003; 82533; 82550; 83605; 83690; 83735; 83880; 84100; 84145; 84146; 84484; 85025; 85379; 87040; 87077; 87086; 87186; 87633; 87804; 93005; 94640; 96360; 96361; 96365; 96366; 96375; J0696; J1650; J1825; J2001; J2185; J2405; J2765; J3370; J3475; J7050; J7517; J7620; Q0162; Q0163

== ENCOUNTER 2018-08-28 13:20 | Inpatient (IN) | payer MEDICARE ==
--- NOTE | 2018-08-28 15:18 | CT ---
CT BRAIN NONCONTRAST: Date: 08/28/2018. Time: 2:34 p.m. HISTORY: A 68-year-old male with altered mental status. COMPARISON: Brain CT of 08/05/2018. FINDINGS: There is a small old infarction in the posterior aspect of the right cerebellar hemisphere (which was present as far back as 05/17/2018 CT). There is a small patchy approximately 1 cm focus of moderate ly low attenuation in the left side of the ernie. This was present on 08/05/2018, but not 05/17/2018, or on MRI of 06/26/2018. The ventricles are normal in size and configuration. No mass effect or midli ne shift. No acute intraaxial or extraaxial hemorrhage. The calvarium is intact. At the anterior a spect of the right C1 or C2 lateral mass, there is a slightly greater than 1 cm osteolytic lesion. N one of the previous CTs included this level. IMPRESSION: 1. No acute intracranial findings. 2. Lesion in the left ernie, possibly a subacute infarction. 3. 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 4. Osteolytic lesions at junction between C1 and C2. Recommend further evaluation CT of the cervica l spine. JORDON [] POS: KATHY
--- NOTE | 2018-08-28 15:22 | RAD ---
RADIOGRAPH CHEST 1 VIEW: HISTORY: A 68-year-old male with dyspnea. FINDINGS: There is no air space density, pulmonary edema, or pneumothorax. The lateral costophrenic angles are sharp. IMPRESSION: No acute pulmonary findings. jn [] POS: ABDOUL
[2018-08-28 16:08] LABS: Bilirubin Negative (Negative); Blood, Urine Negative (Negative); Clarity CLEAR (Clear); Glucose, Urine (Dipstick) Negative (Negative); Leukocyte Negative (Negative); Nitrite Negative (Negative); Protein, Urine (Dipstick) Negative (Neg-Trace); Specific Gravity, Urine 1.015 (1.002-1.036); Urobilinogen 0.2 mg/dL (0.2-1.0)
[2018-08-28 16:45] LABS: ALT (SGPT) 22 U/L (8-55); AST (SGOT) 22 U/L (5-34); Albumin 2.6 g/dL (3.4-4.8); Alkaline Phosphatase 175 U/L (40-150); Anion Gap 14 mmol/L (10-20); BUN (Urea Nitrogen) 7 mg/dL (8.4-25.7); Bilirubin, Total 0.7 mg/dL (0.2-1.2); Calc. Creatinine Clearance 0 mL/min (70-130); Calcium 8.5 mg/dL (7.8-10.44); Carbon Dioxide 27 mmol/L (23-31); Chloride 102 mmol/L (98-107); Estimated GFR-MDRD Greater than 90; Globulin 2.1 g/dL (2.4-3.5); Glucose 132 mg/dL (80-115); Lipase 13 U/L (8-78); Potassium 3.6 mmol/L (3.5-5.1); Protein, Total 4.7 g/dL (5.8-8.1); Sodium 139 mmol/L (136-145)
[2018-08-28 17:06] LABS: CKMB 0.5 ng/mL (0-6.6)
--- NOTE | 2018-08-28 17:13 | CT ---
CT OF THE CERVICAL SPINE WITHOUT CONTRAST 08/28/18 INDICATION: History of altered mental status. COMPARISON: MR of the cervical spine dated 05/18/18. FINDINGS: There is diffuse mixed lytic and osteoblastic metastatic disease of the cervical spine and skull base . No definite pathologic fracture is evident. There is multilevel mild cervical spondylosis. Cranioce rvical junction reveals no acute injury. Mastoid air cells are clear. Prevertebral soft tissues are n ormal appearing. IMPRESSION: 1. 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 2. No acute fracture or subluxation. 3. Multilevel spondylosis cervical spine. POS: [facility]
--- NOTE | 2018-08-28 18:46 | PDOC.FPRHP ---
- History of Present Illness Chief Complaint: AMS History of Present Illness: The patient is a 68YOM with a PMH of adrenal insufficiency, metastatic prostate cancer, a seizure disorder, and IDDMII who presented to the ED with his who reports that the patient has had a progressive decline in his mental status over the last 2-3 days. The patient was oriented only to self on exam and had a GCS score of 12-13 ([id number]) so the history was obtained from his who was at the bedside. Per the , the patient has had a decline in mental status that progressed from answering inappropriately to having mumbled speech that even she had difficulty understading. She also reports associated decreased PO intake with N/V and episodes of diarrhea. She says she has tried alternating between zofran and reglan for his but reports that the patient has not been able to keep all of his meds down for the last several days 2/2 his vomiting. The reports his last emesis episode was yesterday. Regarding his diarrhea, the reports that the patient has had diarrhea on & off since his most recent discharge and says he was vomiting clear mucus at one point but says it has since resolved. She denies any hematochezia or melena. Lastly, of note, the reports periodic jerking movements of his B?L upper extremities and head that began after the patient was temporarily taken off of his phenytoin by his PCP. However, the medication was resumed 3 days ago after the called to reports the onset of the twitching but the patient has continued to jerk and "tweak" periodically over the last 3 days. - Allergies/Adverse Reactions Allergies Allergy/AdvReac Type Severity Reaction Status Date / Time Latex, Natural Rubber Allergy Verified 07/14/18 18:42 morphine Allergy Verified 07/14/18 18:42 NSAIDS (Non-Steroidal Allergy Verified 07/14/18 18:42 Anti-Inflamma Penicillins Allergy Severe Verified 07/14/18 18:42 Hives povidone-iodine Allergy Rash Verified 07/14/18 18:42 [From Betadine] shellfish derived Allergy Verified 07/14/18 18:42 Tetracyclines Allergy Verified 07/14/18 18:42 lisinopril AdvReac Mild COUGHING Verified 07/14/18 18:42 - Home Medications Medication Instructions Recorded Confirmed Type RX: Amitriptyline HCl [Elavil] 25 mg PO HS 02/18/15 08/28/18 History RX: Aspirin [Aspirin EC] 325 mg PO DAILY 02/18/15 08/28/18 History RX: Atorvastatin Calcium [Lipitor] 10 mg PO DAILY 02/18/15 08/28/18 History RX: Calcitriol 0.25 mcg PO DAILY 02/18/15 08/28/18 History RX: Cetirizine HCl [Zyrtec] 10 mg PO DAILY 02/18/15 08/28/18 History RX: Metoprolol Succinate [Toprol 1 tab PO BID 02/18/15 08/28/18 History XL] RX: Mycophenolate Mofetil 500 mg PO BID 02/18/15 08/28/18 History RX: Tacrolimus 1 mg PO BID 02/18/15 08/28/18 History RX: amLODIPine Besylate [Norvasc] 2.5 mg PO DAILY 02/18/15 08/28/18 History RX: Allopurinol 3 tab PO DAILY 05/09/15 08/28/18 History RX: Bumetanide [Bumex] 1 tab PO DAILY 10/14/16 08/28/18 History RX: Gabapentin 0.5 tab PO BID 10/14/16 08/28/18 History RX: Montelukast Sodium [Singulair] 10 mg PO QAM 10/14/16 08/28/18 History RX: Abiraterone Acetate [Zytiga] 1,000 mg PO DAILY 04/25/18 08/28/18 History RX: Colchicine [Colcrys] 0.6 mg PO BID PRN 04/25/18 08/28/18 History RX: Docusate [Colace] 100 mg PO BID 04/25/18 08/28/18 History RX: HYDROcodone/Acetaminophen 1 each PO Q6H PRN 04/25/18 08/28/18 History [[place] 10-325 Tablet] RX: Polyethylene Glycol 3350 17 gm PO DAILY PRN 05/18/18 08/28/18 History [Miralax] RX: Acetaminophen [Tylenol Regular 650 mg PO Q4H PRN tab 06/03/18 08/28/18 Rx Strength] RX: Calcium Carbonate [Tums] 1,000 mg PO BID tab 06/03/18 08/28/18 Rx RX: Digoxin [Lanoxin] 0.125 mg PO DAILY tab 06/03/18 08/28/18 Rx RX: Magnesium Oxide 400 mg PO BID tab 06/03/18 08/28/18 Rx RX: Phosphorus/Electrolyte Suppl 1 pkt PO QAM pack 06/03/18 08/28/18 Rx [Phos-NaK] RX: Insulin Lispro [Humalog 100 unit SQ DAILY-AC PRN 06/23/18 08/28/18 History Kwikpen U-100] RX: Loperamide HCl [Imodium A-D] 2 mg PO Q4HR PRN 06/23/18 08/28/18 History RX: traZODone HCl [Trazodone HCl] 100 mg PO QPM 06/23/18 08/28/18 History RX: Insulin Glargine [Lantus Vial] 25 units SC HS 30 Days #1 vial 07/01/1808/28 Rx RX: Insulin Glargine [Lantus Vial] 35 units SC QAM 30 Days #1 vial 07/02/1803/10 Rx RX: Folic Acid [Folvite] 1 mg PO DAILY #30 tab 07/21/18 08/28/18 Rx RX: Potassium Chloride [K-Dur] 40 meq PO QAM-WM #30 tab 07/21/18 08/28/18 Rx RX: Pantoprazole [Protonix] 40 mg PO DAILY 08/06/18 08/28/18 History RX: Phenytoin [Dilantin Suspension] 2.4 ml PO BID 08/06/18 08/28/18 History RX: Benzonatate [Tessalon] 100 mg PO TIDPRN PRN #30 cap 08/09/18 08/28/18 Rx RX: Ondansetron [Zofran ODT] 4 mg PO Q6H PRN #30 tab 08/09/18 08/28/18 Rx RX: Sennosides/Docusate Sodium 2 tab PO BID PRN tab 08/09/18 08/28/18 Rx [Senokot S] RX: traMADol HCl [Ultram] 50 mg PO Q6H PRN tab 08/09/18 08/28/18 Rx Metoclopramide HCl [Reglan] 10 mg PO TID PRN #90 tab 08/10/18 08/28/18 Rx RX: Hydrocortisone [Cortef] 5 mg PO HS 30 Days #30 tab 08/11/18 08/28/18 Rx RX: Hydrocortisone [Cortef] 10 mg PO QAM 30 Days #30 tab 08/11/18 08/28/18 Rx - History PMHx: seizure disorder, metastatic prostate CA, COPD, HFpEF, HTN, HLD, JUDI, adrenal insufficiency, s/p renal transplant on chronic IS therapy, neuropathy, IDDMII, gout PSHx: kidney transplant, hernia x3, cholecystectomy FHx: Mother- MT & DMII Social: Lives at home with and has HH w/ home PT & OT. No tobacco, EtOH, or drug use per chart review & . - Review of Systems ROS unobtainable: other (see hpi for pertinent ROS) - Vital signs BP: 154/79 HR: 95 RR: 18 Tmax: 98.5F Pox: 97% on RA Wt: 103.4kg - Physical Exam Constitutional: NAD, well developed, other (in and out of consciousness w/ GCS of 12-13 as he would follow some commands but would otherwise localize pain) HEENT: normocephalic and atraumatic, other (geographic tongue) Neck: supple, FROM Chest: no-tender to palpation, no lesions Heart: RRR, normal S1/S2, pulses present, no edema Lungs: CTAB, no respiratory distress, good air movement, no wheezing Abdomen: soft, bowel sounds present, other (TTP in abdomen but also TTP in feet and legs) Musculoskeletal: normal structure, ROM grossly normal Neurological: other (unable to fully assess 2/2 mental status) Skin: no rash/lesions, good turgor, no jaundice, other (chronic venous stasis skin change in B/L LEs) Heme/Lymphatic: no unusual bruising or bleeding, no purpura, no petechia Psychiatric: other (poor recent & remote memory) FMR H&P: Results - Labs Result Diagrams: 08/29/18 06:17 08/29/18 06:17 Lab results: Sodium 139 mmol/L (136-145) 08/28/18 16:11 Potassium 3.6 mmol/L (3.5-5.1) 08/28/18 16:11 Chloride 102 mmol/L (98-107) 08/28/18 16:11 Carbon Dioxide 27 mmol/L (23-31) 08/28/18 16:11 BUN 7 mg/dL (8.4-25.7) L 08/28/18 16:11 Creatinine 0.67 mg/dL (0.7-1.3) L 08/28/18 16:11 Glucose 132 mg/dL (80-115) H 08/28/18 16:11 Calcium 8.5 mg/dL (7.8-10.44) 08/28/18 16:11 Total Bilirubin 0.7 mg/dL (0.2-1.2) 08/28/18 16:11 AST 22 U/L (5-34) 08/28/18 16:11 ALT 22 U/L (8-55) 08/28/18 16:11 Alkaline Phosphatase 175 U/L (40-150) H 08/28/18 16:11 Ammonia 25 umol/L (18-72) 08/28/18 15:25 CK-MB (CK-2) 0.5 ng/mL (0-6.6) 08/28/18 16:11 Serum Total Protein 4.7 g/dL (5.8-8.1) L 08/28/18 16:11 Albumin 2.6 g/dL (3.4-4.8) L 08/28/18 16:11 Lipase 13 U/L (8-78) 08/28/18 16:11 Urine Ketones 15 mg/dL (Negative) H 08/28/18 15:35 Urine Blood Negative (Negative) 08/28/18 15:35 Urine Nitrite Negative (Negative) 08/28/18 15:35 Ur Leukocyte Esterase Negative (Negative) 08/28/18 15:35 - EKG Interpretation EKG: NSR - Radiology Interpretation Other Additional comment: CT neck: diffuse osteoblastic disease of base of skull and cervical spine CT scan - head Status: report reviewed by me (new osteolytic lesion at level between C1 & C2) Chest x-ray Status: report reviewed by me (no acute cardiopulmonary findings) FMR H&P: A/P - Problem List (1) Acute encephalopathy Current Visit: No Status: Acute Code(s): G93.40 - ENCEPHALOPATHY, UNSPECIFIED (2) Seizures Current Visit: No Status: Chronic Code(s): R56.9 - UNSPECIFIED CONVULSIONS (3) Adrenal insufficiency Current Visit: No Status: Chronic Code(s): E27.40 - UNSPECIFIED ADRENOCORTICAL INSUFFICIENCY (4) CAD (coronary artery disease) Current Visit: No Status: Chronic Code(s): I25.10 - ATHSCL HEART DISEASE OF [place] CORONARY ARTERY W/O ANG PCTRS Qualifiers: Coronary Disease-Associated Artery/Lesion type: [place] artery Associated angina: without angina (5) COPD (chronic obstructive pulmonary disease) Current Visit: No Status: Chronic Qualifiers: COPD type: COPD with acute exacerbation Qualified Code(s): J44.1 - Chronic obstructive pulmonary disease with (acute) exacerbation (6) GERD (gastroesophageal reflux disease) Current Visit: No Status: Chronic Code(s): K21.9 - GASTRO-ESOPHAGEAL REFLUX DISEASE WITHOUT ESOPHAGITIS (7) Hx of kidney transplant Current Visit: No Status: Chronic (8) Hyperlipidemia Current Visit: No Status: Chronic Code(s): E78.5 - HYPERLIPIDEMIA, UNSPECIFIED (9) Hypothyroid Current Visit: No Status: Chronic Code(s): E03.9 - HYPOTHYROIDISM, UNSPECIFIED (10) IDDM (insulin dependent diabetes mellitus) Current Visit: No Status: Chronic Code(s): E11.9 - TYPE 2 DIABETES MELLITUS WITHOUT COMPLICATIONS; Z79.4 - REPRODUCTIVE HEALTHCARE ASSISTANT (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 OF INSULIN (11) Morbid obesity with BMI of 40.0-44.9, adult Current Visit: No Status: Chronic Code(s): E66.01 - MORBID (SEVERE) OBESITY DUE TO EXCESS CALORIES; Z68.41 - BODY MASS INDEX (BMI) 40.0-44.9, ADULT (12) Normocytic anemia Current Visit: No Status: Chronic Code(s): D64.9 - ANEMIA, UNSPECIFIED (13) JUDI on CPAP Current Visit: No Status: Chronic Code(s): G47.33 - OBSTRUCTIVE SLEEP APNEA (ADULT) (PEDIATRIC) (14) Prostate cancer Current Visit: No Status: Chronic Code(s): C61 - MALIGNANT NEOPLASM OF PROSTATE - Plan Acute encephalopathy: - Unknown etiology at this point. Most likely source 2/2 a chronic issue not being properly treated as patient has been unable to tolerate much PO over the last several days 2/2 N/V. Low suspicion for infection as UA and CXR appear WNLs. Also no leukocytosis and HD stable. Patient did have ketonuria but BG only slightly elevated at 132 on presentation. Will order a dig level to assess for toxicity although level may actually be low since patient has been vomiting his meds. Will also check an AM cortisol level as undertreated adrenal insufficiency could also explain his AMS. - Will continue to monitor & resume home meds w/ PRN zofran and reglan for N/V. COPD: - Aware, will resume home meds. HTN: - Aware, will resume home meds. Sz disorder: - Aware, will resume home meds. Hypothyroidism: - Aware, will resume home meds. GERD: - Aware, will resume home meds. CAD: - Aware, will resume home meds. HFpEF: - Aware, will resume home meds. HLD: - Aware, will resume home meds. gout: - Aware, will resume home meds. adrenal insufficiency: - Aware, will resume home meds. But will check an AM cortisol level first. IDDMII: - Aware, will resume home meds. ACHS accuchecks and SSI. s/p renal transplant: - Aware, will resume home meds. metastatic prostate cancer: - Aware, will resume home meds. - Of note, CT brain did show new met at level of C1-C2. JUDI on CPAP: - Will clarify and resume CPAP HS if patient is on it at night. FMR H&P: Upper Level - Pertinent history Patient is a 68 yo male here for altered mental status. Initially patient was in the room alone and unable to give any history. Alert, but verbalization was unintelligable. Patient was discharged in mid-July 2018 for encephalopathy 2 /2 influenza. was later in the room and able to provide history that patient has been having AMS and upper body shaking over the past couple days. Assoc vomiting. History of prostate cancer with metastasis. Was recently stopped on phenytoin, but was restarted after he started twitch again. - Pertinent findings 146/78 HR: 94 TEMP: 98.4 96% on RA RR: 20 GEN: patient noncompliant with most of the exam CARD: RRR, no m/g/r PULM: CTAB ABD: patient wincing to palpation, but unable to locate the pain including rebound tenderness; also peritoneal signs elicited wincing but patient unable to tell us where pain was presenting; he also winced to pain when palpating his lower extremities EXT: erythema of b/l LE appearing like stasis dermatitis Ammonia: 25 UA: ketones 15, otherwise negative CT head: no acute intracranial findings; lesion in the left ernie, possibly a subacute infarction; osteolytic lesions at junction between C1 and C2 CT neck: diffuse osseous metastatic disease of the skull base and cervical spine ; multilevel spondylosis cervical spine CXR negative - Plan Date/Time: 08/28/181845 IHayes DO, have evaluated this patient and agree with findings/plan as outlined by sport internship resident. Pertinent changes/additions are listed here. 1. Encephalopathy of uncertain etiology: will check digoxin level as well as AM cortisol level. Ammonia level not elevated. 2. Prostate cancer with metastasis: consider referral to heme-onc if patient does not improve 3. Immunosuppression 2/2 kidney replacement 4. Adrenal insuffency 2/2 chronic steroid use 5. All other problems reviewed, see above for further discussion
[2018-08-28] MEDS ORDERED: Ondansetron ODT 8 MG TAB ONE (19:05)
[2018-08-28 21:12] LABS: Troponin I 0.038 ng/mL (< 0.028)
[2018-08-28] MEDS ORDERED: Dextrose 50% Abboject 50 ML SYRINGE SLOW IVP PRN (21:35)
[2018-08-28] MEDS ORDERED: HumaLOG 300 UNITS/3 ML VIAL SC PRN (21:35)
[2018-08-28] MEDS ORDERED: Dextrose 5% in Water 1,000 ML IV PRN (21:35)
[2018-08-28 21:41] LABS: Band 3 % (5-11); Hemoglobin 8.7 g/dL (14.0-18.0); Hypochromia SLIGHT = 6-15 cells (100X) (0-5/hpf); Lymphocytes 32 % (21-51); MDiff Complete? YES; Mean Corpuscular HGB CONC 30.7 g/dL (32.0-36.0); Mean Corpuscular Hemoglobin 31.7 pg (27.0-31.0); Mean Platelet Volume 7.6 fL (7.4-10.4); Monocytes 11 % (0-10); Neutrophil 53 % (42-75); Ovalocytes SLIGHT = 2-5 cells (100X) (0-1/hpf); Platelet Count 199 thou/uL (130-400); Platelet Morphology Comment Appears Adequate; RBC Distribution Width 18.8 % (11.5-14.5); Red Blood Cell (RBC) Count 2.74 mill/uL (4.70-6.10); White Blood Cell (WBC) Count 6.4 thou/uL (4.8-10.8)
[2018-08-28] MEDS ORDERED: Acetaminophen 325 MG TAB PO PRN (23:17)
[2018-08-29 00:03] VITALS: BMI 33.6
[2018-08-29] MEDS ORDERED: Benzonatate 100 MG CAP PO PRN (03:44)
[2018-08-29] MEDS ORDERED: Senokot S 8.6-50 MG TAB PO PRN (03:44)
[2018-08-29] MEDS ORDERED: Loperamide HCl 2 MG CAP PO PRN (03:44)
[2018-08-29] MEDS ORDERED: Colchicine 0.6 MG TAB PO PRN (03:44)
[2018-08-29] MEDS ORDERED: Polyethylene Glycol 3350 17 GM Packet PO PRN (03:44)
[2018-08-29] MEDS ORDERED: Metoclopramide HCl 10 MG TAB PO PRN (03:44)
[2018-08-29] MEDS: Ondansetron ODT 4 MG TAB PO PRN (06:34)
--- NOTE | 2018-08-29 06:42 | PDOC.FM ---
- Subjective Subjective: No overnight events. Pt unable to answer orientation questions this morning. He is grimacing. Reports left hip pain. reports he slipped out of bed a few days ago, she found him on the floor. - Objective MAR Reviewed: Yes Vital Signs & Weight: Vital Signs (12 hours) Temp Pulse Resp BP Pulse Ox 08/29/18 05:00 98.9 F 75 16 161/89 H 95 08/29/18 00:47 98.2 F 08/28/18 22:35 100.1 F H 100 18 131/83 94 L Weight Weight 103.4 kg I&O: 08/27/18 08/28/18 08/29/18 06:59 06:59 07:59 Intake Total 100 Balance 100 Result Diagrams: 08/29/18 06:17 08/29/18 06:17 Phys Exam - Physical Examination Constitutional: NAD HEENT: moist MMs Neck: supple Respiratory: no wheezing, clear to auscultation bilateral Cardiovascular: RRR, no significant murmur Gastrointestinal: soft, non-tender, positive bowel sounds Musculoskeletal: edema present (mild to knees) Neurological: moves all 4 limbs Psychiatric: normal affect Deviation from normal: Unable to answer orientation questions Skin: cap refill <2 seconds Dx/Plan (1) Acute encephalopathy Code(s): G93.40 - ENCEPHALOPATHY, UNSPECIFIED Status: Acute (2) Seizures Code(s): R56.9 - UNSPECIFIED CONVULSIONS Status: Chronic (3) Tachycardia Code(s): R00.0 - TACHYCARDIA, UNSPECIFIED Status: Acute (4) Viral gastroenteritis Code(s): A08.4 - VIRAL INTESTINAL INFECTION, UNSPECIFIED Status: Acute (5) Adrenal insufficiency Code(s): E27.40 - UNSPECIFIED ADRENOCORTICAL INSUFFICIENCY Status: Chronic (6) CAD (coronary artery disease) Code(s): I25.10 - ATHSCL HEART DISEASE OF [place] CORONARY ARTERY W/O ANG PCTRS Status: Chronic Qualifiers: Coronary Disease-Associated Artery/Lesion type: [place] artery Associated angina: without angina (7) CKD (chronic kidney disease) stage 3, GFR 30-59 ml/min Status: Chronic (8) COPD (chronic obstructive pulmonary disease) Status: Chronic Qualifiers: COPD type: COPD with acute exacerbation Qualified Code(s): J44.1 - Chronic obstructive pulmonary disease with (acute) exacerbation (9) GERD (gastroesophageal reflux disease) Code(s): K21.9 - GASTRO-ESOPHAGEAL REFLUX DISEASE WITHOUT ESOPHAGITIS Status: Chronic (10) Hx of kidney transplant Status: Chronic (11) Hyperlipidemia Code(s): E78.5 - HYPERLIPIDEMIA, UNSPECIFIED Status: Chronic (12) Hypothyroid Code(s): E03.9 - HYPOTHYROIDISM, UNSPECIFIED Status: Chronic (13) IDDM (insulin dependent diabetes mellitus) Code(s): E11.9 - TYPE 2 DIABETES MELLITUS WITHOUT COMPLICATIONS; Z79.4 - SENIOR LIVING (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 Acute encephalopathy - Unknown etiology. Pt with decreased PO intake 2/2 n/v/d. - UA/CXR nml. Aferile, no leukocytosis - Dig and dilantin level pending - AM cortisol level low will give stress dose steroids - Gen surgery consulted for mediport placement. - If no improvement with steroids consider repeat EEG - Neurology consulted - Zofran and reglan PRN - Banana bag ordered Seizure disorder - Dilantin level low - Continue home meds Hip Pain - Hip Xray ordered CAD - trop neg x1 - Continue home meds s/p Renal transplant on immunosuppresion - Continue home meds - Nephrology consulted, apprec recs HLD - Continue home meds Adrenal insufficiency 2/2 chronic steroid use - Given stress dose steroids DMII - Lantus 35U in AM, 25U HS - Mild SSI & Hypoglycemic protocol - CC diet - Accuchecks ACHS GERD - continue home meds Gout - Continue home meds Neuropathy - Continue home meds Hx of HSV encephalitis - IR guided LP recommended in future. Pt declined last hospitalization S/p Renal Transplant - Continue home meds Physical deconditioning - PT/OT COPD - Continue home meds HFpEF - Continue home meds HTN - Continue home meds Hypothyroidism - Continue home meds JUDI - Continue CPAP Prostate Cancer Code status: FULL DVT ppx: Lovenox PCP: Dr Christina
[2018-08-29 07:12] LABS: Anion Gap 17 mmol/L (10-20); BUN (Urea Nitrogen) 6 mg/dL (8.4-25.7); Calc. Creatinine Clearance 157 mL/min (70-130); Calcium 8.3 mg/dL (7.8-10.44); Carbon Dioxide 24 mmol/L (23-31); Chloride 105 mmol/L (98-107); Estimated GFR-MDRD Greater than 90; Glucose 116 mg/dL (80-115); Potassium 3.5 mmol/L (3.5-5.1); Sodium 142 mmol/L (136-145)
[2018-08-29 07:29] LABS: Mean Corpuscular HGB CONC 30.9 g/dL (32.0-36.0); Mean Corpuscular Hemoglobin 31.7 pg (27.0-31.0); Mean Platelet Volume 7.5 fL (7.4-10.4); Platelet Count 186 thou/uL (130-400); RBC Distribution Width 18.9 % (11.5-14.5); Red Blood Cell (RBC) Count 2.52 mill/uL (4.70-6.10); White Blood Cell (WBC) Count 7.1 thou/uL (4.8-10.8)
[2018-08-29] MEDS ORDERED: HYDROcodone/Acetaminophen 10/325 mg Tablet PO PRN (08:50)
[2018-08-29] MEDS: Enoxaparin Sodium 40 MG/0.4 ML SYRINGE SC SCH (08:54)
[2018-08-29] MEDS: Aspirin 325 mg Enteric Coated Tablet PO SCH (08:59)
[2018-08-29] MEDS: Amlodipine 5 MG TAB PO SCH (08:59)
[2018-08-29] MEDS: Atorvastatin Calcium 10 MG TAB PO SCH (08:59)
[2018-08-29] MEDS: Potassium Chloride 20 MEQ TAB PO SCH (08:59)
[2018-08-29] MEDS: Allopurinol 100 MG TAB PO SCH (08:59)
[2018-08-29] MEDS ORDERED: ABIRATERONE ACETATE 1000 MG PO SCH (09:00)
[2018-08-29] MEDS ORDERED: Mycophenolate 250 MG CAP PO SCH (09:00)
[2018-08-29] MEDS: Insulin Glargine 35 UNITS in Pre-Filled Syringe 1 EACH SC SCH (09:00)
[2018-08-29] MEDS: Calcium Carbonate 500 MG ChewTAB PO SCH (09:00)
[2018-08-29] MEDS ORDERED: Hydrocortisone 10 mg Tablet PO SCH ×2 (09:00→10:00)
[2018-08-29] MEDS: Docusate 100 MG CAP PO SCH (09:00)
[2018-08-29] MEDS ORDERED: Cetirizine HCl 10 MG TAB PO SCH (09:00)
[2018-08-29] MEDS: Calcitriol 0.25 MCG CAP PO SCH (09:00)
[2018-08-29] MEDS: Magnesium Oxide 400 MG TAB PO SCH (09:00)
[2018-08-29] MEDS ORDERED: Digoxin 0.125 MG TAB PO SCH (09:00)
[2018-08-29] MEDS: Loratadine 10 MG TAB PO SCH (09:00)
[2018-08-29] MEDS: Folic Acid 1 MG TAB PO SCH (09:00)
[2018-08-29] MEDS ORDERED: Tacrolimus 0.5 MG CAP PO SCH (09:00)
[2018-08-29] MEDS ORDERED: Bumetanide 1 MG TAB PO SCH (09:00)
[2018-08-29] MEDS: Montelukast Sodium 10 mg Tablet PO SCH (09:01)
[2018-08-29 10:02] LABS: Anisocytosis SLIGHT = 6-15 cells (100X) (0-5/hpf); Band 3 % (5-11); Hypochromia MODERATE=16-30 cells (100X) (0-5/hpf); Lymphocytes 24 % (21-51); MDiff Complete? YES; Macrocytosis MODERATE=16-30 cells (100X) (0-5/hpf); Microcytosis SLIGHT = 6-15 cells (100X) (0-5/hpf); Monocytes 22 % (0-10); Neutrophil 36 % (42-75); Polychromasia SLIGHT = 2-3 cells (100X) (0-2/hpf); Reactive Lymphocytes 15 % (0-10); Schistocytes SLIGHT = 2-5 cells (100X) (0-1/hpf); Target Cells SLIGHT = 2-5 cells (100X) (0-1/hpf)
--- NOTE | 2018-08-29 10:15 | RAD ---
TWO VIEWS OF THE CHEST: COMPARISON: None. HISTORY: Hip pain. FINDINGS: Two views of the left hip show no evidence of acute fracture or dislocation. No degenerative changes are seen. Multiple surgical clips in the pelvis may be from prior prostatectomy. IMPRESSION: No evidence of acute osseous abnormality. POS: ABDOUL
[2018-08-29] MEDS ORDERED: Triamcinolone 40 MG/ML VIAL IM SCH (10:30)
[2018-08-29] MEDS ORDERED: PROPOFOL 40 ML ONE (12:36)
[2018-08-29] MEDS ORDERED: Fentanyl 100 MCG/2 ML VIAL ONE (12:36)
[2018-08-29] MEDS ORDERED: Midazolam HCl 2 mg/2 ml Vial ONE (12:36)
[2018-08-29] MEDS ORDERED: Bupivacaine/Epinephrine 0.25% 30 ML VIAL ONE ×2 (15:46→23:48)
[2018-08-29] MEDS ORDERED: Sodium Chloride 0.9% 30 ML ONE ×2 (15:46→23:48)
[2018-08-29] MEDS ORDERED: Lidocaine 2% PF 5 ML VIAL ONE (15:48)
[2018-08-29] MEDS ORDERED: Ondansetron HCl/PF 4 MG/2 ML Vial IVP PRN (16:32)
[2018-08-29] MEDS ORDERED: methylPREDNISolone Sod Succ 40 MG VIAL IVP SCH (18:30)
--- NOTE | 2018-08-29 19:05 | RAD ---
RADIOGRAPH CHEST 1 VIEW: DATE: 08-29-18 TIME: 5:21 P.M. HISTORY: 68-year-old male status post central line placement. FINDINGS: The thoracic aorta is tortuous and ectatic. There is no evidence of air space density, pneumothorax, or pulmonary edema. The lateral costophrenic angles are sharp. Compared to previous study of 08-28-18 , there is a new left subclavian implantable access port with distal tip overlying the proximal SVC. IMPRESSION: 1) No acute pulmonary findings. 2) Ectasia of thoracic aorta. 3) Interval placement of left subclavian implantable vascular access port without pneumothorax. jn POS: JIN
--- NOTE | 2018-08-29 22:48 | OP ---
DATE OF PROCEDURE: 08/29/2018 PREOPERATIVE DIAGNOSES: 1. Difficulty with IV access. 2. Coronary artery disease status post kidney transplant. 3. Multiple comorbidities. POSTOPERATIVE DIAGNOSES: 1. Difficulty with IV access. 2. Coronary artery disease status post kidney transplant. 3. Multiple comorbidities. PROCEDURE PERFORMED: Placement of 8.5-Samo[place] left subclavian Port-A-Cath under fluoroscopy. ANESTHESIA: Monitored anesthesia care. INDICATIONS FOR PROCEDURE: A 68-year-old man with history of significant comorbidities. The patient has a history of recurrent hospitalizations. Each time, difficulty with IV access. hospitalization, multiple attempts to secure the peripheral IVs have been unsuccessful. I have been asked to place the Port-A-Cath to facilitate ongoing therapeutics. DESCRIPTION OF PROCEDURE: Informed consent obtained from the patient and his . The patient was brought to the operating room and placed in supine position. Under monitored anesthesia care, the left chest wall was sterilely prepped and draped in usual fashion. The skin below the left clavicle was anesthetized with 0.25% Marcaine with epinephrine. The left subclavian vein was cannulated with an 18-gauge introducer needle returning dark venous blood. Guidewire was passed through the needle and advanced into the left subclavian vein without resistance. The needle was withdrawn over the guidewire. A stab incision was made adjacent to the guidewire using an 11 scalpel. A dilator was passed over the guidewire, dilating the subcutaneous tissues. The dilator was then assembled with an introducer sheath placed over the guidewire as a unit and advanced into the left subclavian vein without resistance. The guidewire and the dilator were removed as a unit leaving the introducer sheath in place, through which an 8.5-Samo[place] catheter was advanced into the left subclavian vein without resistance. The introducer peel-away sheath was removed. The catheter was fashioned to length under direct fluoroscopy. A subcutaneous pocket was raised below the catheter insertion site. I achieved this using a 15 scalpel to incise the skin. The subcutaneous pocket was developed using cautery with good hemostasis. The distal end of the catheter was tunneled through the subcutaneous pocket and assembled into the well of the Port-A-Cath, which was imbedded into the subcutaneous pocket. This was secured to anterior chest wall using 3-0 nylon suture at two points. Dark venous blood was aspirated from the port freely, which was then flushed with saline followed by . A Alvarez needle was used to access the port. Subcutaneous tissue was approximated over the port using interrupted sutures of 3-0 Vicryl. The skin incision was closed using running stitch of 4-0 Monocryl suture in subcuticular fashion. The previous stab incision was also closed using interrupted sutures of 4-0 Monocryl in subcuticular fashion. The patient tolerated the procedure without any apparent complication and was returned to the recovery room in satisfactory condition. Job ID: [id number]
[2018-08-30] MEDS ORDERED: Midazolam HCl 2 mg/2 ml Vial ONE (00:07)
[2018-08-30] MEDS ORDERED: Sodium Chloride 0.9% 0 ML ONE (01:02)
[2018-08-30] MEDS: Amitriptyline HCl 25 MG TAB PO SCH ×2 (01:15→20:32)
[2018-08-30] MEDS: Calcium Carbonate 500 MG ChewTAB PO SCH ×3 (01:15→20:31)
[2018-08-30] MEDS: Magnesium Oxide 400 MG TAB PO SCH ×3 (01:16→20:31)
[2018-08-30] MEDS: Docusate 100 MG CAP PO SCH ×3 (01:16→20:31)
[2018-08-30] MEDS: Hydrocortisone 10 mg Tablet PO SCH ×2 (01:16→20:31)
[2018-08-30] MEDS: Insulin Glargine 25 UNITS in Pre-Filled Syringe 1 EACH SC SCH ×2 (01:16→20:30)
[2018-08-30] MEDS: Pantoprazole 40 MG VIAL IVP SCH ×3 (01:17→20:30)
[2018-08-30] MEDS: Fosphenytoin Sodium 100 MG in Sodium Chloride 0.9% 50 ML IVPB SCH ×5 (01:18→18:47)
[2018-08-30] MEDS ORDERED: Sodium Chloride 0.9% 20 ML ONE (01:18)
[2018-08-30] MEDS: CYCLOSPORINE IVPB SCH ×2 (03:12→20:29)
[2018-08-30] MEDS: SODIUM CHLORIDE 0.9% IVPB SCH ×2 (03:12→20:29)
--- NOTE | 2018-08-30 03:16 | OP ---
DATE OF PROCEDURE: 08/29/2018 PREOPERATIVE DIAGNOSIS: Malfunctioned left subclavian Port-A-Cath. POSTOPERATIVE DIAGNOSIS: Malfunctioned left subclavian Port-A-Cath. PROCEDURE PERFORMED: Revision left subclavian Port-A-Cath with 8.5-[place] catheter. ANESTHESIA: Monitored anesthesia care and local. INDICATIONS FOR PROCEDURE: A 68-year-old man who was admitted with mental status change and electrolyte imbalance. The patient requires IV access. He has had multiple admissions for various ailments. He has a complex medical history. A Port-A-Cath was placed earlier today, which failed to draw at the floor. Multiple attempts to reposition this without surgery were without success. The patient was brought to the operating room for revision. DESCRIPTION OF PROCEDURE: Informed consent was obtained from the patient's . The patient was brought to the operating room and placed in supine position. Under monitored anesthesia care, the chest wall was sterilely prepped and draped in usual fashion. The previous incisional wound was reopened. The catheter was grasped through the previous puncture site and then the catheter was amputated at the well. The well was removed from the subcutaneous pocket. We were then able to pass a Glidewire through the catheter and advanced into the left subclavian vein without resistance. Proper placement was confirmed by fluoroscopy. The catheter was withdrawn over the guidewire. The dilator and introducer sheath were then passed over the guidewire as a unit and placed in the left subclavian vein without resistance. The guidewire and dilator were removed as a unit. Another 8.5-[place] Islander catheter was advanced through the introducer sheath and placed in the left subclavian vein without resistance. The introducer sheath was peeled away. The catheter was fashioned to length under fluoroscopy and then connected to the port well, which was then embedded into the subcutaneous pocket. The catheter was secured to anterior chest wall at the fascia level using 3-0 nylon suture. Subcutaneous tissues were approximated over the port using interrupted sutures of 3-0 Vicryl. Alvarez needle was used to access the well. Dark venous blood was easily aspirated and the catheter was flushed first with saline and then heparin. The skin incision was closed using a running stitch of 4-0 Monocryl suture in subcuticular fashion. The puncture site was also closed using a single stitch of 4-0 Monocryl in subcuticular fashion. Dermabond was applied over incisional closure. The patient tolerated the operation without any apparent complication and was returned to the recovery room in satisfactory condition. Job ID: [id number]
[2018-08-30] MEDS: traMADol HCl 50 MG TAB PO PRN ×2 (04:46→20:43)
[2018-08-30] MEDS: Ondansetron ODT 4 MG TAB PO PRN ×2 (04:48→20:46)
[2018-08-30] MEDS: Multivitamins, Adult 10 ML, Folic Acid 1 MG, Thiamine HCl 100 MG in Dextrose 5 %-0.45 %... IV SCH ×2 (05:00→13:19)
--- NOTE | 2018-08-30 06:05 | PDOC.FM ---
- Subjective Subjective: Still not taking meds PO. Had revision of mediport late last night 1130. Since he returned to his room he has not been able to sleep. Has been restless rolling around in the bed. Denies pain. Unable state is name. - Objective MAR Reviewed: Yes Vital Signs & Weight: Vital Signs (12 hours) Temp Pulse Resp BP Pulse Ox 08/29/18 22:30 99 08/29/18 20:00 99.2 F 110 H 20 130/74 99 Weight Weight 103.4 kg I&O: 08/28/18 08/29/18 08/30/18 05:59 06:59 06:59 Intake Total 350 Output Total 250 Balance 100 Result Diagrams: 08/29/18 06:17 08/29/18 06:17 Phys Exam - Physical Examination Constitutional: NAD HEENT: moist MMs Neck: supple Respiratory: no wheezing, clear to auscultation bilateral Cardiovascular: RRR, no significant murmur Gastrointestinal: soft, non-tender, positive bowel sounds Musculoskeletal: pulses present Neurological: moves all 4 limbs Psychiatric: normal affect Deviation from normal: not oriented to person, place or thing. Skin: cap refill <2 seconds Dx/Plan (1) Acute encephalopathy Code(s): G93.40 - ENCEPHALOPATHY, UNSPECIFIED Status: Acute (2) Seizures Code(s): R56.9 - UNSPECIFIED CONVULSIONS Status: Chronic (3) Tachycardia Code(s): R00.0 - TACHYCARDIA, UNSPECIFIED Status: Acute (4) Viral gastroenteritis Code(s): A08.4 - VIRAL INTESTINAL INFECTION, UNSPECIFIED Status: Acute (5) Adrenal insufficiency Code(s): E27.40 - UNSPECIFIED ADRENOCORTICAL INSUFFICIENCY Status: Chronic (6) CAD (coronary artery disease) Code(s): I25.10 - ATHSCL HEART DISEASE OF [place] CORONARY ARTERY W/O ANG PCTRS Status: Chronic Qualifiers: Coronary Disease-Associated Artery/Lesion type: [place] artery Associated angina: without angina (7) CKD (chronic kidney disease) stage 3, GFR 30-59 ml/min Status: Chronic (8) COPD (chronic obstructive pulmonary disease) Status: Chronic Qualifiers: COPD type: COPD with acute exacerbation Qualified Code(s): J44.1 - Chronic obstructive pulmonary disease with (acute) exacerbation (9) GERD (gastroesophageal reflux disease) Code(s): K21.9 - GASTRO-ESOPHAGEAL REFLUX DISEASE WITHOUT ESOPHAGITIS Status: Chronic (10) Hx of kidney transplant Status: Chronic (11) Hyperlipidemia Code(s): E78.5 - HYPERLIPIDEMIA, UNSPECIFIED Status: Chronic (12) Hypothyroid Code(s): E03.9 - HYPOTHYROIDISM, UNSPECIFIED Status: Chronic (13) IDDM (insulin dependent diabetes mellitus) Code(s): E11.9 - TYPE 2 DIABETES MELLITUS WITHOUT COMPLICATIONS; Z79.4 - EXTRACTIVE METALLURGIST (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 Acute encephalopathy - Unknown etiology. Pt with decreased PO intake 2/2 n/v/d. - UA/CXR nml. Aferile, no leukocytosis - Dilantin level low, restarted phenytoin IV - AM cortisol level low given kenalog IM and started on methylpred IV - Gen surgery consulted, Mediport placed 08/30 - If no improvement with steroids consider repeat EEG - Neurology consulted - Zofran and reglan PRN, banana bag daily - Pt not taking PO meds, medications adjusted to IV if possible Seizure disorder - Dilantin level low - Continue Fosphenytoin Hip Pain - Xray with no acute fracture CAD - trop neg x1 - Continue home meds s/p Renal transplant on immunosuppresion - Continue Cyclosporine and steroids. Pts home Cellcept and Tacrolimus not available IV - Nephrology consulted, apprec recs HLD - Continue home meds Adrenal insufficiency 2/2 chronic steroid use - Given stress dose steroids DMII - Lantus 35U in AM, 25U HS - Mild SSI & Hypoglycemic protocol - CC diet - Accuchecks ACHS GERD - continue home meds Gout - Continue home meds Neuropathy - Continue home meds Hx of HSV encephalitis - IR guided LP recommended in future. Pt declined last hospitalization S/p Renal Transplant - Continue home meds Physical deconditioning - PT/OT - Recommended SNIF vs Rehab last hospitalization, pt declined COPD - Continue home meds HFpEF - Continue home meds HTN - Continue home meds Hypothyroidism - Continue home meds JUDI - Continue CPAP Prostate Cancer Code status: FULL DVT ppx: Lovenox PCP: Dr Christina
--- NOTE | 2018-08-30 09:08 | RAD ---
CHEST ONE VIEW: HISTORY: Port catheter placement. COMPARISON: Radiograph from the prior day. FINDINGS: The port catheter is in place with the tip at the inferior SVC, in good position. Heart size is at t he upper limits of normal. Mild pulmonary vascular congestion. No pneumothorax or large effusion. IMPRESSION: Uncomplicated placement of the port catheter. POS: CET
[2018-08-30] MEDS: Digoxin 0.5 MG/2 ML AMP SLOW IVP SCH (09:18)
--- NOTE | 2018-08-30 09:20 | HP ---
ADDENDUM: Please see the history and physical done by Dr. Paulson this morning, as well as the progress note done by Dr. Cristobal this morning, for which I agree. The patient was seen, evaluated, and discussed with the residents. HISTORY OF PRESENT ILLNESS: This is an extremely complicated 68-year-old gentleman, who has had intermittent episodes of decreased mentation and altered mental status now for at least 2, maybe 3 admits for this. In the past admissions, did show once in EEG, which showed seizure activity and bitemporally and there were some question of the time, this may be herpetic encephalopathy or encephalitis because he is chronically immunosuppressed. Apparently, he was put on phenytoin, but that was stopped for a while, but thought maybe that was causing more sedation as an outpatient, but then 2 to 3 days before admission, started having just generally less alertness and just started getting more and more sedated. Still occasionally talk, occasionally with swallow pills, maybe had some nausea and vomiting, little bit of diarrhea as well. Then possibly a little bit more jerking and twitching of the hands and arms, but it sounds like he has done well a little bit chronically. The patient is an extraordinarily complicated patient. His mentation diminished again. Has adrenal insufficiency from chronic steroid use because of renal transplant and also has metastatic prostate cancer; however, no lesions seen on the brain either on an MRI in June nor on the CAT scan done on this admission. Denies fever. Extremely complex. PAST MEDICAL HISTORY: Per the history and physical, for which I agree. PAST SURGICAL HISTORY: Per the history and physical, for which I agree. FAMILY HISTORY: Per the history and physical, for which I agree. SOCIAL HISTORY: Per the history and physical, for which I agree. REVIEW OF SYSTEMS: Per the history and physical, for which I agree. MEDICATIONS: Extremely long list of current medicines also on that and reviewed. PHYSICAL EXAMINATION: GENERAL: On exam, definitely sedated and does talk occasionally, but just seems somewhat lethargic, unable to really answer questions, but did seem to get wax and wane even after seeing him over a couple hours at different times. No apparent distress. No respiratory distress. VITAL SIGNS: Stable. Afebrile. HEENT: Most part is within normal limits. He is slightly pale. Moist mucosa. CHEST: Clear. HEART: Regular rate and rhythm. ABDOMEN: Benign. EXTREMITIES: Show trace edema. He is just kind diffusely tender, also his hips are tender. Movement on the left leg seemed to cause some tenderness as well. LABORATORY DATA: Lab results significant for chronic anemia, but that is really unchanged. Has elevated alkaline phosphatase from the metastatic disease, but really not that high, not much change there either. Albumin level is fairly low. CT of the head again was normal. CT of the neck does show a new metastatic lesion in C1. ASSESSMENT AND PLAN: Altered mental status and encephalopathy. At this point in time, it is unclear what the etiology of this is. Does have a seizure disorder sounds like he was off the phenytoin and then his levels came back this morning low, so almost wonder if he is postictal and having seizures. We will get Neurology involved and get their opinion. His cortisol level was really low and so we will give him some shot of Kenalog and see if that will help some as he right now is not taking p.o. very well and has absolutely no IV access as well. But, still we will get IV access and I will probably switch him over back to [facility]. We will probably order an EEG as well. There was some question about herpetic encephalitis and will run by Neurology. Last time they tried to get spinal fluid on him, they were really unable to get and not actually get the levels drawn. I think is probably not a bad idea that we can get HSV, IgG, and IgM just at least ruled it out. If it is positive, it does not rule it in without a spinal fluid analysis, which should rule it out. Also trying to figure out the vascular access on him as he is an impossible stick, where we cannot even seem to get blood draw and cannot seem me to get an IV started. This is a recurring problem and this gentleman is in and out of the hospital quite often. Going to have surgery potentially, but in more of a permanent line that can be used for lab draws and future IV access. If he does not perk up mentally, we are going to switch to allow these medicines to be through the IV. Always extremely complicated. Numerous other medical problems including chronic obstructive pulmonary disease, hypertension, seizure disorder, hypothyroidism, reflux, heart disease, gout, adrenal insufficiency, etc. We will resume all his home medications once he is able to take some basically. With metastatic prostate cancer and he has numerous medical problems, certainly prognosis is extremely poor at this point in time. But hopefully, mentation will improve similar to his last couple admits. Job ID: [id number]
[2018-08-30] MEDS: Allopurinol 100 MG TAB PO SCH (09:23)
[2018-08-30] MEDS: Bumetanide 1 MG/4 ML VIAL IVP SCH (09:23)
[2018-08-30] MEDS: Calcitriol 0.25 MCG CAP PO SCH (09:24)
[2018-08-30] MEDS: Loratadine 10 MG TAB PO SCH (09:24)
[2018-08-30] MEDS: Potassium Chloride 20 MEQ TAB PO SCH (09:24)
[2018-08-30] MEDS: Montelukast Sodium 10 mg Tablet PO SCH (09:24)
[2018-08-30] MEDS: Aspirin 325 mg Enteric Coated Tablet PO SCH (09:26)
[2018-08-30] MEDS: Atorvastatin Calcium 10 MG TAB PO SCH (09:26)
[2018-08-30] MEDS: Amlodipine 5 MG TAB PO SCH (09:26)
[2018-08-30] MEDS: Folic Acid 1 MG TAB PO SCH (09:26)
[2018-08-30] MEDS: Enoxaparin Sodium 40 MG/0.4 ML SYRINGE SC SCH (09:31)
[2018-08-30] MEDS: Insulin Glargine 35 UNITS in Pre-Filled Syringe 1 EACH SC SCH (09:31)
[2018-08-30] MEDS: HumaLOG 300 UNITS/3 ML VIAL SC PRN (11:49)
--- NOTE | 2018-08-30 12:26 | PRG ---
DATE OF SERVICE: Mr. Joseph is a 68-year-old black man with a history of renal insufficiency and metastatic prostate cancer as well as cerebrovascular disease. He was brought in by his concerned over decline in his mental status in the last 2-3 days. This morning he seems back to his usual self. He is awake, alert, in no distress. We have also reviewed his almost 40 medications and I have asked the residents to please examine these and discontinue those that are not absolutely necessary. His labs this morning reveal a white count of 7100, hemoglobin of 8 with hematocrit of 25.9, reflecting his usual anemia of chronic disease and metastatic prostate cancer. His chemistries show a sodium 142, potassium 3.5, chloride 105, bicarb 24, BUN 6, creatinine 0.65. Cortisol level was low at 2, and he has been placed back on hydrocortisone replacement. Clinically, he has improved and his mentation has improved. Job ID: [id number]
--- NOTE | 2018-08-30 12:40 | PRG ---
DATE OF SERVICE: 08/30/2018 This is a 68-year-old gentleman, who had a revision to his left subclavian Port-A-Cath with 8.5-[place] catheter done by Dr. Reyna on 08/29/2018. The patient is awake and alert. Family at bedside. Site already accessed and medications infusing. Site without any hematoma. We will sign off on the patient as the site looks good. The patient was evaluated with Dr. Hernandez today during morning rounds. Job ID: [id number]
[2018-08-30 13:07] LABS: Digoxin 0.92 ng/mL (0.8-2.0)
--- NOTE | 2018-08-30 17:21 | CON ---
DATE OF CONSULTATION: CHIEF COMPLAINT: Possible seizures. HISTORY OF PRESENT ILLNESS: The patient's was by the bedside and I have seen him in the past itself. The patient is unable to give much history. His stated that the patient started twitching and jerking. They were trying to wean off phenytoin. He became altered and weak. He also had nausea and vomiting. He is not on dialysis. He is a renal transplant patient. He has been barely been at home. He has been in and out of hospitalization since April. I have seen him during one of his more recent hospitalizations in the past 3-4 months. He has had prior CSF studies as well to understand whether he has any kind of encephalitis and his CSF studies were negative. The patient is not on Keppra. He continues to have involuntary movements of the jaw and mouth. PAST MEDICAL HISTORY: Positive for renal transplant and renal impairment in the past and he also has coronary artery disease, type 2 diabetes, on insulin, gastroesophageal reflux disease, hyperlipidemia, hypercholesterolemia, prostate cancer, bone marrow malignancy, herpes viral encephalitis, COPD, kidney transplant on August 28. SURGICAL HISTORY: Kidney transplant of the left kidney, dialysis in the past. He has an old fistula in the left upper arm. Prostate surgery, cholecystectomy, hernia repair x3. SOCIAL HISTORY: He lives at home with family. is his primary caregiver. He does not drink or smoke. His renal transplant was performed on August 28, which was very recent this month. CURRENT MEDICATIONS: He is on: 1. Hydrocodone. 2. Allopurinol. 3. Amitriptyline. 4. Amlodipine. 5. Aspirin. 6. Atorvastatin. 7. Benzonatate. 8. Bumex. 9. Calcitriol. 10. Tums. 11. Colchicine. 12. Cyclosporine. 13. Digoxin. 14. Docusate sodium. 15. Lovenox. 16. Folic acid plus fosphenytoin was given to him yesterday. 17. He is also on glucagon and hydrocortisone as needed. REVIEW OF SYSTEMS: CARDIOVASCULAR: Negative for chest pain or palpitations. PULMONARY: Negative for any cough or shortness of breath. GI: Positive for nausea and vomiting. GENITOURINARY: Negative for any acute dysuria or hematuria. NEUROLOGICAL: Positive for possible seizures again,. HEMATOLOGICAL: Positive for anemia. Negative for bleeding diathesis. PSYCHIATRIC: Normal. LABORATORY WORKUP: White count 7.1, hemoglobin 8, hematocrit 25.9, platelets 186. Chemistry; glucose 420, sodium 142, potassium 3.5, chloride 105, bicarb 24, BUN 6, creatinine 0.65, glucose 116, and troponin 0.05 and 0.038. BNP 97.2, albumin 2.6, globulin 2.1, AST 22, ALT 22. Serum digoxin 0.92. Serum phenytoin level 1.9. Urine ketones are 15. PHYSICAL EXAMINATION: VITAL SIGNS: Blood pressure 123/68, temperature 98.7, pulse 128, respiratory rate 16. GENERAL APPEARANCE: Well-built, well-nourished gentleman with old left arm AV fistula. He has venous stasis in both lower extremities. CHEST: Clear vesicular breathing. He also has a port placement on the left chest wall area which is tender. CARDIOVASCULAR: S1, S2 heard. No murmurs. ABDOMEN: Soft. NEUROLOGICAL: Higher intellectual functions, the patient is oriented to place and person, but not to date, month, or year. Cranial nerves; normal extraocular movements. Pupils 2.5 mm, reactive to light. Normal sensation of face bilaterally. Normal hearing bilaterally. Tongue midline. No atrophy noted. Normal elevation of palate. Motor examination; bulk normal strength. Tone is normal. Strength 5/5 in both lower extremities. In upper extremities, his strength was 5-/5 in the left arm. His muscle groups tested are deltoid, biceps, triceps, wrist extension and flexion, finger extension and flexion, iliopsoas, hamstrings, quadriceps, ankle dorsiflexion, plantar flexion. Deep tendon reflexes were absent throughout. Sensory, decreased sensation in both lower extremities distally and cerebellar; normal [id number], [id number]. IMPRESSION: The patient is a 68-year-old man with known renal problems. He just underwent a renal transplant. In the past, there was concern for herpes encephalitis and he had two spinal taps on two different time spans and he is known to have seizures. He has been recently going through some changes in weaning off phenytoin and his phenytoin was restarted on this admission. At this time, he seems to have some mild baseline confusion, which I have known him to have. He is also having some involuntary movements in the jaw and tongue area attributable to tardive dyskinesia. Clinical diagnosis and history are most consistent with a seizure disorder with some breakthrough seizure due to change in medications. RECOMMENDATIONS: I started him on Keppra. I will also request an MRI of the brain to make sure there is no other impending issue as far as SIZING MACHINE OPERATOR vasculature is concerned. I will follow up the patient tomorrow again. Job ID: [id number]
[2018-08-31] MEDS: Fosphenytoin Sodium 100 MG in Sodium Chloride 0.9% 50 ML IVPB SCH ×3 (03:39→19:00)
--- NOTE | 2018-08-31 07:29 | PDOC.FM ---
- Subjective Subjective: Feeling well this morning. His eyes are burning and bothering him. Reports decreased vision although visual acuity and dupree of vision appear normal. Denies pain, weakness. Still has poor appetite but able to tolerate meds by mouth now. Alert and oriented to person place and time. - Objective MAR Reviewed: Yes Vital Signs & Weight: Vital Signs (12 hours) Temp Pulse Resp BP Pulse Ox 08/31/18 04:00 97.9 F 97 20 131/70 94 L 08/30/18 19:54 98.4 F 99 20 148/78 H 94 L Weight Weight 103.4 kg I&O: 08/30/18 08/31/18 09/01/18 06:59 06:59 06:59 Intake Total 350 2405 Output Total 250 960 Balance 100 1445 Result Diagrams: 08/29/18 06:17 08/29/18 06:17 Phys Exam - Physical Examination Constitutional: NAD Slurred speach. HEENT: moist MMs Neck: supple Respiratory: no wheezing, clear to auscultation bilateral Cardiovascular: RRR, no significant murmur Gastrointestinal: soft, non-tender, positive bowel sounds Musculoskeletal: no edema pain over mediport site Neurological: moves all 4 limbs Psychiatric: normal affect, A&O x 3 Deviation from normal: Oriented to person place and time Skin: cap refill <2 seconds Dx/Plan (1) Acute encephalopathy Code(s): G93.40 - ENCEPHALOPATHY, UNSPECIFIED Status: Acute (2) Seizures Code(s): R56.9 - UNSPECIFIED CONVULSIONS Status: Chronic (3) Tachycardia Code(s): R00.0 - TACHYCARDIA, UNSPECIFIED Status: Acute (4) Viral gastroenteritis Code(s): A08.4 - VIRAL INTESTINAL INFECTION, UNSPECIFIED Status: Acute (5) Adrenal insufficiency Code(s): E27.40 - UNSPECIFIED ADRENOCORTICAL INSUFFICIENCY Status: Chronic (6) CAD (coronary artery disease) Code(s): I25.10 - ATHSCL HEART DISEASE OF [place] CORONARY ARTERY W/O ANG PCTRS Status: Chronic Qualifiers: Coronary Disease-Associated Artery/Lesion type: [place] artery Associated angina: without angina (7) CKD (chronic kidney disease) stage 3, GFR 30-59 ml/min Status: Chronic (8) COPD (chronic obstructive pulmonary disease) Status: Chronic Qualifiers: COPD type: COPD with acute exacerbation Qualified Code(s): J44.1 - Chronic obstructive pulmonary disease with (acute) exacerbation (9) GERD (gastroesophageal reflux disease) Code(s): K21.9 - GASTRO-ESOPHAGEAL REFLUX DISEASE WITHOUT ESOPHAGITIS Status: Chronic (10) Hx of kidney transplant Status: Chronic (11) Hyperlipidemia Code(s): E78.5 - HYPERLIPIDEMIA, UNSPECIFIED Status: Chronic (12) Hypothyroid Code(s): E03.9 - HYPOTHYROIDISM, UNSPECIFIED Status: Chronic (13) IDDM (insulin dependent diabetes mellitus) Code(s): E11.9 - TYPE 2 DIABETES MELLITUS WITHOUT COMPLICATIONS; Z79.4 - 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 Acute encephalopathy - Unknown etiology. Pt with decreased PO intake 2/2 n/v/d. - UA/CXR nml. Aferile, no leukocytosis - Dilantin level low, restarted phenytoin IV - Gen surgery consulted, Mediport placed 08/30 - Neurology consulted, apprec recs - Started on Keppra 08/31 - Zofran and reglan PRN, banana bag daily - Continue IV methylpred - MRI today Seizure disorder - Dilantin level low - Continue Fosphenytoin Hip Pain - Xray with no acute fracture CAD - trop neg x1 - Continue home meds s/p Renal transplant on immunosuppresion - Continue Cyclosporine and steroids. Pts home Cellcept and Tacrolimus not available IV - Nephrology consulted, apprec recs HLD - Holding home meds Adrenal insufficiency 2/2 chronic steroid use - Given stress dose steroids DMII - Lantus 35U in AM, 25U HS - Mild SSI & Hypoglycemic protocol - CC diet - Accuchecks ACHS GERD - continue home meds Gout - Continue home meds Neuropathy - Continue home meds Hx of HSV encephalitis - IR guided LP recommended in future. Pt declined last hospitalization S/p Renal Transplant - Continue home meds Physical deconditioning - PT/OT - Recommended SNIF vs Rehab COPD - Continue home meds HFpEF - Continue home meds HTN - Continue home meds Hypothyroidism - Continue home meds JUDI - Continue CPAP Prostate Cancer Code status: FULL DVT ppx: Lovenox PCP: Dr Christina
[2018-08-31] MEDS: Insulin Glargine 35 UNITS in Pre-Filled Syringe 1 EACH SC SCH (08:08)
[2018-08-31] MEDS: Bumetanide 1 MG/4 ML VIAL IVP SCH (08:10)
[2018-08-31] MEDS: Amlodipine 5 MG TAB PO SCH (08:13)
[2018-08-31] MEDS: Allopurinol 100 MG TAB PO SCH (08:15)
[2018-08-31] MEDS: Potassium Chloride 20 MEQ TAB PO SCH (08:16)
[2018-08-31] MEDS: Calcium Carbonate 500 MG ChewTAB PO SCH ×2 (08:17→20:16)
[2018-08-31] MEDS: Docusate 100 MG CAP PO SCH ×2 (08:17→20:17)
[2018-08-31] MEDS: Folic Acid 1 MG TAB PO SCH (08:18)
[2018-08-31] MEDS: Calcitriol 0.25 MCG CAP PO SCH (08:18)
[2018-08-31] MEDS: Magnesium Oxide 400 MG TAB PO SCH ×2 (08:19→20:16)
[2018-08-31] MEDS: Pantoprazole 40 MG VIAL IVP SCH ×2 (08:20→20:17)
[2018-08-31] MEDS: Tacrolimus 1 MG CAP PO SCH ×2 (08:22→20:16)
[2018-08-31] MEDS: Enoxaparin Sodium 40 MG/0.4 ML SYRINGE SC SCH (08:24)
[2018-08-31] MEDS: Digoxin 0.5 MG/2 ML AMP SLOW IVP SCH (08:25)
[2018-08-31] MEDS: Mycophenolate 250 MG CAP PO SCH ×2 (09:32→20:16)
[2018-08-31] MEDS ORDERED: Bacteriostatic Water 30 ML VIAL FS PRN (12:04)
[2018-08-31] MEDS ORDERED: methylPREDNISolone Sod Succ 40 MG VIAL IVP SCH (12:15)
--- NOTE | 2018-08-31 12:47 | PRG ---
DATE OF SERVICE: 08/31/2018 SUBJECTIVE: Mr. Joseph is resting quietly in bed, in no distress. He was seen by the Urology Service and we appreciate their input. We are awaiting results of an MRI. Neurology also recommended that we start him on Keppra as they felt he may be having seizures. Job ID: [id number]
--- NOTE | 2018-08-31 14:12 | PRG ---
DATE OF SERVICE: 08/31/2018 CHIEF COMPLAINT: Altered mental status and recent seizures. INTERVAL HISTORY: The patient reports he is doing better today and he is more communicative and oriented. He knows it is spring and it is August. When we saw the patient, the patient was somewhat sleepy. His MRI was still pending at the time of my evaluation, and it has been completed, result is still pending. LABORATORY WORKUP: White count 7.1, hemoglobin 8, hematocrit 25.9, and platelets 186. Glucose 196. OBJECTIVE: VITAL SIGNS: Blood pressure 150/75, pulse 85, and temperature 97.8. GENERAL APPEARANCE: The patient is somewhat sleepy, but follows commands. Cranial nerves, he has no facial droop. Normal extraocular movements. Tongue midline. MOTOR: Bulk normal. Tone normal. Strength is 5/5 bilaterally. IMPRESSION: The patient with some confusion and seizures. He is doing better overall, per his when he was talking to her and is more oriented now. He has had no further seizures. For now, plan will be to continue Keppra. RECOMMENDATIONS: Please continue Keppra even when he is discharged. He can see Dr. Velez as an outpatient. Job ID: [id number] MTDD
--- NOTE | 2018-08-31 14:18 | MRI ---
MRI BRAIN WITHOUT IV CONTRAST: HISTORY: Altered mental status. Seizure. Concern for stroke. COMPARISON: 06/26/2018 FINDINGS: No evidence for abnormal diffusion. Normal ADC map. Bilateral atrophy and chronic white matter isch emic changes. Motion artifact on multiple sequences. No evidence for mass or acute hemorrhage. Sta ble appearance from prior study. IMPRESSION: Stable atrophy and mild chronic white matter ischemic change. No evidence for acute infarct. No mas s, bleed, or other acute process. POS: ABDOUL
[2018-08-31] MEDS: HumaLOG 300 UNITS/3 ML VIAL SC PRN (16:59)
[2018-08-31] MEDS: traMADol HCl 50 MG TAB PO PRN (19:05)
[2018-08-31] MEDS ORDERED: Methyl Salicylate/Menthol 85 GM TUBE TOP PRN (19:44)
[2018-08-31] MEDS: Amitriptyline HCl 25 MG TAB PO SCH (20:16)
[2018-08-31] MEDS: Insulin Glargine 25 UNITS in Pre-Filled Syringe 1 EACH SC SCH (20:21)
[2018-09-01] MEDS: Fosphenytoin Sodium 100 MG in Sodium Chloride 0.9% 50 ML IVPB SCH ×3 (03:36→17:54)
[2018-09-01] MEDS: HumaLOG 300 UNITS/3 ML VIAL SC PRN ×2 (06:26→17:58)
--- NOTE | 2018-09-01 06:34 | PDOC.FM ---
- Subjective Subjective: Feeling better this morning. Much more alert and speech has improved and is more appropriate. Currently refusing insulin as him and his report he is not eating. Will explain importance of basal insulin. Has been up working with PT/OT. His would like SNF vs Rehab placement but pt is not agreeable. - Objective MAR Reviewed: Yes Vital Signs & Weight: Vital Signs (12 hours) Temp Pulse Resp BP Pulse Ox 09/01/18 05:35 97.8 F 70 18 117/69 96 08/31/18 20:20 98.1 F 81 18 147/83 H 94 L 08/31/18 20:00 94 L Weight Weight 103.4 kg I&O: 08/30/18 08/31/18 09/01/18 06:59 06:59 06:59 Intake Total 350 2405 Output Total 250 960 Balance 100 1445 Result Diagrams: 08/29/18 06:17 08/29/18 06:17 Phys Exam - Physical Examination Constitutional: NAD HEENT: moist MMs Neck: supple Respiratory: no wheezing, clear to auscultation bilateral Cardiovascular: RRR, no significant murmur Gastrointestinal: soft, non-tender, positive bowel sounds Musculoskeletal: pulses present Neurological: moves all 4 limbs Psychiatric: normal affect Skin: normal turgor Dx/Plan (1) Acute encephalopathy Code(s): G93.40 - ENCEPHALOPATHY, UNSPECIFIED Status: Acute (2) Seizures Code(s): R56.9 - UNSPECIFIED CONVULSIONS Status: Chronic (3) Tachycardia Code(s): R00.0 - TACHYCARDIA, UNSPECIFIED Status: Acute (4) Viral gastroenteritis Code(s): A08.4 - VIRAL INTESTINAL INFECTION, UNSPECIFIED Status: Acute (5) Adrenal insufficiency Code(s): E27.40 - UNSPECIFIED ADRENOCORTICAL INSUFFICIENCY Status: Chronic (6) CAD (coronary artery disease) Code(s): I25.10 - ATHSCL HEART DISEASE OF [place] CORONARY ARTERY W/O ANG PCTRS Status: Chronic Qualifiers: Coronary Disease-Associated Artery/Lesion type: [place] artery Associated angina: without angina (7) CKD (chronic kidney disease) stage 3, GFR 30-59 ml/min Status: Chronic (8) COPD (chronic obstructive pulmonary disease) Status: Chronic Qualifiers: COPD type: COPD with acute exacerbation Qualified Code(s): J44.1 - Chronic obstructive pulmonary disease with (acute) exacerbation (9) GERD (gastroesophageal reflux disease) Code(s): K21.9 - GASTRO-ESOPHAGEAL REFLUX DISEASE WITHOUT ESOPHAGITIS Status: Chronic (10) Hx of kidney transplant Status: Chronic (11) Hyperlipidemia Code(s): E78.5 - HYPERLIPIDEMIA, UNSPECIFIED Status: Chronic (12) Hypothyroid Code(s): E03.9 - HYPOTHYROIDISM, UNSPECIFIED Status: Chronic (13) IDDM (insulin dependent diabetes mellitus) Code(s): E11.9 - TYPE 2 DIABETES MELLITUS WITHOUT COMPLICATIONS; Z79.4 - INVESTIGATION CLERK (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 Acute encephalopathy - Unknown etiology. Pt with decreased PO intake 2/2 n/v/d. - UA/CXR nml. Aferile, no leukocytosis - Dilantin level low, restarted phenytoin IV - Gen surgery consulted, Mediport placed 08/30 - Neurology consulted, apprec recs - Started on Keppra 08/31 - Zofran and reglan PRN - Continue IV methylpred - MRI no acute change Seizure disorder - Dilantin level low - Continue Fosphenytoin & Keppra - Neurology following, apprec recs - F/u with Dr Velez outpt Hip Pain - Xray with no acute fracture CAD - trop neg x1 - Continue home meds s/p Renal transplant on immunosuppresion - Continue Cyclosporine and steroids. Pts home Cellcept and Tacrolimus not available IV - Nephrology consulted, apprec recs HLD - Holding home meds Adrenal insufficiency 2/2 chronic steroid use - Given stress dose steroids DMII - Lantus 35U in AM, 25U HS - Mild SSI & Hypoglycemic protocol - CC diet - Accuchecks ACHS GERD - continue home meds Gout - Continue home meds Neuropathy - Continue home meds Hx of HSV encephalitis - IR guided LP recommended in future. Pt declined last hospitalization S/p Renal Transplant - Continue home meds Physical deconditioning - PT/OT - Recommended SNIF vs Rehab COPD - Continue home meds HFpEF - Continue home meds HTN - Continue home meds Hypothyroidism - Continue home meds JUDI - Continue CPAP Prostate Cancer Code status: FULL DVT ppx: Lovenox PCP: Dr Christina
[2018-09-01] MEDS: Potassium Chloride 20 MEQ TAB PO SCH (08:12)
[2018-09-01] MEDS: Bumetanide 1 MG/4 ML VIAL IVP SCH (08:13)
[2018-09-01] MEDS: methylPREDNISolone Sod Succ 40 MG VIAL IVP SCH (08:15)
[2018-09-01] MEDS: Mycophenolate 250 MG CAP PO SCH ×2 (08:16→20:36)
[2018-09-01] MEDS: Magnesium Oxide 400 MG TAB PO SCH ×2 (08:17→20:37)
[2018-09-01] MEDS: Folic Acid 1 MG TAB PO SCH (08:17)
[2018-09-01] MEDS: Calcitriol 0.25 MCG CAP PO SCH (08:17)
[2018-09-01] MEDS: Allopurinol 100 MG TAB PO SCH (08:18)
[2018-09-01] MEDS: Amlodipine 5 MG TAB PO SCH (08:18)
[2018-09-01] MEDS: traMADol HCl 50 MG TAB PO PRN ×2 (08:19→17:50)
[2018-09-01] MEDS: Calcium Carbonate 500 MG ChewTAB PO SCH ×2 (08:20→20:36)
[2018-09-01] MEDS: Enoxaparin Sodium 40 MG/0.4 ML SYRINGE SC SCH (08:21)
[2018-09-01] MEDS: Pantoprazole 40 MG VIAL IVP SCH ×2 (08:22→20:36)
[2018-09-01] MEDS: Docusate 100 MG CAP PO SCH ×2 (08:30→20:37)
[2018-09-01] MEDS: Digoxin 0.5 MG/2 ML AMP SLOW IVP SCH (08:33)
[2018-09-01] MEDS: Tacrolimus 0.5 MG CAP PO SCH ×2 (08:37→20:36)
[2018-09-01] MEDS ORDERED: Insulin Glargine 35 UNITS in Pre-Filled Syringe 1 EACH SC SCH (09:00)
[2018-09-01] MEDS ORDERED: Insulin Glargine 17 UNITS in Pre-Filled Syringe 1 EACH SC SCH (11:15)
--- NOTE | 2018-09-01 12:02 | PRG ---
DATE OF SERVICE: 09/01/2018 Mr. Joseph is awake and alert this morning. He is quite cheerful and offers no new complaints. His MRI showed stable atrophy and mild chronic white matter ischemic changes. There is no evidence of an acute infarct. No evidence of a mass, bleed, or other acute process. We are awaiting SNF placement. Job ID: [id number]
[2018-09-01 20:09] LABS: HSV 2 - DNA Negative (Negative)
[2018-09-01] MEDS: Amitriptyline HCl 25 MG TAB PO SCH (20:36)
[2018-09-01] MEDS ORDERED: Insulin Glargine 15 UNITS in Pre-Filled Syringe SC SCH (21:00)
[2018-09-01] MEDS ORDERED: Insulin Glargine 25 UNITS in Pre-Filled Syringe 1 EACH SC SCH (21:00)
[2018-09-02] MEDS: Fosphenytoin Sodium 100 MG in Sodium Chloride 0.9% 50 ML IVPB SCH ×3 (03:16→19:36)
--- NOTE | 2018-09-02 06:18 | PDOC.FM ---
- Subjective Subjective: No overnight events. Pt reports he would like to go home. has some concerns about caring for him herself at home with PT/OT only twice per week. She feels that he is 75% back to his normal self. Pt denies pain, SOB. Oriented to person and place but not time. - Objective MAR Reviewed: Yes Vital Signs & Weight: Vital Signs (12 hours) Temp Pulse Resp BP Pulse Ox 09/01/18 20:00 97.4 F L 67 18 111/69 99 Weight Weight 103.4 kg I&O: 08/31/18 09/01/18 09/02/18 06:59 06:59 06:59 Intake Total 2405 Output Total 960 Balance 1445 Result Diagrams: 08/29/18 06:17 08/29/18 06:17 Phys Exam - Physical Examination Constitutional: NAD HEENT: moist MMs Neck: supple Respiratory: no wheezing, clear to auscultation bilateral Cardiovascular: RRR, no significant murmur Gastrointestinal: soft, non-tender, positive bowel sounds Musculoskeletal: pulses present Neurological: moves all 4 limbs Psychiatric: normal affect Deviation from normal: oriented to person and place but not time. Skin: normal turgor Dx/Plan (1) Acute encephalopathy Code(s): G93.40 - ENCEPHALOPATHY, UNSPECIFIED Status: Acute (2) Seizures Code(s): R56.9 - UNSPECIFIED CONVULSIONS Status: Chronic (3) Tachycardia Code(s): R00.0 - TACHYCARDIA, UNSPECIFIED Status: Acute (4) Viral gastroenteritis Code(s): A08.4 - VIRAL INTESTINAL INFECTION, UNSPECIFIED Status: Acute (5) Adrenal insufficiency Code(s): E27.40 - UNSPECIFIED ADRENOCORTICAL INSUFFICIENCY Status: Chronic (6) CAD (coronary artery disease) Code(s): I25.10 - ATHSCL HEART DISEASE OF [place] CORONARY ARTERY W/O ANG PCTRS Status: Chronic Qualifiers: Coronary Disease-Associated Artery/Lesion type: [place] artery Associated angina: without angina (7) CKD (chronic kidney disease) stage 3, GFR 30-59 ml/min Status: Chronic (8) COPD (chronic obstructive pulmonary disease) Status: Chronic Qualifiers: COPD type: COPD with acute exacerbation Qualified Code(s): J44.1 - Chronic obstructive pulmonary disease with (acute) exacerbation (9) GERD (gastroesophageal reflux disease) Code(s): K21.9 - GASTRO-ESOPHAGEAL REFLUX DISEASE WITHOUT ESOPHAGITIS Status: Chronic (10) Hx of kidney transplant Status: Chronic (11) Hyperlipidemia Code(s): E78.5 - HYPERLIPIDEMIA, UNSPECIFIED Status: Chronic (12) Hypothyroid Code(s): E03.9 - HYPOTHYROIDISM, UNSPECIFIED Status: Chronic (13) IDDM (insulin dependent diabetes mellitus) Code(s): E11.9 - TYPE 2 DIABETES MELLITUS WITHOUT COMPLICATIONS; Z79.4 - OPERATOR BEARER SYSTEMS (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 Acute encephalopathy - Unknown etiology. Pt with decreased PO intake 2/2 n/v/d. - UA/CXR nml. Aferile, no leukocytosis - Dilantin level low, restarted phenytoin IV - Gen surgery consulted, Mediport placed 08/30 - Neurology consulted, apprec recs - Started on Keppra 08/31 - Zofran and reglan PRN - Continue IV methylpred - MRI no acute change Seizure disorder - Dilantin level low - Continue Fosphenytoin & Keppra - Neurology following, apprec recs - F/u with Dr Velez outpt Hip Pain - Xray with no acute fracture CAD - trop neg x1 - Continue home meds s/p Renal transplant on immunosuppresion - Continue home meds - Nephrology consulted, apprec recs HLD - Holding home meds Adrenal insufficiency 2/2 chronic steroid use - Given stress dose steroids DMII - Lantus 35U in AM, 25U HS - Mild SSI & Hypoglycemic protocol - CC diet - Accuchecks ACHS GERD - continue home meds Gout - Continue home meds Neuropathy - Continue home meds Hx of HSV encephalitis - IR guided LP recommended in future. Pt declined last hospitalization S/p Renal Transplant - Continue home meds Physical deconditioning - PT/OT - Recommended SNIF vs Rehab COPD - Continue home meds HFpEF - Continue home meds HTN - Continue home meds Hypothyroidism - Continue home meds JDUI - Continue CPAP Prostate Cancer Code status: FULL DVT ppx: Lovenox PCP: Dr Christina
[2018-09-02] MEDS: Calcium Carbonate 500 MG ChewTAB PO SCH ×2 (08:35→20:52)
[2018-09-02] MEDS: Folic Acid 1 MG TAB PO SCH (08:35)
[2018-09-02] MEDS: Tacrolimus 0.5 MG CAP PO SCH ×2 (08:35→20:53)
[2018-09-02] MEDS: Mycophenolate 250 MG CAP PO SCH ×2 (08:35→20:51)
[2018-09-02] MEDS: Calcitriol 0.25 MCG CAP PO SCH (08:36)
[2018-09-02] MEDS: Amlodipine 5 MG TAB PO SCH (08:36)
[2018-09-02] MEDS: Allopurinol 100 MG TAB PO SCH (08:36)
[2018-09-02] MEDS: Magnesium Oxide 400 MG TAB PO SCH ×2 (08:36→20:52)
[2018-09-02] MEDS: Digoxin 0.5 MG/2 ML AMP SLOW IVP SCH (08:37)
[2018-09-02] MEDS: Potassium Chloride 20 MEQ TAB PO SCH (08:37)
[2018-09-02] MEDS: Pantoprazole 40 MG VIAL IVP SCH ×2 (08:37→20:53)
[2018-09-02] MEDS: methylPREDNISolone Sod Succ 40 MG VIAL IVP SCH (08:37)
[2018-09-02] MEDS: Enoxaparin Sodium 40 MG/0.4 ML SYRINGE SC SCH (08:37)
[2018-09-02] MEDS: Docusate 100 MG CAP PO SCH ×2 (08:38→21:42)
[2018-09-02] MEDS: Insulin Glargine 20 UNITS in Pre-Filled Syringe 1 EACH SC SCH (08:42)
[2018-09-02] MEDS: Artificial Tear Sol 15 ML BOT EA EYE PRN (08:45)
[2018-09-02] MEDS ORDERED: Insulin Glargine 17 UNITS in Pre-Filled Syringe 1 EACH SC SCH (09:00)
[2018-09-02] MEDS: Bumetanide 1 MG/4 ML VIAL IVP SCH (09:06)
--- NOTE | 2018-09-02 12:50 | PRG ---
DATE OF SERVICE: 09/02/2018 Mr. Joseph is resting quietly in bed. He has had more episodes of hypoglycemia and we have greatly reduced his Lantus insulin. We are in discussions with about his placement as he is insisting on going home. Medically and clinically stable. Job ID: [id number]
--- NOTE | 2018-09-02 14:45 | PQF ---
CLINICAL DOCUMENTATION IMPROVEMENT CLARIFICATION FORM: ICD-10 Updated PLEASE DO AN ADDENDUM TO THE PROGRESS NOTE WITH ANY DOCUMENTATION UPDATES OR ADDITIONS AND CARRY THROUGH TO DC SUMMARY. THANK YOU. DATE: 09/02/2018; 09/03/2018 ATTN: Dr. Cristobal/ Attending Dr. Flores Please exercise your independent, professional judgment in responding to the clarification form. Clinical indicators are provided on the bottom of this form for your review Please check appropriate box(s): [ ] Encephalopathy: Etiology: [ ] Metabolic [ ] Toxic [ ] Drug induced: [ ] Unspecified [x] Other 2/2 seizures and adrenal insufficiency [ ] Other diagnosis [ ] Unable to determine In addition, please specify: Present on Admission (POA): [x] Yes [ ] No [ ] Unable to determine For continuity of documentation, please document condition throughout progress notes and discharge summary. Thank You. CLINICAL INDICATORS - SIGNS / SYMPTOMS / LABS 08/30(Remberto) Clinical diagnosis and history are most consistent with a seizure disorder with some breakthrough seizure due to change in medications. PN 08/31: Acute encephalopathy -Unknown etiology. Pt with decreased PO intake / n/v/d. -Dilantin level low, restarted phenytoin IV -Started on Keppra 08/31 08/31 (Mark): Cortisol level was low at 2, and he has been placed back on hydrocortisone replacement. Clinically, he has improved and his mentation has improved. RISKS: H&P 08/28: PMH of adrenal insufficiency, metastatic prostate cancer, seizure disorder, IDDMII, s/p renal transplant. TREATMENT: Order 08/29: Cortef 10mg po dc'd 08/29 Order 08/30: IV Keppra 500mg Order 08/31: IV Solu-Medrol 10mg IVP Dailly Thank you, Laly (This form is maintained as a part of the permanent medical record) 2014 [employer]. All Rights Reserved Laly Patel RN, BSN [email or web address] Office: [phone] [facility]
[2018-09-02] MEDS: Amitriptyline HCl 25 MG TAB PO SCH (20:51)
[2018-09-02] MEDS ORDERED: Insulin Glargine 10 UNITS in Pre-Filled Syringe 1 EACH SC SCH (21:00)
[2018-09-03] MEDS: Fosphenytoin Sodium 100 MG in Sodium Chloride 0.9% 50 ML IVPB SCH (03:14)
--- NOTE | 2018-09-03 06:41 | PDOC.FM ---
- Subjective Subjective: No overnight events. reports 80% improvement. Reports he slept better overnight. Continues to have weakness but she was able to assist him to the bathroom. Alert and oriented x3. - Objective MAR Reviewed: Yes Vital Signs & Weight: Vital Signs (12 hours) Temp Pulse Resp BP Pulse Ox 09/02/18 19:32 97.5 F L 63 16 132/77 94 L Weight Weight 103.4 kg I&O: 09/01/18 09/02/18 09/03/18 06:59 06:59 06:59 Intake Total 550 1520 Balance 550 1520 Result Diagrams: 08/29/18 06:17 08/29/18 06:17 Phys Exam - Physical Examination Constitutional: NAD HEENT: moist MMs Neck: supple Respiratory: no wheezing, clear to auscultation bilateral Cardiovascular: RRR, no significant murmur Gastrointestinal: soft, non-tender, positive bowel sounds Musculoskeletal: no edema Neurological: moves all 4 limbs Psychiatric: normal affect, A&O x 3 Skin: normal turgor Dx/Plan (1) Acute encephalopathy Code(s): G93.40 - ENCEPHALOPATHY, UNSPECIFIED Status: Acute (2) Seizures Code(s): R56.9 - UNSPECIFIED CONVULSIONS Status: Chronic (3) Tachycardia Code(s): R00.0 - TACHYCARDIA, UNSPECIFIED Status: Acute (4) Viral gastroenteritis Code(s): A08.4 - VIRAL INTESTINAL INFECTION, UNSPECIFIED Status: Acute (5) Adrenal insufficiency Code(s): E27.40 - UNSPECIFIED ADRENOCORTICAL INSUFFICIENCY Status: Chronic (6) CAD (coronary artery disease) Code(s): I25.10 - ATHSCL HEART DISEASE OF [place] CORONARY ARTERY W/O ANG PCTRS Status: Chronic Qualifiers: Coronary Disease-Associated Artery/Lesion type: [place] artery Associated angina: without angina (7) CKD (chronic kidney disease) stage 3, GFR 30-59 ml/min Status: Chronic (8) COPD (chronic obstructive pulmonary disease) Status: Chronic Qualifiers: COPD type: COPD with acute exacerbation Qualified Code(s): J44.1 - Chronic obstructive pulmonary disease with (acute) exacerbation (9) GERD (gastroesophageal reflux disease) Code(s): K21.9 - GASTRO-ESOPHAGEAL REFLUX DISEASE WITHOUT ESOPHAGITIS Status: Chronic (10) Hx of kidney transplant Status: Chronic (11) Hyperlipidemia Code(s): E78.5 - HYPERLIPIDEMIA, UNSPECIFIED Status: Chronic (12) Hypothyroid Code(s): E03.9 - HYPOTHYROIDISM, UNSPECIFIED Status: Chronic (13) IDDM (insulin dependent diabetes mellitus) Code(s): E11.9 - TYPE 2 DIABETES MELLITUS WITHOUT COMPLICATIONS; Z79.4 - USP (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 Acute encephalopathy - Likely 2/2 med noncompliance 2/2 due to n/v/d. - UA/CXR nml. Aferile, no leukocytosis - Gen surgery consulted, Mediport placed 08/30 - Neurology consulted, apprec recs - Started on Keppra 08/31 - Zofran and reglan PRN - Continue IV methylpred. Will discharge on Hydrocortisone 10 BID - MRI no acute change Seizure disorder - Dilantin level initially low - Continue Phenytoin & Keppra - Neurology following, apprec recs - F/u with Dr Velez outpt Hip Pain - Xray with no acute fracture CAD - trop neg x1 - Continue home meds s/p Renal transplant on immunosuppresion - Continue home meds - Nephrology consulted, apprec recs HLD - Holding home meds Adrenal insufficiency 2/2 chronic steroid use - Given stress dose steroids DMII - Lantus 35U in AM, 25U HS - Mild SSI & Hypoglycemic protocol - CC diet - Accuchecks ACHS GERD - continue home meds Gout - Continue home meds Neuropathy - Continue home meds Hx of HSV encephalitis - IR guided LP recommended in future. Pt declined last hospitalization S/p Renal Transplant - Continue home meds Physical deconditioning - PT/OT - Recommended SNIF vs Rehab COPD - Continue home meds HFpEF - Continue home meds HTN - Continue home meds Hypothyroidism - Continue home meds JUDI - Continue CPAP Prostate Cancer Code status: FULL DVT ppx: Lovenox PCP: Dr Christina
[2018-09-03] MEDS: Allopurinol 100 MG TAB PO SCH (08:26)
[2018-09-03] MEDS: Folic Acid 1 MG TAB PO SCH (08:27)
[2018-09-03] MEDS: Magnesium Oxide 400 MG TAB PO SCH (08:27)
[2018-09-03] MEDS: Amlodipine 5 MG TAB PO SCH (08:27)
[2018-09-03] MEDS: Calcitriol 0.25 MCG CAP PO SCH (08:27)
[2018-09-03] MEDS: Calcium Carbonate 500 MG ChewTAB PO SCH (08:27)
[2018-09-03] MEDS: Pantoprazole 40 MG VIAL IVP SCH (08:28)
[2018-09-03] MEDS: Mycophenolate 250 MG CAP PO SCH (08:28)
[2018-09-03] MEDS: Tacrolimus 0.5 MG CAP PO SCH (08:28)
[2018-09-03] MEDS: methylPREDNISolone Sod Succ 40 MG VIAL IVP SCH (08:28)
[2018-09-03] MEDS: Enoxaparin Sodium 40 MG/0.4 ML SYRINGE SC SCH (08:28)
[2018-09-03] MEDS: Insulin Glargine 20 UNITS in Pre-Filled Syringe 1 EACH SC SCH (08:29)
[2018-09-03] MEDS: Ondansetron ODT 4 MG TAB PO PRN (08:36)
[2018-09-03] MEDS: Artificial Tear Sol 15 ML BOT EA EYE PRN (08:45)
[2018-09-03] MEDS ORDERED: Bumetanide 1 MG TAB PO SCH (09:00)
[2018-09-03] MEDS ORDERED: Digoxin 0.125 MG TAB PO SCH (09:00)
--- NOTE | 2018-09-03 11:27 | PRG ---
DATE OF SERVICE: 09/03/2018 SUBJECTIVE: Mr. Joseph is resting quietly in bed, in no distress. He is anxious to go home. Will be discharged today. He has of course several medical issues that can and will be followed up as an outpatient. Job ID: [id number]
[2018-09-03 12:29] VITALS: BP 136/75; TEMP 97.7
--- NOTE | 2018-09-04 09:21 | EKG ---
Test Reason : AMS Blood Pressure : / mmHG Vent. Rate : 099 BPM Atrial Rate : 099 BPM P-R Int : 174 ms QRS Dur : 080 ms QT Int : 318 ms P-R-T Axes : 084 046 261 degrees QTc Int : 408 ms Normal sinus rhythm Abnormal ECG Confirmed by FRAN CARLTON ([id number]), web content editor JUDI MORA ([id number]) on 09/04/2018 9:20:42 AM Referred By: Confirmed By:FRAN CARLTON
--- NOTE | 2018-09-06 08:55 | DIS ---
DATE OF ADMISSION: 08/28/2018 DATE OF DISCHARGE: 09/03/2018 RESIDENT: Berta Cristobal MD, PGY-1. ADMITTING ATTENDING: The rest of the [facility]. DISCHARGE ATTENDING: Pal Urbano MD. CONSULTS: Neurology. PROCEDURES: 1. Brain CT; no acute intracranial findings. Lesion on the left ernie, possibly a subacute infarction. 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 Osteolytic lesions at the junction between C1 and C2. Recommend further evaluation with CT of the cervical spine. 2. 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 No acute fracture or subluxation. Multilevel spondylosis of cervical spine. 3. Fluoroscopy; no acute pulmonary findings. Ectasia of thoracic aorta. Interval placement of left subclavian implantable vascular access port without pneumothorax. 4. Hip x-ray; evidence of acute osseous abnormality. 5. Chest x-ray; uncomplicated placement of the port catheter. 6. Brain MRI; stable atrophy and mild chronic white matter ischemic change. No evidence for acute infarct. No mass, bleed or other acute process. PRIMARY DIAGNOSES: 1. Acute encephalopathy. 2. Seizure disorder. SECONDARY DIAGNOSES: 1. Hip pain. 2. Coronary artery disease. 3. Status post renal transplant, on immunosuppression. 4. Hyperlipidemia. 5. Adrenal insufficiency secondary to chronic steroid use. 6. Type 2 diabetes. 7. Gastroesophageal reflux disease. 8. Gout. 9. Neuropathy. 10. History of HSV encephalitis. 11. Status post renal transplant. 12. Physical deconditioning. 13. Chronic obstructive pulmonary disease. 14. Heart failure with preserved ejection fraction. 15. Hypertension. 16. Hypothyroidism. 17. obstructive sleep apnea. 18. Prostate cancer. DISCHARGE MEDICATIONS: 1. Zytiga 1000 mg daily. 2. Allopurinol 300 mg daily. 3. Amitriptyline 25 mg at bedtime. 4. Amlodipine 2.5 mg daily. 5. Artificial Tears 2 drops each eye q.i.d. 6. Aspirin 325 mg daily. 7. Atorvastatin 10 mg daily. 8. 0.5 to 1 mg Bumex daily. 9. Calcitriol 0.25 mcg daily. 10. Colchicine 0.6 mg b.i.d. 11. Digoxin 0.125 mg daily. 12. Folic acid 1 mg daily. 13. Gabapentin 300 mg t.i.d. 14. Glucagon 1 mg IM p.r.n. 15. Hydrocortisone 10 mg b.i.d. 16. Insulin 20 units q.a.m. 17. Metoclopramide 10 mg t.i.d. p.r.n. 18. Metoprolol succinate 100 mg b.i.d. 19. CellCept 500 mg b.i.d. 20. Mycophenolate 500 mg b.i.d. 21. Ondansetron 4 mg q.6 hours p.r.n. 22. Pantoprazole 40 mg daily. 23. Dilantin 60 mg b.i.d. 24. MiraLAX 17 g daily p.r.n. 25. Tacrolimus 0.5 mg b.i.d. 26. Ultram 50 mg at bedtime p.r.n. CONSULT: 1. Neurology. 2. General Surgery. HISTORY OF PRESENT ILLNESS/HOSPITAL COURSE: Mr. Joseph is a 68-year-old male who came in with a past medical history of adrenal insufficiency, metastatic prostate cancer, seizure disorder, and type 2 diabetes, who presented to the ED with altered mental status. He had not been taking p.o. medication for the last 2 to 3 days due to nausea and vomiting. He had acute decline in his mental status and was A and O x0. He had also been temporarily taken off phenytoin by his PCP, although it was resumed briefly prior to the nausea and vomiting. Initial labs were notable for hemoglobin 8.7, which appears to be the patient's baseline. Alkaline phosphatase 175. Ammonia 20. Troponin 0.05, 0.038. A.m. cortisol 2, which is low. Phenytoin 1.9, low. UA negative. The patient has had extensive workup for multiple admissions for altered mental status. Please refer to previous discharge summary for more details. The patient's cervical spine CT showed new metastasis. Brain CT and MRI showed no acute changes. Due to the patient's long history of difficult IV access, requiring central lines at each admission, General Surgery was consulted, and the patient was not taking medications by mouth and needed steroids due to adrenal insufficiency. Surgery was consulted, who placed a MediPort. The patient tolerated the procedure well although nursing staff was not able to use a MediPort, thus he was taken back to the OR for revision. Neurology was consulted, who felt that his symptoms may have been secondary to seizures. So in addition to the Depakote, he was started on Keppra. MRI was negative. He was given a pulse dose of steroids and discharged with hydrocortisone 10 b.i.d., replacing the 10 mg a.m. and 5 mg p.m. that he has previously been. Throughout the hospital course while on Keppra and Depakote as well as steroids, the patient showed improvement in his mental function. His felt that he was greater than 80% back to himself at discharge. PT and OT again recommended inpatient versus SNF. The patient and his declined and wishes to go home with PT and home health. They have been coming to their house twice a week. DISPOSITION: Stable. DISCHARGE INSTRUCTIONS: LOCATION: Home with home health, PT, and OT. DIET: Heart healthy, diabetic. ACTIVITY: With orthotics prosthetics assistant. FOLLOWUP: Follow up with Dr. Josephine Christina on 09/07/2018. Job ID: [id number]
== END 2018-09-03 13:33 | disposition home health service (06) | DRG 644 ==
LOC: ERS 13:20 → OBSVTOIN 20:13 → ERHOLD 20:13 → T4-A 22:33
PROVIDERS: ADMIT Family Medicine; ATTEND Family Medicine
PROC: 0JH63WZ Insertion of Totally Implantable Vascular Access Device into Chest Subcutaneous Tissue and Fascia, Percutaneous Approach (ICD-10-PCS; principal; 2018-08-29)
PROC: 02HV33Z Insertion of Infusion Device into Superior Vena Cava, Percutaneous Approach (ICD-10-PCS; 2018-08-29)
PROC: B518YZA Fluoroscopy of Superior Vena Cava using Other Contrast, Guidance (ICD-10-PCS; 2018-08-29)
PROC: 0J2TXYZ Change Other Device in Trunk Subcutaneous Tissue and Fascia, External Approach (ICD-10-PCS; 2018-08-29)
DX: E27.3 Drug-induced adrenocortical insufficiency (principal); Z94.0 Kidney transplant status; Z68.41 Body mass index [BMI] 40.0-44.9, adult; T82.514A Breakdown (mechanical) of infusion catheter, initial encounter; G93.49 Other encephalopathy; I50.30 Unspecified diastolic (congestive) heart failure; C79.51 Secondary malignant neoplasm of bone; G40.909 Epilepsy, unspecified, not intractable, without status epilepticus; Z88.0 Allergy status to penicillin; Z88.8 Allergy status to other drugs, medicaments and biological substances; Z91.040 Latex allergy status; Z91.013 Allergy to seafood; C61 Malignant neoplasm of prostate; I25.10 Atherosclerotic heart disease of native coronary artery without angina pectoris; J44.9 Chronic obstructive pulmonary disease, unspecified; K21.9 Gastro-esophageal reflux disease without esophagitis; E03.9 Hypothyroidism, unspecified; E66.01 Morbid (severe) obesity due to excess calories; G47.33 Obstructive sleep apnea (adult) (pediatric); M10.9 Gout, unspecified; T38.0X5A Adverse effect of glucocorticoids and synthetic analogues, initial encounter; Z79.82 Long term (current) use of aspirin; Z79.52 Long term (current) use of systemic steroids; Z79.4 Long term (current) use of insulin; D63.8 Anemia in other chronic diseases classified elsewhere; E78.00 Pure hypercholesterolemia, unspecified; A08.4 Viral intestinal infection, unspecified; Z85.830 Personal history of malignant neoplasm of bone; E11.40 Type 2 diabetes mellitus with diabetic neuropathy, unspecified; E11.649 Type 2 diabetes mellitus with hypoglycemia without coma; I12.9 Hypertensive chronic kidney disease with stage 1 through stage 4 chronic kidney disease, or unspecified chronic kidney disease; M25.559 Pain in unspecified hip
CPT/HCPCS: 36415; 36416; 70450; 70551; 71045; 72125; 80048; 80053; 80162; 80185; 81003; 82140; 82533; 82553; 83690; 83880; 84484; 85025; 87040; 87529; 93005; C1769; C1788; C9113; J1160; J1642; J1650; J1825; J1953; J2001; J2250; J2704; J2920; J3010; J3301; J3411; J3490; J7042; J7050; J7507; J7516; J7517; Q0162; Q2009

== ENCOUNTER 2018-09-07 14:56 | Inpatient (IN) | payer MEDICARE ==
[2018-09-07 16:18] LABS: #Basophils 0.1 thou/uL (0.0-0.2); #Eosinphils 0.2 thou/uL (0.0-0.7); #Lymphocytes 2.3 thou/uL (1.20-3.40); #Monocytes 0.8 thou/uL (0.11-0.59); #Neutrophils 3.5 thou/uL (1.40-6.50); %Basophils 0.7 % (0.0-1.0); %Eosinophils 2.9 % (0.0-10.0); %Lymphocytes 33.9 % (21.0-51.0); %Monocytes 11.1 % (0.0-10.0); %Neutrophils 51.3 % (42.0-75.0); Hemoglobin 9.3 g/dL (14.0-18.0); Mean Corpuscular HGB CONC 31.6 g/dL (32.0-36.0); Mean Corpuscular Hemoglobin 32.3 pg (27.0-31.0); Mean Platelet Volume 7.8 fL (7.4-10.4); Platelet Count 234 thou/uL (130-400); Red Blood Cell (RBC) Count 2.89 mill/uL (4.70-6.10); White Blood Cell (WBC) Count 6.9 thou/uL (4.8-10.8)
--- NOTE | 2018-09-07 16:33 | RAD ---
PORTABLE CHEST ONE VIEW: 09/07/17 at 3:48 p.m. HISTORY: Hypotension, altered mental status. FINDINGS: Comparison made with exam of 08/30/18. Left sided Port-A-Cath remains in place with tip in the projection of the cavoatrial junction. The he art size is normal. The aorta is tortuous. No focal areas of consolidation, pneumothoraces, sandra pul monary edema or pleural effusions are seen. IMPRESSION: No acute process. POS: [facility]
[2018-09-07 16:43] LABS: ALT (SGPT) 22 U/L (8-55); AST (SGOT) 21 U/L (5-34); Albumin 2.7 g/dL (3.4-4.8); Alkaline Phosphatase 174 U/L (40-150); Anion Gap 11 mmol/L (10-20); BUN (Urea Nitrogen) 13 mg/dL (8.4-25.7); Bilirubin, Total 0.5 mg/dL (0.2-1.2); Calc. Creatinine Clearance 0 mL/min (70-130); Calcium 9.2 mg/dL (7.8-10.44); Carbon Dioxide 33 mmol/L (23-31); Chloride 96 mmol/L (98-107); Estimated GFR-MDRD Greater than 90; Globulin 2.7 g/dL (2.4-3.5); Glucose 220 mg/dL (80-115); Protein, Total 5.4 g/dL (5.8-8.1); Sodium 137 mmol/L (136-145)
[2018-09-07 16:46] LABS: Potassium 2.6 mmol/L (3.5-5.1)
[2018-09-07 17:05] LABS: CKMB 0.5 ng/mL (0-6.6)
--- NOTE | 2018-09-07 18:16 | PDOC.FPRHP ---
- History of Present Illness Chief Complaint: Weakness History of Present Illness: Mr. Joseph presents directly from clinic after several hypotensive episodes and near syncope He and his report that for the last few days he has been having an increase in frequency of "sick spells" when attempting to move about/stand up. Today he presented to the office with systolic BPs in the 80s-60s, EMS was called, fluids given and place in [place] with improvement of BPs. His reports recent changes to medications, unable to verify at this point, upon chart review phenytoin was DCd approx. one month ago. No sick contacts, afebrile , denies SOB/CP/seizure like activity. ED Course: CBC, CMP, Trop, BNP, BCx, UA, UCx - Allergies/Adverse Reactions Allergies Allergy/AdvReac Type Severity Reaction Status Date / Time Latex, Natural Rubber Allergy Verified 07/14/18 18:42 morphine Allergy Verified 07/14/18 18:42 NSAIDS (Non-Steroidal Allergy Verified 07/14/18 18:42 Anti-Inflamma Penicillins Allergy Severe Verified 07/14/18 18:42 Hives povidone-iodine Allergy Rash Verified 07/14/18 18:42 [From Betadine] shellfish derived Allergy Verified 07/14/18 18:42 Tetracyclines Allergy Verified 07/14/18 18:42 lisinopril AdvReac Mild COUGHING Verified 07/14/18 18:42 - Home Medications Medication Instructions Recorded Confirmed Type Aspirin [Aspirin EC] 325 mg PO DAILY 02/18/15 09/07/18 History Calcitriol 0.25 mcg PO DAILY 02/18/15 09/07/18 History Gabapentin 300 tab PO QAM 10/14/16 09/07/18 History Ondansetron [Zofran ODT] 4 mg PO Q6H PRN #30 tab 08/09/18 09/07/18 Rx traMADol HCl [Ultram] 50 mg PO Q6H PRN tab 08/09/18 09/07/18 Rx Metoclopramide HCl [Reglan] 10 mg PO TID PRN #90 tab 08/10/18 09/07/18 Rx Hydrocortisone [Cortef] 10 mg PO QAM 30 Days #30 tab 08/11/18 09/07/18 Rx Abiraterone Acetate [Zytiga] 1,000 mg PO DAILY #120 tablet 09/03/18 09/07/18 Rx Amitriptyline HCl [Elavil] 25 mg PO HS #75 tab 09/03/18 09/07/18 Rx Artificial Tear Mary 15ml Bot 2 drop EA EYE QID PRN #1 bot 09/03/18 09/07/18 Rx [Tears Renewed] Atorvastatin Calcium [Lipitor] 10 mg PO DAILY #30 tab 09/03/18 09/07/18 Rx Bumetanide [Bumex] 1 mg PO DAILY tab 09/03/18 09/07/18 Rx Colchicine [Colcrys] 0.6 mg PO BID PRN #60 tab 09/03/18 09/07/18 Rx Digoxin [Lanoxin] 0.125 mg PO DAILY #30 tab 09/03/18 09/07/18 Rx Folic Acid [Folvite] 1 mg PO DAILY #30 tab 09/03/18 09/07/18 Rx Glucagon 1 mg IM PRN PRN #1 vial 09/03/18 09/07/18 Rx Hydrocortisone 10 mg PO HS #30 tab 09/03/18 09/07/18 Rx Insulin Glargine [Lantus Vial] 20 units SC QAM vial 09/03/18 09/07/18 Rx Mycophenolate [Cellcept] 500 mg PO BID #120 cap 09/03/18 09/07/18 Rx Pantoprazole [Protonix] 40 mg PO DAILY #30 tab 09/03/18 09/07/18 Rx Polyethylene Glycol 3350 [Miralax] 17 gm PO DAILY PRN #1 bot 09/03/18 09/07/18 Rx Tacrolimus 1 mg PO BID #60 capsule 09/03/18 09/07/18 Rx Tacrolimus [Prograf] 1 mg PO BID cap 09/03/18 09/07/18 Rx amLODIPine Besylate [Norvasc] 2.5 mg PO DAILY #30 tablet 09/03/18 09/07/18 Rx Allopurinol 300 mg PO DAILY 09/07/18 09/07/18 History Metoprolol Succinate [Toprol XL] 100 tab PO BID 09/07/18 09/07/18 History Phenytoin [Dilantin Suspension] 100 mg PO BID 09/07/18 09/07/18 History - History PMHx: seizure disorder, metastatic prostate CA, COPD, HFpEF, HTN, HLD, JUDI, adrenal insufficiency, s/p renal transplant on chronic IS therapy, neuropathy, IDDMII, gout PSHx: kidney transplant, hernia x3, cholecystectomy FHx:CAD DMII Social: No TAD - Review of Systems General: reports: weight/appetite/sleep changes, fatigue. denies: fever/chills Eyes: denies: eye pain, vision changes Respiratory: denies: cough, congestion, shortness of breath Cardiovascular: reports: edema. denies: chest pain, palpitation Gastrointestinal: reports: nausea, vomiting. denies: diarrhea, constipation, abdominal pain Genitourinary: reports: incontinence. denies: dysuria, polyuria, discharge Skin: denies: rashes, lesions Musculoskeletal: denies: pain, tenderness Neurological: reports: weakness. denies: numbness, syncope, seizure - Vital signs BP: 116/63 HR: 87 RR: 16 Tmax: 98 Pox: 97% on RA Wt: 108.9kg - Physical Exam Constitutional: NAD, awake, alert and oriented HEENT: normocephalic and atraumatic, grossly normal vision, grossly normal hearing, other (dry MM) Neck: supple, trachea midline Chest: no-tender to palpation, no lesions Heart: RRR, normal S1/S2, no murmurs/rubs/gallops, pulses present, other (mild pitting edema in LE) Lungs: CTAB, no respiratory distress, good air movement Abdomen: soft, non-tender, no masses/distention Musculoskeletal: normal structure, normal tone Neurological: no focal deficit, CN II-XII intact Skin: no rash/lesions, good turgor Heme/Lymphatic: no unusual bruising or bleeding, no purpura Psychiatric: normal mood and affect FMR H&P: Results - Labs Result Diagrams: 09/07/18 15:52 09/07/18 15:52 Lab results: WBC 6.9 thou/uL (4.8-10.8) 09/07/18 15:52 Hgb 9.3 g/dL (14.0-18.0) L 09/07/18 15:52 Hct 29.5 % (42.0-52.0) L 09/07/18 15:52 MCV 102.0 fL (78.0-98.0) H 09/07/18 15:52 Plt Count 234 thou/uL (130-400) 09/07/18 15:52 Neutrophils % 51.3 % (42.0-75.0) 09/07/18 15:52 Sodium 137 mmol/L (136-145) 09/07/18 15:52 Potassium 2.6 mmol/L (3.5-5.1) L* 09/07/18 15:52 Chloride 96 mmol/L (98-107) L 09/07/18 15:52 Carbon Dioxide 33 mmol/L (23-31) H 09/07/18 15:52 BUN 13 mg/dL (8.4-25.7) 09/07/18 15:52 Creatinine 0.87 mg/dL (0.7-1.3) 09/07/18 15:52 Glucose 220 mg/dL (80-115) H 09/07/18 15:52 Calcium 9.2 mg/dL (7.8-10.44) 09/07/18 15:52 Total Bilirubin 0.5 mg/dL (0.2-1.2) 09/07/18 15:52 AST 21 U/L (5-34) 09/07/18 15:52 ALT 22 U/L (8-55) 09/07/18 15:52 Alkaline Phosphatase 174 U/L (40-150) H 09/07/18 15:52 CK-MB (CK-2) 0.5 ng/mL (0-6.6) 09/07/18 15:52 B-Natriuretic Peptide 71.3 pg/mL (0-100) 09/07/18 15:52 Serum Total Protein 5.4 g/dL (5.8-8.1) L 09/07/18 15:52 Albumin 2.7 g/dL (3.4-4.8) L 09/07/18 15:52 FMR H&P: A/P - Problem List (1) Adrenal insufficiency Current Visit: No Status: Chronic Code(s): E27.40 - UNSPECIFIED ADRENOCORTICAL INSUFFICIENCY (2) CAD (coronary artery disease) Current Visit: No Status: Chronic Code(s): I25.10 - ATHSCL HEART DISEASE OF [place] CORONARY ARTERY W/O ANG PCTRS Qualifiers: Coronary Disease-Associated Artery/Lesion type: [place] artery Associated angina: without angina (3) CKD (chronic kidney disease) stage 3, GFR 30-59 ml/min Current Visit: No Status: Chronic (4) COPD (chronic obstructive pulmonary disease) Current Visit: No Status: Chronic Qualifiers: COPD type: COPD with acute exacerbation Qualified Code(s): J44.1 - Chronic obstructive pulmonary disease with (acute) exacerbation (5) GERD (gastroesophageal reflux disease) Current Visit: No Status: Chronic Code(s): K21.9 - GASTRO-ESOPHAGEAL REFLUX DISEASE WITHOUT ESOPHAGITIS (6) Hx of kidney transplant Current Visit: No Status: Chronic (7) Hyperlipidemia Current Visit: No Status: Chronic Code(s): E78.5 - HYPERLIPIDEMIA, UNSPECIFIED (8) Hypothyroid Current Visit: No Status: Chronic Code(s): E03.9 - HYPOTHYROIDISM, UNSPECIFIED (9) IDDM (insulin dependent diabetes mellitus) Current Visit: No Status: Chronic Code(s): E11.9 - TYPE 2 DIABETES MELLITUS WITHOUT COMPLICATIONS; Z79.4 - LONG-TERM (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 OF INSULIN (10) Normocytic anemia Current Visit: No Status: Chronic Code(s): D64.9 - ANEMIA, UNSPECIFIED (11) Prostate cancer Current Visit: No Status: Chronic Code(s): C61 - MALIGNANT NEOPLASM OF PROSTATE (12) Seizures Current Visit: No Status: Chronic Code(s): R56.9 - UNSPECIFIED CONVULSIONS - Plan Hypotension - hypovolemia vs infection vs adrenal insuffiency - BPs improved with fluids and positioning, afebrile, no WBC elevation, concern for sepsis low - procal, UCx, BCx pending - give 50mg solucortef q6hrx4, then resume home dose steroids - LR 200ml/hr +40KCl x1L - continue IVF - monitor vitals, strict IOs Seizure disorder - Dilantin level pending - Continue Phenytoin & Keppra CAD - tropx1 near baseline, most likely demand - continue to trend s/p Renal transplant - Continue home meds HLD - continue home meds Adrenal insufficiency 2/2 chronic steroid use - continue home steroid dosing - stress dose as above DMII - Lantus 35U in AM, 25U HS - Moderate SSI & Hypoglycemic protocol - CC diet - Accuchecks ACHS GERD - continue home meds Gout - Continue home meds Neuropathy - Continue home meds Hx of HSV encephalitis - aware S/p Renal Transplant - Continue home meds Physical deconditioning - PT/OT - Recommended SNIF vs Rehab COPD - Continue home meds HFpEF - Continue home meds - echo w/in past year, EF 60-65% HTN - hold home meds Hypothyroidism - Continue home meds JUDI - Continue CPAP Prostate Cancer Code status: FULL DVT ppx: Lovenox PCP: Dr Christina Dispo: admit to telemetry for monitoring, further workup and IVF resuscitation FMR H&P: Upper Level - Pertinent history 68M with PMH of hypothyroidism, metastatic prostate cancer, and adrenal insufficiency presents for evaluation of hypotension. He was seen by PCP in clinic where he was noted to be hypotensive. His SBP was in 60's. He was not confused, febrile, sob or having chest pain at the time. He reported feeling weak and tire since his hospital discharge 4 days prior. No acute worsening since then. EMS transported him to ER where it was reported that "EMS gave him fluid", but there was no record of how much was given. In ER he received 40 mEq KCl due to hypokalemia of 2.6. Trops were indeterminate but lower then previous visit. CXR was found no acute abnormalities. EKG shows an irregularly irregular rhythm but no ST changes. WBC was not elevated. In ER, his BP was 128/55. Vitals: BP 128/55, Resp 1 6, Temp 98, Pulse 88, O2 97% on RA Gen: Well developed, but fatigue appearing HEENT: Vision and hearing grossly intact, moist mucosal membrane, normocephalic CV: RRR with no apparent m/g/r. There is mediport on at left chest wall. Resp: CTA bilat GI: Normoactive, soft, not tender Ext: Lower ext appear to have venous stasis dermatologic changes. 1+ pitting edema. Neurological: Alert and oriented, logical speech. No focal deficit. 1.Symptomatic hypotension - Consider hypovolemia, adrenal insufficiency, infection, - At this time, BP appropriate, but consider LR fluid bolus as needed. Orthostatic vitals. - Measure cortisol levels. Home dose of cortisol is 20 daily, so will give one time of 40-60 cortisol - Patient is immunocompromise due to steroid use/renal transplant, so will obtain blood culture, urine culture/UA. - Will review medications. Hold BP meds for now. 2. Adrenal Insufficiency: - Known issue. Will continue steroid, obtain cortisol level, both random and morning. 3. Hypothyrodism - No apparent levothyroxine. Will reconcile clinic record. Last TSH was 3, one month prior so unlikely to be part of hypotension 4. Hypokalemia - Will replace, repeat electrolyte tomorrow. 5. JUDI - CPAP Please see regulatory intern note for patient's other chronic issues. - Plan Date/Time: 09/07/18 181 I, [Blanco Edgar], have evaluated this patient and agree with findings/plan as outlined by regulatory intern resident. Pertinent changes/additions are listed here. Addendum - Attending - Attending Attestation Date/Time: 09/08/18 0803 I personally evaluated the patient and discussed the management with Dr. Peralta and Tala. I agree with and repeated the History, Examination, Assessment and Plan documented above with any addition or exceptions noted below. Patient doing well, no complaints on my evaluation and a nonfocal exam. Will stress dose and monitor.
[2018-09-07] MEDS ORDERED: Potassium Chloride 20 MEQ TAB ONE (18:33)
[2018-09-07 19:46] LABS: Troponin I 0.052 ng/mL (< 0.028)
[2018-09-07] MEDS ORDERED: Potassium Chloride 40 MEQ in Lactated Ringer's 1,000 ML IV SCH (20:13)
[2018-09-07] MEDS ORDERED: Dextrose 5% in Water 1,000 ML IV PRN (20:13)
[2018-09-07] MEDS ORDERED: HumaLOG 300 UNITS/3 ML VIAL SC PRN (20:13)
[2018-09-07] MEDS ORDERED: Dextrose 50% Abboject 50 ML SYRINGE SLOW IVP PRN (20:13)
[2018-09-07 22:19] LABS: Troponin I 0.046 ng/mL (< 0.028)
[2018-09-07] MEDS: Hydrocortisone Sod Succ/PF 50 MG in Sodium Chloride 0.9% 50 ML IVPB SCH (23:52)
[2018-09-08] MEDS: Hydrocortisone Sod Succ/PF 50 MG in Sodium Chloride 0.9% 50 ML IVPB SCH ×3 (05:24→18:06)
--- NOTE | 2018-09-08 06:10 | PDOC.FM ---
- Subjective Subjective: 68 yo male seen at bedside this AM. Patient states he feels better than yesterday. Patient denies pain, fevers, n/v/d. His daughter is in the room and has multiple questions regarding her father's health. She states that she is concerned on the frequency of her father's hospitalizations. She is concerned that he is never fully recovered. She and her mother would like to see him go to a place where he can get better care and better coverage. No other complaints this morning. - Objective Vital Signs & Weight: Vital Signs (12 hours) Temp Pulse Resp BP Pulse Ox 09/08/18 04:17 98.9 F 101 H 20 135/72 98 09/07/18 22:38 92 L 09/07/18 22:34 98.2 F 99 18 121/62 92 L Weight Weight 94.483 kg Result Diagrams: 09/08/18 11:35 09/08/18 11:35 Phys Exam - Physical Examination Constitutional: NAD HEENT: moist MMs Respiratory: no wheezing, clear to auscultation bilateral Cardiovascular: RRR, no significant murmur Gastrointestinal: soft, non-tender, no distention, positive bowel sounds Musculoskeletal: pulses present, edema present mild LE edema present Neurological: moves all 4 limbs Psychiatric: A&O x 3 Skin: no rash Dx/Plan (1) Hypotension Status: Resolved (2) Adrenal insufficiency Code(s): E27.40 - UNSPECIFIED ADRENOCORTICAL INSUFFICIENCY Status: Chronic (3) Hypokalemia Code(s): E87.6 - HYPOKALEMIA Status: Acute (4) CAD (coronary artery disease) Code(s): I25.10 - ATHSCL HEART DISEASE OF [place] CORONARY ARTERY W/O ANG PCTRS Status: Chronic Qualifiers: Coronary Disease-Associated Artery/Lesion type: [place] artery Associated angina: without angina (5) Hx of kidney transplant Status: Chronic (6) IDDM (insulin dependent diabetes mellitus) Code(s): E11.9 - TYPE 2 DIABETES MELLITUS WITHOUT COMPLICATIONS; Z79.4 - TRANSPORTATION ESCORT (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 OF INSULIN Status: Chronic (7) Seizures Code(s): R56.9 - UNSPECIFIED CONVULSIONS Status: Chronic (8) COPD (chronic obstructive pulmonary disease) Status: Chronic Qualifiers: COPD type: COPD with acute exacerbation Qualified Code(s): J44.1 - Chronic obstructive pulmonary disease with (acute) exacerbation (9) GERD (gastroesophageal reflux disease) Code(s): K21.9 - GASTRO-ESOPHAGEAL REFLUX DISEASE WITHOUT ESOPHAGITIS Status: Chronic (10) Prostate cancer Code(s): C61 - MALIGNANT NEOPLASM OF PROSTATE Status: Chronic - Plan Plan: Hypotension - hypovolemia vs infection vs adrenal insuffiency - BPs overnight WNL - procal negative - UCx, BCx pending - Solucortef q6hrx4, then resume home dose steroids - monitor vitals, strict IOs Adrenal insufficiency 2/2 chronic steroid use - continue home steroid dosing - stress dose as above - Cortisol level 1.50 Hypokalemia - 2.6 on Admission - Repeat pending this AM - Continue to replete Seizure disorder - Dilantin level 2.7 (low) - Continue Phenytoin & Keppra CAD - tropx1 near baseline, most likely demand - Downtrended s/p Renal transplant - Continue home meds DMII - Lantus 35U in AM, 25U HS - Moderate SSI & Hypoglycemic protocol - CC diet - Accuchecks ACHS Hx of HSV encephalitis - aware S/p Renal Transplant - Continue home meds Prostate Cancer - History of Mets - Recommend continue outpatient follow up. Chronic conditions - Continue home medications Disposition: Stable, will continue current plan of care Addendum - Attending - Attending Attestation Date/Time: 09/08/18 5378 I personally evaluated the patient and discussed the management with Dr. Rea at 0830 am. I agree with the History, Examination, Assessment and Plan documented above with any addition or exceptions noted below. Hypotension- resolved with IVF and stress dose steroids. Adrenal insufficiency- stress dose steroids today and then transition to oral tomorrow. Will change to hydrocortisone 10 mg po qam, 5 mg po noon and 5 mg po q5 pm. Metastatic prostate cancer CKD stage III s/p renal transplant-stable cr. T2DM secondary to steroid use- elevated blood sugar. Hypokalemia- replace Deconditioning- patient has had multiple readmissions over the past few months. We are attempting SNF placement.
[2018-09-08] MEDS ORDERED: Metoclopramide HCl 10 MG TAB PO PRN (06:14)
[2018-09-08] MEDS ORDERED: Polyethylene Glycol 3350 17 GM Packet PO PRN (06:14)
[2018-09-08] MEDS ORDERED: Colchicine 0.6 MG TAB PO PRN (06:14)
[2018-09-08] MEDS ORDERED: Artificial Tear Sol 15 ML BOT EA EYE PRN (06:14)
[2018-09-08] MEDS ORDERED: Tacrolimus 0.5 MG CAP PO SCH (09:00)
[2018-09-08] MEDS ORDERED: ABIRATERONE ACETATE 1000 MG PO SCH (09:00)
[2018-09-08] MEDS ORDERED: GABAPENTIN PO SCH (09:00)
[2018-09-08] MEDS ORDERED: Abiraterone Acetate [Zytiga] 1,000 MG PO SCH (09:00)
[2018-09-08] MEDS: Enoxaparin Sodium 40 MG/0.4 ML SYRINGE SC SCH (09:07)
[2018-09-08] MEDS: Mycophenolate 250 MG CAP PO SCH ×2 (09:08→21:28)
[2018-09-08] MEDS: Atorvastatin Calcium 10 MG TAB PO SCH (09:08)
[2018-09-08] MEDS: Allopurinol 100 MG TAB PO SCH (09:08)
[2018-09-08] MEDS: Digoxin 0.125 MG TAB PO SCH (09:08)
[2018-09-08] MEDS: Calcitriol 0.25 MCG CAP PO SCH (09:08)
[2018-09-08] MEDS: Folic Acid 1 MG TAB PO SCH (09:08)
[2018-09-08] MEDS: Bumetanide 1 MG TAB PO SCH (09:09)
[2018-09-08] MEDS: Gabapentin 300 MG CAP PO SCH (09:09)
[2018-09-08] MEDS: Ondansetron ODT 4 MG TAB PO PRN (09:17)
[2018-09-08] MEDS: Tacrolimus 0.5 MG CAP PO SCH ×2 (10:41→21:28)
[2018-09-08] MEDS: HumaLOG 300 UNITS/3 ML VIAL SC PRN ×2 (11:23→17:16)
[2018-09-08 11:46] LABS: #Basophils 0.1 thou/uL (0.0-0.2); #Lymphocytes 1.7 thou/uL (1.20-3.40); #Monocytes 0.2 thou/uL (0.11-0.59); %Basophils 0.8 % (0.0-1.0); %Eosinophils 0.7 % (0.0-10.0); %Lymphocytes 23.9 % (21.0-51.0); %Neutrophils 71.7 % (42.0-75.0); Hemoglobin 8.5 g/dL (14.0-18.0); Mean Corpuscular HGB CONC 31.7 g/dL (32.0-36.0); Mean Corpuscular Hemoglobin 32.7 pg (27.0-31.0); Mean Platelet Volume 7.6 fL (7.4-10.4); Platelet Count 204 thou/uL (130-400); RBC Distribution Width 18.5 % (11.5-14.5); Red Blood Cell (RBC) Count 2.61 mill/uL (4.70-6.10)
[2018-09-08 12:16] LABS: ALT (SGPT) 21 U/L (8-55); AST (SGOT) 19 U/L (5-34); Albumin 2.6 g/dL (3.4-4.8); Alkaline Phosphatase 168 U/L (40-150); Anion Gap 15 mmol/L (10-20); BUN (Urea Nitrogen) 14 mg/dL (8.4-25.7); Bilirubin, Total 0.5 mg/dL (0.2-1.2); Calc. Creatinine Clearance 97 mL/min (70-130); Calcium 8.4 mg/dL (7.8-10.44); Carbon Dioxide 27 mmol/L (23-31); Chloride 94 mmol/L (98-107); Estimated GFR-MDRD Greater than 90; Globulin 2.7 g/dL (2.4-3.5); Glucose 336 mg/dL (80-115); Potassium 3.1 mmol/L (3.5-5.1); Protein, Total 5.3 g/dL (5.8-8.1); Sodium 133 mmol/L (136-145)
[2018-09-08] MEDS ORDERED: Potassium Chloride 40 MEQ in Premix Bag 1 BAG IVPB SCH (13:15)
[2018-09-08] MEDS: Hydrocortisone 10 mg Tablet PO SCH (13:38)
[2018-09-08] MEDS: Amitriptyline HCl 25 MG TAB PO SCH (21:28)
--- NOTE | 2018-09-09 06:07 | PDOC.FM ---
- Subjective Subjective: Pleasant 68 yo male seen at bedside this AM. Patient's is at bedside as well. Patient had no acute events overnight. He states he feels well and his BP has remained WNL. Patient is agreeable to SNF placement for a short time to regain his strength to go home. Patient and his are agreeable to plan. No other complaints. - Objective Vital Signs & Weight: Vital Signs (12 hours) Temp Pulse Resp BP Pulse Ox 09/09/18 04:20 97.5 F L 71 20 139/65 94 L 09/08/18 23:20 74 131/67 09/08/18 20:05 97.9 F 81 16 128/64 94 L Weight Weight 94.483 kg Result Diagrams: 09/08/18 11:35 09/09/18 09:16 Phys Exam - Physical Examination Constitutional: NAD HEENT: moist MMs Respiratory: no wheezing, clear to auscultation bilateral Cardiovascular: RRR, no significant murmur Gastrointestinal: soft, non-tender, no distention, positive bowel sounds Musculoskeletal: edema present Mild edema to bilateral lower extremities Neurological: non-focal, moves all 4 limbs Psychiatric: A&O x 3 Skin: no rash Dx/Plan (1) Hypotension Status: Resolved (2) Adrenal insufficiency Code(s): E27.40 - UNSPECIFIED ADRENOCORTICAL INSUFFICIENCY Status: Chronic (3) Hypokalemia Code(s): E87.6 - HYPOKALEMIA Status: Acute (4) CAD (coronary artery disease) Code(s): I25.10 - ATHSCL HEART DISEASE OF [place] CORONARY ARTERY W/O ANG PCTRS Status: Chronic Qualifiers: Coronary Disease-Associated Artery/Lesion type: [place] artery Associated angina: without angina (5) Hx of kidney transplant Status: Chronic (6) IDDM (insulin dependent diabetes mellitus) Code(s): E11.9 - TYPE 2 DIABETES MELLITUS WITHOUT COMPLICATIONS; Z79.4 - [place]ENT[place] (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 OF INSULIN Status: Chronic (7) Seizures Code(s): R56.9 - UNSPECIFIED CONVULSIONS Status: Chronic (8) COPD (chronic obstructive pulmonary disease) Status: Chronic Qualifiers: COPD type: COPD with acute exacerbation Qualified Code(s): J44.1 - Chronic obstructive pulmonary disease with (acute) exacerbation (9) GERD (gastroesophageal reflux disease) Code(s): K21.9 - GASTRO-ESOPHAGEAL REFLUX DISEASE WITHOUT ESOPHAGITIS Status: Chronic (10) Prostate cancer Code(s): C61 - MALIGNANT NEOPLASM OF PROSTATE Status: Chronic - Plan Plan: Hypotension, resolved - hypovolemia vs infection vs adrenal insuffiency - BPs overnight WNL - procal negative - UCx, BCx no growth to date - Solucortef q6hrx4 completed - Resumed home oral steroid dosing at 10 mg, 5 mg and 5 mg interval - monitor vitals, strict IOs Adrenal insufficiency 2/2 chronic steroid use - continue home steroid dosing - stress dose as above - Cortisol level 1.50 Hypokalemia - 2.6 on Admission - Repeat pending this AM - Continue to replete Seizure disorder - Dilantin level 2.7 (low) - Continue Phenytoin & Keppra - Recommend recheck as outpatient CAD - tropx1 near baseline, most likely demand - Downtrended s/p Renal transplant - Continue home meds DMII - Lantus 35U in AM, 25U HS - Moderate SSI & Hypoglycemic protocol - Changed to regular diet to promote nutrition. - Accuchecks ACHS Hx of HSV encephalitis - aware S/p Renal Transplant - Continue home meds Prostate Cancer - History of Mets - Recommend continue outpatient follow up. Chronic conditions - Continue home medications Disposition: Stable, will continue current plan of care. Patient is agreeable to placement. Awaiting CM recommendations. Addendum - Attending - Attending Attestation Date/Time: 09/09/18 6046 I personally evaluated the patient and discussed the management with Dr. Rea I agree with the History, Examination, Assessment and Plan documented above with any addition or exceptions noted below. Hypotension- resolved Dehydration- resolved Adrenal insufficiency-transitioned to po hydrocortisone today. T2DM- restart home long-acting insulin Metastatic prostate cancer Hypokalemia- replace Recurrent hospitalizations and deconditioning- patient needs rehab/SNF placement to prevent repeat admission and to have consisten with PT/OT.
[2018-09-09] MEDS: Calcitriol 0.25 MCG CAP PO SCH (09:32)
[2018-09-09] MEDS: Hydrocortisone 10 mg Tablet PO SCH ×3 (09:32→17:08)
[2018-09-09] MEDS: Allopurinol 100 MG TAB PO SCH (09:32)
[2018-09-09] MEDS: Bumetanide 1 MG TAB PO SCH (09:32)
[2018-09-09] MEDS: Folic Acid 1 MG TAB PO SCH (09:33)
[2018-09-09] MEDS: Atorvastatin Calcium 10 MG TAB PO SCH (09:33)
[2018-09-09] MEDS: Digoxin 0.125 MG TAB PO SCH (09:34)
[2018-09-09] MEDS: Enoxaparin Sodium 40 MG/0.4 ML SYRINGE SC SCH (09:34)
[2018-09-09] MEDS: HumaLOG 300 UNITS/3 ML VIAL SC PRN ×2 (09:36→11:36)
[2018-09-09] MEDS: Gabapentin 300 MG CAP PO SCH (09:49)
[2018-09-09 10:04] LABS: ALT (SGPT) 21 U/L (8-55); AST (SGOT) 17 U/L (5-34); Albumin 2.4 g/dL (3.4-4.8); Alkaline Phosphatase 140 U/L (40-150); Anion Gap 11 mmol/L (10-20); BUN (Urea Nitrogen) 16 mg/dL (8.4-25.7); Bilirubin, Total 0.4 mg/dL (0.2-1.2); Calc. Creatinine Clearance 89 mL/min (70-130); Carbon Dioxide 30 mmol/L (23-31); Chloride 97 mmol/L (98-107); Estimated GFR-MDRD 87; Globulin 2.5 g/dL (2.4-3.5); Glucose 225 mg/dL (80-115); Protein, Total 4.9 g/dL (5.8-8.1); Sodium 135 mmol/L (136-145)
[2018-09-09] MEDS ORDERED: Potassium Chloride 40 MEQ in Premix Bag 1 BAG IVPB SCH (10:15)
[2018-09-09] MEDS: Tacrolimus 0.5 MG CAP PO SCH ×2 (10:37→20:44)
[2018-09-09] MEDS: Mycophenolate 250 MG CAP PO SCH ×2 (10:38→20:44)
[2018-09-09] MEDS: Potassium Chloride 20 MEQ in Premix Bag 1 BAG IVPB SCH ×2 (11:22→14:03)
[2018-09-09] MEDS: Ondansetron ODT 4 MG TAB PO PRN (11:44)
[2018-09-09] MEDS ORDERED: Aspirin Chewable 81 MG TAB ONE (12:43)
--- NOTE | 2018-09-09 12:56 | PDOC.EVN ---
Event Note - Event Note Event Note: Resident was called to patient room for complaint of Chest Pain. Patient was resting comfortably in bed. He does state pain is in middle of chest and does not radiate. He states the pain is a 9/10. He initially thought it was indigestion, but it did not resolve. He denies diaphoresis, lightheadedness, or SOB. He does complain of intermittent nausea. Patient will undergo EKG, troponin , and be given ASA. His vitals are WNL however his systolic BP is 110 and so will hold on nitro paste currently. Will await results of troponin and make appropriate treatment changes from there. Contacted Dr. Christina, attending physician, who is in agreement with plan.
[2018-09-09] MEDS ORDERED: Aspirin Chewable 81 MG TAB PO SCH (13:00)
[2018-09-09] MEDS ORDERED: Sodium Chloride 0.9% 1,000 ML IV SCH (13:30)
[2018-09-09 13:49] LABS: CKMB 0.7 ng/mL (0-6.6)
[2018-09-09] MEDS ORDERED: Lidocaine 2% Viscous Solution 20 ML, Aluminum & Magnesium Hydroxide 30 ML, Donnatal Eli... SSW SCH (14:00)
[2018-09-09] MEDS: traMADol HCl 50 MG TAB PO PRN (17:01)
[2018-09-09] MEDS: Amitriptyline HCl 25 MG TAB PO SCH (20:44)
[2018-09-09] MEDS: Insulin Glargine 20 UNITS in Pre-Filled Syringe 1 EACH SC SCH (20:47)
--- NOTE | 2018-09-10 06:16 | PDOC.FM ---
- Subjective Subjective: Pleasant 68 yo male seen at bedside this AM. Patient is very anxious and fearful to go home with his "pains in his chest." Patient's wonders if the steroids are causing some of these problems such as mucous like BMs and the pain. Patient did not have any nausea until he resumed his home oral steroid dosing. Patient otherwise had a good night. No other complaints. - Objective Vital Signs & Weight: Vital Signs (12 hours) Temp Pulse Resp BP Pulse Ox 09/10/18 03:44 97.6 F 82 20 135/62 94 L 09/10/18 01:04 97.9 F 83 20 121/67 93 L 09/09/18 20:00 94 L 09/09/18 19:12 97.9 F 78 20 132/71 94 L Weight Weight 97.069 kg I&O: 09/08/18 09/09/18 09/10/18 06:59 06:59 06:59 Intake Total 350 1720 Output Total 250 600 Balance 100 1120 Result Diagrams: 09/08/18 11:35 09/10/18 06:45 Phys Exam - Physical Examination Constitutional: NAD HEENT: moist MMs Neck: no nodes Respiratory: no wheezing, clear to auscultation bilateral Cardiovascular: RRR, no significant murmur Gastrointestinal: soft, non-tender, no distention, positive bowel sounds Musculoskeletal: pulses present Mild bilateral lower extremity edema Neurological: non-focal, moves all 4 limbs Psychiatric: A&O x 3 Skin: no rash Dx/Plan (1) Hypotension Status: Resolved (2) Adrenal insufficiency Code(s): E27.40 - UNSPECIFIED ADRENOCORTICAL INSUFFICIENCY Status: Chronic (3) Hypokalemia Code(s): E87.6 - HYPOKALEMIA Status: Acute (4) CAD (coronary artery disease) Code(s): I25.10 - ATHSCL HEART DISEASE OF [place] CORONARY ARTERY W/O ANG PCTRS Status: Chronic Qualifiers: Coronary Disease-Associated Artery/Lesion type: [place] artery Associated angina: without angina (5) Hx of kidney transplant Status: Chronic (6) IDDM (insulin dependent diabetes mellitus) Code(s): E11.9 - TYPE 2 DIABETES MELLITUS WITHOUT COMPLICATIONS; Z79.4 - GROUP HOME (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 OF INSULIN Status: Chronic (7) Seizures Code(s): R56.9 - UNSPECIFIED CONVULSIONS Status: Chronic (8) COPD (chronic obstructive pulmonary disease) Status: Chronic Qualifiers: COPD type: COPD with acute exacerbation Qualified Code(s): J44.1 - Chronic obstructive pulmonary disease with (acute) exacerbation (9) GERD (gastroesophageal reflux disease) Code(s): K21.9 - GASTRO-ESOPHAGEAL REFLUX DISEASE WITHOUT ESOPHAGITIS Status: Chronic (10) Prostate cancer Code(s): C61 - MALIGNANT NEOPLASM OF PROSTATE Status: Chronic - Plan Plan: Hypotension, resolved - hypovolemia vs infection vs adrenal insuffiency - BPs overnight WNL - procal negative - UCx, BCx no growth to date - Solucortef q6hrx4 completed - Resumed home oral steroid dosing at 10 mg, 5 mg and 5 mg interval - monitor vitals, strict IOs Adrenal insufficiency 2/2 chronic steroid use - continue home steroid dosing - stress dose completed as above - Cortisol level 1.50 - Patient has had n/v and pain after steroid ingestion - Consulted GI, Dr. Stringer, appreciate recommendations - Will evaluate for steroid induced esophagitis. Hypokalemia - 2.6 on Admission - Repeat pending this AM - Continue to replete Seizure disorder - Dilantin level 2.7 (low) - Continue Phenytoin - Recommend recheck as outpatient CAD - tropx1 near baseline, most likely demand - Downtrended - Episode of chest pain with nausea 09/09. No EKG changes, negative troponin unclear etiology, but deemed non-cardiac s/p Renal transplant - Continue home meds DMII - Lantus 20u HS - Moderate SSI & Hypoglycemic protocol - Changed to regular diet to promote nutrition. - Accuchecks ACHS Hx of HSV encephalitis - aware S/p Renal Transplant - Continue home meds Prostate Cancer - History of Mets - Recommend continue outpatient follow up. Chronic conditions - Continue home medications Disposition: Stable, will continue current plan of care. Will await GI consultation and EGD findings. Patient is agreeable to placement. Awaiting CM recommendations. Addendum - Attending - Attending Attestation Date/Time: 09/10/18 0548 I personally evaluated the patient and discussed the management with Dr. Rea I agree with the History, Examination, Assessment and Plan documented above with any addition or exceptions noted below. Possible steroid pill esophagitis- GI evaluation. Adrenal insufficiency- change steroids back to IV Metastatic prostate cancer Deconditions and multiple readmissions- SNF/rehab placement
[2018-09-10 07:26] LABS: ALT (SGPT) 22 U/L (8-55); AST (SGOT) 25 U/L (5-34); Albumin 2.5 g/dL (3.4-4.8); Alkaline Phosphatase 142 U/L (40-150); Anion Gap 10 mmol/L (10-20); BUN (Urea Nitrogen) 12 mg/dL (8.4-25.7); Bilirubin, Total 0.4 mg/dL (0.2-1.2); Calc. Creatinine Clearance 117 mL/min (70-130); Calcium 8.3 mg/dL (7.8-10.44); Carbon Dioxide 30 mmol/L (23-31); Chloride 100 mmol/L (98-107); Estimated GFR-MDRD Greater than 90; Globulin 2.3 g/dL (2.4-3.5); Glucose 130 mg/dL (80-115); Protein, Total 4.8 g/dL (5.8-8.1); Sodium 137 mmol/L (136-145)
[2018-09-10] MEDS: Mycophenolate 250 MG CAP PO SCH ×2 (08:12→19:59)
[2018-09-10] MEDS: Ondansetron ODT 4 MG TAB PO PRN (08:12)
[2018-09-10] MEDS: Enoxaparin Sodium 40 MG/0.4 ML SYRINGE SC SCH (08:12)
[2018-09-10] MEDS: Gabapentin 300 MG CAP PO SCH (08:13)
[2018-09-10] MEDS: Calcitriol 0.25 MCG CAP PO SCH (08:13)
[2018-09-10] MEDS: Allopurinol 100 MG TAB PO SCH (08:13)
[2018-09-10] MEDS: Hydrocortisone 10 mg Tablet PO SCH ×3 (08:13→15:11)
[2018-09-10] MEDS: Folic Acid 1 MG TAB PO SCH (08:14)
[2018-09-10] MEDS: Atorvastatin Calcium 10 MG TAB PO SCH (08:14)
[2018-09-10] MEDS: traMADol HCl 50 MG TAB PO PRN (08:14)
[2018-09-10] MEDS: Digoxin 0.125 MG TAB PO SCH (08:14)
[2018-09-10] MEDS: Tacrolimus 0.5 MG CAP PO SCH ×2 (08:15→19:57)
[2018-09-10] MEDS: Bumetanide 1 MG TAB PO SCH (08:21)
[2018-09-10] MEDS ORDERED: Potassium Chloride 40 MEQ in Premix Bag 1 BAG IVPB SCH (08:45)
[2018-09-10] MEDS: Potassium Chloride 20 MEQ in Premix Bag 1 BAG IVPB SCH ×2 (09:10→11:29)
--- NOTE | 2018-09-10 09:22 | PDOC.EVN ---
Event Note - Event Note Event Note: TRANSITION OF CARE NOTE 09/10/18 Patient is a very pleasant 68 yo male and personal patient of Dr. Christina. His is present in the room with him at all times. Date of admission was 09/07/18. Patient was seen in [facility] and had hypotensive episodes. Patient has known adrenal insufficiency and has had recurrent nausea and vomiting. Patient was then sent over to ED for evaluation. Upon further workup, the patient was found to require 2L fluid bolus as well as IV stress dose steroids and his BP normalized. During his 24 hour stress dose steroids, he was not nauseous, had no pain and his BP was WNL. On 09/09/18 patient was then transitioned back to his normal oral steroid dosing. He then became nauseated, vomited, and had pain. Patient had repeat EKG and troponins at that time which ruled out cardiac etiology. On 09/10/[address] Dr[address] Christina that this could be steroid induced esophagitis. Dr. Stringer, GI, was consulted for possible evaluation and he stated he would do an EGD on him on as well. As far as placement is concerned, patient was very resistant to [facility] facility care. His family and the patient are adamant that they will not go to [facility]. Patient reports that he is agreeable to SNF or rehab placement if Dr. Christina thinks this would be the best thing for him. Case Management has been consulted and they are looking into 1) [facility], 2) [facility], and 3) [facility] in that order of patient preference. Please contact with any questions or concerns.
[2018-09-10] MEDS ORDERED: PROPOFOL 200 MG/20 ML VIAL ONE (13:33)
[2018-09-10] MEDS ORDERED: Hydrocortisone Sod Succ/PF 100 mg/2 ml Vial ONE ×2 (13:33→17:08)
--- NOTE | 2018-09-10 16:44 | EKG ---
Test Reason : C/O CHEST PAIN Blood Pressure : / mmHG Vent. Rate : 073 BPM Atrial Rate : 073 BPM P-R Int : 192 ms QRS Dur : 084 ms QT Int : 400 ms P-R-T Axes : 065 037 254 degrees QTc Int : 440 ms Normal sinus rhythm Abnormal ECG When compared with ECG of 07-SEP-2018 15:18, (Unconfirmed) No significant change was found Confirmed by DR. Aminta GARCÍA ([id number]) on 09/10/2018 4:44:19 PM Referred By: BRIAN MEDEL Confirmed By:DR. Aminta GARCÍA
[2018-09-10] MEDS: Amitriptyline HCl 25 MG TAB PO SCH (19:57)
[2018-09-10] MEDS: Insulin Glargine 20 UNITS in Pre-Filled Syringe 1 EACH SC SCH (19:58)
--- NOTE | 2018-09-10 23:46 | CON ---
DATE OF CONSULTATION: 09/10/2018 CHIEF COMPLAINT: Nausea and vomiting. HISTORY OF PRESENT ILLNESS: Mr. Joseph is a 68-year-old man with adrenal insufficiency, who has had recurrent episodes of nausea and vomiting, and this is resulted in his inability to take his steroids, that then leads to hypotensive episodes and multiple hospitalizations over the last couple of months. Over the last month, he has had burning pain in his substernal area that is intermittent and lasts for hours at a time. It is unclear if the pain is directly related to swallowing. He has had some upper or epigastric discomfort as well. He had a couple of liquidy stools, but not persistent diarrhea or constipation. No blood in the stool. PAST MEDICAL HISTORY: Seizure disorder, metastatic prostate cancer, COPD, hyperlipidemia, obstructive sleep apnea, hypertension, CHF, adrenal insufficiency, history of renal transplant, on chronic immunosuppression, neuropathy, gout, insulin-dependent diabetes mellitus type 2, history of HSV encephalitis. PAST SURGICAL HISTORY: Kidney transplant, hernia repair, cholecystectomy. FAMILY HISTORY: Negative for GI malignancy. SOCIAL HISTORY: No alcohol, tobacco, or drugs. ALLERGIES: LATEX, MORPHINE, NSAIDS, PENICILLIN, BETADINE, SHELLFISH, TETRACYCLINE, LISINOPRIL. CURRENT MEDICATIONS: Include: 1. Amitriptyline. 2. Allopurinol. 3. Atorvastatin. 4. Bumex. 5. Calcitriol. 6. Colchicine. 7. Digoxin. 8. Enoxaparin. 9. Folic acid. 10. Gabapentin. 11. Hydrocortisone. 12. Insulin. 13. Metoclopramide 10 mg 3 times daily as needed. 14. Metoprolol. 15. Mycophenolate. 16. Pantoprazole. 17. Phenytoin. 18. Polyethylene glycol. 19. Tacrolimus. 20. Tramadol as needed. REVIEW OF SYSTEMS: Positive for fatigue, generalized weakness, and lower extremity edema. PHYSICAL EXAMINATION: VITAL SIGNS: Temperature is 97.7, pulse 70, blood pressure 146/72. GENERAL: He is in no acute distress. Alert and oriented x3. EYES: No scleral icterus. LUNGS: Clear to auscultation bilaterally. HEART: Regular rate and rhythm without murmur. ABDOMEN: Soft. He has mild epigastric tenderness on palpation. Bowel sounds are present. EXTREMITIES: No lower extremity edema. LABORATORY DATA: White blood cell count 7.0, hemoglobin 8.5, and platelets 204. Bilirubin 0.4, AST 25, ALT 22, alkaline phosphatase 142, creatinine 0.8, and albumin 2.5. IMPRESSION: Substernal burning pain and epigastric tenderness. He has a history of chronic immunosuppression, on steroids plus mycophenolate and tacrolimus due to history of renal transplant. He is also on chronic steroids for adrenal insufficiency. He has a history of herpes encephalitis. RECOMMENDATIONS: 1. Proton pump inhibitor daily. 2. We will plan endoscopy to evaluate for fungal esophagitis or viral esophagitis. Also rule out peptic ulcer disease. Job ID: [id number]
[2018-09-11 06:37] LABS: ALT (SGPT) 20 U/L (8-55); AST (SGOT) 32 U/L (5-34); Albumin 2.5 g/dL (3.4-4.8); Alkaline Phosphatase 156 U/L (40-150); Anion Gap 11 mmol/L (10-20); BUN (Urea Nitrogen) 9 mg/dL (8.4-25.7); Bilirubin, Total 0.4 mg/dL (0.2-1.2); Calc. Creatinine Clearance 137 mL/min (70-130); Calcium 8.2 mg/dL (7.8-10.44); Carbon Dioxide 30 mmol/L (23-31); Chloride 101 mmol/L (98-107); Estimated GFR-MDRD Greater than 90; Globulin 2.3 g/dL (2.4-3.5); Glucose 138 mg/dL (80-115); Potassium 3.2 mmol/L (3.5-5.1); Protein, Total 4.8 g/dL (5.8-8.1); Sodium 139 mmol/L (136-145)
--- NOTE | 2018-09-11 06:45 | PDOC.FM ---
- Subjective Subjective: Slept well. States he had his EGD yesterday and was told he has a hiatal hernia but nothing else abnormal. Hadn't eaten breakfast yet. States he was tired but otherwise feeling better. Denied nausea or vomiting since day before yesterday. - Objective MAR Reviewed: Yes Vital Signs & Weight: Vital Signs (12 hours) Temp Pulse Resp BP Pulse Ox 09/10/18 20:00 100 09/10/18 19:00 98.2 F 89 16 150/83 H 100 Weight Weight 97.069 kg I&O: 09/09/18 09/10/18 09/11/18 06:59 06:59 06:59 Intake Total 350 1720 Output Total 250 600 Balance 100 1120 Result Diagrams: 09/08/18 11:35 09/11/18 06:05 Phys Exam - Physical Examination Constitutional: NAD Respiratory: no wheezing, no rales, clear to auscultation bilateral Cardiovascular: RRR, no significant murmur Gastrointestinal: soft, non-tender, no distention, positive bowel sounds Musculoskeletal: no edema Psychiatric: normal affect, A&O x 3 Skin: no rash, cap refill <2 seconds Dx/Plan (1) Hypokalemia Code(s): E87.6 - HYPOKALEMIA Status: Acute (2) Hypotension Status: Resolved (3) Adrenal insufficiency Code(s): E27.40 - UNSPECIFIED ADRENOCORTICAL INSUFFICIENCY Status: Chronic (4) CKD (chronic kidney disease) stage 3, GFR 30-59 ml/min Status: Chronic (5) COPD (chronic obstructive pulmonary disease) Status: Chronic Qualifiers: COPD type: COPD with acute exacerbation Qualified Code(s): J44.1 - Chronic obstructive pulmonary disease with (acute) exacerbation (6) GERD (gastroesophageal reflux disease) Code(s): K21.9 - GASTRO-ESOPHAGEAL REFLUX DISEASE WITHOUT ESOPHAGITIS Status: Chronic (7) Hx of kidney transplant Status: Chronic (8) Hyperlipidemia Code(s): E78.5 - HYPERLIPIDEMIA, UNSPECIFIED Status: Chronic (9) Hypothyroid Code(s): E03.9 - HYPOTHYROIDISM, UNSPECIFIED Status: Chronic (10) hx of HSV encephalitis Status: Acute (11) CAD (coronary artery disease) Code(s): I25.10 - ATHSCL HEART DISEASE OF [place] CORONARY ARTERY W/O ANG PCTRS Status: Chronic Qualifiers: Coronary Disease-Associated Artery/Lesion type: [place] artery Associated angina: without angina (12) IDDM (insulin dependent diabetes mellitus) Code(s): E11.9 - TYPE 2 DIABETES MELLITUS WITHOUT COMPLICATIONS; Z79.4 - [place] (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 OF INSULIN Status: Chronic (13) Prostate cancer Code(s): C61 - MALIGNANT NEOPLASM OF PROSTATE Status: Chronic (14) Seizures Code(s): R56.9 - UNSPECIFIED CONVULSIONS Status: Chronic (15) Macrocytic anemia Code(s): D53.9 - NUTRITIONAL ANEMIA, UNSPECIFIED Status: Acute - Plan Plan: 68 yo gentleman with pmhx of AI who was a direct admission from clinic for hypotension and near syncope. Hypotension, resolved - hypovolemia vs infection vs adrenal insuffiency - pt also endorsed "episodes" of near syncope, of note he had an echo 04/2018 which showed a normal EF - from an infectious standpoint, he has been afebrile, and procal negative - UCx, BCx no growth to date - he has a hx of AI, and was given, Solucortef q6hrx4, completed stress dosing - Currently receiving IV hydrocortisone (at home dosing amount), will consider transition back to PO tomorrow if tolerating normal diet today - monitor vitals, strict IOs Epigastric/chest pain on 09/09, resolved - GI consulted, thinking infection vs steroid induced esophagitis - s/p EGD, told he has a hiatal hernia but no other obvious etiology for his pain, however pain controlled currently on tramadol prn - troponin x1 near baseline, no ekg changes, deemed non-cardiac - will continue daily PPI and continue to follow GI recs - will check a tsh as he has a hx of hypothyroidism per chart review and not currently on medication Adrenal insufficiency 2/2 chronic steroid use - Currently receiving IV hydrocortisone, will consider transition back to PO tomorrow if tolerating normal diet today - Stress dose completed as above Hypokalemia - 3.2 today, repleted with 20 IV KCL - Continue to replete, ordered a mag and phosph Hypothyroidism- - pt doesn't appear to be on meds but is documented in chart - will check a tsh as pt did complain of epigastric/chest pain on 09/09 HTN- - pt came in hypotensive, which has resolved - will slowly add back home meds Seizure disorder - Dilantin level 2.7 (low) - Continue Phenytoin - Recommend recheck as outpatient CAD - tropx1 near baseline, most likely demand - Downtrended - Episode of chest pain with nausea 09/09. No EKG changes, negative troponin unclear etiology, but deemed non-cardiac s/p Renal transplant - Continue home meds DMII - Lantus 20u HS - Moderate SSI & Hypoglycemic protocol - Changed to regular diet to promote nutrition. - Accuchecks ACHS HLD- - pt on atorvastatin 10mg daily GERD- - pt on pantoprazole daily COPD- - pt on albuterol prn shortness of breath Hx of HSV encephalitis - aware Prostate Cancer - History of Mets - Recommend continue outpatient follow up. Disposition: Stable, will advance diet as tolerated and consider transition back to po steroids tomorrow. Addendum - Attending - Attending Attestation Date/Time: 09/11/18 1203 I personally evaluated the patient and discussed the management with Dr. Wilkerson I agree with the History, Examination, Assessment and Plan documented above with any addition or exceptions noted below. Will keep on iv steroids today and transition back to po tomorrow. Replace K and Mg. Await placement to SNF
[2018-09-11] MEDS ORDERED: Potassium Chloride 20 MEQ in Premix Bag 1 BAG IVPB SCH (07:30)
[2018-09-11] MEDS: Hydrocortisone Sod Succ/PF 100 mg/2 ml Vial IVP SCH ×5 (08:41→17:24)
[2018-09-11] MEDS: Allopurinol 100 MG TAB PO SCH (08:41)
[2018-09-11] MEDS: Enoxaparin Sodium 40 MG/0.4 ML SYRINGE SC SCH (08:41)
[2018-09-11] MEDS: Atorvastatin Calcium 10 MG TAB PO SCH (08:42)
[2018-09-11] MEDS: Digoxin 0.125 MG TAB PO SCH (08:42)
[2018-09-11] MEDS: Calcitriol 0.25 MCG CAP PO SCH (08:42)
[2018-09-11] MEDS: Folic Acid 1 MG TAB PO SCH (08:46)
[2018-09-11] MEDS: Gabapentin 300 MG CAP PO SCH (08:46)
[2018-09-11] MEDS: Bumetanide 1 MG TAB PO SCH (08:46)
[2018-09-11] MEDS: Tacrolimus 0.5 MG CAP PO SCH ×2 (08:47→20:55)
[2018-09-11] MEDS: Mycophenolate 250 MG CAP PO SCH ×2 (08:57→20:55)
[2018-09-11] MEDS: traMADol HCl 50 MG TAB PO PRN ×2 (10:58→20:59)
[2018-09-11 11:19] LABS: Phosphorus 2.6 mg/dL (2.3-4.7)
[2018-09-11 11:38] LABS: Magnesium 0.9 mg/dL (1.6-2.6)
[2018-09-11] MEDS ORDERED: Magnesium 2 GM/NS 0.9% 100 ML 2 GM in Premix Bag 1 BAG IVPB SCH (12:15)
[2018-09-11] MEDS ORDERED: Magnesium 2 GM/50 ML 2 GM in Premix Bag 1 BAG IVPB SCH (13:00)
--- NOTE | 2018-09-11 16:19 | PRG ---
DATE OF SERVICE: 09/11/2018 SUBJECTIVE: Mr. Joseph feels better today. He is tolerating a solid diet without nausea, vomiting. The burning epigastric and substernal pain is greatly improved today. OBJECTIVE: VITAL SIGNS: Temperature 98.0, pulse 70, blood pressure 149/74. GENERAL: He is in no acute distress. He is alert and oriented. LUNGS: Clear to auscultation bilaterally. HEART: Regular rate and rhythm without murmur. ABDOMEN: Soft, nontender, nondistended. Bowel sounds are present. EXTREMITIES: Trace lower extremity edema. LABORATORY DATA: White blood cell count 7.0, hemoglobin 8.5, platelets 204. These labs were from 09/08/2018. Labs from today, creatinine 0.7, bilirubin 0.4, AST 32, ALT 20, alkaline phosphatase 156, albumin 2.5. IMPRESSION: 1. Recurrent nausea and vomiting and epigastric and substernal discomfort. No source for the symptoms was identified by endoscopy. There was a slight ring that was dilated in the esophagus, however, no significant change after dilation. Symptoms could be related to the diabetes if he is developing hyperglycemia as an outpatient. He could have motility delay with the stomach. Since his symptoms are significantly improved currently, I would not plan further intervention for this. 2. He is on multiple medications as well that could be contributing to his symptoms. Again today, he is doing better. RECOMMENDATIONS: 1. Continue current medications including proton pump inhibitor and metoclopramide as needed. 2. He could possibly discharge tomorrow and he is being considered for rehab or nursing type facility given the frequent readmissions. I will sign off for now. Please call if GI can be of assistance. Job ID: [id number]
--- NOTE | 2018-09-11 16:26 | OP ---
DATE OF PROCEDURE: 09/10/2018 PROCEDURE PERFORMED: Esophagogastroduodenoscopy with esophageal dilation over guidewire. PREOPERATIVE DIAGNOSIS: Recurrent nausea and vomiting and epigastric to substernal pain. DESCRIPTION OF PROCEDURE: Informed consent was obtained from the patient. He was sedated with total intravenous anesthesia. The bite block was placed and the endoscope was advanced easily to the second portion of the duodenum and retroflexion was performed in the stomach. The esophagus had a very slight ring in the distal esophagus which was dilated to 18 mm with a Savary dilator. Second-look endoscopy showed this area to be unchanged after dilation. There was a small 2 cm hiatal hernia. The remainder of the esophagus and GE junction were normal. The stomach was normal including retroflexed views. The pylorus and first and second portions of the duodenum were normal. IMPRESSION: 1. 2 cm hiatal hernia. 2. Very slight ring in the distal esophagus dilated to 18 mm with a Savary dilator. Second-look endoscopy showed this area to be unchanged. 3. Otherwise normal EGD. There is no source for his pain identified. He has no fungal or viral esophagitis. No peptic ulcer disease. RECOMMENDATIONS: 1. Proton pump inhibitor daily. 2. Advance diet. Job ID: [id number]
[2018-09-11] MEDS: HumaLOG 300 UNITS/3 ML VIAL SC PRN (17:23)
--- NOTE | 2018-09-11 17:44 | EKG ---
Test Reason : Blood Pressure : / mmHG Vent. Rate : 087 BPM Atrial Rate : 100 BPM P-R Int : 178 ms QRS Dur : 084 ms QT Int : 388 ms P-R-T Axes : -14 031 -86 degrees QTc Int : 466 ms Sinus rhythm with marked sinus arrhythmia Prolonged QT Abnormal ECG Confirmed by SHRUTHI ANGELO ([id number]), supervising editor trailer TOYA URIBE ([id number]) on 09/11/2018 5:43:46 PM Referred By: Confirmed By:SHRUTHI ANEGLO
[2018-09-11] MEDS: Ondansetron ODT 4 MG TAB PO PRN (18:42)
[2018-09-11] MEDS: Insulin Glargine 20 UNITS in Pre-Filled Syringe 1 EACH SC SCH (20:54)
[2018-09-12 05:59] LABS: ALT (SGPT) 21 U/L (8-55); AST (SGOT) 29 U/L (5-34); Albumin 2.6 g/dL (3.4-4.8); Alkaline Phosphatase 163 U/L (40-150); Anion Gap 9 mmol/L (10-20); BUN (Urea Nitrogen) 7 mg/dL (8.4-25.7); Bilirubin, Total 0.5 mg/dL (0.2-1.2); Calc. Creatinine Clearance 152 mL/min (70-130); Calcium 8.6 mg/dL (7.8-10.44); Carbon Dioxide 33 mmol/L (23-31); Chloride 98 mmol/L (98-107); Estimated GFR-MDRD Greater than 90; Globulin 2.5 g/dL (2.4-3.5); Glucose 83 mg/dL (80-115); Protein, Total 5.1 g/dL (5.8-8.1); Sodium 137 mmol/L (136-145)
[2018-09-12 06:02] LABS: Potassium 2.9 mmol/L (3.5-5.1)
[2018-09-12] MEDS: Folic Acid 1 MG TAB PO SCH (08:01)
[2018-09-12] MEDS: Gabapentin 300 MG CAP PO SCH (08:01)
[2018-09-12] MEDS: Potassium Chloride 20 MEQ TAB PO SCH ×2 (08:02→09:27)
[2018-09-12] MEDS: Amlodipine 5 MG TAB PO SCH (08:02)
[2018-09-12] MEDS: Atorvastatin Calcium 10 MG TAB PO SCH (08:03)
[2018-09-12] MEDS: Bumetanide 1 MG TAB PO SCH (08:04)
[2018-09-12] MEDS: Digoxin 0.125 MG TAB PO SCH (08:04)
[2018-09-12] MEDS: Calcitriol 0.25 MCG CAP PO SCH (08:04)
[2018-09-12] MEDS: Tacrolimus 0.5 MG CAP PO SCH ×2 (08:05→20:32)
[2018-09-12] MEDS: Allopurinol 100 MG TAB PO SCH (08:06)
[2018-09-12] MEDS: Hydrocortisone Sod Succ/PF 100 mg/2 ml Vial IVP SCH (08:07)
[2018-09-12] MEDS: Enoxaparin Sodium 40 MG/0.4 ML SYRINGE SC SCH (08:08)
--- NOTE | 2018-09-12 08:10 | PDOC.FM ---
- Subjective Subjective: Endorsed an episode of n/v overnight after eating a snow cone. He did not eat anything else yesterday per his and still denies feeling hungry. - Objective MAR Reviewed: Yes Vital Signs & Weight: Vital Signs (12 hours) Temp Pulse Resp BP Pulse Ox 09/12/18 08:00 98.7 F 84 18 134/68 91 L Weight Weight 97.069 kg Result Diagrams: 09/08/18 11:35 09/12/18 04:35 Phys Exam - Physical Examination Constitutional: NAD Respiratory: no wheezing, no rales, no rhonchi, clear to auscultation bilateral Cardiovascular: RRR, no significant murmur Gastrointestinal: soft, non-tender, no distention Musculoskeletal: no edema, pulses present Neurological: non-focal Psychiatric: normal affect, A&O x 3 Skin: no rash, cap refill <2 seconds Dx/Plan (1) Hypokalemia Code(s): E87.6 - HYPOKALEMIA Status: Acute (2) Hypotension Status: Resolved (3) Adrenal insufficiency Code(s): E27.40 - UNSPECIFIED ADRENOCORTICAL INSUFFICIENCY Status: Chronic (4) CKD (chronic kidney disease) stage 3, GFR 30-59 ml/min Status: Chronic (5) COPD (chronic obstructive pulmonary disease) Status: Chronic Qualifiers: COPD type: COPD with acute exacerbation Qualified Code(s): J44.1 - Chronic obstructive pulmonary disease with (acute) exacerbation (6) GERD (gastroesophageal reflux disease) Code(s): K21.9 - GASTRO-ESOPHAGEAL REFLUX DISEASE WITHOUT ESOPHAGITIS Status: Chronic (7) Hx of kidney transplant Status: Chronic (8) Hyperlipidemia Code(s): E78.5 - HYPERLIPIDEMIA, UNSPECIFIED Status: Chronic (9) Hypothyroid Code(s): E03.9 - HYPOTHYROIDISM, UNSPECIFIED Status: Chronic (10) hx of HSV encephalitis Status: Acute (11) CAD (coronary artery disease) Code(s): I25.10 - ATHSCL HEART DISEASE OF [place] CORONARY ARTERY W/O ANG PCTRS Status: Chronic Qualifiers: Coronary Disease-Associated Artery/Lesion type: [place] artery Associated angina: without angina (12) IDDM (insulin dependent diabetes mellitus) Code(s): E11.9 - TYPE 2 DIABETES MELLITUS WITHOUT COMPLICATIONS; Z79.4 - [place] (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 OF INSULIN Status: Chronic (13) Prostate cancer Code(s): C61 - MALIGNANT NEOPLASM OF PROSTATE Status: Chronic (14) Seizures Code(s): R56.9 - UNSPECIFIED CONVULSIONS Status: Chronic (15) Macrocytic anemia Code(s): D53.9 - NUTRITIONAL ANEMIA, UNSPECIFIED Status: Acute (16) Hypomagnesemia Code(s): E83.42 - HYPOMAGNESEMIA Status: Acute - Plan Plan: 68 yo gentleman with pmhx of AI who was a direct admission from clinic for hypotension and near syncope. Hypotension, resolved - hypovolemia vs infection vs adrenal insuffiency - pt also endorsed "episodes" of near syncope, of note he had an echo 04/2018 which showed a normal EF - he has recurrent episodes of n/v which likely contributes to his hypertension , he was not able to tolerate his po steroids on admission, switched back to po today to evaluate if he can tolerate them. - from an infectious standpoint, he has been afebrile, and procal negative - UCx, BCx no growth to date Decreased PO intake, recurrent -with recurrent hypokalemia, hypomagnesemia -episodes of nausea and vomiting with some intermittent epigastric pain -will check an H. pylori -ordered dietitian and speech consults Epigastric/chest pain on 09/09 -episode of bried epigastric pain o/v - GI consulted, thinking infection vs steroid induced esophagitis - s/p EGD, told he has a hiatal hernia but no other obvious etiology for his pain, however pain controlled currently on tramadol prn - troponin x1 near baseline, no ekg changes, deemed non-cardiac - continue PPI - GI signed off Adrenal insufficiency 2/2 chronic steroid use - Transition back to PO hydrocortisone today - Stress dose completed as above Hypokalemia - 2.9 today, repleted with 40mg IV today - Continue to replete, ordered a mag and phosph -Ordered daily supplementation Hypomagnesemia- -replaced today again -will recheck tomorrow -ordered daily supplemenation Hypophosphatemia- -Replaced -will recheck in the am -added daily supplementation Hypothyroidism- -tsh wnl HTN- - pt came in hypotensive, which has resolved - amlodipine restarted Seizure disorder - Dilantin level 2.7 (low) - Continue Phenytoin - Recommend recheck as outpatient CAD - tropx1 near baseline, most likely demand - Downtrended - Episode of chest pain with nausea 09/09. No EKG changes, negative troponin unclear etiology, but deemed non-cardiac s/p Renal transplant - Continue home meds DMII - Lantus 20u HS - Moderate SSI & Hypoglycemic protocol - Changed to regular diet to promote nutrition. - Accuchecks ACHS HLD- - pt on atorvastatin 10mg daily GERD- - pt on pantoprazole daily COPD- - pt on albuterol prn shortness of breath Hx of HSV encephalitis - aware Prostate Cancer - History of Mets - Recommend continue outpatient follow up. Disposition: Stable, will advance diet as tolerated and consider transition back to po steroids tomorrow. Addendum - Attending - Attending Attestation Date/Time: 09/12/18 1112 I personally evaluated the patient and discussed the management with Dr. Wilkerson I agree with the History, Examination, Assessment and Plan documented above with any addition or exceptions noted below. Replace K IV (as patient struggles to swallow oral tabs). transition steroids to oral. Nutrition consult and patient encouraged to start eating. Still awaiting SNF placement.
[2018-09-12] MEDS: traMADol HCl 50 MG TAB PO PRN ×2 (08:12→21:48)
[2018-09-12] MEDS: Acetaminophen 325 MG TAB PO PRN ×2 (08:16→21:49)
[2018-09-12] MEDS ORDERED: Non-Formulary Item 1 EACH (Amlodipine Besylate [Norvasc] 2.5 MG) PO SCH (09:00)
[2018-09-12 09:15] LABS: Magnesium 1.2 mg/dL (1.6-2.6); Phosphorus 2.2 mg/dL (2.3-4.7)
[2018-09-12] MEDS: Mycophenolate 250 MG CAP PO SCH ×2 (10:13→20:33)
[2018-09-12] MEDS: Potassium Chloride 20 MEQ/100 ML PREMIX BAG IVPB SCH ×2 (10:13→12:02)
[2018-09-12] MEDS ORDERED: Magnesium 2 GM/50 ML 2 GM in Premix Bag 1 BAG IVPB SCH (10:30)
[2018-09-12] MEDS: Hydrocortisone 10 mg Tablet PO SCH ×3 (11:59→20:32)
[2018-09-12] MEDS ORDERED: Hydrocortisone 10 mg Tablet PO SCH ×2 (12:00→21:00)
--- NOTE | 2018-09-12 13:01 | RAD ---
PORTABLE CHEST: DATE: 09/12/2018. PROVIDED CLINICAL HISTORY: Decreased breath sounds. FINDINGS: Comparison 09/07/2018. Cardiac and mediastinal silhouette is unchanged in appearance. Left subclavia n implanted port is again seen I similar position. Obscuration of the left hemidiaphragm may be on t he basis of basilar pleural and/or parenchymal opacity. Lungs appear otherwise clear. No evidence f or pneumothorax. IMPRESSION: Obscuration of the left hemidiaphragm may be on the basis of left basilar pleural and/or parenchymal opacity. POS: ABDOUL
--- NOTE | 2018-09-12 14:06 | PDOC.EVN ---
Event Note - Event Note Event Note: Transition of care note, continuation from Dr. Rea's note. -Pt over the weekend mostly c/o suppressed appetite and decreased PO intake. He was seen by GI for his complaint of epigastric pain who did an upper endoscopy with findings of a hiatal hernia and an esophageal ring that he dilated, otherwise, no findings of steroid induced or infectious esophagitis. We replaced his potassium, magnesium, and phosphorous, however d/t decreased po intake these electrolytes continue to be low. Pt had an additional episode that he refers to as spells, of n/v and epigastric pain overnight on 09/11, however this morning denied complaints. Speech was consulted to evaluate his swallow and for recs on diet type and the dietitian was consulted as well. Despite, decreased po intake, we did transition him back to his po medications to see if he can tolerate them. His hypotension that he initially presented with, has resolved and was placed back on his po amlodipine today. He was also transitioned back to his po hydrocortisone that he takes daily for his AI. Long- term, he is still pending placement at a SNF.
[2018-09-12 16:15] LABS: Magnesium 1.4 mg/dL (1.6-2.6); Potassium 3.7 mmol/L (3.5-5.1)
[2018-09-12] MEDS: HumaLOG 300 UNITS/3 ML VIAL SC PRN (16:58)
[2018-09-12] MEDS: Amitriptyline HCl 25 MG TAB PO SCH (20:33)
[2018-09-12] MEDS: Magnesium Oxide 400 MG TAB PO SCH (20:33)
[2018-09-12] MEDS: Insulin Glargine 20 UNITS in Pre-Filled Syringe 1 EACH SC SCH (22:34)
[2018-09-13 05:14] LABS: Phosphorus 3.2 mg/dL (2.3-4.7)
[2018-09-13 05:18] LABS: ALT (SGPT) 20 U/L (8-55); AST (SGOT) 27 U/L (5-34); Albumin 2.4 g/dL (3.4-4.8); Alkaline Phosphatase 149 U/L (40-150); Anion Gap 11 mmol/L (10-20); BUN (Urea Nitrogen) 8 mg/dL (8.4-25.7); Bilirubin, Total 0.4 mg/dL (0.2-1.2); Calc. Creatinine Clearance 147 mL/min (70-130); Calcium 8.5 mg/dL (7.8-10.44); Carbon Dioxide 31 mmol/L (23-31); Chloride 98 mmol/L (98-107); Estimated GFR-MDRD Greater than 90; Globulin 2.3 g/dL (2.4-3.5); Glucose 105 mg/dL (80-115); Magnesium 1.2 mg/dL (1.6-2.6); Potassium 3.2 mmol/L (3.5-5.1); Protein, Total 4.7 g/dL (5.8-8.1); Sodium 137 mmol/L (136-145)
--- NOTE | 2018-09-13 06:55 | PDOC.EVN ---
Addendum - Attending - Attending Attestation Date/Time: 09/13/18 0653 I personally evaluated the patient and discussed the management with Dr. Samuels. I agree with the History, Examination, Assessment and Plan documented in his progress note with any addition or exceptions noted below. Patient overall stable this morning. Denies continued nausea/vomiting, but continues to report poor appetite. His electrolytes overall normalized, but continues to be evidence of abnormalities from poor PO intake. Replete Mg today. Continue to work to get all his meds back to PO regimen. Consider that multiple of his sedating/psychoactive medications may be contributing to some of his symptoms. 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
[2018-09-13] MEDS: Allopurinol 100 MG TAB PO SCH (08:22)
[2018-09-13] MEDS: Folic Acid 1 MG TAB PO SCH (08:22)
[2018-09-13] MEDS: Bumetanide 1 MG TAB PO SCH (08:22)
[2018-09-13] MEDS: Calcitriol 0.25 MCG CAP PO SCH (08:22)
[2018-09-13] MEDS: Digoxin 0.125 MG TAB PO SCH (08:23)
[2018-09-13] MEDS: Atorvastatin Calcium 10 MG TAB PO SCH (08:23)
[2018-09-13] MEDS: Amlodipine 5 MG TAB PO SCH (08:23)
[2018-09-13] MEDS: Gabapentin 300 MG CAP PO SCH (08:23)
[2018-09-13] MEDS: Mycophenolate 250 MG CAP PO SCH ×2 (08:23→20:09)
[2018-09-13] MEDS: Magnesium Oxide 400 MG TAB PO SCH ×2 (08:23→20:09)
[2018-09-13] MEDS: Tacrolimus 0.5 MG CAP PO SCH ×2 (08:24→20:10)
[2018-09-13] MEDS: Enoxaparin Sodium 40 MG/0.4 ML SYRINGE SC SCH (08:25)
[2018-09-13] MEDS: HYDROcodone/Acetaminophen 5/325 mg Tablet PO PRN ×2 (08:30→17:40)
--- NOTE | 2018-09-13 09:57 | OP ---
DATE OF PROCEDURE: 09/10/2018 PROCEDURES PERFORMED: Esophagogastroduodenoscopy with esophageal dilation over guidewire. PREOPERATIVE DIAGNOSES: Substernal chest pain and recurrent nausea and vomiting. DESCRIPTION OF PROCEDURE: Informed consent was obtained from the patient. He was sedated with total intravenous anesthesia. The bite block was placed and the endoscope was advanced easily to the second portion of the duodenum and retroflexion was performed in the stomach. The esophagus had a very slight ring in the distal esophagus that was dilated to 18 mm with a Savary dilator over a guidewire. Second-look endoscopy showed no change after the dilation. A 2 cm hiatal hernia was present. The stomach was otherwise normal including retroflexed views. The pylorus and first and second portions of the duodenum were normal. IMPRESSION: 1. A 2-cm hiatal hernia. 2. Very slight ring in the distal esophagus, dilated to 18 mm with a Savary dilator, unchanged on second look. 3. Otherwise normal EGD. There was no source for his pain or nausea and vomiting identified endoscopically. There was no fungal esophagitis or viral esophagitis. No peptic ulcer disease. RECOMMENDATIONS: 1. Proton pump inhibitor daily. 2. Advance diet. Job ID: [id number]
--- NOTE | 2018-09-13 09:57 | PDOC.FM ---
- Subjective Subjective: This morning patient is AxOx3. He states he is feeling well overall just having some mild back pain. He states he is feeling like he could eat some of his breakfast this morning. He is agreeable to plan of going to rehab for a time but still wants to be able to go home. - Objective Vital Signs & Weight: Vital Signs (12 hours) Temp Pulse Resp BP Pulse Ox 09/13/18 08:00 97 09/13/18 07:35 97.6 F 74 18 150/76 H 97 Weight Weight 93.44 kg Result Diagrams: 09/08/18 11:35 09/13/18 03:30 Phys Exam - Physical Examination Constitutional: NAD HEENT: moist MMs, sclera anicteric Neck: no nodes, full ROM Respiratory: no wheezing, clear to auscultation bilateral Cardiovascular: RRR, no significant murmur, no rub Gastrointestinal: soft, non-tender, positive bowel sounds Musculoskeletal: no edema, pulses present Neurological: non-focal, moves all 4 limbs Psychiatric: normal affect, A&O x 3 Skin: no rash, cap refill <2 seconds Dx/Plan (1) Acute encephalopathy Code(s): G93.40 - ENCEPHALOPATHY, UNSPECIFIED Status: Acute (2) Adrenal insufficiency Code(s): E27.40 - UNSPECIFIED ADRENOCORTICAL INSUFFICIENCY Status: Chronic (3) CKD (chronic kidney disease) stage 3, GFR 30-59 ml/min Status: Chronic (4) Hypokalemia Code(s): E87.6 - HYPOKALEMIA Status: Acute (5) Hypomagnesemia Code(s): E83.42 - HYPOMAGNESEMIA Status: Acute (6) Morbid obesity with BMI of 40.0-44.9, adult Code(s): E66.01 - MORBID (SEVERE) OBESITY DUE TO EXCESS CALORIES; Z68.41 - BODY MASS INDEX (BMI) 40.0-44.9, ADULT Status: Chronic (7) Prostate cancer Code(s): C61 - MALIGNANT NEOPLASM OF PROSTATE Status: Chronic - Plan Plan: 68 yo gentleman with pmhx of AI who was a direct admission from clinic for hypotension and near syncope. Hypotension, resolved-> suspect 2/2 adrenal insufficiency as was not taking meds consistently - hypovolemia vs infection vs adrenal insuffiency - pt also endorsed "episodes" of near syncope, of note he had an echo 04/2018 which showed a normal EF - he has recurrent episodes of n/v which likely contributes to his hypertension , he was not able to tolerate his po steroids on admission - from an infectious standpoint, he has been afebrile, and procal negative - UCx, BCx no growth to date Decreased PO intake, recurrent -with recurrent hypokalemia, hypomagnesemia -episodes of nausea and vomiting with some intermittent epigastric pain -ordered dietitian and speech consults - plan to have access to ensure shakes upon d/c - trying to wean off of meds, poly-pharmacy likely contributing Epigastric/chest pain on 09/09 -episode of bried epigastric pain o/v - GI consulted, thinking infection vs steroid induced esophagitis - s/p EGD, told he has a hiatal hernia but no other obvious etiology for his pain, however pain controlled currently on tramadol prn - troponin x1 near baseline, no ekg changes, deemed non-cardiac - continue PPI - GI signed off Adrenal insufficiency 2/2 chronic steroid use - Transition back to PO hydrocortisone - Stress dose completed as above Hypokalemia - Continue to replete -Ordered daily supplementation Hypomagnesemia- -ordered daily supplemenation Hypophosphatemia- -Replaced -added daily supplementation Hypothyroidism- -tsh wnl HTN- resolved Seizure disorder - Dilantin level 2.7 (low) - Continue Phenytoin - Recommend recheck as outpatient CAD - tropx1 near baseline, most likely demand - Downtrended - Episode of chest pain with nausea 09/09. No EKG changes, negative troponin unclear etiology, but deemed non-cardiac s/p Renal transplant - Continue home meds DMII - Lantus 20u HS - Moderate SSI & Hypoglycemic protocol - Changed to regular diet to promote nutrition. - Accuchecks ACHS HLD- - pt on atorvastatin 10mg daily GERD- - pt on pantoprazole daily COPD- - pt on albuterol prn shortness of breath Hx of HSV encephalitis - aware Prostate Cancer - History of Mets - Recommend continue outpatient follow up. Disposition: Stable for d/c awaiting placement
[2018-09-13] MEDS ORDERED: Methyl Salicylate/Menthol 85 GM TUBE TOP PRN (10:50)
[2018-09-13] MEDS: Ondansetron ODT 4 MG TAB PO PRN (11:52)
[2018-09-13] MEDS: Hydrocortisone 10 mg Tablet PO SCH ×3 (11:52→20:49)
[2018-09-13] MEDS: Amitriptyline HCl 25 MG TAB PO SCH (20:09)
[2018-09-13] MEDS: Insulin Glargine 10 UNITS in Pre-Filled Syringe 1 EACH SC SCH (20:11)
[2018-09-13] MEDS: Acetaminophen 325 MG TAB PO PRN (20:48)
[2018-09-13] MEDS: traMADol HCl 50 MG TAB PO PRN (20:48)
[2018-09-13] MEDS: Benzonatate 100 MG CAP PO PRN (20:50)
--- NOTE | 2018-09-14 06:56 | PDOC.EVN ---
Addendum - Attending - Attending Attestation Date/Time: 09/14/18 3535 I personally evaluated the patient and discussed the management with Dr. Samuels. I agree with the History, Examination, Assessment and Plan documented in his progress note with any addition or exceptions noted below. Patient overall doing stable. Had meals yesterday and reports that "they went". Denies nausea, though did have 1 episode of vomiting after brushing his teeth. reports his swallowing is improved. Labs stable. Continue to work on placement for patient and therapy while in house. Minimal further workup planned pending clinical course.
[2018-09-14] MEDS: Bumetanide 1 MG TAB PO SCH (08:11)
[2018-09-14] MEDS: Enoxaparin Sodium 40 MG/0.4 ML SYRINGE SC SCH (08:11)
[2018-09-14] MEDS: Benzonatate 100 MG CAP PO PRN (08:11)
[2018-09-14] MEDS: Mycophenolate 250 MG CAP PO SCH ×2 (08:11→21:38)
[2018-09-14] MEDS: Allopurinol 100 MG TAB PO SCH (08:12)
[2018-09-14] MEDS: Tacrolimus 0.5 MG CAP PO SCH ×2 (08:12→21:39)
[2018-09-14] MEDS: Amlodipine 5 MG TAB PO SCH (08:12)
[2018-09-14] MEDS: Atorvastatin Calcium 10 MG TAB PO SCH (08:12)
[2018-09-14] MEDS: Folic Acid 1 MG TAB PO SCH (08:13)
[2018-09-14] MEDS: Gabapentin 300 MG CAP PO SCH (08:13)
[2018-09-14] MEDS: Digoxin 0.125 MG TAB PO SCH (08:13)
[2018-09-14] MEDS: Magnesium Oxide 400 MG TAB PO SCH ×2 (08:13→21:39)
[2018-09-14] MEDS: Calcitriol 0.25 MCG CAP PO SCH (08:13)
[2018-09-14 08:17] LABS: ALT (SGPT) 15 U/L (8-55); AST (SGOT) 24 U/L (5-34); Albumin 2.3 g/dL (3.4-4.8); Alkaline Phosphatase 143 U/L (40-150); Anion Gap 7 mmol/L (10-20); BUN (Urea Nitrogen) 8 mg/dL (8.4-25.7); Bilirubin, Total 0.5 mg/dL (0.2-1.2); Calc. Creatinine Clearance 148 mL/min (70-130); Calcium 8.9 mg/dL (7.8-10.44); Carbon Dioxide 34 mmol/L (23-31); Chloride 98 mmol/L (98-107); Estimated GFR-MDRD Greater than 90; Globulin 2.5 g/dL (2.4-3.5); Glucose 121 mg/dL (80-115); Potassium 3.4 mmol/L (3.5-5.1); Protein, Total 4.8 g/dL (5.8-8.1); Sodium 136 mmol/L (136-145)
--- NOTE | 2018-09-14 10:11 | PDOC.FM ---
- Subjective Subjective: This morning patient is feeling well. Denies N/V yesterday, states he was able to eat most of his meals. Denies pain this AM. Still feeling weak overall but states he feels like he is getting stronger. - Objective Vital Signs & Weight: Vital Signs (12 hours) Temp Pulse Resp BP BP Pulse Ox 09/14/18 04:00 97.9 F 87 18 149/83 H 95 09/13/18 23:59 99.0 F 96 18 137/73 09/13/18 23:03 99.2 F Weight Admit Weight 93.44 kg Weight 94.665 kg I&O: 09/13/18 09/14/18 09/15/18 06:59 06:59 06:59 Intake Total 300 Output Total 250 Balance 50 Result Diagrams: 09/08/18 11:35 09/14/18 07:38 Phys Exam - Physical Examination Constitutional: NAD HEENT: PERRLA, moist MMs Respiratory: no wheezing, clear to auscultation bilateral Cardiovascular: RRR, no significant murmur Gastrointestinal: soft, non-tender, no distention, positive bowel sounds Musculoskeletal: no edema, pulses present Neurological: non-focal, moves all 4 limbs Psychiatric: normal affect, A&O x 3 Skin: no rash, cap refill <2 seconds Dx/Plan (1) Acute encephalopathy Code(s): G93.40 - ENCEPHALOPATHY, UNSPECIFIED Status: Acute (2) Adrenal insufficiency Code(s): E27.40 - UNSPECIFIED ADRENOCORTICAL INSUFFICIENCY Status: Chronic (3) CKD (chronic kidney disease) stage 3, GFR 30-59 ml/min Status: Chronic (4) Hypokalemia Code(s): E87.6 - HYPOKALEMIA Status: Acute (5) Hypomagnesemia Code(s): E83.42 - HYPOMAGNESEMIA Status: Acute (6) Morbid obesity with BMI of 40.0-44.9, adult Code(s): E66.01 - MORBID (SEVERE) OBESITY DUE TO EXCESS CALORIES; Z68.41 - BODY MASS INDEX (BMI) 40.0-44.9, ADULT Status: Chronic (7) Prostate cancer Code(s): C61 - MALIGNANT NEOPLASM OF PROSTATE Status: Chronic - Plan Plan: 68 yo gentleman with pmhx of AI who was a direct admission from clinic for hypotension and near syncope. Hypotension, resolved-> suspect 2/2 adrenal insufficiency as was not taking meds consistently - hypovolemia vs infection vs adrenal insuffiency - pt also endorsed "episodes" of near syncope, of note he had an echo 04/2018 which showed a normal EF - he has recurrent episodes of n/v which likely contributes to his hypertension , he was not able to tolerate his po steroids on admission - from an infectious standpoint, he has been afebrile, and procal negative - UCx, BCx no growth to date Decreased PO intake, recurrent - with recurrent hypokalemia, hypomagnesemia - episodes of nausea and vomiting with some intermittent epigastric pain - ordered dietitian and speech consults, rec'd shakes, ST eval and ok'd diet - plan to have access to ensure shakes upon d/c - trying to wean off of meds, poly-pharmacy likely contributing Epigastric/chest pain on 09/09 -episode of bried epigastric pain o/v - GI consulted, thinking infection vs steroid induced esophagitis - s/p EGD, told he has a hiatal hernia but no other obvious etiology for his pain, however pain controlled currently on tramadol prn - troponin x1 near baseline, no ekg changes, deemed non-cardiac - continue PPI - GI signed off Adrenal insufficiency 2/2 chronic steroid use - Transition back to PO hydrocortisone - 10mg hydrocortisone AM, 5 at noon and 5pm Hypokalemia - Continue to replete -Ordered daily supplementation Hypomagnesemia- -ordered daily supplemenation Hypophosphatemia- -Replaced -added daily supplementation Hypothyroidism- -tsh wnl HTN- resolved Seizure disorder - Dilantin level 2.7 (low) - Continue Phenytoin - Recommend recheck as outpatient CAD - tropx1 near baseline, most likely demand - Downtrended - Episode of chest pain with nausea 09/09. No EKG changes, negative troponin unclear etiology, but deemed non-cardiac s/p Renal transplant - Continue home meds DMII - Lantus 10u HS - Moderate SSI & Hypoglycemic protocol - Changed to regular diet to promote nutrition. - Accuchecks ACHS HLD- - pt on atorvastatin 10mg daily GERD- - pt on pantoprazole daily COPD- - pt on albuterol prn shortness of breath Hx of HSV encephalitis - aware Prostate Cancer - History of Mets - communicated w/ Dr. Coon, rec'd outpt f/u Disposition: Stable for d/c awaiting placement
[2018-09-14] MEDS: HYDROcodone/Acetaminophen 5/325 mg Tablet PO PRN (10:29)
[2018-09-14] MEDS: Ondansetron ODT 4 MG TAB PO PRN (10:32)
[2018-09-14] MEDS: Hydrocortisone 10 mg Tablet PO SCH ×3 (11:08→18:28)
[2018-09-14] MEDS: HumaLOG 300 UNITS/3 ML VIAL SC PRN (18:29)
[2018-09-14] MEDS: Amitriptyline HCl 25 MG TAB PO SCH (21:39)
[2018-09-14] MEDS: Acetaminophen 325 MG TAB PO PRN (21:41)
[2018-09-14] MEDS: traMADol HCl 50 MG TAB PO PRN (21:41)
[2018-09-14] MEDS: Insulin Glargine 10 UNITS in Pre-Filled Syringe 1 EACH SC SCH (21:41)
[2018-09-15 06:18] LABS: ALT (SGPT) 13 U/L (8-55); AST (SGOT) 19 U/L (5-34); Albumin 2.3 g/dL (3.4-4.8); Alkaline Phosphatase 129 U/L (40-150); Anion Gap 8 mmol/L (10-20); BUN (Urea Nitrogen) 9 mg/dL (8.4-25.7); Bilirubin, Total 0.5 mg/dL (0.2-1.2); Calc. Creatinine Clearance 145 mL/min (70-130); Calcium 8.9 mg/dL (7.8-10.44); Carbon Dioxide 33 mmol/L (23-31); Chloride 98 mmol/L (98-107); Estimated GFR-MDRD Greater than 90; Globulin 2.5 g/dL (2.4-3.5); Glucose 88 mg/dL (80-115); Potassium 3.2 mmol/L (3.5-5.1); Protein, Total 4.8 g/dL (5.8-8.1); Sodium 136 mmol/L (136-145)
[2018-09-15] MEDS: traMADol HCl 50 MG TAB PO PRN (06:23)
[2018-09-15] MEDS: Benzonatate 100 MG CAP PO PRN (06:23)
--- NOTE | 2018-09-15 07:03 | PDOC.FM ---
- Objective Vital Signs & Weight: Vital Signs (12 hours) Temp Pulse Resp BP BP Pulse Ox 09/15/18 05:56 98.3 F 09/15/18 00:53 98.0 F 99 18 130/72 96 09/14/18 20:00 98.5 F 86 18 130/77 94 L Weight Admit Weight 93.44 kg Weight 93.939 kg I&O: 09/14/18 09/15/18 09/16/18 06:59 06:59 06:59 Intake Total 300 Output Total 250 Balance 50 Result Diagrams: 09/08/18 11:35 09/15/18 05:30 Dx/Plan (1) Acute encephalopathy Code(s): G93.40 - ENCEPHALOPATHY, UNSPECIFIED Status: Acute (2) Adrenal insufficiency Code(s): E27.40 - UNSPECIFIED ADRENOCORTICAL INSUFFICIENCY Status: Chronic (3) CKD (chronic kidney disease) stage 3, GFR 30-59 ml/min Status: Chronic (4) Hypokalemia Code(s): E87.6 - HYPOKALEMIA Status: Acute (5) Hypomagnesemia Code(s): E83.42 - HYPOMAGNESEMIA Status: Acute (6) Morbid obesity with BMI of 40.0-44.9, adult Code(s): E66.01 - MORBID (SEVERE) OBESITY DUE TO EXCESS CALORIES; Z68.41 - BODY MASS INDEX (BMI) 40.0-44.9, ADULT Status: Chronic (7) Prostate cancer Code(s): C61 - MALIGNANT NEOPLASM OF PROSTATE Status: Chronic - Plan Plan: 68 yo gentleman with pmhx of AI who was a direct admission from clinic for hypotension and near syncope. Hypotension, resolved-> suspect 2/2 adrenal insufficiency as was not taking meds consistently - hypovolemia vs infection vs adrenal insuffiency - pt also endorsed "episodes" of near syncope, of note he had an echo 04/2018 which showed a normal EF - he has recurrent episodes of n/v which likely contributes to his hypertension , he was not able to tolerate his po steroids on admission - from an infectious standpoint, he has been afebrile, and procal negative - UCx, BCx no growth to date Decreased PO intake, recurrent - with recurrent hypokalemia, hypomagnesemia - episodes of nausea and vomiting with some intermittent epigastric pain - ordered dietitian and speech consults, rec'd shakes, ST eval and ok'd diet - plan to have access to ensure shakes upon d/c - trying to wean off of meds, poly-pharmacy likely contributing - added reglan scheduled to assist with motility Epigastric/chest pain on 09/09 -episode of brief epigastric pain o/v - GI consulted, thinking infection vs steroid induced esophagitis vs motiliity delay 2/2 DM - s/p EGD, told he has a hiatal hernia but no other obvious etiology for his pain, however pain controlled currently on tramadol prn - troponin x1 near baseline, no ekg changes, deemed non-cardiac - continue PPI, reglan - GI signed off Adrenal insufficiency 2/2 chronic steroid use - Transition back to PO hydrocortisone - 10mg hydrocortisone AM, 5 at noon and 5pm Hypokalemia - Continue to replete -Ordered daily supplementation Hypomagnesemia- -ordered daily supplemenation Hypophosphatemia- - daily supplementation Hypothyroidism- -tsh wnl HTN- resolved Seizure disorder - Continue Phenytoin CAD - tropx1 near baseline, most likely demand - Episode of chest pain with nausea 09/09. No EKG changes, negative troponin unclear etiology, but deemed non-cardiac s/p Renal transplant - Continue home meds DMII - Lantus 10u HS - Moderate SSI & Hypoglycemic protocol - Changed to regular diet to promote nutrition. - Accuchecks ACHS HLD- - pt on atorvastatin 10mg daily GERD- - pt on pantoprazole daily COPD- - pt on albuterol prn shortness of breath Hx of HSV encephalitis - aware Prostate Cancer - History of Mets - communicated w/ Dr. Coon, rec'd outpt f/u Disposition: Stable for d/c awaiting placement Addendum - Attending - Attending Attestation Date/Time: 09/15/18 0809 I personally evaluated the patient and discussed the management with Dr. Samuels. I agree with the History, Examination, Assessment and Plan documented above with any addition or exceptions noted below. Patient overall stable this morning. Having some neck and back pain and just got some medication for that, hopeful it will improve his pain. He is otherwise doing about the same. Labs overall stable, K somewhat low and will replete. Continue to work on placement for patient and continue therapy while here.
[2018-09-15] MEDS: HYDROcodone/Acetaminophen 5/325 mg Tablet PO PRN (09:14)
[2018-09-15] MEDS: Amlodipine 5 MG TAB PO SCH (09:14)
--- NOTE | 2018-09-15 09:27 | PDOC.EVN ---
Event Note - Event Note Event Note: Called to bedside for eval of abd pain Patient just had episode of emesis upon provider's arrival States he is feeling somewhat better after vomiting, had not had anything for breakfast s/p EGD last week, GI states this could be a motlility issues Chagned reglan to scheduled Patient states he has had BM yesterday and is passing flatulence states BMs are clear liquid and not sufficient normal bowel sounds, not distended, non-tender to palpation ordered fleet enema
[2018-09-15] MEDS ORDERED: Fleet Enema 133 ML BOT PR SCH (09:30)
[2018-09-15] MEDS: Tacrolimus 0.5 MG CAP PO SCH ×2 (10:39→20:52)
[2018-09-15] MEDS: Digoxin 0.125 MG TAB PO SCH (10:39)
[2018-09-15] MEDS: Mycophenolate 250 MG CAP PO SCH ×2 (10:40→20:51)
[2018-09-15] MEDS: Folic Acid 1 MG TAB PO SCH (10:40)
[2018-09-15] MEDS: Calcitriol 0.25 MCG CAP PO SCH (10:40)
[2018-09-15] MEDS: Gabapentin 300 MG CAP PO SCH (10:40)
[2018-09-15] MEDS: Bumetanide 1 MG TAB PO SCH (10:40)
[2018-09-15] MEDS: Allopurinol 100 MG TAB PO SCH (10:41)
[2018-09-15] MEDS: Metoclopramide HCl 10 MG TAB PO SCH ×3 (10:41→20:52)
[2018-09-15] MEDS: Atorvastatin Calcium 10 MG TAB PO SCH (10:41)
[2018-09-15] MEDS: Magnesium Oxide 400 MG TAB PO SCH ×2 (10:41→20:51)
[2018-09-15] MEDS: Enoxaparin Sodium 40 MG/0.4 ML SYRINGE SC SCH (10:43)
[2018-09-15] MEDS: Ondansetron ODT 4 MG TAB PO PRN (10:47)
[2018-09-15] MEDS ORDERED: Metoclopramide HCl 10 MG/2 ML VIAL IVP SCH (12:15)
[2018-09-15] MEDS ORDERED: Hydrocortisone Sod Succ/PF 100 mg/2 ml Vial IVP SCH (12:15)
[2018-09-15] MEDS: Hydrocortisone 10 mg Tablet PO SCH ×3 (12:38→18:38)
[2018-09-15] MEDS ORDERED: Bisacodyl 10 MG SUPP PR PRN (18:31)
[2018-09-15] MEDS: Insulin Glargine 10 UNITS in Pre-Filled Syringe 1 EACH SC SCH (20:52)
--- NOTE | 2018-09-15 21:33 | PRG ---
DATE OF SERVICE: 09/15/2018 SUBJECTIVE: Mr. Joseph had an episode of vomiting this morning. Throughout the rest of the morning and this afternoon he had no further vomiting or nausea, no abdominal pain. In light of the recurrent vomiting when he was about ready to go home, GI was asked to follow up for any further recommendations. He was restarted on Reglan scheduled. OBJECTIVE: VITAL SIGNS: Temperature 99.3, pulse 88, blood pressure 111/70. GENERAL: He is in no acute distress. He is awake and alert, oriented x3. LUNGS: Clear to auscultation bilaterally. HEART: Regular rate and rhythm without murmur. ABDOMEN: Soft, nontender, nondistended. Bowel sounds are present. EXTREMITIES: No lower extremity edema. LABORATORY DATA: White blood cell count 7.0, hemoglobin 8.5, platelets 204, creatinine 0.6, albumin 2.3. IMPRESSION: Recurrent nausea and vomiting. This afternoon, he has no ongoing nausea or pain. He did have one episode of vomiting this morning. He had EGD a few days ago that showed a small hiatal hernia, slight distal esophageal ring, but otherwise no obstructing lesions to explain the nausea or pain that he has had previously. He has had recurrent admissions with nausea and vomiting, perhaps related to his adrenal insufficiency and medications. He did have delayed gastric emptying secondary to diabetes mellitus. Now it is not the best time to do a gastric emptying scan while he is acutely ill in the hospital. I do think it is reasonable to go ahead and treat empirically, however, at this time. RECOMMENDATIONS: 1. I agree with scheduled metoclopramide at the current dosing 10 mg three times daily by mouth. 2. This could be continued over the next 3-4 weeks and we can see if this helps reduce his recurrent hospitalizations. 3. Recommend minimizing opioid pain medications as these will also delay gastric emptying. 4. Continue proton pump inhibitor for now. 5. He has had a CT scan in July and June of his abdomen and pelvis. He has had ultrasound of his abdomen in April. Endoscopy is negative. No mechanical lesion is identified as a source for his nausea and vomiting. 6. We will continue to follow his clinical progress. Job ID: [id number]
[2018-09-16] MEDS: HYDROcodone/Acetaminophen 5/325 mg Tablet PO PRN (04:15)
[2018-09-16] MEDS: Benzonatate 100 MG CAP PO PRN (04:16)
[2018-09-16 04:57] LABS: ALT (SGPT) 12 U/L (8-55); AST (SGOT) 15 U/L (5-34); Albumin 2.3 g/dL (3.4-4.8); Alkaline Phosphatase 128 U/L (40-150); Anion Gap 10 mmol/L (10-20); BUN (Urea Nitrogen) 11 mg/dL (8.4-25.7); Bilirubin, Total 0.5 mg/dL (0.2-1.2); Calc. Creatinine Clearance 145 mL/min (70-130); Calcium 8.8 mg/dL (7.8-10.44); Carbon Dioxide 31 mmol/L (23-31); Chloride 96 mmol/L (98-107); Estimated GFR-MDRD Greater than 90; Globulin 2.7 g/dL (2.4-3.5); Glucose 94 mg/dL (80-115); Potassium 3.2 mmol/L (3.5-5.1); Sodium 134 mmol/L (136-145)
--- NOTE | 2018-09-16 08:15 | PDOC.EVN ---
Addendum - Attending - Attending Attestation Date/Time: 09/16/18 0531 I personally evaluated the patient and discussed the management with Dr. Samuels. I agree with the History, Examination, Assessment and Plan documented is his progress note with any addition or exceptions noted below. Patient reports doing well this morning. Had some nausea and vomiting yesterday that he reports happens sometimes with his morning meds. We have gone through and changed some meds that may be causing him some morning nausea. His labs are stable. I have been told he was accepted for placement yesterday and will work to make that happen today. GI re-eval yesterday and no changes made other than agreeing with scheduled Reglan.
[2018-09-16] MEDS ORDERED: Allopurinol 300 MG TAB PO SCH (09:00)
[2018-09-16] MEDS: Atorvastatin Calcium 10 MG TAB PO SCH (09:05)
[2018-09-16] MEDS: Digoxin 0.125 MG TAB PO SCH (09:06)
[2018-09-16] MEDS: Magnesium Oxide 400 MG TAB PO SCH (09:06)
[2018-09-16] MEDS: Gabapentin 300 MG CAP PO SCH (09:06)
[2018-09-16] MEDS: Amlodipine 5 MG TAB PO SCH (09:06)
[2018-09-16] MEDS: Folic Acid 1 MG TAB PO SCH (09:06)
[2018-09-16] MEDS: Metoclopramide HCl 10 MG TAB PO SCH (09:07)
[2018-09-16] MEDS: Calcitriol 0.25 MCG CAP PO SCH (09:07)
[2018-09-16] MEDS: Tacrolimus 0.5 MG CAP PO SCH (09:08)
[2018-09-16] MEDS: Bumetanide 1 MG TAB PO SCH (09:08)
[2018-09-16] MEDS: Hydrocortisone 10 mg Tablet PO SCH ×2 (09:08→12:27)
[2018-09-16] MEDS: Enoxaparin Sodium 40 MG/0.4 ML SYRINGE SC SCH (09:09)
[2018-09-16] MEDS: Mycophenolate 250 MG CAP PO SCH (09:11)
--- NOTE | 2018-09-16 09:15 | PDOC.FM ---
- Subjective Subjective: Patient reports no N/V yesterday afternoon. He states he slept well overnight and tolerated supper well. The patient denies any pain this morning. He is still not feeling like sitting up in the chair much. He is not looking forward to continued PT/OT but discussed the necessity of this. - Objective Vital Signs & Weight: Vital Signs (12 hours) Temp Pulse Resp BP BP Pulse Ox 09/16/18 08:00 97.9 F 75 18 136/74 09/16/18 04:00 98.6 F 87 20 144/70 H 90 L 09/16/18 00:00 97.8 F 97 18 147/82 H 93 L Weight Admit Weight 93.44 kg Weight 93.894 kg Result Diagrams: 09/08/18 11:35 09/16/18 04:20 Phys Exam - Physical Examination Constitutional: NAD HEENT: moist MMs, sclera anicteric Respiratory: no wheezing, clear to auscultation bilateral Cardiovascular: RRR, no significant murmur, no rub Gastrointestinal: soft, non-tender, no distention, positive bowel sounds Musculoskeletal: no edema, pulses present Neurological: non-focal, moves all 4 limbs Psychiatric: normal affect, A&O x 3 Skin: no rash, cap refill <2 seconds Dx/Plan (1) Acute encephalopathy Code(s): G93.40 - ENCEPHALOPATHY, UNSPECIFIED Status: Acute (2) Adrenal insufficiency Code(s): E27.40 - UNSPECIFIED ADRENOCORTICAL INSUFFICIENCY Status: Chronic (3) CKD (chronic kidney disease) stage 3, GFR 30-59 ml/min Status: Chronic (4) Hypokalemia Code(s): E87.6 - HYPOKALEMIA Status: Acute (5) Hypomagnesemia Code(s): E83.42 - HYPOMAGNESEMIA Status: Acute (6) Morbid obesity with BMI of 40.0-44.9, adult Code(s): E66.01 - MORBID (SEVERE) OBESITY DUE TO EXCESS CALORIES; Z68.41 - BODY MASS INDEX (BMI) 40.0-44.9, ADULT Status: Chronic (7) Prostate cancer Code(s): C61 - MALIGNANT NEOPLASM OF PROSTATE Status: Chronic - Plan Plan: 68 yo gentleman with pmhx of AI who was a direct admission from clinic for hypotension and near syncope. Hypotension, resolved-> suspect 2/2 adrenal insufficiency as was not taking meds consistently - hypovolemia vs infection vs adrenal insuffiency - pt also endorsed "episodes" of near syncope, of note he had an echo 04/2018 which showed a normal EF - he has recurrent episodes of n/v which likely contributes to his hypertension , he was not able to tolerate his po steroids on admission - from an infectious standpoint, he has been afebrile, and procal negative - UCx, BCx no growth to date Decreased PO intake, recurrent - with recurrent hypokalemia, hypomagnesemia - episodes of nausea and vomiting with some intermittent epigastric pain - ordered dietitian and speech consults, rec'd shakes, ST eval and ok'd diet - plan to have access to ensure shakes upon d/c - trying to wean off of meds, poly-pharmacy likely contributing - added reglan scheduled to assist with motility - GI re-eval 09/16 rec'd reglan for 1 month and avoid opiates, suspects motility disorder, gastric emptying study when not acutely ill Epigastric/chest pain on 09/09 -episode of brief epigastric pain o/v - GI consulted, thinking infection vs steroid induced esophagitis vs motiliity delay 2/2 DM - s/p EGD, told he has a hiatal hernia but no other obvious etiology for his pain, however pain controlled currently on tramadol prn - troponin x1 near baseline, no ekg changes, deemed non-cardiac - continue PPI, reglan - GI signed off Adrenal insufficiency 2/2 chronic steroid use - Transition back to PO hydrocortisone - 10mg hydrocortisone AM, 5 at noon and 5pm Hypokalemia - Continue to replete -Ordered daily supplementation Hypomagnesemia- -ordered daily supplemenation Hypophosphatemia- - daily supplementation Hypothyroidism- -tsh wnl HTN- resolved Seizure disorder - Continue Phenytoin CAD - tropx1 near baseline, most likely demand - Episode of chest pain with nausea 09/09. No EKG changes, negative troponin unclear etiology, but deemed non-cardiac s/p Renal transplant - Continue home meds DMII - Lantus 10u HS - Moderate SSI & Hypoglycemic protocol - Changed to regular diet to promote nutrition. - Accuchecks ACHS HLD- - pt on atorvastatin 10mg daily GERD- - pt on pantoprazole daily COPD- - pt on albuterol prn shortness of breath Hx of HSV encephalitis - aware Prostate Cancer - History of Mets - communicated w/ Dr. Coon, rec'd outpt f/u Disposition: Stable for d/c awaiting placement
--- NOTE | 2018-09-16 11:34 | DIS ---
DATE OF ADMISSION: 09/07/2018 DATE OF DISCHARGE: 09/16/2018 RESIDENT: Hayes Samuels MD. CONSULT: Gastroenterology, Dr. Stringer. PROCEDURES: Esophagogastroduodenoscopy on 09/10, showed 2 cm hiatal hernia, very slight ring in distal esophagus, dilated, otherwise normal esophagogastroduodenoscopy. PRIMARY DIAGNOSIS: Adrenal insufficiency. SECONDARY DIAGNOSES: 1. Hypotension, resolved. 2. Recurrent vomiting. 3. Hypokalemia. 4. Hypomagnesemia. 5. Hypophosphatemia. 6. Hypothyroidism. 7. Hypertension. 8. Seizure disorder. 9. History of coronary artery disease. 10. Status post renal transplant. 11. Diabetes mellitus type 2. 12. Hyperlipidemia. 13. Chronic obstructive pulmonary disease.. 14. History of HSV encephalitis. 15. Metastatic prostate cancer. DISCHARGE MEDICATIONS: 1. Hydrocodone one tablet every 4 hours p.r.n. please try to limit this medication as much as possible as it slows motility. 2. Magnesium 400 mg b.i.d. 3. Hydrocortisone 10 mg a.m., 5 mg at noon, 5 mg p.m. 4. Reglan 10 mg t.i.d. for one month. 5. Calcitriol. 6. Aspirin. 7. Zofran. 8. Bumetanide 1 mg daily. 9. Lantus 10 units every night. 10. Tacrolimus. 11. Mycophenolate. 12. Zytiga. 13. Amlodipine. 14. Atorvastatin. 15. Colchicine. 16. Digoxin. 17. Folate. 18. Protonix. 19. MiraLAX. Discontinued medications; 1. Tramadol. 2. Gabapentin. 3. Amitriptyline -these medications are all associated with nausea, vomiting, and recommended to have a trial or discontinuation per Gastroenterology. HISTORY OF PRESENT ILLNESS/HOSPITAL COURSE: The patient was seen in [facility] and had hypotensive episodes and thus was sent over to ED for evaluation and ultimately admitted. The patient had known history of adrenal insufficiency along with recurrent nausea and vomiting. He received stress dose of steroids and had resolution of his blood pressure and nausea at the beginning. On 09/09/2018, the patient was transitioned back to oral steroid dosing, but had recurrent nausea, vomiting, and pain. The patient had EKG and troponins at that time to rule out cardiac etiology. On 09/10, severe esophagitis was considered. GI was consulted for evaluation and the patient had esophagogastroduodenoscopy, which was essentially normal as noted above in procedures. The patient's electrolytes were replaced throughout stay. Core Composer Feeder was consulted, who recommended Ensure t.i.d. Speech evaluated the patient and saw no deficit with swallowing. Once placement was obtained at [facility], the patient had another episode of nausea and vomiting after taking his medications. Amitriptyline, tramadol, and gabapentin were discontinued and his Reglan was moved to scheduled from p.r.n. After this, the patient did not have any further episodes of nausea or vomiting for the rest of that day and was ultimately discharged to [facility] on 2018. GI was asked to see the patient before discharge because of the patient's frequent readmissions surrounding this recurrent vomiting and adrenal insufficiency. GI has gastric motility disorder high in the differential, but the patient is not a candidate for gastric emptying study at this time because of his acute illness. Thus, it was decided to continue Reglan for one month and follow up with GI at that time and consider gastric emptying study. Additionally, the patient's chemotherapy medication could be contributing to nausea and vomiting. Discussion with the patient's oncologist, Dr. Coon, will need to ensure about if there are any other medications that could help with the patient's nausea and vomiting, or the patient's goals of care with continued chemotherapy. DISPOSITION: Guarded. DISCHARGE INSTRUCTIONS: 1. Location: [facility]. 2. Diet, regular. 3. Activity as tolerated. FOLLOWUP: The patient will need appointment with Dr. Coon in one week or so to further discuss goals of care and chemotherapy regimen. Dr. Coon has been following along throughout the patient's hospital stay and updated on his status. The patient should continue on Reglan 10 mg t.i.d. for one month and then follow up with GI considering gastric emptying study. Emphasized with the patient and his that the patient absolutely needs to take his steroids every day as scheduled. At the time of discharge, the patient was taking Lantus 10 units a day because of his mildly decreased p.o. intake. The patient should continue on Ensure t.i.d. for now. Please feel free to contact with any questions or concerns. Job ID: [id number] [facility]
[2018-09-16 12:36] VITALS: BMI 31.4
[2018-09-16 12:53] VITALS: BP 123/72; TEMP 98.2
== END 2018-09-16 13:25 | DRG 644 ==
LOC: ERS 14:56 → 2NO 18:28 → T4-A 09-09 18:42
PROVIDERS: ADMIT Emergency Medicine; ATTEND Emergency Medicine
PROC: 0D738ZZ Dilation of Lower Esophagus, Via Natural or Artificial Opening Endoscopic (ICD-10-PCS; principal; 2018-09-10)
DX: E27.40 Unspecified adrenocortical insufficiency (principal); I50.30 Unspecified diastolic (congestive) heart failure; Z94.0 Kidney transplant status; I13.0 Hypertensive heart and chronic kidney disease with heart failure and stage 1 through stage 4 chronic kidney disease, or unspecified chronic kidney disease; J44.1 Chronic obstructive pulmonary disease with (acute) exacerbation; G40.909 Epilepsy, unspecified, not intractable, without status epilepticus; C61 Malignant neoplasm of prostate; G47.33 Obstructive sleep apnea (adult) (pediatric); E11.40 Type 2 diabetes mellitus with diabetic neuropathy, unspecified; M10.9 Gout, unspecified; I25.10 Atherosclerotic heart disease of native coronary artery without angina pectoris; N18.3 Chronic kidney disease, stage 3 (moderate); K21.9 Gastro-esophageal reflux disease without esophagitis; E78.5 Hyperlipidemia, unspecified; E03.9 Hypothyroidism, unspecified; D63.1 Anemia in chronic kidney disease; T38.0X5A Adverse effect of glucocorticoids and synthetic analogues, initial encounter; K44.9 Diaphragmatic hernia without obstruction or gangrene; E87.6 Hypokalemia; E86.0 Dehydration; E83.39 Other disorders of phosphorus metabolism; E83.42 Hypomagnesemia; Z88.0 Allergy status to penicillin; Z91.013 Allergy to seafood; Z88.8 Allergy status to other drugs, medicaments and biological substances; Z79.899 Other long term (current) drug therapy; Z79.4 Long term (current) use of insulin; Z86.61 Personal history of infections of the central nervous system; Z79.52 Long term (current) use of systemic steroids; Z91.048 Other nonmedicinal substance allergy status; Z91.040 Latex allergy status; Z88.6 Allergy status to analgesic agent; Z88.1 Allergy status to other antibiotic agents; Z79.82 Long term (current) use of aspirin
CPT/HCPCS: 36415; 36416; 71045; 80053; 80185; 82533; 82553; 82977; 83735; 83880; 84100; 84145; 84443; 84484; 85025; 93005; 93010; 94760; 96365; J1642; J1650; J1720; J1825; J2704; J2765; J3475; J3480; J7050; J7120; J7507; J7517; J8597; Q0162

== ENCOUNTER 2018-09-19 08:43 | Observation (INO) | payer MEDICARE ==
[2018-09-19 09:49] LABS: #Basophils 0.1 thou/uL (0.0-0.2); #Eosinphils 0.2 thou/uL (0.0-0.7); #Lymphocytes 2.4 thou/uL (1.20-3.40); #Monocytes 0.8 thou/uL (0.11-0.59); #Neutrophils 3.6 thou/uL (1.40-6.50); %Basophils 1.1 % (0.0-1.0); %Eosinophils 2.8 % (0.0-10.0); %Lymphocytes 34.5 % (21.0-51.0); %Monocytes 10.6 % (0.0-10.0); %Neutrophils 50.9 % (42.0-75.0); Hemoglobin 7.9 g/dL (14.0-18.0); Mean Corpuscular HGB CONC 31.5 g/dL (32.0-36.0); Mean Corpuscular Hemoglobin 31.8 pg (27.0-31.0); Mean Platelet Volume 6.9 fL (7.4-10.4); Platelet Count 219 thou/uL (130-400); RBC Distribution Width 17.3 % (11.5-14.5); Red Blood Cell (RBC) Count 2.48 mill/uL (4.70-6.10); White Blood Cell (WBC) Count 7.1 thou/uL (4.8-10.8)
--- NOTE | 2018-09-19 09:49 | RAD ---
PORTABLE CHEST: Date: 09/19/18 HISTORY: Cough. COMPARISON: 09/12/18. FINDINGS: Heart size within normal limits. Left-sided MediPort catheter is present. The lungs are clear of any infiltrative process. IMPRESSION: No active intrathoracic disease. POS: [facility]
[2018-09-19 10:09] LABS: ALT (SGPT) 10 U/L (8-55); AST (SGOT) 18 U/L (5-34); Albumin 2.4 g/dL (3.4-4.8); Alkaline Phosphatase 135 U/L (40-150); Anion Gap 12 mmol/L (10-20); BUN (Urea Nitrogen) 7 mg/dL (8.4-25.7); Bilirubin, Total 0.5 mg/dL (0.2-1.2); Calc. Creatinine Clearance 0 mL/min (70-130); Calcium 8.9 mg/dL (7.8-10.44); Carbon Dioxide 31 mmol/L (23-31); Chloride 96 mmol/L (98-107); Estimated GFR-MDRD Greater than 90; Globulin 2.7 g/dL (2.4-3.5); Glucose 103 mg/dL (80-115); Lipase 10 U/L (8-78); Protein, Total 5.1 g/dL (5.8-8.1); Sodium 136 mmol/L (136-145)
[2018-09-19 10:13] LABS: Potassium 2.8 mmol/L (3.5-5.1)
[2018-09-19] MEDS ORDERED: Acetaminophen 500 MG TAB ONE (10:14)
[2018-09-19] MEDS ORDERED: Ondansetron PF 4 MG/2 ML Vial ONE (10:14)
[2018-09-19 10:26] LABS: CK (CPK) 12 U/L (30-200); Magnesium 1.3 mg/dL (1.6-2.6)
[2018-09-19] MEDS ORDERED: Potassium Chloride 20 MEQ TAB ONE (10:38)
[2018-09-19] MEDS ORDERED: Cefepime 2 GM VIAL ONE (11:25)
[2018-09-19 13:00] LABS: Bilirubin Negative (Negative); Blood, Urine Negative (Negative); Clarity CLEAR (Clear); Glucose, Urine (Dipstick) Negative (Negative); Leukocyte Negative (Negative); Nitrite Negative (Negative); Protein, Urine (Dipstick) Trace mg/dL (Neg-Trace); Specific Gravity, Urine 1.023 (1.002-1.036); Urobilinogen 0.2 mg/dL (0.2-1.0)
--- NOTE | 2018-09-19 13:01 | PDOC.FPRHP ---
- History of Present Illness Chief Complaint: Intractable vomiting History of Present Illness: This is a 68 yo male with a pmh of IDDM, COPD, CAD, ESRD s/p renal transplant on antirejection meds, recent history of herpes encephalitis, who presents to the ed with a CC of intractable vomiting. He reports the vomiting started suddenly and was not relieved by zofran. Pt was unable to take his medications during this time. In addition, the correction reported a temp of 102. Pt denies SOB, chest pain, abdominal pain, or an lesions/sores. He does reports some dysuria. ED Course: Magnesium 2g IV Cefepime 2g IV Vanc 1g IV K 40meq IV zofran 4mg IV NS 1 L Tylenol 1g - Allergies/Adverse Reactions Allergies Allergy/AdvReac Type Severity Reaction Status Date / Time Latex, Natural Rubber Allergy Verified 07/14/18 18:42 morphine Allergy Verified 07/14/18 18:42 NSAIDS (Non-Steroidal Allergy Verified 07/14/18 18:42 Anti-Inflamma Penicillins Allergy Severe Verified 07/14/18 18:42 Hives povidone-iodine Allergy Rash Verified 07/14/18 18:42 [From Betadine] shellfish derived Allergy Verified 07/14/18 18:42 Tetracyclines Allergy Verified 07/14/18 18:42 lisinopril AdvReac Mild COUGHING Verified 07/14/18 18:42 - Home Medications Medication Instructions Recorded Confirmed Type Aspirin [Aspirin EC] 325 mg PO DAILY 02/18/15 09/19/18 History Ondansetron [Zofran ODT] 4 mg PO Q6H PRN #30 tab 08/09/18 09/19/18 Rx Abiraterone Acetate [Zytiga] 1,000 mg PO DAILY #120 tablet 09/03/18 09/19/18 Rx Atorvastatin Calcium [Lipitor] 10 mg PO DAILY #30 tab 09/03/18 09/19/18 Rx Bumetanide [Bumex] 1 mg PO DAILY tab 09/03/18 09/19/18 Rx Colchicine [Colcrys] 0.6 mg PO BID PRN #60 tab 09/03/18 09/19/18 Rx Digoxin [Lanoxin] 0.125 mg PO DAILY #30 tab 09/03/18 09/19/18 Rx Folic Acid [Folvite] 1 mg PO DAILY #30 tab 09/03/18 09/19/18 Rx Mycophenolate [Cellcept] 500 mg PO BID #120 cap 09/03/18 09/19/18 Rx Pantoprazole [Protonix] 40 mg PO DAILY #30 tab 09/03/18 09/19/18 Rx Polyethylene Glycol 3350 [Miralax] 17 gm PO DAILY PRN #1 bot 09/03/18 09/19/18 Rx Tacrolimus 1 mg PO BID #60 capsule 09/03/18 09/19/18 Rx amLODIPine Besylate [Norvasc] 2.5 mg PO DAILY #30 tablet 09/03/18 09/19/18 Rx Allopurinol 300 mg PO DAILY 09/07/18 09/19/18 History Metoprolol Succinate [Toprol XL] 100 tab PO BID 09/07/18 09/19/18 History Phenytoin [Dilantin Suspension] 100 mg PO BID 09/07/18 09/19/18 History HYDROcodone Bit/APAP 5/325 [Castine] 1 tab PO Q4H PRN tab 09/13/18 09/19/18 Rx Magnesium Oxide 400 mg PO BID 30 Days #60 tab 09/13/18 09/19/18 Rx Hydrocortisone [Cortef] 10 mg PO QAM 30 Days #30 tab 09/14/18 09/19/18 Rx Insulin Glargine [Lantus Vial] 10 units SC QAM #0 vial 09/16/18 09/19/18 Rx Metoclopramide HCl [Reglan] 10 mg PO TID 30 Days #90 tab 09/16/18 09/19/18 Rx Abiraterone Acetate [Zytiga] 1,000 mg PO DAILY 09/19/18 09/19/18 History Acetaminophen [Tylenol] 650 mg PO Q6HR PRN 09/19/18 09/19/18 History - History PMHx: COPD, HTN, HLD, ESRD s/p renal transplant, metastatic prostate ca on oral chemo, seixure disorder, HFpEF, IDDMII, adrenal insufficiency PSHx: Renal transplant, hernia x3, choecystectomy FHx: CAD, DMII Social: Denies TAD - Review of Systems General: reports: fever/chills, fatigue. denies: weight/appetite/sleep changes , night sweats Eyes: denies: eye pain, vision changes ENT: denies: nasal congestion, rhinorrhea Respiratory: denies: cough, congestion, shortness of breath, exercise intolerance Cardiovascular: reports: edema. denies: chest pain, palpitation, paroxysmal nocturnal dyspnea Gastrointestinal: reports: nausea, vomiting, diarrhea, abdominal pain ( suprapubic). denies: constipation, GI bleeding Genitourinary: denies: incontinence, dysuria Skin: denies: rashes, lesions Musculoskeletal: denies: pain, tenderness, stiffness Neurological: denies: numbness, syncope Psychological: denies: anxiety, depression - Vital signs BP: 133/71 HR: 78 RR: 16 Tmax: 100.6 Pox: 97% on ra Wt: 90.8 kg - Physical Exam Constitutional: NAD, awake, alert and oriented, well developed HEENT: normocephalic and atraumatic, PERRLA, EOMI, conjunctiva clear, TM's clear and intact, MMM, oropharynx clear Neck: supple, FROM (No nuchal rigity), trachea midline, no JVD Chest: no-tender to palpation, no lesions Heart: RRR, normal S1/S2, no murmurs/rubs/gallops, pulses present Lungs: CTAB, no respiratory distress, good air movement, no wheezing Abdomen: soft, bowel sounds present, no masses/distention, other (suprapubic pain) Musculoskeletal: normal structure, normal tone, ROM grossly normal Neurological: no focal deficit, CN II-XII intact Skin: no rash/lesions, good turgor, capillary refill <2 seconds Heme/Lymphatic: no unusual bruising or bleeding, no purpura Psychiatric: normal mood and affect, good judgment and insight, intact recent and remote memory FMR H&P: Results - Labs Result Diagrams: 09/19/18 09:29 09/19/18 09:29 Lab results: WBC 7.1 thou/uL (4.8-10.8) 09/19/18 09:29 Hgb 7.9 g/dL (14.0-18.0) L 09/19/18 09:29 Hct 25.1 % (42.0-52.0) L 09/19/18 09:29 MCV 101.0 fL (78.0-98.0) H 09/19/18 09:29 Plt Count 219 thou/uL (130-400) 09/19/18 09:29 Neutrophils % 50.9 % (42.0-75.0) 09/19/18 09:29 Sodium 136 mmol/L (136-145) 09/19/18 09:29 Potassium 2.8 mmol/L (3.5-5.1) L* 09/19/18 09:29 Chloride 96 mmol/L (98-107) L 09/19/18 09:29 Carbon Dioxide 31 mmol/L (23-31) 09/19/18 09:29 BUN 7 mg/dL (8.4-25.7) L 09/19/18 09:29 Creatinine 0.67 mg/dL (0.7-1.3) L 09/19/18 09:29 Glucose 103 mg/dL (80-115) 09/19/18 09:29 Lactic Acid 1.1 mmol/L (0.5-2.2) 09/19/18 09:29 Calcium 8.9 mg/dL (7.8-10.44) 09/19/18 09:29 Total Bilirubin 0.5 mg/dL (0.2-1.2) 09/19/18 09:29 AST 18 U/L (5-34) 09/19/18 09:29 ALT 10 U/L (8-55) 09/19/18 09:29 Alkaline Phosphatase 135 U/L (40-150) 09/19/18 09:29 Creatine Kinase 12 U/L (30-200) L 09/19/18 09:29 Serum Total Protein 5.1 g/dL (5.8-8.1) L 09/19/18 09:29 Albumin 2.4 g/dL (3.4-4.8) L 09/19/18 09:29 Lipase 10 U/L (8-78) 09/19/18 09:29 - EKG Interpretation EKG: NSR, 88 bpm, QT/QTc 324/392 - Radiology Interpretation Chest x-ray Status: report reviewed by me (No active intrathoracic disease) FMR H&P: A/P - Problem List (1) fever of unknown source Current Visit: Yes Status: Acute (2) Intractable nausea and vomiting Current Visit: Yes Status: Acute Code(s): R11.2 - NAUSEA WITH VOMITING, UNSPECIFIED (3) Hypokalemia Current Visit: No Status: Acute Code(s): E87.6 - HYPOKALEMIA (4) Hypomagnesemia Current Visit: No Status: Acute Code(s): E83.42 - HYPOMAGNESEMIA (5) Adrenal insufficiency Current Visit: No Status: Chronic Code(s): E27.40 - UNSPECIFIED ADRENOCORTICAL INSUFFICIENCY (6) CAD (coronary artery disease) Current Visit: No Status: Chronic Code(s): I25.10 - ATHSCL HEART DISEASE OF [place] CORONARY ARTERY W/O ANG PCTRS Qualifiers: Coronary Disease-Associated Artery/Lesion type: [place] artery Associated angina: without angina (7) CKD (chronic kidney disease) stage 3, GFR 30-59 ml/min Current Visit: No Status: Chronic (8) COPD (chronic obstructive pulmonary disease) Current Visit: No Status: Chronic Qualifiers: COPD type: COPD with acute exacerbation Qualified Code(s): J44.1 - Chronic obstructive pulmonary disease with (acute) exacerbation (9) GERD (gastroesophageal reflux disease) Current Visit: No Status: Chronic Code(s): K21.9 - GASTRO-ESOPHAGEAL REFLUX DISEASE WITHOUT ESOPHAGITIS (10) Hx of kidney transplant Current Visit: No Status: Chronic (11) Hyperlipidemia Current Visit: No Status: Chronic Code(s): E78.5 - HYPERLIPIDEMIA, UNSPECIFIED (12) IDDM (insulin dependent diabetes mellitus) Current Visit: No Status: Chronic Code(s): E11.9 - TYPE 2 DIABETES MELLITUS WITHOUT COMPLICATIONS; Z79.4 - NURSING HOME (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 OF INSULIN (13) Normocytic anemia Current Visit: No Status: Chronic Code(s): D64.9 - ANEMIA, UNSPECIFIED - Plan This is a 68 yo male with a pmh of IDDM, COPD, CAD, ESRD s/p renal transplant on antirejection meds, recent history of herpes encephalitis Fever of unknown source -Admit to tele obs -VSS stable, procal >2 with no evidence of a source -CXR negative, UA negative -Pending CT abdomen and plevis -No nuchal rigidity -Given immunocompromised, broad spectrum abx Intractable nausea/vomiting -Zofran PRN -Check C diff and stool studies Hypokalemia -Replacing -Repeat BMP -Losses likely due to GI losses -Mag low, replace Adrenal insufficiency -Cortisol 1.5, giving stress dose of decadron -Continue home dose of steroids Metastatic prostate cancer -Continue home meds -Consider hospice conversation HTN -Continue home meds HLD -Continue home meds IDDM -Continue home lantus -Mild SSI, achs accuchecks COPD -Continue home meds Code: Full Prophylaxis: lovenox Family: at bedside and plan discussed with her Diet: Heart healthy CC 2000 calories PCP: Josephine Christina MD Disposition: correction in 1-2 days FMR H&P: Upper Level - Pertinent history 68 yo M w/ PMH of ESRD s/p renal transplant on chronic immunosuppressive therapy , metaastatic prostate ca on oral chemotherapy and followed by dr tena and recent hospitalization with herpes encephalitis presnts for cc of NV and abdominal pain. Pt reports symptoms started this AM. Denies fever, although rectal temp in ED measured @ 100.6. He denies cough, congestion, dysuria, sob, cp. Does report diarrhea which has been chronic and associated nausea and vomiting. In ed pts potassium found to be low and was given po K+ 20mEq. Additionally, for fever, pt given broad spectrum abx including cefepime and vanc. ROS otherwise negative except for pertinent pos listed above, see commander internal affairs ROS for complete ROS. - Pertinent findings PE Gen: NAD resting comfortably in bed HEENT: NCAT, PERRLA, EOMI, TM clear w/o bulging or erythema, pharync w/o erythema or exudates CV: RRR No MRG Respiratory: Lungs CTA bl, no wheezing rales or rhonchi Abd: Soft ND BSX4, mild suprapubic TTP Extremities: moving all, no clubbing cyanosis or edema Neuro: No focal deficit, negative kernig/brudzinski - Plan Date/Time: 09/19/18 1300 I, Aravind Howe DO, have evaluated this patient and agree with findings/ plan as outlined by commander internal affairs resident. Pertinent changes/additions are listed here. 1) Fever of unknown source, immunocompromised pt: - pt had rectal temp 100.6 in ED although vitals signs have been stable - procalcitonin >2 and no source - CXR negative and UA negative for evidence of infection - given s/s will do CT abd pelvis - of note pt had NO nuchal rigidity and neg kernig/brudzinski 2) Intractable NV - will rx IV zofran prn - pt profoundly hypokalemic which in itself may manifest as GI symptoms; however in context of elevated procalcitonin, will do CT abd/pelvis for further evlautation and cont pt on broad spectrum abx - check c diff studies, check stool studies 3) Hypokalemia: - replace - possibly 2/2 urinary losses with diuretic use vs GI losses vs mineralocorticoid effects of chronic steroid use - Mag low as well, will replace - daily BMP, trend 4) Adrenal insufficiency - check cortisol - given pt hypokalemic, possibly 2/2 steroids use vs renal/GI losses - consider stress dose steroids although this will likely decrease K+, avoid steroids with high mineralocorticoid effect - cont home steroids regimen 5) Met prostate cancer: cont home medications PPX: Lovenox Code Status: Full PCP: Josephine Christina MD Addendum - Attending - Attending Attestation Date/Time: 09/19/182041 I personally evaluated the patient and discussed the management with Dr. Rosa /Carley I agree with the History, Examination, Assessment and Plan documented above with any addition or exceptions noted below.
[2018-09-19] MEDS ORDERED: Dextrose 50% Abboject 50 ML SYRINGE SLOW IVP PRN (13:28)
[2018-09-19] MEDS ORDERED: Dextrose 5% in Water 1,000 ML IV PRN (13:28)
[2018-09-19] MEDS ORDERED: HumaLOG 300 UNITS/3 ML VIAL SC PRN ×2 (13:28)
[2018-09-19] MEDS ORDERED: Acetaminophen 325 MG TAB PO PRN ×2 (13:28→15:55)
[2018-09-19 13:45] VITALS: BMI 29.5
[2018-09-19] MEDS ORDERED: Magnesium 2 GM/50 ML 2 GM in Premix Bag 1 BAG IVPB SCH (15:15)
[2018-09-19] MEDS ORDERED: Potassium Chloride 20 MEQ TAB PO SCH (15:15)
[2018-09-19] MEDS ORDERED: ISOVUE-370 76%-LOCM 1 ML ONE (15:47)
[2018-09-19] MEDS ORDERED: Ondansetron PF 4 MG/2 ML Vial IVP PRN (15:53)
[2018-09-19] MEDS ORDERED: Colchicine 0.6 MG TAB PO PRN (15:55)
[2018-09-19] MEDS ORDERED: Polyethylene Glycol 3350 17 GM Packet PO PRN (15:55)
[2018-09-19 16:56] LABS: Digoxin 0.86 ng/mL (0.8-2.0)
[2018-09-19] MEDS ORDERED: Dexamethasone 4 mg/ml Vial SLOW IVP SCH (17:00)
[2018-09-19] MEDS: Metoclopramide HCl 10 MG TAB PO SCH (20:26)
[2018-09-19] MEDS: Mycophenolate 250 MG CAP PO SCH (20:26)
[2018-09-19] MEDS: Magnesium Oxide 400 MG TAB PO SCH (20:26)
[2018-09-19] MEDS: Tacrolimus 0.5 MG CAP PO SCH (20:26)
--- NOTE | 2018-09-19 20:45 | PDOC.EVN ---
Event Note - Event Note Event Note: Discussed pt's iodine allergy of rash with scrubbing topical iodine with radiology. Pt can still receive IV contrast. Will notify nursing staff to send pt for CT.
[2018-09-19] MEDS: Ondansetron ODT 4 MG TAB PO PRN (20:46)
[2018-09-19] MEDS: HYDROcodone/Acetaminophen 5/325 mg Tablet PO PRN (22:09)
--- NOTE | 2018-09-19 23:13 | CT ---
FCT abdomen and pelvis with IV contrast. Oral contrast was not administered. INDICATIONS: Abdominal pain COMPARISON: CT abdomen and pelvis 08/02/2018 FINDINGS: Lung bases are clear Liver, spleen, and pancreas appear unremarkable. Stomach and duodenum appear unremarkable. Adrenal glands appear normal. Atrophic kidneys are again noted. Right hydronephrotic kidney is again seen and is stable as previous ly described. There is a transplanted kidney in the right pelvis which shows function and enhancement. No hydroneph rosis involving this transplant kidney. Small bowel loops are normal caliber and exhibit normal fold pattern. Appendix is identified and appears unremarkable. Diverticulosis of the sigmoid colon again noted. No evidence of diverticulitis. Aorta is normal caliber. No evidence of retroperitoneal or mesenteric adenopathy. Surgical clips in the pelvis consistent with prostatectomy. The visualized osseous structures show abnormal mottled density with areas of mottled sclerosis throu ghout the visualized vertebra and pelvis. There are also focal lytic areas within the vertebral calos s. The osseous findings are stable. There is a history of prostate cancer in this patient and the fin dings suggest bony metastasis. IMPRESSION: 1. No acute intra-abdominal process. The abdominal findings noted above are stable. Abnormal osseous structures suggesting metastatic disease is stable.
[2018-09-19] MEDS: Vancomycin HCl 1.5 GM in Sodium Chloride 0.9% 250 ML 300 ML IVPB SCH (23:19)
[2018-09-20] MEDS: Cefepime 2 GM in Sodium Chloride 0.9% 100 ML IVPB SCH ×2 (01:39→12:11)
[2018-09-20 05:45] LABS: Anion Gap 13 mmol/L (10-20); BUN (Urea Nitrogen) 8 mg/dL (8.4-25.7); Calc. Creatinine Clearance 138 mL/min (70-130); Calcium 8.7 mg/dL (7.8-10.44); Carbon Dioxide 27 mmol/L (23-31); Chloride 100 mmol/L (98-107); Estimated GFR-MDRD Greater than 90; Glucose 152 mg/dL (80-115); Potassium 3.7 mmol/L (3.5-5.1); Sodium 136 mmol/L (136-145)
[2018-09-20 06:02] LABS: Band 2 % (5-11); Hemoglobin 7.4 g/dL (14.0-18.0); Lymphocytes 23 % (21-51); MDiff Complete? YES; Mean Corpuscular HGB CONC 31.7 g/dL (32.0-36.0); Mean Corpuscular Hemoglobin 32.1 pg (27.0-31.0); Mean Platelet Volume 7.1 fL (7.4-10.4); Monocytes 3 % (0-10); Neutrophil 72 % (42-75); Platelet Count 202 thou/uL (130-400); RBC Distribution Width 17.4 % (11.5-14.5); Red Blood Cell (RBC) Count 2.29 mill/uL (4.70-6.10)
--- NOTE | 2018-09-20 06:08 | PDOC.FM ---
- Subjective Subjective: Pt reports one episode of nausea overnight relieved by zofran. He denies fever or chills. He reports trying to eat some overnight with little success. He denies abdominal pain, sob, cp, or dysuria. He reports one episode of diarrhea overnight. - Objective MAR Reviewed: Yes Vital Signs & Weight: Vital Signs (12 hours) Temp Pulse Resp BP Pulse Ox 09/20/18 05:10 96 F L 84 18 135/67 96 09/19/18 23:19 80 18 124/68 99 09/19/18 19:05 98.4 F 95 12 128/61 100 Weight Weight 90.86 kg I&O: 09/18/18 09/19/18 09/20/18 06:59 06:59 06:59 Intake Total 550 Balance 550 Result Diagrams: 09/20/18 05:10 09/20/18 05:10 Phys Exam - Physical Examination Constitutional: NAD HEENT: moist MMs Neck: supple, full ROM Respiratory: no wheezing, no rales, clear to auscultation bilateral Cardiovascular: RRR, no significant murmur, no rub Gastrointestinal: soft, non-tender, no distention, positive bowel sounds Musculoskeletal: pulses present mild edema with tenderness to palpation Neurological: normal sensation, moves all 4 limbs Psychiatric: normal affect, A&O x 3 Skin: normal turgor, cap refill <2 seconds Dx/Plan (1) fever of unknown source Status: Acute (2) Intractable nausea and vomiting Code(s): R11.2 - NAUSEA WITH VOMITING, UNSPECIFIED Status: Acute (3) Hypokalemia Code(s): E87.6 - HYPOKALEMIA Status: Acute (4) Hypomagnesemia Code(s): E83.42 - HYPOMAGNESEMIA Status: Acute (5) Adrenal insufficiency Code(s): E27.40 - UNSPECIFIED ADRENOCORTICAL INSUFFICIENCY Status: Chronic (6) CAD (coronary artery disease) Code(s): I25.10 - ATHSCL HEART DISEASE OF [place] CORONARY ARTERY W/O ANG PCTRS Status: Chronic Qualifiers: Coronary Disease-Associated Artery/Lesion type: [place] artery Associated angina: without angina (7) CKD (chronic kidney disease) stage 3, GFR 30-59 ml/min Status: Chronic (8) COPD (chronic obstructive pulmonary disease) Status: Chronic Qualifiers: COPD type: COPD with acute exacerbation Qualified Code(s): J44.1 - Chronic obstructive pulmonary disease with (acute) exacerbation (9) GERD (gastroesophageal reflux disease) Code(s): K21.9 - GASTRO-ESOPHAGEAL REFLUX DISEASE WITHOUT ESOPHAGITIS Status: Chronic (10) Hx of kidney transplant Status: Chronic (11) Hyperlipidemia Code(s): E78.5 - HYPERLIPIDEMIA, UNSPECIFIED Status: Chronic (12) IDDM (insulin dependent diabetes mellitus) Code(s): E11.9 - TYPE 2 DIABETES MELLITUS WITHOUT COMPLICATIONS; Z79.4 - [facility] (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 OF INSULIN Status: Chronic (13) Normocytic anemia Code(s): D64.9 - ANEMIA, UNSPECIFIED Status: Chronic - Plan Plan: This is a 68 yo male with a pmh of IDDM, COPD, CAD, ESRD s/p renal transplant on antirejection meds, recent history of herpes encephalitis Fever of unknown source -Admit to tele obs -VSS stable, procal >2 with no evidence of a source, afebrile overnight -CXR negative, UA negative -CT abd/pelvic negative for acute findings -No nuchal rigidity -Given immunocompromised, broad spectrum abx vanc/cefepime (09/19) Intractable nausea/vomiting, improving -Zofran PRN -C diff antigen positive, toxin negative symptoms not consistent with c diff Hypokalemia -Normal today -Continue to monitor -Losses likely due to GI losses Adrenal insufficiency -S/P stress dose of steroids, continue home dose of steroids Metastatic prostate cancer -Continue home meds -Consider hospice conversation HTN -Continue home meds HLD -Continue home meds IDDM -Continue home lantus -Mild SSI, achs accuchecks COPD -Continue home meds
[2018-09-20] MEDS: Enoxaparin Sodium 40 MG/0.4 ML SYRINGE SC SCH (08:32)
[2018-09-20] MEDS: Hydrocortisone 10 mg Tablet PO SCH (08:34)
[2018-09-20] MEDS: Insulin Glargine 10 UNITS in Pre-Filled Syringe SC SCH (08:34)
[2018-09-20] MEDS: Digoxin 0.125 MG TAB PO SCH (08:35)
[2018-09-20] MEDS: Bumetanide 1 MG TAB PO SCH (08:35)
[2018-09-20] MEDS: Tacrolimus 0.5 MG CAP PO SCH ×2 (08:35→20:47)
[2018-09-20] MEDS: Atorvastatin Calcium 10 MG TAB PO SCH (08:36)
[2018-09-20] MEDS: Aspirin 325 mg Enteric Coated Tablet PO SCH (08:36)
[2018-09-20] MEDS: Mycophenolate 250 MG CAP PO SCH ×2 (08:36→20:48)
[2018-09-20] MEDS: Amlodipine 5 MG TAB PO SCH (08:36)
[2018-09-20] MEDS: Magnesium Oxide 400 MG TAB PO SCH ×2 (08:37→20:47)
[2018-09-20] MEDS: Folic Acid 1 MG TAB PO SCH (08:37)
[2018-09-20] MEDS: Metoclopramide HCl 10 MG TAB PO SCH ×3 (08:37→20:47)
[2018-09-20] MEDS: Allopurinol 300 MG TAB PO SCH (08:37)
[2018-09-20] MEDS ORDERED: (Abiraterone Acetate [Zytiga] 1,000 MG) PO SCH (09:00)
[2018-09-20] MEDS: Vancomycin HCl 1.5 GM in Sodium Chloride 0.9% 250 ML 300 ML IVPB SCH ×2 (10:20→23:59)
--- NOTE | 2018-09-20 12:05 | PRG ---
DATE OF SERVICE: 09/20/2018 SUBJECTIVE: Mr. Joseph is a 68-year-old man, well known to our service. He was admitted with intractable vomiting, not relieved by Zofran. He also had a fever upon admission. This morning, he looks and feels much better. His blood cultures are currently no growth. His stool studies are negative for Campylobacter, negative for shiga toxin, and negative for fecal lactoferrin. Also negative for Giardia and Cryptosporidium. His C diff antigen is positive, but toxin is negative. Stool culture shows normal enteric growth currently. He is afebrile and otherwise normal vital signs. Likely ready for discharge in 1 or 2 days. Job ID: [id number]
[2018-09-20] MEDS: HYDROcodone/Acetaminophen 5/325 mg Tablet PO PRN (21:58)
[2018-09-21] MEDS: Cefepime 2 GM in Sodium Chloride 0.9% 100 ML IVPB SCH ×2 (01:48→15:01)
[2018-09-21 03:57] LABS: Vancomycin, Trough 23.3 ug/mL
[2018-09-21 05:44] LABS: Anion Gap 10 mmol/L (10-20); BUN (Urea Nitrogen) 7 mg/dL (8.4-25.7); Calc. Creatinine Clearance 142 mL/min (70-130); Calcium 8.6 mg/dL (7.8-10.44); Carbon Dioxide 27 mmol/L (23-31); Chloride 102 mmol/L (98-107); Estimated GFR-MDRD Greater than 90; Glucose 76 mg/dL (80-115); Sodium 136 mmol/L (136-145)
--- NOTE | 2018-09-21 06:26 | PDOC.FM ---
- Subjective Subjective: Pt states he did well overnight. He had 3 BMs yesterday and none last night. He denies nausea and vomiting today as well as fever or chills. He reports his sugar has been controlled since he has been here. - Objective MAR Reviewed: Yes Vital Signs & Weight: Vital Signs (12 hours) Temp Pulse Resp BP Pulse Ox 09/21/18 04:16 98.1 F 68 12 128/63 100 09/21/18 00:14 97.7 F 76 18 126/67 94 L 09/20/18 19:24 98.4 F 78 16 131/58 L 96 Weight Weight 90.537 kg I&O: 09/19/18 09/20/18 09/21/18 06:59 06:59 06:59 Intake Total 550 850 Balance 550 850 Result Diagrams: 09/21/18 07:31 09/21/18 04:25 Phys Exam - Physical Examination Constitutional: NAD HEENT: moist MMs Neck: supple, full ROM Respiratory: no wheezing, no rales Cardiovascular: RRR, no significant murmur, no rub Gastrointestinal: soft, non-tender, no distention, positive bowel sounds Musculoskeletal: no edema, pulses present Neurological: moves all 4 limbs Psychiatric: normal affect, A&O x 3 Skin: cap refill <2 seconds Dx/Plan (1) fever of unknown source Status: Acute (2) Intractable nausea and vomiting Code(s): R11.2 - NAUSEA WITH VOMITING, UNSPECIFIED Status: Acute (3) Hypokalemia Code(s): E87.6 - HYPOKALEMIA Status: Acute (4) Hypomagnesemia Code(s): E83.42 - HYPOMAGNESEMIA Status: Acute (5) Adrenal insufficiency Code(s): E27.40 - UNSPECIFIED ADRENOCORTICAL INSUFFICIENCY Status: Chronic (6) CAD (coronary artery disease) Code(s): I25.10 - ATHSCL HEART DISEASE OF [place] CORONARY ARTERY W/O ANG PCTRS Status: Chronic Qualifiers: Coronary Disease-Associated Artery/Lesion type: [place] artery Associated angina: without angina (7) CKD (chronic kidney disease) stage 3, GFR 30-59 ml/min Status: Chronic (8) COPD (chronic obstructive pulmonary disease) Status: Chronic Qualifiers: COPD type: COPD with acute exacerbation Qualified Code(s): J44.1 - Chronic obstructive pulmonary disease with (acute) exacerbation (9) GERD (gastroesophageal reflux disease) Code(s): K21.9 - GASTRO-ESOPHAGEAL REFLUX DISEASE WITHOUT ESOPHAGITIS Status: Chronic (10) Hx of kidney transplant Status: Chronic (11) Hyperlipidemia Code(s): E78.5 - HYPERLIPIDEMIA, UNSPECIFIED Status: Chronic (12) IDDM (insulin dependent diabetes mellitus) Code(s): E11.9 - TYPE 2 DIABETES MELLITUS WITHOUT COMPLICATIONS; 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 Status: Chronic (13) Normocytic anemia Code(s): D64.9 - ANEMIA, UNSPECIFIED Status: Chronic - Plan Plan: This is a 68 yo male with a pmh of IDDM, COPD, CAD, ESRD s/p renal transplant on antirejection meds, recent history of herpes encephalitis Fever of unknown source -Admit to tele obs -VSS stable, procal >2 with no evidence of a source, afebrile overnight -CXR negative, UA negative -CT abd/pelvic negative for acute findings -No nuchal rigidity -Given immunocompromised, broad spectrum abx vanc/cefepime (09/19) Intractable nausea/vomiting, improving -Zofran PRN -C diff antigen positive, toxin negative symptoms not consistent with c diff Hypokalemia -Normal today -Continue to monitor -Losses likely due to GI losses -Trying pepto bisthmol and oral potassium in gatorade today, pending tolerance Adrenal insufficiency -S/P stress dose of steroids, continue home dose of steroids Metastatic prostate cancer -Continue home meds -Consider hospice conversation HTN -Continue home meds HLD -Continue home meds IDDM -Continue home lantus -Mild SSI, achs accuchecks COPD -Continue home meds
[2018-09-21 07:51] LABS: #Eosinphils 0.2 thou/uL (0.0-0.7); #Lymphocytes 1.7 thou/uL (1.20-3.40); #Monocytes 0.5 thou/uL (0.11-0.59); #Neutrophils 3.5 thou/uL (1.40-6.50); %Basophils 0.2 % (0.0-1.0); %Eosinophils 4.1 % (0.0-10.0); %Lymphocytes 28.3 % (21.0-51.0); %Monocytes 8.2 % (0.0-10.0); %Neutrophils 59.2 % (42.0-75.0); Hemoglobin 7.2 g/dL (14.0-18.0); Mean Corpuscular HGB CONC 32.2 g/dL (32.0-36.0); Mean Corpuscular Hemoglobin 32.1 pg (27.0-31.0); Mean Corpuscular Volume 99.4 fL (78.0-98.0); Mean Platelet Volume 7.9 fL (7.4-10.4); Platelet Count 217 thou/uL (130-400); RBC Distribution Width 18.2 % (11.5-14.5); Red Blood Cell (RBC) Count 2.23 mill/uL (4.70-6.10); White Blood Cell (WBC) Count 5.8 thou/uL (4.8-10.8)
[2018-09-21] MEDS: Potassium Chloride 20 MEQ/100 ML PREMIX BAG IVPB SCH ×3 (10:12→19:04)
[2018-09-21] MEDS: Enoxaparin Sodium 40 MG/0.4 ML SYRINGE SC SCH (10:14)
[2018-09-21] MEDS: Pepto Bismol Chew TAB PO PRN (10:20)
[2018-09-21] MEDS: Allopurinol 300 MG TAB PO SCH (10:23)
[2018-09-21] MEDS: Digoxin 0.125 MG TAB PO SCH (10:23)
[2018-09-21] MEDS: Atorvastatin Calcium 10 MG TAB PO SCH (10:24)
[2018-09-21] MEDS: Magnesium Oxide 400 MG TAB PO SCH ×2 (10:25→20:52)
[2018-09-21] MEDS: Folic Acid 1 MG TAB PO SCH (10:25)
[2018-09-21] MEDS: Mycophenolate 250 MG CAP PO SCH ×2 (10:25→20:52)
[2018-09-21] MEDS: Amlodipine 5 MG TAB PO SCH (10:26)
[2018-09-21] MEDS: Aspirin 325 mg Enteric Coated Tablet PO SCH (10:26)
[2018-09-21] MEDS: Metoclopramide HCl 10 MG TAB PO SCH ×3 (10:26→20:53)
[2018-09-21] MEDS: Insulin Glargine 10 UNITS in Pre-Filled Syringe SC SCH (10:28)
[2018-09-21] MEDS: Hydrocortisone 10 mg Tablet PO SCH (10:28)
[2018-09-21] MEDS: Tacrolimus 0.5 MG CAP PO SCH ×2 (10:29→20:54)
[2018-09-21] MEDS: Bumetanide 1 MG TAB PO SCH (10:41)
--- NOTE | 2018-09-21 12:17 | PRG ---
DATE OF SERVICE: 09/21/2018 SUBJECTIVE: Mr. Joseph is cheerful this morning. He is awake in bed and alert. We have cultured urine blood done; chest x-ray confined no source of infection. He is on broad-spectrum antibiotics. He is nearing time where he can likely be discharged for followup at the [facility]. Job ID: [id number]
[2018-09-21] MEDS: Vancomycin HCl 1 GM in Premix Bag 1 BAG IVPB SCH ×2 (12:23→23:18)
[2018-09-21] MEDS: Ondansetron ODT 4 MG TAB PO PRN (13:24)
[2018-09-21 15:41] LABS: Anion Gap 10 mmol/L (10-20); BUN (Urea Nitrogen) 6 mg/dL (8.4-25.7); Calc. Creatinine Clearance 135 mL/min (70-130); Calcium 8.5 mg/dL (7.8-10.44); Carbon Dioxide 27 mmol/L (23-31); Chloride 101 mmol/L (98-107); Estimated GFR-MDRD Greater than 90; Glucose 195 mg/dL (80-115); Sodium 135 mmol/L (136-145)
[2018-09-21] MEDS: HYDROcodone/Acetaminophen 5/325 mg Tablet PO PRN (21:03)
[2018-09-22] MEDS: Cefepime 2 GM in Sodium Chloride 0.9% 100 ML IVPB SCH (00:21)
--- NOTE | 2018-09-22 06:13 | PDOC.FM ---
- Subjective Subjective: Pt states he did well overnight. He did try liquid potassium in gatorade with no improvement in nausea. He states that he is tired of being in and out of the hospital and he just wants to go home. - Objective MAR Reviewed: Yes Vital Signs & Weight: Vital Signs (12 hours) Temp Pulse Resp BP Pulse Ox 09/22/18 04:12 98.1 F 82 18 133/63 99 09/21/18 23:18 98.2 F 88 15 126/60 99 09/21/18 20:28 98.8 F 75 21 H 126/63 96 Weight Weight 90.537 kg I&O: 09/20/18 09/21/18 09/22/18 06:59 06:59 06:59 Intake Total 550 1090 1700 Output Total 300 425 Balance 937 944 2874 Result Diagrams: 09/22/18 06:10 09/22/18 06:10 Phys Exam - Physical Examination Constitutional: NAD Neck: supple, full ROM Respiratory: no wheezing, clear to auscultation bilateral Cardiovascular: RRR, no significant murmur Gastrointestinal: soft, positive bowel sounds Musculoskeletal: pulses present, edema present Neurological: moves all 4 limbs Psychiatric: normal affect, A&O x 3 Skin: cap refill <2 seconds Dx/Plan (1) fever of unknown source Status: Acute (2) Intractable nausea and vomiting Code(s): R11.2 - NAUSEA WITH VOMITING, UNSPECIFIED Status: Acute (3) Hypokalemia Code(s): E87.6 - HYPOKALEMIA Status: Acute (4) Hypomagnesemia Code(s): E83.42 - HYPOMAGNESEMIA Status: Acute (5) Adrenal insufficiency Code(s): E27.40 - UNSPECIFIED ADRENOCORTICAL INSUFFICIENCY Status: Chronic (6) CAD (coronary artery disease) Code(s): I25.10 - ATHSCL HEART DISEASE OF [place] CORONARY ARTERY W/O ANG PCTRS Status: Chronic Qualifiers: Coronary Disease-Associated Artery/Lesion type: [place] artery Associated angina: without angina (7) CKD (chronic kidney disease) stage 3, GFR 30-59 ml/min Status: Chronic (8) COPD (chronic obstructive pulmonary disease) Status: Chronic Qualifiers: COPD type: COPD with acute exacerbation Qualified Code(s): J44.1 - Chronic obstructive pulmonary disease with (acute) exacerbation (9) GERD (gastroesophageal reflux disease) Code(s): K21.9 - GASTRO-ESOPHAGEAL REFLUX DISEASE WITHOUT ESOPHAGITIS Status: Chronic (10) Hx of kidney transplant Status: Chronic (11) Hyperlipidemia Code(s): E78.5 - HYPERLIPIDEMIA, UNSPECIFIED Status: Chronic (12) IDDM (insulin dependent diabetes mellitus) Code(s): E11.9 - TYPE 2 DIABETES MELLITUS WITHOUT COMPLICATIONS; Z79.4 - 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 Status: Chronic (13) Normocytic anemia Code(s): D64.9 - ANEMIA, UNSPECIFIED Status: Chronic - Plan Plan: This is a 68 yo male with a pmh of IDDM, COPD, CAD, ESRD s/p renal transplant on antirejection meds, recent history of herpes encephalitis Fever of unknown source -VSS stable, procal >2 with no evidence of a source, afebrile overnight -CXR negative, UA negative -CT abd/pelvic negative for acute findings -No nuchal rigidity -Blood cultures are negative, deescalating antibiotics Intractable nausea/vomiting, improving -Zofran PRN -C diff antigen positive, toxin negative symptoms not consistent with c diff Hypokalemia -Normal today -Continue to monitor -Losses likely due to GI losses -Trying pepto bisthmol and oral potassium in gatorade Adrenal insufficiency -S/P stress dose of steroids, continue home dose of steroids Metastatic prostate cancer -Continue home meds -Consider hospice conversation HTN -Continue home meds HLD -Continue home meds IDDM -Continue home lantus -Mild SSI, achs accuchecks COPD -Continue home meds
[2018-09-22 06:30] LABS: #Basophils 0.1 thou/uL (0.0-0.2); #Eosinphils 0.3 thou/uL (0.0-0.7); #Lymphocytes 1.8 thou/uL (1.20-3.40); #Monocytes 0.5 thou/uL (0.11-0.59); #Neutrophils 2.7 thou/uL (1.40-6.50); %Basophils 1.2 % (0.0-1.0); %Lymphocytes 33.8 % (21.0-51.0); Hemoglobin 7.2 g/dL (14.0-18.0); Mean Corpuscular HGB CONC 31.4 g/dL (32.0-36.0); Mean Corpuscular Hemoglobin 31.7 pg (27.0-31.0); Mean Platelet Volume 7.2 fL (7.4-10.4); Platelet Count 202 thou/uL (130-400); RBC Distribution Width 17.6 % (11.5-14.5); Red Blood Cell (RBC) Count 2.28 mill/uL (4.70-6.10); White Blood Cell (WBC) Count 5.4 thou/uL (4.8-10.8)
[2018-09-22 06:54] LABS: Anion Gap 10 mmol/L (10-20); BUN (Urea Nitrogen) 6 mg/dL (8.4-25.7); Calc. Creatinine Clearance 147 mL/min (70-130); Calcium 8.9 mg/dL (7.8-10.44); Carbon Dioxide 27 mmol/L (23-31); Chloride 102 mmol/L (98-107); Estimated GFR-MDRD Greater than 90; Glucose 101 mg/dL (80-115); Potassium 3.4 mmol/L (3.5-5.1); Sodium 136 mmol/L (136-145)
[2018-09-22] MEDS: HYDROcodone/Acetaminophen 5/325 mg Tablet PO PRN ×2 (09:12→20:39)
[2018-09-22] MEDS: Atorvastatin Calcium 10 MG TAB PO SCH (09:13)
[2018-09-22] MEDS: Magnesium Oxide 400 MG TAB PO SCH ×2 (09:13→20:39)
[2018-09-22] MEDS: Digoxin 0.125 MG TAB PO SCH (09:13)
[2018-09-22] MEDS: Folic Acid 1 MG TAB PO SCH (09:13)
[2018-09-22] MEDS: Metoclopramide HCl 10 MG TAB PO SCH ×3 (09:13→20:39)
[2018-09-22] MEDS: Allopurinol 300 MG TAB PO SCH (09:14)
[2018-09-22] MEDS: Amlodipine 5 MG TAB PO SCH (09:14)
[2018-09-22] MEDS: Aspirin 325 mg Enteric Coated Tablet PO SCH (09:14)
[2018-09-22] MEDS: Hydrocortisone 10 mg Tablet PO SCH (09:14)
[2018-09-22] MEDS: Bumetanide 1 MG TAB PO SCH (09:14)
[2018-09-22] MEDS: Potassium Chloride 20 MEQ TAB PO SCH ×2 (09:15→17:54)
[2018-09-22] MEDS: Mycophenolate 250 MG CAP PO SCH ×2 (09:15→20:39)
[2018-09-22] MEDS: Pepto Bismol Chew TAB PO PRN (09:16)
[2018-09-22] MEDS: Tacrolimus 0.5 MG CAP PO SCH ×2 (09:16→20:40)
[2018-09-22] MEDS: Insulin Glargine 10 UNITS in Pre-Filled Syringe SC SCH (09:17)
[2018-09-22] MEDS: Ondansetron ODT 4 MG TAB PO PRN (09:28)
[2018-09-22] MEDS: Enoxaparin Sodium 40 MG/0.4 ML SYRINGE SC SCH (09:28)
--- NOTE | 2018-09-22 11:22 | PRG ---
DATE OF SERVICE: 09/22/2018 Mr. Joseph is resting quietly in bed, in no distress. All of his cultures have returned negative. He is afebrile. He will be discharged today following a Palliative Care consult regarding future care in a intermediate or home. Job ID: [id number]
[2018-09-22] MEDS: Potassium Chloride 20 MEQ/100 ML PREMIX BAG IVPB SCH ×3 (14:13→18:52)
[2018-09-22 17:34] LABS: Anion Gap 13 mmol/L (10-20); BUN (Urea Nitrogen) 6 mg/dL (8.4-25.7); Calc. Creatinine Clearance 132 mL/min (70-130); Carbon Dioxide 23 mmol/L (23-31); Chloride 102 mmol/L (98-107); Estimated GFR-MDRD Greater than 90; Glucose 159 mg/dL (80-115); Potassium 4.1 mmol/L (3.5-5.1); Sodium 134 mmol/L (136-145)
[2018-09-23 05:46] LABS: Anion Gap 11 mmol/L (10-20); BUN (Urea Nitrogen) 5 mg/dL (8.4-25.7); Calc. Creatinine Clearance 140 mL/min (70-130); Calcium 9.1 mg/dL (7.8-10.44); Carbon Dioxide 27 mmol/L (23-31); Chloride 102 mmol/L (98-107); Estimated GFR-MDRD Greater than 90; Glucose 104 mg/dL (80-115); Potassium 3.6 mmol/L (3.5-5.1); Sodium 136 mmol/L (136-145)
[2018-09-23 06:20] LABS: #Basophils 0.1 thou/uL (0.0-0.2); #Eosinphils 0.3 thou/uL (0.0-0.7); #Monocytes 0.6 thou/uL (0.11-0.59); #Neutrophils 2.9 thou/uL (1.40-6.50); %Basophils 0.9 % (0.0-1.0); %Eosinophils 5.1 % (0.0-10.0); %Lymphocytes 34.2 % (21.0-51.0); %Monocytes 9.6 % (0.0-10.0); %Neutrophils 50.3 % (42.0-75.0); Hemoglobin 7.4 g/dL (14.0-18.0); Mean Corpuscular HGB CONC 31.8 g/dL (32.0-36.0); Mean Corpuscular Hemoglobin 31.7 pg (27.0-31.0); Mean Corpuscular Volume 99.6 fL (78.0-98.0); Mean Platelet Volume 7.1 fL (7.4-10.4); Platelet Count 202 thou/uL (130-400); RBC Distribution Width 17.4 % (11.5-14.5); Red Blood Cell (RBC) Count 2.35 mill/uL (4.70-6.10); White Blood Cell (WBC) Count 5.9 thou/uL (4.8-10.8)
--- NOTE | 2018-09-23 06:26 | PDOC.FM ---
- Subjective Subjective: Pt was having some nausea this morning after orange juice. He states he did well overnight otherwise. He states that he wants to go home. He denies diarrhea overnight. - Objective MAR Reviewed: Yes Vital Signs & Weight: Vital Signs (12 hours) Temp Pulse Resp BP Pulse Ox 09/23/18 04:43 99.3 F 79 20 127/58 L 97 09/22/18 20:33 99 F 77 16 124/59 L 99 Weight Weight 87.906 kg I&O: 09/21/18 09/22/18 09/23/18 06:59 06:59 06:59 Intake Total 1090 2340 600 Output Total 300 425 300 Balance 790 1915 300 Result Diagrams: 09/23/18 06:03 09/23/18 04:55 Phys Exam - Physical Examination Constitutional: NAD HEENT: moist MMs Neck: supple, full ROM Respiratory: no wheezing, no rales, clear to auscultation bilateral Cardiovascular: RRR, no significant murmur Gastrointestinal: soft, non-tender, no distention, positive bowel sounds Musculoskeletal: pulses present, edema present (2+ pitting to knee) Neurological: normal sensation, moves all 4 limbs Psychiatric: normal affect, A&O x 3 Skin: cap refill <2 seconds Dx/Plan (1) fever of unknown source Status: Acute (2) Intractable nausea and vomiting Code(s): R11.2 - NAUSEA WITH VOMITING, UNSPECIFIED Status: Acute (3) Hypokalemia Code(s): E87.6 - HYPOKALEMIA Status: Acute (4) Hypomagnesemia Code(s): E83.42 - HYPOMAGNESEMIA Status: Acute (5) Adrenal insufficiency Code(s): E27.40 - UNSPECIFIED ADRENOCORTICAL INSUFFICIENCY Status: Chronic (6) CAD (coronary artery disease) Code(s): I25.10 - ATHSCL HEART DISEASE OF [place] CORONARY ARTERY W/O ANG PCTRS Status: Chronic Qualifiers: Coronary Disease-Associated Artery/Lesion type: [place] artery Associated angina: without angina (7) CKD (chronic kidney disease) stage 3, GFR 30-59 ml/min Status: Chronic (8) COPD (chronic obstructive pulmonary disease) Status: Chronic Qualifiers: COPD type: COPD with acute exacerbation Qualified Code(s): J44.1 - Chronic obstructive pulmonary disease with (acute) exacerbation (9) GERD (gastroesophageal reflux disease) Code(s): K21.9 - GASTRO-ESOPHAGEAL REFLUX DISEASE WITHOUT ESOPHAGITIS Status: Chronic (10) Hx of kidney transplant Status: Chronic (11) Hyperlipidemia Code(s): E78.5 - HYPERLIPIDEMIA, UNSPECIFIED Status: Chronic (12) IDDM (insulin dependent diabetes mellitus) Code(s): E11.9 - TYPE 2 DIABETES MELL[place] WITHOUT COMPLICATIONS; 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 Status: Chronic (13) Normocytic anemia Code(s): D64.9 - ANEMIA, UNSPECIFIED Status: Chronic - Plan Plan: This is a 68 yo male with a pmh of IDDM, COPD, CAD, ESRD s/p renal transplant on antirejection meds, recent history of herpes encephalitis Fever of unknown source -VSS stable, procal >2 with no evidence of a source, afebrile overnight -CXR negative, UA negative -CT abd/pelvic negative for acute findings -No nuchal rigidity -Blood cultures are negative, deescalating antibiotics Intractable nausea/vomiting, improving -Zofran PRN -C diff antigen positive, toxin negative symptoms not consistent with c diff -Trying accupressure points for nausea Hypokalemia -Normal today -Continue to monitor -Continue to replace PO and IV Adrenal insufficiency -S/P stress dose of steroids, continue home dose of steroids Metastatic prostate cancer -Continue home meds -Consulted palliative care on 09/22 to discuss goals of care and potentially hospice HTN -Continue home meds HLD -Continue home meds IDDM -Continue home lantus -Mild SSI, achs accuchecks COPD -Continue home meds
[2018-09-23] MEDS ORDERED: Potassium Chloride 20 MEQ/100 ML PREMIX BAG IVPB SCH (08:00)
[2018-09-23] MEDS: Allopurinol 300 MG TAB PO SCH (09:21)
[2018-09-23] MEDS: Potassium Chloride 20 MEQ TAB PO SCH (09:21)
[2018-09-23] MEDS: Atorvastatin Calcium 10 MG TAB PO SCH (09:22)
[2018-09-23] MEDS: Amlodipine 5 MG TAB PO SCH (09:22)
[2018-09-23] MEDS: Aspirin 325 mg Enteric Coated Tablet PO SCH (09:22)
[2018-09-23] MEDS: Digoxin 0.125 MG TAB PO SCH (09:22)
[2018-09-23] MEDS: Enoxaparin Sodium 40 MG/0.4 ML SYRINGE SC SCH (09:23)
[2018-09-23] MEDS: Folic Acid 1 MG TAB PO SCH (09:23)
[2018-09-23] MEDS: Mycophenolate 250 MG CAP PO SCH (09:23)
[2018-09-23] MEDS: Tacrolimus 0.5 MG CAP PO SCH (09:23)
[2018-09-23] MEDS: Hydrocortisone 10 mg Tablet PO SCH (09:23)
[2018-09-23] MEDS: Magnesium Oxide 400 MG TAB PO SCH (09:23)
[2018-09-23] MEDS: Metoclopramide HCl 10 MG TAB PO SCH ×2 (09:23→16:02)
[2018-09-23] MEDS: Pepto Bismol Chew TAB PO PRN (09:24)
[2018-09-23] MEDS: Insulin Glargine 10 UNITS in Pre-Filled Syringe SC SCH (09:25)
[2018-09-23] MEDS: Bumetanide 1 MG TAB PO SCH (09:41)
[2018-09-23] MEDS: Ondansetron ODT 4 MG TAB PO PRN (09:45)
[2018-09-23] MEDS: Potassium Chloride 20 MEQ in Premix Bag 1 BAG IVPB SCH ×2 (10:43→13:32)
--- NOTE | 2018-09-23 11:17 | PRG ---
DATE OF SERVICE: 09/23/2018 SUBJECTIVE: Mr. Joseph is fine this morning. He is even cheerful. He is anxious to go home. We were making arrangements for palliative care and home health care. Otherwise, clinically unchanged. Job ID: [id number]
[2018-09-23 16:26] VITALS: BP 148/72; TEMP 98.7
--- NOTE | 2018-09-24 14:03 | DIS ---
DATE OF ADMISSION: 09/19/2018 DATE OF DISCHARGE: 09/23/2018 ADMITTING ATTENDING: Dr. Sedrick Jc. DISCHARGING ATTENDING: Dr. Pal Urbano. RESIDENT: Hayden Rosa DO CONSULTS: None. PROCEDURES: 1. Chest x-ray showing no active intrathoracic disease. 2. Abdominal CT with contrast showed no acute intraabdominal process with abnormal osseous structures suggesting metastatic disease that is stable. PRIMARY DIAGNOSES: Fever of unknown source, intractable nausea and vomiting, hypokalemia, and hypomagnesemia. SECONDARY DIAGNOSES: Adrenal insufficiency, metastatic prostate cancer, hypertension, hyperlipidemia, insulin-dependent diabetes, and chronic obstructive pulmonary disease. DISCHARGE MEDICATIONS: 1. Potassium chloride 20 mEq t.i.d. with meals. 2. Zytiga 1000 mg p.o. daily. 3. Tylenol 650 mg p.o. q.6 hours. 4. Allopurinol 300 mg p.o. daily. 5. Amlodipine 2.5 mg p.o. daily. 6. Aspirin 325 mg p.o. daily. 7. Atorvastatin 10 mg p.o. daily. 8. Pepto-Bismol one tab q.6 hours p.o. p.r.n. nausea and vomiting. 9. Bumex 1 mg p.o. daily. 10. Colchicine 0.6 mg p.o. b.i.d. p.r.n. gout flare. 11. Digoxin 0.125 mg p.o. daily. 12. Folic acid 1 mg p.o. daily. 13. Gabapentin 900 mg p.o. at bedtime, 300 mg p.o. q.a.m. 14. [place] 5 one tab p.o. q.4 hours. 15. Hydrocortisone 10 mg p.o. daily. 16. Insulin glargine 10 units subcu q.a.m. 17. Magnesium oxide 400 mg p.o. b.i.d. 18. Reglan 10 mg p.o. t.i.d. 19. Metoprolol 100 mg p.o. b.i.d. 20. Mycophenolate 500 mg p.o. b.i.d. 21. Zofran 4 mg p.o. q.6 hours p.r.n. nausea. 22. Protonix 40 mg p.o. daily. 23. Phenytoin 100 mg p.o. daily. 24. MiraLAX 1 packet p.o. daily. 25. Tacrolimus 0.5 mg p.o. b.i.d. DISCONTINUED MEDICATIONS: None. BRIEF HISTORY OF PRESENT ILLNESS/HOSPITAL COURSE: This is a 68-year-old male with past medical history as above, presented with fever of 100.6 and nausea and vomiting. The patient was unable to take his medicine during this time of nausea and vomiting, which may have exacerbated this issue. In addition, the patient had a potassium of 2.8 on admission, likely secondary to his chronic steroid use versus gastric losses. The patient was admitted and given IV potassium and IV magnesium as well as a stress dose of steroids. The patient's nausea resolved within the day. The patient was stable for discharge. The patient is coming from [facility] and they were unable to accept him immediately and required insurance authorization and PT consult. The patient remained in the hospital stable for the next few days awaiting that. During this time, I personally had conversations with the patient regarding hospice and regarding palliative care. By the end of his stay, it appears the patient was willing to have a Hospice conversation. The patient has been in hospital multiple times for nausea, vomiting, and hypokalemia. Our few explanations for this could be, 1. Zytiga, anti-cancer medications causing some of his nausea. 2. 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 These are only suspicions and are not confirmed by any evidence. DISPOSITION: Guarded. DISCHARGE INSTRUCTIONS: 1. Location: Home with home health. 2. Activity: As tolerated. 3. Diet: As tolerated. 4. Followup: With Dr. Josephine Christina in one week and with [facility]. Job ID: [id number]
== END 2018-09-23 16:38 | disposition home or self-care (01) ==
LOC: ERS 08:43 → 2SW 11:25
PROVIDERS: ADMIT Family Medicine; ATTEND Family Medicine
DX: R50.9 Fever, unspecified (principal); R11.2 Nausea with vomiting, unspecified; E87.6 Hypokalemia; E83.42 Hypomagnesemia; E27.40 Unspecified adrenocortical insufficiency; C61 Malignant neoplasm of prostate; E78.5 Hyperlipidemia, unspecified; I25.10 Atherosclerotic heart disease of native coronary artery without angina pectoris; I13.2 Hypertensive heart and chronic kidney disease with heart failure and with stage 5 chronic kidney disease, or end stage renal disease; E11.22 Type 2 diabetes mellitus with diabetic chronic kidney disease; N18.6 End stage renal disease; I50.30 Unspecified diastolic (congestive) heart failure; J44.1 Chronic obstructive pulmonary disease with (acute) exacerbation; K21.9 Gastro-esophageal reflux disease without esophagitis; D63.1 Anemia in chronic kidney disease; Z88.0 Allergy status to penicillin; Z88.1 Allergy status to other antibiotic agents; Z88.5 Allergy status to narcotic agent; Z88.8 Allergy status to other drugs, medicaments and biological substances; Z91.013 Allergy to seafood; Z91.040 Latex allergy status; Z91.048 Other nonmedicinal substance allergy status; Z79.4 Long term (current) use of insulin; Z79.82 Long term (current) use of aspirin; Z79.899 Other long term (current) drug therapy; Z94.0 Kidney transplant status
CPT/HCPCS: 71045; 74177; 80048 ×6; 80053; 80162; 80185; 80202; 81003; 82533; 82550; 82962 ×5; 83605; 83630; 83690; 83735; 84145 ×2; 84484; 85025 ×5; 87040; 87045; 87046; 87324; 87328; 87329; 87449 ×2; 87493; 87804 ×2; 87899 ×2; 93005; 96361; 96365; 96366 ×4; 96367 ×2; 96372 ×4; 96375 ×2; 97110; 97139 ×3; 97530 ×2; 99285; G0378 ×3; 36416; J0692; J1100; J1610; J1650; J1825; J2405; J3370; J3475; J3480; J7050; J7507; J7517; J8597; Q0162; Q9966

== ENCOUNTER 2018-10-01 15:12 | Inpatient (IN) | payer MEDICARE ==
[2018-10-01 17:18] LABS: Hemoglobin 9.2 g/dL (14.0-18.0); Mean Corpuscular HGB CONC 30.4 g/dL (32.0-36.0); Mean Corpuscular Hemoglobin 31.3 pg (27.0-31.0); Mean Platelet Volume 8.6 fL (7.4-10.4); Platelet Count 171 thou/uL (130-400); RBC Distribution Width 18.8 % (11.5-14.5); Red Blood Cell (RBC) Count 2.93 mill/uL (4.70-6.10)
[2018-10-01 17:38] LABS: ALT (SGPT) 9 U/L (8-55); AST (SGOT) 18 U/L (5-34); Albumin 2.6 g/dL (3.4-4.8); Alkaline Phosphatase 253 U/L (40-150); Anion Gap 15 mmol/L (10-20); BUN (Urea Nitrogen) 17 mg/dL (8.4-25.7); Bilirubin, Total 0.4 mg/dL (0.2-1.2); CK (CPK) 25 U/L (30-200); Calc. Creatinine Clearance 0 mL/min (70-130); Calcium 8.3 mg/dL (7.8-10.44); Carbon Dioxide 22 mmol/L (23-31); Chloride 104 mmol/L (98-107); Estimated GFR-MDRD 84; Globulin 2.6 g/dL (2.4-3.5); Glucose 182 mg/dL (80-115); Lipase 13 U/L (8-78); Potassium 6.3 mmol/L (3.5-5.1); Protein, Total 5.2 g/dL (5.8-8.1); Sodium 135 mmol/L (136-145)
[2018-10-01 17:42] LABS: Anisocytosis SLIGHT = 6-15 cells (100X) (0-5/hpf); Band 4 % (5-11); Eosinophils 1 % (0-10); Hypochromia SLIGHT = 6-15 cells (100X) (0-5/hpf); Lymphocytes 35 % (21-51); MDiff Complete? YES; Macrocytosis SLIGHT = 6-15 cells (100X) (0-5/hpf); Monocytes 8 % (0-10); Neutrophil 51 % (42-75); Platelet Morphology Comment Appears Adequate
--- NOTE | 2018-10-01 17:43 | RAD ---
CHEST 1 VIEW: Date: 10/01/18 HISTORY: Altered mental status. COMPARISON: Radiograph dated 09/19/18. FINDINGS: Port-A-Cath is in place with tip at the cavoatrial junction. Heart size upper limits of normal. Chronic scarring left costophrenic sulcus. No pneumothorax. No acute osseous abnormality. Right upper quadrant surgical clips. IMPRESSION: 1. Unchanged exam without acute intrathoracic abnormality. 2. Osseous sclerosis suggesting metastatic disease is similar. POS: [facility]
[2018-10-01 19:13] LABS: Anion Gap 16 mmol/L (10-20); Calcium 8.4 mg/dL (7.8-10.44); Carbon Dioxide 22 mmol/L (23-31); Chloride 107 mmol/L (98-107); Potassium 6.5 mmol/L (3.5-5.1); Sodium 138 mmol/L (136-145)
[2018-10-01 19:31] LABS: BUN (Urea Nitrogen) 17 mg/dL (8.4-25.7); Calc. Creatinine Clearance 0 mL/min (70-130); Estimated GFR-MDRD 80; Glucose 160 mg/dL (80-115)
[2018-10-01] MEDS ORDERED: Dextrose 50% Abboject 50 ML SYRINGE ONE (21:01)
[2018-10-01] MEDS ORDERED: Insulin Regular 300 UNITS/3 ML VIAL ONE (21:01)
--- NOTE | 2018-10-01 21:09 | PDOC.FPRHP ---
- History of Present Illness Chief Complaint: AMS History of Present Illness: Mr. Joseph is a 68 yo please AAM who is brought in by EMS for AMS. 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 Per , patient has been more lethargic the past few days and reports "not feeling well." In addition he had acute onset muscle twitching of his lips and upper limbs. She states this has happened before when he was diagnosed with seizures. In the ED patient was found to have potassium of 6.5. Patient was recently hospitalized a few weeks ago for hypokalemia 2/2 to GI losses and has been on KDur 20mEq TID. Per EMS report POC glucose was "low " and so also received D5 in ED. Most of history is given by due to mental status of patient. She says at baseline he is usually A&O x3 but with recent hospitalizations has declined. She denies any other recent sxs, seizures, emesis, diarrhea. - Allergies/Adverse Reactions Allergies Allergy/AdvReac Type Severity Reaction Status Date / Time Latex, Natural Rubber Allergy Verified 07/14/18 18:42 morphine Allergy Verified 07/14/18 18:42 NSAIDS (Non-Steroidal Allergy Verified 07/14/18 18:42 Anti-Inflamma Penicillins Allergy Severe Verified 07/14/18 18:42 Hives povidone-iodine Allergy Rash Verified 07/14/18 18:42 [From Betadine] shellfish derived Allergy Verified 07/14/18 18:42 Tetracyclines Allergy Verified 07/14/18 18:42 lisinopril AdvReac Mild COUGHING Verified 07/14/18 18:42 - Home Medications Medication Instructions Recorded Confirmed Type Aspirin [Aspirin EC] 325 mg PO DAILY 02/18/15 09/19/18 History Ondansetron [Zofran ODT] 4 mg PO Q6H PRN #30 tab 08/09/18 09/19/18 Rx Abiraterone Acetate [Zytiga] 1,000 mg PO DAILY #120 tablet 09/03/18 09/19/18 Rx Atorvastatin Calcium [Lipitor] 10 mg PO DAILY #30 tab 09/03/18 09/19/18 Rx Bumetanide [Bumex] 1 mg PO DAILY tab 09/03/18 09/19/18 Rx Colchicine 0.6 mg PO BID PRN #60 tab 09/03/18 09/19/18 Rx Digoxin [Lanoxin] 0.125 mg PO DAILY #30 tab 09/03/18 09/19/18 Rx Folic Acid [Folvite] 1 mg PO DAILY #30 tab 09/03/18 09/19/18 Rx Mycophenolate [Cellcept] 500 mg PO BID #120 cap 09/03/18 09/19/18 Rx Pantoprazole [Protonix] 40 mg PO DAILY #30 tab 09/03/18 09/19/18 Rx Polyethylene Glycol 3350 [Miralax] 17 gm PO DAILY PRN #1 bot 09/03/18 09/19/18 Rx Tacrolimus 1 mg PO BID #60 capsule 09/03/18 09/19/18 Rx amLODIPine Besylate [Norvasc] 2.5 mg PO DAILY #30 tablet 09/03/18 09/19/18 Rx Allopurinol 300 mg PO DAILY 09/07/18 09/19/18 History Metoprolol Succinate [Toprol XL] 100 tab PO BID 09/07/18 09/19/18 History Phenytoin [Dilantin Suspension] 100 mg PO BID 09/07/18 09/19/18 History HYDROcodone Bit/APAP 5/325 [[place]] 1 tab PO Q4H PRN tab 09/13/18 09/19/18 Rx Magnesium Oxide 400 mg PO BID 30 Days #60 tab 09/13/18 09/19/18 Rx Hydrocortisone [Cortef] 10 mg PO QAM 30 Days #30 tab 09/14/18 09/19/18 Rx Insulin Glargine [Lantus Vial] 10 units SC QAM #0 vial 09/16/18 09/19/18 Rx Metoclopramide HCl [Reglan] 10 mg PO TID 30 Days #90 tab 09/16/18 09/19/18 Rx Abiraterone Acetate [Zytiga] 1,000 mg PO DAILY 09/19/18 09/19/18 History Acetaminophen [Tylenol] 650 mg PO Q6HR PRN 09/19/18 09/19/18 History Gabapentin 300 mg PO QAM 09/21/18 09/21/18 History Gabapentin 900 mg PO HS 09/21/18 09/21/18 History Bismuth Subsalicylate 1 tab PO Q2H PRN tablet 09/23/18 Rx [Pepto-Bismol] Potassium Chloride [K-Dur] 20 meq PO TID-WM #90 tab 09/23/18 Rx - History PMHx: Adrenal insuff., metastatic prostate CA on oral chemotherapy, HTN, HLD, IDDM2, COPD, Gout, Seizure disorder, HFpEF PSHx: Renal transplant, hernia x3, cholecystecomy FHx: CAD, DM2 Social: denies t/e/d - Review of Systems General: reports: weight/appetite/sleep changes, fatigue ENT: denies: nasal congestion, rhinorrhea Respiratory: denies: cough Cardiovascular: denies: chest pain Gastrointestinal: denies: vomiting, diarrhea, abdominal pain Musculoskeletal: denies: pain Neurological: denies: seizure - Vital signs BP: 138/70 (Left Arm), Pulse: 90, Resp: 18 (Non-Labored), Pain: utr, O2 sat: 100 on Room Air, Time: 10/01/2018 22:10. - Physical Exam Constitutional: NAD -Constitutional: A&O x3, delirious state HEENT: normocephalic and atraumatic, PERRLA, EOMI Neck: supple, trachea midline Heart: RRR, normal S1/S2 Lungs: CTAB, no respiratory distress Abdomen: soft, non-tender -Musculoskeletal: small brief upper extremity jerks Neurological: no focal deficit -Neurological: 3/5 strength in all extremities Skin: good turgor -Heme/Lymphatic: hyperpigmentation of lower extremities FMR H&P: Results - Labs Result Diagrams: 10/01/18 16:57 10/01/18 18:49 Lab results: WBC 10.0 thou/uL (4.8-10.8) 10/01/18 16:57 Hgb 9.2 g/dL (14.0-18.0) L 10/01/18 16:57 Hct 30.2 % (42.0-52.0) L 10/01/18 16:57 MCV 103.0 fL (78.0-98.0) H 10/01/18 16:57 Plt Count 171 thou/uL (130-400) 10/01/18 16:57 Band Neuts % (Manual) 4 % (5-11) L 10/01/18 16:57 Sodium 138 mmol/L (136-145) 10/01/18 18:49 Potassium 6.5 mmol/L (3.5-5.1) H 10/01/18 18:49 Chloride 107 mmol/L (98-107) 10/01/18 18:49 Carbon Dioxide 22 mmol/L (23-31) L 10/01/18 18:49 BUN 17 mg/dL (8.4-25.7) 10/01/18 18:49 Creatinine 1.10 mg/dL (0.7-1.3) 10/01/18 18:49 Glucose 160 mg/dL (80-115) H 10/01/18 18:49 Calcium 8.4 mg/dL (7.8-10.44) 10/01/18 18:49 Total Bilirubin 0.4 mg/dL (0.2-1.2) 10/01/18 16:57 AST 18 U/L (5-34) 10/01/18 16:57 ALT 9 U/L (8-55) 10/01/18 16:57 Alkaline Phosphatase 253 U/L (40-150) H 10/01/18 16:57 Ammonia 58 umol/L (18-72) 10/01/18 16:57 Creatine Kinase 25 U/L (30-200) L 10/01/18 16:57 Serum Total Protein 5.2 g/dL (5.8-8.1) L 10/01/18 16:57 Albumin 2.6 g/dL (3.4-4.8) L 10/01/18 16:57 Lipase 13 U/L (8-78) 10/01/18 16:57 - EKG Interpretation EKG: inverted T waves of lateroinferior leads which are more pronounced than on EKG from 09/19/[address] elevations - Radiology Interpretation Chest x-ray Status: report reviewed by me Additional comment: osseous structure suggesting metastatic disease FMR H&P: A/P - Problem List (1) Hyperkalemia Current Visit: Yes Status: Acute Code(s): E87.5 - HYPERKALEMIA (2) Acute encephalopathy Current Visit: No Status: Acute Code(s): G93.40 - ENCEPHALOPATHY, UNSPECIFIED (3) Altered mental status Current Visit: No Status: Acute Code(s): R41.82 - ALTERED MENTAL STATUS, UNSPECIFIED (4) Hx of kidney transplant Current Visit: No Status: Chronic (5) Hyperlipidemia Current Visit: No Status: Chronic Code(s): E78.5 - HYPERLIPIDEMIA, UNSPECIFIED (6) Hypothyroid Current Visit: No Status: Chronic Code(s): E03.9 - HYPOTHYROIDISM, UNSPECIFIED (7) IDDM (insulin dependent diabetes mellitus) Current Visit: No Status: Chronic Code(s): E11.9 - TYPE 2 DIABETES MELLITUS WITHOUT COMPLICATIONS; Z79.4 - 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 (8) Morbid obesity with BMI of 40.0-44.9, adult Current Visit: No Status: Chronic Code(s): E66.01 - MORBID (SEVERE) OBESITY DUE TO EXCESS CALORIES; Z68.41 - BODY MASS INDEX (BMI) 40.0-44.9, ADULT (9) Normocytic anemia Current Visit: No Status: Chronic Code(s): D64.9 - ANEMIA, UNSPECIFIED (10) Prostate cancer Current Visit: No Status: Chronic Code(s): C61 - MALIGNANT NEOPLASM OF PROSTATE (11) Seizures Current Visit: No Status: Chronic Code(s): R56.9 - UNSPECIFIED CONVULSIONS (12) Encephalitis due to human herpes simplex virus (HSV) Current Visit: No Status: Suspected Code(s): B00.4 - HERPESVIRAL ENCEPHALITIS - Plan #Acute hyperkalemia, likely iatrogenic -6.5 in ED, no EKG changes -Acute hyperkalemia likely caused by excessive K+ replacement w/ patient's adrenal insufficiency making him more susceptible to rapid serum changes even w / low dose K+ -S/p insulin, kayexalate, no calcium gluconate since on digoxin -Repeat AM BMP, continue cardiac monitoring -Hold home potassium #Acute encephalopathy -Could be precipitated by acute illness/hyperkalemia -Ammonia nml -Will obtain UA #NBA -1.5x inc in baseline, usually <1 -Likely 2/2 from dec PO intake -Start mIVF -Recheck AM BMP #Hypothyroid -Mildly elevated TSH, will check T3/T4 #Adrenal insufficiency -Continue home cortef #IDDM2 -Sliding scale #Macrocytic anemia, chronic -Hb around baseline -Continue home folic acid #Prostate CA w/ mets -Continue oral chemotherapy #Recurrent N/V, chronic -continue home reglan -plans to due outpt gastric emptying study with GI #COPD -duonebs PRN dvt ppx: lovenox gi ppx: pantoprazole code: full dispo: admit inpt tele due to physical help requirements unable to admit to obs Will discuss w/ Dr. Christina FMR H&P: Upper Level - Pertinent history 68 yo AAM with PMH of adrenal insufficiency, ESRD s/p renal transplant on chronic immunosuppresion, IDDM and multiple recent hospitalizations presenting with altered mental status with . 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 Pt's provides majority of history, see advisory intern note. PCP: Dr. Josephine Christina - Pertinent findings VSS Gen: pleasant in NAD CV: RRR Resp: CTAB Neuro: intermittently answers questions appropriately and carries on conversations. Somnolent during interview but arousable. - Plan Date/Time: 10/01/182107 I, Niles Fernandez MD PGY3, have evaluated this patient and agree with findings/ plan as outlined by advisory intern resident. Pertinent changes/additions are listed here. 1. Hyperkalemia likely iatrogenic -Pt presents with some initial concerns of hypoglycemia but on lab workup was found to have a potassium of 6.5. Pt was given insulin and glucose in the ER and can not be given calcium due to taken digoxin. Pt also given kayexalate 30 mg PO. -EKG reveals stable T wave inversions that are possibly slightly more pronounced when compared to previous EKGs. -Will admit pt to telemetry for cardiac monitoring. -Pt recently hospitalized for hypokalemia 2/2 GI loses and given rx for KCl supplementation. Will hold at this time. -Monitor pt's response to Kayexalate and give another dose, possible with lactulose if pt does not have BM. -Repeat labs in AM. 2. Elevated TSH -Obtain free T4. Possible cause of AMS. -TSH was normal on 09/11. 3. IDDM -Accuchecks and home medications. 4. Macrocytic anemia -Above previous baseline. Continue to monitor. FULL code PPx: Lovenox for VTE, Famotidine for GI. disposition: Will admit patient to inpatient telemetry due to requirement of physical assistance that can not be offered on observation floor. Monitor clinical course.
[2018-10-01 22:05] LABS: Troponin I 0.023 ng/mL (< 0.028)
[2018-10-01] MEDS ORDERED: Dextrose 5% in Water 1,000 ML IV PRN (23:51)
[2018-10-01] MEDS ORDERED: Dextrose 50% Abboject 50 ML SYRINGE SLOW IVP PRN (23:51)
[2018-10-02] MEDS: Sodium Chloride 0.9% 1,000 ML IV SCH ×4 (00:40→20:22)
[2018-10-02 01:15] LABS: Troponin I 0.017 ng/mL (< 0.028)
[2018-10-02 03:50] LABS: #Basophils 0.1 thou/uL (0.0-0.2); #Eosinphils 0.4 thou/uL (0.0-0.7); #Lymphocytes 3.3 thou/uL (1.20-3.40); #Monocytes 0.9 thou/uL (0.11-0.59); #Neutrophils 3.8 thou/uL (1.40-6.50); %Eosinophils 4.2 % (0.0-10.0); %Lymphocytes 38.5 % (21.0-51.0); %Monocytes 11.1 % (0.0-10.0); %Neutrophils 45.2 % (42.0-75.0); Hemoglobin 8.2 g/dL (14.0-18.0); Mean Corpuscular HGB CONC 31.8 g/dL (32.0-36.0); Mean Corpuscular Hemoglobin 32.9 pg (27.0-31.0); Mean Platelet Volume 6.8 fL (7.4-10.4); Platelet Count 253 thou/uL (130-400); RBC Distribution Width 18.7 % (11.5-14.5); White Blood Cell (WBC) Count 8.4 thou/uL (4.8-10.8)
[2018-10-02 04:00] LABS: Bilirubin Negative (Negative); Blood, Urine Negative (Negative); Clarity CLOUDY (Clear); Glucose, Urine (Dipstick) Negative (Negative); Leukocyte Negative (Negative); Nitrite Negative (Negative); Protein, Urine (Dipstick) Negative (Neg-Trace); Specific Gravity, Urine 1.015 (1.002-1.036); Urobilinogen 0.2 mg/dL (0.2-1.0)
[2018-10-02 04:20] LABS: ALT (SGPT) 8 U/L (8-55); AST (SGOT) 15 U/L (5-34); Albumin 2.4 g/dL (3.4-4.8); Alkaline Phosphatase 221 U/L (40-150); Anion Gap 13 mmol/L (10-20); BUN (Urea Nitrogen) 17 mg/dL (8.4-25.7); Bilirubin, Total 0.4 mg/dL (0.2-1.2); Calc. Creatinine Clearance 0 mL/min (70-130); Calcium 8.2 mg/dL (7.8-10.44); Carbon Dioxide 22 mmol/L (23-31); Chloride 105 mmol/L (98-107); Estimated GFR-MDRD 83; Globulin 2.8 g/dL (2.4-3.5); Glucose 174 mg/dL (80-115); Potassium 4.5 mmol/L (3.5-5.1); Protein, Total 5.2 g/dL (5.8-8.1); Sodium 135 mmol/L (136-145)
[2018-10-02 05:50] VITALS: BMI 28.9
[2018-10-02 06:35] LABS: Free T4 (Free Thyroxine) 0.74 ng/dL (0.70-1.48)
[2018-10-02 06:51] LABS: Folate (Folic Acid) 11.5 ng/mL (7.0-31.4)
--- NOTE | 2018-10-02 06:59 | PDOC.FM ---
- Subjective Subjective: NAEO. Patient more lucid this morning. at the bedside, states that he has been more his usual self this morning. Patient able to hold conversation and answer questions appropriately. - Objective MAR Reviewed: Yes Vital Signs & Weight: Vital Signs (12 hours) Temp Pulse Resp BP Pulse Ox 10/02/18 05:49 97.6 F 87 20 128/61 100 Weight Weight 88.904 kg Result Diagrams: 10/02/18 03:34 10/02/18 03:34 Phys Exam - Physical Examination Constitutional: NAD HEENT: PERRLA, moist MMs, sclera anicteric Neck: full ROM Respiratory: no wheezing, no rales, no rhonchi, clear to auscultation bilateral Cardiovascular: RRR, no significant murmur, no rub Gastrointestinal: soft, non-tender, no distention, positive bowel sounds Neurological: moves all 4 limbs Psychiatric: normal affect Deviation from normal: axox2 Skin: no rash, normal turgor, cap refill <2 seconds Dx/Plan (1) Hyperkalemia Code(s): E87.5 - HYPERKALEMIA Status: Acute (2) Acute encephalopathy Code(s): G93.40 - ENCEPHALOPATHY, UNSPECIFIED Status: Acute (3) Hypomagnesemia Code(s): E83.42 - HYPOMAGNESEMIA Status: Acute (4) Adrenal insufficiency Code(s): E27.40 - UNSPECIFIED ADRENOCORTICAL INSUFFICIENCY Status: Chronic (5) CAD (coronary artery disease) Code(s): I25.10 - ATHSCL HEART DISEASE OF [place] CORONARY ARTERY W/O ANG PCTRS Status: Chronic Qualifiers: Coronary Disease-Associated Artery/Lesion type: [place] artery Associated angina: without angina (6) CKD (chronic kidney disease) stage 3, GFR 30-59 ml/min Status: Chronic (7) GERD (gastroesophageal reflux disease) Code(s): K21.9 - GASTRO-ESOPHAGEAL REFLUX DISEASE WITHOUT ESOPHAGITIS Status: Chronic (8) Hx of kidney transplant Status: Chronic (9) Hyperlipidemia Code(s): E78.5 - HYPERLIPIDEMIA, UNSPECIFIED Status: Chronic (10) Hypothyroid Code(s): E03.9 - HYPOTHYROIDISM, UNSPECIFIED Status: Chronic (11) IDDM (insulin dependent diabetes mellitus) Code(s): E11.9 - TYPE 2 DIABETES MELLITUS WITHOUT COMPLICATIONS; 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: Chronic (12) Morbid obesity with BMI of 40.0-44.9, adult Code(s): E66.01 - MORBID (SEVERE) OBESITY DUE TO EXCESS CALORIES; Z68.41 - BODY MASS INDEX (BMI) 40.0-44.9, ADULT Status: Chronic (13) JUDI on CPAP Code(s): G47.33 - OBSTRUCTIVE SLEEP APNEA (ADULT) (PEDIATRIC) Status: Chronic (14) Prostate cancer Code(s): C61 - MALIGNANT NEOPLASM OF PROSTATE Status: Chronic - Plan Plan: Acute hyperkalemia, likely iatrogenic - 6.5 in ED, no EKG changes - Acute hyperkalemia likely caused by excessive K+ replacement w/ patient's adrenal insufficiency making him more susceptible to rapid serum changes even w / low dose K+ - S/p insulin, kayexalate, no calcium gluconate since on digoxin - Repeat AM BMP, continue cardiac monitoring - Hold home potassium Acute encephalopathy - Could be precipitated by acute illness/hyperkalemia - Ammonia nml - UA nml NBA - 1.5x inc in baseline, usually <1 - Likely 2/2 from dec PO intake - Start mIVF - Recheck AM BMP Hx of seizures - will check dilantin level Hypothyroid - Mildly elevated TSH, will check T3/T4 Adrenal insufficiency - Continue home cortef IDDM2 - Sliding scale Macrocytic anemia, chronic - Hb around baseline - Continue home folic acid Prostate CA w/ mets - Continue oral chemotherapy Recurrent N/V, chronic - continue home reglan - plans to due outpt gastric emptying study with GI COPD - duonebs PRN dvt ppx: lovenox gi ppx: pantoprazole code: full dispo: admit inpt tele due to physical help requirements unable to admit to obs Addendum - Attending - Attending Attestation Date/Time: 10/02/18 4515 I personally evaluated the patient and discussed the management with Dr. Wilkins. H&P by Dr. Kay/Jim reviewed and repeated by me. I agree with the History, Examination, Assessment and Plan documented above with any addition or exceptions noted below. Patient is well known to me as I am his PCP. Per he became more confused over the past 2-3 days. Yesterday had some twitching and EMS brought him to ER. Here found to be hyperkalemic. At the time of my exam he is A&O x 3 but very somnolent and states he "is just tired". Hyperkalemia- resolved. most likely from replacement dose (now that he is not vomiting and diarrhea improved). Hold po potassium for now. h/o seizure d/o- no tonic clonic events- his dilantin level is therapeutic when corrected for albumin. metastatic prostate cancer- he had an elevated psa last week at Dr. Haywood office. Steady decline functionally- began discussion with about goals of treatment and possible hospice involvement. Will discuss with patient when he is more alert.
[2018-10-02] MEDS ORDERED: Magnesium 2 GM/50 ML 2 GM in Premix Bag 1 BAG IVPB SCH (07:00)
[2018-10-02] MEDS ORDERED: predniSONE 20 MG TAB PO SCH (08:00)
[2018-10-02] MEDS: Enoxaparin Sodium 40 MG/0.4 ML SYRINGE SC SCH (08:18)
[2018-10-02] MEDS: Hydrocortisone 10 mg Tablet PO SCH ×3 (08:19→17:47)
[2018-10-02] MEDS: Metoclopramide HCl 10 MG TAB PO SCH ×3 (08:19→20:12)
[2018-10-02] MEDS: Phenytoin 125 MG/5 ML UDCUP PO SCH (09:47)
[2018-10-02] MEDS ORDERED: Colchicine 0.6 MG TAB PO PRN (09:54)
[2018-10-02] MEDS: HYDROcodone/Acetaminophen 5/325 mg Tablet PO PRN ×2 (11:58→17:45)
[2018-10-02] MEDS: HumaLOG 300 UNITS/3 ML VIAL SC PRN ×2 (12:01→17:47)
[2018-10-02] MEDS ORDERED: Insulin Glargine 10 UNITS in Pre-Filled Syringe 1 EACH SC SCH (12:30)
[2018-10-02] MEDS: Ondansetron ODT 4 MG TAB PO PRN (13:00)
[2018-10-02] MEDS: Tacrolimus 0.5 MG CAP PO SCH (20:11)
[2018-10-02] MEDS: Magnesium Oxide 400 MG TAB PO SCH (20:13)
[2018-10-02] MEDS: Gabapentin 300 MG CAP PO SCH (20:13)
[2018-10-03] MEDS: Sodium Chloride 0.9% 1,000 ML IV SCH ×4 (01:34→21:22)
[2018-10-03 06:18] LABS: #Eosinphils 0.1 thou/uL (0.0-0.7); #Lymphocytes 2.2 thou/uL (1.20-3.40); #Monocytes 0.6 thou/uL (0.11-0.59); #Neutrophils 2.9 thou/uL (1.40-6.50); %Basophils 0.7 % (0.0-1.0); %Eosinophils 2.1 % (0.0-10.0); %Monocytes 9.8 % (0.0-10.0); %Neutrophils 49.4 % (42.0-75.0); Mean Corpuscular HGB CONC 31.8 g/dL (32.0-36.0); Mean Corpuscular Hemoglobin 32.8 pg (27.0-31.0); Mean Platelet Volume 6.6 fL (7.4-10.4); Platelet Count 231 thou/uL (130-400); RBC Distribution Width 18.8 % (11.5-14.5); Red Blood Cell (RBC) Count 2.14 mill/uL (4.70-6.10); White Blood Cell (WBC) Count 5.8 thou/uL (4.8-10.8)
[2018-10-03 06:45] LABS: ALT (SGPT) 7 U/L (8-55); AST (SGOT) 28 U/L (5-34); Albumin 2.1 g/dL (3.4-4.8); Alkaline Phosphatase 220 U/L (40-150); Anion Gap 10 mmol/L (10-20); BUN (Urea Nitrogen) 15 mg/dL (8.4-25.7); Bilirubin, Total 0.3 mg/dL (0.2-1.2); Calc. Creatinine Clearance 125 mL/min (70-130); Calcium 7.3 mg/dL (7.8-10.44); Carbon Dioxide 24 mmol/L (23-31); Chloride 107 mmol/L (98-107); Estimated GFR-MDRD Greater than 90; Globulin 2.5 g/dL (2.4-3.5); Glucose 135 mg/dL (80-115); Potassium 3.8 mmol/L (3.5-5.1); Protein, Total 4.6 g/dL (5.8-8.1); Sodium 137 mmol/L (136-145)
--- NOTE | 2018-10-03 06:52 | PDOC.FM ---
- Subjective Subjective: NAEO. Patient resting in bed. Denies lightheadedness, dizziness. Endorses heart beating fast. at the bedside who states patient is back to mental baseline. - Objective MAR Reviewed: Yes Vital Signs & Weight: Vital Signs (12 hours) Temp Pulse Resp BP Pulse Ox 10/03/18 04:17 98.3 F 77 16 147/74 H 100 10/03/18 00:00 97.7 F 82 16 136/69 95 10/02/18 19:43 97.3 F L 98 16 138/62 99 Weight Weight 94.03 kg I&O: 10/01/18 10/02/18 10/03/18 06:59 06:59 06:59 Intake Total 2009 Output Total 0 Balance 2009 Result Diagrams: 10/03/18 05:44 10/03/18 05:44 Phys Exam - Physical Examination Constitutional: NAD HEENT: PERRLA, moist MMs, sclera anicteric Neck: full ROM Respiratory: clear to auscultation bilateral Cardiovascular: RRR Gastrointestinal: soft, non-tender, no distention, positive bowel sounds Neurological: moves all 4 limbs Psychiatric: normal affect Skin: no rash, normal turgor, cap refill <2 seconds Dx/Plan (1) Hyperkalemia Code(s): E87.5 - HYPERKALEMIA Status: Acute (2) Acute encephalopathy Code(s): G93.40 - ENCEPHALOPATHY, UNSPECIFIED Status: Acute (3) Hypomagnesemia Code(s): E83.42 - HYPOMAGNESEMIA Status: Acute (4) Adrenal insufficiency Code(s): E27.40 - UNSPECIFIED ADRENOCORTICAL INSUFFICIENCY Status: Chronic (5) CAD (coronary artery disease) Code(s): I25.10 - ATHSCL HEART DISEASE OF [place] CORONARY ARTERY W/O ANG PCTRS Status: Chronic Qualifiers: Coronary Disease-Associated Artery/Lesion type: [place] artery Associated angina: without angina (6) CKD (chronic kidney disease) stage 3, GFR 30-59 ml/min Status: Chronic (7) GERD (gastroesophageal reflux disease) Code(s): K21.9 - GASTRO-ESOPHAGEAL REFLUX DISEASE WITHOUT ESOPHAGITIS Status: Chronic (8) Hx of kidney transplant Status: Chronic (9) Hyperlipidemia Code(s): E78.5 - HYPERLIPIDEMIA, UNSPECIFIED Status: Chronic (10) Hypothyroid Code(s): E03.9 - HYPOTHYROIDISM, UNSPECIFIED Status: Chronic (11) IDDM (insulin dependent diabetes mellitus) Code(s): E11.9 - TYPE 2 DIABETES MELLITUS WITHOUT COMPLICATIONS; Z79.4 - HALF-WAY (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 OF INSULIN Status: Chronic (12) Morbid obesity with BMI of 40.0-44.9, adult Code(s): E66.01 - MORBID (SEVERE) OBESITY DUE TO EXCESS CALORIES; Z68.41 - BODY MASS INDEX (BMI) 40.0-44.9, ADULT Status: Chronic (13) JUDI on CPAP Code(s): G47.33 - OBSTRUCTIVE SLEEP APNEA (ADULT) (PEDIATRIC) Status: Chronic (14) Prostate cancer Code(s): C61 - MALIGNANT NEOPLASM OF PROSTATE Status: Chronic - Plan Plan: Acute hyperkalemia, likely iatrogenic - 6.5 in ED, no EKG changes. Acute hyperkalemia likely caused by excessive K+ replacement w/ patient's adrenal insufficiency making him more susceptible to rapid serum changes even w/ low dose K+ - S/p insulin, kayexalate, no calcium gluconate since on digoxin - Repeat AM BMP, continue cardiac monitoring - Will reduce home potassium dosage Acute encephalopathy - Could be precipitated by acute illness/hyperkalemia - Ammonia nml - UA nml NBA - 1.5x inc in baseline, usually <1 - Likely 2/2 from dec PO intake - Start mIVF Hx of seizures - dilantin level nml when corrected for albumin - 16 Hypothyroid - Mildly elevated TSH, nml T4, mildly low T3 Adrenal insufficiency - Continue home cortef IDDM2 - Sliding scale Macrocytic anemia, chronic - Hb around baseline - Continue home folic acid - Hgb 7 on 10/03, will transfuse 1 uPRBCs Prostate CA w/ mets - Continue oral chemotherapy Recurrent N/V, chronic - continue home reglan - plans to due outpt gastric emptying study with GI COPD - duonebs PRN dvt ppx: lovenox gi ppx: pantoprazole code: full dispo: dc within 2-3 days, palliative care consulted Addendum - Attending - Attending Attestation Date/Time: 10/03/18 9346 I personally evaluated the patient and discussed the management with Dr. Wilkins. I agree with the History, Examination, Assessment and Plan documented above with any addition or exceptions noted below. I had a long conversation with patient and daughter about his recurrent hospitalizations and progression of his metastatic prostate cancer and his overall prognosis. Patient and daughter both state that he is tired of being in the hospital. We have attempted SNF placement, home care and he has not stayed out of the hospital for more the 8 days over the past 4-6 months. I recommended hospice care and change of goals from curative to comfort measures. He is willing to discuss with palliative care and hospice.
[2018-10-03 07:08] LABS: Magnesium 1.6 mg/dL (1.6-2.6); Phosphorus 2.2 mg/dL (2.3-4.7)
[2018-10-03] MEDS ORDERED: PHOS-NAK 1 PKT PACK PO SCH (08:15)
[2018-10-03] MEDS: Phenytoin 125 MG/5 ML UDCUP PO SCH ×4 (08:17→20:19)
[2018-10-03] MEDS: HYDROcodone/Acetaminophen 5/325 mg Tablet PO PRN ×2 (10:25→22:11)
[2018-10-03] MEDS: Bumetanide 1 MG TAB PO SCH (10:26)
[2018-10-03] MEDS: Gabapentin 300 MG CAP PO SCH ×2 (10:27→20:20)
[2018-10-03] MEDS: Hydrocortisone 10 mg Tablet PO SCH ×3 (10:27→17:39)
[2018-10-03] MEDS: Digoxin 0.125 MG TAB PO SCH (10:27)
[2018-10-03] MEDS: Allopurinol 100 MG TAB PO SCH (10:27)
[2018-10-03] MEDS: Metoclopramide HCl 10 MG TAB PO SCH ×3 (10:28→20:20)
[2018-10-03] MEDS: Atorvastatin Calcium 10 MG TAB PO SCH (10:28)
[2018-10-03] MEDS: Folic Acid 1 MG TAB PO SCH (10:28)
[2018-10-03] MEDS: Aspirin 325 mg Enteric Coated Tablet PO SCH (10:29)
[2018-10-03] MEDS: Amlodipine 5 MG TAB PO SCH (10:29)
[2018-10-03] MEDS: Enoxaparin Sodium 40 MG/0.4 ML SYRINGE SC SCH (10:33)
[2018-10-03] MEDS: Insulin Glargine 10 UNITS in Pre-Filled Syringe 1 EACH SC SCH (10:34)
[2018-10-03] MEDS: Magnesium Oxide 400 MG TAB PO SCH ×2 (10:36→20:20)
[2018-10-03] MEDS: Tacrolimus 0.5 MG CAP PO SCH ×2 (12:02→20:20)
[2018-10-03 17:55] LABS: Hemoglobin 7.8 g/dL (14.0-18.0)
[2018-10-03] MEDS: Benzonatate 100 MG CAP PO PRN (22:49)
[2018-10-04] MEDS: Acetaminophen 500 MG TAB PO PRN ×2 (03:32→08:14)
[2018-10-04] MEDS: Sodium Chloride 0.9% 1,000 ML IV SCH (03:32)
[2018-10-04] MEDS: HYDROcodone/Acetaminophen 5/325 mg Tablet PO PRN ×2 (05:45→21:32)
--- NOTE | 2018-10-04 06:20 | PDOC.FM ---
- Subjective Subjective: Overnight, the patient fevered to a Tmax of 101.6. The patient is post - transfusion, and temperature resolved with tylenol. Patient asymptomatic during this time. On exam this morning, the patient is complaining of a headache. Denies fever, chills, dysuria, chest pain. Patient states that he will speak w/ palliative care today with the goal of getting home by . - Objective MAR Reviewed: Yes Vital Signs & Weight: Vital Signs (12 hours) Temp Pulse Resp BP BP Pulse Ox 10/04/18 05:52 99.4 F 10/04/18 04:20 100.2 F H 97 22 H 91/54 L 99 10/04/18 03:00 101.6 F H 10/03/18 23:18 98.2 F 89 16 124/55 L 93 L 10/03/18 20:00 98 10/03/18 19:20 98.3 F 81 12 98/55 L 98 Weight Weight 94.03 kg I&O: 10/02/18 10/03/18 10/04/18 06:59 06:59 06:59 Intake Total 2009 3871 Output Total 0 950 Balance 2009 2921 Result Diagrams: 10/04/18 10:45 10/04/18 10:45 Phys Exam - Physical Examination Constitutional: NAD HEENT: PERRLA, moist MMs, sclera anicteric Neck: full ROM Respiratory: no wheezing, clear to auscultation bilateral Cardiovascular: RRR, no significant murmur, no rub Gastrointestinal: soft, non-tender, no distention, positive bowel sounds Neurological: moves all 4 limbs Psychiatric: normal affect Skin: no rash, normal turgor, cap refill <2 seconds Dx/Plan (1) Hyperkalemia Code(s): E87.5 - HYPERKALEMIA Status: Acute (2) Acute encephalopathy Code(s): G93.40 - ENCEPHALOPATHY, UNSPECIFIED Status: Acute (3) Hypomagnesemia Code(s): E83.42 - HYPOMAGNESEMIA Status: Acute (4) Adrenal insufficiency Code(s): E27.40 - UNSPECIFIED ADRENOCORTICAL INSUFFICIENCY Status: Chronic (5) CAD (coronary artery disease) Code(s): I25.10 - ATHSCL HEART DISEASE OF [place] CORONARY ARTERY W/O ANG PCTRS Status: Chronic Qualifiers: Coronary Disease-Associated Artery/Lesion type: [place] artery Associated angina: without angina (6) CKD (chronic kidney disease) stage 3, GFR 30-59 ml/min Status: Chronic (7) GERD (gastroesophageal reflux disease) Code(s): K21.9 - GASTRO-ESOPHAGEAL REFLUX DISEASE WITHOUT ESOPHAGITIS Status: Chronic (8) Hx of kidney transplant Status: Chronic (9) Hyperlipidemia Code(s): E78.5 - HYPERLIPIDEMIA, UNSPECIFIED Status: Chronic (10) Hypothyroid Code(s): E03.9 - HYPOTHYROIDISM, UNSPECIFIED Status: Chronic (11) IDDM (insulin dependent diabetes mellitus) Code(s): E11.9 - TYPE 2 DIABETES MELLITUS WITHOUT COMPLICATIONS; Z79.4 - APPLICATIONS TESTER (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 OF INSULIN Status: Chronic (12) Morbid obesity with BMI of 40.0-44.9, adult Code(s): E66.01 - MORBID (SEVERE) OBESITY DUE TO EXCESS CALORIES; Z68.41 - BODY MASS INDEX (BMI) 40.0-44.9, ADULT Status: Chronic (13) JUDI on CPAP Code(s): G47.33 - OBSTRUCTIVE SLEEP APNEA (ADULT) (PEDIATRIC) Status: Chronic (14) Prostate cancer Code(s): C61 - MALIGNANT NEOPLASM OF PROSTATE Status: Chronic - Plan Plan: Acute hyperkalemia, likely iatrogenic - 6.5 in ED, no EKG changes. Acute hyperkalemia likely caused by excessive K+ replacement w/ patient's adrenal insufficiency making him more susceptible to rapid serum changes even w/ low dose K+ - S/p insulin, kayexalate, no calcium gluconate since on digoxin - Repeat AM BMP, continue cardiac monitoring - Will reduce home potassium dosage Acute encephalopathy - Could be precipitated by acute illness/hyperkalemia - Ammonia nml - UA nml NBA - 1.5x inc in baseline, usually <1 - Likely 2/2 from dec PO intake - Start mI Hx of seizures - dilantin level nml when corrected for albumin - 16 Hypothyroid - Mildly elevated TSH, nml T4, mildly low T3 Adrenal insufficiency - Continue home cortef - Zytiga can be a contributing factor to suppression of the HPA axis, can consider DC this medication after discussion with palliative and goals of care. IDDM2 - Sliding scale Macrocytic anemia, chronic - Hb around baseline - Continue home folic acid - Hgb 7 on 10/03, will transfuse 1 uPRBCs -> 7.8, patient asympt Prostate CA w/ mets - Continue oral chemotherapy, see above in adrenal insufficiency - Patient's PSA in 200s despite treatment Recurrent N/V, chronic - continue home reglan - plans to due outpt gastric emptying study with GI COPD - duonebs PRN dvt ppx: lovenox gi ppx: pantoprazole code: full dispo: dc within 2-3 days, palliative care consulted, CM consulted for discharge planning Addendum - Attending - Attending Attestation Date/Time: 10/04/18 2755 I personally evaluated the patient and discussed the management with Dr. Wilkins I agree with the History, Examination, Assessment and Plan documented above with any addition or exceptions noted below. Patient with recurrent hospitalizations over the past six months. Metastatic prostate cancer, adrenal insuffiency, hypokalemia, poor nutrition, seizure disorder. After discussion with , daughter and patient, they will be pursuing hospice/palliative care at home. Appreciate palliative care team.
[2018-10-04] MEDS: Insulin Glargine 10 UNITS in Pre-Filled Syringe 1 EACH SC SCH (08:15)
[2018-10-04] MEDS: Gabapentin 300 MG CAP PO SCH ×2 (08:16→20:28)
[2018-10-04] MEDS: Allopurinol 100 MG TAB PO SCH (08:16)
[2018-10-04] MEDS: Metoclopramide HCl 10 MG TAB PO SCH ×3 (08:16→20:28)
[2018-10-04] MEDS: Amlodipine 5 MG TAB PO SCH (08:17)
[2018-10-04] MEDS: Digoxin 0.125 MG TAB PO SCH (08:18)
[2018-10-04] MEDS: Atorvastatin Calcium 10 MG TAB PO SCH (08:19)
[2018-10-04] MEDS: Folic Acid 1 MG TAB PO SCH (08:19)
[2018-10-04] MEDS: Aspirin 325 mg Enteric Coated Tablet PO SCH (08:19)
[2018-10-04] MEDS: Magnesium Oxide 400 MG TAB PO SCH ×2 (08:19→20:28)
[2018-10-04] MEDS: Hydrocortisone 10 mg Tablet PO SCH ×3 (08:19→17:42)
[2018-10-04] MEDS: Enoxaparin Sodium 40 MG/0.4 ML SYRINGE SC SCH (08:20)
[2018-10-04] MEDS: Tacrolimus 0.5 MG CAP PO SCH ×2 (08:22→20:29)
[2018-10-04] MEDS: Ondansetron ODT 4 MG TAB PO PRN (08:24)
[2018-10-04] MEDS: Bumetanide 1 MG TAB PO SCH (08:29)
[2018-10-04 10:55] LABS: #Basophils 0.1 thou/uL (0.0-0.2); #Eosinphils 0.2 thou/uL (0.0-0.7); #Lymphocytes 2.5 thou/uL (1.20-3.40); #Monocytes 0.8 thou/uL (0.11-0.59); #Neutrophils 3.2 thou/uL (1.40-6.50); %Eosinophils 2.9 % (0.0-10.0); %Neutrophils 47.1 % (42.0-75.0); Hemoglobin 7.7 g/dL (14.0-18.0); Mean Corpuscular HGB CONC 31.3 g/dL (32.0-36.0); Mean Corpuscular Hemoglobin 31.8 pg (27.0-31.0); Mean Platelet Volume 6.5 fL (7.4-10.4); Platelet Count 219 thou/uL (130-400); RBC Distribution Width 18.6 % (11.5-14.5); Red Blood Cell (RBC) Count 2.43 mill/uL (4.70-6.10); White Blood Cell (WBC) Count 6.9 thou/uL (4.8-10.8)
[2018-10-04 11:23] LABS: ALT (SGPT) Less than 7 U/L (8-55); AST (SGOT) 22 U/L (5-34); Alkaline Phosphatase 194 U/L (40-150); Anion Gap 9 mmol/L (10-20); BUN (Urea Nitrogen) 11 mg/dL (8.4-25.7); Bilirubin, Total 0.4 mg/dL (0.2-1.2); Calc. Creatinine Clearance 143 mL/min (70-130); Calcium 7.1 mg/dL (7.8-10.44); Carbon Dioxide 23 mmol/L (23-31); Chloride 106 mmol/L (98-107); Estimated GFR-MDRD Greater than 90; Globulin 2.3 g/dL (2.4-3.5); Glucose 155 mg/dL (80-115); Potassium 3.4 mmol/L (3.5-5.1); Protein, Total 4.3 g/dL (5.8-8.1); Sodium 135 mmol/L (136-145)
--- NOTE | 2018-10-04 13:55 | PQF ---
EYAL ZAYAS RAE ANN MD [id number] [facility] [place] [id number] CLINICAL DOCUMENTATION IMPROVEMENT CLARIFICATION FORM: ICD-10 Updated PLEASE DO AN ADDENDUM TO THE PROGRESS NOTE WITH ANY DOCUMENTATION UPDATES OR ADDITIONS AND CARRY THROUGH TO DC SUMMARY. THANK YOU. DATE: 10/04/18 ATTN: Yesi Wilkins MD Please exercise your independent, professional judgment in responding to the clarification form. Clinical indicators are provided on the bottom of this form for your review Please check appropriate box(s): [x ] Encephalopathy: Type: [ x ] Acute [ ] Subacute [ ] Chronic Etiology: [x ] Metabolic due to NBA s/p renal transplant and Hyperkalemia [ ] Drug induced: [ ] Unspecified [ ] in the setting of underlying dementia [ ] Other (please specify) [ ] Transient Alteration of Awareness [ ] Other diagnosis [ ] Unable to determine In addition, please specify: Present on Admission (POA): [ x ] Yes [ ] No [ ] Unable to determine For continuity of documentation, please document condition throughout progress notes and discharge summary. Thank You. CLINICAL INDICATORS - SIGNS / SYMPTOMS / LABS Altered mental status / confusion improving once cause is corrected (acute)--> H &P: AMS, Acute encephalopathy could be precipated by acute illness/hyperkalemia Metabolic / electrolyte abnormality--> 10/01 bun 17, creat 1.06, GFR 84 to bun 17 , creat 1.10, GFR 80, K 6.5 to 10/04 bun 11, creat 0.65, GFR >90, K 3.4 per lab RISK FACTORS NBA-1.5x inc in baseline, usually <1 likely decrease po intake with history of ESRD s/p renal transplant per H&P Electrolyte imbalance--> Hyperkalemia H&P TREATMENTS: Stop K replacement 10/01 orders IV fluids--> 10/01 NS at 150 10/01-10/04 per AUG Kayexelate 10/01 once per AUG 2014 [employer] All Rights Reserved Felipa Kiran RN, BSN, CCDS [email or web address] (This form is maintained as a part of the permanent medical record) MTDD
[2018-10-04] MEDS: HumaLOG 300 UNITS/3 ML VIAL SC PRN ×2 (18:34→20:31)
[2018-10-04] MEDS: Pepto Bismol Chew TAB PO PRN (21:04)
[2018-10-04] MEDS: Benzonatate 100 MG CAP PO PRN (21:33)
[2018-10-05] MEDS: Acetaminophen 500 MG TAB PO PRN ×2 (03:15→20:49)
[2018-10-05] MEDS: HYDROcodone/Acetaminophen 5/325 mg Tablet PO PRN (05:55)
--- NOTE | 2018-10-05 06:36 | PDOC.FM ---
- Subjective Subjective: NAEO. Patient resting comfortably in bed. No issues or concerns. Patient is wanting to be home for [facility], but states that he wants to go with palliative and is not wanting hospice. at the bedside. Patient states that he is willing to talk with palliative to go over all his options. - Objective MAR Reviewed: Yes Vital Signs & Weight: Vital Signs (12 hours) Temp Pulse Resp BP Pulse Ox 10/05/18 04:00 97.9 F 80 16 108/53 L 98 10/05/18 00:00 97.3 F L 72 16 124/62 99 10/04/18 20:28 99 10/04/18 19:55 98 F 84 16 111/64 99 Weight Weight 96.252 kg I&O: 10/03/18 10/04/18 10/05/18 06:59 06:59 06:59 Intake Total 2009 3871 Output Total 0 950 Balance 2009 2921 Result Diagrams: 10/04/18 10:45 10/04/18 10:45 Phys Exam - Physical Examination Constitutional: NAD HEENT: PERRLA, moist MMs, sclera anicteric Neck: supple, full ROM Respiratory: no wheezing, no rales, no rhonchi, clear to auscultation bilateral Cardiovascular: RRR Gastrointestinal: soft, non-tender, no distention, positive bowel sounds Neurological: non-focal, moves all 4 limbs Psychiatric: normal affect Skin: no rash, normal turgor, cap refill <2 seconds Dx/Plan (1) Hyperkalemia Code(s): E87.5 - HYPERKALEMIA Status: Acute (2) Acute encephalopathy Code(s): G93.40 - ENCEPHALOPATHY, UNSPECIFIED Status: Acute (3) Hypomagnesemia Code(s): E83.42 - HYPOMAGNESEMIA Status: Acute (4) Adrenal insufficiency Code(s): E27.40 - UNSPECIFIED ADRENOCORTICAL INSUFFICIENCY Status: Chronic (5) CAD (coronary artery disease) Code(s): I25.10 - ATHSCL HEART DISEASE OF [place] CORONARY ARTERY W/O ANG PCTRS Status: Chronic Qualifiers: Coronary Disease-Associated Artery/Lesion type: [place] artery Associated angina: without angina (6) CKD (chronic kidney disease) stage 3, GFR 30-59 ml/min Status: Chronic (7) GERD (gastroesophageal reflux disease) Code(s): K21.9 - GASTRO-ESOPHAGEAL REFLUX DISEASE WITHOUT ESOPHAGITIS Status: Chronic (8) Hx of kidney transplant Status: Chronic (9) Hyperlipidemia Code(s): E78.5 - HYPERLIPIDEMIA, UNSPECIFIED Status: Chronic (10) Hypothyroid Code(s): E03.9 - HYPOTHYROIDISM, UNSPECIFIED Status: Chronic (11) IDDM (insulin dependent diabetes mellitus) Code(s): E11.9 - TYPE 2 DIABETES MELLITUS WITHOUT COMPLICATIONS; 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 Acute hyperkalemia likely caused by excessive K+ replacement w/ patient's adrenal insufficiency making him more susceptible to rapid serum changes even w/ low dose K+ - S/p insulin, kayexalate, no calcium gluconate since on digoxin - Will reduce home potassium dosage Acute encephalopathy, resolved - Could be precipitated by acute illness/hyperkalemia - Ammonia nml - UA nml NBA - 1.5x inc in baseline, usually <1 - Likely 2/2 from dec PO intake - Start mI Hx of seizures - dilantin level nml when corrected for albumin - 16 Hypothyroid - Mildly elevated TSH, nml T4, mildly low T3 Adrenal insufficiency - Continue home cortef - Zytiga can be a contributing factor to suppression of the HPA axis, can consider DC this medication after discussion with palliative and goals of care. IDDM2 - Sliding scale Macrocytic anemia, chronic - Hb around baseline - Continue home folic acid - Hgb 7 on 10/03, will transfuse 1 uPRBCs -> 7.8, patient asympt Prostate CA w/ mets - Continue oral chemotherapy, see above in adrenal insufficiency - Patient's PSA in 200s despite treatment Recurrent N/V, chronic - continue home reglan - plans to due outpt gastric emptying study with GI COPD - clarita PRN Palliative/Hospice discussion: Patient with multiple hospital stays over the last few months. Patient desires to go home for Easter and spend valuable/quality time at home with his family. Patient states that he is tired of coming back to the hospital so often and does not wish to come back again. The patient is agreeable to palliative care, but when hospice is brought up he gets very anxious. Patient has several questions about what treatments and medical care that can still be given while in hospice care. Patient was also uncertain of how long someone can be on hospice and the goals of hospice care. Palliative care is to meet with the patient this AM. dvt ppx: lovenox gi ppx: pantoprazole code: full dispo: dc within 2-3 days, palliative care consulted, CM consulted for discharge planning Addendum - Attending - Attending Attestation Date/Time: 10/05/18 4449 I personally evaluated the patient and discussed the management with Dr. Wilkins. I agree with the History, Examination, Assessment and Plan documented above with any addition or exceptions noted below. Patient is requesting to go home today after speaking with palliative care and at this time is leaning towards palliative care through HH (and not hospice). Discussed the difference and he states he is not ready to yet. Will check BMP and CBC to ensure lytes and blood counts stable prior to discharge.
[2018-10-05] MEDS: Insulin Glargine 10 UNITS in Pre-Filled Syringe 1 EACH SC SCH (08:18)
[2018-10-05] MEDS: Potassium Chloride 20 MEQ TAB PO SCH ×2 (08:19→18:03)
[2018-10-05] MEDS: Gabapentin 300 MG CAP PO SCH ×2 (08:19→20:49)
[2018-10-05] MEDS: Hydrocortisone 10 mg Tablet PO SCH ×3 (08:19→16:29)
[2018-10-05] MEDS: Folic Acid 1 MG TAB PO SCH (08:20)
[2018-10-05] MEDS: Digoxin 0.125 MG TAB PO SCH (08:20)
[2018-10-05] MEDS: Magnesium Oxide 400 MG TAB PO SCH ×2 (08:20→20:49)
[2018-10-05] MEDS: Atorvastatin Calcium 10 MG TAB PO SCH (08:20)
[2018-10-05] MEDS: Amlodipine 5 MG TAB PO SCH (08:20)
[2018-10-05] MEDS: Aspirin 325 mg Enteric Coated Tablet PO SCH (08:21)
[2018-10-05] MEDS: Allopurinol 100 MG TAB PO SCH (08:21)
[2018-10-05] MEDS: Bumetanide 1 MG TAB PO SCH (08:21)
[2018-10-05] MEDS: Metoclopramide HCl 10 MG TAB PO SCH ×3 (08:21→20:49)
[2018-10-05] MEDS: Enoxaparin Sodium 40 MG/0.4 ML SYRINGE SC SCH (08:22)
[2018-10-05] MEDS: Tacrolimus 0.5 MG CAP PO SCH ×2 (08:22→20:49)
[2018-10-05] MEDS: Ondansetron ODT 4 MG TAB PO PRN ×2 (08:40→16:37)
[2018-10-05 11:37] LABS: Anion Gap 8 mmol/L (10-20); BUN (Urea Nitrogen) 8 mg/dL (8.4-25.7); Calc. Creatinine Clearance 173 mL/min (70-130); Calcium 6.2 mg/dL (7.8-10.44); Carbon Dioxide 20 mmol/L (23-31); Chloride 109 mmol/L (98-107); Estimated GFR-MDRD Greater than 90; Glucose 148 mg/dL (80-115); Potassium 3.1 mmol/L (3.5-5.1); Sodium 134 mmol/L (136-145)
[2018-10-05] MEDS ORDERED: Sterile Water 10 ML VIAL FS SCH (12:07)
[2018-10-05] MEDS ORDERED: Activase 2 MG VIAL CATH SCH ×2 (12:07→23:30)
[2018-10-05 12:32] LABS: #Eosinphils 0.2 thou/uL (0.0-0.7); #Monocytes 0.6 thou/uL (0.11-0.59); %Basophils 0.3 % (0.0-1.0); %Eosinophils 2.7 % (0.0-10.0); %Lymphocytes 34.7 % (21.0-51.0); %Monocytes 9.7 % (0.0-10.0); %Neutrophils 52.6 % (42.0-75.0); Bite Cells SLIGHT = 2-5 cells (100X) (0-1/hpf); Hemoglobin 6.6 g/dL (14.0-18.0); MDiff Complete? YES; Mean Corpuscular HGB CONC 32.2 g/dL (32.0-36.0); Mean Corpuscular Hemoglobin 32.1 pg (27.0-31.0); Mean Corpuscular Volume 99.7 fL (78.0-98.0); Mean Platelet Volume 7.2 fL (7.4-10.4); Platelet Count 119 thou/uL (130-400); Platelet Morphology Comment Appears Decreased; Polychromasia SLIGHT = 2-3 cells (100X) (0-2/hpf); RBC Distribution Width 18.6 % (11.5-14.5); Red Blood Cell (RBC) Count 2.06 mill/uL (4.70-6.10); Schistocytes SLIGHT = 2-5 cells (100X) (0-1/hpf); White Blood Cell (WBC) Count 5.7 thou/uL (4.8-10.8)
[2018-10-05] MEDS ORDERED: Potassium Chloride 20 MEQ TAB PO SCH (13:45)
[2018-10-05 14:19] LABS: Phosphorus 1.1 mg/dL (2.3-4.7)
[2018-10-05] MEDS ORDERED: PHOS-NAK 1 PKT PACK PO SCH (16:30)
[2018-10-05] MEDS ORDERED: Magnesium Oxide 400 MG TAB PO SCH (17:45)
[2018-10-05] MEDS: HumaLOG 300 UNITS/3 ML VIAL SC PRN ×2 (18:03→20:50)
[2018-10-05] MEDS: Benzonatate 100 MG CAP PO PRN (21:09)
[2018-10-05] MEDS: Pepto Bismol Chew TAB PO PRN (21:33)
[2018-10-05] MEDS ORDERED: Sterile Water 10 ML VIAL IVP SCH (23:30)
[2018-10-06 00:09] VITALS: BP 114/57; TEMP 98.2
== END 2018-10-06 01:00 | disposition home or self-care (01) | DRG 682 ==
LOC: ERS 15:12 → OBSVTOIN 21:05 → ERHOLD 21:05 → 2SE 10-02 05:31
PROVIDERS: ADMIT Family Medicine; ATTEND Family Medicine
DX: N17.9 Acute kidney failure, unspecified (principal); G93.41 Metabolic encephalopathy; B00.4 Herpesviral encephalitis; Z68.41 Body mass index [BMI] 40.0-44.9, adult; I13.0 Hypertensive heart and chronic kidney disease with heart failure and stage 1 through stage 4 chronic kidney disease, or unspecified chronic kidney disease; I50.32 Chronic diastolic (congestive) heart failure; Z94.0 Kidney transplant status; E27.40 Unspecified adrenocortical insufficiency; E87.5 Hyperkalemia; E78.5 Hyperlipidemia, unspecified; E03.9 Hypothyroidism, unspecified; E66.01 Morbid (severe) obesity due to excess calories; C61 Malignant neoplasm of prostate; J44.9 Chronic obstructive pulmonary disease, unspecified; D53.9 Nutritional anemia, unspecified; E83.42 Hypomagnesemia; I25.10 Atherosclerotic heart disease of native coronary artery without angina pectoris; K21.9 Gastro-esophageal reflux disease without esophagitis; G47.33 Obstructive sleep apnea (adult) (pediatric); N18.3 Chronic kidney disease, stage 3 (moderate); E11.22 Type 2 diabetes mellitus with diabetic chronic kidney disease; M10.9 Gout, unspecified; G40.909 Epilepsy, unspecified, not intractable, without status epilepticus
CPT/HCPCS: 36415; 36416; 36430; 71045; 80048; 80053; 80185; 81003; 82140; 82550; 82607; 82746; 83690; 83735; 84100; 84439; 84443; 84481; 84484; 85025; 86850; 86900; 86901; 87040; 87086; 93005; 96374; 96375; A4216; J1650; J1815; J1825; J2997; J3475; J7507; J8597; P9016; Q0162

== ENCOUNTER 2018-11-14 06:11 | Observation (INO) | payer MEDICARE ==
[2018-11-14] MEDS ORDERED: cefTRIAXone\\ROCEPHIN 1 GM VIAL ONE (06:54)
[2018-11-14] MEDS ORDERED: Fentanyl 100 MCG/2 ML VIAL ONE ×3 (06:54→08:35)
[2018-11-14] MEDS ORDERED: Sodium Chloride 0.9% 100 ML ONE (06:54)
[2018-11-14] MEDS ORDERED: Ondansetron PF 4 MG/2 ML Vial ONE ×2 (06:54→07:09)
[2018-11-14 07:24] LABS: #Basophils 0.1 thou/uL (0.0-0.2); #Eosinphils 0.1 thou/uL (0.0-0.7); #Lymphocytes 3.4 thou/uL (1.20-3.40); #Monocytes 0.6 thou/uL (0.11-0.59); #Neutrophils 4.9 thou/uL (1.40-6.50); %Basophils 1.1 % (0.0-1.0); %Eosinophils 0.9 % (0.0-10.0); %Lymphocytes 37.4 % (21.0-51.0); %Monocytes 6.6 % (0.0-10.0); Hemoglobin 8.8 g/dL (14.0-18.0); Mean Corpuscular HGB CONC 33.2 g/dL (32.0-36.0); Mean Corpuscular Hemoglobin 30.4 pg (27.0-31.0); Mean Corpuscular Volume 91.5 fL (78.0-98.0); Mean Platelet Volume 4.7 fL (7.4-10.4); Platelet Count 271 thou/uL (130-400); RBC Distribution Width 18.7 % (11.5-14.5); Red Blood Cell (RBC) Count 2.89 mill/uL (4.70-6.10)
[2018-11-14 07:31] LABS: ALT (SGPT) 10 U/L (8-55); AST (SGOT) 19 U/L (5-34); Albumin 2.5 g/dL (3.4-4.8); Alkaline Phosphatase 172 U/L (40-150); Anion Gap 14 mmol/L (10-20); Anisocytosis SLIGHT = 6-15 cells (100X) (0-5/hpf); BUN (Urea Nitrogen) 17 mg/dL (8.4-25.7); Bilirubin, Total 0.3 mg/dL (0.2-1.2); CK (CPK) 24 U/L (30-200); Calc. Creatinine Clearance 0 mL/min (70-130); Calcium 8.7 mg/dL (7.8-10.44); Carbon Dioxide 17 mmol/L (23-31); Chloride 103 mmol/L (98-107); Estimated GFR-MDRD Greater than 90; Globulin 3.1 g/dL (2.4-3.5); Glucose 151 mg/dL (80-115); Platelet Morphology Comment Appears Adequate; Potassium 4.9 mmol/L (3.5-5.1); Protein, Total 5.6 g/dL (5.8-8.1); Sodium 129 mmol/L (136-145)
[2018-11-14 07:35] LABS: Bilirubin Negative (Negative); Blood, Urine Moderate (Negative); Clarity Turbid (Clear); Glucose, Urine (Dipstick) Negative (Negative); Leukocyte Moderate (Negative); Nitrite Negative (Negative); Protein, Urine (Dipstick) 100 mg/dL (Neg-Trace); Urobilinogen 0.2 mg/dL (0.2-1.0)
[2018-11-14 07:46] LABS: RBC/HPF 0-3 HPF (0-3)
[2018-11-14 07:47] LABS: Bacteria/HPF 4+ HPF (None Seen); Squamous Epithelial 0-3 HPF (0-3)
[2018-11-14] MEDS ORDERED: HYDROcodone/Acetaminophen 5/325 mg Tablet PO PRN ×2 (10:03)
[2018-11-14] MEDS ORDERED: Acetaminophen 325 MG TAB PO PRN (10:03)
[2018-11-14 10:32] VITALS: BMI 27.5
[2018-11-14] MEDS: Sodium Chloride 0.9% 1,000 ML IV SCH ×3 (10:50→18:24)
--- NOTE | 2018-11-14 11:51 | PDOC.FPRHP ---
- History of Present Illness Chief Complaint: Dysuria History of Present Illness: Mr. Joseph presents with his for a 7 day history of dysuria presented to clinic 3 days prior to admission, were prescribed ciprofloxacin and UA/Cx was sent off. began taking cipro 1 day DE [employer] INST[employer]. Initially reported fever but denies any recently, dysuria present, reported cloudy color. Denies flank/ abdominal pain, decreased PO intake, syncope, dizziness, seizures or rash. Reports tolerating medications without n/v recently. doing well at home w/ home health. ED Course: txfr from [facility] cbc, cmp, B/Ucx - Allergies/Adverse Reactions Allergies Allergy/AdvReac Type Severity Reaction Status Date / Time Latex, Natural Rubber Allergy Verified 10/02/18 05:47 morphine Allergy Verified 10/02/18 05:47 NSAIDS (Non-Steroidal Allergy Verified 10/02/18 05:47 Anti-Inflamma Penicillins Allergy Severe Verified 10/02/18 05:47 Hives povidone-iodine Allergy Rash Verified 10/02/18 05:47 [From Betadine] shellfish derived Allergy Verified 10/02/18 05:47 Tetracyclines Allergy Verified 10/02/18 05:47 lisinopril AdvReac Mild COUGHING Verified 10/02/18 05:47 - Home Medications Medication Instructions Recorded Confirmed Type Aspirin [Aspirin EC] 325 mg PO DAILY 02/18/15 10/02/18 History Atorvastatin Calcium [Lipitor] 10 mg PO DAILY #30 tab 09/03/18 10/02/18 Rx Bumetanide [Bumex] 1 mg PO DAILY tab 09/03/18 10/02/18 Rx Colchicine 0.6 mg PO BID PRN #60 tab 09/03/18 10/02/18 Rx Digoxin [Lanoxin] 0.125 mg PO DAILY #30 tab 09/03/18 10/02/18 Rx Folic Acid [Folvite] 1 mg PO DAILY #30 tab 09/03/18 10/02/18 Rx Pantoprazole [Protonix] 40 mg PO DAILY #30 tab 09/03/18 10/02/18 Rx Tacrolimus 1 mg PO BID #60 capsule 09/03/18 10/02/18 Rx Allopurinol 300 mg PO DAILY 09/07/18 10/02/18 History HYDROcodone Bit/APAP 5/325 [[place]] 1 tab PO Q4H PRN tab 09/13/18 10/02/18 Rx Insulin Glargine [Lantus Vial] 10 units SC QAM #0 vial 09/16/18 10/02/18 Rx Metoclopramide HCl [Reglan] 10 mg PO TID 30 Days #90 tab 09/16/18 10/02/18 Rx Amlodipine Besylate [amLODIPine 1 tab PO DAILY 10/02/18 10/02/18 History Besylate] Atorvastatin Calcium [Lipitor] 10 mg PO DAILY 10/02/18 10/02/18 History Bismuth Subsalicylate 262 mg PO Q2HR PRN 10/02/18 10/02/18 History [Pepto-Bismol] Gabapentin [Neurontin] 300 mg PO QAM 10/02/18 10/02/18 History Gabapentin [Neurontin] 900 mg PO QPM 10/02/18 10/02/18 History Hydrocortisone 1 tab PO QAM 10/02/18 10/02/18 History Magnesium Oxide [Mag-Oxide] 400 mg PO BID 10/02/18 10/02/18 History Metoprolol Succinate [Toprol Xl] 100 mg PO BID 10/02/18 10/02/18 History Mycophenolate Mofetil [Cellcept 2 teaspoon PO BID 10/02/18 10/02/18 History Oral Suspension] Ondansetron [Zofran ODT] 1 tab PO Q6HR PRN 10/02/18 10/02/18 History Phenytoin [Dilantin Suspension] 100 mg PO BID 10/02/18 10/02/18 History Insulin Glargine [Lantus Vial] 10 units SC QAM vial 10/05/18 Rx Potassium Chloride [K-Dur] 20 meq PO BID-WM #60 tab 10/05/18 Rx - History PMHx:Adrenal insufficiency, metastatic prostate CA, HTN, HLD, IDDM2, COPD, Gout , Seizure disorder, HFpEF PSHx: Renal transplant, hernia x3, cholecystecomy FHx: CAD, DM2 Social: no TAD - Review of Systems General: reports: fever/chills. denies: weight/appetite/sleep changes Eyes: denies: eye pain, vision changes Respiratory: denies: cough, shortness of breath Cardiovascular: denies: chest pain, palpitation Gastrointestinal: denies: nausea, vomiting, diarrhea, constipation, abdominal pain Genitourinary: reports: dysuria. denies: incontinence, polyuria, discharge Skin: denies: rashes, lesions Musculoskeletal: denies: pain, tenderness Neurological: denies: numbness, syncope Psychological: denies: anxiety - Vital signs BP: 131/87 HR: 84 RR: 17 Tmax: 97.7 Pox: 99% on RA Wt: 84kg - Physical Exam Constitutional: NAD, awake, alert and oriented HEENT: grossly normal vision, grossly normal hearing, MMM Neck: supple, trachea midline Chest: no-tender to palpation, no lesions Heart: RRR, normal S1/S2, no murmurs/rubs/gallops Lungs: CTAB, no respiratory distress Abdomen: soft, bowel sounds present, no masses/distention, other (ttp) Musculoskeletal: normal structure, normal tone Neurological: no focal deficit Skin: no rash/lesions, good turgor Heme/Lymphatic: no unusual bruising or bleeding Psychiatric: normal mood and affect FMR H&P: Results - Labs Result Diagrams: 11/14/18 07:00 11/14/18 07:00 Lab results: WBC 9.0 thou/uL (4.8-10.8) 11/14/18 07:00 Hgb 8.8 g/dL (14.0-18.0) L 11/14/18 07:00 Hct 26.4 % (42.0-52.0) L 11/14/18 07:00 MCV 91.5 fL (78.0-98.0) 11/14/18 07:00 Plt Count 271 thou/uL (130-400) 11/14/18 07:00 Neutrophils % 54.0 % (42.0-75.0) 11/14/18 07:00 Sodium 129 mmol/L (136-145) L 11/14/18 07:00 Potassium 4.9 mmol/L (3.5-5.1) 11/14/18 07:00 Chloride 103 mmol/L (98-107) 11/14/18 07:00 Carbon Dioxide 17 mmol/L (23-31) L 11/14/18 07:00 BUN 17 mg/dL (8.4-25.7) 11/14/18 07:00 Creatinine 0.80 mg/dL (0.7-1.3) 11/14/18 07:00 Glucose 151 mg/dL (80-115) H 11/14/18 07:00 Lactic Acid 1.7 mmol/L (0.5-2.2) 11/14/18 07:00 Calcium 8.7 mg/dL (7.8-10.44) 11/14/18 07:00 Total Bilirubin 0.3 mg/dL (0.2-1.2) 11/14/18 07:00 AST 19 U/L (5-34) 11/14/18 07:00 ALT 10 U/L (8-55) 11/14/18 07:00 Alkaline Phosphatase 172 U/L (40-150) H 11/14/18 07:00 Creatine Kinase 24 U/L (30-200) L 11/14/18 07:00 Serum Total Protein 5.6 g/dL (5.8-8.1) L 11/14/18 07:00 Albumin 2.5 g/dL (3.4-4.8) L 11/14/18 07:00 Urine Ketones Negative mg/dL (Negative) 11/14/18 07:10 Urine Blood Moderate (Negative) H 11/14/18 07:10 Urine Nitrite Negative (Negative) 11/14/18 07:10 Ur Leukocyte Esterase Moderate (Negative) H 11/14/18 07:10 Urine RBC 0-3 HPF (0-3) 11/14/18 07:10 Urine WBC Greater Than 50-TNTC HPF (0-3) H 11/14/18 07:10 Ur Squamous Epith Cells 0-3 HPF (0-3) 11/14/18 07:10 Urine Bacteria 4+ HPF (None Seen) H 11/14/18 07:10 FMR H&P: A/P - Problem List (1) UTI (urinary tract infection) Current Visit: No Status: Acute (2) Adrenal insufficiency Current Visit: No Status: Chronic Code(s): E27.40 - UNSPECIFIED ADRENOCORTICAL INSUFFICIENCY (3) GERD (gastroesophageal reflux disease) Current Visit: No Status: Chronic Code(s): K21.9 - GASTRO-ESOPHAGEAL REFLUX DISEASE WITHOUT ESOPHAGITIS (4) Hx of kidney transplant Current Visit: No Status: Chronic (5) Hyperlipidemia Current Visit: No Status: Chronic Code(s): E78.5 - HYPERLIPIDEMIA, UNSPECIFIED (6) Hypothyroid Current Visit: No Status: Chronic Code(s): E03.9 - HYPOTHYROIDISM, UNSPECIFIED (7) IDDM (insulin dependent diabetes mellitus) Current Visit: No Status: Chronic Code(s): E11.9 - TYPE 2 DIABETES MELLITUS WITHOUT COMPLICATIONS; Z79.4 - FCI (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 OF INSULIN (8) Seizures Current Visit: No Status: Chronic Code(s): R56.9 - UNSPECIFIED CONVULSIONS - Plan UTI - outpt collection grew K. pneumoniae >100,000, sensitive to Ciprofloxacin - continue cipro - NS @ 120 ml/hr - monitor for improvement Hypothyroid -aware, continue home meds Adrenal insufficiency -Continue home cortef IDDM2 -Mild Sliding scale - ACHS accuchecks Macrocytic anemia, chronic -Hb around baseline -Continue home folic acid Prostate CA w/ mets -aware Recurrent N/V, chronic -improved COPD - Aware, continue home meds FMR H&P: Upper Level - Pertinent history 68 yo M with PMHx metastatic prostate cancer and frequent UTI presents with cc of dysuria since last Thursday. He was seen in clinic on by Dr. 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 Rx was changed to 500 BID and picked up Thursday - he has taken 2 days worth. symptoms are persistent and he is having increase in his diffuse chronic pain as well. Reports "pus" in urine today, no hematuria. Denies other generalized symptoms apart from pain. - Pertinent findings VSS, labs reviewed Gen: awake, alert, interactive HEENT: NCAT, slightly dry MM CV: RRR, no murmur RESP: CTAB ABD: soft, NTND EXT: no edema - Plan Date/Time: 11/14/18 1150 68 yo M with acute cystitis and hypotension outpatient 1. Acute cystitis - Culture from growing Klebsiella, sensitive to Cipro - Continue cipro and fluids - No CVAT or increasing focal pain - If fever, flank pain or any worsening sx, would consider renal sono vs. CT 2. Chronic pain - Relief with fentanyl in ED - Due to hemostatic/bone metastasis nature of pain, will give trial of Fentanyl patch Please see Dr. Peralta's note for remainder of comorbidity mgmt I, Joi Rahman, PGY-3 have evaluated this patient and agree with findings/plan as outlined by sports intern resident. Pertinent changes/additions are listed here. Addendum - Attending - Attending Attestation Date/Time: 11/14/18 6646 I personally evaluated the patient and discussed the management with Dr. Peralta. H &P repeated by me. I agree with the History, Examination, Assessment and Plan documented above with any addition or exceptions noted below. Patient is well known to me. He had a UA ordered by [facility] last Thursday that was dirty. Culture was somehow lost and he came to clinic on for eval. Given cipro outpatient but couldn't get until Thursday. Has taken 4 doses. Today went to ER because of severe dysuria and bone pain. Denies fever/ chills, hematuria. VSS Abd: soft, nt/nd, +bs. No CVA tenderness Diffuse muscle and bone pain. Labs and imaging reviewed. Complicated UTI- CPL was called and culture was growing Klebsiella sensitive to Cipro. Will give IVF and IV cipro. Chronic pain from metastatic prostate cancer-will start fentanyl patch Adrenal insuff- continue home oral steroids.
[2018-11-14] MEDS ORDERED: Dextrose 50% Abboject 50 ML SYRINGE SLOW IVP PRN (12:49)
[2018-11-14] MEDS ORDERED: Dextrose 5% in Water 1,000 ML IV PRN (12:49)
[2018-11-14] MEDS ORDERED: HumaLOG 300 UNITS/3 ML VIAL SC PRN ×2 (12:49)
[2018-11-14] MEDS ORDERED: Fentanyl 100 MCG/2 ML VIAL SLOW IVP PRN (12:55)
[2018-11-14] MEDS ORDERED: Ondansetron ODT 4 MG TAB SL PRN (13:12)
[2018-11-14] MEDS ORDERED: Ondansetron PF 4 MG/2 ML Vial IVP PRN (13:12)
[2018-11-14] MEDS ORDERED: Methyl Salicylate/Menthol 85 GM TUBE TOP PRN (18:45)
[2018-11-14] MEDS: Metoclopramide HCl 10 MG TAB PO SCH (21:00)
[2018-11-14] MEDS: Gabapentin 300 MG CAP PO SCH (21:00)
--- NOTE | 2018-11-15 07:52 | PDOC.FM ---
- Subjective Subjective: Patient reports that his symptoms have improved. He is no longer having dysuria , suprapubic pain, or urinary frequency. He denies any fevers, chills, nausea, vomiting. He is tolerating PO well. - Objective MAR Reviewed: Yes Vital Signs & Weight: Vital Signs (12 hours) Temp Pulse Resp BP Pulse Ox 11/15/18 04:00 98.2 F 96 20 96/58 L 97 11/15/18 00:00 98.3 F 97 20 111/68 98 Weight Weight 84.51 kg I&O: 11/14/18 11/15/18 11/16/18 06:59 06:59 06:59 Intake Total 2192 Output Total 100 Balance 2091 Result Diagrams: 11/14/18 07:00 11/14/18 07:00 Phys Exam - Physical Examination Constitutional: NAD HEENT: moist MMs, sclera anicteric Respiratory: no wheezing, no rales, no rhonchi, clear to auscultation bilateral Cardiovascular: RRR, no significant murmur, no rub Gastrointestinal: soft, non-tender, no distention, positive bowel sounds Musculoskeletal: no edema, pulses present Neurological: non-focal, moves all 4 limbs Psychiatric: normal affect, A&O x 3 Skin: normal turgor, cap refill <2 seconds Dx/Plan (1) Acute cystitis Code(s): N30.00 - ACUTE CYSTITIS WITHOUT HEMATURIA Status: Acute (2) Adrenal insufficiency Code(s): E27.40 - UNSPECIFIED ADRENOCORTICAL INSUFFICIENCY Status: Chronic (3) COPD (chronic obstructive pulmonary disease) Status: Chronic Qualifiers: COPD type: COPD with acute exacerbation Qualified Code(s): J44.1 - Chronic obstructive pulmonary disease with (acute) exacerbation (4) GERD (gastroesophageal reflux disease) Code(s): K21.9 - GASTRO-ESOPHAGEAL REFLUX DISEASE WITHOUT ESOPHAGITIS Status: Chronic (5) Hyperlipidemia Code(s): E78.5 - HYPERLIPIDEMIA, UNSPECIFIED Status: Chronic (6) IDDM (insulin dependent diabetes mellitus) Code(s): E11.9 - TYPE 2 DIABETES MELLITUS WITHOUT COMPLICATIONS; Z79.4 - CHIEF ORDER DISPATCHER (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 OF INSULIN Status: Chronic (7) Prostate cancer Code(s): C61 - MALIGNANT NEOPLASM OF PROSTATE Status: Chronic (8) Seizures Code(s): R56.9 - UNSPECIFIED CONVULSIONS Status: Chronic (9) Macrocytic anemia Code(s): D53.9 - NUTRITIONAL ANEMIA, UNSPECIFIED Status: Acute (10) Hx of kidney transplant Status: Chronic - Plan Plan: Acute Cystitis Outpt urine cx grew K. pneumoniae >100,000, sensitive to Ciprofloxacin. Symptomatically improved. - continue cipro Adrenal insufficiency -Doubled home hydrocortisone dose to 20mg qAM and 10mg qPM. -Plan to d/c home on 10mg BID IDDM2 -Mild Sliding scale -ACHS accuchecks -Continue 10U Lantus Macrocytic anemia, chronic Hb around baseline -Continue home folic acid Prostate CA w/ mets aware -Continue home pain med regimen History of R Kidney Transplant -Continue tacrolimus and cellcept Recurrent N/V, chronic -improved COPD No acute exacerbation at this time -continue home meds Seizure d/o -Continue home dilantin VTE ppx: SCD's Code status: Full Dispo: anticipate d/c home today pending labs with po cipro Addendum - Attending - Attending Attestation Date/Time: 11/15/18 [id number] I personally evaluated the patient and discussed the management with Dr. Gabriel. I agree with the History, Examination, Assessment and Plan documented above with any addition or exceptions noted below. Patient here with UTI that was not adequately treated outpatient due to difficulties with obtaining antibiotic. He is now on IV Cipro and doing much better. No complaints of UTI this morning. He is feeling somewhat drowsy due to the new Fentanyl that was begun at the recommendation by his PCP. Will monitor this afternoon and see how he is feeling but he may be able to discharge home later today.
[2018-11-15] MEDS: Tacrolimus 1 MG CAP PO SCH ×2 (08:35→20:20)
[2018-11-15] MEDS: Insulin Glargine 10 UNITS in Pre-Filled Syringe 1 EACH SC SCH (08:36)
[2018-11-15] MEDS: Allopurinol 100 MG TAB PO SCH (08:38)
[2018-11-15] MEDS: Amlodipine 5 MG TAB PO SCH (08:38)
[2018-11-15] MEDS: Gabapentin 300 MG CAP PO SCH ×2 (08:38→20:20)
[2018-11-15] MEDS: Atorvastatin Calcium 10 MG TAB PO SCH (08:38)
[2018-11-15] MEDS: Metoclopramide HCl 10 MG TAB PO SCH ×3 (08:39→20:21)
[2018-11-15] MEDS: Mycophenolate 250 MG CAP PO SCH (08:39)
[2018-11-15] MEDS: Digoxin 0.125 MG TAB PO SCH (08:39)
[2018-11-15] MEDS: Folic Acid 1 MG TAB PO SCH (08:39)
[2018-11-15] MEDS: Enoxaparin Sodium 40 MG/0.4 ML SYRINGE SC SCH (08:40)
[2018-11-15] MEDS: Potassium Chloride 20 MEQ TAB PO SCH ×2 (08:44→18:08)
[2018-11-15] MEDS: Hydrocortisone 10 mg Tablet PO SCH ×2 (08:44→18:08)
[2018-11-15] MEDS: Aspirin 325 mg Enteric Coated Tablet PO SCH (08:44)
[2018-11-15] MEDS ORDERED: Hydrocortisone 10 mg Tablet PO SCH (09:00)
[2018-11-15] MEDS: Bumetanide 1 MG TAB PO SCH (09:19)
[2018-11-15 10:57] LABS: #Basophils 0.1 thou/uL (0.0-0.2); #Eosinphils 0.2 thou/uL (0.0-0.7); #Lymphocytes 2.5 thou/uL (1.20-3.40); #Monocytes 0.8 thou/uL (0.11-0.59); #Neutrophils 6.1 thou/uL (1.40-6.50); %Basophils 0.5 % (0.0-1.0); %Eosinophils 1.6 % (0.0-10.0); %Lymphocytes 26.2 % (21.0-51.0); %Neutrophils 63.6 % (42.0-75.0); Hemoglobin 8.2 g/dL (14.0-18.0); Mean Corpuscular HGB CONC 32.5 g/dL (32.0-36.0); Mean Corpuscular Hemoglobin 30.9 pg (27.0-31.0); Mean Corpuscular Volume 95.1 fL (78.0-98.0); Mean Platelet Volume 6.3 fL (7.4-10.4); Platelet Count 255 thou/uL (130-400); RBC Distribution Width 17.7 % (11.5-14.5); Red Blood Cell (RBC) Count 2.64 mill/uL (4.70-6.10); White Blood Cell (WBC) Count 9.6 thou/uL (4.8-10.8)
[2018-11-15 11:17] LABS: Anion Gap 13 mmol/L (10-20); BUN (Urea Nitrogen) 13 mg/dL (8.4-25.7); Calc. Creatinine Clearance 113 mL/min (70-130); Calcium 8.2 mg/dL (7.8-10.44); Carbon Dioxide 15 mmol/L (23-31); Chloride 104 mmol/L (98-107); Estimated GFR-MDRD Greater than 90; Glucose 150 mg/dL (80-115); Potassium 4.6 mmol/L (3.5-5.1); Sodium 127 mmol/L (136-145)
[2018-11-15] MEDS ORDERED: HYDROcodone/Acetaminophen 7.5/325 mg Tablet PO PRN (14:00)
[2018-11-15] MEDS ORDERED: Acetaminophen 325 MG TAB PO PRN (16:07)
[2018-11-16] MEDS: Tacrolimus 1 MG CAP PO SCH (07:47)
[2018-11-16] MEDS: Allopurinol 100 MG TAB PO SCH (07:49)
[2018-11-16] MEDS: Insulin Glargine 10 UNITS in Pre-Filled Syringe 1 EACH SC SCH (07:50)
[2018-11-16] MEDS: Hydrocortisone 10 mg Tablet PO SCH ×2 (07:50→16:27)
[2018-11-16] MEDS: Digoxin 0.125 MG TAB PO SCH (07:51)
[2018-11-16] MEDS: Gabapentin 300 MG CAP PO SCH (07:51)
[2018-11-16] MEDS: Atorvastatin Calcium 10 MG TAB PO SCH (07:51)
[2018-11-16] MEDS: Amlodipine 5 MG TAB PO SCH (07:51)
[2018-11-16] MEDS: Potassium Chloride 20 MEQ TAB PO SCH ×2 (07:51→16:27)
[2018-11-16] MEDS: Enoxaparin Sodium 40 MG/0.4 ML SYRINGE SC SCH (07:51)
[2018-11-16] MEDS: Aspirin 325 mg Enteric Coated Tablet PO SCH (07:53)
[2018-11-16] MEDS: Folic Acid 1 MG TAB PO SCH (07:53)
[2018-11-16] MEDS: Mycophenolate 250 MG CAP PO SCH (07:53)
[2018-11-16] MEDS: Metoclopramide HCl 10 MG TAB PO SCH ×2 (07:53→16:27)
[2018-11-16] MEDS: Bumetanide 1 MG TAB PO SCH (07:54)
--- NOTE | 2018-11-16 08:49 | PDOC.FM ---
- Subjective Subjective: Patient reports that he felt better with fentanyl, but it did make him a little sleepy. Since it has been taken off his pain has returned and he took a norco about 15 minutes prior to my exam, but it hadn't resolved by then. He denies any dysuria, hematuria, suprapubic pain. - Objective MAR Reviewed: Yes Vital Signs & Weight: Vital Signs (12 hours) Temp Pulse Resp BP BP BP Pulse Ox 11/16/18 07:51 106 H 114/64 11/16/18 07:33 97.5 F L 106 H 20 114/64 94 L 11/16/18 04:00 97.5 F L 75 20 96/62 97 Weight Admit Weight 84.51 kg Weight 84.51 kg I&O: 11/15/18 11/16/18 11/17/18 06:59 06:59 06:59 Intake Total 2192 Output Total 100 Balance 2091 Result Diagrams: 11/16/18 09:09 11/16/18 09:09 Phys Exam - Physical Examination Constitutional: NAD HEENT: moist MMs, sclera anicteric Respiratory: no wheezing, no rales, no rhonchi, clear to auscultation bilateral Cardiovascular: no significant murmur, no rub tachycardic, regular rhythm Gastrointestinal: soft, non-tender, no distention, positive bowel sounds Musculoskeletal: no edema, pulses present Neurological: non-focal, moves all 4 limbs Psychiatric: normal affect, A&O x 3 Skin: normal turgor, cap refill <2 seconds Dx/Plan (1) Acute cystitis Code(s): N30.00 - ACUTE CYSTITIS WITHOUT HEMATURIA Status: Acute (2) Adrenal insufficiency Code(s): E27.40 - UNSPECIFIED ADRENOCORTICAL INSUFFICIENCY Status: Chronic (3) COPD (chronic obstructive pulmonary disease) Status: Chronic Qualifiers: COPD type: COPD with acute exacerbation Qualified Code(s): J44.1 - Chronic obstructive pulmonary disease with (acute) exacerbation (4) GERD (gastroesophageal reflux disease) Code(s): K21.9 - GASTRO-ESOPHAGEAL REFLUX DISEASE WITHOUT ESOPHAGITIS Status: Chronic (5) Hyperlipidemia Code(s): E78.5 - HYPERLIPIDEMIA, UNSPECIFIED Status: Chronic (6) IDDM (insulin dependent diabetes mellitus) Code(s): E11.9 - TYPE 2 DIABETES MELLITUS WITHOUT COMPLICATIONS; Z79.4 - FOOD AND BEVERAGE ASSISTANT (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 OF INSULIN Status: Chronic (7) Prostate cancer Code(s): C61 - MALIGNANT NEOPLASM OF PROSTATE Status: Chronic (8) Seizures Code(s): R56.9 - UNSPECIFIED CONVULSIONS Status: Chronic (9) Macrocytic anemia Code(s): D53.9 - NUTRITIONAL ANEMIA, UNSPECIFIED Status: Acute (10) Hx of kidney transplant Status: Chronic - Plan Plan: Acute Cystitis Outpt urine cx grew K. pneumoniae >100,000, sensitive to Ciprofloxacin. Symptomatically improved. Inpt urine cx grew E. coli resistant to fluoroquinolones and aminoglycosides. -Will stop cipro and start cefdinir Adrenal insufficiency -Doubled home hydrocortisone dose to 20mg qAM and 10mg qPM. -Plan to d/c home on 10mg BID IDDM2 -Mild Sliding scale -ACHS accuchecks -Continue 10U Lantus Macrocytic anemia, chronic Hb around baseline -Continue home folic acid Prostate CA w/ mets aware -Increased norco to 7.5mg History of R Kidney Transplant -Continue tacrolimus and cellcept Recurrent N/V, chronic -improved COPD No acute exacerbation at this time -continue home meds Seizure d/o -Continue home dilantin VTE ppx: SCD's Code status: Full Dispo: anticipate d/c home today pending labs with cefdinir Addendum - Attending - Attending Attestation Date/Time: 11/16/18 2471 I personally evaluated the patient and discussed the management with Dr. Gabriel. I agree with the History, Examination, Assessment and Plan documented above with any addition or exceptions noted below. Patient here with symptomatic UTI that is improving. Cultures have resulted and we are changing his abx therapy to adequate coverage. WBC stable and he is now overall asymptomatic. He also has had worsening bone pain due to his malignancy recently. He was initially placed on Fentany 25 TD, but this resulted in some sedation and gait instability. Looking back at his previous opiate requirement, this was a little higher dose that he was used to being on, but even the 12.5 of Fentanyl TD kept him sedated more than previous therapy. We will escalate [place] to 10mg q4h and add tramadol for breakthrough, which he has been using at home apparently. If we can get his pain under better control by this afternoon, he should be stable for discharge and will have escalation/modulation of pain control therapy by his PCP outpatient.
[2018-11-16] MEDS ORDERED: Cefdinir 300 MG CAP PO SCH (09:00)
[2018-11-16 09:20] LABS: #Basophils 0.1 thou/uL (0.0-0.2); #Eosinphils 0.1 thou/uL (0.0-0.7); #Lymphocytes 2.8 thou/uL (1.20-3.40); #Monocytes 0.7 thou/uL (0.11-0.59); #Neutrophils 7.8 thou/uL (1.40-6.50); %Basophils 0.5 % (0.0-1.0); %Eosinophils 0.5 % (0.0-10.0); %Lymphocytes 24.3 % (21.0-51.0); %Monocytes 6.4 % (0.0-10.0); %Neutrophils 68.3 % (42.0-75.0); Hemoglobin 7.8 g/dL (14.0-18.0); Mean Corpuscular HGB CONC 33.6 g/dL (32.0-36.0); Mean Corpuscular Hemoglobin 31.7 pg (27.0-31.0); Mean Corpuscular Volume 94.3 fL (78.0-98.0); Platelet Count 227 thou/uL (130-400); RBC Distribution Width 17.7 % (11.5-14.5); Red Blood Cell (RBC) Count 2.47 mill/uL (4.70-6.10); White Blood Cell (WBC) Count 11.4 thou/uL (4.8-10.8)
[2018-11-16 09:40] LABS: Anion Gap 10 mmol/L (10-20); BUN (Urea Nitrogen) 16 mg/dL (8.4-25.7); Calc. Creatinine Clearance 119 mL/min (70-130); Calcium 8.1 mg/dL (7.8-10.44); Carbon Dioxide 17 mmol/L (23-31); Chloride 103 mmol/L (98-107); Estimated GFR-MDRD Greater than 90; Glucose 139 mg/dL (80-115); Potassium 4.2 mmol/L (3.5-5.1); Sodium 126 mmol/L (136-145)
[2018-11-16] MEDS ORDERED: traMADol HCl 50 MG TAB PO PRN (10:01)
[2018-11-16] MEDS ORDERED: HYDROcodone/Acetaminophen 10/325 mg Tablet PO PRN (12:00)
[2018-11-16 18:15] VITALS: BP 92/48; TEMP 97.9
--- NOTE | 2018-11-18 00:48 | DIS ---
DATE OF ADMISSION: 11/14/2018 DATE OF DISCHARGE: 11/16/2018 ADMITTING ATTENDING: Josephine Christina MD. DISCHARGE ATTENDING: Edison Ureña MD. ADMITTING RESIDENT: Jesús Peralta DO. DISCHARGE RESIDENT: Maria A Gabriel MD. CONSULTS: None. PROCEDURES: None. PRIMARY DIAGNOSES: 1. Acute prostatitis. 2. Adrenal insufficiency. 3. Chronic pain secondary to bone metastases. SECONDARY DIAGNOSES: 1. Chronic obstructive pulmonary disease. 2. Gastroesophageal reflux disease. 3. Hyperlipidemia. 4. Insulin-dependent diabetes mellitus type 2. 5. Prostate cancer with metastases. 6. Seizures. 7. Macrocytic anemia. 8. History of kidney transplant. DISCHARGE MEDICATIONS: 1. [place] 10/325 one tablet q.4 hours p.r.n. severe pain. Dispensed #90. 2. Tramadol 50 mg p.o. q.6 hours p.r.n. moderate to severe pain, dispense #60. 3. Hydrocortisone 10 mg p.o. b.i.d. 4. Cefdinir 300 mg p.o. b.i.d. for 4 weeks. 5. Allopurinol 300 mg p.o. daily. 6. Amlodipine 2.5 mg p.o. daily. 7. Aspirin 325 mg p.o. daily. 8. Atorvastatin 10 mg p.o. daily. 9. Bumex 1 mg p.o. daily. 10. Colchicine 0.6 mg p.o. b.i.d. p.r.n. gout. 11. Digoxin 0.125 mg p.o. daily. 12. Folic acid 1 mg p.o. daily. 13. Gabapentin 300 mg p.o. q.a.m. and 900 mg q.p.m. 14. Lantus 10 units subcu q.a.m. 15. Magnesium oxide 400 mg p.o. b.i.d. 16. Reglan 10 mg p.o. t.i.d. 17. Metoprolol succinate 100 mg p.o. b.i.d. 18. CellCept 500 mg p.o. daily. 19. Pantoprazole 40 mg p.o. daily. 20. Phenytoin 100 mg p.o. b.i.d. 21. Potassium chloride 20 mEq p.o. b.i.d. with meals. 22. Tacrolimus 1 mg p.o. b.i.d. DISCONTINUED MEDICATIONS: [place] 5/325 mg p.o. q.4 hours p.r.n. HISTORY OF PRESENT ILLNESS/HOSPITAL COURSE: This is a 68-year-old male with past medical history of adrenal insufficiency, prostate cancer with metastases to the bone who presented due to prostatitis. The patient was found to have a urine culture outpatient that grew Klebsiella pneumoniae sensitive to Cipro. The patient had not been fully treated, was found to have continued symptoms and was admitted and started on IV Cipro. The patient symptomatically improved. He had a repeat urine culture done in the hospital that grew out E coli resistant to fluoroquinolones, aminoglycosides. The Cipro was stopped at this time and cefdinir was started as this was resistant to Cipro. The patient was presumed to have prostatitis due to his history of prostate cancer with recurrent urinary tract infections growing multiple different bugs. The patient was discharged home on 4 weeks of cefdinir. The patient has a history of adrenal insufficiency and due to his infection, his home dose of hydrocortisone was increased to 20 mg q.a.m. and 10 mg q.p.m. The patient was then discharged home on 10 mg q.a.m. and 10 mg q.p.m. The patient has a history of prostate cancer with metastases to the bone and chronic pain due to this. The patient had been previously on [place] 5s, however, this was not adequately controlling the patient's pain. It was attempted to start the patient on fentanyl patch, however, this caused the patient to feel very sleepy, so instead his [place] was increased to 10 mg tablets. The patient was also restarted on his tramadol as his nausea and vomiting were stable. The patient's pain was very well controlled with this regimen at the time of discharge. The patient was instructed to follow up with his PCP and if his pain continued to worsen, to consider attempting fentanyl patch again. The patient was able to be discharged on 11/16/2018, in stable condition, however, with a guarded prognosis due to his multiple comorbidities. DISCHARGE INSTRUCTIONS: 1. Location: Home. 2. Diet: Diabetic diet. 3. Activity: As tolerated. 4. Follow up with Dr. Christina within 7 days. Job ID: [id number]
== END 2018-11-16 18:46 | disposition home or self-care (01) ==
LOC: SCSER 06:11 → T4-B 09:38
PROVIDERS: ADMIT Family Medicine; ATTEND Family Medicine
DX: N30.00 Acute cystitis without hematuria (principal); B96.20 Unspecified Escherichia coli [E. coli] as the cause of diseases classified elsewhere; B96.1 Klebsiella pneumoniae [K. pneumoniae] as the cause of diseases classified elsewhere; C61 Malignant neoplasm of prostate; C79.51 Secondary malignant neoplasm of bone; G89.3 Neoplasm related pain (acute) (chronic); E27.40 Unspecified adrenocortical insufficiency; E11.9 Type 2 diabetes mellitus without complications; E78.5 Hyperlipidemia, unspecified; J44.9 Chronic obstructive pulmonary disease, unspecified; M10.9 Gout, unspecified; I11.0 Hypertensive heart disease with heart failure; I50.30 Unspecified diastolic (congestive) heart failure; G40.909 Epilepsy, unspecified, not intractable, without status epilepticus; K21.9 Gastro-esophageal reflux disease without esophagitis; E03.9 Hypothyroidism, unspecified; D53.9 Nutritional anemia, unspecified; Z79.4 Long term (current) use of insulin; Z79.52 Long term (current) use of systemic steroids; Z79.82 Long term (current) use of aspirin; Z79.899 Other long term (current) drug therapy; Z88.0 Allergy status to penicillin; Z88.1 Allergy status to other antibiotic agents; Z88.5 Allergy status to narcotic agent; Z88.6 Allergy status to analgesic agent; Z88.8 Allergy status to other drugs, medicaments and biological substances; Z91.013 Allergy to seafood; Z91.040 Latex allergy status; Z94.0 Kidney transplant status; Z16.29 Resistance to other single specified antibiotic; Z16.23 Resistance to quinolones and fluoroquinolones
CPT/HCPCS: 80048 ×2; 80053; 82550; 82962 ×3; 83605; 84484; 85025 ×3; 87040; 87077; 87086; 87186; 93005; 96361; 96365; 96367 ×3; 96372 ×2; 96375; 96376 ×2; 99284; G0378 ×3; 36416; 81003; 81015; J0696; J0744; J1642; J1650; J1825; J1956; J2405; J3010; J3490; J7507; J7517; J8597

== ENCOUNTER 2018-12-07 13:00 | Emergency (ER) | payer MEDICARE ==
[2018-12-07 13:46] LABS: Hemoglobin 7.7 g/dL (14.0-18.0); Mean Corpuscular HGB CONC 31.5 g/dL (32.0-36.0); Mean Corpuscular Hemoglobin 30.6 pg (27.0-31.0); Mean Corpuscular Volume 97.1 fL (78.0-98.0); Mean Platelet Volume 4.6 fL (7.4-10.4); Platelet Count 260 thou/uL (130-400); RBC Distribution Width 23.1 % (11.5-14.5); Red Blood Cell (RBC) Count 2.52 mill/uL (4.70-6.10); White Blood Cell (WBC) Count 9.1 thou/uL (4.8-10.8)
[2018-12-07 13:56] LABS: #Basophils 0.1 thou/uL (0.0-0.2); #Eosinphils 0.1 thou/uL (0.0-0.7); #Lymphocytes 3.6 thou/uL (1.20-3.40); #Monocytes 0.8 thou/uL (0.11-0.59); #Neutrophils 4.5 thou/uL (1.40-6.50); %Basophils 1.1 % (0.0-1.0); %Eosinophils 1.1 % (0.0-10.0); %Lymphocytes 39.1 % (21.0-51.0); %Monocytes 8.9 % (0.0-10.0); %Neutrophils 49.8 % (42.0-75.0); Anisocytosis SLIGHT = 6-15 cells (100X) (0-5/hpf); Bite Cells SLIGHT = 2-5 cells (100X) (0-1/hpf); Helmet Cells SLIGHT = 2-5 cells (100X) (0-1/hpf); Hypochromia SLIGHT = 6-15 cells (100X) (0-5/hpf); MDiff Complete? YES; Microcytosis SLIGHT = 6-15 cells (100X) (0-5/hpf); Ovalocytes SLIGHT = 2-5 cells (100X) (0-1/hpf); Platelet Morphology Comment Appears Adequate; Poikilocytosis SLIGHT = 6-15 cells (100X) (0-5/hpf); Schistocytes SLIGHT = 2-5 cells (100X) (0-1/hpf); Tear Drops SLIGHT = 2-5 cells (100X) (0-1/hpf)
[2018-12-07 14:03] LABS: ALT (SGPT) 8 U/L (8-55); AST (SGOT) 13 U/L (5-34); Albumin 2.5 g/dL (3.4-4.8); Alkaline Phosphatase 305 U/L (40-150); Anion Gap 17 mmol/L (10-20); BUN (Urea Nitrogen) 14 mg/dL (8.4-25.7); Bilirubin, Total 0.4 mg/dL (0.2-1.2); Calc. Creatinine Clearance 0 mL/min (70-130); Calcium 8.3 mg/dL (7.8-10.44); Carbon Dioxide 16 mmol/L (23-31); Chloride 106 mmol/L (98-107); Estimated GFR-MDRD Greater than 90; Globulin 3.1 g/dL (2.4-3.5); Glucose 125 mg/dL (80-115); Potassium 4.1 mmol/L (3.5-5.1); Protein, Total 5.6 g/dL (5.8-8.1); Sodium 135 mmol/L (136-145)
--- NOTE | 2018-12-07 14:42 | RAD ---
PORTABLE CHEST ONE VIEW: 12/07/18 at 1:43 p.m. HISTORY: Mental status changes. FINDINGS: Comparison is made with exam of 10/01/18. A left sided Port-A-Cath is present with tip in the projection of the SVC. The heart size is normal. The aorta is tortuous. The lungs are well expanded without lobar consolidation, pneumothoraces or pl eural effusions. Osseous sclerotic changes consistent with metastatic disease again seen. IMPRESSION: No acute process. POS: ABDOUL
[2018-12-07] MEDS ORDERED: Lorazepam 2 MG/ML VIAL ONE (15:06)
--- NOTE | 2018-12-07 15:36 | CT ---
CT ABDOMEN AND PELVIS: HISTORY: Prostate cancer. Pain. COMPARISON: 09/19/2018 TECHNIQUE: Multiple contiguous axial images were obtained in a CT of the abdomen and pelvis with IV contrast. C oronal reformats were performed. FINDINGS: Lower Chest: Wwithin normal limits. Vessels: Visualized aorta has a normal caliber. Heart: Normal heart size. There are coronary artery calcifications. Abdomen: Portal vein: Patent. Gallbladder: Surgically absent. Liver: Limited evaluation due to beam attenuation artifact and motion. Grossly no abnormality. Pancreas: Limited evaluation due to beam attenuation artifact and motion. Grossly no abnormality. Spleen: Limited evaluation due to beam attenuation artifact and motion. Grossly no abnormality. Adrenals: Suboptimally evaluated. Kidneys: Bilateral renal cortical atrophy. Unremarkable left intrarenal and extrarenal collecting s ystem. Severe dilatation of the right intrarenal collecting system secondary to a solitary calculus noted in the mid portion of the ureter. The degree of dilatation has not changed. Transpla nted kidney in the right hemipelvis without associated obstructive uropathy. Peritoneum: Limited evaluation due to motion. No mesenteric mass, lymphadenopathy, free air, or brendan e fluid. Bowel: Limited evaluation due to technique and motion. No evidence of bowel obstruction. Normal ca liber appendix. Diverticulosis. No evidence of diverticulitis. Mucosal prominence of the sigmoid colon likely due to inadequate distention. Mesentery and Retroperitoneum: No enlarged mesenteric or retroperitoneal lymph nodes. Abdominal Wall : Previous ventral hernia repair. Pelvis: Reproductive Organs: Surgical clips, compatible with previous prostatectomy. Pelvis: There does appear to be a stable soft tissue mass in the right pelvis, anterior to the right superior pubic ramus, measuring 2.8 x 1.5 cm. This mass is medial to the right common femoral artery and vein. Bladder: Wwithin normal limits. Bones: Diffuse multifocal sclerotic lesions compatible with osseous metastases. Findings are simila r to the previous examination. IMPRESSION: 1. Diverticulosis. No evidence of diverticulitis. 2. Normal caliber appendix. 3. Stable dilatation of the [place] right intrarenal and extrarenal collecting system. Stable appeara nce of a transplanted kidney in the right lower quadrant. 4. Diffuse osseous metastases. Transcribed Date/Time: 12/07/2018 3:48 PM
--- NOTE | 2018-12-07 15:42 | CT ---
Exam: Head CT without contrast HISTORY: Altered mental status COMPARISON: 08/28/2018 FINDINGS: Hemorrhage: No intraparenchymal hemorrhage or extra-axial hematoma. Brain parenchyma: Cortical chong-white matter differentiation is preserved. No mass effect or midline shift. Basilar cisterns are patent.Age-appropriate atrophy. Ventricular system: Ventricles and sulci are patent and symmetric. Calvarium: Intact. Sinuses and mastoid air cells: Adequate aeration. IMPRESSION: No acute intracranial process.
[2018-12-07 16:29] LABS: Bilirubin Small (Negative); Blood, Urine Negative (Negative); Clarity Clear (Clear); Glucose, Urine (Dipstick) Negative (Negative); Leukocyte Negative (Negative); Nitrite Negative (Negative); Protein, Urine (Dipstick) Trace mg/dL (Neg-Trace); Specific Gravity, Urine 1.015 (1.005-1.030); Urobilinogen 0.2 mg/dL (0.2-1.0)
== END 2018-12-07 17:00 | disposition home or self-care (01) ==
LOC: SCSER 13:00
DX: E86.0 Dehydration (principal); R41.0 Disorientation, unspecified; M19.90 Unspecified osteoarthritis, unspecified site; E66.9 Obesity, unspecified; I47.1 Supraventricular tachycardia; I12.9 Hypertensive chronic kidney disease with stage 1 through stage 4 chronic kidney disease, or unspecified chronic kidney disease; N18.3 Chronic kidney disease, stage 3 (moderate); E03.9 Hypothyroidism, unspecified; K21.9 Gastro-esophageal reflux disease without esophagitis; E78.5 Hyperlipidemia, unspecified; J44.9 Chronic obstructive pulmonary disease, unspecified; Z79.899 Other long term (current) drug therapy; Z79.82 Long term (current) use of aspirin; Z79.4 Long term (current) use of insulin
CPT/HCPCS: 51701; 70450; 71045; 74177; 80053; 81003; 85025; 93005; 96361; 96374; J1642; J2060; Q9967

== ENCOUNTER 2018-12-09 09:58 | Inpatient (IN) | payer MEDICARE ==
[2018-12-09] MEDS ORDERED: Gadobenate Dimeglumine 529 MG/1 ML (20ML VIAL) ONE (10:13)
[2018-12-09] MEDS ORDERED: Lorazepam 2 MG/ML VIAL ONE (11:10)
[2018-12-09 11:14] LABS: Hemoglobin 7.8 g/dL (14.0-18.0); Mean Corpuscular HGB CONC 32.4 g/dL (32.0-36.0); Mean Corpuscular Hemoglobin 31.7 pg (27.0-31.0); Mean Corpuscular Volume 97.8 fL (78.0-98.0); RBC Distribution Width 20.5 % (11.5-14.5); Red Blood Cell (RBC) Count 2.45 mill/uL (4.70-6.10); White Blood Cell (WBC) Count 10.1 thou/uL (4.8-10.8)
[2018-12-09 11:38] LABS: ALT (SGPT) 9 U/L (8-55); AST (SGOT) 15 U/L (5-34); Albumin 2.7 g/dL (3.4-4.8); Alkaline Phosphatase 328 U/L (40-150); Anion Gap 20 mmol/L (10-20); BUN (Urea Nitrogen) 13 mg/dL (8.4-25.7); Bilirubin, Total 0.5 mg/dL (0.2-1.2); CK (CPK) 27 U/L (30-200); Calc. Creatinine Clearance 0 mL/min (70-130); Calcium 8.3 mg/dL (7.8-10.44); Carbon Dioxide 13 mmol/L (23-31); Chloride 110 mmol/L (98-107); Estimated GFR-MDRD Greater than 90; Globulin 2.4 g/dL (2.4-3.5); Glucose 137 mg/dL (80-115); Protein, Total 5.1 g/dL (5.8-8.1); Sodium 139 mmol/L (136-145)
[2018-12-09 11:49] LABS: #Basophils 0.1 thou/uL (0.0-0.2); #Eosinphils 0.2 thou/uL (0.0-0.7); #Lymphocytes 4.9 thou/uL (1.20-3.40); #Monocytes 0.8 thou/uL (0.11-0.59); #Neutrophils 4.2 thou/uL (1.40-6.50); %Basophils 0.9 % (0.0-1.0); %Eosinophils 1.6 % (0.0-10.0); %Lymphocytes 48.4 % (21.0-51.0); %Monocytes 7.7 % (0.0-10.0); %Neutrophils 41.4 % (42.0-75.0); MDiff Complete? YES; Mean Platelet Volume 6.1 fL (7.4-10.4); Platelet Count 280 thou/uL (130-400); Platelet Morphology Comment Appears Adequate; Polychromasia SLIGHT = 2-3 cells (100X) (0-2/hpf)
--- NOTE | 2018-12-09 12:35 | RAD ---
PORTABLE CHEST ONE VIEW: 12/09/18 at 10:48 a.m. HISTORY: Altered mental status. Slurred speech. Generalized weakness. FINDINGS: Comparison made with exam of 12/07/18. Left sided Port-A-Cath remains in place. The heart size is norm al. The aorta is tortuous. The lungs are expanded without focal areas of consolidations, pneumothorac es, or pleural effusions. Sclerotic osseous changes consistent with metastatic disease are again not ed. IMPRESSION: No acute process. POS: OFF
--- NOTE | 2018-12-09 12:37 | CT ---
CT OF THE BRAIN WITHOUT CONTRAST: HISTORY: Altered mental status. COMPARISON: CT brain 12/07/2018. FINDINGS: No acute hemorrhage. There is a subtle right anterior inferior cerebellar hypodensity. No midline s hift. No mass effect. The calvarium is intact. Paranasal sinuses and mastoids are clear. IMPRESSION: Subtle right anterior inferior cerebellar hypodensity which is asymmetric. A followup MRI with and w ithout contrast recommended. POS: CET
[2018-12-09] MEDS ORDERED: Aspirin 325 MG TAB ONE (13:42)
--- NOTE | 2018-12-09 13:53 | PDOC.FPRHP ---
- History of Present Illness Chief Complaint: slurred speech History of Present Illness: This is a 68 yo AA M w/ a PMH significant for adrenal insufficiency, prostate cancer, DMII, CKD, and anemia. He presents to the ER via EMS from the [facility] for slurred speech. The patients is at the beside who was able to provide the hx. She states that the patient started w/ symptoms on Thursday of slurred speech and confusion. She states that he was very restless Thursday night , wanting to get up often. She states that he has had trouble with word finding and will say "inappropriate" terms such as when saying he needs to go to the bathroom he will ask for a blanket. He was seen in the ER [address] Iraheta for AMS and dehydration. Dr. Iraheta states he did a CT at that time which was normal. The states that the patient has been weak overall but not more weak on one side vs the other. She has not noticed a facial droop. She states that she feels her understands everything she is saying but is having trouble with the words. She states that over the last few days the patient mentioned intermittently that he couldn't see out of his eyes. He is also complaining of pain in his b/l legs. He denies any chest pain, palpitations, fever, chills, headaches or abdominal pain. The patient is able to nod and shake his head and follow commands but is unable to converse normally. ED Course: ASA, 126mcg digoxin, 100mg metoprolol, 1L NS, 1mg ativan - Allergies/Adverse Reactions Allergies Allergy/AdvReac Type Severity Reaction Status Date / Time Latex, Natural Rubber Allergy Verified 12/09/18 17:21 morphine Allergy Verified 12/09/18 17:21 NSAIDS (Non-Steroidal Allergy Verified 12/09/18 17:21 Anti-Inflamma Penicillins Allergy Severe Verified 12/09/18 17:21 Hives povidone-iodine Allergy Rash Verified 12/09/18 17:21 [From Betadine] shellfish derived Allergy Verified 12/09/18 17:21 Tetracyclines Allergy Verified 12/09/18 17:21 lisinopril AdvReac Mild COUGHING Verified 12/09/18 17:21 - Home Medications Medication Instructions Recorded Confirmed Type Aspirin [Aspirin EC] 325 mg PO DAILY 02/18/15 12/09/18 History Colchicine 0.6 mg PO BID PRN #60 tab 09/03/18 12/09/18 Rx Digoxin [Lanoxin] 0.125 mg PO DAILY #30 tab 09/03/18 12/09/18 Rx Folic Acid [Folvite] 1 mg PO DAILY #30 tab 09/03/18 12/09/18 Rx Allopurinol 300 mg PO DAILY 09/07/18 12/09/18 History Metoclopramide HCl [Reglan] 10 mg PO TID 30 Days #90 tab 09/16/18 12/09/18 Rx Amlodipine Besylate [amLODIPine 1 tab PO DAILY 10/02/18 12/09/18 History Besylate] Atorvastatin Calcium [Lipitor] 10 mg PO DAILY 10/02/18 12/09/18 History Gabapentin [Neurontin] 300 mg PO QAM 10/02/18 12/09/18 History Gabapentin [Neurontin] 900 mg PO HS 10/02/18 12/09/18 History Magnesium Oxide [Mag-Oxide] 400 mg PO BID 10/02/18 12/09/18 History Metoprolol Succinate [Toprol Xl] 100 mg PO BID 10/02/18 12/09/18 History Ondansetron [Zofran ODT] 1 tab PO Q6HR PRN 10/02/18 12/09/18 History Mycophenolate [Cellcept] 500 mg PO BID 11/15/18 12/09/18 History Cefdinir [Omnicef] 300 mg PO BID #60 cap 11/16/18 12/09/18 Rx HYDROcodone Bit/APAP 10/325 [[place]] 1 tab PO Q4H PRN #90 tab 11/16/18 12/09/18 Rx traMADol HCl [Ultram] 50 mg PO Q6H PRN #60 tab 11/16/18 12/09/18 Rx Albuterol Sulfate [Proventil Hfa] 2 puff INH Q4H PRN 12/09/18 12/09/18 History Diphenoxylate HCl/Atropine 1 tablet PO Q6HR PRN 12/09/18 12/09/18 History [Lomotil] Fluticasone Propionate [Flonase 2 spray EA NARE DAILY 12/09/18 12/09/18 History Nasal [place]] Pen Needle, Diabetic [Insulin Pen 1 each MC Q4HR PRN 12/09/18 12/09/18 History Needle] Phenytoin Sodium Extended 1 capsule PO BID 12/09/18 12/09/18 History [Dilantin] Polyethylene Glycol 3350 [Miralax] 1 packet PO DAILY PRN 12/09/18 12/09/18 History Potassium Chloride [K-Dur] 20 meq PO DAILY 12/09/18 12/09/18 History Tacrolimus 1 mg PO BID 12/09/18 12/09/18 History - History PMHx: Adrenal insuff., metastatic prostate CA on oral chemotherapy, HTN, HLD, IDDM2, COPD, Gout, Seizure disorder, HFpEF PSHx: Renal transplant, hernia x3, cholecystecomy FHx: CAD, DM2 Social: denies t/e/d - Review of Systems General: denies: fever/chills, weight/appetite/sleep changes, night sweats, fatigue Eyes: reports: vision changes ENT: denies: nasal congestion, rhinorrhea Respiratory: denies: cough, congestion, shortness of breath Cardiovascular: denies: chest pain, palpitation, edema, paroxysmal nocturnal dyspnea, orthopnea Gastrointestinal: reports: nausea, vomiting, diarrhea. denies: constipation, abdominal pain, GI bleeding Genitourinary: denies: dysuria Skin: denies: rashes, lesions Musculoskeletal: reports: pain. denies: stiffness, swelling Neurological: reports: weakness. denies: seizure - Vital signs BP: 124/77, Pulse: 125 (Irregular), Resp: 20 (Non-Labored), Temp: 97.6 (Oral), Pain: 0, O2 sat: 98 on Room Air, Time: 12/09/2018 10:03. BP: 127/77, Pulse: 115, Resp: 18, Pain: 0, O2 sat: 100 on RA, Time: 12/09/2018 13 :49. - Physical Exam Constitutional: NAD, well developed -Constitutional: awake and alert HEENT: normocephalic and atraumatic, EOMI, no scleral icterus, grossly normal hearing -HEENT: MM dry, poor dentition Neck: supple, FROM Chest: no-tender to palpation, no lesions Heart: normal S1/S2, no murmurs/rubs/gallops, pulses present, no edema -Heart: tachycardic Lungs: CTAB, no respiratory distress, good air movement, no rales/rhonchi, no wheezing, no retractions Abdomen: soft, non-tender, bowel sounds present, no masses/distention Musculoskeletal: normal structure, normal tone Neurological: CN II-XII intact -Neurological: Strength: LUE 3/5, RUQ 5/5; RLE and LLE 0/5, sensation intact; unable to perform seat-dj-ausc test; dysmetria present Skin: no rash/lesions -Skin: decreased turgor, >2sec cap refill Heme/Lymphatic: no unusual bruising or bleeding, no purpura, no petechia Psychiatric: normal mood and affect FMR H&P: Results - Labs Result Diagrams: 12/09/18 10:46 12/09/18 10:46 Lab results: WBC 10.1 thou/uL (4.8-10.8) 12/09/18 10:46 Hgb 7.8 g/dL (14.0-18.0) L 12/09/18 10:46 Hct 24.0 % (42.0-52.0) L 12/09/18 10:46 MCV 97.8 fL (78.0-98.0) 12/09/18 10:46 Plt Count 280 thou/uL (130-400) 12/09/18 10:46 Neutrophils % 41.4 % (42.0-75.0) L 12/09/18 10:46 Sodium 139 mmol/L (136-145) 12/09/18 10:46 Potassium 4.0 mmol/L (3.5-5.1) 12/09/18 10:46 Chloride 110 mmol/L (98-107) H 12/09/18 10:46 Carbon Dioxide 13 mmol/L (23-31) L 12/09/18 10:46 BUN 13 mg/dL (8.4-25.7) 12/09/18 10:46 Creatinine 0.75 mg/dL (0.7-1.3) 12/09/18 10:46 Glucose 137 mg/dL (80-115) H 12/09/18 10:46 Calcium 8.3 mg/dL (7.8-10.44) 12/09/18 10:46 Total Bilirubin 0.5 mg/dL (0.2-1.2) 12/09/18 10:46 AST 15 U/L (5-34) 12/09/18 10:46 ALT 9 U/L (8-55) 12/09/18 10:46 Alkaline Phosphatase 328 U/L (40-150) H 12/09/18 10:46 Ammonia 34 umol/L (18-72) 12/09/18 10:46 Creatine Kinase 27 U/L (30-200) L 12/09/18 10:46 Serum Total Protein 5.1 g/dL (5.8-8.1) L 12/09/18 10:46 Albumin 2.7 g/dL (3.4-4.8) L 12/09/18 10:46 - Radiology Interpretation CT scan - head Status: report reviewed by me (subtle right ant inferior cerebellar hypodensity which is asymmetric) Chest x-ray Status: report reviewed by me (no acute process) FMR H&P: A/P - Problem List (1) Aphasia Current Visit: Yes Status: Acute Code(s): R47.01 - APHASIA (2) Adrenal insufficiency Current Visit: No Status: Chronic Code(s): E27.40 - UNSPECIFIED ADRENOCORTICAL INSUFFICIENCY (3) CAD (coronary artery disease) Current Visit: No Status: Chronic Code(s): I25.10 - ATHSCL HEART DISEASE OF [place] CORONARY ARTERY W/O ANG PCTRS Qualifiers: Coronary Disease-Associated Artery/Lesion type: [place] artery Associated angina: without angina (4) CKD (chronic kidney disease) stage 3, GFR 30-59 ml/min Current Visit: No Status: Chronic (5) COPD (chronic obstructive pulmonary disease) Current Visit: No Status: Chronic Qualifiers: COPD type: COPD with acute exacerbation Qualified Code(s): J44.1 - Chronic obstructive pulmonary disease with (acute) exacerbation (6) GERD (gastroesophageal reflux disease) Current Visit: No Status: Chronic Code(s): K21.9 - GASTRO-ESOPHAGEAL REFLUX DISEASE WITHOUT ESOPHAGITIS (7) Hx of kidney transplant Current Visit: No Status: Chronic (8) Hyperlipidemia Current Visit: No Status: Chronic Code(s): E78.5 - HYPERLIPIDEMIA, UNSPECIFIED (9) Hypothyroid Current Visit: No Status: Chronic Code(s): E03.9 - HYPOTHYROIDISM, UNSPECIFIED (10) IDDM (insulin dependent diabetes mellitus) Current Visit: No Status: Chronic Code(s): E11.9 - TYPE 2 DIABETES MELLITUS WITHOUT COMPLICATIONS; Z79.4 - INTERMEDIATE (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 OF INSULIN (11) Morbid obesity with BMI of 40.0-44.9, adult Current Visit: No Status: Chronic Code(s): E66.01 - MORBID (SEVERE) OBESITY DUE TO EXCESS CALORIES; Z68.41 - BODY MASS INDEX (BMI) 40.0-44.9, ADULT (12) Normocytic anemia Current Visit: No Status: Chronic Code(s): D64.9 - ANEMIA, UNSPECIFIED (13) JUDI on CPAP Current Visit: No Status: Chronic Code(s): G47.33 - OBSTRUCTIVE SLEEP APNEA (ADULT) (PEDIATRIC) (14) Prostate cancer Current Visit: No Status: Chronic Code(s): C61 - MALIGNANT NEOPLASM OF PROSTATE - Plan Aphasia 2/2 CVA vs Metastatic disease vs Adrenal insufficiency Patient presenting w/ 3 days of slurred speech. CT showing hypodense lesion in right anterior inferior cerebellum, no hemorrhage. - Will f/u CT w/ MRI to rule out ischemic stroke - Pending MRI results will consult neurology - Will give patient a loading dose of steroids (dexamethasone) and continue on hydrocortisone - s/p 1L bolus in ED, will give another bolus and start mIVF - Stroke team consulted, speech, PT/OT consulted; Fall precautions - Patient sees Dr. Coon for prostate cancer, can consider consulting - Palliative care consulted. They have seen patient multiple times. Would appreciate recs for goals of care and for patient to potentially go home with palliative services. - Admit to stroke, inpatient for further work up Adrenal insufficiency - see above Hypothyroid - Will check TSH DDM2 - Mild Sliding scale Macrocytic anemia, chronic - Hb around baseline - Continue home folic acid Prostate CA w/ mets - Continue home medications, patient recently saw [facility] who states patient too weak to continue with chemotherapy Recurrent N/V, chronic - zofran PRN COPD - duonebs PRN Code: FULL DVT ppx: lovenox GI ppx: none PCP: [facility] Dispo: > 2 midnights Case discussed with Dr. Reagan FMR H&P: Upper Level - Pertinent history 68 yo AAM with PMH of metastatic prostate CA, adrenal insufficiency, COPD and IDDM2 presenting with slurred speech since Thursday, poor oral intake, and inability to take medications. - Pertinent findings tachycardic, other VSS - Plan Date/Time: 12/09/18 1351 I, Niles Fernandez MD PGY3, have evaluated this patient and agree with findings/ plan as outlined by food and beverage intern resident. Pertinent changes/additions are listed here. 1. Acute encephalopathy 2/2 CVA vs metastatic disease vs adrenal crisis -Pt presents with AMS, poor PO intake, and medication noncompliance. He has presented similarly multiple times in the past and improved markedly with steroid administration. -CT brain shows new asymmetric cerebellar hypodensity with recommendation for MRI brain to further assess. -Admit to stroke and obtain MRI brain with stroke precautions. Consult stroke team including speech for assessment of swallowing. -Start pt on Dexamethasone 4 mg IVP BID and restart oral steroids when able. -Continue mIVF. -Consult palliative care. PPx: Lovenox for VTE, Protonix for GI. FULL code dispo: Admit to inpatient stroke for anticipated length of stay greater than two midnights, pending clinical course. Addendum - Attending - Attending Attestation Date/Time: 12/10/18 0915 I personally evaluated the patient and discussed the management with Dr. Wilkins I agree with the History, Examination, Assessment and Plan documented above with any addition or exceptions noted below - 68 yo AA M w/ a PMH significant for adrenal insufficiency, prostate cancer, DMII, CKD, and anemia sent from clinic to ER for slurred speech. reports that symptoms started on Thursday with slurred speech and confusion. She states that he was very restless Thursday night, wanting to get up often. She states that he has had trouble with word finding and will say "inappropriate" terms such as when saying he needs to go to the bathroom he will ask for a blanket. He was seen in the ER [address] Iraheta for AMS and dehydration. Dr. Iraheta states he did a CT at that time which was normal. The states that the patient has been weak overall but not more weak on one side vs the other. He is complaining of trouble with his vision but unable to specify if it's blurry or double vision. Does endorse some dizziness. Denies any fever/chills. Had 1 episode of vomiting on Thursday. Decreased appetite since Thursday. PMH/PSH/Meds/All reviewed and agree with resident's documentation. Afebrile VSS Exam repeated by me and agree with resident's findings- mild left sided facial droop, generalized weakness L slightly greater than right. Normal ROM b/l. tongue midline.
[2018-12-09] MEDS ORDERED: Digoxin 0.125 MG TAB ONE (14:16)
[2018-12-09] MEDS ORDERED: Labetalol HCl 100 MG/20 ML VIAL SLOW IVP PRN (14:17)
[2018-12-09] MEDS ORDERED: Acetaminophen 650 MG Suppository PR PRN (14:17)
[2018-12-09] MEDS ORDERED: Acetaminophen 325 MG TAB PO PRN (14:17)
[2018-12-09] MEDS ORDERED: Ondansetron ODT 4 MG TAB PO PRN (14:17)
[2018-12-09] MEDS ORDERED: Lactated Ringer's 1,000 ML IV SCH (14:30)
[2018-12-09] MEDS ORDERED: Dextrose 50% Abboject 50 ML SYRINGE SLOW IVP PRN (14:40)
[2018-12-09] MEDS ORDERED: HumaLOG 300 UNITS/3 ML VIAL SC PRN (14:40)
[2018-12-09] MEDS ORDERED: Dextrose 5% in Water 1,000 ML IV PRN (14:40)
[2018-12-09] MEDS ORDERED: guaiFENesin ER 600 MG TAB PO PRN (14:40)
[2018-12-09 15:29] VITALS: BMI 26.0
[2018-12-09] MEDS ORDERED: Lorazepam 2 MG/ML VIAL SLOW IVP SCH (16:00)
[2018-12-09] MEDS ORDERED: Dexamethasone 4 MG in Sodium Chloride 0.9% 50 ML IVPB SCH (16:30)
--- NOTE | 2018-12-09 17:29 | MRI ---
MRI BRAIN WITH AND WITHOUT CONTRAST: DATE: 12/09/2018 HISTORY: 68-year-old male with metastatic prostate cancer with abnormal lesion found on recent brain CT. COMPARISON: Noncontrast MRI 08/31/2018. Noncontrast CT 12/09/2018. TECHNIQUE: Multiplanar, multisequence MRI of the brain performed pre- and post-IV injection of gadolinium based contrast agent. FINDINGS: There is an approximately 2.5 x 2 x 2 cm mildly enhancing soft tissue mass originating from, and dest roying bone of the left greater wing of the sphenoid bone. It is very difficult to appreciate on prior noncontrast MRI because of lack of gadolinium based contrast agent in that scan, but it was pro bably there but significantly smaller than it is now. The tumor mass encroaches upon the left middle cranial fossa, reaches the dura, and mildly indents the left temporal lobe tip. It does not ca use vasogenic edema. As for the lesion found in the right cerebellum on the recent CT, it consists of a cluster of multipl e small and tiny old lacunar infarctions in the right cerebellar hemisphere. Most of the lesions are several millimeters in size. The largest lesion is up to 1 cm. These were present, in retrospect, on the 08/31/2018 MRI. There is diffusely increased dural enhancement throughout the supratentorial and posterior fossa jen ons. Ventricles are normal in size and configuration. Diffuse brain parenchymal volume loss, mild. No mass effect, midline shift, or extra-axial fluid collection. No evidence of acute intra-axial hemorrhage. No restricted diffusion to indicate any acute infarction. Thin slice postcontrast images demonstrate several tiny foci of intraosseous enhancement in the calvarium scattered. These could represent represent either tiny osseous metastases or tiny hemangiomas of bone. IMPRESSION: 1) growing osseous skull metastasis destroying a portion of the left greater wing of the sphenoid bon e, protruding into the left middle cranial fossa. 2) the lesion mentioned on the CT report is a cluster of a large number of small and tiny old lacunar infarctions of the right cerebellar hemisphere. 3) diffuse, mildly increased pachymeningeal enhancement. This is nonspecific, and possibilities inclu de recent lumbar puncture, reactive enhancement, and significantly less likely diffuse pachymeningeal metastatic involvement. 4) no acute intracranial findings.
[2018-12-09] MEDS: Lactated Ringer's 1,000 ML IV SCH ×2 (20:00→22:39)
[2018-12-10] MEDS: Lactated Ringer's 1,000 ML IV SCH (04:06)
--- NOTE | 2018-12-10 06:35 | PDOC.FM ---
- Subjective Subjective: NAEO. Patient resting comfortably in bed. No complaints. Patient has much improved speech as compared to yesterday. Able to get words out and using them appropriately. Axox3. - Objective MAR Reviewed: Yes Vital Signs & Weight: Vital Signs (12 hours) Temp Pulse Resp BP Pulse Ox 12/10/18 04:00 97.6 F 100 16 121/63 99 12/10/18 00:00 98.4 F 115 H 18 116/70 96 12/09/18 20:06 98.7 F 118 H 20 123/60 100 Weight Weight 79.923 kg Result Diagrams: 12/10/18 10:00 12/10/18 10:00 Phys Exam - Physical Examination Constitutional: NAD HEENT: PERRLA, moist MMs Neck: supple, full ROM Respiratory: no wheezing, clear to auscultation bilateral Cardiovascular: RRR Gastrointestinal: soft, non-tender Musculoskeletal: pulses present Neurological: non-focal Psychiatric: normal affect, A&O x 3 Skin: no rash, normal turgor, cap refill <2 seconds Dx/Plan (1) Aphasia Code(s): R47.01 - APHASIA Status: Acute (2) Adrenal insufficiency Code(s): E27.40 - UNSPECIFIED ADRENOCORTICAL INSUFFICIENCY Status: Chronic (3) CAD (coronary artery disease) Code(s): I25.10 - ATHSCL HEART DISEASE OF [place] CORONARY ARTERY W/O ANG PCTRS Status: Chronic Qualifiers: Coronary Disease-Associated Artery/Lesion type: [place] artery Associated angina: without angina (4) CKD (chronic kidney disease) stage 3, GFR 30-59 ml/min Status: Chronic (5) COPD (chronic obstructive pulmonary disease) Status: Chronic Qualifiers: COPD type: COPD with acute exacerbation Qualified Code(s): J44.1 - Chronic obstructive pulmonary disease with (acute) exacerbation (6) GERD (gastroesophageal reflux disease) Code(s): K21.9 - GASTRO-ESOPHAGEAL REFLUX DISEASE WITHOUT ESOPHAGITIS Status: Chronic (7) Hx of kidney transplant Status: Chronic (8) Hyperlipidemia Code(s): E78.5 - HYPERLIPIDEMIA, UNSPECIFIED Status: Chronic (9) Hypothyroid Code(s): E03.9 - HYPOTHYROIDISM, UNSPECIFIED Status: Chronic (10) IDDM (insulin dependent diabetes mellitus) Code(s): E11.9 - TYPE 2 DIABETES MELLITUS WITHOUT COMPLICATIONS; Z79.4 - PATIENT ACCESS DIRECTOR (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 OF INSULIN Status: Chronic (11) Morbid obesity with BMI of 40.0-44.9, adult Code(s): E66.01 - MORBID (SEVERE) OBESITY DUE TO EXCESS CALORIES; Z68.41 - BODY MASS INDEX (BMI) 40.0-44.9, ADULT Status: Chronic (12) Normocytic anemia Code(s): D64.9 - ANEMIA, UNSPECIFIED Status: Chronic (13) JUDI on CPAP Code(s): G47.33 - OBSTRUCTIVE SLEEP APNEA (ADULT) (PEDIATRIC) Status: Chronic (14) Prostate cancer Code(s): C61 - MALIGNANT NEOPLASM OF PROSTATE Status: Chronic - Plan Plan: Aphasia 2/2 CVA vs Metastatic disease vs Adrenal insufficiency Patient presenting w/ 3 days of slurred speech. CT showing hypodense lesion in right anterior inferior cerebellum, no hemorrhage. - MRI: growing osseous skull metastasis destroying a portion of the left greater wing of the sphenoid bone protruding into the left middle cranial fossa ; tiny old infarcts of right cerebellum; increased pachymeningeal enchancement. No acute stroke. - s/p loading dose of steroids, continue hydrocortisone - mIVF - Stroke team consulted, speech, PT/OT consulted; Fall precautions - Patient sees Dr. Coon for prostate cancer, can consider consulting due to MRI findings - Palliative care consulted. They have seen patient multiple times. Would appreciate recs for goals of care and for patient to potentially go home with palliative services. Adrenal insufficiency - see above Hypothyroid - TSH nml DDM2 - Mild Sliding scale Macrocytic anemia, chronic - Hb around baseline - Continue home folic acid Prostate CA w/ mets - Continue home medications, patient recently saw [facility] who states patient too weak to continue with chemotherapy Recurrent N/V, chronic - zofran PRN COPD - Duonebs PRN Code: FULL DVT ppx: lovenox GI ppx: none PCP: [facility] Dispo: > 2 midnights Addendum - Attending - Attending Attestation Date/Time: 12/11/18 5099 I personally evaluated the patient and discussed the management with Dr. Wilkins I agree with the History, Examination, Assessment and Plan documented above with any addition or exceptions noted below. Hgb 6.4 transfuse 1 unit PRBC. Brain MRI with lacunar infarcts and osteoblastic skull lesions consistent with his known metastatic prostrate CA. Candid discussion with patient and regard advanced metastatic prostrate carcinoma with strong recommendation to consider Hospice. Patient with past negative hospice experience with family member he remains full code with desire to continue palliative care.
[2018-12-10] MEDS ORDERED: HYDROcodone/Acetaminophen 10/325 mg Tablet PO PRN (08:54)
[2018-12-10] MEDS ORDERED: Ondansetron ODT 4 MG TAB PO PRN ×2 (08:54→09:18)
[2018-12-10] MEDS ORDERED: PROVENTIL INHALER 6.7 G (200 INHALATIONS) INH PRN (08:54)
[2018-12-10] MEDS ORDERED: traMADol HCl 50 MG TAB PO PRN (08:54)
[2018-12-10] MEDS ORDERED: DIABETIC MC PRN (08:54)
[2018-12-10] MEDS ORDERED: Polyethylene Glycol 3350 17 GM Packet PO PRN ×2 (08:54→09:19)
[2018-12-10] MEDS ORDERED: Colchicine 0.6 MG TAB PO PRN (08:54)
[2018-12-10] MEDS ORDERED: Diphenoxylate HCl/Atropine Tablet PO PRN (08:54)
[2018-12-10] MEDS ORDERED: Allopurinol 100 MG TAB PO SCH (09:00)
[2018-12-10] MEDS ORDERED: Fluticasone Propionate Nasal Spray 16 gm Bottle NASAL SCH (09:00)
[2018-12-10] MEDS ORDERED: Non-Formulary Item 1 EACH (Magnesium Oxide [Mag-Oxide] 400 MG) PO SCH (09:00)
[2018-12-10] MEDS ORDERED: Tacrolimus 0.5 MG CAP PO SCH (09:00)
[2018-12-10] MEDS ORDERED: Non-Formulary Item 1 EACH (Amlodipine Besylate [Amlodipine Besylate] 1 TAB) PO SCH (09:00)
[2018-12-10] MEDS: Enoxaparin Sodium 40 MG/0.4 ML SYRINGE SC SCH (10:04)
[2018-12-10] MEDS: Pantoprazole 40 MG VIAL IVP SCH (10:05)
--- NOTE | 2018-12-10 10:16 | PDOC.PALCO ---
Palliative Care Consult - Consult Details Requesting Physician: Dr Wilkins Reason for Consult: goals of care, assistance with communication prognosis/ disease - Pertinent HPI Patient presented to ER iwth altered mental status and increase in weakness. CT indicated a new lesions to the right anterior inferior aspect of the cerebellum. Patient admitted. - Pertinent PMH Prostate Ca with metastasis, Anemia, COPD, Adrenal Insufficiency, DM II. Recent decline in relation to fatigue and onset of aphasia that has resolved. - Social History Alcohol Use: none Drug Use History: none Living Situation: - Medications MAR Reviewed: Yes - Allergies Allergies/Adverse Reactions: Allergies Allergy/AdvReac Type Severity Reaction Status Date / Time Latex, Natural Rubber Allergy Verified 12/09/18 17:21 morphine Allergy Verified 12/09/18 17:21 NSAIDS (Non-Steroidal Allergy Verified 12/09/18 17:21 Anti-Inflamma Penicillins Allergy Severe Verified 12/09/18 17:21 Hives povidone-iodine Allergy Rash Verified 12/09/18 17:21 [From Betadine] shellfish derived Allergy Verified 12/09/18 17:21 Tetracyclines Allergy Verified 12/09/18 17:21 lisinopril AdvReac Mild COUGHING Verified 12/09/18 17:21 - Subjective Mr Joseph was resting in bed upon my arrival, at bedside. Slow slightly slurred verbal response but fully oriented. Extreme weakness. Patient states generalized "bone pain" with greater significance to lower extremities. Life review with patient, still desiring to remain with full resuscitation measures in place, but also states he would like "to in his sleep". Education on disease progression, with conversation of quality of life and consideration of hospice. Patient voiced negative past experience with his previous and her hospice care. Will follow up this afternoon. - Objective Vital Signs: Vital Signs - Most Recent Temp Pulse Resp BP Pulse Ox 97.4 F L 88 18 117/69 97 12/10/18 07:44 12/10/18 07:44 12/10/18 07:44 12/10/18 07:44 12/10/18 07:44 Palliative Performance Scale: 30 - Physical Exam Constitutional: NAD HEENT: PERRLA, moist MMs, EOMI Respiratory: no wheezing, unlabored breathing Cardiovascular: irregular Gastrointestinal: soft, non-tender Musculoskeletal: pulses present Deviation from normal: Mildly slurred speech, delayed verbal response Psychiatric: A&O x 3 - Problem List (1) Palliative care encounter Code(s): Z51.5 - ENCOUNTER FOR PALLIATIVE CARE Current Visit: Yes Status: Acute (2) Macrocytic anemia Code(s): D53.9 - NUTRITIONAL ANEMIA, UNSPECIFIED Current Visit: No Status: Acute (3) Prostate cancer Code(s): C61 - MALIGNANT NEOPLASM OF PROSTATE Current Visit: No Status: Chronic Comments: metastasis now impacting quality of life with increase in pain, episodes of aphasia, increase in weakness. - Plan/Recommendations Plan: *Continue conversations in regards to DNAR and OOHDNR and outcomes *Follow up with conversation to quality of life and patient desiring to be at home and " in his sleep" and benefit of hospice or palliation with home health. *Identify if Patient had MPOA and if not obtain [80] minutes spent on this encounter with >50% of the time in counseling and coordination of care. Thank you for this very appropriate consult.
[2018-12-10] MEDS: Digoxin 0.125 MG TAB PO SCH (10:21)
[2018-12-10] MEDS: Amlodipine 5 MG TAB PO SCH (10:21)
[2018-12-10] MEDS: Aspirin 325 mg Enteric Coated Tablet PO SCH (10:21)
[2018-12-10] MEDS: Potassium Chloride 20 MEQ TAB PO SCH (10:21)
[2018-12-10] MEDS: Mycophenolate 250 MG CAP PO SCH ×2 (10:23→19:54)
[2018-12-10 10:24] LABS: #Basophils 0.1 thou/uL (0.0-0.2); #Lymphocytes 3.4 thou/uL (1.20-3.40); #Monocytes 0.6 thou/uL (0.11-0.59); #Neutrophils 3.5 thou/uL (1.40-6.50); %Basophils 1.2 % (0.0-1.0); %Eosinophils 0.5 % (0.0-10.0); %Lymphocytes 44.3 % (21.0-51.0); %Monocytes 7.4 % (0.0-10.0); %Neutrophils 46.6 % (42.0-75.0); Hemoglobin 6.4 g/dL (14.0-18.0); Mean Corpuscular Hemoglobin 31.6 pg (27.0-31.0); Mean Corpuscular Volume 98.5 fL (78.0-98.0); Platelet Count 215 thou/uL (130-400); RBC Distribution Width 20.7 % (11.5-14.5); Red Blood Cell (RBC) Count 2.04 mill/uL (4.70-6.10); White Blood Cell (WBC) Count 7.6 thou/uL (4.8-10.8)
[2018-12-10] MEDS: Atorvastatin Calcium 10 MG TAB PO SCH (10:24)
[2018-12-10] MEDS: Allopurinol 300 MG TAB PO SCH (10:24)
[2018-12-10] MEDS: Magnesium Oxide 400 MG TAB PO SCH ×2 (10:25→19:56)
[2018-12-10] MEDS: Hydrocortisone 10 mg Tablet PO SCH ×3 (10:25→19:57)
[2018-12-10] MEDS: Metoclopramide HCl 10 MG TAB PO SCH ×3 (10:26→19:54)
[2018-12-10] MEDS: Gabapentin 300 MG CAP PO SCH ×2 (10:26→19:53)
[2018-12-10] MEDS: Folic Acid 1 MG TAB PO SCH (10:26)
[2018-12-10] MEDS: Ondansetron PF 4 MG/2 ML Vial IVP PRN ×2 (10:31→18:30)
[2018-12-10 10:43] LABS: Anion Gap 16 mmol/L (10-20); BUN (Urea Nitrogen) 11 mg/dL (8.4-25.7); Calc. Creatinine Clearance 121 mL/min (70-130); Calcium 7.8 mg/dL (7.8-10.44); Carbon Dioxide 16 mmol/L (23-31); Chloride 110 mmol/L (98-107); Estimated GFR-MDRD Greater than 90; Glucose 73 mg/dL (80-115); Potassium 3.8 mmol/L (3.5-5.1); Sodium 138 mmol/L (136-145)
--- NOTE | 2018-12-10 11:53 | PQF ---
DATE: 12-10-18 ATTN: DR. ROSA SMITH Please exercise your independent, professional judgment in responding to the clarification form. Clinical indicators are provided on the bottom of this form for your review Please check appropriate box(s): [ x ] Encephalopathy: Etiology: [ ] Metabolic [ ] Toxic [ x ] Other (please specify) [ ] Transient Alteration of Awareness [ x] Other diagnosis ___adrenal insufficiency [ ] Unable to determine In addition, please specify: Present on Admission (POA): [x ] Yes [ ] No [ ] Unable to determine For continuity of documentation, please document condition throughout progress notes and discharge summary. Thank You. CLINICAL INDICATORS - SIGNS / SYMPTOMS / LABS: H&P: ACUTE ENCEPHALOPATHY 2/2 CVA VS METASTATIC DISEASE VS ADRENAL CRISIS RISK FACTORS: H&P: HX HTN, ADRENAL INSUFF, PROSTATE CA, DM 2, CKD, ANEMIA, CONFUSION , COPD, GOUT, SEIZURES, CKD 3, HFpEF TREATMENTS: 12-09-18: CT BRAIN H&P: ADMITTED TO STROKE FLOOR, START DEXAMETHASONE AND ORAL STEROIDS (This form is maintained as a part of the permanent medical record) 2014 [employer]. All Rights Reserved [email or web address] [email or web address] Office: [phone] [facility] HOSPITALYulia
[2018-12-10] MEDS: Tacrolimus 1 MG CAP PO SCH (19:57)
[2018-12-11 06:04] LABS: Hemoglobin 6.8 g/dL (14.0-18.0)
--- NOTE | 2018-12-11 07:35 | PDOC.FM ---
- Subjective Subjective: MIREILLE overnight. Pt slept well overnight and feels fine this morning. No acute complaints. Pt requesting to go home. Pt denies TORREZ, CP, palpitations, SOB, NVD. - Objective MAR Reviewed: Yes Vital Signs & Weight: Vital Signs (12 hours) Temp Pulse Resp BP Pulse Ox 12/11/18 04:08 97.6 F 71 16 113/61 98 12/11/18 00:12 98.0 F 84 16 119/60 100 12/10/18 19:52 97.6 F 85 18 120/60 99 Weight Admit Weight 79.923 kg Weight 79.923 kg I&O: 12/10/18 12/11/18 12/12/18 06:59 06:59 06:59 Intake Total 0 Balance 0 Result Diagrams: 12/11/18 05:45 12/10/18 10:00 Phys Exam - Physical Examination Constitutional: NAD HEENT: sclera anicteric Neck: supple Respiratory: no wheezing, clear to auscultation bilateral Cardiovascular: RRR, no significant murmur Gastrointestinal: soft, non-tender Musculoskeletal: pulses present Neurological: non-focal Psychiatric: A&O x 3 Skin: cap refill <2 seconds Dx/Plan (1) Aphasia Code(s): R47.01 - APHASIA Status: Acute Plan: -Pt presented with aphasia which has markedly improved since admission. Initial ddx included CVA vs metastatic disease vs adrenal insufficiency. -Pt had hx of poor PO intake in days leading to admission and improved markedly with stress dose of steroids. -MRI did show worsening skull metastases. Oncology consulted and recommended pt be transitioned to hospice with no further intervention planned. -Continue chronic steroid dosing. (2) Adrenal insufficiency Code(s): E27.40 - UNSPECIFIED ADRENOCORTICAL INSUFFICIENCY Status: Chronic Plan: -Continue steroids per above. (3) Macrocytic anemia Code(s): D53.9 - NUTRITIONAL ANEMIA, UNSPECIFIED Status: Acute Plan: -Chronic but acutely worsened yesterday with Hgb 6.4. -Only improved to 6.8 after 1 unit of pRBC, order placed to transfuse another unit. -Repeat H/H after transfusion. (4) Prostate cancer metastatic to bone Code(s): C61 - MALIGNANT NEOPLASM OF PROSTATE; C79.51 - SECONDARY MALIGNANT NEOPLASM OF BONE Status: Acute (5) Hx of kidney transplant Status: Chronic - Plan Plan: disposition: Continue to monitor. Additional unit of pRBC ordered today, if stable, consider discharge. Palliative care team assistance greatly appreciated. Pt very hesitant to transition to hospice care. Addendum - Attending - Attending Attestation Date/Time: 12/11/18 9826 I personally evaluated the patient and discussed the management with Dr. Fernandez I agree with the History, Examination, Assessment and Plan documented above with any addition or exceptions noted below. Patient alert and will transfuse additional unit PRBCs to achieve hgb greater than 7 continue adrenal replacement. Patient continues to minimize severity of metastatic prostrate CA on monthly lupron, post renal transplant on immunosuppression and condition in general he remains full code status with Palliative care.
[2018-12-11] MEDS: Enoxaparin Sodium 40 MG/0.4 ML SYRINGE SC SCH (09:29)
[2018-12-11] MEDS: Folic Acid 1 MG TAB PO SCH (09:29)
[2018-12-11] MEDS: Aspirin 325 mg Enteric Coated Tablet PO SCH (09:30)
[2018-12-11] MEDS: Atorvastatin Calcium 10 MG TAB PO SCH (09:30)
[2018-12-11] MEDS: Allopurinol 300 MG TAB PO SCH (09:30)
[2018-12-11] MEDS: Metoclopramide HCl 10 MG TAB PO SCH ×3 (09:30→20:23)
[2018-12-11] MEDS: Gabapentin 300 MG CAP PO SCH ×2 (09:32→20:23)
[2018-12-11] MEDS: Hydrocortisone 10 mg Tablet PO SCH ×3 (09:32→20:24)
[2018-12-11] MEDS: Mycophenolate 250 MG CAP PO SCH ×2 (09:32→20:23)
[2018-12-11] MEDS: Magnesium Oxide 400 MG TAB PO SCH ×2 (09:32→20:23)
[2018-12-11] MEDS: Pantoprazole 40 MG VIAL IVP SCH (09:33)
[2018-12-11] MEDS: Tacrolimus 1 MG CAP PO SCH ×2 (09:33→20:23)
[2018-12-11] MEDS: Digoxin 0.125 MG TAB PO SCH (09:35)
[2018-12-11] MEDS: Amlodipine 5 MG TAB PO SCH (09:36)
[2018-12-11] MEDS: Fluticasone Propionate Nasal Spray 16 gm Bottle NASAL SCH (09:54)
[2018-12-11] MEDS: Potassium Chloride 20 MEQ TAB PO SCH (09:55)
--- NOTE | 2018-12-11 11:20 | EKG ---
Test Reason : Blood Pressure : / mmHG Vent. Rate : 118 BPM Atrial Rate : 118 BPM P-R Int : 150 ms QRS Dur : 070 ms QT Int : 326 ms P-R-T Axes : 075 056 211 degrees QTc Int : 456 ms Sinus tachycardia with Premature atrial complexes Abnormal ECG Confirmed by JENNIFER MCCLAIN DO ([id number]), news videotape editor JUDI MORA ([id number]) on 12/11/2018 11:20:04 AM Referred By: Confirmed By:JENNIFER MCCLAIN DO
[2018-12-12 06:28] LABS: Hemoglobin 8.6 g/dL (14.0-18.0)
--- NOTE | 2018-12-12 06:48 | PDOC.FM ---
- Subjective Subjective: Pt seen at bedside in NAD. MIREILLE overnight. Pt slept well overnight and feels fine this morning. No acute complaints. Pt requesting to go home. Pt denies TORREZ, CP, palpitations, SOB, NVD. - Objective MAR Reviewed: Yes Vital Signs & Weight: Vital Signs (12 hours) Temp Pulse Resp BP Pulse Ox 12/11/18 19:46 98.0 F 69 12 115/57 L 99 Weight Admit Weight 79.923 kg Weight 79.923 kg I&O: 12/10/18 12/11/18 12/12/18 06:59 06:59 06:59 Intake Total 0 587 Balance 0 587 Result Diagrams: 12/12/18 06:20 12/10/18 10:00 Phys Exam - Physical Examination Constitutional: NAD HEENT: sclera anicteric Neck: supple Respiratory: no wheezing, clear to auscultation bilateral Cardiovascular: RRR, no significant murmur Gastrointestinal: soft, non-tender Musculoskeletal: pulses present Neurological: non-focal Psychiatric: A&O x 3 Skin: cap refill <2 seconds Dx/Plan (1) Aphasia Code(s): R47.01 - APHASIA Status: Acute Plan: -Pt presented with aphasia which has markedly improved since admission. Initial ddx included CVA vs metastatic disease vs adrenal insufficiency. -Pt had hx of poor PO intake in days leading to admission and improved markedly with stress dose of steroids. -MRI did show worsening skull metastases. Oncology consulted and recommended pt be transitioned to hospice with no further intervention planned. -Continue chronic steroid dosing. (2) Adrenal insufficiency Code(s): E27.40 - UNSPECIFIED ADRENOCORTICAL INSUFFICIENCY Status: Chronic Plan: -Continue steroids per above. (3) Macrocytic anemia Code(s): D53.9 - NUTRITIONAL ANEMIA, UNSPECIFIED Status: Acute Plan: -Chronic but improved s/p 2 units pRBC. (4) Prostate cancer metastatic to bone Code(s): C61 - MALIGNANT NEOPLASM OF PROSTATE; C79.51 - SECONDARY MALIGNANT NEOPLASM OF BONE Status: Acute (5) Hx of kidney transplant Status: Chronic - Plan Plan: disposition: Pt stable and Hgb improved s/p 2 units pRBC. Pt stable for discharge at this time. Addendum - Attending - Attending Attestation Date/Time: 12/12/18 0885 I personally evaluated the patient and discussed the management with Dr. Fernandez I agree with the History, Examination, Assessment and Plan documented above with any addition or exceptions noted below. Dismiss home with close outpatient f/u continue palliative care and Home Health f/u oncology as scheduled and lab to be drawn through mediport and transfuse prn hgb less 7, resume hydrocortisone as adrenal replacement prison prognosis is guarded.
[2018-12-12 08:10] VITALS: BP 113/57; TEMP 97.4
[2018-12-12] MEDS: Hydrocortisone 10 mg Tablet PO SCH (08:20)
[2018-12-12] MEDS: Digoxin 0.125 MG TAB PO SCH (08:21)
[2018-12-12] MEDS: Potassium Chloride 20 MEQ TAB PO SCH (08:21)
[2018-12-12] MEDS: Mycophenolate 250 MG CAP PO SCH (08:21)
[2018-12-12] MEDS: Tacrolimus 1 MG CAP PO SCH (08:21)
[2018-12-12] MEDS: Gabapentin 300 MG CAP PO SCH (08:22)
[2018-12-12] MEDS: Allopurinol 300 MG TAB PO SCH (08:22)
[2018-12-12] MEDS: Metoclopramide HCl 10 MG TAB PO SCH (08:22)
[2018-12-12] MEDS: Folic Acid 1 MG TAB PO SCH (08:22)
[2018-12-12] MEDS: Magnesium Oxide 400 MG TAB PO SCH (08:22)
[2018-12-12] MEDS: Atorvastatin Calcium 10 MG TAB PO SCH (08:22)
[2018-12-12] MEDS: Aspirin 325 mg Enteric Coated Tablet PO SCH (08:22)
[2018-12-12] MEDS: Amlodipine 5 MG TAB PO SCH (08:22)
[2018-12-12] MEDS: Fluticasone Propionate Nasal Spray 16 gm Bottle NASAL SCH (08:33)
[2018-12-12] MEDS: Pantoprazole 40 MG VIAL IVP SCH (08:34)
[2018-12-12] MEDS: Ondansetron PF 4 MG/2 ML Vial IVP PRN (08:48)
--- NOTE | 2018-12-12 14:21 | DIS ---
DATE OF ADMISSION: 12/09/2018 DATE OF DISCHARGE: 12/12/2018 RESIDENT: Niles Fernandez MD. CONSULTS: 1. Palliative Care. 2. Oncology, Minna Cordero NP. 3. Physical Therapy. PROCEDURES PERFORMED: 1. CT brain performed on 12/09/2018, showed a subtle right anterior inferior cerebellar hypodensity. 2. Chest x-ray performed on 12/09/2018, showed no acute process. 3. Brain MRI performed on 12/09/2018, showed a growing osseous skull metastasis destroying a portion of the left greater wing of the sphenoid bone protruding into the left middle cranial fossa, a cluster of large, small, and tiny old lacunar infarcts of the right cerebellar hemisphere, diffuse mildly increased pachymeningeal enhancements; however, no acute intracranial findings are demonstrated. PRIMARY DIAGNOSES: 1. Temporary aphasia secondary to adrenal crisis, resolved. 2. Chronic macrocytic anemia, status post transfusion of 2 units of packed red blood cells, improved. 3. Adrenal insufficiency. 4. Metastatic prostate cancer. 5. History of kidney transplant. SECONDARY DIAGNOSES: 1. Insulin-dependent type 2 diabetes mellitus. 2. Hypothyroidism. 3. Chronic macrocytic anemia. 4. Chronic recurrent nausea and vomiting. 5. Chronic pain secondary to bone metastases. 6. Chronic obstructive pulmonary disease. 7. Gastroesophageal reflux disease. 8. Hyperlipidemia. DISCHARGE MEDICATIONS: 1. Aspirin p.o. daily. 2. Colchicine 0.6 mg p.o. b.i.d. p.r.n. 3. Digoxin 0.125 mg p.o. daily. 4. Folate 1 mg p.o. daily. 5. Allopurinol 300 mg p.o. daily. 6. Reglan 10 mg p.o. t.i.d. 7. Gabapentin 300 mg p.o. q.a.m. 8. Gabapentin 900 mg p.o. at bedtime. 9. Magnesium oxide 400 mg p.o. b.i.d. 10. Metoprolol succinate 100 mg p.o. b.i.d. 11. Atorvastatin 10 mg p.o. at bedtime. 12. Amlodipine 2.5 mg 1 p.o. daily. 13. Zofran 4 mg p.o. q.6 hours p.r.n. 14. Mycophenolate 500 mg p.o. b.i.d. 15. [place] 10 mg p.o. q.4 hours p.r.n. 16. Tramadol 50 mg q.6 hours p.r.n. 17. Flonase daily. 18. Albuterol 2 puffs inhaled q.4 hours p.r.n. 19. MiraLAX daily p.r.n. 20. Phenytoin 100 mg p.o. b.i.d. 21. Potassium chloride 20 mEq p.o. daily. 22. Tacrolimus 1 mg p.o. b.i.d. 23. Hydrocortisone 5 mg p.o. t.i.d. HISTORY OF PRESENT ILLNESS AND HOSPITAL COURSE: The patient is a very pleasant, 68-year-old, gentleman, who has a past medical history of adrenal insufficiency and metastatic prostate cancer, who presents to the hospital regularly with complaints of altered mental status and slurred speech. The patient was initially seen in clinic prior to admission and noted to have slurred speech, altered mental status, and was tachycardic with lower blood pressures. The patient had a 3- to 4-day history of poor oral intake and was not taking his medications regularly. The patient was admitted with the suspicion of adrenal crisis and was given a stress dose of steroids on admission and improved subsequently after receiving dexamethasone 4 mg IV. Due to initial reads of the patient's CT scan, a full stroke workup was completed with an MRI brain, which showed worsening metastatic disease. Multiple conversations were had with the patient's and Palliative Care Team regarding the patient's overall poor prognosis and ultimate plan of care. Multiple physician teams including Oncology and his primary team believed the patient would best benefit from hospice; however, he is extremity hesitant due to previous negative experiences with an old family member. The patient seems to be somewhat in denial of his overall poor prognosis stating multiple times that his prostate cancer is not advanced and that he would like to just go home. Ultimately, the plan was made to have the patient follow up regularly in clinic every 1 to 2 weeks including possible blood work to continue to monitor his chronic anemia. While hospitalized, the patient had a hemoglobin of 6.4, which improved to 8.6 on the day of discharge after 2 units of packed red blood cells. Otherwise, the patient was continued on all his home medications, and it was again stressed to the patient and as to the importance of compliance with his medications including his daily steroids. The patient's hospital course was otherwise uncomplicated. DISPOSITION: Guarded. DISCHARGE INSTRUCTIONS: 1. Location: Home. 2. Diet: Diabetic and heart-healthy diet. 3. Activity: As tolerated. 4. Followup: The patient was instructed to follow up with primary care physician, Dr. Josephine Christina at [facility] within the next few days. The patient will need a repeat hemoglobin and hematocrit top monitor his anemia. The patient was also instructed that he can follow up with Dr. Sedrick Jc at the same clinic. Job ID: [id number]
== END 2018-12-12 11:37 | disposition home or self-care (01) | DRG 644 ==
LOC: ERS 09:58 → 2SE 14:50 → ONC 12-10 18:44
PROVIDERS: ADMIT Family Medicine; ATTEND Family Medicine
DX: E27.2 Addisonian crisis (principal); C79.51 Secondary malignant neoplasm of bone; G93.49 Other encephalopathy; Z94.0 Kidney transplant status; E27.40 Unspecified adrenocortical insufficiency; C61 Malignant neoplasm of prostate; E11.22 Type 2 diabetes mellitus with diabetic chronic kidney disease; I12.9 Hypertensive chronic kidney disease with stage 1 through stage 4 chronic kidney disease, or unspecified chronic kidney disease; N18.3 Chronic kidney disease, stage 3 (moderate); J44.9 Chronic obstructive pulmonary disease, unspecified; K21.9 Gastro-esophageal reflux disease without esophagitis; E78.5 Hyperlipidemia, unspecified; E03.9 Hypothyroidism, unspecified; E66.01 Morbid (severe) obesity due to excess calories; D64.9 Anemia, unspecified; G47.33 Obstructive sleep apnea (adult) (pediatric); G89.29 Other chronic pain; Z88.8 Allergy status to other drugs, medicaments and biological substances; Z91.013 Allergy to seafood; Z91.040 Latex allergy status; Z88.0 Allergy status to penicillin; Z79.82 Long term (current) use of aspirin; Z79.4 Long term (current) use of insulin; Z79.899 Other long term (current) drug therapy; Z68.26 Body mass index [BMI] 26.0-26.9, adult
CPT/HCPCS: 36415; 36416; 36430; 70450; 70553; 71045; 80048; 80053; 82140; 82550; 84443; 84484; 85014; 85018; 85025; 86850; 86900; 86901; 93005; 96361; 96374; C9113; J1100; J1642; J1650; J2060; J2405; J7050; J7507; J7517; J8597; P9016; Q0162

== ENCOUNTER 2019-01-18 17:17 | Observation (INO) | payer MEDICARE ==
[2019-01-18 18:32] LABS: ALT (SGPT) 6 U/L (8-55); AST (SGOT) 13 U/L (5-34); Albumin 2.4 g/dL (3.4-4.8); Alkaline Phosphatase 226 U/L (40-150); Anion Gap 13 mmol/L (10-20); BUN (Urea Nitrogen) 24 mg/dL (8.4-25.7); Bilirubin, Total 0.3 mg/dL (0.2-1.2); Calc. Creatinine Clearance 0 mL/min (70-130); Calcium 9.9 mg/dL (7.8-10.44); Carbon Dioxide 26 mmol/L (23-31); Chloride 103 mmol/L (98-107); Estimated GFR-MDRD Greater than 90; Glucose 145 mg/dL (80-115); Lipase 23 U/L (8-78); Potassium 4.2 mmol/L (3.5-5.1); Protein, Total 5.4 g/dL (5.8-8.1); Sodium 138 mmol/L (136-145)
[2019-01-18 18:38] LABS: Anisocytosis SLIGHT = 6-15 cells (100X) (0-5/hpf); Elliptocytes SLIGHT = 2-5 cells (100X) (0-1/hpf); Hemoglobin 7.8 g/dL (14.0-18.0); Hypochromia SLIGHT = 6-15 cells (100X) (0-5/hpf); MDiff Complete? YES; Macrocytosis SLIGHT = 6-15 cells (100X) (0-5/hpf); Mean Corpuscular HGB CONC 31.7 g/dL (32.0-36.0); Mean Corpuscular Hemoglobin 33.1 pg (27.0-31.0); Mean Platelet Volume 4.6 fL (7.4-10.4); Ovalocytes SLIGHT = 2-5 cells (100X) (0-1/hpf); Platelet Count 256 thou/uL (130-400); Platelet Morphology Comment Appears Adequate; Poikilocytosis SLIGHT = 6-15 cells (100X) (0-5/hpf); Polychromasia SLIGHT = 2-3 cells (100X) (0-2/hpf); RBC Distribution Width 19.7 % (11.5-14.5); Red Blood Cell (RBC) Count 2.34 mill/uL (4.70-6.10); Schistocytes SLIGHT = 2-5 cells (100X) (0-1/hpf); Stomatocytes SLIGHT = 2-5 cells (100X) (0-1/hpf); White Blood Cell (WBC) Count 6.4 thou/uL (4.8-10.8)
[2019-01-18 18:57] LABS: Bilirubin Negative (Negative); Blood, Urine Negative (Negative); Clarity Clear (Clear); Glucose, Urine (Dipstick) Negative (Negative); Leukocyte Negative (Negative); Nitrite Negative (Negative); Protein, Urine (Dipstick) Negative (Neg-Trace); Urobilinogen 0.2 mg/dL (Less than 2)
--- NOTE | 2019-01-18 19:36 | RAD ---
RADIOGRAPH CHEST 01/18/19 COMPARISON: 12/09/18. HISTORY: Vomiting. FINDINGS: There is diffuse increased density involving the osseous structures suggesting osseous metastatic dis ease. There is a left Port-A-Cath in stable position. No pneumothorax, pleural fluid, focal consolida tion or alveolar edema. IMPRESSION: No acute findings. Stable appearance of the chest as described above. POS: OFF
[2019-01-18 21:23] LABS: Troponin I Less than 0.010 ng/mL (< 0.028)
[2019-01-18] MEDS ORDERED: Ondansetron ODT 4 MG TAB SL PRN (21:49)
[2019-01-18] MEDS ORDERED: Ondansetron PF 4 MG/2 ML Vial IVP PRN (21:49)
[2019-01-18 21:58] VITALS: BMI 24.2
--- NOTE | 2019-01-18 23:34 | PDOC.FPRHP ---
- History of Present Illness Chief Complaint: Chest pain, Nausea, vomiting, diarrhea, general malaise History of Present Illness: Mr. Joseph is a pleasant 69 year old male with an extensive PMH significant for adrenal insufficiency, prostate cancer with metastasis, DMII, CKD, and anemia. He presented to the [facility] ER for symptoms of chest pain and nausea with vomiting and diarrhea for the past 2 days. He reports running a low grade fever at home with chills. He also complains of chest pain, substernal that feels like a "baseball hit him in the chest" and at times radiates into his neck. ED Course: 1000mL NS - Allergies/Adverse Reactions Allergies Allergy/AdvReac Type Severity Reaction Status Date / Time shellfish derived Allergy Severe Anaphylaxis Verified 01/18/19 22:05 Latex, Natural Rubber Allergy itch Verified 01/18/19 22:05 morphine Allergy Verified 01/18/19 22:05 NSAIDS (Non-Steroidal Allergy Hives Verified 01/18/19 22:05 Anti-Inflamma Penicillins Allergy Severe Verified 01/18/19 22:05 Hives povidone-iodine Allergy Rash Verified 01/18/19 22:05 [From Betadine] Tetracyclines Allergy Verified 12/09/18 17:21 lisinopril AdvReac Mild COUGHING Verified 01/18/19 22:05 - Home Medications Medication Instructions Recorded Confirmed Type Aspirin [Aspirin EC] 325 mg PO DAILY 02/18/15 01/18/19 History Digoxin [Lanoxin] 0.125 mg PO DAILY #30 tab 09/03/18 01/18/19 Rx Folic Acid [Folvite] 1 mg PO DAILY #30 tab 09/03/18 01/18/19 Rx Allopurinol 300 mg PO DAILY 09/07/18 01/18/19 History Metoclopramide HCl [Reglan] 10 mg PO TID 30 Days #90 tab 09/16/18 01/18/19 Rx Amlodipine Besylate [amLODIPine 1 tab PO DAILY 10/02/18 01/18/19 History Besylate] Atorvastatin Calcium [Lipitor] 10 mg PO DAILY 10/02/18 01/18/19 History Gabapentin [Neurontin] 300 mg PO QAM 10/02/18 01/18/19 History Gabapentin [Neurontin] 900 mg PO HS 10/02/18 01/18/19 History Magnesium Oxide [Mag-Oxide] 400 mg PO BID 10/02/18 01/18/19 History Metoprolol Succinate [Toprol Xl] 100 mg PO BID 10/02/18 01/18/19 History Ondansetron [Zofran ODT] 1 tab PO Q6HR PRN 10/02/18 01/18/19 History Mycophenolate [Cellcept] 500 mg PO BID 11/15/18 01/18/19 History HYDROcodone Bit/APAP 10/325 [[place]] 1 tab PO Q4H PRN #90 tab 11/16/18 01/18/19 Rx traMADol HCl [Ultram] 50 mg PO Q6H PRN #60 tab 11/16/18 01/18/19 Rx Albuterol Sulfate [Proventil Hfa] 2 puff INH Q4H PRN 12/09/18 01/18/19 History Diphenoxylate HCl/Atropine 1 tablet PO Q6HR PRN 12/09/18 01/18/19 History [Lomotil] Fluticasone Propionate [Flonase 2 spray EA NARE PRN PRN 12/09/18 01/18/19 History Nasal [place]] Pen Needle, Diabetic [Insulin Pen 1 each MC Q4HR PRN 12/09/18 01/18/19 History Needle] Phenytoin Sodium Extended 1 capsule PO BID 12/09/18 01/18/19 History [Dilantin] Polyethylene Glycol 3350 [Miralax] 1 packet PO DAILY PRN 12/09/18 01/18/19 History Potassium Chloride [K-Dur] 20 meq PO DAILY 12/09/18 01/18/19 History Tacrolimus 1 mg PO BID 12/09/18 01/18/19 History Hydrocortisone [Cortef] 5 mg PO TID tab 12/12/18 01/18/19 Rx Bumetanide 0.5 mg PO DAILY 01/18/19 01/18/19 History Colchicine 0.6 mg PO PRN PRN 01/18/19 01/18/19 History Esomeprazole Magnesium [NexIUM] 40 mg PO DAILY 01/18/19 01/18/19 History - History PMHx: Adrenal insufficiency IDDMII Obstructive airway disease JUDI Prostate cancer, metastasized HTN HLD CAD Gout Seizure disorder HFpEF H/o SVT Hypothyroid Anemia PSHx: Renal Transplant Left AV fistula Prostatectomy Cholecystectomy Medi-Port FHx: CAD DMII Social: Denies tobacco, alcohol, or illicit drug use. - Vital signs BP: 114/64 HR: 71 RR: 16 Tmax: 97.8 Pox: 100% on RA Wt: 75kg FMR H&P: Results - Labs Result Diagrams: 01/18/19 18:00 01/18/19 18:00 Lab results: WBC 6.4 thou/uL (4.8-10.8) 01/18/19 18:00 Hgb 7.8 g/dL (14.0-18.0) L 01/18/19 18:00 Hct 24.4 % (42.0-52.0) L 01/18/19 18:00 MCV 104.0 fL (78.0-98.0) H 01/18/19 18:00 Plt Count 256 thou/uL (130-400) 01/18/19 18:00 Sodium 138 mmol/L (136-145) 01/18/19 18:00 Potassium 4.2 mmol/L (3.5-5.1) 01/18/19 18:00 Chloride 103 mmol/L (98-107) 01/18/19 18:00 Carbon Dioxide 26 mmol/L (23-31) 01/18/19 18:00 BUN 24 mg/dL (8.4-25.7) 01/18/19 18:00 Creatinine 0.83 mg/dL (0.7-1.3) 01/18/19 18:00 Glucose 145 mg/dL (80-115) H 01/18/19 18:00 Lactic Acid 1.0 mmol/L (0.5-2.2) 01/18/19 18:00 Calcium 9.9 mg/dL (7.8-10.44) 01/18/19 18:00 Total Bilirubin 0.3 mg/dL (0.2-1.2) 01/18/19 18:00 AST 13 U/L (5-34) 01/18/19 18:00 ALT 6 U/L (8-55) L 01/18/19 18:00 Alkaline Phosphatase 226 U/L (40-150) H 01/18/19 18:00 B-Natriuretic Peptide 80.0 pg/mL (0-100) 01/18/19 18:00 Serum Total Protein 5.4 g/dL (5.8-8.1) L 01/18/19 18:00 Albumin 2.4 g/dL (3.4-4.8) L 01/18/19 18:00 Lipase 23 U/L (8-78) 01/18/19 18:00 Urine Ketones Negative mg/dL (Negative) 01/18/19 18:50 Urine Blood Negative (Negative) 01/18/19 18:50 Urine Nitrite Negative (Negative) 01/18/19 18:50 Ur Leukocyte Esterase Negative (Negative) 01/18/19 18:50 - EKG Interpretation EKG: No acute changes compared to old EKG. - Radiology Interpretation Chest x-ray Status: report reviewed by me (No acute process.) FMR H&P: A/P - Problem List (1) Macrocytic anemia Current Visit: No Status: Acute Code(s): D53.9 - NUTRITIONAL ANEMIA, UNSPECIFIED (2) Prostate cancer metastatic to bone Current Visit: No Status: Acute Code(s): C61 - MALIGNANT NEOPLASM OF PROSTATE; C79.51 - SECONDARY MALIGNANT NEOPLASM OF BONE (3) Adrenal insufficiency Current Visit: No Status: Chronic Code(s): E27.40 - UNSPECIFIED ADRENOCORTICAL INSUFFICIENCY (4) CAD (coronary artery disease) Current Visit: No Status: Chronic Code(s): I25.10 - ATHSCL HEART DISEASE OF [place] CORONARY ARTERY W/O ANG PCTRS Qualifiers: Coronary Disease-Associated Artery/Lesion type: sam[place] artery Associated angina: without angina (5) CKD (chronic kidney disease) stage 3, GFR 30-59 ml/min Current Visit: No Status: Chronic (6) COPD (chronic obstructive pulmonary disease) Current Visit: No Status: Chronic Qualifiers: COPD type: COPD with acute exacerbation Qualified Code(s): J44.1 - Chronic obstructive pulmonary disease with (acute) exacerbation (7) GERD (gastroesophageal reflux disease) Current Visit: No Status: Chronic Code(s): K21.9 - GASTRO-ESOPHAGEAL REFLUX DISEASE WITHOUT ESOPHAGITIS (8) Hx of kidney transplant Current Visit: No Status: Chronic (9) Hyperlipidemia Current Visit: No Status: Chronic Code(s): E78.5 - HYPERLIPIDEMIA, UNSPECIFIED (10) Hypothyroid Current Visit: No Status: Chronic Code(s): E03.9 - HYPOTHYROIDISM, UNSPECIFIED (11) IDDM (insulin dependent diabetes mellitus) Current Visit: No Status: Chronic Code(s): E11.9 - TYPE 2 DIABETES MELLITUS WITHOUT COMPLICATIONS; 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 Atypical chest pain vs symptomatic anemia * Hemoglobin has dropped from 9.3 on (12/27) to 7.8 on (01/18). * No obvious source of bleeding. FOBT ordered. * Will repeat hemagram in AM and reevaluate. * Troponins negative x3. * EKG ordered per nursing if he complains of chest pain. 2. Adrenal insufficiency * will continue home meds and add stress dose if he becomes hypotensive. * Hydrocortisone 5mg TID 3. IDDMII * continue home medications - Insulin pen, unknown dose. Will reassess in AM. * Moderate SS insulin * Hyperglycemia protocol 4. Hyperlipidemia * continue home medications - atorvastatin 5. h/o Hypothyroid * not currently taking thyroid supplement 6. History of kidney transplant * continue home medications - tacrolimus 7. Macrocytic anemia * Folate and B12 level ordered with AM hemagram * continue home medications - cellcept, folic acid 8. GERD * continue home medications - pantoprazole 9. COPD * continue home medications - albuterol 10. JUDI on CPAP * continue home CPAP if available. 11. H/o SVT * continue home medications - Digoxin 12. Gout * continue home medications - allopurinol and colchicine 13. Hypertension * continue home medications - amlodipine, bumetanide, 14. Prostate cancer with metastasis * continue home medications - lupron monthly injection, [place], gabapentin and Ultram for pain control, metoclopramide and zofran for nausea 15. history of seizure disorder * continue home medications - dilantin Disposition/LOS: Dispo: observation, <48 hours suspected Code: Full IVF: NS @120 mL/hour Diet: Heart health / consistent carb VTE: Lovenox FMR H&P: Upper Level - Pertinent history 69 yo gentleman transferred from [facility] ER for symptomatic anemia and atypical chestpain. - Pertinent findings T: BP: 114/64 HR: 71 RR: 16 o2sat: 100% RA T:97.8F PE: NAD RRR abdomen soft nondistended nontender Labs: H/H: 7.8/24.4 trop: .01 X 2 alk phosph: 226 EKG: NSR, Pacs - Plan Date/Time: 01/18/19 2332 69 yo man admitted for symptomatic anemia and atypical chest pain. #symptomatic anemia- -will trend H/H; not at transfusion level. Ordered an FOBT. Fluids overnight at maintenance #Atypical chestpain- -trops negative x2; will trend; EKG showed NSR with pacs; will rule out with trending troponins and will get a repeat EKG if chest pain returns #AI-will restart home meds #prostate cancer with gemma-will restart home meds See automotive internet sales consultant note for additional plan on chronic conditions. DVT: Lovenox CODE: Full Roxanne Wilkerson MD, PGY-3 Addendum - Attending - Attending Attestation Date/Time: 01/18/19 5860 I personally evaluated the patient and discussed the management with Dr. Yan I agree with the History, Examination, Assessment and Plan documented above with any addition or exceptions noted below.
[2019-01-19] MEDS: Sodium Chloride 0.9% 1,000 ML IV SCH ×2 (00:15→09:09)
[2019-01-19 01:18] LABS: Troponin I Less than 0.010 ng/mL (< 0.028)
[2019-01-19] MEDS ORDERED: HYDROcodone/Acetaminophen 10/325 mg Tablet PO PRN (01:51)
[2019-01-19] MEDS ORDERED: Diphenoxylate HCl/Atropine Tablet PO PRN (01:51)
[2019-01-19] MEDS ORDERED: PROVENTIL INHALER 6.7 G (200 INHALATIONS) INH PRN (01:51)
[2019-01-19] MEDS ORDERED: Polyethylene Glycol 3350 17 GM Packet PO PRN (01:51)
[2019-01-19] MEDS ORDERED: DIABETIC MC PRN (01:51)
[2019-01-19] MEDS ORDERED: Ondansetron ODT 4 MG TAB PO PRN (01:51)
[2019-01-19] MEDS ORDERED: traMADol HCl 50 MG TAB PO PRN (01:51)
[2019-01-19] MEDS ORDERED: Colchicine 0.6 MG TAB PO PRN (01:51)
[2019-01-19] MEDS ORDERED: Insulin Regular 300 UNITS/3 ML VIAL SC PRN ×2 (03:39)
[2019-01-19] MEDS ORDERED: Dextrose 5% in Water 1,000 ML IV PRN (03:39)
[2019-01-19] MEDS ORDERED: Dextrose 50% Abboject 50 ML SYRINGE SLOW IVP PRN (03:39)
[2019-01-19 05:46] LABS: Hemoglobin 7.2 g/dL (14.0-18.0); Mean Corpuscular HGB CONC 32.4 g/dL (32.0-36.0); Mean Corpuscular Hemoglobin 33.9 pg (27.0-31.0); Platelet Count 255 thou/uL (130-400); RBC Distribution Width 18.5 % (11.5-14.5); Red Blood Cell (RBC) Count 2.12 mill/uL (4.70-6.10)
--- NOTE | 2019-01-19 06:28 | PDOC.FM ---
- Subjective Subjective: Pt is doing well this morning without any acute events overnight. Pt endorses generalized fatigue and drowsiness. Still endorses left sided chest pain desrcibed as a soreness and worse with movement. No associated SOB, n/v/d/c, fevers/chills, diaphoresis, or radiation of the pain. - Objective MAR Reviewed: Yes Vital Signs & Weight: Vital Signs (12 hours) Temp Pulse Resp BP BP Pulse Ox 01/19/19 04:36 97.1 F L 69 14 95/54 L 01/18/19 21:33 97.8 F 71 16 114/64 100 Weight Weight 74.298 kg Result Diagrams: 01/19/19 05:30 01/18/19 18:00 Additional Labs: FOBT negative. Trop <0.01 x3. Mg 1.3, Phos 3.7. B12 391. Phys Exam - Physical Examination Constitutional: NAD HEENT: PERRLA, moist MMs Neck: supple Respiratory: no wheezing, no rales, no rhonchi, clear to auscultation bilateral Cardiovascular: RRR, no significant murmur, no rub Gastrointestinal: soft, non-tender, no distention, positive bowel sounds Musculoskeletal: no edema, pulses present 5/5 strength throughout Neurological: non-focal, normal sensation, moves all 4 limbs CN II - XII intact. Deviation from normal: drowsy. Dx/Plan (1) Chest pain Code(s): R07.9 - CHEST PAIN, UNSPECIFIED Status: Acute (2) Normocytic anemia Code(s): D64.9 - ANEMIA, UNSPECIFIED Status: Chronic (3) Nausea & vomiting Code(s): R11.2 - NAUSEA WITH VOMITING, UNSPECIFIED Status: Acute (4) Prostate cancer metastatic to bone Code(s): C61 - MALIGNANT NEOPLASM OF PROSTATE; C79.51 - SECONDARY MALIGNANT NEOPLASM OF BONE Status: Acute (5) Adrenal insufficiency Code(s): E27.40 - UNSPECIFIED ADRENOCORTICAL INSUFFICIENCY Status: Chronic (6) CAD (coronary artery disease) Code(s): I25.10 - ATHSCL HEART DISEASE OF [place] CORONARY ARTERY W/O ANG PCTRS Status: Chronic Qualifiers: Coronary Disease-Associated Artery/Lesion type: [place] artery Associated angina: without angina (7) COPD (chronic obstructive pulmonary disease) Status: Chronic Qualifiers: COPD type: COPD with acute exacerbation Qualified Code(s): J44.1 - Chronic obstructive pulmonary disease with (acute) exacerbation (8) Hx of kidney transplant Status: Chronic (9) Hyperlipidemia Code(s): E78.5 - HYPERLIPIDEMIA, UNSPECIFIED Status: Chronic (10) IDDM (insulin dependent diabetes mellitus) Code(s): E11.9 - TYPE 2 DIABETES MELLITUS WITHOUT COMPLICATIONS; 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 1. Atypical chest pain, likely MSK vs symptomatic anemia - pain reproducible with palpation of chest wall, will provide tylenol for pain control and monitor - no current n/v or diaphoresis. Zofran prn - Hemoglobin has dropped from 9.3 on (12/27) to 7.8 on (01/18). No obvious source of bleeding. FOBT negative. - Troponins negative x3. - Will check Vit D. 2. Macrocytic anemia - no acute s/s of bleed - continue to trend H/H. Possible anemia of chronic disease. - Folate and B12 WNL - continue home medications - cellcept, folic acid 3. Hypomag - 1.3 today, will replace. 4. Adrenal insufficiency - will continue homehydrocortisone and add stress dose if he becomes hypotensive. 5. IDDMII - continue home insulin and SS, hyperglycemia protocol. 6. Hyperlipidemia - continue home medications - atorvastatin 7. h/o Hypothyroid - not currently taking thyroid supplement. TSH 2.6. 8. History of kidney transplant - continue home medications - tacrolimus 9. GERD - continue home medications - pantoprazole 10. COPD - continue home medications - albuterol 11. JUDI on CPAP - continue home CPAP if available. 12. H/o SVT - continue home medications - Digoxin 13. Gout - continue home medications - allopurinol and colchicine 14. Hypertension - continue home medications - amlodipine, bumetanide, 15. Prostate cancer with metastasis - continue home medications - lupron monthly injection, [place], gabapentin and Ultram for pain control, metoclopramide and zofran for nausea 16. history of seizure disorder - continue home medications - dilantin - Will check dilantin level this am as is concerned it may not be therapeutic because he had eye twitching a few weeks ago. Code: Full IVF: NS @120 mL/hour Diet: Heart health / consistent carb VTE: Lovenox Dispo: Improved this morning, pending further clinical improvement and workup. Anticipate hospitalization < 48 hours.
[2019-01-19 06:52] LABS: Magnesium 1.3 mg/dL (1.6-2.6); Phosphorus 3.7 mg/dL (2.3-4.7)
[2019-01-19] MEDS ORDERED: Gabapentin 300 MG CAP PO SCH ×2 (09:00→21:00)
[2019-01-19] MEDS ORDERED: Bumetanide 1 MG TAB PO SCH (09:00)
[2019-01-19] MEDS ORDERED: Tacrolimus 0.5 MG CAP PO SCH (09:00)
[2019-01-19] MEDS ORDERED: Enoxaparin Sodium 40 MG/0.4 ML SYRINGE SC SCH (09:00)
[2019-01-19] MEDS ORDERED: Folic Acid 1 MG TAB PO SCH (09:00)
[2019-01-19] MEDS ORDERED: Allopurinol 300 MG TAB PO SCH ×2 (09:00)
[2019-01-19] MEDS ORDERED: Metoclopramide HCl 10 MG TAB PO SCH (09:00)
[2019-01-19] MEDS ORDERED: Potassium Chloride 20 MEQ TAB PO SCH (09:00)
[2019-01-19] MEDS ORDERED: Amlodipine 5 MG TAB PO SCH (09:00)
[2019-01-19] MEDS ORDERED: Atorvastatin Calcium 10 MG TAB PO SCH (09:00)
[2019-01-19] MEDS ORDERED: Hydrocortisone 10 mg Tablet PO SCH (09:00)
[2019-01-19] MEDS ORDERED: Mycophenolate 250 MG CAP PO SCH (09:00)
[2019-01-19] MEDS ORDERED: Aspirin 325 mg Enteric Coated Tablet PO SCH (09:00)
[2019-01-19] MEDS ORDERED: Magnesium Oxide 400 MG TAB PO SCH ×2 (09:00)
[2019-01-19] MEDS ORDERED: Digoxin 0.125 MG TAB PO SCH (09:00)
[2019-01-19] MEDS ORDERED: Cyclobenzaprine 10 MG TAB PO SCH (09:15)
--- NOTE | 2019-01-19 11:57 | PRG ---
DATE OF SERVICE: 01/19/2019 SUBJECTIVE: Mr. Joseph is a pleasant 69-year-old black male, who was admitted with chest pain, nausea, vomiting, and diarrhea for the past two days. He has a history of CAD, but his chest pain sounds more MSK and that is sharp, left-sided, and definitely reproducible to deep palpation. He also has a history of metastatic prostate cancer and resulting chronic anemia, which will bear watching as he is now down to a hemoglobin of 7.2. He should be followed carefully as an outpatient as he will likely require transfusion within the next several weeks. In the event, his troponins are all less than 0.01. His EKG shows no acute ischemic changes. He will likely be discharged later this afternoon. He is also encouraged to follow up with his [employer] administrator as he has not seen her for at least a year. Job ID: [id number]
[2019-01-19] MEDS ORDERED: Cyclobenzaprine 10 MG TAB PO PRN (12:00)
[2019-01-19 12:06] VITALS: BP 94/53; TEMP 97.7
--- NOTE | 2019-01-20 10:49 | DIS ---
DATE OF ADMISSION: 01/18/2019 DATE OF DISCHARGE: 01/19/2019 RESIDENT: Po Knott MD. ADMITTING ATTENDING: Sedrick Jc MD. DISCHARGE ATTENDING: Pal Urbano MD. CONSULTS: None. PROCEDURES: Chest x-ray demonstrating no acute findings. Diffuse increased density involving the osseous structures suggestive of osseous metastatic disease, stable in appearance. PRIMARY DIAGNOSES: Atypical chest pain, likely musculoskeletal in nature. SECONDARY DIAGNOSES: 1. Chronic microcytic anemia. 2. Hypomagnesemia. 3. Adrenal insufficiency. 4. Insulin-dependent type 2 diabetes. 5. Hyperlipidemia. 6. History of kidney transplant. 7. Gastroesophageal reflux disease. 8. Chronic kidney disease. 9. Obstructive sleep apnea, on CPAP. 10. History of supraventricular tachycardia. 11. Gout. 12. Hypertension. 13. Prostate cancer with metastasis. 14. History of seizure disorder. DISCHARGE MEDICATIONS: 1. Flexeril 10 mg t.i.d. p.r.n. 2. Magnesium oxide 400 mg p.o. b.i.d. x2 days. 3. Aspirin 325 mg p.o. daily. 4. Digoxin 0.125 mg p.o. daily. 5. Folic acid 1 mg p.o. daily. 6. Allopurinol 300 mg p.o. daily. 7. Metoclopramide 10 mg p.o. t.i.d. 8. Gabapentin 300 mg p.o. q.a.m. 9. Gabapentin 900 mg p.o. at bedtime. 10. Toprol-XL 100 mg p.o. b.i.d. 11. Atorvastatin 10 mg p.o. daily. 12. Norvasc 2.5 mg p.o. daily. 13. Zofran 4 mg p.o. q.6 hours p.r.n. 14. CellCept 500 mg p.o. b.i.d. 15. [place] 10 one tablet p.o. q.4 hours p.r.n. 16. Tramadol 50 mg p.o. q.6 hours p.r.n. 17. Flonase 2 sprays in each nares p.r.n. 18. Proventil two puffs q.4 hours p.r.n. 19. MiraLAX 1 packet p.o. daily p.r.n. 20. Dilantin 100 mg p.o. b.i.d. 21. Lomotil 1 tablet p.o. q.6 hours p.r.n. 22. Potassium chloride 20 mEq p.o. daily. 23. Tacrolimus 0.5 mg p.o. b.i.d. 24. Hydrocortisone 5 mg p.o. t.i.d. 25. Nexium 40 mg p.o. daily. 26. Bumetanide 0.5 mg p.o. daily. 27. Colchicine 0.6 mg p.o. p.r.n. Discontinued medications none. HISTORY OF PRESENT ILLNESS AND HOSPITAL COURSE: Mr. Joseph is a pleasant 69-year- old male with history of stage IV prostate cancer, adrenal insufficiency, insulin dependent type 2 diabetes, and heart failure with preserved ejection fraction, who presented to the [facility] ER for symptoms of chest pain, nausea, vomiting, and diarrhea for the past 2 days along with low-grade fever and chills. His chest pain is described as a baseball hitting the chest and at times radiate into the neck. In the ED, he was given 1 L normal saline bolus and got an EKG that showed no acute change compared to an old EKG. Chest x-ray demonstrated findings as above. He was admitted to observation on telemetry for further evaluation and management. Overnight, the patient did well and had resolution of his nausea, vomiting, diarrhea, and no acute events on telemetry. His troponins were trended and negative x3. On the morning of discharge, the patient complained of left-sided chest pain, however, the pain was reproducible with palpation to the chest wall. He was given 10 mg Flexeril with complete resolution of his chest pain in conjunction with his pain medications he takes on a regular basis. The patient did not have any return of nausea, vomiting, diaphoresis, or shortness of breath. The patient was eager to be discharged home and to follow up with his family psychologist, Dr. Wilburn as an outpatient. It was determined his cardiac chest pain suspicion was low, thus his chest pain ACS was ruled out with negative trops and normal EKG. The patient was told to follow up with his family psychologist for further evaluation. Of note, the patient also had a chronic anemia down to a hemoglobin of 7.8. He was asymptomatic from this anemia and had no obvious signs and symptoms of bleeding. FOBT was ordered and was negative and his hemoglobin was stable upon discharge. The patient's magnesium was also checked and was low, thus the patient was to continue his at-home magnesium prescription for replacement. This will need to be checked by his primary care physician in the future. All of his chronic medical conditions were treated with his home medication regimen and he tolerated all this well. The patient did state that he would like his Dilantin level checked, thus the Dilantin level was ordered and was noted to be low at 5.5, thus this level will need to be adjusted by his primary care physician as the patient has already been discharged by the time this had resulted. On the morning of discharge, the patient was doing well without any symptoms and was eager to be discharged home. Discharge plan was discussed with the patient as well as need to follow up with primary care physician within 1 week and his family psychologist as well. The patient and voiced agreement and understanding of discharge plan and was eager to go home. The patient was then discharged home to follow up as directed. DISPOSITION: Stable. DISCHARGE INSTRUCTIONS: 1. Location: Home. 2. Diet: Heart healthy with low-sodium. 3. Activity: As tolerated. 4. Followup: The patient to follow up with primary care physician within 1 week as well as family psychologist within the next week. Job ID: [id number] [facility]'S HOSPITALYulia
== END 2019-01-19 15:28 | disposition home or self-care (01) ==
LOC: SCSER 17:17 → 2SW 21:38
PROVIDERS: ADMIT Family Medicine; ATTEND Family Medicine
DX: R07.2 Precordial pain (principal); D53.9 Nutritional anemia, unspecified; R19.7 Diarrhea, unspecified; E83.42 Hypomagnesemia; E27.40 Unspecified adrenocortical insufficiency; I13.0 Hypertensive heart and chronic kidney disease with heart failure and stage 1 through stage 4 chronic kidney disease, or unspecified chronic kidney disease; E11.22 Type 2 diabetes mellitus with diabetic chronic kidney disease; I50.30 Unspecified diastolic (congestive) heart failure; N18.3 Chronic kidney disease, stage 3 (moderate); E78.5 Hyperlipidemia, unspecified; K21.9 Gastro-esophageal reflux disease without esophagitis; G47.33 Obstructive sleep apnea (adult) (pediatric); M10.9 Gout, unspecified; C61 Malignant neoplasm of prostate; C79.51 Secondary malignant neoplasm of bone; G40.909 Epilepsy, unspecified, not intractable, without status epilepticus; I25.10 Atherosclerotic heart disease of native coronary artery without angina pectoris; E03.9 Hypothyroidism, unspecified; J44.1 Chronic obstructive pulmonary disease with (acute) exacerbation; Z79.4 Long term (current) use of insulin; Z79.82 Long term (current) use of aspirin; Z79.899 Other long term (current) drug therapy; Z88.0 Allergy status to penicillin; Z88.1 Allergy status to other antibiotic agents; Z88.5 Allergy status to narcotic agent; Z88.8 Allergy status to other drugs, medicaments and biological substances; Z91.013 Allergy to seafood; Z91.040 Latex allergy status; Z94.0 Kidney transplant status; Z99.89 Dependence on other enabling machines and devices
CPT/HCPCS: 71045; 80053; 80185; 81003; 82274; 82306; 82607; 82746; 82962; 83605; 83690; 83735; 83880; 84100; 84443; 84484 ×3; 85025; 85027; 86850; 86900; 86901; 87040; 93005 ×2; 96361 ×2; 96372; 96374; 99285; G0378 ×3; 36415; 36416; 93010; 96360; J1642; J1650; J2405; J7507; J7517; J8597

== ENCOUNTER 2019-02-01 14:19 | Emergency (ER) | payer MEDICARE ==
[2019-02-01 15:04] LABS: Hemoglobin 7.6 g/dL (14.0-18.0); Mean Corpuscular HGB CONC 32.9 g/dL (32.0-36.0); Mean Corpuscular Hemoglobin 34.7 pg (27.0-31.0); Mean Platelet Volume 6.2 fL (7.4-10.4); Platelet Count 210 thou/uL (130-400); RBC Distribution Width 18.8 % (11.5-14.5)
[2019-02-01 15:24] LABS: Anisocytosis SLIGHT = 6-15 cells (100X) (0-5/hpf); Band 1 % (5-11); Eosinophils 1 % (0-10); Lymphocytes 41 % (21-51); MDiff Complete? YES; Macrocytosis SLIGHT = 6-15 cells (100X) (0-5/hpf); Metamyelocyte 1 % (0-0); Monocytes 7 % (0-10); Neutrophil 48 % (42-75); Nucleated RBC 1 % (0); Platelet Morphology Comment Appears Adequate; Polychromasia SLIGHT = 2-3 cells (100X) (0-2/hpf); Reactive Lymphocytes 1 % (0-10); Schistocytes SLIGHT = 2-5 cells (100X) (0-1/hpf)
[2019-02-01 15:25] LABS: ALT (SGPT) Less than 7 U/L (8-55); AST (SGOT) 19 U/L (5-34); Albumin 2.3 g/dL (3.4-4.8); Alkaline Phosphatase 232 U/L (40-150); Anion Gap 13 mmol/L (10-20); BUN (Urea Nitrogen) 15 mg/dL (8.4-25.7); Bilirubin, Total 0.3 mg/dL (0.2-1.2); Calc. Creatinine Clearance 0 mL/min (70-130); Calcium 11.1 mg/dL (7.8-10.44); Carbon Dioxide 26 mmol/L (23-31); Chloride 103 mmol/L (98-107); Estimated GFR-MDRD Greater than 90; Globulin 2.9 g/dL (2.4-3.5); Glucose 103 mg/dL (80-115); Potassium 3.5 mmol/L (3.5-5.1); Protein, Total 5.2 g/dL (5.8-8.1); Sodium 138 mmol/L (136-145)
--- NOTE | 2019-02-01 15:30 | CT ---
CT HEAD WITHOUT IV CONTRAST COMPARISON: 12/09/2018 HISTORY: Headache and vomiting. Altered mental status. TECHNIQUE: Axial CT imaging at 5 mm intervals from vertex through skull base without contrast FINDINGS: Previously described low-density areas within the right cerebellar hemisphere are again seen and unch anged demonstrate findings most suggestive of remote infarctions. Findings were also seen on MRI on 12/09/2018. Question of low-density area in the region of the ernie, but this is most likely artifactua l. There is no evidence of an acute infarction, hemorrhage, mass effect, or midline shift. There is mild cerebral volume loss similar to prior study. The ventricular system is normal in size, shape, an d position. Visualized paranasal sinuses are clear. Previously noted lytic destructive lesion involving the lateral aspect left greater wing of the sphen oid bone is again seen, but the area of osseous destruction is larger in size measuring 2.1 cm x 1.3 cm in greatest axial dimensions and previously measured 1.7 cm x 1.2 cm. There is associated soft tissue mass in this region. Findings were also seen on MRI examination. No additional lytic osseous lesions are appreciated. There is mild heterogeneity in the region of the greater wing of sph enoid on the right, but this is thought to be related to the trabecular pattern. IMPRESSION: 1. No acute intracranial abnormality demonstrated. 2. Remote infarctions right cerebellar hemisphere. 3. Destructive osseous lesion involving the greater wing of the left sphenoid bone, and the degree of osseous destruction has increased from prior study. There is associated soft tissue mass seen. This is better visualized on prior MRI exam.
--- NOTE | 2019-02-01 16:10 | RAD ---
EXAM: Single view of the chest HISTORY: Headache and altered mental status COMPARISON: 01/18/2019 FINDINGS: Single view of the chest shows a normal sized cardiomediastinal silhouette. The Mediport i s unchanged in position. There is no evidence of consolidation, mass, or pleural effusion. The bones are unremarkable. IMPRESSION: No evidence of acute cardiopulmonary disease
[2019-02-01 19:01] LABS: Bilirubin Negative (Negative); Blood, Urine Large (Negative); Glucose, Urine (Dipstick) Negative (Negative); Leukocyte Small (Negative); Nitrite Negative (Negative); Protein, Urine (Dipstick) Trace mg/dL (Neg-Trace); Urobilinogen 0.2 mg/dL (Less than 2)
[2019-02-01 19:06] LABS: Clarity Cloudy (Clear)
[2019-02-01 19:19] LABS: Bacteria/HPF 1+ HPF (None Seen); RBC/HPF 0-3 HPF (0-3); Squamous Epithelial 0-3 HPF (0-3)
== END 2019-02-01 19:07 | disposition home or self-care (01) ==
LOC: ERS 14:19
DX: N30.00 Acute cystitis without hematuria (principal); R11.2 Nausea with vomiting, unspecified; R53.1 Weakness; I12.9 Hypertensive chronic kidney disease with stage 1 through stage 4 chronic kidney disease, or unspecified chronic kidney disease; N18.3 Chronic kidney disease, stage 3 (moderate); I25.10 Atherosclerotic heart disease of native coronary artery without angina pectoris; J44.9 Chronic obstructive pulmonary disease, unspecified; M19.90 Unspecified osteoarthritis, unspecified site; G47.33 Obstructive sleep apnea (adult) (pediatric); E03.9 Hypothyroidism, unspecified; E11.22 Type 2 diabetes mellitus with diabetic chronic kidney disease; K21.9 Gastro-esophageal reflux disease without esophagitis; E78.5 Hyperlipidemia, unspecified; E78.00 Pure hypercholesterolemia, unspecified; Z85.46 Personal history of malignant neoplasm of prostate; Z79.82 Long term (current) use of aspirin; Z79.899 Other long term (current) drug therapy; Z79.4 Long term (current) use of insulin; Z79.51 Long term (current) use of inhaled steroids
CPT/HCPCS: 36415; 70450; 71045; 80053; 81003; 81015; 84484; 85025; 87086; 93005; 96360